=== PATIENT | female | born 1990 | race Two or more races ===

== ENCOUNTER 2016-03-13 12:19 | Inpatient (IN) | payer MEDICARE, MEDICAID ==
[~2016-03-13] VITALS: Ht 139.7 cm; Wt 30.0 kg
[2016-03-13] VITALS (15 sets, daily range): BP systolic 123–140; BP diastolic 81–106; PULSE 70–72; RESP 21–29; TEMP 99
[~2016-03-13 12:19] MED LIST: CARSR60 PO; FOLI-49 PO; NEPH PO; PANT40TA3 PO
[2016-03-13] MEDS ORDERED: ALBUTEROL 0.5% (NEB) 2.5 MG/0.5 ML AMP INH STA (12:31)
[2016-03-13] MEDS ORDERED: IPRATROPIUM (NEB) 0.5 MG/2.5 ML AMP INH STA (12:31)
--- NOTE | 2016-03-13 12:55 | RADRPT ---
PROCEDURE: XR Chest. CLINICAL INDICATION: shortness of breath TECHNIQUE: Single portable view of the chest was obtained COMPARISON: 02/27/14 FINDINGS: There is moderate cardiomegaly. There is pulmonary vascular congestion. There are bilateral perihilar and lower lobe infiltrates. There is a right upper lobe infiltrate. There is no pleural effusion. There is a left-sided pacemaker in place. The right-sided Perma-Cath has been removed.. There is no pneumothorax. The bones and soft tissues are unremarkable. RPTAT: AA IMPRESSION: Moderate cardiomegaly with pulmonary vascular congestion. Bilateral perihilar and lower lobe infiltrates. Right upper lobe infiltrate. .To Ward MD, Date Time Electronically viewed and signed by .To Ward MD, on 03/13/2016 12:55 .S/
[2016-03-13 13:46] LABS: HEMATOCRIT 30.9 % (37.0-47.0); HEMOGLOBIN 10.2 g/dl (12.0-16.0); MEAN CORPUSCULAR HEMOGLOBIN 34.3 pg (29.0-33.0); MEAN CORPUSCULAR HGB CONC 33.2 g/dl (32.0-37.0); MEAN CORPUSCULAR VOLUME 103.3 fl (82.0-101.0); MEAN PLATELET VOLUME 8.3 fl (7.4-10.4); RED BLOOD COUNT 2.99 10^6/ul (4.20-5.40); RED CELL DISTRIBUTION WIDTH 18.7 % (11.5-14.5); UNCORRECTED WBC 8.6 10^3/ul (4.8-10.8)
[2016-03-13 13:54] LABS: ALBUMIN 4.5 g/dl (3.3-4.9); CONDITION 1
[2016-03-13 13:55] LABS: INR 1.3; PARTIAL THROMBOPLASTIN TIME 36.2 Sec (25.0-35.0); POTASSIUM 4.4 mmol/L (3.5-5.1); PROTIME 16.3 Sec (12.2-14.2); PT RATIO 1.3
[2016-03-13 13:57] LABS: ALBUMIN/GLOBULIN RATIO 1.32; BILIRUBIN,INDIRECT 0.9 mg/dl (0-1.1); BILIRUBIN,TOTAL 0.9 mg/dl (0.2-1.3); CREATININE 2.73 mg/dl (0.44-1.00); TOTAL PROTEIN 7.9 g/dl (6.1-8.1)
[2016-03-13 13:58] LABS: CALCIUM 8.3 mg/dl (8.4-10.2)
--- NOTE | 2016-03-13 14:18 | ERA ---
ER Documentation Chief Complaint Date/Time DATE: 03/13/16 TIME: 14:13 Chief Complaint sob after hd today HPI 25-year-old female presents to the emergency department with her family for evaluation of shortness of breath. Patient was in her usual state of health until the last few days which time she began developing a low-grade fever. She was evaluated at her dialysis center today where fever was noted. She was treated with IV antibiotics including cephalosporins and vancomycin through dialysis today. Patient had approximately 1 L of fluid removed during dialysis, which is less than she normally has. Upon returning home after dialysis today she became increasingly short of breath and came to the emergency department for evaluation. Patient provides very limited further history. According to the family, She was otherwise in her normal state of health and doing well up until the last few days but then became acutely short of breath. She has had this previously with fluid overload. ROS All systems reviewed and are negative except as per history of present illness. Medications Home Meds Reported Medications Multivit/Ca Carb/B Cmplx/Fa* (Lalita-Abigail*) 1 Tab Tab, 1 TAB PO DAILY, TAB 02/27/14 Diltiazem Hcl* (Cardizem SR*) 60 Mg Capsr, 60 MG PO Q12 for HOLD DAYS OF DIALYSIS, CAP 02/27/14 Folic Acid* (Folic Acid*) 1 Mg Tablet, 1 MG PO DAILY, TAB 09/17/13 Pantoprazole* (Protonix*) 40 Mg Tablet.dr, 40 MG PO DAILY for STOMACH PAIN, TAB 09/17/13 Allergies Allergies: Coded Allergies: ciprofloxacin (Verified Allergy, Severe, 03/13/16) heparin (Verified Allergy, Severe, 03/13/16) levofloxacin (Verified Allergy, Severe, 03/13/16) acetaminophen (Verified Allergy, Mild, 03/13/16) potassium (Verified Allergy, Unknown, 03/13/16) PMhx/Soc History of Surgery: Yes (PACEMAKER 3YRS,CHANGED BATTERY LAST YRS) Anesthesia Reaction: No Hx Neurological Disorder: No Hx Respiratory Disorders: No Hx Cardiac Disorders: No ("FAINT",PACEMAKER 3YRS) Hx Psychiatric Problems: No Hx Miscellaneous Medical Probl: Yes (hd tths, ckd) Hx Alcohol Use: No Hx Substance Use: No Hx Tobacco Use: No Smoking Status: Never smoker FmHx Noncontributory for chief complaint with supportive family at the bedside. Physical Exam Vitals Vital Signs Date Time Temp Pulse Resp B/P Pulse Ox O2 Delivery O2 Flow Rate FiO2 03/13/16 12:32 99.7 70 32 144/94 78 03/13/16 12:31 97.6 69 26 168/87 94 Physical Exam GENERAL: Patient is a frail cachectic chronically and acutely ill female who appears in significant respiratory compromise HEENT: Pupils equal, round, and reactive to light. EOMI. There is no scleral icterus. No JVD is noted NECK: C-spine is soft and supple, there is no meningismus. There is no cervical lymphadenopathy. No stridor is noted LUNGS: Crackles at bilateral bases. She is tachypneic and using accessory muscles. I appreciate no wheezing HEART: Regular rate and rhythm, no murmurs, clicks, rubs or gallops. Pacemaker is appreciated ABDOMEN: Soft, non-tender, non-distended. There are bowel sounds in all four quadrants. No rebound or guarding. EXTREMITIES: There is no peripheral cyanosis or edema. No focal swelling or erythema. There is a dialysis graft noted. NEURO: The patient moves all four extremities with 5/5 strength. Cranial nerves II - XII are intact. Normal gait. Alert and oriented SKIN: There is no apparent rash or petechiae. HEME/LYMPHATIC: There is no evidence of excessive bruising or lymphedema. PSYCHIATRIC: The patient does not appear anxious or depressed. Result Diagram: 03/13/16 1320 Results 24 hrs Laboratory Tests Test 03/13/16 13:20 Activated Partial Thromboplast Time 36.2Sec Basophils # 0.010^3/ul Basophils % 0.1% Blood Morphology Comment Eosinophils # 0.010^3/ul Eosinophils % 0.5% Hematocrit 30.9% Hemoglobin 10.2g/dl INR International Normalized Ratio 1.30 Lymphocytes # 0.310^3/ul Lymphocytes % 3.9% Mean Corpuscular Hemoglobin 34.3pg Mean Corpuscular Hemoglobin Concent 33.2g/dl Mean Corpuscular Volume 103.3fl Mean Platelet Volume 8.3fl Monocytes # 0.710^3/ul Monocytes % 8.4% Neutrophils # 7.510^3/ul Neutrophils % 87.1% Nucleated Red Blood Cells # 0.010^3/ul Nucleated Red Blood Cells % 0.0/100WBC Platelet Count Pending Prothrombin Time 16.3Sec Prothrombin Time Ratio 1.3 Red Blood Count 2.9910^6/ul Red Cell Distribution Width 18.7% White Blood Count 8.610^3/ul Current Medications Medications (Trade) Dose Ordered Sig/Eleonora Route PRN Reason Start Time Stop Time Status Last Admin Dose Admin Albuterol (Proventil 0.5% (Neb)) 5 mg ONCE STAT INH 03/13/16 12:31 03/13/16 12:32 DC Ipratropium [place] (Atrovent 0.02% (Neb)) 0.5 mg ONCE STAT INH 03/13/16 12:31 03/13/16 12:32 DC Procedures/MDM Patient was taken to a room, seen and evaluated. Comfort measures were initiated. Patient was immediately initiated on nasal cannula and then facemask for her hypoxemia. This was then escalated to BiPAP as her respiratory status became clear that she needed more support. The BiPAP helped significantly Diagnostic tests were ordered and reviewed. 3 LEAD RHYTHM STRIP: Ventricular pacemaker EK lead EKG reviewed by myself: Ventricular pacemaker Pacemaker morphology without obvious ST elevation Impression: Pacemaker RADIOLOGY: reviewed with the radiologist CONSULTATION: Dr. Lake was notified for admission and came to the bedside and evaluated the patient. He requested that Dr. Goldman admit the patient. He was notified and admitted the patient. REEVALUATION: Patient improved significantly with the BiPAP. I considered intubation, but this not was not needed. Patient's vital signs otherwise remained improved MEDICAL DECISION MAKING: This is a 25-year-old female who presents acutely ill with pulmonary edema in the setting of a fever. At this point, patient seems to have mostly a congestive heart failure type presentation. She has significant fluid overload requiring BiPAP for hypoxemic respiratory distress. She is also likely septic given her fever at dialysis. She already received antibiotics earlier today at dialysis and therefore I have not reinitiated the antibiotics while in the emergency department. Clearly the fluids are not appropriate for sepsis and she presents critically ill with fluid overload in her lungs. Patient has required aggressive respiratory support and will require further admission to the hospital for dialysis which will be arranged with Dr. Lake as soon as possible. Patient also require further IV antibiotics and monitoring. CRITICAL CARE: Time:>35 minutes Patient has a significant chance of clinical deterioration Treatments/Evaluations: Close monitoring and treatment of unstable vital signs, cardiorespiratory, and neurologic status, while maintaining tight balance of fluid, respiratory, and cardiac interventions. Departure Diagnosis: Primary Impression: Respiratory failure Additional Impressions: Pulmonary edema Pneumonia Condition: Serious KODI BHANDARI Mar 13, 2016 14:18
[2016-03-13 14:29] LABS: PLATELETS CLUMPS RARE
[2016-03-13 14:30] LABS: TROPONIN-I 0.223 ng/ml (0.00-0.12)
[2016-03-13 14:39] LABS: LYMPHOCYTES # 0.5 10^3/ul (0.8-2.9); MONOCYTE # 0.3 10^3/ul (0.3-0.9); NEUTROPHIL # 7.4 10^3/ul (1.6-7.5); PLATELET COUNT 79 10^3/UL (140-440)
[2016-03-13 14:57] LABS: AADO2 Arterial 218.2 mmHg (7.0-24.0); Allen Test ACCEPTAB; Arterial Base Excess -13.6 mmol/L (-3.0-3); Arterial COHb 0.3 % (0.0-3.0); Arterial HCO3 10.6 mmol/L (22.0-26.0); Arterial MetHb 0.3 % (0.0-1.5); Arterial Total Hemglobin 11.5 g/dl (12.0-18.0); Blood Gas IEPAP 20/8; MODE MASK - BIPAP
--- NOTE | 2016-03-13 16:28 | CONS ---
Date/Time of Note Date/Time of Note DATE: 03/13/16 TIME: 16:26 Assessment/Plan Assessment/Plan Chief Complaint/Hosp Course pul edema esrd pneumonia anemia plan hd Problems: Consultation Date/Type/Reason Admit Date/Time Type of Consultation: [id number] Social History Smoking Status: Never smoker Exam/Review of Systems Vital Signs Vitals Vital Signs Date Time Temp Pulse Resp B/P Pulse Ox O2 Delivery O2 Flow Rate FiO2 03/13/16 15:37 99.6 70 31 143/90 100 BIPAP 03/13/16 15:16 50 Results Result Diagram: 03/13/16 1320 03/13/16 1320 Results 24 hrs Laboratory Tests Test 03/13/16 12:31 03/13/16 13:20 Arterial Blood HCO3 10.6 L Arterial Blood Base Excess -13.6 L Arterial Blood Oxygen Saturation 99.6 H Newton Test ACCEPTAB Arterial Blood Gas Puncture Site Left Radial Arterial Blood Carboxyhemoglobin 0.3 Arterial Blood Date Drawn 03/13/2016 2:40:52 PM Arterial Blood Methemoglobin 0.3 Arterial Blood pCO2 (Temp correct) 21.0 L Arterial Blood pH (Temp corrected) 7.320 L Arterial Blood pO2 (Temp corrected) 473.8 H Blood Gas A-a O2 Differential 218.2 H Blood Gas Actual Respiration Rate 30 Blood Gas IPAP/EPAP Ratio 20/8 Blood Gas Modality MASK - BIPAP Blood Gas Notified Time 03/13/2016 2:57:37 PM Blood Gas Notified Whom JLD Blood Gas Respiration Rate 20.0 Blood Gas Specimen Source Blood arterial Blood Gas Temperature 37.0 FiO2 100.0 Oxyhemoglobin Percent 99.0 Total Hemoglobin 11.5 L Activated Partial Thromboplast Time 36.2 H Alanine Aminotransferase (ALT/SGPT) 63 Albumin 4.5 Albumin/Globulin Ratio 1.32 Alkaline Phosphatase 199 H Anion Gap 36 H Aspartate Amino Transf (AST/SGOT) 107 H Band Neutrophils % 4.0 Basophils # Basophils % Blood Morphology Comment Blood Urea Nitrogen 15 Calcium Level 8.3 L Carbon Dioxide Level 15 L Chloride Level 94 L Clumped Platelets RARE Creatinine 2.73 H Differential Comment MANUAL DIFF Direct Bilirubin 0.00 Eosinophils # Eosinophils % Globulin 3.40 H Glucose Level 78 Hematocrit 30.9 L Hemoglobin 10.2 L INR International Normalized Ratio 1.30 Indirect Bilirubin 0.9 Lactic Acid Level 16.2 *H Large Platelets OCCASIONAL Lymphocytes # 0.5 L Lymphocytes % 6.0 L Mean Corpuscular Hemoglobin 34.3 H Mean Corpuscular Hemoglobin Concent 33.2 Mean Corpuscular Volume 103.3 H Mean Platelet Volume 8.3 Monocytes # 0.3 Monocytes % 4.0 Neutrophils # 7.4 Neutrophils % 86.0 H Nucleated Red Blood Cells # Nucleated Red Blood Cells % Platelet Count 79 #L Potassium Level 4.4 Prothrombin Time 16.3 H Prothrombin Time Ratio 1.3 Red Blood Count 2.99 #L Red Cell Distribution Width 18.7 #H Sodium Level 141 Total Bilirubin 0.9 Total Protein 7.9 Troponin I 0.223 *H White Blood Count 8.6 DALLAS CABRAL MD Mar 13, 2016 16:27
--- NOTE | 2016-03-13 17:51 | CONS ---
DATE OF ADMISSION: 03/13/2016 DATE OF CONSULTATION: 03/13/2016 TYPE OF CONSULTATION: Nephrology consultation. HISTORY OF PRESENT ILLNESS: The patient is a 25-year-old female with history of retinitis pigmentos a, ESRD, history of pacemaker placement. AV fistula in the right upper extremity. She went to the dialysis center. Had a fever of 101. The patient was okay when dialysis was completed but before t hat, the patient had 2 blood cultures done and received vancomycin, Ancef and gentamicin. After the dialysis, the patient's family took her home and then came back with shortness of breath. The kaushal ent is currently on oxygen and is short of breath. She is being admitted for further management. T he patient's temperature of 99.7 in the ER. Blood pressure 143/90, potassium 4.4. Lactic acid 3.92 . Hematocrit 30.9. The patient is being admitted for further management of pO2 of 473, pH 7.32. C hest x-ray with pulmonary edema and lung infiltrate. PAST MEDICAL HISTORY: Positive for ESRD, hypertension, retinitis pigmentosa, legal blindness. The patient has hypertension, history of pacemaker placement and hypophosphatemia and anemia. ALLERGIES: 1. TYLENOL. 2. CIPROFLOXACIN. 3. HEPARIN. 4. LEVOFLOXACIN. 5. POTASSIUM. SOCIAL HISTORY: Negative. FAMILY HISTORY: Negative. MEDICATION HISTORY: Patient at home is on: 1. Cardizem. 2. Folic acid. 3. Multivitamins. 4. Protonix. 5. Tums. REVIEW OF SYSTEM: HEENT: Unremarkable. RESPIRATORY: Short of breath. CARDIOVASCULAR: No chest pain, palpitation. ABDOMEN: Dyspepsia. EXTREMITIES: Unremarkable. CENTRAL NERVOUS SYSTEM: Unremarkable. PHYSICAL EXAMINATION: GENERAL: The patient is awake, alert, short of breath. VITAL SIGNS: Pulse 77, blood pressure 139/90. HEAD: Atraumatic, normocephalic. Pupils pale conjunctivae. No icterus. NECK: Supple. LUNGS: Rhonchi and crepitation bilaterally. CARDIOVASCULAR: S1, S2 normal. ABDOMEN: Soft, nontender. Bowel sounds present. No palpable mass. EXTREMITIES: No cyanosis, clubbing, or edema. CENTRAL NERVOUS SYSTEM: The patient is awake, alert, moving both upper and lower extremities. LABORATORY DATA: As mentioned above. IMPRESSION: 1. Patient has acute hypoxic respiratory failure, lung infiltrate. 2. Pulmonary edema, rule out ischemic heart disease. 3. End-stage renal disease. 4. Hypertension. 5. Anemia. 6. Retinitis pigmentosa. 7. Lactic acidosis. 8. Positive troponin. PLAN: To continue oxygen. Patient will have ultrafiltration. The case was discussed with Dr. Shawanda Goldman. Antibiotic per Dr. Goldman at this point. Dictated By: DALLAS CABRAL MD BS/NTS Conf#: [id number] DID#: [id number]
[2016-03-13] MEDS ORDERED: OSELTAMIVIR 30 MG CAP PO ONE (19:00)
[2016-03-13] MEDS ORDERED: LEVALBUTEROL (NEB) 0.63 MG/3 ML AMP HHN PRN (19:00)
[2016-03-13] MEDS ORDERED: GENTAMICIN IV PER PHARMACY XX SCH (19:00)
[2016-03-13] MEDS ORDERED: VANCOMYCIN IV PER PHARMACY XX SCH (19:00)
--- NOTE | 2016-03-13 19:26 | HP ---
DATE OF ADMISSION: 03/13/2016 CHIEF COMPLAINT: Shortness of breath the patient developed after dialysis. HISTORY OF PRESENT ILLNESS: The patient is an unfortunate 25-year-old female with past medical hist ory positive for end-stage renal disease, hemodialysis dependent. The patient is legally blind. Th e patient developed cough and fever. The patient was evaluated in the dialysis center for fever. T he patient was given vancomycin with hemodialysis. The patient underwent hemodialysis with removal of 1 liter of fluids. Upon returning home after hemodialysis, the patient had increase in shortness of breath and presented to the emergency room for further evaluation. In the emergency room, manuelito jacobs underwent a chest x-ray, which revealed ____ cardiomegaly with pulmonary vascular congestion, terrence ateral perihilar and lower lobe infiltrates and right upper lobe infiltrate. The patient was noted to have low-grade fever of 99.7. The patient's lactic acid was elevated to 16.2. The patient was p laced on BiPAP with some improvement. The patient will be admitted for further evaluation and manag ement to intensive care unit. The patient also had blood cultures drawn in the dialysis center and was given vancomycin, Ancef, and gentamicin. 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 PAST SURGICAL HISTORY: Status post AV fistula recreation the right upper extremity, status post per manent pacemaker insertion 3 years ago and is status post battery change and pacemaker 1 year ago. SOCIAL HISTORY: The patient lives at home with her family. Denies any history of alcohol use, toba gl accountant use, illicit drug use. ALLERGIES: 1. ACETAMINOPHEN. 2. CIPROFLOXACIN. 3. HEPARIN. 4. LEVAQUIN. 5. POTASSIUM. MEDICATIONS ON ADMISSION: 1. Lalita-Abigail. 2. Cardizem. 3. Folic acid. 4. Protonix. REVIEW OF SYSTEMS: The patient complains of developed generalized weakness. A 12-point review of s ystems is negative unless what mentioned in the HPI. PHYSICAL EXAMINATION: GENERAL: This is a well-developed, cachectic female currently on the BiPAP, awake, alert. HEENT: The patient is legally blind. Oral mucosa is pink and moist. NECK: Supple. No cervical lymphadenopathy. JVD is present. LUNGS: With scattered rhonchi, diminished at the bases. CARDIOVASCULAR: Normal S1, S2. No murmurs, gallops, clicks, rubs noted. ABDOMEN: Flat, soft, nondistended, nontender. Bowel sounds present. No guarding, no tenderness. EXTREMITIES: With prominent muscle wasting. Right upper extremity with AV fistula. No cyanosis no lucinda. Pulses equal bilaterally 2+. SKIN: There is no rash noted. NEUROLOGIC: The patient is awake, alert, and oriented to name and situation. No focal deficits not ed. LABORATORY DATA: On admission, CBC: White blood cells 8.6, hemoglobin 10.2, hematocrit 30.9, plate lets 79. Chemistry: Sodium is 141, potassium is 4.4, chloride 94, carbon dioxide 15, anion gap 36, BUN 15, creatinine 2.73, glucose 78. Lactic acid is 16.2. AST is 107, ALT 63, alkaline phosphatas e 199. Troponin 0.2. ASSESSMENT AND PLAN: 1. Pneumonia. I will ask Dr. Reed to see patient in pulmonology consultation. I will continue the patient on vancomycin and gentamicin. Continue BiPAP and respiratory treatments. 2. End-stage renal disease, hemodialysis dependent. Dr. Lake will be following patient in nephrol ogy consultation. Will continue remove fluids with hemodialysis. 3. Rule out acute coronary syndrome. Will ask Dr. Woodard to see patient in cardiology consultation . Obtain cardiac enzymes q.8h. x3. 4. Pulmonary edema. 5. Hypertension. 6. Anemia of chronic disease. 7. Legally blind. 8. I will start heparin for deep venous thrombosis prophylaxis and Protonix for peptic ulcer diseas e prophylaxis. Further recommendations based on clinical course. Plan of care discussed with Dr. Tamayo. Dictated By: BRENNA JENSEN TRANSITION RN for GAGE TAMAYO MD SR/NTS Conf#: [id number] DID#: [id number]
[2016-03-13] MEDS ORDERED: DEXTROSE 50% 50 ML SYRINGE ONE (19:59)
[2016-03-13] MEDS: LEVALBUTEROL (NEB) 0.63 MG/3 ML AMP HHN SCH (20:00)
[2016-03-13] MEDS ORDERED: DEXTROSE 50% 50 ML SYRINGE IV STA (20:07)
[2016-03-13] MEDS ORDERED: GENTAMICIN IVPB SCH (21:00)
[2016-03-13] MEDS ORDERED: VANCOMYCIN 500MG/NS (PMX) 100 ML IVPB SCH (21:00)
[2016-03-13] MEDS ORDERED: SOD CHLORIDE 0.9% IVPB SCH (21:00)
[2016-03-13] MEDS ORDERED: HEPARIN 5,000 UNIT/0.5 ML SYG SC SCH (21:00)
[2016-03-14] VITALS (43 sets, daily range): BP systolic 90–154; BP diastolic 50–102; PULSE 70–76; RESP 18–33; Ht 139.7 cm; Wt 30.0 kg
[2016-03-14 01:32] LABS: CK-MB 16.6 ng/ml (0.0-2.4)
[2016-03-14 01:36] LABS: TROPONIN-I 0.697 ng/ml (0.00-0.12)
[2016-03-14] MEDS: LEVALBUTEROL (NEB) 0.63 MG/3 ML AMP HHN SCH ×4 (01:59→20:00)
[2016-03-14] MEDS: PANTOPRAZOLE 40 MG INJ IV SCH (05:25)
[2016-03-14 05:35] LABS: HEMATOCRIT 27.4 % (37.0-47.0); HEMOGLOBIN 9.4 g/dl (12.0-16.0); LYMPHOCYTES # 0.5 10^3/ul (0.8-2.9); LYMPHOCYTES % 5.1 % (15.0-51.0); MEAN CORPUSCULAR HEMOGLOBIN 34.8 pg (29.0-33.0); MEAN CORPUSCULAR HGB CONC 34.1 g/dl (32.0-37.0); MEAN CORPUSCULAR VOLUME 102.3 fl (82.0-101.0); MEAN PLATELET VOLUME 8.6 fl (7.4-10.4); MONOCYTE # 0.5 10^3/ul (0.3-0.9); MONOCYTES % 4.9 % (0.0-11.0); NEUTROPHIL # 8.6 10^3/ul (1.6-7.5); PLATELET COUNT 57 10^3/UL (140-440); RED BLOOD COUNT 2.68 10^6/ul (4.20-5.40); UNCORRECTED WBC 9.5 10^3/ul (4.8-10.8); WHITE BLOOD COUNT 9.5 10^3/ul (4.8-10.8)
[2016-03-14 05:47] LABS: CONDITION 1; LH ANALYZER COMMENTS 1
[2016-03-14 05:52] LABS: ALBUMIN 3.8 g/dl (3.3-4.9)
[2016-03-14 05:53] LABS: POTASSIUM 3.9 mmol/L (3.5-5.1)
[2016-03-14 05:55] LABS: ALBUMIN/GLOBULIN RATIO 1.52; BILIRUBIN,INDIRECT 1.1 mg/dl (0-1.1); BILIRUBIN,TOTAL 1.1 mg/dl (0.2-1.3); CREATININE 1.6 mg/dl (0.44-1.00); TOTAL PROTEIN 6.3 g/dl (6.1-8.1)
[2016-03-14 05:56] LABS: CALCIUM 8.1 mg/dl (8.4-10.2)
[2016-03-14 06:28] LABS: CK-MB 20.3 ng/ml (0.0-2.4)
[2016-03-14 06:34] LABS: TROPONIN-I 0.922 ng/ml (0.00-0.12)
[2016-03-14 08:36] LABS: LH ANALYZER COMMENTS 1
[2016-03-14] MEDS ORDERED: SOD CHLORIDE 0.9% IVPB SCH (09:00)
[2016-03-14] MEDS ORDERED: GENTAMICIN IVPB SCH (09:00)
[2016-03-14] MEDS: ASPIRIN 81 MG TAB PO SCH (09:11)
--- NOTE | 2016-03-14 09:53 | CONS ---
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 - positive troponin on admission, CAD, +pacemaker recommendations - pending results: blood and sputum cultures - ordered: procalcitonin, hepatitis and HIV screen, HCG, abdominal KRISTI to eval source of transaminitis, MRSA screen - check serial lactic acid, LFTs - I recommend: IV vancomycin, pip/tazo and oseltamivir, all renally dosed - management d/w Pt, her parents, [employer] the total time I took to care for this Pt today was from 0940 to 1020 Problems: Consultation Date/Type/Reason Admit Date/Time Date of Consultation: Mar 14, 2016 Type of Consultation: ID Reason for Consultation PNA Referring Provider: BRENNA VALENTIN Hx of Present Illness This is a 25 yo female with 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 Pt started having non-productive cough 2 days prior to admission. Yesterday Pt had fever at HD center. Blood cultures were collected, and Pt was given ABX (vancomycin, ?cefazolin and gentamicin). Pt remained febrile and developed dyspnea adter HD, and so was brought to ER. CXR showed multi-lobar PNA. Pt tested positive for influenza A. This morning, Pt c/o intermittent dry cough and chills. No chest pain, myalgia or GI Sx. Pt reports exposure to coughing Pts at the same HD center. No other sick contact [facility] members. At present, Pt's on vancomycin and gentamicin. Pt was given one dose of oseltamivir yesterday. SHAWN Valentin requested ID consultation on this Pt. Constitutional: febrile Eyes: other (blind (legally)) Respiratory: cough, shortness of breath, No pain, No pleuritic pain, No sputum, No wheezing Cardiovascular: no complaints Gastrointestinal: no complaints Genitourinary: other (HD dependent) Skin: no complaints Neurologic: no complaints Endocrine: no complaints Lymphatic: no complaints Immunologic: no complaints Past Medical History Medical History: coronary artery disease (+pacemaker), renal disease, other ( ESRD on HD via AVG on RUE, blind) Social History Alcohol Use: none Smoking Status: Never smoker Drug Use: none Exam/Review of Systems Vital Signs Vitals Vital Signs Date Time Temp Pulse Resp B/P Pulse Ox O2 Delivery O2 Flow Rate FiO2 03/14/16 09:30 70 21 118/72 98 Nasal Cannula 1.0 03/14/16 08:00 99.4 03/13/16 23:09 40 Intake and Output 03/13/16 03/13/16 03/14/16 15:00 23:00 07:00 Intake Total 550 ml Output Total 5320 ml Balance -4770 ml Exam Constitutional: frail Psych: nl mood/affect, no complaints Head: atraumatic, normocephalic Eyes: nl conjunctiva, nl lids ENMT: nl external ears & nose, nl lips & teeth, nl nasal mucosa & septum, other (b/ blindness) Neck: supple Respiratory: crackles/rales Cardiovascular: nl pulses, regular rate and rhythm Gastrointestinal: non-tender, soft Musculoskeletal: No swelling Extremities: other (AVG on RUE) Neurological: nl mental status Skin: nl turgor Results Result Diagram: 03/14/16 0500 03/14/16 0500 Results 24 hrs Laboratory Tests Test 03/13/16 12:31 03/13/16 13:20 03/13/16 15:42 03/13/16 19:57 Arterial Blood HCO3 10.6 L Arterial Blood Base Excess -13.6 L Arterial Blood Oxygen Saturation 99.6 H Newton Test ACCEPTAB Arterial Blood Gas Puncture Site Left Radial Arterial Blood Carboxyhemoglobin 0.3 Arterial Blood Date Drawn 03/13/2016 2:40:52 PM Arterial Blood Methemoglobin 0.3 Arterial Blood pCO2 (Temp correct) 21.0 L Arterial Blood pH (Temp corrected) 7.320 L Arterial Blood pO2 (Temp corrected) 473.8 H Blood Gas A-a O2 Differential 218.2 H Blood Gas Actual Respiration Rate 30 Blood Gas IPAP/EPAP Ratio 20/8 Blood Gas Modality MASK - BIPAP Blood Gas Notified Time 03/13/2016 2:57:37 PM Blood Gas Notified Whom JLD Blood Gas Respiration Rate 20.0 Blood Gas Specimen Source Blood arterial Blood Gas Temperature 37.0 FiO2 100.0 Oxyhemoglobin Percent 99.0 Total Hemoglobin 11.5 L Activated Partial Thromboplast Time 36.2 H Alanine Aminotransferase (ALT/SGPT) 63 Albumin 4.5 Albumin/Globulin Ratio 1.32 Alkaline Phosphatase 199 H Anion Gap 36 H Aspartate Amino Transf (AST/SGOT) 107 H Band Neutrophils % 4.0 Basophils # Basophils % Blood Morphology Comment Blood Urea Nitrogen 15 Calcium Level 8.3 L Carbon Dioxide Level 15 L Chloride Level 94 L Clumped Platelets RARE Creatinine 2.73 H Differential Comment MANUAL DIFF Direct Bilirubin 0.00 Eosinophils # Eosinophils % Globulin 3.40 H Glucose Level 78 Hematocrit 30.9 L Hemoglobin 10.2 L INR International Normalized Ratio 1.30 Indirect Bilirubin 0.9 Lactic Acid Level 16.2 *H 17.8 *H Large Platelets OCCASIONAL Lymphocytes # 0.5 L Lymphocytes % 6.0 L Mean Corpuscular Hemoglobin 34.3 H Mean Corpuscular Hemoglobin Concent 33.2 Mean Corpuscular Volume 103.3 H Mean Platelet Volume 8.3 Monocytes # 0.3 Monocytes % 4.0 Neutrophils # 7.4 Neutrophils % 86.0 H Nucleated Red Blood Cells # Nucleated Red Blood Cells % Platelet Count 79 #L Potassium Level 4.4 Prothrombin Time 16.3 H Prothrombin Time Ratio 1.3 Red Blood Count 2.99 #L Red Cell Distribution Width 18.7 #H Sodium Level 141 Total Bilirubin 0.9 Total Protein 7.9 Troponin I 0.223 *H White Blood Count 8.6 Bedside Glucose 31 *L Test 03/13/16 20:32 03/13/16 21:22 03/14/16 01:02 03/14/16 05:00 Bedside Glucose 310 H 231 H Creatine Kinase 485 H 787 #H Creatine Kinase Index 3.4 2.6 Creatinine Kinase MB (Mass) 16.60 H 20.30 H Troponin I 0.697 *H 0.922 *H Alanine Aminotransferase (ALT/SGPT) 638 H Albumin 3.8 Albumin/Globulin Ratio 1.52 Alkaline Phosphatase 174 H Anion Gap 34 H Aspartate Amino Transf (AST/SGOT) 1041 H Basophils # 0.0 Basophils % 0.0 Blood Morphology Comment Blood Urea Nitrogen 13 Calcium Level 8.1 L Carbon Dioxide Level 19 L Chloride Level 89 L Creatinine 1.60 #H Direct Bilirubin 0.00 Eosinophils # 0.0 Eosinophils % 0.0 Globulin 2.50 Glucose Level 65 #L Hematocrit 27.4 L Hemoglobin 9.4 L Hemoglobin A1c 4.7 Indirect Bilirubin 1.1 Lactic Acid Level 16.8 *H Lymphocytes # 0.5 L Lymphocytes % 5.1 L Mean Corpuscular Hemoglobin 34.8 H Mean Corpuscular Hemoglobin Concent 34.1 Mean Corpuscular Volume 102.3 H Mean Platelet Volume 8.6 Monocytes # 0.5 Monocytes % 4.9 Neutrophils # 8.6 H Neutrophils % 90.0 H Nucleated Red Blood Cells # 0.0 Nucleated Red Blood Cells % 0.0 Platelet Count 57 #L Potassium Level 3.9 Red Blood Count 2.68 L Red Cell Distribution Width 18.0 H Sodium Level 138 Total Bilirubin 1.1 Total Protein 6.3 # White Blood Count 9.5 Test 03/14/16 06:22 Bedside Glucose 72 Medications Medications Current Medications Gentamicin Sulfate (Gentamicin Iv Per Pharmacy) GENTAMICIN PER PHARMACY NOTE XX ; Start 03/13/16 at 19:00 Pantoprazole (Protonix Iv) 40 mg DAILY@06 IV Last administered on 03/14/16 05: 25; Admin Dose 40 MG; Start 03/14/16 at 06:00 Miscellaneous Information (*Rx Drug Level Order Reminder*) VANCO RANDOM LEVEL... ONCE ONCE XX ; Start 03/15/16 at 05:00; Stop 03/15/16 at 05:01 Aspirin (Aspirin) 81 mg DAILY PO Last administered on 03/14/16 09:11; Admin Dose 81 MG; Start 03/14/16 at 09:00 HUGO RODRIGUEZ M.D. Mar 14, 2016 09:52
--- NOTE | 2016-03-14 10:10 | RADRPT ---
PROCEDURE: XR Chest. CLINICAL INDICATION: Shortness of breath. TECHNIQUE: Single frontal view. COMPARISON: 03/13/2016. FINDINGS: Bilateral air space disease consistent with pulmonary edema or multifocal pneumonia slightly improve d. There is a left-sided dual lead permanent pacemaker. The heart is enlarged. There is no pleural effusion. There is no pneumothorax. IMPRESSION: 1. Slightly improved appearance of the lungs. 2. No other change from 03/13/2016. RPTAT: QQ .Peewee Morgan MD, Date Time Electronically viewed and signed by .Peewee Morgan MD, MD on 03/14/2016 10:09 .R/
[2016-03-14 12:17] LABS: TROPONIN-I 2.17 ng/ml (0.00-0.12)
[2016-03-14 12:18] LABS: CK-MB 33.9 ng/ml (0.0-2.4)
--- NOTE | 2016-03-14 12:35 | RADRPT ---
PROCEDURE: US Abdomen. CLINICAL INDICATION: Transaminitis. Hepatitis. Evaluate for liver abscess. TECHNIQUE: Multiple sonographic images of the abdomen were obtained. COMPARISON: CT abdomen/pelvis 09/24/2013. Abdominal ultrasound 09/17/2013. FINDINGS: The visualized pancreas, aorta and IVC are unremarkable. The liver is homogeneous in echogenicity and measures approximately 13.0 cm in a craniocaudal dimens ion. There is no evidence of focal hepatic lesion or intrahepatic biliary duct dilatation. There is no evidence of liver mass or fluid collection. There is mild increased periportal echogenicity whi ch may be related to periportal edema. The main portal vein is patent with normal antegrade flow. T he gallbladder is not distended. There are no internal echoes to suggest the presence of cholelithi asis. Mild gallbladder wall thickening is present measuring approximately 3.7 mm. There is no talia cholecystic fluid. The common bile duct measures 2.5 mm. Bilateral symmetric renal atrophy with increased renal parenchymal echogenicity is present. The righ t kidney measures 4.8 cm in length. The left kidney measures 4.9 cm in length. There is no hydroneph rosis or abnormal perinephric fluid collection. The spleen measures 7.2 cm in a sagittal dimension. There is no ascites. IMPRESSION: Bilateral atrophic echogenic kidneys compatible with sequelae of renal parenchymal disease. Mild increased periportal echogenicity which may be related to periportal edema given the history of hepatitis. There is no evidence of hepatic mass or fluid collection. RPTAT: HLST .Yesica Payne MD, Date Time Electronically viewed and signed by .Yesica Payne MD, on 03/14/2016 12:35 .T/
--- NOTE | 2016-03-14 13:36 | CONS ---
DATE OF ADMISSION: 03/13/2016 DATE OF CONSULTATION: 03/14/2016 REASON FOR CONSULTATION: Positive troponin. REQUESTING PHYSICIAN: Gage Goldman MD HISTORY OF PRESENT ILLNESS: Ms. Willis is a 25-year-old female with history of end-stage renal disea se on hemodialysis, complete heart block status post permanent pacemaker, AV fistula placement, lega lly blind secondary to retinitis pigmentosa, anemia of chronic disease, who presented from dialysis with shortness of breath and fevers. Initially upon arrival, temperature of 99.7, blood pressure 16 8/87, pulse 69, respiratory rate 26, saturating 94%. The patient's labs revealed a white count of 8 .6, hemoglobin 10.2, platelet count of 79. Sodium of 138, potassium 3.9, creatinine 1.6, BUN 13. L actic acid of 16.8. AST of 1041, ALT of 638, alkaline phosphatase of 174. CK total 787, CK-MB of 2 0.3, CK index 2.6. Troponin 0.922, positive. INR of 1.3. ABG revealing a pH of 7.32, PaO2 of 473, pCO2 of 21. The patient underwent a chest x-ray revealing moderate cardiomegaly, pulmonary vascula r congestion, bilateral perihilar and lower lobe infiltrates, right upper lobe infiltrate. The kaushal ent's electrocardiogram was ventricular paced at a rate of 70. The patient required BiPAP and has b een admitted to the ICU where she remains at this time. The patient denies chest pain, has mild arabella rtness of breath. PAST MEDICAL HISTORY: As above in HPI. MEDICATIONS CURRENTLY IN HOSPITAL: 1. Gentamicin. 2. Aspirin 81 mg daily. 3. Protonix 40 mg IV daily. 4. Xopenex. 5 Vancomycin. ALLERGIES: TYLENOL, CIPROFLOXACIN, HEPARIN, LEVOFLOXACIN, POTASSIUM. SOCIAL HISTORY: No tobacco, ETOH or illicit drug use. FAMILY HISTORY: No history of sudden cardiac or early CAD. REVIEW OF SYSTEMS: As above in HPI. CONSTITUTIONAL: No fevers, chills. PULMONARY: Respiratory distress. CARDIOVASCULAR: Positive troponin. GASTROINTESTINAL: No vomiting. GENITOURINARY: No hematuria. Positive end-stage renal disease. PSYCHIATRIC: No documented psychiatric history. NEUROLOGIC: No documented history of CVA. ENDOCRINE: No documented history of diabetes mellitus. PHYSICAL EXAMINATION: VITAL SIGNS: Temperature of 99.5, blood pressure most recently 118/72, pulse 70, respiratory rate 2 1, saturating 98% on 2 liters. GENERAL: The patient is alert, awake, in no acute distress. NECK: JVP approximately 9 to 10 cm water. CHEST: Upper airway sounds are rhonchorous sounds and bibasilar crackles. Left upper chest pacer p ocket clean, dry and intact. ABDOMEN: Positive bowel sounds, soft. EXTREMITIES: Trace edema, 1+ pulses bilaterally posterior tibial. LABORATORIES: As above in HPI, with most recently from today, sodium 138, potassium 3.9, creatinine of 1.6, BUN 13, lactic acid 16.8, AST 1041, ALT 68. Troponin mild trend up from 0.697 to 0.922. W abelino blood cell count 9.5, hemoglobin of 9.4, platelet count of 57. IMAGING STUDIES: As above in HPI. No further imaging studies for my review at this time. ECG: As above in HPI. No further electrocardiograms for my review at this time. IMPRESSION: 1. Positive troponin, assess significance in the setting of renal failure, respiratory distress. 2. Permanent pacemaker, assess function. 3. Hypertension, borderline. 4. Respiratory distress. 5. End-stage renal disease on hemodialysis. 6. Anemia. 7. Thrombocytopenia. 8. Increased liver function tests. 9. Anemia. RECOMMENDATIONS: 1. At this time, would maintain patient on telemetry monitoring to follow rhythm and rate control c losely. 2. Continue the patient's aspirin as tolerated only following platelet count closely and if continu es to fall, would likely hold aspirin so as to decrease bleeding complications. 3. Continue to trend the patient's cardiac enzymes to assess for any significant ongoing cardiac da mage. 4. Check a 2D echocardiogram to further assess the patient's ejection fraction, wall motion and any major valve abnormalities. 5. We will consider low-dose beta alisha in the setting of positive troponins. We will watch at t his time as patient is continuously pacing. 6. We will additionally check a fasting lipid panel for general risk stratification and initiate li pid-lowering medication as necessary once the patient's LFTs have improved. 7. Further workup and treatment of patient's ongoing clinical issues including increased LFTs, feve rs per PMD and alternative consultations. 8. Hemodialysis for volume removal. Thank you for allowing me to take part in the care of this patient. I will continue to follow along very closely with you. Further recommendations will be made as the patient progresses through her inpatient hospital clinical course. Dictated By: HOOD DIAMOND/HEIDE Conf#: [id number] DID#: [id number] CC: GAGE GOLDMAN MD;*EndCC*
--- NOTE | 2016-03-14 15:25 | PN ---
Date/Time of Note Date/Time of Note DATE: 03/14/16 TIME: 15:12 Assessment/Plan VTE Prophylaxis VTE Prophylaxis Intervention: contraindicated VTE Contraindication Reason: thrombocytopenia Lines/Catheters [facility] Central Line Central line still needed: Yes Urinary Cath still in place: No Assessment/Plan Chief Complaint/Hosp Course ASSESSMENT AND PLAN: 1. Multilobar pneumonia. Continue vancomycin and Zosyn. Dr. Glover is following an infection disease consultation. 2. Influenza A, continue Tamiflu. 3. Acute respiratory distress, resolving. Continue oxygen supplementation and bronchodilators. Dr. Reed to see patient in pulmonology consultation. 2. End-stage renal disease, hemodialysis dependent. Dr. Lake is following patient in nephrology consultation. 3. Positive troponin. Dr Red is following in cardiology consultation. Continue aspirin. 4. Permanent pacemaker. 5. Hypertension, currently patient is normotensive. 6. Anemia of chronic disease. 7. Legally blind. 8. Thrombocytopenia. 9. Pulmonary edema. Continue remove fluids with hemodialysis. Continue Protonix for peptic ulcer disease prophylaxis. Further recommendations based on clinical course. Plan of care discussed with Dr. Goldman. Problems: Subjective 24 Hr Interval Summary Free Text/Dictation Patient with adequate oxygen saturation on oxygen via nasal cannula, awake alert , still some sounds congested, denies any chest pain. Paced rhythm on telemetry. Exam/Review of Systems Vital Signs Vitals Vital Signs Date Time Temp Pulse Resp B/P Pulse Ox O2 Delivery O2 Flow Rate FiO2 03/14/16 12:11 70 03/14/16 11:36 97.8 20 124/76 98 03/14/16 09:30 Nasal Cannula 1.0 03/13/16 23:09 40 Intake and Output 03/13/16 03/13/16 03/14/16 15:00 23:00 07:00 Intake Total 550 ml Output Total 5320 ml Balance -4770 ml Exam GENERAL: This is a well-developed, cachectic female, awake, alert. HEENT: The patient is legally blind. Oral mucosa is pink and moist. NECK: Supple. No cervical lymphadenopathy. LUNGS: With scattered rhonchi, diminished at the bases. CARDIOVASCULAR: Normal S1, S2. No murmurs, gallops, clicks, rubs noted. ABDOMEN: Flat, soft, nondistended, nontender. Bowel sounds present. No guarding, no tenderness. EXTREMITIES: With prominent muscle wasting. Right upper extremity with AV fistula. No cyanosis noted. Pulses equal bilaterally 2+. SKIN: There is no rash noted. NEUROLOGIC: The patient is awake, alert, and oriented to name and situation. No focal deficits noted. Results Result Diagram: 03/14/16 0500 03/14/16 0500 Results 24 hrs Laboratory Tests Test 03/13/16 15:42 03/13/16 19:57 03/13/16 20:32 03/13/16 21:22 Lactic Acid Level 17.8 *H Bedside Glucose 31 *L 310 H 231 H Test 03/14/16 01:02 03/14/16 05:00 03/14/16 06:22 03/14/16 11:15 Creatine Kinase 485 H 787 #H 1904 #H Creatine Kinase Index 3.4 2.6 1.8 Creatinine Kinase MB (Mass) 16.60 H 20.30 H 33.90 H Troponin I 0.697 *H 0.922 *H 2.170 *H Alanine Aminotransferase (ALT/SGPT) 638 H Albumin 3.8 Albumin/Globulin Ratio 1.52 Alkaline Phosphatase 174 H Anion Gap 34 H Aspartate Amino Transf (AST/SGOT) 1041 H Basophils # 0.0 Basophils % 0.0 Blood Morphology Comment Blood Urea Nitrogen 13 Calcium Level 8.1 L Carbon Dioxide Level 19 L Chloride Level 89 L Creatinine 1.60 #H Direct Bilirubin 0.00 Eosinophils # 0.0 Eosinophils % 0.0 Globulin 2.50 Glucose Level 65 #L Hematocrit 27.4 L Hemoglobin 9.4 L Hemoglobin A1c 4.7 Indirect Bilirubin 1.1 Lactic Acid Level 16.8 *H Lymphocytes # 0.5 L Lymphocytes % 5.1 L Mean Corpuscular Hemoglobin 34.8 H Mean Corpuscular Hemoglobin Concent 34.1 Mean Corpuscular Volume 102.3 H Mean Platelet Volume 8.6 Monocytes # 0.5 Monocytes % 4.9 Neutrophils # 8.6 H Neutrophils % 90.0 H Nucleated Red Blood Cells # 0.0 Nucleated Red Blood Cells % 0.0 Platelet Count 57 #L Potassium Level 3.9 Red Blood Count 2.68 L Red Cell Distribution Width 18.0 H Sodium Level 138 Total Bilirubin 1.1 Total Protein 6.3 # White Blood Count 9.5 Bedside Glucose 72 Medications Medications Current Medications Pantoprazole (Protonix Iv) 40 mg DAILY@06 IV Last administered on 03/14/16 05: 25; Admin Dose 40 MG; Start 03/14/16 at 06:00 Miscellaneous Information (*Rx Drug Level Order Reminder*) VANCO RANDOM LEVEL... ONCE ONCE XX ; Start 03/15/16 at 05:00; Stop 03/15/16 at 05:01 Aspirin 81 mg 81 mg DAILY PO Last administered on 03/14/16 09:11; Admin Dose 81 MG; Start 03/14/16 at 09:00 Piperacillin Sod/ Tazobactam Sod (Zosyn 2.25gm/ 50ml (Pmx)) 50 ml @ 100 mls/hr Q12 IVPB ; Start 03/14/16 at 21:00 BRENNA JENSEN Mar 14, 2016 15:23
[2016-03-14] MEDS ORDERED: VANCOMYCIN IV PER PHARMACY XX SCH (19:00)
--- NOTE | 2016-03-14 21:18 | CONS ---
Date/Time of Note Date/Time of Note DATE: 03/14/16 TIME: 21:17 Assessment/Plan Assessment/Plan Chief Complaint/Hosp Course pul edema esrd pneumonia anemia plan hd Problems: Consultation Date/Type/Reason Admit Date/Time Mar 13, 2016 at 13:38 Initial Consult Date 03/14/16 Type of Consultation: renal Referring Provider: BRENNA JENSEN 24 HR Interval Summary Subjective hx not possible: other (sob better) Exam/Review of Systems Vital Signs Vitals Vital Signs Date Time Temp Pulse Resp B/P Pulse Ox O2 Delivery O2 Flow Rate FiO2 03/14/16 21:00 70 03/14/16 20:33 101.0 18 127/77 98 03/14/16 20:26 4.0 03/14/16 18:12 36 03/14/16 09:30 Nasal Cannula Intake and Output 03/13/16 03/13/16 03/14/16 14:59 22:59 06:59 Intake Total 550 ml Output Total 5320 ml Balance -4770 ml Exam Neck: supple Respiratory: diminished breath sounds Cardiovascular: regular rate and rhythm Gastrointestinal: soft Musculoskeletal: nl extremities to inspection Results Result Diagram: 03/14/16 0500 03/14/16 0500 Results 24 hrs Laboratory Tests Test 03/13/16 21:22 03/14/16 01:02 03/14/16 05:00 03/14/16 06:22 Bedside Glucose 231 H 72 Creatine Kinase 485 H 787 #H Creatine Kinase Index 3.4 2.6 Creatinine Kinase MB (Mass) 16.60 H 20.30 H Troponin I 0.697 *H 0.922 *H Alanine Aminotransferase (ALT/SGPT) 638 H Albumin 3.8 Albumin/Globulin Ratio 1.52 Alkaline Phosphatase 174 H Anion Gap 34 H Aspartate Amino Transf (AST/SGOT) 1041 H Basophils # 0.0 Basophils % 0.0 Blood Morphology Comment Blood Urea Nitrogen 13 Calcium Level 8.1 L Carbon Dioxide Level 19 L Chloride Level 89 L Creatinine 1.60 #H Direct Bilirubin 0.00 Eosinophils # 0.0 Eosinophils % 0.0 Globulin 2.50 Glucose Level 65 #L Hematocrit 27.4 L Hemoglobin 9.4 L Hemoglobin A1c 4.7 Indirect Bilirubin 1.1 Lactic Acid Level 16.8 *H Lymphocytes # 0.5 L Lymphocytes % 5.1 L Mean Corpuscular Hemoglobin 34.8 H Mean Corpuscular Hemoglobin Concent 34.1 Mean Corpuscular Volume 102.3 H Mean Platelet Volume 8.6 Monocytes # 0.5 Monocytes % 4.9 Neutrophils # 8.6 H Neutrophils % 90.0 H Nucleated Red Blood Cells # 0.0 Nucleated Red Blood Cells % 0.0 Platelet Count 57 #L Potassium Level 3.9 Red Blood Count 2.68 L Red Cell Distribution Width 18.0 H Sodium Level 138 Total Bilirubin 1.1 Total Protein 6.3 # White Blood Count 9.5 Test 03/14/16 11:15 Creatine Kinase 1904 #H Creatine Kinase Index 1.8 Creatinine Kinase MB (Mass) 33.90 H Troponin I 2.170 *H Medications Medications Current Medications Pantoprazole (Protonix Iv) 40 mg DAILY@06 IV Last administered on 03/14/16 05: 25; Admin Dose 40 MG; Start 03/14/16 at 06:00 Miscellaneous Information (*Rx Drug Level Order Reminder*) VANCO RANDOM LEVEL... ONCE ONCE XX ; Start 03/15/16 at 05:00; Stop 03/15/16 at 05:01 Aspirin 81 mg 81 mg DAILY PO Last administered on 03/14/16 09:11; Admin Dose 81 MG; Start 03/14/16 at 09:00 Piperacillin Sod/ Tazobactam Sod (Zosyn 2.25gm/ 50ml (Pmx)) 50 ml @ 100 mls/hr Q12 IVPB ; Start 03/14/16 at 21:00 DALLAS CABRAL MD Mar 14, 2016 21:18
[2016-03-14] MEDS: PIPER-TAZO 2.25 GM (PMX) 50 ML IVPB SCH (22:25)
[2016-03-15] VITALS (20 sets, daily range): BP systolic 91–135; BP diastolic 52–68; PULSE 68–80; RESP 16–20
[2016-03-15] MEDS: LEVALBUTEROL (NEB) 0.63 MG/3 ML AMP HHN SCH ×4 (02:49→20:00)
[2016-03-15] MEDS: PANTOPRAZOLE 40 MG INJ IV SCH (05:47)
[2016-03-15] MEDS: OSELTAMIVIR 30 MG CAP PO SCH ×2 (06:21→21:43)
[2016-03-15 06:34] LABS: HAAIG REFLEX REFLEX FILED
[2016-03-15 07:02] LABS: CHOL/HDL RATIO 1.7 RATIO
[2016-03-15 07:25] LABS: ALBUMIN 3.3 g/dl (3.3-4.9); POTASSIUM 3.6 mmol/L (3.5-5.1)
[2016-03-15 07:27] LABS: CREATININE 2.06 mg/dl (0.44-1.00)
[2016-03-15 07:28] LABS: ALBUMIN/GLOBULIN RATIO 1.1; BILIRUBIN,INDIRECT 1.2 mg/dl (0-1.1); BILIRUBIN,TOTAL 1.2 mg/dl (0.2-1.3); TOTAL PROTEIN 6.3 g/dl (6.1-8.1)
[2016-03-15 07:29] LABS: CALCIUM 7.8 mg/dl (8.4-10.2)
[2016-03-15 07:44] LABS: HEPATITIS B CORE ANTIBODY NEGATIVE (NEGATIVE)
[2016-03-15] MEDS: ASPIRIN 81 MG TAB PO SCH (09:18)
[2016-03-15] MEDS: PIPER-TAZO 2.25 GM (PMX) 50 ML IVPB SCH ×2 (09:18→21:42)
--- NOTE | 2016-03-15 11:03 | RADRPT ---
Vent Rate: 70 bpm RR Interval: 0 msec HI Interval: 0 msec QRS Duration: 158 msec QT Interval: 574 msec QTC Interval: 619 msec P-R-T [place]: 0 - -79 - 94 degrees Electronic ventricular pacemaker Electronically Signed By: Torres Augustine [id number]
--- NOTE | 2016-03-15 12:55 | CONS ---
Date/Time of Note Date/Time of Note DATE: 03/15/16 TIME: 12:50 Assessment/Plan Assessment/Plan Chief Complaint/Hosp Course IMPRESSION: 1. Positive troponin, assess significance in the setting of renal failure, respiratory distress.-has uptrended. POssibly demand in the setting 2. Permanent pacemaker, assess function. 3. Hypertension, borderline. 4. Respiratory distress. 5. End-stage renal disease on hemodialysis. 6. Anemia. 7. Thrombocytopenia. 8. Increased liver function tests. 9. Anemia. Recc: -Terle -serial ecg's -Continue asa -Consider low dose heparin -Will add low dose BB as tolerated to reduce demand -Lexiscan stress test when stable off of precautions -HD for volume removal -Continue tamiflu/bronchodilators Problems: Consultation Date/Type/Reason Admit Date/Time Mar 13, 2016 at 13:38 Initial Consult Date 03/14/16 Type of Consultation: Cardiology Reason for Consultation positive troponin/nstemi Referring Provider: BRENNA JENSEN Exam/Review of Systems Vital Signs Vitals Vital Signs Date Time Temp Pulse Resp B/P Pulse Ox O2 Delivery O2 Flow Rate FiO2 03/15/16 12:47 70 03/15/16 11:41 97.6 20 135/59 100 03/15/16 08:10 Nasal Cannula 2.0 03/14/16 18:12 36 Intake and Output 03/14/16 03/14/16 03/15/16 14:59 22:59 06:59 Intake Total 860 ml 290 ml Output Total 2485 ml 1105 ml Balance -1625 ml -815 ml Exam Review of Systems: CONSTITUTIONAL: No fevers, chills. PULMONARY: mild sob CARDIOVASCULAR: No chest pain/palpitations GASTROINTESTINAL: No nausea/vomiting. GENITOURINARY: No hematuria/dysuria. MUSCULOSKELETAL: No myagias/arthalgias. PSYCHIATRIC: The patient denies depression. NEUROLOGIC: No weakness Constitutional: alert Psych: no complaints Head: normocephalic ENMT: mucosa pink and moist Neck: jvd (8 cm water), supple Respiratory: diminished breath sounds (at bases/B) Cardiovascular: regular rate and rhythm Gastrointestinal: non-tender, soft Musculoskeletal: muscle tone (normal) Extremities: edema (none) Neurological: other (No focal deficits) Results Result Diagram: 03/14/16 0500 03/15/16 0605 Results 24 hrs Laboratory Tests Test 03/15/16 06:05 Alanine Aminotransferase (ALT/SGPT) 1178 H Albumin 3.3 Albumin/Globulin Ratio 1.10 Alkaline Phosphatase 160 H Anion Gap 22 #H Aspartate Amino Transf (AST/SGOT) Blood Urea Nitrogen 25 #H Calcium Level 7.8 L Carbon Dioxide Level 27 Chloride Level 94 L Cholesterol Level 68 L Cholesterol/HDL Ratio 1.7 Creatinine 2.06 H Direct Bilirubin 0.00 Globulin 3.00 Glucose Level 71 HDL Cholesterol 38 HIV (1&2) Antibody NEGATIVE Hepatitis B Core Total Antibody NEGATIVE Hepatitis B Surface Antigen NEGATIVE Hepatitis C Antibody NEGATIVE Indirect Bilirubin 1.2 H LDL Cholesterol, Calculated 4 Lactic Acid Level 4.9 *H Lipase 868 H Potassium Level 3.6 Random Vancomycin Level < 5.0 Serum HCG, Qualitative NEGATIVE Sodium Level 139 Total Bilirubin 1.2 Total Protein 6.3 Triglycerides Level 129 Medications Medications Current Medications Pantoprazole (Protonix Iv) 40 mg DAILY@06 IV Last administered on 03/15/16 05: 47; Admin Dose 40 MG; Start 03/14/16 at 06:00 Aspirin 81 mg 81 mg DAILY PO Last administered on 03/15/16 09:18; Admin Dose 81 MG; Start 03/14/16 at 09:00 Piperacillin Sod/ Tazobactam Sod 50 ml @ 100 mls/hr Q12 IVPB Last administered on 03/15/16 09:18; Admin Dose 100 MLS/HR; Start 03/14/16 at 21:00 Vancomycin HCl/ Sodium Chloride (Vancocin/NS) 150 ml @ 75 mls/hr ONCE IVPB ; Start 03/15/16 at 13:00; Stop 03/15/16 at 14:00 HOOD CANALES Mar 15, 2016 12:55
[2016-03-15] MEDS ORDERED: VANCOMYCIN 750 MG in SOD CHLORIDE 0.9% 150 ML IVPB SCH (13:00)
[2016-03-15 13:14] LABS: ALBUMIN 3.2 g/dl (3.3-4.9)
[2016-03-15 13:17] LABS: TOTAL PROTEIN 5.9 g/dl (6.1-8.1)
--- NOTE | 2016-03-15 13:42 | RADRPT ---
Echocardiogram Report Patient Name: JOSEPH LIZAMA Gender: Female Date: 1990 Study Date: 14-Mar-2016 Classroom Instructor: Mateo [facility] Location: [id number] Ref. Physician: GAGE TAMAYO Quality: Technically Difficult Study Procedures: Transthoracic echocardiogram with complete 2D, M-Mode, and doppler examination. Indications: Elevated Troponin. 2D/M Mode Doppler Measurement Value Normal Ranges Measurement Value Normal Ranges LVIDd 2D 5.6 3.5 - 5.6 cm JANIE Vmax 1.0 cm2 LVIDs 2D 3.7 2.1 - 4.1 cm JANIE VTI 1.2 cm2 FS 2D 34.3 % AV Mean Wesly 1.6 m/sec LVPWd 2D 1.1 0.6 - 1.1 cm AV Mean PG 13.0 mmHg IVSd 2D 0.8 0.6 - 1.1 cm AV Peak Wesly 2.8 m/sec IVS/LVPW 2D 0.8 AV Peak PG 32.0 mmHg AoR Diam 2D 1.4 2.0 - 3.7 cm AV VTI 33.3 cm LA/Ao 2D 3 0 - 1 LVOT Mean Wesly 0.7 m/sec EDV 2D 178.0 cm3 LVOT Mean PG 3.0 mmHg ESV 2D 50.2 cm3 LVOT Peak Wesly 1.1 m/sec LA Dimen 2D 3.6 2.3 - 4.0 cm LVOT Peak PG 5.0 mmHg LVOT Diam 1.8 cm LVOT VTI 15.4 cm LVOT Area 2.5 cm2 MV E Peak Wesly 1.2 m/sec MV A Peak Wesly 0.4 m/sec MV E/A 3.4 MV Decel Time 190 msec MV E/A 3.4 TR Peak Wesly 4.0 m/sec TR Peak PG 63.0 mmHg PV Accel Time 85 msec RVSP 71.0 mmHg Findings Left Ventricle: Normal left ventricular cavity size. Left ventricular wall thickness upper limits of normal. Mild global left ventricular systolic dysfunction. Ejection fraction is visually estimated at 45 %. Tissue Doppler/Mitral Doppler indices are consistent with restrictive physiology with markedly elevated left atrial pressure (Stage IIIIV diastolic dysfunction). These segments of the LV are hypokinetic inferior mid segment and mid anterior segment. Right Ventricle: Mild right ventricular systolic dysfunction. Mild enlargement of right ventricle. Mild right ventricular hypokinesis. Pacemaker right heart. Left Atrium: The left atrium is normal in size. Right Atrium: There is mild enlargement of right atrium. Mitral Valve: Mild mitral leaflet calcification. Mild mitral annular calcification. Trace mitral regurgitation. Aortic Valve: Aortic cusps appear mildly calcified. Trace aortic valve regurgitation. Tricuspid Valve: Estimated peak PA systolic pressure 71 mmHg. There is moderate to severe tricuspid regurgitation. Pulmonic Valve: There is mild pulmonic regurgitation. Pericardium: Normal pericardium with no significant pericardial effusion. Aorta: Normal aortic root. IVC: Normal size and no respiratory collapse consistent with elevated right atrial pressure. Conclusions 1.Normal left ventricular cavity size. Left ventricular wall thickness upper limits of normal. Mild global left ventricular systolic dysfunction. Ejection fraction is visually estimated at 45 %. Tissue Doppler/Mitral Doppler indices are consistent with restrictive physiology with markedly elevated left atrial pressure (Stage III-IV diastolic dysfunction). These segments of the LV are hypokinetic inferior mid segment and mid anterior segment. 2.Mild right ventricular systolic dysfunction. Mild enlargement of right ventricle. Mild right ventricular hypokinesis. Pacemaker right heart. 3.There is mild enlargement of right atrium. 4.Trace mitral regurgitation. 5.Trace aortic valve regurgitation. 6.Estimated peak PA systolic pressure 71 mmHg. There is moderate to severe tricuspid regurgitation. 7.There is mild pulmonic regurgitation. Electronically Signed By: Joshua Red 15-Mar-2016 13:42:10 -0800 Patient Name: JOSEPH LIZAMA Study Date: 14-Mar-[id number]
[2016-03-15] MEDS: METOPROLOL 25 MG TAB PO SCH ×2 (14:27→21:43)
--- NOTE | 2016-03-15 15:09 | PN ---
Date/Time of Note Date/Time of Note DATE: 03/15/16 TIME: 14:56 Assessment/Plan VTE Prophylaxis VTE Prophylaxis Intervention: heparin, other Lines/Catheters IV C[facility] Type ([facility] Central Line Urinary Cath still in place: No Assessment/Plan Assessment/Plan 1. Multilobar pneumonia. - pet Dr. Glover- infection disease consultation. - Continue vancomycin and Zosyn. 2. Influenza A, continue Tamiflu. - droplet precautions 3. Acute respiratory distress, resolving. Continue oxygen supplementation and bronchodilators. - per Dr. Reed in pulmonology consultation. 2. End-stage renal disease, hemodialysis dependent. - per Dr. Lake in nephrology consultation. - HD today 3. Positive troponin. - per Dr Red in cardiology consultation. - Continue aspirin. 4. Permanent pacemaker. 5. Hypertension, currently patient is normotensive. 6. Anemia of chronic disease. 7. Legally blind. 8. Thrombocytopenia. - Hematology consult appreciated- notified 9. Pulmonary edema. Continue remove fluids with hemodialysis. 10. Elevated Liver Functions - GI consult appreciated- Dr Herrera notified Continue Protonix for peptic ulcer disease prophylaxis. Further recommendations based on clinical course. Plan of care discussed with Dr. Goldman. Subjective 24 Hr Interval Summary Free Text/Dictation NAD. resting. seems comfortable. Family at bed side. all qs answered. dw staff. Eyes: no complaints ENT: no complaints Respiratory: no complaints Cardiovascular: no complaints Gastrointestinal: no complaints Genitourinary: no complaints Musculoskeletal: no complaints Skin: no complaints Neurologic: no complaints Exam/Review of Systems Vital Signs Vitals Vital Signs Date Time Temp Pulse Resp B/P Pulse Ox O2 Delivery O2 Flow Rate FiO2 03/15/16 14:29 4.0 03/15/16 14:29 72 20 95 Nasal Cannula 03/15/16 11:41 97.6 135/59 03/14/16 18:12 36 Intake and Output 03/14/16 03/14/16 03/15/16 15:00 23:00 07:00 Intake Total 860 ml 290 ml Output Total 2485 ml 1105 ml Balance -1625 ml -815 ml Exam Constitutional: alert Psych: nl mood/affect Head: atraumatic Eyes: EOMI, PERRL, nl sclera ENMT: nl external ears & nose Neck: non-tender Respiratory: clear to auscultation Cardiovascular: nl pulses Gastrointestinal: soft, tender (slight diffuse ) Musculoskeletal: nl extremities to inspection Extremities: normal pulses Neurological: nl speech, other Lymph: nontender Results Result Diagram: 03/14/16 0500 03/15/16 0605 Results 24 hrs Laboratory Tests Test 03/15/16 06:05 Alanine Aminotransferase (ALT/SGPT) 1284 H Albumin 3.2 L Albumin/Globulin Ratio 1.10 Alkaline Phosphatase 150 H Anion Gap 22 #H Aspartate Amino Transf (AST/SGOT) 1789 H Blood Urea Nitrogen 25 #H Calcium Level 7.8 L Carbon Dioxide Level 27 Chloride Level 94 L Cholesterol Level 68 L Cholesterol/HDL Ratio 1.7 Creatinine 2.06 H Direct Bilirubin 0.00 Globulin 3.00 Glucose Level 71 HDL Cholesterol 38 HIV (1&2) Antibody NEGATIVE Hepatitis B Core Total Antibody NEGATIVE Hepatitis B Surface Antigen NEGATIVE Hepatitis C Antibody NEGATIVE Indirect Bilirubin 1.0 LDL Cholesterol, Calculated 4 Lactic Acid Level 4.9 *H Lipase 868 H Potassium Level 3.6 Random Vancomycin Level < 5.0 Serum HCG, Qualitative NEGATIVE Sodium Level 139 Total Bilirubin 1.0 Total Protein 5.9 L Triglycerides Level 129 Medications Medications Current Medications Pantoprazole (Protonix Iv) 40 mg DAILY@06 IV Last administered on 03/15/16 05: 47; Admin Dose 40 MG; Start 03/14/16 at 06:00 Aspirin 81 mg 81 mg DAILY PO Last administered on 03/15/16 09:18; Admin Dose 81 MG; Start 03/14/16 at 09:00 Piperacillin Sod/ Tazobactam Sod (Zosyn 2.25gm/ 50ml (Pmx)) 50 ml @ 100 mls/hr Q12 IVPB Last administered on 03/15/16 09:18; Admin Dose 100 MLS/HR; Start 01/18 at 21:00 Metoprolol Tartrate (Lopressor) 25 mg BID PO Last administered on 03/15/16 14: 27; Admin Dose 25 MG; Start 03/15/16 at 14:00 MADY CAMP Mar 15, 2016 15:06
--- NOTE | 2016-03-15 16:11 | CONS ---
Date/Time of Note Date/Time of Note DATE: 03/15/16 TIME: 16:10 Assessment/Plan Assessment/Plan Chief Complaint/Hosp Course IMPRESSION: 1. Patient has acute hypoxic respiratory failure, lung infiltrate. 2. Pulmonary edema, rule out ischemic heart disease. 3. End-stage renal disease. 4. Hypertension. 5. Anemia. 6. Retinitis pigmentosa. 7. Lactic acidosis. 8. Positive troponin. plan hd Problems: Consultation Date/Type/Reason Admit Date/Time Mar 13, 2016 at 13:38 Initial Consult Date 03/14/16 Type of Consultation: renal Referring Provider: BRENNA JENSEN 24 HR Interval Summary Constitutional: no complaints Exam/Review of Systems Vital Signs Vitals Vital Signs Date Time Temp Pulse Resp B/P Pulse Ox O2 Delivery O2 Flow Rate FiO2 03/15/16 14:29 4.0 03/15/16 14:29 72 20 95 Nasal Cannula 03/15/16 11:41 97.6 135/59 03/14/16 18:12 36 Intake and Output 03/14/16 03/14/16 03/15/16 15:00 23:00 07:00 Intake Total 860 ml 290 ml Output Total 2485 ml 1105 ml Balance -1625 ml -815 ml Exam Neck: supple Respiratory: clear to auscultation Cardiovascular: regular rate and rhythm Gastrointestinal: bowel sounds (+), soft Extremities: No edema Results Result Diagram: 03/14/16 0500 03/15/16 0605 Results 24 hrs Laboratory Tests Test 03/15/16 06:05 Alanine Aminotransferase (ALT/SGPT) 1284 H Albumin 3.2 L Albumin/Globulin Ratio 1.10 Alkaline Phosphatase 150 H Anion Gap 22 #H Aspartate Amino Transf (AST/SGOT) 1789 H Blood Urea Nitrogen 25 #H Calcium Level 7.8 L Carbon Dioxide Level 27 Chloride Level 94 L Cholesterol Level 68 L Cholesterol/HDL Ratio 1.7 Creatinine 2.06 H Direct Bilirubin 0.00 Globulin 3.00 Glucose Level 71 HDL Cholesterol 38 HIV (1&2) Antibody NEGATIVE Hepatitis B Core Total Antibody NEGATIVE Hepatitis B Surface Antigen NEGATIVE Hepatitis C Antibody NEGATIVE Indirect Bilirubin 1.0 LDL Cholesterol, Calculated 4 Lactic Acid Level 4.9 *H Lipase 868 H Potassium Level 3.6 Random Vancomycin Level < 5.0 Serum HCG, Qualitative NEGATIVE Sodium Level 139 Total Bilirubin 1.0 Total Protein 5.9 L Triglycerides Level 129 Medications Medications Current Medications Pantoprazole (Protonix Iv) 40 mg DAILY@06 IV Last administered on 03/15/16 05: 47; Admin Dose 40 MG; Start 03/14/16 at 06:00 Aspirin 81 mg 81 mg DAILY PO Last administered on 03/15/16 09:18; Admin Dose 81 MG; Start 03/14/16 at 09:00 Piperacillin Sod/ Tazobactam Sod (Zosyn 2.25gm/ 50ml (Pmx)) 50 ml @ 100 mls/hr Q12 IVPB Last administered on 03/15/16 09:18; Admin Dose 100 MLS/HR; Start 01/18 at 21:00 Metoprolol Tartrate (Lopressor) 25 mg BID PO Last administered on 03/15/16 14: 27; Admin Dose 25 MG; Start 03/15/16 at 14:00 Influenza Virus Vaccine (Fluzone) 0.5 ml ONCE ONCE IM* ; Start 03/16/16 at 09:00 ; Stop 03/16/16 at 09:01 DALLAS CABRAL MD Mar 15, 2016 16:10
--- NOTE | 2016-03-15 16:26 | CONS ---
Date/Time of Note Date/Time of Note DATE: 03/15/16 TIME: 16:23 Assessment/Plan Assessment/Plan Additional Assessment/Plan assessment/impression - influenza A bronchitis - possibly concurrent HCAP, multi-lobar - pulmonary edema - lactic acidosis - transaminitis, possibly shock liver - ESRD on HD via AVG on RUE, being worked up for renal transplant at [facility] - anemia - b/l blindness from retinitis pigmentosa. - positive troponin on admission, CAD, +pacemaker recommendations - pip/tazo and oseltamivir - probiotics - consider gi eval for transaminitis Consultation Date/Type/Reason Admit Date/Time Mar 13, 2016 at 13:38 Initial Consult Date 03/14/16 Type of Consultation: id Referring Provider: BRENNA JENSEN 24 HR Interval Summary Free Text/Dictation improving. transferred to floor Exam/Review of Systems Vital Signs Vitals Vital Signs Date Time Temp Pulse Resp B/P Pulse Ox O2 Delivery O2 Flow Rate FiO2 03/15/16 15:30 97.5 70 20 91/55 100 03/15/16 14:29 4.0 03/15/16 14:29 Nasal Cannula 03/14/16 18:12 36 Intake and Output 03/14/16 03/14/16 03/15/16 15:00 23:00 07:00 Intake Total 860 ml 290 ml Output Total 2485 ml 1105 ml Balance -1625 ml -815 ml Exam Constitutional: alert, oriented, well developed Psych: nl mood/affect, no complaints Head: atraumatic, normocephalic Eyes: EOMI, PERRL, nl conjunctiva, nl lids, nl sclera Neck: non-tender, supple Respiratory: clear to auscultation, normal air movement Cardiovascular: nl pulses, regular rate and rhythm Gastrointestinal: nl liver, spleen, non-tender, soft Results Result Diagram: 03/14/16 0500 03/15/16 0605 Results 24 hrs Laboratory Tests Test 03/15/16 06:05 Alanine Aminotransferase (ALT/SGPT) 1284 H Albumin 3.2 L Albumin/Globulin Ratio 1.10 Alkaline Phosphatase 150 H Anion Gap 22 #H Aspartate Amino Transf (AST/SGOT) 1789 H Blood Urea Nitrogen 25 #H Calcium Level 7.8 L Carbon Dioxide Level 27 Chloride Level 94 L Cholesterol Level 68 L Cholesterol/HDL Ratio 1.7 Creatinine 2.06 H Direct Bilirubin 0.00 Globulin 3.00 Glucose Level 71 HDL Cholesterol 38 HIV (1&2) Antibody NEGATIVE Hepatitis B Core Total Antibody NEGATIVE Hepatitis B Surface Antigen NEGATIVE Hepatitis C Antibody NEGATIVE Indirect Bilirubin 1.0 LDL Cholesterol, Calculated 4 Lactic Acid Level 4.9 *H Lipase 868 H Potassium Level 3.6 Random Vancomycin Level < 5.0 Serum HCG, Qualitative NEGATIVE Sodium Level 139 Total Bilirubin 1.0 Total Protein 5.9 L Triglycerides Level 129 Medications Medications Current Medications Pantoprazole (Protonix Iv) 40 mg DAILY@06 IV Last administered on 03/15/16 05: 47; Admin Dose 40 MG; Start 03/14/16 at 06:00 Aspirin 81 mg 81 mg DAILY PO Last administered on 03/15/16 09:18; Admin Dose 81 MG; Start 03/14/16 at 09:00 Piperacillin Sod/ Tazobactam Sod (Zosyn 2.25gm/ 50ml (Pmx)) 50 ml @ 100 mls/hr Q12 IVPB Last administered on 03/15/16 09:18; Admin Dose 100 MLS/HR; Start 01/18 at 21:00 Metoprolol Tartrate (Lopressor) 25 mg BID PO Last administered on 03/15/16 14: 27; Admin Dose 25 MG; Start 03/15/16 at 14:00 Influenza Virus Vaccine (Fluzone) 0.5 ml ONCE ONCE IM* ; Start 03/16/16 at 09:00 ; Stop 03/16/16 at 09:01 NAVEEN XIE MD Mar 15, 2016 16:26
--- NOTE | 2016-03-15 16:42 | CONS ---
Date/Time of Note Date/Time of Note DATE: 03/15/16 TIME: 16:37 Assessment/Plan Assessment/Plan Chief Complaint/Hosp Course The patient is a 25 year old female with past medical history of end-stage renal disease, hemodialysis-dependent, legal blindness, with multilobar pneumonia with lactic acid 16.2, on vancomycin and zosyn, as well as influenza A , with thrombocytopenia. Thrombocytopenia likely related to sepsis and/or DIC, as well as possible contribution from both vancomycin and zosyn. - DIC panel ordered. HIV, Hep B/C neg. - Peripheral smear with path review ordered - Will continue to follow counts. Consider switching antibiotics if platelets continue to decline. Will continue to follow. Problems: Consultation Date/Type/Reason Admit Date/Time Mar 13, 2016 at 13:38 Date of Consultation: Mar 15, 2016 Type of Consultation: Hematology/Oncology Hx of Present Illness The patient is a 25 year old female with past medical history of end-stage renal disease, hemodialysis-dependent, legal blindness, who developed a cough and fever and was evaluated in the dialysis center for fever. Patient was given vancomycin with hemodialysis and upon returning home, had increased shortness of breath and presented to the ER. She was found to have multilobar pneumonia with lactic acid 16.2, on vancomycin and zosyn, as well as influenza A. She feels better than on admission she states, though still has a cough. She has no prior history of thrombocytopenia per family. 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 Medical History: coronary artery disease (+pacemaker), renal disease, other ( ESRD on HD via AVG on RUE, blind) Past Surgical History Status post AV fistula recreation the right upper extremity, status post permanent pacemaker insertion 3 years ago and is status post battery change and pacemaker 1 year ago. Family History Significant Family History: no pertinent family hx Social History The patient lives at home with her family. Denies any history of alcohol use, tobacco use, illicit drug use. Alcohol Use: none Smoking Status: Never smoker Drug Use: none Exam/Review of Systems Vital Signs Vitals Vital Signs Date Time Temp Pulse Resp B/P Pulse Ox O2 Delivery O2 Flow Rate FiO2 03/15/16 15:30 97.5 70 20 91/55 100 03/15/16 14:29 4.0 03/15/16 14:29 Nasal Cannula 03/14/16 18:12 36 Intake and Output 03/14/16 03/14/16 03/15/16 15:00 23:00 07:00 Intake Total 860 ml 290 ml Output Total 2485 ml 1105 ml Balance -1625 ml -815 ml Results Result Diagram: 03/14/16 0500 03/15/16 0605 Results 24 hrs Laboratory Tests Test 03/15/16 06:05 Alanine Aminotransferase (ALT/SGPT) 1284 H Albumin 3.2 L Albumin/Globulin Ratio 1.10 Alkaline Phosphatase 150 H Anion Gap 22 #H Aspartate Amino Transf (AST/SGOT) 1789 H Blood Urea Nitrogen 25 #H Calcium Level 7.8 L Carbon Dioxide Level 27 Chloride Level 94 L Cholesterol Level 68 L Cholesterol/HDL Ratio 1.7 Creatinine 2.06 H Direct Bilirubin 0.00 Globulin 3.00 Glucose Level 71 HDL Cholesterol 38 HIV (1&2) Antibody NEGATIVE Hepatitis B Core Total Antibody NEGATIVE Hepatitis B Surface Antigen NEGATIVE Hepatitis C Antibody NEGATIVE Indirect Bilirubin 1.0 LDL Cholesterol, Calculated 4 Lactic Acid Level 4.9 *H Lipase 868 H Potassium Level 3.6 Random Vancomycin Level < 5.0 Serum HCG, Qualitative NEGATIVE Sodium Level 139 Total Bilirubin 1.0 Total Protein 5.9 L Triglycerides Level 129 Medications Medications Current Medications Pantoprazole (Protonix Iv) 40 mg DAILY@06 IV Last administered on 03/15/16 05: 47; Admin Dose 40 MG; Start 03/14/16 at 06:00 Aspirin 81 mg 81 mg DAILY PO Last administered on 03/15/16 09:18; Admin Dose 81 MG; Start 03/14/16 at 09:00 Piperacillin Sod/ Tazobactam Sod (Zosyn 2.25gm/ 50ml (Pmx)) 50 ml @ 100 mls/hr Q12 IVPB Last administered on 03/15/16 09:18; Admin Dose 100 MLS/HR; Start 01/18 at 21:00 Metoprolol Tartrate (Lopressor) 25 mg BID PO Last administered on 03/15/16t 14: 27; Admin Dose 25 MG; Start 03/15/16 at 14:00 Influenza Virus Vaccine (Fluzone) 0.5 ml ONCE ONCE IM* ; Start 03/16/16 at 09:00 ; Stop 03/16/16 at 09:01 Lactobacillus Acidophilus/ Rhamnosus (Culturelle) 1 cap BID PO ; Start 03/15/16 at 21:00; Status UNV TO,JODY Bourgeois MD Mar 15, 2016 16:42
[2016-03-15 20:45] LABS: CK-MB 28.9 ng/ml (0.0-2.4)
[2016-03-15 21:14] LABS: TROPONIN-I 2.58 ng/ml (0.00-0.12)
[2016-03-15] MEDS: LACTOBACILLUS RHAMNOSUS CAP PO SCH (21:42)
[2016-03-16] VITALS (11 sets, daily range): BP systolic 109–143; BP diastolic 56–73; PULSE 70; RESP 18–20
[2016-03-16] MEDS: LEVALBUTEROL (NEB) 0.63 MG/3 ML AMP HHN SCH ×4 (01:26→19:51)
[2016-03-16 02:03] LABS: CK-MB 30.4 ng/ml (0.0-2.4)
[2016-03-16 02:14] LABS: TROPONIN-I 1.88 ng/ml (0.00-0.12)
[2016-03-16] MEDS: PANTOPRAZOLE 40 MG INJ IV SCH (05:56)
[2016-03-16 07:36] LABS: BASOPHILS % 0.6 % (0.0-2.0); EOSINOPHILS # 0.3 10^3/ul (0.0-0.5); EOSINOPHILS % 4.6 % (0.0-7.0); HEMATOCRIT 25.9 % (37.0-47.0); HEMOGLOBIN 8.7 g/dl (12.0-16.0); LYMPHOCYTES # 1.1 10^3/ul (0.8-2.9); LYMPHOCYTES % 16.6 % (15.0-51.0); MEAN CORPUSCULAR HEMOGLOBIN 34.8 pg (29.0-33.0); MEAN CORPUSCULAR HGB CONC 33.7 g/dl (32.0-37.0); MEAN CORPUSCULAR VOLUME 103.2 fl (82.0-101.0); MEAN PLATELET VOLUME 9.2 fl (7.4-10.4); MONOCYTE # 0.2 10^3/ul (0.3-0.9); MONOCYTES % 3.8 % (0.0-11.0); NEUTROPHIL # 4.9 10^3/ul (1.6-7.5); NEUTROPHILS % 74.4 % (39.0-77.0); RED BLOOD COUNT 2.51 10^6/ul (4.20-5.40); RED CELL DISTRIBUTION WIDTH 17.9 % (11.5-14.5); UNCORRECTED WBC 6.5 10^3/ul (4.8-10.8); WHITE BLOOD COUNT 6.5 10^3/ul (4.8-10.8)
[2016-03-16 07:40] LABS: INR 1.37; PROTIME 16.9 Sec (12.2-14.2); PT RATIO 1.3
[2016-03-16 07:41] LABS: PARTIAL THROMBOPLASTIN TIME 41.4 Sec (25.0-35.0)
[2016-03-16 07:42] LABS: THROMBIN TIME 17.2 SEC (13.8-19.1)
[2016-03-16 07:43] LABS: POTASSIUM 3.2 mmol/L (3.5-5.1)
[2016-03-16 07:45] LABS: CREATININE 2.75 mg/dl (0.44-1.00)
[2016-03-16 07:46] LABS: CALCIUM 7.4 mg/dl (8.4-10.2)
[2016-03-16 07:47] LABS: D-DIMER 3039.95 ng/ml (<460)
[2016-03-16 08:01] LABS: CONDITION 1; LH ANALYZER COMMENTS 1
[2016-03-16 08:02] LABS: PLATELET COUNT 56 10^3/UL (140-440)
[2016-03-16 08:04] LABS: PLATELET COUNT 54 10^3/UL (140-440)
--- NOTE | 2016-03-16 08:15 | CONS ---
DATE OF ADMISSION: 03/13/2016 DATE OF CONSULTATION: TYPE OF CONSULTATION: Gastroenterology. REFERRING PHYSICIAN: Gage Tamayo MD Dear Gage: Thank you for asking me to evaluate your patient. HISTORY OF PRESENT ILLNESS: The patient is a 25-year-old female with a past medical history of end- stage renal disease on hemodialysis, legally blind, was admitted to the hospital for cough and fever . In the dialysis unit the patient received vancomycin. However, upon returning home, patient cont inued to have a cough and shortness of breath, so she was brought to the emergency room. In the ER, she was evaluated. The patient had a multilobular pneumonia and lactic acid level was 16.2. She w as started on vancomycin and Zosyn and admitted for further management. The patient feels better no w. Shortness of breath has reduced. Cough is reduced. GI consult was called in for abnormal LFT w hich were in the range of 1000. The patient denies having any abdominal pain, no nausea, no vomitin g, no GI bleeding. No history of hepatitis in the past or consuming any hepatotoxic medication. 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 PAST SURGICAL HISTORY: AV fistula. FAMILY HISTORY: Nothing significant. SOCIAL HISTORY: She lives at home with her family. No alcohol or tobacco. PHYSICAL EXAMINATION VITAL SIGNS: Stable. Her blood pressure in the ER at one point was 91/55. GENERAL: She is blind but alert, awake, not in distress. ABDOMEN: Benign. CARDIOVASCULAR: No murmur, gallop. LUNGS: Rhonchi heard at the base. EXTREMITIES: No edema. CENTRAL NERVOUS SYSTEM: Grossly within normal limit. LABORATORY DATA: On March 15 SGOT was 1789, SGPT 1284, alkaline phosphatase was 150, lactic acid has come down to 4.9. WBC is 9.5, hematocrit was 27, MCV was elevated to 102. INR was within onelia l limit. Serologies for hepatitis A, B and C. All were negative. HIV study also was negative. Ultrasound of the abdomen was negative. IMPRESSION: 1. End-stage renal disease. 2. Pneumonia with sepsis. 3. Abnormal LFT, rule out ischemic hepatitis. 4. Anemia. 5. Macrocytosis. 6. End-stage renal disease on dialysis. 7. Status post pacemaker insertion. 8. Legally blind. PLAN: At this point, continue antibiotic as per ID. We will monitor LFT. No hepatotoxic drugs. On ce again, thank you for the referral. Dictated By: BREA MOSQUERA/NTS Conf#: [id number] DID#: [id number] CC: GAGE TAMAYO MD;*EndCC*
[2016-03-16] MEDS ORDERED: INFLUENZA VIRUS VACCINE 0.5 ML (DISPENSING) IM* ONE (09:00)
[2016-03-16] MEDS: PIPER-TAZO 2.25 GM (PMX) 50 ML IVPB SCH (09:23)
[2016-03-16 09:24] LABS: FIBRIN SPLIT PRODUCT <10 ug/ml (<10)
[2016-03-16] MEDS: METOPROLOL 25 MG TAB PO SCH ×2 (09:24→20:49)
[2016-03-16] MEDS: ASPIRIN 81 MG TAB PO SCH (09:24)
[2016-03-16] MEDS: LACTOBACILLUS RHAMNOSUS CAP PO SCH ×2 (09:24→20:43)
[2016-03-16 11:16] LABS: ALBUMIN 3.2 g/dl (3.3-4.9)
[2016-03-16 11:17] LABS: POTASSIUM 3.2 mmol/L (3.5-5.1)
[2016-03-16 11:19] LABS: ALBUMIN/GLOBULIN RATIO 1.06; BILIRUBIN,INDIRECT 0.6 mg/dl (0-1.1); BILIRUBIN,TOTAL 0.6 mg/dl (0.2-1.3); CREATININE 2.72 mg/dl (0.44-1.00); TOTAL PROTEIN 6.2 g/dl (6.1-8.1)
[2016-03-16 11:20] LABS: CALCIUM 7.4 mg/dl (8.4-10.2)
--- NOTE | 2016-03-16 12:04 | CONS ---
Date/Time of Note Date/Time of Note DATE: 03/16/16 TIME: 12:02 Assessment/Plan Assessment/Plan Additional Assessment/Plan IMPRESSION: 1. End-stage renal disease. 2. Pneumonia with sepsis. 3. Abnormal LFT, rule out ischemic hepatitis.hepatitis panel negative 4. Anemia. 5. Macrocytosis. 6. End-stage renal disease on dialysis. 7. Status post pacemaker insertion. 8. Legally blind. Plan monitor liver function continue present care Consultation Date/Type/Reason Admit Date/Time Mar 13, 2016 at 13:38 Initial Consult Date 03/15/16 Type of Consultation: Hematology/Oncology Referring Provider: BRENNA JENSEN 24 HR Interval Summary Constitutional: no complaints Exam/Review of Systems Vital Signs Vitals Vital Signs Date Time Temp Pulse Resp B/P Pulse Ox O2 Delivery O2 Flow Rate FiO2 03/16/16 11:43 98.5 78 18 118/59 97 03/16/16 08:17 Nasal Cannula 1.0 03/14/16 18:12 36 Intake and Output 03/15/16 03/15/16 03/16/16 15:00 23:00 07:00 Intake Total 550 ml 300 ml Output Total 1500 ml 1000 ml Balance -950 ml -700 ml Exam Constitutional: alert, oriented, well developed Psych: nl mood/affect, no complaints Head: atraumatic, normocephalic Eyes: EOMI, PERRL, nl conjunctiva, nl lids, nl sclera ENMT: nl external ears & nose, nl lips & teeth, nl nasal mucosa & septum Neck: non-tender, supple Respiratory: clear to auscultation, normal air movement Cardiovascular: nl pulses, regular rate and rhythm Gastrointestinal: nl liver, spleen, non-tender, soft Musculoskeletal: nl extremities to inspection, nl gait and stance Extremities: normal pulses Neurological: [employer] ARMAMENT II-XII intact, nl mental status, nl speech, nl strength Skin: nl turgor, No rash or lesions Lymph: nl lymph nodes Results Result Diagram: 03/16/16 0555 03/16/16 0555 Results 24 hrs Laboratory Tests Test 03/15/16 18:50 03/16/16 01:20 03/16/16 05:55 Creatine Kinase 2518 H 2597 H Creatine Kinase Index 1.1 1.2 Creatinine Kinase MB (Mass) 28.90 H 30.40 H Troponin I 2.580 *H 1.880 *H Activated Partial Thromboplast Time 41.4 H Alanine Aminotransferase (ALT/SGPT) 1467 H Albumin 3.2 L Albumin/Globulin Ratio 1.06 Alkaline Phosphatase 169 H Anion Gap 21 H Aspartate Amino Transf (AST/SGOT) Basophils # 0.0 Basophils % 0.6 Blood Morphology Comment Blood Urea Nitrogen 27 H Calcium Level 7.4 L Carbon Dioxide Level 26 Chloride Level 98 Creatinine 2.72 H D-Dimer 3039.95 H D-Dimer Comment Direct Bilirubin 0.00 Eosinophils # 0.3 Eosinophils % 4.6 Fibrinogen 338.0 Globulin 3.00 Glucose Level 69 L Hematocrit 25.9 L Hemoglobin 8.7 L INR International Normalized Ratio 1.37 Indirect Bilirubin 0.6 Lymphocytes # 1.1 Lymphocytes % 16.6 Mean Corpuscular Hemoglobin 34.8 H Mean Corpuscular Hemoglobin Concent 33.7 Mean Corpuscular Volume 103.2 H Mean Platelet Volume 9.2 Monocytes # 0.2 L Monocytes % 3.8 Neutrophils # 4.9 Neutrophils % 74.4 Nucleated Red Blood Cells # 0.0 Nucleated Red Blood Cells % 0.0 Plasma Fibrin Degradation Products <10 Platelet Count 54 L Potassium Level 3.2 L Prothrombin Time 16.9 H Prothrombin Time Ratio 1.3 Red Blood Count 2.51 L Red Cell Distribution Width 17.9 H Sodium Level 142 Thrombin Time 17.2 Total Bilirubin 0.6 Total Protein 6.2 White Blood Count 6.5 # Medications Medications Current Medications Pantoprazole (Protonix Iv) 40 mg DAILY@06 IV Last administered on 03/16/16 05: 56; Admin Dose 40 MG; Start 03/14/16 at 06:00 Aspirin 81 mg 81 mg DAILY PO Last administered on 03/16/16 09:24; Admin Dose 81 MG; Start 03/14/16 at 09:00 Piperacillin Sod/ Tazobactam Sod (Zosyn 2.25gm/ 50ml (Pmx)) 50 ml @ 100 mls/hr Q12 IVPB Last administered on 03/16/16 09:23; Admin Dose 100 MLS/HR; Start 01/18 at 21:00 Metoprolol Tartrate (Lopressor) 25 mg BID PO Last administered on 03/16/16 09: 24; Admin Dose 25 MG; Start 03/15/16 at 14:00 Lactobacillus Acidophilus/ Rhamnosus (Culturelle) 1 cap BID PO Last administered on 03/16/16t 09:24; Admin Dose 1 CAP; Start 03/15/16 at 21:00 BREA KEN MD Mar 16, 2016 12:04
--- NOTE | 2016-03-16 13:15 | CONS ---
Date/Time of Note Date/Time of Note DATE: 03/16/16 TIME: 13:07 Assessment/Plan Assessment/Plan Chief Complaint/Hosp Course Chief Complaint/Hosp Course The patient is a 25 year old female with past medical history of end-stage renal disease, hemodialysis-dependent, legal blindness, with multilobar pneumonia with lactic acid 16.2, on vancomycin and zosyn, as well as influenza A , with thrombocytopenia. Thrombocytopenia likely related to sepsis as well as possible contribution from both vancomycin and zosyn. DIC panel not convincing for DIC. - HIV, Hep B/C neg. - Peripheral smear with path review ordered, which showed decreased platelets, no clumping, no schistocytes. - Will continue to follow counts. Consider switching antibiotics if platelets continue to decline. Will continue to follow. Problems: Consultation Date/Type/Reason Admit Date/Time Mar 13, 2016 at 13:38 Initial Consult Date 03/15/16 Type of Consultation: Hematology/Oncology Referring Provider: BRENNA JENSEN 24 HR Interval Summary Free Text/Dictation Patient doing well, no complaints. States that she feels better. Exam/Review of Systems Vital Signs Vitals Vital Signs Date Time Temp Pulse Resp B/P Pulse Ox O2 Delivery O2 Flow Rate FiO2 03/16/16 12:26 70 03/16/16 11:43 98.5 18 118/59 97 03/16/16 08:17 Nasal Cannula 1.0 03/14/16 18:12 36 Intake and Output 03/15/16 03/15/16 03/16/16 15:00 23:00 07:00 Intake Total 550 ml 300 ml Output Total 1500 ml 1000 ml Balance -950 ml -700 ml Exam Constitutional: alert, oriented, well developed Psych: nl mood/affect, no complaints Head: atraumatic, normocephalic Eyes: EOMI, PERRL, nl conjunctiva, nl lids, nl sclera Neck: non-tender, supple Respiratory: clear to auscultation, normal air movement Cardiovascular: nl pulses, regular rate and rhythm Gastrointestinal: nl liver, spleen, non-tender, soft Results Result Diagram: 03/16/16 0555 03/16/16 0555 Results 24 hrs Laboratory Tests Test 03/15/16 18:50 03/16/16 01:20 03/16/16 05:55 Creatine Kinase 2518 H 2597 H Creatine Kinase Index 1.1 1.2 Creatinine Kinase MB (Mass) 28.90 H 30.40 H Troponin I 2.580 *H 1.880 *H Activated Partial Thromboplast Time 41.4 H Alanine Aminotransferase (ALT/SGPT) 1467 H Albumin 3.2 L Albumin/Globulin Ratio 1.06 Alkaline Phosphatase 169 H Anion Gap 21 H Aspartate Amino Transf (AST/SGOT) Basophils # 0.0 Basophils % 0.6 Blood Morphology Comment Blood Urea Nitrogen 27 H Calcium Level 7.4 L Carbon Dioxide Level 26 Chloride Level 98 Creatinine 2.72 H D-Dimer 3039.95 H D-Dimer Comment Direct Bilirubin 0.00 Eosinophils # 0.3 Eosinophils % 4.6 Fibrinogen 338.0 Globulin 3.00 Glucose Level 69 L Hematocrit 25.9 L Hemoglobin 8.7 L INR International Normalized Ratio 1.37 Indirect Bilirubin 0.6 Lymphocytes # 1.1 Lymphocytes % 16.6 Mean Corpuscular Hemoglobin 34.8 H Mean Corpuscular Hemoglobin Concent 33.7 Mean Corpuscular Volume 103.2 H Mean Platelet Volume 9.2 Monocytes # 0.2 L Monocytes % 3.8 Neutrophils # 4.9 Neutrophils % 74.4 Nucleated Red Blood Cells # 0.0 Nucleated Red Blood Cells % 0.0 Plasma Fibrin Degradation Products <10 Platelet Count 54 L Potassium Level 3.2 L Prothrombin Time 16.9 H Prothrombin Time Ratio 1.3 Red Blood Count 2.51 L Red Cell Distribution Width 17.9 H Sodium Level 142 Thrombin Time 17.2 Total Bilirubin 0.6 Total Protein 6.2 White Blood Count 6.5 # Medications Medications Current Medications Pantoprazole (Protonix Iv) 40 mg DAILY@06 IV Last administered on 03/16/16 05: 56; Admin Dose 40 MG; Start 03/14/16 at 06:00 Aspirin 81 mg 81 mg DAILY PO Last administered on 03/16/16 09:24; Admin Dose 81 MG; Start 03/14/16 at 09:00 Piperacillin Sod/ Tazobactam Sod (Zosyn 2.25gm/ 50ml (Pmx)) 50 ml @ 100 mls/hr Q12 IVPB Last administered on 03/16/16 09:23; Admin Dose 100 MLS/HR; Start 01/18 at 21:00 Metoprolol Tartrate (Lopressor) 25 mg BID PO Last administered on 03/16/16 09: 24; Admin Dose 25 MG; Start 03/15/16 at 14:00 Lactobacillus Acidophilus/ Rhamnosus (Culturelle) 1 cap BID PO Last administered on 03/16/16 09:24; Admin Dose 1 CAP; Start 03/15/16 at 21:00 JODY QUARLES MD Mar 16, 2016 13:15
--- NOTE | 2016-03-16 13:19 | CONS ---
Date/Time of Note Date/Time of Note DATE: 03/16/16 TIME: :17 Assessment/Plan Assessment/Plan Chief Complaint/Hosp Course IMPRESSION: 1. Patient has acute hypoxic respiratory failure, lung infiltrate.better 2. Pulmonary edema, rule out ischemic heart disease.better 3. End-stage renal disease. 4. Hypertension. 5. Anemia. 6. Retinitis pigmentosa. 7. Lactic acidosis. 8. Positive troponin. 9 sirs 10 nstemi 11 hypokalemia plan hd kcl Problems: Consultation Date/Type/Reason Admit Date/Time Mar 13, 2016 at 13:38 Initial Consult Date 03/14/16 Type of Consultation: renal Referring Provider: BRENNA JENSEN 24 HR Interval Summary Constitutional: no complaints Exam/Review of Systems Vital Signs Vitals Vital Signs Date Time Temp Pulse Resp B/P Pulse Ox O2 Delivery O2 Flow Rate FiO2 03/16/16 12:26 70 03/16/16 11:43 98.5 18 118/59 97 03/16/16 08:17 Nasal Cannula 1.0 03/14/16 18:12 36 Intake and Output 03/15/16 03/15/16 03/16/16 15:00 23:00 07:00 Intake Total 550 ml 300 ml Output Total 1500 ml 1000 ml Balance -950 ml -700 ml Exam Neck: supple Respiratory: clear to auscultation Cardiovascular: regular rate and rhythm Gastrointestinal: soft Extremities: No edema Results Result Diagram: 03/16/16 0555 03/16/16 0555 Results 24 hrs Laboratory Tests Test 03/15/16 18:50 03/16/16 01:20 03/16/16 05:55 Creatine Kinase 2518 H 2597 H Creatine Kinase Index 1.1 1.2 Creatinine Kinase MB (Mass) 28.90 H 30.40 H Troponin I 2.580 *H 1.880 *H Activated Partial Thromboplast Time 41.4 H Alanine Aminotransferase (ALT/SGPT) 1467 H Albumin 3.2 L Albumin/Globulin Ratio 1.06 Alkaline Phosphatase 169 H Anion Gap 21 H Aspartate Amino Transf (AST/SGOT) Basophils # 0.0 Basophils % 0.6 Blood Morphology Comment Blood Urea Nitrogen 27 H Calcium Level 7.4 L Carbon Dioxide Level 26 Chloride Level 98 Creatinine 2.72 H D-Dimer 3039.95 H D-Dimer Comment Direct Bilirubin 0.00 Eosinophils # 0.3 Eosinophils % 4.6 Fibrinogen 338.0 Globulin 3.00 Glucose Level 69 L Hematocrit 25.9 L Hemoglobin 8.7 L INR International Normalized Ratio 1.37 Indirect Bilirubin 0.6 Lymphocytes # 1.1 Lymphocytes % 16.6 Mean Corpuscular Hemoglobin 34.8 H Mean Corpuscular Hemoglobin Concent 33.7 Mean Corpuscular Volume 103.2 H Mean Platelet Volume 9.2 Monocytes # 0.2 L Monocytes % 3.8 Neutrophils # 4.9 Neutrophils % 74.4 Nucleated Red Blood Cells # 0.0 Nucleated Red Blood Cells % 0.0 Plasma Fibrin Degradation Products <10 Platelet Count 54 L Potassium Level 3.2 L Prothrombin Time 16.9 H Prothrombin Time Ratio 1.3 Red Blood Count 2.51 L Red Cell Distribution Width 17.9 H Sodium Level 142 Thrombin Time 17.2 Total Bilirubin 0.6 Total Protein 6.2 White Blood Count 6.5 # Medications Medications Current Medications Pantoprazole (Protonix Iv) 40 mg DAILY@06 IV Last administered on 03/16/16 05: 56; Admin Dose 40 MG; Start 03/14/16 at 06:00 Aspirin 81 mg 81 mg DAILY PO Last administered on 03/16/16 09:24; Admin Dose 81 MG; Start 03/14/16 at 09:00 Piperacillin Sod/ Tazobactam Sod (Zosyn 2.25gm/ 50ml (Pmx)) 50 ml @ 100 mls/hr Q12 IVPB Last administered on 03/16/16 09:23; Admin Dose 100 MLS/HR; Start 01/18 at 21:00 Metoprolol Tartrate (Lopressor) 25 mg BID PO Last administered on 03/16/16 09: 24; Admin Dose 25 MG; Start 03/15/16 at 14:00 Lactobacillus Acidophilus/ Rhamnosus (Culturelle) 1 cap BID PO Last administered on 03/16/16 09:24; Admin Dose 1 CAP; Start 03/15/16 at 21:00 DALLAS CABRAL MD Mar 16, 2016 13:18
[2016-03-16] MEDS ORDERED: POTASSIUM CHLORIDE (SR) 8 MEQ CAP PO ONE (13:30)
--- NOTE | 2016-03-16 16:45 | CONS ---
Date/Time of Note Date/Time of Note DATE: 03/16/16 TIME: 16:44 Assessment/Plan Assessment/Plan Chief Complaint/Hosp Course assessment/impression: - influenza A bronchitis - possibly concurrent HCAP, multi-lobar - pulmonary edema - lactic acidosis - transaminitis, possibly shock liver - ESRD on HD via AVG on RUE, being worked up for renal transplant at [facility] - anemia - thrombocytopenia, possibly induced by pip/tazo - b/l blindness from retinitis pigmentosa. - positive troponin on admission, CAD, +pacemaker recommendations: - discontinue pip/tazo - start meropenem and zithromax - continue oseltamivir (03/13/16-) - probiotics - appreciate GI eval for transaminitis - Above d/w Dr. Lenz Problems: Consultation Date/Type/Reason Admit Date/Time Mar 13, 2016 at 13:38 Initial Consult Date 03/14/16 Type of Consultation: Infectious Disease Reason for Consultation Antibiotic management Referring Provider: BRENNA JENSEN 24 HR Interval Summary Free Text/Dictation Pt overall is improving since admission per pt's father and now just fell asleep. No complaints of pain, SOB, n/v/d. Pt with persistent cough per RN Adeola. Exam/Review of Systems Vital Signs Vitals Vital Signs Date Time Temp Pulse Resp B/P Pulse Ox O2 Delivery O2 Flow Rate FiO2 03/16/16 15:45 98.2 69 18 124/62 97 03/16/16 13:54 Nasal Cannula 1.0 03/14/16 18:12 36 Intake and Output 03/15/16 03/15/16 03/16/16 15:00 23:00 07:00 Intake Total 550 ml 300 ml Output Total 1500 ml 1000 ml Balance -950 ml -700 ml Exam Constitutional: other (sleeping quietly with 3 family members at bedside) Head: atraumatic, normocephalic Respiratory: clear to auscultation (anteriorly), diminished breath sounds Cardiovascular: nl pulses, regular rate and rhythm Gastrointestinal: soft Extremities: other (RUE AVF with good bruit and thrill), No edema Skin: nl turgor Results Result Diagram: 03/16/16 0555 03/16/16 0555 Results 24 hrs Laboratory Tests Test 03/15/16 18:50 03/16/16 01:20 03/16/16 05:55 Creatine Kinase 2518 H 2597 H Creatine Kinase Index 1.1 1.2 Creatinine Kinase MB (Mass) 28.90 H 30.40 H Troponin I 2.580 *H 1.880 *H Activated Partial Thromboplast Time 41.4 H Alanine Aminotransferase (ALT/SGPT) 1467 H Albumin 3.2 L Albumin/Globulin Ratio 1.06 Alkaline Phosphatase 169 H Anion Gap 21 H Aspartate Amino Transf (AST/SGOT) Basophils # 0.0 Basophils % 0.6 Blood Morphology Comment Blood Urea Nitrogen 27 H Calcium Level 7.4 L Carbon Dioxide Level 26 Chloride Level 98 Creatinine 2.72 H D-Dimer 3039.95 H D-Dimer Comment Direct Bilirubin 0.00 Eosinophils # 0.3 Eosinophils % 4.6 Fibrinogen 338.0 Globulin 3.00 Glucose Level 69 L Hematocrit 25.9 L Hemoglobin 8.7 L INR International Normalized Ratio 1.37 Indirect Bilirubin 0.6 Lymphocytes # 1.1 Lymphocytes % 16.6 Mean Corpuscular Hemoglobin 34.8 H Mean Corpuscular Hemoglobin Concent 33.7 Mean Corpuscular Volume 103.2 H Mean Platelet Volume 9.2 Monocytes # 0.2 L Monocytes % 3.8 Neutrophils # 4.9 Neutrophils % 74.4 Nucleated Red Blood Cells # 0.0 Nucleated Red Blood Cells % 0.0 Plasma Fibrin Degradation Products <10 Platelet Count 54 L Potassium Level 3.2 L Prothrombin Time 16.9 H Prothrombin Time Ratio 1.3 Red Blood Count 2.51 L Red Cell Distribution Width 17.9 H Sodium Level 142 Thrombin Time 17.2 Total Bilirubin 0.6 Total Protein 6.2 White Blood Count 6.5 # Medications Medications Current Medications Pantoprazole (Protonix Iv) 40 mg DAILY@06 IV Last administered on 03/16/16 05: 56; Admin Dose 40 MG; Start 03/14/16 at 06:00 Aspirin 81 mg 81 mg DAILY PO Last administered on 03/16/16 09:24; Admin Dose 81 MG; Start 03/14/16 at 09:00 Piperacillin Sod/ Tazobactam Sod (Zosyn 2.25gm/ 50ml (Pmx)) 50 ml @ 100 mls/hr Q12 IVPB Last administered on 03/16/16 09:23; Admin Dose 100 MLS/HR; Start 01/18 at 21:00 Metoprolol Tartrate (Lopressor) 25 mg BID PO Last administered on 03/16/16 09: 24; Admin Dose 25 MG; Start 03/15/16 at 14:00 Lactobacillus Acidophilus/ Rhamnosus (Culturelle) 1 cap BID PO Last administered on 03/16/16 09:24; Admin Dose 1 CAP; Start 03/15/16 at 21:00 DION TORRES NP Mar 16, 2016 16:45
--- NOTE | 2016-03-16 16:50 | CONS ---
Date/Time of Note Date/Time of Note DATE: 03/16/16 TIME: 16:47 Assessment/Plan Assessment/Plan Chief Complaint/Hosp Course IMPRESSION: 1. Positive troponin, assess significance in the setting of renal failure, respiratory distress.-Now downtrending 2. Permanent pacemaker, assess function. 3. Hypertension, borderline. 4. Respiratory distress. 5. End-stage renal disease on hemodialysis. 6. Anemia. 7. Thrombocytopenia. 8. Increased liver function tests. 9. Anemia. Recc: -Terle -serial ecg's -Continue asa/low dose BB -Consider low dose SQ heparin -Lexiscan stress test when stable off of precautions -HD for volume removal -Continue tamiflu/bronchodilators Problems: Consultation Date/Type/Reason Admit Date/Time Mar 13, 2016 at 13:38 Initial Consult Date 03/14/16 Type of Consultation: Cardiology Reason for Consultation positive troponin Referring Provider: BRENNA JENSEN Exam/Review of Systems Vital Signs Vitals Vital Signs Date Time Temp Pulse Resp B/P Pulse Ox O2 Delivery O2 Flow Rate FiO2 03/16/16 15:45 98.2 69 18 124/62 97 03/16/16 13:54 Nasal Cannula 1.0 03/14/16 18:12 36 Intake and Output 03/15/16 03/15/16 03/16/16 15:00 23:00 07:00 Intake Total 550 ml 300 ml Output Total 1500 ml 1000 ml Balance -950 ml -700 ml Exam Review of Systems: CONSTITUTIONAL: No fevers, chills. PULMONARY: mild sob CARDIOVASCULAR: No chest pain/palpitations GASTROINTESTINAL: No nausea/vomiting. GENITOURINARY: No hematuria/dysuria. MUSCULOSKELETAL: No myagias/arthalgias. PSYCHIATRIC: The patient denies depression. NEUROLOGIC: No weakness Constitutional: alert Psych: no complaints Head: normocephalic ENMT: mucosa pink and moist Neck: jvd (9 cm water), supple Respiratory: diminished breath sounds (at bases/B) Cardiovascular: regular rate and rhythm Gastrointestinal: non-tender, soft Musculoskeletal: muscle tone (normal) Extremities: edema (none) Neurological: other (No focal deficits) Results Result Diagram: 03/16/16 0555 03/16/16 0555 Results 24 hrs Laboratory Tests Test 03/15/16 18:50 03/16/16 01:20 03/16/16 05:55 Creatine Kinase 2518 H 2597 H Creatine Kinase Index 1.1 1.2 Creatinine Kinase MB (Mass) 28.90 H 30.40 H Troponin I 2.580 *H 1.880 *H Activated Partial Thromboplast Time 41.4 H Alanine Aminotransferase (ALT/SGPT) 1467 H Albumin 3.2 L Albumin/Globulin Ratio 1.06 Alkaline Phosphatase 169 H Anion Gap 21 H Aspartate Amino Transf (AST/SGOT) Basophils # 0.0 Basophils % 0.6 Blood Morphology Comment Blood Urea Nitrogen 27 H Calcium Level 7.4 L Carbon Dioxide Level 26 Chloride Level 98 Creatinine 2.72 H D-Dimer 3039.95 H D-Dimer Comment Direct Bilirubin 0.00 Eosinophils # 0.3 Eosinophils % 4.6 Fibrinogen 338.0 Globulin 3.00 Glucose Level 69 L Hematocrit 25.9 L Hemoglobin 8.7 L INR International Normalized Ratio 1.37 Indirect Bilirubin 0.6 Lymphocytes # 1.1 Lymphocytes % 16.6 Mean Corpuscular Hemoglobin 34.8 H Mean Corpuscular Hemoglobin Concent 33.7 Mean Corpuscular Volume 103.2 H Mean Platelet Volume 9.2 Monocytes # 0.2 L Monocytes % 3.8 Neutrophils # 4.9 Neutrophils % 74.4 Nucleated Red Blood Cells # 0.0 Nucleated Red Blood Cells % 0.0 Plasma Fibrin Degradation Products <10 Platelet Count 54 L Potassium Level 3.2 L Prothrombin Time 16.9 H Prothrombin Time Ratio 1.3 Red Blood Count 2.51 L Red Cell Distribution Width 17.9 H Sodium Level 142 Thrombin Time 17.2 Total Bilirubin 0.6 Total Protein 6.2 White Blood Count 6.5 # Medications Medications Current Medications Pantoprazole (Protonix Iv) 40 mg DAILY@06 IV Last administered on 03/16/16 05: 56; Admin Dose 40 MG; Start 03/14/16 at 06:00 Aspirin 81 mg 81 mg DAILY PO Last administered on 03/16/16 09:24; Admin Dose 81 MG; Start 03/14/16 at 09:00 Piperacillin Sod/ Tazobactam Sod (Zosyn 2.25gm/ 50ml (Pmx)) 50 ml @ 100 mls/hr Q12 IVPB Last administered on 03/16/16 09:23; Admin Dose 100 MLS/HR; Start 01/18 at 21:00 Metoprolol Tartrate (Lopressor) 25 mg BID PO Last administered on 03/16/16 09: 24; Admin Dose 25 MG; Start 03/15/16 at 14:00 Lactobacillus Acidophilus/ Rhamnosus (Culturelle) 1 cap BID PO Last administered on 03/16/16 09:24; Admin Dose 1 CAP; Start 03/15/16 at 21:00 HOOD CANALES Mar 16, 2016 16:50
--- NOTE | 2016-03-16 18:44 | PN ---
Date/Time of Note Date/Time of Note DATE: 03/16/16 TIME: 18:41 Assessment/Plan VTE Prophylaxis VTE Prophylaxis Intervention: SCD's Lines/Catheters IV [facility]from [facility] Central Line Central line still needed: Yes Urinary Cath still in place: No Assessment/Plan Chief Complaint/Hosp Course ASSESSMENT AND PLAN: 1. Multilobar pneumonia. Continue meropenem and Zithromax. Dr. Glover is following an infection disease consultation. 2. Influenza A, continue Tamiflu. 3. Acute respiratory distress, resolving. Continue oxygen supplementation and bronchodilators. Dr. Reed to see patient in pulmonology consultation. 2. End-stage renal disease, hemodialysis dependent. Dr. Lake is following patient in nephrology consultation. 3. Positive troponin. Dr Red is following in cardiology consultation. Continue aspirin. 4. Permanent pacemaker. 5. Hypertension, currently patient is normotensive. 6. Anemia of chronic disease. 7. Legally blind. 8. Thrombocytopenia. 9. Pulmonary edema. Continue remove fluids with hemodialysis. 10. Transaminitis. Dr. Herrera is following in gastroenterology consultation. Continue Protonix for peptic ulcer disease prophylaxis. Further recommendations based on clinical course. Plan of care discussed with Dr. Goldman. Problems: Subjective 24 Hr Interval Summary Free Text/Dictation Patient is comfortable on low-flow oxygen via nasal cannula only couple of liters, no fever. Exam/Review of Systems Vital Signs Vitals Vital Signs Date Time Temp Pulse Resp B/P Pulse Ox O2 Delivery O2 Flow Rate FiO2 03/16/16 16:12 70 03/16/16 15:45 98.2 18 124/62 97 03/16/16 13:54 Nasal Cannula 1.0 03/14/16 18:12 36 Intake and Output 03/15/16 03/15/16 03/16/16 15:00 23:00 07:00 Intake Total 550 ml 300 ml Output Total 1500 ml 1000 ml Balance -950 ml -700 ml Exam GENERAL: This is a well-developed, cachectic female, awake, alert. HEENT: The patient is legally blind. Oral mucosa is pink and moist. NECK: Supple. No cervical lymphadenopathy. LUNGS: With scattered rhonchi, diminished at the bases. CARDIOVASCULAR: Normal S1, S2. No murmurs, gallops, clicks, rubs noted. ABDOMEN: Flat, soft, nondistended, nontender. Bowel sounds present. No guarding, no tenderness. EXTREMITIES: With prominent muscle wasting. Right upper extremity with AV fistula. No cyanosis noted. Pulses equal bilaterally 2+. SKIN: There is no rash noted. NEUROLOGIC: The patient is awake, alert, and oriented to name and situation. No focal deficits noted. Results Result Diagram: 03/16/16 0555 03/16/16 0555 Results 24 hrs Laboratory Tests Test 03/15/16 18:50 03/16/16 01:20 03/16/16 05:55 Creatine Kinase 2518 H 2597 H Creatine Kinase Index 1.1 1.2 Creatinine Kinase MB (Mass) 28.90 H 30.40 H Troponin I 2.580 *H 1.880 *H Activated Partial Thromboplast Time 41.4 H Alanine Aminotransferase (ALT/SGPT) 1467 H Albumin 3.2 L Albumin/Globulin Ratio 1.06 Alkaline Phosphatase 169 H Anion Gap 21 H Aspartate Amino Transf (AST/SGOT) Basophils # 0.0 Basophils % 0.6 Blood Morphology Comment Blood Urea Nitrogen 27 H Calcium Level 7.4 L Carbon Dioxide Level 26 Chloride Level 98 Creatinine 2.72 H D-Dimer 3039.95 H D-Dimer Comment Direct Bilirubin 0.00 Eosinophils # 0.3 Eosinophils % 4.6 Fibrinogen 338.0 Globulin 3.00 Glucose Level 69 L Hematocrit 25.9 L Hemoglobin 8.7 L INR International Normalized Ratio 1.37 Indirect Bilirubin 0.6 Lymphocytes # 1.1 Lymphocytes % 16.6 Mean Corpuscular Hemoglobin 34.8 H Mean Corpuscular Hemoglobin Concent 33.7 Mean Corpuscular Volume 103.2 H Mean Platelet Volume 9.2 Monocytes # 0.2 L Monocytes % 3.8 Neutrophils # 4.9 Neutrophils % 74.4 Nucleated Red Blood Cells # 0.0 Nucleated Red Blood Cells % 0.0 Plasma Fibrin Degradation Products <10 Platelet Count 54 L Potassium Level 3.2 L Prothrombin Time 16.9 H Prothrombin Time Ratio 1.3 Red Blood Count 2.51 L Red Cell Distribution Width 17.9 H Sodium Level 142 Thrombin Time 17.2 Total Bilirubin 0.6 Total Protein 6.2 White Blood Count 6.5 # Medications Medications Current Medications Pantoprazole (Protonix Iv) 40 mg DAILY@06 IV Last administered on 03/16/16t 05: 56; Admin Dose 40 MG; Start 03/14/16 at 06:00 Aspirin (Aspirin) 81 mg DAILY PO Last administered on 03/16/16 09:24; Admin Dose 81 MG; Start 03/14/16 at 09:00 Metoprolol Tartrate (Lopressor) 25 mg BID PO Last administered on 03/16/16 09: 24; Admin Dose 25 MG; Start 03/15/16 at 14:00 Lactobacillus Acidophilus/ Rhamnosus 1 cap 1 cap BID PO Last administered on 09:24; Admin Dose 1 CAP; Start 03/15/16 at 21:00 Meropenem 500 mg/ Sodium Chloride 100 ml @ 200 mls/hr Q12 IVPB ; Start at 21:00; Status UNV Azithromycin (Zithromax 500mg/ NS (Pmx)) 250 ml @ 250 mls/hr Q24H IVPB ; Start 03/16/16 at 20:00 BRENNA JENSEN Mar 16, 2016 18:44
[2016-03-16] MEDS ORDERED: AZITHROMYCIN 500MG/NS (PMX) 250 ML IVPB SCH (20:00)
[2016-03-16] MEDS: MEROPENEM 500 MG in SOD CHLORIDE 0.9% 100 ML IVPB SCH (20:56)
[2016-03-16] MEDS ORDERED: morphine 2 MG INJ IV PRN (22:04)
[2016-03-17] VITALS (18 sets, daily range): BP systolic 94–129; BP diastolic 62–78; PULSE 61–70; RESP 15–20
[2016-03-17] MEDS: LEVALBUTEROL (NEB) 0.63 MG/3 ML AMP HHN SCH ×4 (02:18→20:53)
[2016-03-17] MEDS: PANTOPRAZOLE 40 MG INJ IV SCH (06:19)
[2016-03-17 06:56] LABS: POTASSIUM 4.4 mmol/L (3.5-5.1)
[2016-03-17 06:59] LABS: CREATININE 4.93 mg/dl (0.44-1.00)
[2016-03-17 07:50] LABS: HEMATOCRIT 25.6 % (37.0-47.0); HEMOGLOBIN 8.5 g/dl (12.0-16.0); MEAN CORPUSCULAR HEMOGLOBIN 34.3 pg (29.0-33.0); MEAN CORPUSCULAR HGB CONC 33.3 g/dl (32.0-37.0); MEAN PLATELET VOLUME 9.6 fl (7.4-10.4); RED BLOOD COUNT 2.48 10^6/ul (4.20-5.40); UNCORRECTED WBC 7.4 10^3/ul (4.8-10.8); WHITE BLOOD COUNT 7.4 10^3/ul (4.8-10.8)
[2016-03-17 07:55] LABS: CONDITION 1; LH ANALYZER COMMENTS 1
[2016-03-17 07:57] LABS: PLATELET COUNT 29 10^3/UL (140-440)
--- NOTE | 2016-03-17 08:50 | CONS ---
Date/Time of Note Date/Time of Note DATE: 03/17/16 TIME: 08:49 Assessment/Plan Assessment/Plan Chief Complaint/Hosp Course assessment/impression: - influenza A bronchitis - on tamiflu - possibly concurrent HCAP, multi-lobar - sputum cx grew normal respiratory alexandra; on meropenem - pulmonary edema - lactic acidosis - thrombocytopenia, possibly induced by pip/tazo (pip/tazo dc'd 03/16) - transaminitis, possibly shock liver - ESRD on HD via AVG on RUE, being worked up for renal transplant at 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 - positive troponin on admission in setting of resp distress and chronic renal failure - NSVT - Hx CHB s/p PPM - S/p Vanco (03/13-03/15) and pip/tazo (03/14-03/16) Recommendations: - continue oseltamivir (03/13/16-) - continue meropenem (03/16/16-) and discontinue zithromax (03/16/16-) - probiotics - trend platelet count; appreciate Hematology input - appreciate GI eval for transaminitis - management d/w pt - Above d/w Dr. Lenz Problems: Consultation Date/Type/Reason Admit Date/Time Mar 13, 2016 at 13:38 Initial Consult Date 03/14/16 Type of Consultation: Infectious Disease Reason for Consultation Antibiotic management Referring Provider: BRENNA JENSEN 24 HR Interval Summary Free Text/Dictation Had abd pain and diarrhea after initiation of IV Zithromax last night which was held. Currently denies pain. SOB and cough is improving. Denies CP, palpitations, abd pain, n/v. Brother asking about discharge planning. Had a run of NSVT this AM per JUNI [place]ne and pt was asymptomatic. Exam/Review of Systems Vital Signs Vitals Vital Signs Date Time Temp Pulse Resp B/P Pulse Ox O2 Delivery O2 Flow Rate FiO2 03/17/16 08:39 70 03/17/16 07:05 97.9 20 121/70 100 03/17/16 02:20 1.0 03/17/16 02:20 Nasal Cannula 03/14/16 18:12 36 Intake and Output 03/16/16 03/16/16 03/17/16 15:00 23:00 07:00 Intake Total 605 ml 500 ml Output Total 0 ml 0 ml Balance 605 ml 500 ml Exam Constitutional: alert, frail (somewhat frail), oriented, other (small in stature) Head: atraumatic, normocephalic Neck: supple Respiratory: crackles/rales (L>R), diminished breath sounds Cardiovascular: other (left chest wall PM noted intact), regular rate and rhythm Gastrointestinal: bowel sounds, non-tender, soft Musculoskeletal: nl extremities to inspection Extremities: normal pulses, other (RUE AVF with good bruit and thrill), No clubbing, No edema Neurological: nl mental status, nl speech Skin: nl turgor Results Result Diagram: 03/17/1661803/17/16 06 Results 24 hrs Laboratory Tests Test 03/17/16 06:19 Anion Gap 29 #H Blood Morphology Comment Blood Urea Nitrogen 44 #H Calcium Level 7.0 L Carbon Dioxide Level 20 L Chloride Level 101 Creatinine 4.93 #H Glucose Level 62 L Hematocrit 25.6 L Hemoglobin 8.5 L Mean Corpuscular Hemoglobin 34.3 H Mean Corpuscular Hemoglobin Concent 33.3 Mean Corpuscular Volume 103.0 H Mean Platelet Volume 9.6 Nucleated Red Blood Cells # Nucleated Red Blood Cells % Platelet Count 29 #*L Potassium Level 4.4 Red Blood Count 2.48 L Red Cell Distribution Width 18.0 H Sodium Level 146 H White Blood Count 7.4 Medications Medications Current Medications Pantoprazole (Protonix Iv) 40 mg DAILY@06 IV Last administered on 03/17/16 06: 19; Admin Dose 40 MG; Start 03/14/16 at 06:00 Aspirin (Aspirin) 81 mg DAILY PO Last administered on 03/16/16 09:24; Admin Dose 81 MG; Start 03/14/16 at 09:00 Metoprolol Tartrate (Lopressor) 25 mg BID PO Last administered on 03/16/16 09: 24; Admin Dose 25 MG; Start 03/15/16 at 14:00 Lactobacillus Acidophilus/ Rhamnosus 1 cap 1 cap BID PO Last administered on 20:43; Admin Dose 1 CAP; Start 03/15/16 at 21:00 Meropenem 500 mg/ Sodium Chloride 100 ml @ 200 mls/hr Q12 IVPB Last administered on 1/13/17at 20:56; Admin Dose 200 MLS/HR; Start 03/16/16 at 21:00 Azithromycin (Zithromax 500mg/ NS (Pmx)) 250 ml @ 250 mls/hr Q24H IVPB Last administered on 03/16/16t 20:43; Admin Dose 250 MLS/HR; Start 03/16/16 at 20:00 ; Status Future Hold Morphine Sulfate (morphine) 2 mg Q6 PRN IV pain; Start 03/16/16 at 22:04 Procedures Procedures ABD US 03/14/16: Bilateral atrophic echogenic kidneys compatible with sequelae of renal parenchymal disease. Mild increased periportal echogenicity which may be related to periportal edema given the history of hepatitis. There is no evidence of hepatic mass or fluid collection. CXR 03/14/16: FINDINGS: Bilateral air space disease consistent with pulmonary edema or multifocal pneumonia slightly improved. There is a left-sided dual lead permanent pacemaker. The heart is enlarged. There is no pleural effusion. There is no pneumothorax. IMPRESSION: 1. Slightly improved appearance of the lungs. 2. No other change from 03/13/2016. CXR 03/13/16: Moderate cardiomegaly with pulmonary vascular congestion. Bilateral perihilar and lower lobe infiltrates. Right upper lobe infiltrate. DION TORRES NP Mar 17, 2016 08:49
[2016-03-17] MEDS: ASPIRIN 81 MG TAB PO SCH (09:00)
[2016-03-17] MEDS: MEROPENEM 500 MG in SOD CHLORIDE 0.9% 100 ML IVPB SCH (09:00)
[2016-03-17 09:19] LABS: WHITE BLOOD COUNT 8.6 10^3/ul (4.8-10.8)
[2016-03-17] MEDS: LACTOBACILLUS RHAMNOSUS CAP PO SCH ×2 (10:10→10:18)
[2016-03-17] MEDS: METOPROLOL 25 MG TAB PO SCH ×3 (10:12→21:00)
[2016-03-17 11:01] LABS: ANISOCYTOSIS 1+; EOSINOPHILS # 0.1 10^3/ul (0.0-0.5); LYMPHOCYTES # 1.8 10^3/ul (0.8-2.9); MONOCYTE # 0.6 10^3/ul (0.3-0.9); MYELOCYTES # 0.1; NEUTROPHIL # 3.3 10^3/ul (1.6-7.5); POIKILOCYTOSIS 1+
[2016-03-17 11:02] LABS: OVALOCYTES OCCASIONAL; PLATELET ESTIMATE PLT APPEAR DECREASED; POLYCHROMASIA 1+
--- NOTE | 2016-03-17 12:00 | CONS ---
Date/Time of Note Date/Time of Note DATE: 03/17/16 TIME: 11:58 Assessment/Plan Assessment/Plan Additional Assessment/Plan Additional Assessment/Plan IMPRESSION: 1. End-stage renal disease. 2. Pneumonia with sepsis. 3. Abnormal LFT, rule out ischemic hepatitis.hepatitis panel negative,drug induce? 4. Anemia. 5. Macrocytosis. 6. End-stage renal disease on dialysis. 7. Status post pacemaker insertion. 8. 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 9.thrombocytopenia,Zosyn discontinued Plan monitor liver function continue present care Consultation Date/Type/Reason Admit Date/Time Mar 13, 2016 at 13:38 Initial Consult Date 03/15/16 Type of Consultation: Infectious Disease Referring Provider: BRENNA JENSEN 24 HR Interval Summary Constitutional: no complaints Exam/Review of Systems Vital Signs Vitals Vital Signs Date Time Temp Pulse Resp B/P Pulse Ox O2 Delivery O2 Flow Rate FiO2 03/17/16 09:50 70 18 98 Nasal Cannula 1.0 03/17/16 07:05 97.9 121/70 03/14/16 18:12 36 Intake and Output 03/16/16 03/16/16 03/17/16 14:59 22:59 06:59 Intake Total 605 ml 500 ml Output Total 0 ml 0 ml Balance 605 ml 500 ml Exam Constitutional: alert, oriented, well developed Psych: nl mood/affect, no complaints Head: atraumatic, normocephalic Eyes: EOMI, PERRL, nl conjunctiva, nl lids, nl sclera ENMT: nl external ears & nose, nl lips & teeth, nl nasal mucosa & septum Neck: non-tender, supple Respiratory: clear to auscultation, normal air movement Cardiovascular: nl pulses, regular rate and rhythm Gastrointestinal: nl liver, spleen, non-tender, soft Musculoskeletal: nl extremities to inspection, nl gait and stance Extremities: normal pulses Neurological: [employer] II-XII intact, nl mental status, nl speech, nl strength Skin: nl turgor, No rash or lesions Lymph: nl lymph nodes Results Result Diagram: 03/17/1619 03/17/1619 Results 24 hrs Laboratory Tests Test 03/17/16 06:19 Anion Gap 29 #H Anisocytosis 1+ Band Neutrophils % 17.0 H Blood Morphology Comment Blood Urea Nitrogen 44 #H Calcium Level 7.0 L Carbon Dioxide Level 20 L Chloride Level 101 Creatinine 4.93 #H Eosinophils # 0.1 Eosinophils % 1.0 Glucose Level 62 L Hematocrit 25.6 L Hemoglobin 8.5 L Lymphocytes # 1.8 Lymphocytes % 24.0 Macrocytosis 1+ Mean Corpuscular Hemoglobin 34.3 H Mean Corpuscular Hemoglobin Concent 33.3 Mean Corpuscular Volume 103.0 H Mean Platelet Volume 9.6 Monocytes # 0.6 Monocytes % 8.0 Myelocytes # 0.1 Myelocytes % 2.0 H Neutrophils # 3.3 Neutrophils % 44.0 Nucleated Red Blood Cells # Nucleated Red Blood Cells % 4.0 H Ovalocytes OCCASIONAL Platelet Count 29 #*L Platelet Estimate PLT APPEAR DECREASED Polychromasia 1+ Potassium Level 4.4 Reactive Lymphocytes % 4.0 Red Blood Count 2.48 L Red Cell Distribution Width 18.0 H Sodium Level 146 H White Blood Count 7.4 Medications Medications Current Medications Pantoprazole (Protonix Iv) 40 mg DAILY@06 IV Last administered on 03/17/16 06: 19; Admin Dose 40 MG; Start 03/14/16 at 06:00 Aspirin (Aspirin) 81 mg DAILY PO Last administered on 03/17/16 09:00; Admin Dose 81 MG; Start 03/14/16 at 09:00 Metoprolol Tartrate (Lopressor) 25 mg BID PO Last administered on 03/17/16 10: 19; Admin Dose 25 MG; Start 03/15/16 at 14:00 Lactobacillus Acidophilus/ Rhamnosus 1 cap 1 cap BID PO Last administered on 10:18; Admin Dose 1 CAP; Start 03/15/16 at 21:00 Meropenem 500 mg/ Sodium Chloride 100 ml @ 200 mls/hr Q12 IVPB Last administered on 03/17/16 09:00; Admin Dose 200 MLS/HR; Start 03/16/16 at 21:00 Azithromycin (Zithromax 500mg/ NS (Pmx)) 250 ml @ 250 mls/hr Q24H IVPB Last administered on 03/16/16 20:43; Admin Dose 250 MLS/HR; Start 03/16/16 at 20:00 ; Status Future Hold Morphine Sulfate (morphine) 2 mg Q6 PRN IV pain; Start 03/16/16 at 22:04 BREA KEN MD Mar 17, 2016 12:00
--- NOTE | 2016-03-17 12:37 | CONS ---
DATE OF ADMISSION: 03/13/2016 DATE OF CONSULTATION: TYPE OF CONSULTATION: Pulmonary. REASON FOR CONSULTATION: Shortness of breath. Thank you, Dr. Goldman, for this consultation. HISTORY OF PRESENT ILLNESS: This is an unfortunate 25-year-old lady seen by myself in the past with a history of end-stage renal failure on hemodialysis, followed by Dr. Ovidio Lake. She came in on 03/13/2016 with increasing shortness of breath, orthopnea, PND. Symptoms developed after dialysis. She had no fever, no chills, no chest pain or palpitations. On admission found to have bilateral patchy infiltrates with low grade fever requiring initiation of noninvasive positive pressure ventil ation. PAST MEDICAL HISTORY: Includes end-stage renal failure on hemodialysis, blindness secondary to reti nitis pigmentosa, history of chronic anemia, complete heart block with pacemaker in place. She has a right upper extremity AV fistula. ALLERGIES: 1. TYLENOL 2. CIPRO 3. HEPARIN. 4. LEVAQUIN. 5. POTASSIUM. SOCIAL HISTORY: Nonsmoker, no alcohol, no history of drug use. FAMILY HISTORY: Noncontributory. SYSTEMS REVIEW: A 12-point review of systems currently unable to perform. PHYSICAL EXAMINATION: GENERAL: Chronically ill appearing lady, comfortable at rest, no acute distress. VITAL SIGNS: Currently afebrile, pulse is 70, blood pressure 121/70, O2 saturation 96% on FIO2 of 1 liter. NECK: Supple. No JVD or lymphadenopathy. CARDIAC: S1, S2, no added sounds or murmurs. CHEST: Diminished air entry bilaterally. ABDOMEN: Soft, nontender. No guarding or rebound. EXTREMITIES: No cyanosis, clubbing, or edema. NEUROLOGIC: Grossly intact. No focal deficits. LABORATORY DATA: White count 7.4, hemoglobin 8.5, platelets of 29, BUN 44, creatinine 4.93. ABG: PaO2 was 473 with a bicarbonate of 10 on admission. Serum bicarbonate is now improved and is at 20. Chest x-ray was reviewed, showed improved pulmonary edema. IMPRESSION AND PLAN: 1. End-stage renal failure on hemodialysis. 2. Possible pulmonary edema with aspiration with a component of community-acquired pneumonia with s ubsequent hypoxemic respiratory failure. 3. Severe metabolic acidosis secondary to renal insufficiency. 4. Anemia of chronic disease. 5. Thrombocytopenia, possibly secondary to medications. PATIENT WILL NEED: 1. Continued hemodialysis with volume removal. 2. Aspiration precautions. 3. Continue broad-spectrum antibiotic coverage. 4. Consider hematology/oncology evaluation for thrombocytopenia. Dictated By: CAREN ALANIS/HEIDE Conf#: [id number] DID#: [id number]
--- NOTE | 2016-03-17 12:55 | CONS ---
Date/Time of Note Date/Time of Note DATE: 03/17/16 TIME: 12:52 Assessment/Plan Assessment/Plan Chief Complaint/Hosp Course IMPRESSION: 1. Positive troponin, assess significance in the setting of renal failure, respiratory distress.-Now downtrending 2. Permanent pacemaker, assess function. 3. Hypertension, borderline. 4. Respiratory distress. 5. End-stage renal disease on hemodialysis. 6. Anemia. 7. Thrombocytopenia-worsening 8. Increased liver function tests. 9. Anemia. 10. Wide comoplex tachycardia-?NSVT vs SVT with abberancy Recc: -Terle -serial ecg's -Hold asa given low platelet count -Incrase BB as tolerated to suppress further bouts of wide complex tachy -Consider low dose SQ heparin -Lexiscan stress test when stable off of precautions -HD for volume removal -Continue tamiflu/bronchodilators Problems: Consultation Date/Type/Reason Admit Date/Time Mar 13, 2016 at 13:38 Initial Consult Date 03/14/16 Type of Consultation: Cardiology Reason for Consultation positive troponin/WCT Referring Provider: BRENNA JENSEN Exam/Review of Systems Vital Signs Vitals Vital Signs Date Time Temp Pulse Resp B/P Pulse Ox O2 Delivery O2 Flow Rate FiO2 03/17/16 12:20 70 03/17/16 09:50 18 98 Nasal Cannula 1.0 03/17/16 07:05 97.9 121/70 03/14/16 18:12 36 Intake and Output 03/16/16 03/16/16 03/17/16 15:00 23:00 07:00 Intake Total 605 ml 500 ml Output Total 0 ml 0 ml Balance 605 ml 500 ml Exam Review of Systems: CONSTITUTIONAL: No fevers, chills. PULMONARY: mild sob CARDIOVASCULAR: No chest pain/palpitations GASTROINTESTINAL: No nausea/vomiting. GENITOURINARY: No hematuria/dysuria. MUSCULOSKELETAL: No myagias/arthalgias. PSYCHIATRIC: The patient denies depression. NEUROLOGIC: No weakness Constitutional: alert Psych: no complaints Head: normocephalic ENMT: mucosa pink and moist Neck: jvd (9 cm water), supple Respiratory: diminished breath sounds (at bases/B) Cardiovascular: regular rate and rhythm Gastrointestinal: non-tender, soft Musculoskeletal: muscle tone (normal) Extremities: edema (none) Results Result Diagram: 03/17/1661803/17/16 0619 Results 24 hrs Laboratory Tests Test 03/17/16 06:19 Anion Gap 29 #H Anisocytosis 1+ Band Neutrophils % 17.0 H Blood Morphology Comment Blood Urea Nitrogen 44 #H Calcium Level 7.0 L Carbon Dioxide Level 20 L Chloride Level 101 Creatinine 4.93 #H Eosinophils # 0.1 Eosinophils % 1.0 Glucose Level 62 L Hematocrit 25.6 L Hemoglobin 8.5 L Lymphocytes # 1.8 Lymphocytes % 24.0 Macrocytosis 1+ Mean Corpuscular Hemoglobin 34.3 H Mean Corpuscular Hemoglobin Concent 33.3 Mean Corpuscular Volume 103.0 H Mean Platelet Volume 9.6 Monocytes # 0.6 Monocytes % 8.0 Myelocytes # 0.1 Myelocytes % 2.0 H Neutrophils # 3.3 Neutrophils % 44.0 Nucleated Red Blood Cells # Nucleated Red Blood Cells % 4.0 H Ovalocytes OCCASIONAL Platelet Count 29 #*L Platelet Estimate PLT APPEAR DECREASED Polychromasia 1+ Potassium Level 4.4 Reactive Lymphocytes % 4.0 Red Blood Count 2.48 L Red Cell Distribution Width 18.0 H Sodium Level 146 H White Blood Count 7.4 Medications Medications Current Medications Pantoprazole (Protonix Iv) 40 mg DAILY@06 IV Last administered on 03/17/16 06: 19; Admin Dose 40 MG; Start 03/14/16 at 06:00 Aspirin (Aspirin) 81 mg DAILY PO Last administered on 03/17/16 09:00; Admin Dose 81 MG; Start 03/14/16 at 09:00 Metoprolol Tartrate (Lopressor) 25 mg BID PO Last administered on 03/17/16 10: 19; Admin Dose 25 MG; Start 03/15/16 at 14:00 Lactobacillus Acidophilus/ Rhamnosus 1 cap 1 cap BID PO Last administered on 10:18; Admin Dose 1 CAP; Start 03/15/16 at 21:00 Meropenem/Sodium Chloride (Merrem/NS) 100 ml @ 200 mls/hr Q12 IVPB Last administered on 03/17/16 09:00; Admin Dose 200 MLS/HR; Start 03/16/16 at 21:00 Morphine Sulfate (morphine) 2 mg Q6 PRN IV pain; Start 03/16/16 at 22:04 HOOD CANALES Mar 17, 2016 12:55
[2016-03-17 13:31] LABS: ALBUMIN 3.3 g/dl (3.3-4.9)
[2016-03-17 13:33] LABS: BILIRUBIN,INDIRECT 0.5 mg/dl (0-1.1); BILIRUBIN,TOTAL 0.5 mg/dl (0.2-1.3); CREATININE 2.43 mg/dl (0.44-1.00)
[2016-03-17 13:34] LABS: ALBUMIN/GLOBULIN RATIO 1.06; CALCIUM 7.4 mg/dl (8.4-10.2); TOTAL PROTEIN 6.4 g/dl (6.1-8.1)
[2016-03-17 14:39] LABS: INR 1.08; PT RATIO 1.1
[2016-03-17] MEDS ORDERED: [UNRECOGNIZED DRUG - OTHER] XX SCH (15:00)
--- NOTE | 2016-03-17 16:01 | PN ---
Date/Time of Note Date/Time of Note DATE: 03/17/16 TIME: 15:58 Assessment/Plan VTE Prophylaxis VTE Prophylaxis Intervention: other Lines/Catheters [facility] Sal[facility] Lock Urinary Cath still in place: No Assessment/Plan Assessment/Plan 1. Multilobar pneumonia. - pet Dr. Glvoer- infection disease consultation. - Continue vancomycin and Zosyn. 2. Influenza A, continue Tamiflu. - droplet precautions 3. Acute respiratory distress, resolving. Continue oxygen supplementation and bronchodilators. - per Dr. Reed in pulmonology consultation. 2. End-stage renal disease, hemodialysis dependent. - per Dr. Lake in nephrology consultation. - HD today 3. Positive troponin. - per Dr Red in cardiology consultation. - Continue aspirin. 4. Permanent pacemaker. 5. Hypertension, currently patient is normotensive. 6. Anemia of chronic disease. 7. Legally blind. 8. Thrombocytopenia. - Hematology consult appreciated- notified 9. Pulmonary edema. Continue remove fluids with hemodialysis. 10. Elevated Liver Functions - GI consult appreciated- Dr Herrera notified Continue Protonix for peptic ulcer disease prophylaxis. Further recommendations based on clinical course. Plan of care discussed with Dr. Goldman. Subjective 24 Hr Interval Summary Free Text/Dictation NAD, Had HD today.dw staff. Constitutional: requiring O2 Eyes: no complaints ENT: no complaints Respiratory: shortness of breath (on exertion) Cardiovascular: no complaints Gastrointestinal: no complaints Skin: bruising Exam/Review of Systems Vital Signs Vitals Vital Signs Date Time Temp Pulse Resp B/P Pulse Ox O2 Delivery O2 Flow Rate FiO2 03/17/16 15:47 97.5 70 20 116/72 99 03/17/16 13:29 1.0 03/17/16 09:50 Nasal Cannula 03/14/16 18:12 36 Intake and Output 03/16/16 03/16/16 03/17/16 15:00 23:00 07:00 Intake Total 605 ml 500 ml Output Total 0 ml 0 ml Balance 605 ml 500 ml Exam Constitutional: alert, oriented Psych: nl mood/affect Eyes: nl sclera ENMT: nl external ears & nose Neck: non-tender Respiratory: diminished breath sounds Cardiovascular: regular rate and rhythm Gastrointestinal: non-tender, soft Musculoskeletal: nl extremities to inspection Extremities: normal pulses Neurological: nl speech Skin: other Lymph: nontender Results Result Diagram: 1/14/17 0619 03/17/16 1300 Results 24 hrs Laboratory Tests Test 03/17/16 06:19 03/17/16 13:00 Anion Gap 29 #H 20 #H Anisocytosis 1+ Band Neutrophils % 17.0 H Blood Morphology Comment Blood Urea Nitrogen 44 #H 24 #H Calcium Level 7.0 L 7.4 L Carbon Dioxide Level 20 L 27 Chloride Level 101 96 L Creatinine 4.93 #H 2.43 #H Eosinophils # 0.1 Eosinophils % 1.0 Glucose Level 62 L 130 # Hematocrit 25.6 L Hemoglobin 8.5 L Lymphocytes # 1.8 Lymphocytes % 24.0 Macrocytosis 1+ Mean Corpuscular Hemoglobin 34.3 H Mean Corpuscular Hemoglobin Concent 33.3 Mean Corpuscular Volume 103.0 H Mean Platelet Volume 9.6 Monocytes # 0.6 Monocytes % 8.0 Myelocytes # 0.1 Myelocytes % 2.0 H Neutrophils # 3.3 Neutrophils % 44.0 Nucleated Red Blood Cells # Nucleated Red Blood Cells % 4.0 H Ovalocytes OCCASIONAL Platelet Count 29 #*L Platelet Estimate PLT APPEAR DECREASED Polychromasia 1+ Potassium Level 4.4 4.0 Reactive Lymphocytes % 4.0 Red Blood Count 2.48 L Red Cell Distribution Width 18.0 H Sodium Level 146 H 139 White Blood Count 7.4 Alanine Aminotransferase (ALT/SGPT) 1356 H Albumin 3.3 Albumin/Globulin Ratio 1.06 Alkaline Phosphatase 203 H Aspartate Amino Transf (AST/SGOT) 1298 H Direct Bilirubin 0.00 Globulin 3.10 INR International Normalized Ratio 1.08 Indirect Bilirubin 0.5 Magnesium Level 2.1 Prothrombin Time 14.0 Prothrombin Time Ratio 1.1 Total Bilirubin 0.5 Total Protein 6.4 Medications Medications Current Medications Pantoprazole (Protonix Iv) 40 mg DAILY@06 IV Last administered on 03/17/16 06: 19; Admin Dose 40 MG; Start 03/14/16 at 06:00 Aspirin (Aspirin) 81 mg DAILY PO Last administered on 03/17/16 09:00; Admin Dose 81 MG; Start 03/14/16 at 09:00 Lactobacillus Acidophilus/ Rhamnosus (Culturelle) 1 cap BID PO Last administered on 03/17/16 10:18; Admin Dose 1 CAP; Start 03/15/16 at 21:00 Morphine Sulfate (morphine) 2 mg Q6 PRN IV pain; Start 03/16/16 at 22:04 Metoprolol Tartrate 50 mg 50 mg BID PO ; Start 03/17/16 at 21:00 Meropenem/Sodium Chloride (Merrem/NS) 100 ml @ 200 mls/hr DAILY IVPB ; Start at 09:00 Miscellaneous Information (*Order Clarification Bulletin) GIVE TAMIFLU 30 MG AF... Q8H XX ; Start 03/17/16 at 15:00; Stop 03/17/16 at 23:59 MADY CAMP Mar 17, 2016 16:01
[2016-03-17] MEDS: OSELTAMIVIR 30 MG CAP PO SCH (16:25)
--- NOTE | 2016-03-17 18:58 | CONS ---
Date/Time of Note Date/Time of Note DATE: 03/17/16 TIME: 18:56 Assessment/Plan Assessment/Plan Chief Complaint/Hosp Course IMPRESSION: 1. Patient has acute hypoxic respiratory failure, lung infiltrate.better 2. Pulmonary edema, rule out ischemic heart disease.better 3. End-stage renal disease. 4. Hypertension. 5. Anemia. 6. Retinitis pigmentosa. 7. Lactic acidosis.better 8. Positive troponin. 9 sirs 10 nstemi plan hd per id Problems: Consultation Date/Type/Reason Admit Date/Time Mar 13, 2016 at 13:38 Initial Consult Date 03/14/16 Type of Consultation: renal Referring Provider: BRENNA JENSEN 24 HR Interval Summary Constitutional: no complaints Exam/Review of Systems Vital Signs Vitals Vital Signs Date Time Temp Pulse Resp B/P Pulse Ox O2 Delivery O2 Flow Rate FiO2 03/17/16 17:11 70 03/17/16 15:47 97.5 20 116/72 99 03/17/16 13:29 1.0 03/17/16 09:50 Nasal Cannula 03/14/16 18:12 36 Intake and Output 03/16/16 03/16/16 03/17/16 15:00 23:00 07:00 Intake Total 605 ml 500 ml Output Total 0 ml 0 ml Balance 605 ml 500 ml Exam Neck: supple Respiratory: clear to auscultation Cardiovascular: regular rate and rhythm Gastrointestinal: soft Musculoskeletal: nl extremities to inspection Extremities: normal pulses Results Result Diagram: 03/17/16 0619 03/17/16 1300 Results 24 hrs Laboratory Tests Test 03/17/16 06:19 03/17/16 13:00 Anion Gap 29 #H 20 #H Anisocytosis 1+ Band Neutrophils % 17.0 H Blood Morphology Comment Blood Urea Nitrogen 44 #H 24 #H Calcium Level 7.0 L 7.4 L Carbon Dioxide Level 20 L 27 Chloride Level 101 96 L Creatinine 4.93 #H 2.43 #H Eosinophils # 0.1 Eosinophils % 1.0 Glucose Level 62 L 130 # Hematocrit 25.6 L Hemoglobin 8.5 L Lymphocytes # 1.8 Lymphocytes % 24.0 Macrocytosis 1+ Mean Corpuscular Hemoglobin 34.3 H Mean Corpuscular Hemoglobin Concent 33.3 Mean Corpuscular Volume 103.0 H Mean Platelet Volume 9.6 Monocytes # 0.6 Monocytes % 8.0 Myelocytes # 0.1 Myelocytes % 2.0 H Neutrophils # 3.3 Neutrophils % 44.0 Nucleated Red Blood Cells # Nucleated Red Blood Cells % 4.0 H Ovalocytes OCCASIONAL Platelet Count 29 #*L Platelet Estimate PLT APPEAR DECREASED Polychromasia 1+ Potassium Level 4.4 4.0 Reactive Lymphocytes % 4.0 Red Blood Count 2.48 L Red Cell Distribution Width 18.0 H Sodium Level 146 H 139 White Blood Count 7.4 Alanine Aminotransferase (ALT/SGPT) 1356 H Albumin 3.3 Albumin/Globulin Ratio 1.06 Alkaline Phosphatase 203 H Aspartate Amino Transf (AST/SGOT) 1298 H Direct Bilirubin 0.00 Globulin 3.10 INR International Normalized Ratio 1.08 Indirect Bilirubin 0.5 Magnesium Level 2.1 Prothrombin Time 14.0 Prothrombin Time Ratio 1.1 Total Bilirubin 0.5 Total Protein 6.4 Medications Medications Current Medications Pantoprazole (Protonix Iv) 40 mg DAILY@06 IV Last administered on 03/17/16 06: 19; Admin Dose 40 MG; Start 03/14/16 at 06:00 Aspirin (Aspirin) 81 mg DAILY PO Last administered on 03/17/16 09:00; Admin Dose 81 MG; Start 03/14/16 at 09:00 Lactobacillus Acidophilus/ Rhamnosus (Culturelle) 1 cap BID PO Last administered on 03/17/16 10:18; Admin Dose 1 CAP; Start 03/15/16 at 21:00 Morphine Sulfate (morphine) 2 mg Q6 PRN IV pain; Start 03/16/16 at 22:04 Metoprolol Tartrate 50 mg 50 mg BID PO ; Start 03/17/16 at 21:00 Meropenem/Sodium Chloride (Merrem/NS) 100 ml @ 200 mls/hr DAILY IVPB ; Start at 09:00 Miscellaneous Information (*Order Clarification Bulletin) GIVE TAMIFLU 30 MG AF... Q8H XX ; Start 03/17/16 at 15:00; Stop 03/17/16 at 23:59 DALLAS CABRAL MD Mar 17, 2016 18:58
[2016-03-17] MEDS ORDERED: OSELTAMIVIR 30 MG CAP PO ONE (21:30)
[2016-03-18] VITALS (12 sets, daily range): BP systolic 96–128; BP diastolic 55–70; PULSE 70; RESP 18–20
[2016-03-18] MEDS: LEVALBUTEROL (NEB) 0.63 MG/3 ML AMP HHN SCH ×4 (01:51→19:12)
[2016-03-18] MEDS: PANTOPRAZOLE 40 MG INJ IV SCH (06:14)
[2016-03-18 07:16] LABS: BASOPHIL # 0.1 10^3/ul (0.0-0.1); BASOPHILS % 0.7 % (0.0-2.0); EOSINOPHILS # 0.9 10^3/ul (0.0-0.5); EOSINOPHILS % 11.5 % (0.0-7.0); HEMATOCRIT 25.9 % (37.0-47.0); HEMOGLOBIN 8.7 g/dl (12.0-16.0); LYMPHOCYTES # 2.3 10^3/ul (0.8-2.9); LYMPHOCYTES % 28.1 % (15.0-51.0); MEAN CORPUSCULAR HEMOGLOBIN 34.8 pg (29.0-33.0); MEAN CORPUSCULAR HGB CONC 33.8 g/dl (32.0-37.0); MEAN PLATELET VOLUME 10.2 fl (7.4-10.4); MONOCYTE # 0.7 10^3/ul (0.3-0.9); NEUTROPHIL # 4.1 10^3/ul (1.6-7.5); NEUTROPHILS % 50.7 % (39.0-77.0); PLATELET COUNT 38 10^3/UL (140-440); RED BLOOD COUNT 2.51 10^6/ul (4.20-5.40); RED CELL DISTRIBUTION WIDTH 17.8 % (11.5-14.5); UNCORRECTED WBC 8.1 10^3/ul (4.8-10.8); WHITE BLOOD COUNT 8.1 10^3/ul (4.8-10.8)
[2016-03-18 07:34] LABS: CONDITION 1; LH ANALYZER COMMENTS 1
[2016-03-18 07:42] LABS: POTASSIUM 3.5 mmol/L (3.5-5.1)
[2016-03-18 07:45] LABS: CALCIUM 6.9 mg/dl (8.4-10.2); CREATININE 2.91 mg/dl (0.44-1.00)
[2016-03-18 08:21] LABS: CK-MB 20.7 ng/ml (0.0-2.4)
--- NOTE | 2016-03-18 08:21 | CONS ---
Date/Time of Note Date/Time of Note DATE: 03/18/16 TIME: 08:20 Assessment/Plan Assessment/Plan Additional Assessment/Plan Additional Assessment/Plan IMPRESSION: 1. End-stage renal disease. 2. Pneumonia with sepsis. 3. Abnormal LFT, rule out ischemic hepatitis.hepatitis panel negative,drug induce?slowly coming down 4. Anemia. 5. Macrocytosis. 6. End-stage renal disease on dialysis. 7. Status post pacemaker insertion. 8. 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 9.thrombocytopenia,Zosyn discontinued Plan monitor liver function continue present care DELANEY, anti smooth muscle antibody Consultation Date/Type/Reason Admit Date/Time Mar 13, 2016 at 13:38 Initial Consult Date 03/15/16 Type of Consultation: renal Referring Provider: BRENAN JENSEN 24 HR Interval Summary Constitutional: no complaints Exam/Review of Systems Vital Signs Vitals Vital Signs Date Time Temp Pulse Resp B/P Pulse Ox O2 Delivery O2 Flow Rate FiO2 03/18/16 04:21 70 03/18/16 04:00 98.6 18 96/59 100 03/18/16 01:53 1.0 03/18/16 01:53 Nasal Cannula 03/14/16 18:12 36 Intake and Output 03/17/16 03/17/16 03/18/16 15:00 23:00 07:00 Intake Total 1220 ml 300 ml Output Total 1500 ml 0 ml Balance -280 ml 300 ml Exam Constitutional: alert, oriented, well developed Psych: nl mood/affect, no complaints Head: atraumatic, normocephalic Eyes: EOMI, PERRL, nl conjunctiva, nl lids, nl sclera ENMT: nl external ears & nose, nl lips & teeth, nl nasal mucosa & septum Neck: non-tender, supple Respiratory: clear to auscultation, normal air movement Cardiovascular: nl pulses, regular rate and rhythm Gastrointestinal: nl liver, spleen, non-tender, soft Musculoskeletal: nl extremities to inspection, nl gait and stance Extremities: normal pulses 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, nl mental status, nl speech, nl strength Skin: nl turgor, No rash or lesions Lymph: nl lymph nodes Results Result Diagram: 03/18/16 0640 03/18/16 0640 Results 24 hrs Laboratory Tests Test 03/17/16 13:00 03/18/16 06:40 Alanine Aminotransferase (ALT/SGPT) 1356 H Albumin 3.3 Albumin/Globulin Ratio 1.06 Alkaline Phosphatase 203 H Anion Gap 20 #H 22 H Aspartate Amino Transf (AST/SGOT) 1298 H Blood Urea Nitrogen 24 #H 25 H Calcium Level 7.4 L 6.9 L Carbon Dioxide Level 27 26 Chloride Level 96 L 93 L Creatinine 2.43 #H 2.91 H Direct Bilirubin 0.00 Globulin 3.10 Glucose Level 130 # 76 # INR International Normalized Ratio 1.08 Indirect Bilirubin 0.5 Magnesium Level 2.1 Potassium Level 4.0 3.5 Prothrombin Time 14.0 Prothrombin Time Ratio 1.1 Sodium Level 139 137 Total Bilirubin 0.5 Total Protein 6.4 Basophils # 0.1 Basophils % 0.7 Blood Morphology Comment Creatine Kinase 590 H Creatine Kinase Index Pending Creatinine Kinase MB (Mass) Pending Eosinophils # 0.9 H Eosinophils % 11.5 H Hematocrit 25.9 L Hemoglobin 8.7 L Lymphocytes # 2.3 Lymphocytes % 28.1 Mean Corpuscular Hemoglobin 34.8 H Mean Corpuscular Hemoglobin Concent 33.8 Mean Corpuscular Volume 103.0 H Mean Platelet Volume 10.2 Monocytes # 0.7 Monocytes % 9.0 Neutrophils # 4.1 Neutrophils % 50.7 Nucleated Red Blood Cells # 0.0 Nucleated Red Blood Cells % 0.0 Platelet Count 38 #L Red Blood Count 2.51 L Red Cell Distribution Width 17.8 H Troponin I Pending White Blood Count 8.1 Medications Medications Current Medications Pantoprazole (Protonix Iv) 40 mg DAILY@06 IV Last administered on 03/18/16 06: 14; Admin Dose 40 MG; Start 03/14/16 at 06:00 Aspirin (Aspirin) 81 mg DAILY PO Last administered on 03/17/16 09:00; Admin Dose 81 MG; Start 03/14/16 at 09:00 Lactobacillus Acidophilus/ Rhamnosus (Culturelle) 1 cap BID PO Last administered on 03/17/16 10:18; Admin Dose 1 CAP; Start 03/15/16 at 21:00 Morphine Sulfate (morphine) 2 mg Q6 PRN IV pain; Start 03/16/16 at 22:04 Metoprolol Tartrate 50 mg 50 mg BID PO ; Start 03/17/16 at 21:00 Meropenem/Sodium Chloride (Merrem/NS) 100 ml @ 200 mls/hr DAILY IVPB ; Start at 09:00 BREA KEN MD Mar 18, 2016 08:21
[2016-03-18 08:26] LABS: TROPONIN-I 0.448 ng/ml (0.00-0.12)
[2016-03-18] MEDS: MEROPENEM 500 MG in SOD CHLORIDE 0.9% 100 ML IVPB SCH (09:00)
[2016-03-18] MEDS: METOPROLOL 25 MG TAB PO SCH ×2 (09:00→20:27)
[2016-03-18] MEDS: ASPIRIN 81 MG TAB PO SCH (10:15)
[2016-03-18] MEDS: LACTOBACILLUS RHAMNOSUS CAP PO SCH ×2 (10:15→20:24)
--- NOTE | 2016-03-18 12:08 | CONS ---
Date/Time of Note Date/Time of Note DATE: 03/18/16 TIME: 12:06 Assessment/Plan Assessment/Plan Chief Complaint/Hosp Course assessment/impression: - influenza A bronchitis - on tamiflu - possibly concurrent HCAP, multi-lobar - sputum cx grew normal respiratory alexandra; on meropenem - pulmonary edema - lactic acidosis - thrombocytopenia, possibly induced by pip/tazo (pip/tazo dc'd 03/16) - transaminitis, possibly shock liver - ESRD on HD via AVG on RUE, being worked up for renal transplant at [facility] - anemia of ESRD - b/l blindness from retinitis pigmentosa. - positive troponin on admission in setting of resp distress and chronic renal failure - NSVT - Hx CHB s/p PPM - S/p Vanco (03/13-03/15) and pip/tazo (03/14-03/16) Recommendations: - continue oseltamivir (03/13/16-) to finish 03.23.16 - continue meropenem (03/16/16-) through 03.21.16 - probiotics - trend platelet count; appreciate Hematology input - appreciate GI eval for transaminitis Problems: Consultation Date/Type/Reason Admit Date/Time Mar 13, 2016 at 13:38 Initial Consult Date 03/14/16 Type of Consultation: id Referring Provider: BRENNA JENSEN Exam/Review of Systems Vital Signs Vitals Vital Signs Date Time Temp Pulse Resp B/P Pulse Ox O2 Delivery O2 Flow Rate FiO2 03/18/16 11:30 97.9 70 20 105/55 90 03/18/16 08:23 Nasal Cannula 1.0 03/14/16 18:12 36 Intake and Output 03/17/16 03/17/16 03/18/16 15:00 23:00 07:00 Intake Total 1220 ml 300 ml Output Total 1500 ml 0 ml Balance -280 ml 300 ml Exam Constitutional: alert, oriented, well developed Psych: nl mood/affect, no complaints Head: atraumatic, normocephalic ENMT: nl external ears & nose, nl lips & teeth, nl nasal mucosa & septum Respiratory: clear to auscultation Cardiovascular: regular rate and rhythm Gastrointestinal: non-tender, soft Results Result Diagram: 03/18/16 0640 03/18/16 0640 Results 24 hrs Laboratory Tests Test 03/17/16 13:00 03/18/16 06:40 Alanine Aminotransferase (ALT/SGPT) 1356 H Albumin 3.3 Albumin/Globulin Ratio 1.06 Alkaline Phosphatase 203 H Anion Gap 20 #H 22 H Aspartate Amino Transf (AST/SGOT) 1298 H Blood Urea Nitrogen 24 #H 25 H Calcium Level 7.4 L 6.9 L Carbon Dioxide Level 27 26 Chloride Level 96 L 93 L Creatinine 2.43 #H 2.91 H Direct Bilirubin 0.00 Globulin 3.10 Glucose Level 130 # 76 # INR International Normalized Ratio 1.08 Indirect Bilirubin 0.5 Magnesium Level 2.1 Potassium Level 4.0 3.5 Prothrombin Time 14.0 Prothrombin Time Ratio 1.1 Sodium Level 139 137 Total Bilirubin 0.5 Total Protein 6.4 Basophils # 0.1 Basophils % 0.7 Blood Morphology Comment Creatine Kinase 590 H Creatine Kinase Index 3.5 Creatinine Kinase MB (Mass) 20.70 H Eosinophils # 0.9 H Eosinophils % 11.5 H Hematocrit 25.9 L Hemoglobin 8.7 L Lymphocytes # 2.3 Lymphocytes % 28.1 Mean Corpuscular Hemoglobin 34.8 H Mean Corpuscular Hemoglobin Concent 33.8 Mean Corpuscular Volume 103.0 H Mean Platelet Volume 10.2 Monocytes # 0.7 Monocytes % 9.0 Neutrophils # 4.1 Neutrophils % 50.7 Nucleated Red Blood Cells # 0.0 Nucleated Red Blood Cells % 0.0 Platelet Count 38 #L Red Blood Count 2.51 L Red Cell Distribution Width 17.8 H Troponin I 0.448 *H White Blood Count 8.1 Medications Medications Current Medications Pantoprazole (Protonix Iv) 40 mg DAILY@06 IV Last administered on 03/18/16 06: 14; Admin Dose 40 MG; Start 03/14/16 at 06:00 Aspirin (Aspirin) 81 mg DAILY PO Last administered on 03/18/16 10:15; Admin Dose 81 MG; Start 03/14/16 at 09:00 Lactobacillus Acidophilus/ Rhamnosus (Culturelle) 1 cap BID PO Last administered on 03/18/16 10:15; Admin Dose 1 CAP; Start 03/15/16 at 21:00 Morphine Sulfate (morphine) 2 mg Q6 PRN IV pain; Start 03/16/16 at 22:04 Metoprolol Tartrate 50 mg 50 mg BID PO ; Start 03/17/16 at 21:00 Meropenem/Sodium Chloride (Merrem/NS) 100 ml @ 200 mls/hr DAILY IVPB Last administered on 03/18/16t 09:00; Admin Dose 200 MLS/HR; Start 03/18/16 at 09:00 NAVEEN XIE MD Mar 18, 2016 12:08
--- NOTE | 2016-03-18 14:29 | CONS ---
Date/Time of Note Date/Time of Note DATE: 03/18/16 TIME: 14:26 Assessment/Plan Assessment/Plan Chief Complaint/Hosp Course IMPRESSION: 1. Positive troponin, assess significance in the setting of renal failure, respiratory distress.-Now downtrending 2. Permanent pacemaker, assess function. 3. Hypertension, borderline. 4. Respiratory distress. 5. End-stage renal disease on hemodialysis. 6. Anemia. 7. Thrombocytopenia-worsening 8. Increased liver function tests. 9. Anemia. 10. Wide comoplex tachycardia-?NSVT vs SVT with abberancy Recc: -Terle -serial ecg's -Hold asa given low platelet count -decrease BB to allow patient to better tolerate -Consider low dose SQ heparin -Lexiscan stress test when stable off of precautions -HD for volume removal -Continue tamiflu/bronchodilators Problems: Consultation Date/Type/Reason Admit Date/Time Mar 13, 2016 at 13:38 Initial Consult Date 03/14/16 Type of Consultation: Cardiology Reason for Consultation positive troponin Referring Provider: BRENNA JENSEN Exam/Review of Systems Vital Signs Vitals Vital Signs Date Time Temp Pulse Resp B/P Pulse Ox O2 Delivery O2 Flow Rate FiO2 03/18/16 12:13 70 03/18/16 11:30 97.9 20 105/55 90 03/18/16 08:23 Nasal Cannula 1.0 03/14/16 18:12 36 Intake and Output 03/17/16 03/17/16 03/18/16 15:00 23:00 07:00 Intake Total 1220 ml 300 ml Output Total 1500 ml 0 ml Balance -280 ml 300 ml Exam Review of Systems: CONSTITUTIONAL: No fevers, chills. PULMONARY: No sob CARDIOVASCULAR: No chest pain/palpitations GASTROINTESTINAL: No nausea/vomiting. GENITOURINARY: No hematuria/dysuria. MUSCULOSKELETAL: No myagias/arthalgias. PSYCHIATRIC: The patient denies depression. NEUROLOGIC: No weakness Constitutional: alert, oriented Psych: no complaints ENMT: mucosa pink and moist Neck: supple Respiratory: diminished breath sounds (at bases/B) Cardiovascular: regular rate and rhythm Gastrointestinal: non-tender, soft Musculoskeletal: muscle tone (normal) Extremities: edema (trace) Neurological: other (No focal deficits) Results Result Diagram: 03/18/16 0640 03/18/16 0640 Results 24 hrs Laboratory Tests Test 03/18/16 06:40 Anion Gap 22 H Basophils # 0.1 Basophils % 0.7 Blood Morphology Comment Blood Urea Nitrogen 25 H Calcium Level 6.9 L Carbon Dioxide Level 26 Chloride Level 93 L Creatine Kinase 590 H Creatine Kinase Index 3.5 Creatinine 2.91 H Creatinine Kinase MB (Mass) 20.70 H Eosinophils # 0.9 H Eosinophils % 11.5 H Glucose Level 76 # Hematocrit 25.9 L Hemoglobin 8.7 L Lymphocytes # 2.3 Lymphocytes % 28.1 Mean Corpuscular Hemoglobin 34.8 H Mean Corpuscular Hemoglobin Concent 33.8 Mean Corpuscular Volume 103.0 H Mean Platelet Volume 10.2 Monocytes # 0.7 Monocytes % 9.0 Neutrophils # 4.1 Neutrophils % 50.7 Nucleated Red Blood Cells # 0.0 Nucleated Red Blood Cells % 0.0 Platelet Count 38 #L Potassium Level 3.5 Red Blood Count 2.51 L Red Cell Distribution Width 17.8 H Sodium Level 137 Troponin I 0.448 *H White Blood Count 8.1 Medications Medications Current Medications Pantoprazole (Protonix Iv) 40 mg DAILY@06 IV Last administered on 03/18/16 06: 14; Admin Dose 40 MG; Start 03/14/16 at 06:00 Aspirin (Aspirin) 81 mg DAILY PO Last administered on 03/18/16 10:15; Admin Dose 81 MG; Start 03/14/16 at 09:00 Lactobacillus Acidophilus/ Rhamnosus (Culturelle) 1 cap BID PO Last administered on 03/18/16 10:15; Admin Dose 1 CAP; Start 03/15/16 at 21:00 Morphine Sulfate (morphine) 2 mg Q6 PRN IV pain; Start 03/16/16 at 22:04 Metoprolol Tartrate 50 mg 50 mg BID PO ; Start 03/17/16 at 21:00 Meropenem/Sodium Chloride (Merrem/NS) 100 ml @ 200 mls/hr DAILY IVPB Last administered on 03/18/16 09:00; Admin Dose 200 MLS/HR; Start 03/18/16 at 09:00 HOOD CANALES Mar 18, 2016 14:29
--- NOTE | 2016-03-18 14:41 | PN ---
Date/Time of Note Date/Time of Note DATE: 03/18/16 TIME: 14:37 Assessment/Plan VTE Prophylaxis VTE Prophylaxis Intervention: SCD's Lines/Catheters IV [facility]ter Type (from [facility] Central Line Urinary Cath still in place: No Assessment/Plan Assessment/Plan 1. Positive troponin, assess significance in the setting of renal failure, respiratory distress.-Now downtrending - per cardiolgy - Continue aspirin. 2. Multilobar pneumonia. - pet Dr. Menonasaki- infection disease consultation. - Continue vancomycin and Zosyn. 3 Influenza A, continue Tamiflu. - droplet precautions 4. Acute respiratory distress, resolving. Continue oxygen supplementation and bronchodilators. - per Dr. Reed in pulmonology consultation. 5. End-stage renal disease, hemodialysis dependent. - per Dr. Lake in nephrology consultation. - HD today 6. Permanent pacemaker. 7. Hypertension, currently patient is normotensive. 8. Anemia of chronic disease. 9. Legally blind. 10. Thrombocytopenia. - Hematology consult appreciated- notified 11. Pulmonary edema. Continue remove fluids with hemodialysis. 12. Elevated Liver Functions - GI consult appreciated- Dr Herrera notified Continue Protonix for peptic ulcer disease prophylaxis. Further recommendations based on clinical course. Plan of care discussed with Dr. Goldman. Subjective 24 Hr Interval Summary Constitutional: requiring IVF, requiring O2 ENT: no complaints Respiratory: cough, shortness of breath Cardiovascular: no complaints Gastrointestinal: no complaints Genitourinary: no complaints Musculoskeletal: no complaints Skin: no complaints Neurologic: no complaints Endocrine: no complaints Lymphatic: no complaints Psychological: no complaints Immunologic: no complaints Exam/Review of Systems Vital Signs Vitals Vital Signs Date Time Temp Pulse Resp B/P Pulse Ox O2 Delivery O2 Flow Rate FiO2 03/18/16 12:13 70 03/18/16 11:30 97.9 20 105/55 90 03/18/16 08:23 Nasal Cannula 1.0 03/14/16 18:12 36 Intake and Output 03/17/16 03/17/16 03/18/16 15:00 23:00 07:00 Intake Total 1220 ml 300 ml Output Total 1500 ml 0 ml Balance -280 ml 300 ml Exam Constitutional: alert, frail Psych: nl mood/affect Head: atraumatic Eyes: EOMI, PERRL, nl sclera ENMT: nl external ears & nose Neck: non-tender Respiratory: diminished breath sounds Cardiovascular: nl pulses Gastrointestinal: non-tender, soft Musculoskeletal: nl extremities to inspection Neurological: nl mental status, nl speech Skin: nl turgor Lymph: nontender Results Result Diagram: 03/18/16 0640 03/18/16 0640 Results 24 hrs Laboratory Tests Test 03/18/16 06:40 Anion Gap 22 H Basophils # 0.1 Basophils % 0.7 Blood Morphology Comment Blood Urea Nitrogen 25 H Calcium Level 6.9 L Carbon Dioxide Level 26 Chloride Level 93 L Creatine Kinase 590 H Creatine Kinase Index 3.5 Creatinine 2.91 H Creatinine Kinase MB (Mass) 20.70 H Eosinophils # 0.9 H Eosinophils % 11.5 H Glucose Level 76 # Hematocrit 25.9 L Hemoglobin 8.7 L Lymphocytes # 2.3 Lymphocytes % 28.1 Mean Corpuscular Hemoglobin 34.8 H Mean Corpuscular Hemoglobin Concent 33.8 Mean Corpuscular Volume 103.0 H Mean Platelet Volume 10.2 Monocytes # 0.7 Monocytes % 9.0 Neutrophils # 4.1 Neutrophils % 50.7 Nucleated Red Blood Cells # 0.0 Nucleated Red Blood Cells % 0.0 Platelet Count 38 #L Potassium Level 3.5 Red Blood Count 2.51 L Red Cell Distribution Width 17.8 H Sodium Level 137 Troponin I 0.448 *H White Blood Count 8.1 Medications Medications Current Medications Pantoprazole (Protonix Iv) 40 mg DAILY@06 IV Last administered on 03/18/16 06: 14; Admin Dose 40 MG; Start 03/14/16 at 06:00 Aspirin (Aspirin) 81 mg DAILY PO Last administered on 03/18/16 10:15; Admin Dose 81 MG; Start 03/14/16 at 09:00 Lactobacillus Acidophilus/ Rhamnosus (Culturelle) 1 cap BID PO Last administered on 03/18/16 10:15; Admin Dose 1 CAP; Start 03/15/16 at 21:00 Morphine Sulfate 2 mg 2 mg Q6 PRN IV pain; Start 03/16/16 at 22:04 Meropenem/Sodium Chloride (Merrem/NS) 100 ml @ 200 mls/hr DAILY IVPB Last administered on 03/18/16 09:00; Admin Dose 200 MLS/HR; Start 03/18/16 at 09:00 Metoprolol Tartrate (Lopressor) 25 mg BID PO ; Start 03/18/16 at 21:00 MADY CAMP Mar 18, 2016 14:40
--- NOTE | 2016-03-18 16:17 | CONS ---
Date/Time of Note Date/Time of Note DATE: 03/18/16 TIME: 16:15 Assessment/Plan Assessment/Plan Chief Complaint/Hosp Course IMPRESSION: 1. Patient has acute hypoxic respiratory failure, lung infiltrate.better AND INFLUENZA+ 2. Pulmonary edema, rule out ischemic heart disease.better 3. End-stage renal disease. 4. Hypertension. 5. Anemia. 6. Retinitis pigmentosa. 7. Lactic acidosis.better 8. Positive troponin. 9 sirs 10 nstemi plan hd per id AND CARDIO Problems: Consultation Date/Type/Reason Admit Date/Time Mar 13, 2016 at 13:38 Initial Consult Date 03/14/16 Type of Consultation: RENAL Referring Provider: BRENNA JENSEN 24 HR Interval Summary Constitutional: other (SOB BETTER) Exam/Review of Systems Vital Signs Vitals Vital Signs Date Time Temp Pulse Resp B/P Pulse Ox O2 Delivery O2 Flow Rate FiO2 03/18/16 16:00 70 18 92 21 03/18/16 15:36 97.6 128/69 03/18/16 08:23 Nasal Cannula 1.0 Intake and Output 03/17/16 03/17/16 03/18/16 15:00 23:00 07:00 Intake Total 1220 ml 300 ml Output Total 1500 ml 0 ml Balance -280 ml 300 ml Exam Neck: supple Respiratory: clear to auscultation Cardiovascular: regular rate and rhythm Gastrointestinal: soft Musculoskeletal: nl extremities to inspection Extremities: normal pulses Results Result Diagram: 03/18/16 0640 03/18/16 0640 Results 24 hrs Laboratory Tests Test 03/18/16 06:40 Anion Gap 22 H Basophils # 0.1 Basophils % 0.7 Blood Morphology Comment Blood Urea Nitrogen 25 H Calcium Level 6.9 L Carbon Dioxide Level 26 Chloride Level 93 L Creatine Kinase 590 H Creatine Kinase Index 3.5 Creatinine 2.91 H Creatinine Kinase MB (Mass) 20.70 H Eosinophils # 0.9 H Eosinophils % 11.5 H Glucose Level 76 # Hematocrit 25.9 L Hemoglobin 8.7 L Lymphocytes # 2.3 Lymphocytes % 28.1 Mean Corpuscular Hemoglobin 34.8 H Mean Corpuscular Hemoglobin Concent 33.8 Mean Corpuscular Volume 103.0 H Mean Platelet Volume 10.2 Monocytes # 0.7 Monocytes % 9.0 Neutrophils # 4.1 Neutrophils % 50.7 Nucleated Red Blood Cells # 0.0 Nucleated Red Blood Cells % 0.0 Platelet Count 38 #L Potassium Level 3.5 Red Blood Count 2.51 L Red Cell Distribution Width 17.8 H Sodium Level 137 Troponin I 0.448 *H White Blood Count 8.1 Medications Medications Current Medications Pantoprazole (Protonix Iv) 40 mg DAILY@06 IV Last administered on 03/18/16 06: 14; Admin Dose 40 MG; Start 03/14/16 at 06:00 Aspirin (Aspirin) 81 mg DAILY PO Last administered on 03/18/16 10:15; Admin Dose 81 MG; Start 03/14/16 at 09:00 Lactobacillus Acidophilus/ Rhamnosus (Culturelle) 1 cap BID PO Last administered on 03/18/16 10:15; Admin Dose 1 CAP; Start 03/15/16 at 21:00 Morphine Sulfate 2 mg 2 mg Q6 PRN IV pain; Start 03/16/16 at 22:04 Meropenem/Sodium Chloride (Merrem/NS) 100 ml @ 200 mls/hr DAILY IVPB Last administered on 03/18/16 09:00; Admin Dose 200 MLS/HR; Start 03/18/16 at 09:00 Metoprolol Tartrate (Lopressor) 25 mg BID PO ; Start 03/18/16 at 21:00 DALLAS CABRAL MD Mar 18, 2016 16:17
--- NOTE | 2016-03-18 17:28 | PN ---
DATE: 03/18/2016 SUBJECTIVE: The patient is stable, no new events. PHYSICAL EXAMINATION: VITAL SIGNS: Stable. Temperature 98, pulse is 70, blood pressure 105/55, O2 saturation 90% on [address] nasal cannula. NECK: Supple. No JVD or lymphadenopathy. CARDIAC: S1, S2. No added sounds or murmurs. CHEST: Diminished air entry bilaterally. No rales or wheezes. ABDOMEN: Soft, nontender. No guarding or rebound. EXTREMITIES: No cyanosis, clubbing, edema. NEUROLOGIC: Grossly intact. No focal deficits. LABORATORY DATA: White count 8.1, hemoglobin 8.7, platelets of 38. Chemistry: BUN 25, creatinine 2.9. IMPRESSION AND PLAN: 1. Hypoxemia, likely secondary to pulmonary edema. 2. End-stage renal failure on hemodialysis. 3. Retinitis pigmentosa with bilateral blindness. 4. Resolving encephalopathy. From pulmonary standpoint, the patient can be discharged home. Should continue with hemodialysis. Follow up with primary care physician. Continue aspiration precautions. Dictated By: CAREN WASSERMAN MD SV/HEIDE Conf#: [id number] DID#: [id number] CC: GAGE TAMAYO MD;*EndCC*
[2016-03-19] VITALS (17 sets, daily range): BP systolic 93–127; BP diastolic 56–74; PULSE 69–71; RESP 16–20
[2016-03-19] MEDS: LEVALBUTEROL (NEB) 0.63 MG/3 ML AMP HHN SCH ×4 (01:33→20:00)
[2016-03-19] MEDS: PANTOPRAZOLE 40 MG INJ IV SCH (05:21)
[2016-03-19 06:12] LABS: BASOPHIL # 0.1 10^3/ul (0.0-0.1); BASOPHILS % 1.2 % (0.0-2.0); EOSINOPHILS # 0.8 10^3/ul (0.0-0.5); EOSINOPHILS % 9.8 % (0.0-7.0); HEMATOCRIT 25.5 % (37.0-47.0); HEMOGLOBIN 8.8 g/dl (12.0-16.0); LYMPHOCYTES % 25.3 % (15.0-51.0); MEAN CORPUSCULAR HEMOGLOBIN 35.5 pg (29.0-33.0); MEAN CORPUSCULAR HGB CONC 34.4 g/dl (32.0-37.0); MEAN CORPUSCULAR VOLUME 103.2 fl (82.0-101.0); MEAN PLATELET VOLUME 10.2 fl (7.4-10.4); MONOCYTE # 0.7 10^3/ul (0.3-0.9); MONOCYTES % 8.8 % (0.0-11.0); NEUTROPHIL # 4.4 10^3/ul (1.6-7.5); NEUTROPHILS % 54.9 % (39.0-77.0); PLATELET COUNT 49 10^3/UL (140-440); RED BLOOD COUNT 2.47 10^6/ul (4.20-5.40); RED CELL DISTRIBUTION WIDTH 17.5 % (11.5-14.5); UNCORRECTED WBC 7.9 10^3/ul (4.8-10.8); WHITE BLOOD COUNT 7.9 10^3/ul (4.8-10.8)
[2016-03-19 06:20] LABS: CONDITION 1; LH ANALYZER COMMENTS 1
[2016-03-19 06:27] LABS: ALBUMIN 3.1 g/dl (3.3-4.9); POTASSIUM 3.5 mmol/L (3.5-5.1)
[2016-03-19 06:29] LABS: BILIRUBIN,INDIRECT 0.3 mg/dl (0-1.1); BILIRUBIN,TOTAL 0.3 mg/dl (0.2-1.3); CREATININE 4.64 mg/dl (0.44-1.00)
[2016-03-19 06:30] LABS: CALCIUM 6.4 mg/dl (8.4-10.2); TOTAL PROTEIN 6.2 g/dl (6.1-8.1)
[2016-03-19] MEDS: ASPIRIN 81 MG TAB PO SCH (08:19)
[2016-03-19] MEDS: LACTOBACILLUS RHAMNOSUS CAP PO SCH ×2 (08:19→22:38)
[2016-03-19] MEDS: MEROPENEM 500 MG in SOD CHLORIDE 0.9% 100 ML IVPB SCH (08:20)
[2016-03-19] MEDS: METOPROLOL 25 MG TAB PO SCH ×2 (08:20→22:38)
--- NOTE | 2016-03-19 11:39 | CONS ---
Date/Time of Note Date/Time of Note DATE: 03/19/16 TIME: 11:35 Assessment/Plan Assessment/Plan Chief Complaint/Hosp Course Assessment/Impression: - influenza A bronchitis - on tamiflu - possibly concurrent HCAP, multi-lobar - sputum cx grew normal respiratory alexandra; on meropenem - s/p sepsis d/t above. Fever and tachypnea resolved. - pulmonary edema - lactic acidosis - resolving - thrombocytopenia, possibly induced by pip/tazo (pip/tazo dc'd 03/16) - transaminitis, possibly shock liver - ESRD on HD via AVG on RUE, being worked up for renal transplant at [facility] - anemia of ESRD - b/l blindness from retinitis pigmentosa. - positive troponin on admission in setting of resp distress and chronic renal failure - NSVT - Hx CHB s/p PPM - S/p Vanco (03/13-03/15), pip/tazo (03/14-03/16), and zithromax (03/16/16) Recommendations: - continue oseltamivir (03/13/16-) to finish 03/23/16 - continue meropenem (03/16/16-) through 03/21/16 - probiotics - trend platelet count (upward trending); appreciate Hematology input - appreciate GI eval for transaminitis - okay to DC home from ID standpoint with home health for IV meropenem through ; outpatient f/u with ID. - management and dc plans d/w pt and family - Above d/w Dr. Lenz Problems: Consultation Date/Type/Reason Admit Date/Time Mar 13, 2016 at 13:38 Initial Consult Date 03/14/16 Type of Consultation: Infectious Disease Referring Provider: BRENNA JENSEN 24 HR Interval Summary Free Text/Dictation Remains afebrile and family asking about DC plans per JUNI Davis. Pt and family reports pt has lost some weight since being hospitalized and anxious to be discharged when deemed medically stable. Still has cough but SOB has significantly improved. No fever, chills, CP, SOB, abd pain, n/v/d. Exam/Review of Systems Vital Signs Vitals Vital Signs Date Time Temp Pulse Resp B/P Pulse Ox O2 Delivery O2 Flow Rate FiO2 03/19/16 11:17 98.3 71 16 93/59 95 03/19/16 08:57 Nasal Cannula 1.0 24 Exam Constitutional: alert, frail (somewhat frail), oriented, other (small in stature) Head: atraumatic, normocephalic Neck: supple Respiratory: diminished breath sounds. No wheezing Cardiovascular: other (left chest wall PM noted intact), regular rate and rhythm Gastrointestinal: bowel sounds, non-tender, soft Musculoskeletal: nl extremities to inspection Extremities: normal pulses, other (RUE AVF with good bruit and thrill), No clubbing, No edema Neurological: nl mental status, nl speech Skin: nl turgor Results Result Diagram: 03/19/1652103/19/16521 Results 24 hrs Laboratory Tests Test 03/19/16 05:22 Alanine Aminotransferase (ALT/SGPT) 743 H Albumin 3.1 L Albumin/Globulin Ratio 1.00 Alkaline Phosphatase 164 H Anion Gap 21 H Aspartate Amino Transf (AST/SGOT) 465 H Basophils # 0.1 Basophils % 1.2 Blood Morphology Comment Blood Urea Nitrogen 41 #H Calcium Level 6.4 L Carbon Dioxide Level 26 Chloride Level 96 L Creatinine 4.64 #H Direct Bilirubin 0.00 Eosinophils # 0.8 H Eosinophils % 9.8 H Globulin 3.10 Glucose Level 79 Hematocrit 25.5 L Hemoglobin 8.8 L Indirect Bilirubin 0.3 Lymphocytes # 2.0 Lymphocytes % 25.3 Mean Corpuscular Hemoglobin 35.5 H Mean Corpuscular Hemoglobin Concent 34.4 Mean Corpuscular Volume 103.2 H Mean Platelet Volume 10.2 Monocytes # 0.7 Monocytes % 8.8 Neutrophils # 4.4 Neutrophils % 54.9 Nucleated Red Blood Cells # 0.0 Nucleated Red Blood Cells % 0.0 Platelet Count 49 #L Potassium Level 3.5 Red Blood Count 2.47 L Red Cell Distribution Width 17.5 H Sodium Level 139 Total Bilirubin 0.3 Total Protein 6.2 White Blood Count 7.9 Medications Medications Current Medications Pantoprazole (Protonix Iv) 40 mg DAILY@06 IV Last administered on 03/19/16 05: 21; Admin Dose 40 MG; Start 03/14/16 at 06:00 Aspirin (Aspirin) 81 mg DAILY PO Last administered on 03/19/16 08:19; Admin Dose 81 MG; Start 03/14/16 at 09:00 Lactobacillus Acidophilus/ Rhamnosus (Culturelle) 1 cap BID PO Last administered on 03/19/16 08:19; Admin Dose 1 CAP; Start 03/15/16 at 21:00 Morphine Sulfate 2 mg 2 mg Q6 PRN IV pain; Start 03/16/16 at 22:04 Meropenem/Sodium Chloride (Merrem/NS) 100 ml @ 200 mls/hr DAILY IVPB Last administered on 03/19/16 08:20; Admin Dose 200 MLS/HR; Start 03/18/16 at 09:00 Metoprolol Tartrate (Lopressor) 25 mg BID PO Last administered on 03/19/16 08: 20; Admin Dose 25 MG; Start 03/18/16 at 21:00 DION TORRES NP Mar 19, 2016 11:39
--- NOTE | 2016-03-19 11:44 | CONS ---
Date/Time of Note Date/Time of Note DATE: 03/19/16 TIME: 11:34 Assessment/Plan Assessment/Plan Additional Assessment/Plan Severe sepsis Elevated troponin, likely multifactorial Cardiomyopathy End-stage renal disease on hemodialysis Pacemaker dependent -I was contacted by patient's in-house supervisor tan room that patient follows with our group colleagues from cardiology. On review of medical chart and discussion with patient, patient presented with severe sepsis and respiratory failure with elevated troponin. Patient influenza positive. Patient treated aggressively with significant improvement in shortness of breath. Troponins have since trended down and patient has remained chest pain-free. Patient with thrombocytopenia, would continue aspirin if no bleeding issues and if platelet count continues to improve. Continue beta alisha if blood pressure tolerates. Holding off on statin therapy secondary to abnormal LFTs. Patient is pacemaker dependent and planned for RV lead revision in the near future once infection issues cleared up. DC planning Consultation Date/Type/Reason Admit Date/Time Mar 13, 2016 at 13:38 Initial Consult Date 03/15/16 Type of Consultation: cv Referring Provider: RBENNA JENSEN 24 HR Interval Summary Free Text/Dictation Patient denies shortness of breath, chest pain or palpitations. Complains of mild cough Exam/Review of Systems Vital Signs Vitals Vital Signs Date Time Temp Pulse Resp B/P Pulse Ox O2 Delivery O2 Flow Rate FiO2 03/19/16 11:17 98.3 71 16 93/59 95 03/19/16 08:57 Nasal Cannula 1.0 24 Exam No apparent distress, no dyspnea with speaking Constitutional: alert, oriented Head: normocephalic Neck: supple Respiratory: other (course breath sounds bilaterally, mild crackles left base) Cardiovascular: other (S1-S2 heard), regular rate and rhythm Gastrointestinal: bowel sounds, non-tender, soft Extremities: edema (trace) Results Result Diagram: 03/19/16 0522 03/19/16 0522 Results 24 hrs Laboratory Tests Test 03/19/16 05:22 Alanine Aminotransferase (ALT/SGPT) 743 H Albumin 3.1 L Albumin/Globulin Ratio 1.00 Alkaline Phosphatase 164 H Anion Gap 21 H Aspartate Amino Transf (AST/SGOT) 465 H Basophils # 0.1 Basophils % 1.2 Blood Morphology Comment Blood Urea Nitrogen 41 #H Calcium Level 6.4 L Carbon Dioxide Level 26 Chloride Level 96 L Creatinine 4.64 #H Direct Bilirubin 0.00 Eosinophils # 0.8 H Eosinophils % 9.8 H Globulin 3.10 Glucose Level 79 Hematocrit 25.5 L Hemoglobin 8.8 L Indirect Bilirubin 0.3 Lymphocytes # 2.0 Lymphocytes % 25.3 Mean Corpuscular Hemoglobin 35.5 H Mean Corpuscular Hemoglobin Concent 34.4 Mean Corpuscular Volume 103.2 H Mean Platelet Volume 10.2 Monocytes # 0.7 Monocytes % 8.8 Neutrophils # 4.4 Neutrophils % 54.9 Nucleated Red Blood Cells # 0.0 Nucleated Red Blood Cells % 0.0 Platelet Count 49 #L Potassium Level 3.5 Red Blood Count 2.47 L Red Cell Distribution Width 17.5 H Sodium Level 139 Total Bilirubin 0.3 Total Protein 6.2 White Blood Count 7.9 Medications Medications Current Medications Pantoprazole (Protonix Iv) 40 mg DAILY@06 IV Last administered on 03/19/16 05: 21; Admin Dose 40 MG; Start 03/14/16 at 06:00 Aspirin (Aspirin) 81 mg DAILY PO Last administered on 03/19/16 08:19; Admin Dose 81 MG; Start 03/14/16 at 09:00 Lactobacillus Acidophilus/ Rhamnosus (Culturelle) 1 cap BID PO Last administered on 03/19/16 08:19; Admin Dose 1 CAP; Start 03/15/16 at 21:00 Morphine Sulfate 2 mg 2 mg Q6 PRN IV pain; Start 03/16/16 at 22:04 Meropenem/Sodium Chloride (Merrem/NS) 100 ml @ 200 mls/hr DAILY IVPB Last administered on 03/19/16 08:20; Admin Dose 200 MLS/HR; Start 03/18/16 at 09:00 Metoprolol Tartrate (Lopressor) 25 mg BID PO Last administered on 03/19/16 08: 20; Admin Dose 25 MG; Start 03/18/16 at 21:00 Jonathan Woodard DO Mar 19, 2016 11:44
--- NOTE | 2016-03-19 12:37 | CONS ---
Date/Time of Note Date/Time of Note DATE: 03/19/16 TIME: 12:37 Assessment/Plan Assessment/Plan Additional Assessment/Plan Additional Assessment/Plan IMPRESSION: 1. End-stage renal disease. 2. Pneumonia with sepsis. 3. Abnormal LFT, rule out ischemic hepatitis.hepatitis panel negative,drug induce?slowly coming down 4. Anemia. 5. Macrocytosis. 6. End-stage renal disease on dialysis. 7. Status post pacemaker insertion. 8. 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 9.thrombocytopenia,Zosyn discontinued Plan monitor liver function continue present care DELANEY, anti smooth muscle antibody Consultation Date/Type/Reason Admit Date/Time Mar 13, 2016 at 13:38 Initial Consult Date 03/15/16 Type of Consultation: cv Referring Provider: BRENNA JENSEN 24 HR Interval Summary Constitutional: improved, no complaints Exam/Review of Systems Vital Signs Vitals Vital Signs Date Time Temp Pulse Resp B/P Pulse Ox O2 Delivery O2 Flow Rate FiO2 03/19/16 12:08 70 03/19/16 11:17 98.3 16 93/59 95 03/19/16 08:57 Nasal Cannula 1.0 24 Exam Constitutional: alert, oriented, well developed Psych: nl mood/affect, no complaints Head: atraumatic, normocephalic Eyes: EOMI, PERRL, nl conjunctiva, nl lids, nl sclera ENMT: nl external ears & nose, nl lips & teeth, nl nasal mucosa & septum Neck: non-tender, supple Respiratory: clear to auscultation, normal air movement Cardiovascular: nl pulses, regular rate and rhythm Gastrointestinal: nl liver, spleen, non-tender, soft Musculoskeletal: nl extremities to inspection, nl gait and stance Extremities: normal pulses Neurological: REED [employer] REPA[employer]ER II-XII intact, nl mental status, nl speech, nl strength Skin: nl turgor, No rash or lesions Lymph: nl lymph nodes Results Result Diagram: 03/19/1652103/19/16521 Results 24 hrs Laboratory Tests Test 03/19/16 05:22 Alanine Aminotransferase (ALT/SGPT) 743 H Albumin 3.1 L Albumin/Globulin Ratio 1.00 Alkaline Phosphatase 164 H Anion Gap 21 H Aspartate Amino Transf (AST/SGOT) 465 H Basophils # 0.1 Basophils % 1.2 Blood Morphology Comment Blood Urea Nitrogen 41 #H Calcium Level 6.4 L Carbon Dioxide Level 26 Chloride Level 96 L Creatinine 4.64 #H Direct Bilirubin 0.00 Eosinophils # 0.8 H Eosinophils % 9.8 H Globulin 3.10 Glucose Level 79 Hematocrit 25.5 L Hemoglobin 8.8 L Indirect Bilirubin 0.3 Lymphocytes # 2.0 Lymphocytes % 25.3 Mean Corpuscular Hemoglobin 35.5 H Mean Corpuscular Hemoglobin Concent 34.4 Mean Corpuscular Volume 103.2 H Mean Platelet Volume 10.2 Monocytes # 0.7 Monocytes % 8.8 Neutrophils # 4.4 Neutrophils % 54.9 Nucleated Red Blood Cells # 0.0 Nucleated Red Blood Cells % 0.0 Platelet Count 49 #L Potassium Level 3.5 Red Blood Count 2.47 L Red Cell Distribution Width 17.5 H Sodium Level 139 Total Bilirubin 0.3 Total Protein 6.2 White Blood Count 7.9 Medications Medications Current Medications Pantoprazole (Protonix Iv) 40 mg DAILY@06 IV Last administered on 03/19/16 05: 21; Admin Dose 40 MG; Start 03/14/16 at 06:00 Aspirin (Aspirin) 81 mg DAILY PO Last administered on 03/19/16 08:19; Admin Dose 81 MG; Start 03/14/16 at 09:00 Lactobacillus Acidophilus/ Rhamnosus (Culturelle) 1 cap BID PO Last administered on 03/19/16 08:19; Admin Dose 1 CAP; Start 03/15/16 at 21:00 Morphine Sulfate 2 mg 2 mg Q6 PRN IV pain; Start 03/16/16 at 22:04 Meropenem/Sodium Chloride (Merrem/NS) 100 ml @ 200 mls/hr DAILY IVPB Last administered on 03/19/16 08:20; Admin Dose 200 MLS/HR; Start 03/18/16 at 09:00 Metoprolol Tartrate (Lopressor) 25 mg BID PO Last administered on 03/19/16 08: 20; Admin Dose 25 MG; Start 03/18/16 at 21:00 BREA KEN MD Mar 19, 2016 12:37
--- NOTE | 2016-03-19 14:57 | CONS ---
Date/Time of Note Date/Time of Note DATE: 03/19/16 TIME: 14:52 Assessment/Plan Assessment/Plan Chief Complaint/Hosp Course The patient is a 25 year old female with past medical history of end-stage renal disease, hemodialysis-dependent, legal blindness, with multilobar pneumonia with lactic acid 16.2, on vancomycin and zosyn, as well as influenza A , with thrombocytopenia. Thrombocytopenia likely related to sepsis as well as possible contribution from both vancomycin and zosyn. Platelets are improving - HIV, Hep B/C neg. - Peripheral smear with path review ordered, which showed decreased platelets, no clumping, no schistocytes. - Will continue to follow counts. Consider switching antibiotics if platelets continue to decline but for now can continue current antibiotic regimen Will continue to follow. Problems: Consultation Date/Type/Reason Admit Date/Time Mar 13, 2016 at 13:38 Initial Consult Date 03/15/16 Type of Consultation: Hematology Reason for Consultation no acute overnight events Referring Provider: BRENNA JENSEN 24 HR Interval Summary Free Text/Dictation continues with IV antibiotics Exam/Review of Systems Vital Signs Vitals Vital Signs Date Time Temp Pulse Resp B/P Pulse Ox O2 Delivery O2 Flow Rate FiO2 03/19/16 14:02 75 20 99 Nasal Cannula 1.0 24 03/19/16 11:17 98.3 93/59 Exam Constitutional: alert, oriented Psych: no complaints Head: atraumatic, normocephalic Eyes: nl conjunctiva ENMT: nl external ears & nose Neck: non-tender, supple Respiratory: crackles/rales Cardiovascular: nl pulses, regular rate and rhythm Gastrointestinal: soft Musculoskeletal: nl extremities to inspection, nl gait and stance Extremities: normal pulses Results Result Diagram: 03/19/1652103/19/16 05 Results 24 hrs Laboratory Tests Test 03/19/16 05:22 Alanine Aminotransferase (ALT/SGPT) 743 H Albumin 3.1 L Albumin/Globulin Ratio 1.00 Alkaline Phosphatase 164 H Anion Gap 21 H Aspartate Amino Transf (AST/SGOT) 465 H Basophils # 0.1 Basophils % 1.2 Blood Morphology Comment Blood Urea Nitrogen 41 #H Calcium Level 6.4 L Carbon Dioxide Level 26 Chloride Level 96 L Creatinine 4.64 #H Direct Bilirubin 0.00 Eosinophils # 0.8 H Eosinophils % 9.8 H Globulin 3.10 Glucose Level 79 Hematocrit 25.5 L Hemoglobin 8.8 L Indirect Bilirubin 0.3 Lymphocytes # 2.0 Lymphocytes % 25.3 Mean Corpuscular Hemoglobin 35.5 H Mean Corpuscular Hemoglobin Concent 34.4 Mean Corpuscular Volume 103.2 H Mean Platelet Volume 10.2 Monocytes # 0.7 Monocytes % 8.8 Neutrophils # 4.4 Neutrophils % 54.9 Nucleated Red Blood Cells # 0.0 Nucleated Red Blood Cells % 0.0 Platelet Count 49 #L Potassium Level 3.5 Red Blood Count 2.47 L Red Cell Distribution Width 17.5 H Sodium Level 139 Total Bilirubin 0.3 Total Protein 6.2 White Blood Count 7.9 Medications Medications Current Medications Pantoprazole (Protonix Iv) 40 mg DAILY@06 IV Last administered on 03/19/16 05: 21; Admin Dose 40 MG; Start 03/14/16 at 06:00 Aspirin (Aspirin) 81 mg DAILY PO Last administered on 03/19/16 08:19; Admin Dose 81 MG; Start 03/14/16 at 09:00 Lactobacillus Acidophilus/ Rhamnosus (Culturelle) 1 cap BID PO Last administered on 03/19/16 08:19; Admin Dose 1 CAP; Start 03/15/16 at 21:00 Morphine Sulfate 2 mg 2 mg Q6 PRN IV pain; Start 03/16/16 at 22:04 Meropenem/Sodium Chloride (Merrem/NS) 100 ml @ 200 mls/hr DAILY IVPB Last administered on 03/19/16 08:20; Admin Dose 200 MLS/HR; Start 03/18/16 at 09:00 Metoprolol Tartrate (Lopressor) 25 mg BID PO Last administered on 03/19/16 08: 20; Admin Dose 25 MG; Start 03/18/16 at 21:00 DANA CHEUNG M.D. Mar 19, 2016 14:57
--- NOTE | 2016-03-19 18:46 | PN ---
DATE: 03/19/2016 SUBJECTIVE: Patient currently remains stable overnight, no new events. PHYSICAL EXAMINATION: VITAL SIGNS: Stable. Temperature 98, pulse 70, blood pressure 100/60, O2 saturation 96% on 1 liter nasal cannula. NECK: Supple, no JVD or lymphadenopathy. CARDIAC: S1, S2, no added sounds or murmurs. CHEST: Diminished air entry bilaterally. ABDOMEN: Soft, nontender. No guarding or rebound. EXTREMITIES: No cyanosis, clubbing, edema. NEUROLOGIC: Generalized weakness, but no focal deficits. LABORATORY DATA: White count 9.7, hemoglobin 8.8, platelets 49. Chemistry: BUN 41, creatinine 4.6 7. IMPRESSION AND PLAN: 1. End-stage renal failure on hemodialysis, stable from pulmonary standpoint. 2. Recent pneumonia, clinically improved. 3. Legally blind secondary to retinitis pigmentosa, stable. 3. History of macrocytosis. PLAN: 1. Discontinue femoral line. 2. Pulmonary toilet. 3. Antibiotics per ID. 4. Hemodialysis per primary team. 5. Discharge planning okay from pulmonary standpoint. Dictated By: CAREN ALANIS/HEIDE Conf#: [id number] DID#: [id number]
--- NOTE | 2016-03-19 19:38 | PN ---
Date/Time of Note Date/Time of Note DATE: 03/19/16 TIME: 19:37 Assessment/Plan VTE Prophylaxis VTE Prophylaxis Intervention: SCD's Lines/Catheters [facility] Type [facility]from [facility] Saline Lock Urinary Cath still in place: No Assessment/Plan Chief Complaint/Hosp Course ASSESSMENT AND PLAN: 1. Multilobar pneumonia. Continue meropenem. Dr. Glover is following an infection disease consultation. 2. Influenza A, continue Tamiflu. 3. Acute respiratory distress, resolving. Continue oxygen supplementation and bronchodilators. Dr. Reed to see patient in pulmonology consultation. 2. End-stage renal disease, hemodialysis dependent. Dr. Lake is following patient in nephrology consultation. 3. Positive troponin. Dr Red is following in cardiology consultation. Continue aspirin. 4. Permanent pacemaker. 5. Hypertension, currently patient is normotensive. 6. Anemia of chronic disease. 7. Legally blind. 8. Thrombocytopenia. 9. Pulmonary edema. Continue remove fluids with hemodialysis. 10. Transaminitis. Dr. Herrera is following in gastroenterology consultation. Plan of care d/w pt's brother over the phone, complete abx on Saturday, anticipate d/c home on 03/21. Start PT. Continue Protonix for peptic ulcer disease prophylaxis. Further recommendations based on clinical course. Plan of care discussed with Dr. Goldman. Problems: Subjective 24 Hr Interval Summary Free Text/Dictation Patient is comfortable on room air, complains of cough, no fever. Exam/Review of Systems Vital Signs Vitals Vital Signs Date Time Temp Pulse Resp B/P Pulse Ox O2 Delivery O2 Flow Rate FiO2 03/19/16 16:37 70 03/19/16 16:32 97.7 18 124/72 96 03/19/16 15:30 1.0 03/19/16 14:02 Nasal Cannula 24 Exam GENERAL: This is a well-developed, cachectic female, awake, alert. HEENT: The patient is legally blind. Oral mucosa is pink and moist. NECK: Supple. No cervical lymphadenopathy. LUNGS: With scattered rhonchi, diminished at the bases. CARDIOVASCULAR: Normal S1, S2. No murmurs, gallops, clicks, rubs noted. ABDOMEN: Flat, soft, nondistended, nontender. Bowel sounds present. No guarding, no tenderness. EXTREMITIES: With prominent muscle wasting. Right upper extremity with AV fistula. No cyanosis noted. Pulses equal bilaterally 2+. SKIN: There is no rash noted. NEUROLOGIC: The patient is awake, alert, and oriented to name and situation. No focal deficits noted. Results Result Diagram: 03/19/1652103/19/1622 Results 24 hrs Laboratory Tests Test 03/19/16 05:22 Alanine Aminotransferase (ALT/SGPT) 743 H Albumin 3.1 L Albumin/Globulin Ratio 1.00 Alkaline Phosphatase 164 H Anion Gap 21 H Aspartate Amino Transf (AST/SGOT) 465 H Basophils # 0.1 Basophils % 1.2 Blood Morphology Comment Blood Urea Nitrogen 41 #H Calcium Level 6.4 L Carbon Dioxide Level 26 Chloride Level 96 L Creatinine 4.64 #H Direct Bilirubin 0.00 Eosinophils # 0.8 H Eosinophils % 9.8 H Globulin 3.10 Glucose Level 79 Hematocrit 25.5 L Hemoglobin 8.8 L Indirect Bilirubin 0.3 Lymphocytes # 2.0 Lymphocytes % 25.3 Mean Corpuscular Hemoglobin 35.5 H Mean Corpuscular Hemoglobin Concent 34.4 Mean Corpuscular Volume 103.2 H Mean Platelet Volume 10.2 Monocytes # 0.7 Monocytes % 8.8 Neutrophils # 4.4 Neutrophils % 54.9 Nucleated Red Blood Cells # 0.0 Nucleated Red Blood Cells % 0.0 Platelet Count 49 #L Potassium Level 3.5 Red Blood Count 2.47 L Red Cell Distribution Width 17.5 H Sodium Level 139 Total Bilirubin 0.3 Total Protein 6.2 White Blood Count 7.9 Medications Medications Current Medications Pantoprazole (Protonix Iv) 40 mg DAILY@06 IV Last administered on 03/19/16 05: 21; Admin Dose 40 MG; Start 03/14/16 at 06:00 Aspirin (Aspirin) 81 mg DAILY PO Last administered on 03/19/16 08:19; Admin Dose 81 MG; Start 03/14/16 at 09:00 Lactobacillus Acidophilus/ Rhamnosus (Culturelle) 1 cap BID PO Last administered on 03/19/16 08:19; Admin Dose 1 CAP; Start 03/15/16 at 21:00 Morphine Sulfate 2 mg 2 mg Q6 PRN IV pain; Start 03/16/16 at 22:04 Meropenem/Sodium Chloride (Merrem/NS) 100 ml @ 200 mls/hr DAILY IVPB Last administered on 03/19/16 08:20; Admin Dose 200 MLS/HR; Start 03/18/16 at 09:00 Metoprolol Tartrate (Lopressor) 25 mg BID PO Last administered on 03/19/16 08: 20; Admin Dose 25 MG; Start 03/18/16 at 21:00 BRENNA JENSEN Mar 19, 2016 19:37
--- NOTE | 2016-03-19 19:39 | CONS ---
Date/Time of Note Date/Time of Note DATE: 03/19/16 TIME: 19:38 Assessment/Plan Assessment/Plan Chief Complaint/Hosp Course IMPRESSION: 1. Patient has acute hypoxic respiratory failure, lung infiltrate.better AND INFLUENZA+better 2. Pulmonary edema, rule out ischemic heart disease.better 3. End-stage renal disease. 4. Hypertension. 5. Anemia. 6. Retinitis pigmentosa. 7. Lactic acidosis.better 8. Positive troponin. 9 sirs 10 nstemi 11 elevated lft sepsis plan hd per id AND CARDIO Problems: Consultation Date/Type/Reason Admit Date/Time Mar 13, 2016 at 13:38 Initial Consult Date 03/14/16 Type of Consultation: renal Referring Provider: BRENNA JENSEN 24 HR Interval Summary Constitutional: no complaints Exam/Review of Systems Vital Signs Vitals Vital Signs Date Time Temp Pulse Resp B/P Pulse Ox O2 Delivery O2 Flow Rate FiO2 03/19/16 16:37 70 03/19/16 16:32 97.7 18 124/72 96 03/19/16 15:30 1.0 03/19/16 14:02 Nasal Cannula 24 Exam Neck: supple Respiratory: clear to auscultation Cardiovascular: regular rate and rhythm Gastrointestinal: bowel sounds (+), soft Extremities: No edema Results Result Diagram: 03/19/1622 03/19/16 0522 Results 24 hrs Laboratory Tests Test 03/19/16 05:22 Alanine Aminotransferase (ALT/SGPT) 743 H Albumin 3.1 L Albumin/Globulin Ratio 1.00 Alkaline Phosphatase 164 H Anion Gap 21 H Aspartate Amino Transf (AST/SGOT) 465 H Basophils # 0.1 Basophils % 1.2 Blood Morphology Comment Blood Urea Nitrogen 41 #H Calcium Level 6.4 L Carbon Dioxide Level 26 Chloride Level 96 L Creatinine 4.64 #H Direct Bilirubin 0.00 Eosinophils # 0.8 H Eosinophils % 9.8 H Globulin 3.10 Glucose Level 79 Hematocrit 25.5 L Hemoglobin 8.8 L Indirect Bilirubin 0.3 Lymphocytes # 2.0 Lymphocytes % 25.3 Mean Corpuscular Hemoglobin 35.5 H Mean Corpuscular Hemoglobin Concent 34.4 Mean Corpuscular Volume 103.2 H Mean Platelet Volume 10.2 Monocytes # 0.7 Monocytes % 8.8 Neutrophils # 4.4 Neutrophils % 54.9 Nucleated Red Blood Cells # 0.0 Nucleated Red Blood Cells % 0.0 Platelet Count 49 #L Potassium Level 3.5 Red Blood Count 2.47 L Red Cell Distribution Width 17.5 H Sodium Level 139 Total Bilirubin 0.3 Total Protein 6.2 White Blood Count 7.9 Medications Medications Current Medications Pantoprazole (Protonix Iv) 40 mg DAILY@06 IV Last administered on 03/19/16 05: 21; Admin Dose 40 MG; Start 03/14/16 at 06:00 Aspirin (Aspirin) 81 mg DAILY PO Last administered on 03/19/16 08:19; Admin Dose 81 MG; Start 03/14/16 at 09:00 Lactobacillus Acidophilus/ Rhamnosus (Culturelle) 1 cap BID PO Last administered on 03/19/16 08:19; Admin Dose 1 CAP; Start 03/15/16 at 21:00 Morphine Sulfate 2 mg 2 mg Q6 PRN IV pain; Start 03/16/16 at 22:04 Meropenem/Sodium Chloride (Merrem/NS) 100 ml @ 200 mls/hr DAILY IVPB Last administered on 03/19/16 08:20; Admin Dose 200 MLS/HR; Start 03/18/16 at 09:00 Metoprolol Tartrate (Lopressor) 25 mg BID PO Last administered on 03/19/16 08: 20; Admin Dose 25 MG; Start 03/18/16 at 21:00 DALLAS CABRAL MD Mar 19, 2016 19:39
[2016-03-19] MEDS: OSELTAMIVIR 30 MG CAP PO SCH (22:38)
[2016-03-20] VITALS (17 sets, daily range): BP systolic 94–127; BP diastolic 45–67; PULSE 68–70; RESP 18–19
[2016-03-20] MEDS: LEVALBUTEROL (NEB) 0.63 MG/3 ML AMP HHN SCH ×4 (01:05→20:17)
[2016-03-20] MEDS: PANTOPRAZOLE 40 MG INJ IV SCH (05:46)
[2016-03-20 07:11] LABS: POTASSIUM 4.2 mmol/L (3.5-5.1)
[2016-03-20 07:14] LABS: CREATININE 3.25 mg/dl (0.44-1.00)
[2016-03-20 07:15] LABS: CALCIUM 7.7 mg/dl (8.4-10.2)
[2016-03-20 07:32] LABS: BASOPHILS % 0.7 % (0.0-2.0); EOSINOPHILS # 0.7 10^3/ul (0.0-0.5); EOSINOPHILS % 9.5 % (0.0-7.0); HEMATOCRIT 27.6 % (37.0-47.0); HEMOGLOBIN 9.4 g/dl (12.0-16.0); LYMPHOCYTES # 2.4 10^3/ul (0.8-2.9); LYMPHOCYTES % 32.8 % (15.0-51.0); MEAN CORPUSCULAR HEMOGLOBIN 34.9 pg (29.0-33.0); MEAN CORPUSCULAR HGB CONC 34.1 g/dl (32.0-37.0); MEAN CORPUSCULAR VOLUME 102.3 fl (82.0-101.0); MEAN PLATELET VOLUME 9.9 fl (7.4-10.4); MONOCYTE # 0.6 10^3/ul (0.3-0.9); MONOCYTES % 8.9 % (0.0-11.0); NEUTROPHIL # 3.5 10^3/ul (1.6-7.5); NEUTROPHILS % 48.1 % (39.0-77.0); PLATELET COUNT 75 10^3/UL (140-440); RED BLOOD COUNT 2.69 10^6/ul (4.20-5.40); RED CELL DISTRIBUTION WIDTH 17.4 % (11.5-14.5); UNCORRECTED WBC 7.2 10^3/ul (4.8-10.8); WHITE BLOOD COUNT 7.2 10^3/ul (4.8-10.8)
[2016-03-20 07:48] LABS: CONDITION 1; LH ANALYZER COMMENTS 1
[2016-03-20] MEDS: LACTOBACILLUS RHAMNOSUS CAP PO SCH ×2 (08:35→22:04)
[2016-03-20] MEDS: ASPIRIN 81 MG TAB PO SCH (08:35)
[2016-03-20] MEDS: MEROPENEM 500 MG in SOD CHLORIDE 0.9% 100 ML IVPB SCH (08:35)
[2016-03-20] MEDS: METOPROLOL 25 MG TAB PO SCH ×2 (08:36→21:00)
--- NOTE | 2016-03-20 10:53 | RADRPT ---
Vent Rate: 70 bpm RR Interval: 0 msec MN Interval: 0 msec QRS Duration: 170 msec QT Interval: 552 msec QTC Interval: 596 msec P-R-T [place]: 0 - -59 - 97 degrees Electronic ventricular pacemaker Electronically Signed By: Torres Augustine [id number]
--- NOTE | 2016-03-20 12:32 | CONS ---
Date/Time of Note Date/Time of Note DATE: 03/20/16 TIME: 12:32 Assessment/Plan Assessment/Plan Additional Assessment/Plan Assessment/Plan Assessment/Plan Additional Assessment/Plan Additional Assessment/Plan IMPRESSION: 1. End-stage renal disease. 2. Pneumonia with sepsis. 3. Abnormal LFT, rule out ischemic hepatitis.hepatitis panel negative,drug induce?slowly coming down 4. Anemia. 5. Macrocytosis. 6. End-stage renal disease on dialysis. 7. Status post pacemaker insertion. 8. 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 9.thrombocytopenia,Zosyn discontinued Plan monitor liver function continue present care DELANEY, anti smooth muscle antibody,pending Consultation Date/Type/Reason Admit Date/Time Mar 13, 2016 at 13:38 Initial Consult Date 03/15/16 Type of Consultation: renal Referring Provider: BRENNA JENSEN 24 HR Interval Summary Constitutional: no complaints Exam/Review of Systems Vital Signs Vitals Vital Signs Date Time Temp Pulse Resp B/P Pulse Ox O2 Delivery O2 Flow Rate FiO2 03/20/16 12:12 70 03/20/16 11:00 98.0 19 120/57 96 03/20/16 08:31 21 03/20/16 08:00 Nasal Cannula 1.0 Intake and Output 03/19/16 03/19/16 03/20/16 15:00 23:00 07:00 Intake Total 1080 ml 350 ml Output Total 1500 ml 0 ml Balance -420 ml 350 ml Exam Constitutional: alert, oriented, well developed Psych: nl mood/affect, no complaints Head: atraumatic, normocephalic Eyes: EOMI, PERRL, nl conjunctiva, nl lids, nl sclera ENMT: nl external ears & nose, nl lips & teeth, nl nasal mucosa & septum Neck: non-tender, supple Respiratory: clear to auscultation, normal air movement Cardiovascular: nl pulses, regular rate and rhythm Gastrointestinal: nl liver, spleen, non-tender, soft Musculoskeletal: nl extremities to inspection, nl gait and stance Extremities: normal pulses Neurological: BAND SPLITTER II-XII intact, nl mental status, nl speech, nl strength Skin: nl turgor, No rash or lesions Lymph: nl lymph nodes Results Result Diagram: 03/20/16 0625 03/20/16 0625 Results 24 hrs Laboratory Tests Test 03/20/16 06:25 Anion Gap 21 H Basophils # 0.0 Basophils % 0.7 Blood Morphology Comment Blood Urea Nitrogen 24 #H Calcium Level 7.7 L Carbon Dioxide Level 25 Chloride Level 96 L Creatinine 3.25 #H Eosinophils # 0.7 H Eosinophils % 9.5 H Glucose Level 82 Hematocrit 27.6 L Hemoglobin 9.4 L Lymphocytes # 2.4 Lymphocytes % 32.8 Mean Corpuscular Hemoglobin 34.9 H Mean Corpuscular Hemoglobin Concent 34.1 Mean Corpuscular Volume 102.3 H Mean Platelet Volume 9.9 Monocytes # 0.6 Monocytes % 8.9 Neutrophils # 3.5 Neutrophils % 48.1 Nucleated Red Blood Cells # 0.0 Nucleated Red Blood Cells % 0.0 Platelet Count 75 #L Potassium Level 4.2 Red Blood Count 2.69 L Red Cell Distribution Width 17.4 H Sodium Level 138 White Blood Count 7.2 Medications Medications Current Medications Pantoprazole (Protonix Iv) 40 mg DAILY@06 IV Last administered on 03/20/16 05: 46; Admin Dose 40 MG; Start 03/14/16 at 06:00 Aspirin (Aspirin) 81 mg DAILY PO Last administered on 03/20/16 08:35; Admin Dose 81 MG; Start 03/14/16 at 09:00 Lactobacillus Acidophilus/ Rhamnosus (Culturelle) 1 cap BID PO Last administered on 03/20/16 08:35; Admin Dose 1 CAP; Start 03/15/16 at 21:00 Morphine Sulfate 2 mg 2 mg Q6 PRN IV pain; Start 03/16/16 at 22:04 Meropenem/Sodium Chloride (Merrem/NS) 100 ml @ 200 mls/hr DAILY IVPB Last administered on 03/20/16 08:35; Admin Dose 200 MLS/HR; Start 03/18/16 at 09:00 Metoprolol Tartrate (Lopressor) 25 mg BID PO Last administered on 03/20/16 08: 36; Admin Dose 25 MG; Start 03/18/16 at 21:00 BREA KEN MD Mar 20, 2016 12:32
--- NOTE | 2016-03-20 13:01 | CONS ---
Date/Time of Note Date/Time of Note DATE: 03/20/16 TIME: 12:59 Assessment/Plan Assessment/Plan Additional Assessment/Plan Severe sepsis Elevated troponin, likely multifactorial Cardiomyopathy End-stage renal disease on hemodialysis Pacemaker dependent Thrombocytopenia -Patient continues to improve and feeling better. Fluid management via hemodialysis as per our nephrology colleagues. Platelet count is improving. Continue aspirin and beta alisha if no contraindication. No statin at the current time given abnormal LFTs. DC planning. Consultation Date/Type/Reason Admit Date/Time Mar 13, 2016 at 13:38 Initial Consult Date 03/15/16 Type of Consultation: cv Referring Provider: BRENNA JENSEN 24 HR Interval Summary Free Text/Dictation Patient slowly improving, less shortness of breath but still with cough. Denies chest pain Exam/Review of Systems Vital Signs Vitals Vital Signs Date Time Temp Pulse Resp B/P Pulse Ox O2 Delivery O2 Flow Rate FiO2 03/20/16 12:12 70 03/20/16 11:00 98.0 19 120/57 96 03/20/16 08:31 21 03/20/16 08:00 Nasal Cannula 1.0 Intake and Output 03/19/16 03/19/16 03/20/16 15:00 23:00 07:00 Intake Total 1080 ml 350 ml Output Total 1500 ml 0 ml Balance -420 ml 350 ml Exam No apparent distress Constitutional: alert, frail, oriented Neck: supple Respiratory: other (course breath sounds bilaterally, crackles at the left base ) Cardiovascular: other (S1-S2 heard), regular rate and rhythm Gastrointestinal: bowel sounds, non-tender, soft Extremities: other (no edema) Results Result Diagram: 03/20/16 0625 03/20/16 0625 Results 24 hrs Laboratory Tests Test 03/20/16 06:25 Anion Gap 21 H Basophils # 0.0 Basophils % 0.7 Blood Morphology Comment Blood Urea Nitrogen 24 #H Calcium Level 7.7 L Carbon Dioxide Level 25 Chloride Level 96 L Creatinine 3.25 #H Eosinophils # 0.7 H Eosinophils % 9.5 H Glucose Level 82 Hematocrit 27.6 L Hemoglobin 9.4 L Lymphocytes # 2.4 Lymphocytes % 32.8 Mean Corpuscular Hemoglobin 34.9 H Mean Corpuscular Hemoglobin Concent 34.1 Mean Corpuscular Volume 102.3 H Mean Platelet Volume 9.9 Monocytes # 0.6 Monocytes % 8.9 Neutrophils # 3.5 Neutrophils % 48.1 Nucleated Red Blood Cells # 0.0 Nucleated Red Blood Cells % 0.0 Platelet Count 75 #L Potassium Level 4.2 Red Blood Count 2.69 L Red Cell Distribution Width 17.4 H Sodium Level 138 White Blood Count 7.2 Medications Medications Current Medications Pantoprazole (Protonix Iv) 40 mg DAILY@06 IV Last administered on 03/20/16 05: 46; Admin Dose 40 MG; Start 03/14/16 at 06:00 Aspirin (Aspirin) 81 mg DAILY PO Last administered on 03/20/16 08:35; Admin Dose 81 MG; Start 03/14/16 at 09:00 Lactobacillus Acidophilus/ Rhamnosus (Culturelle) 1 cap BID PO Last administered on 03/20/16 08:35; Admin Dose 1 CAP; Start 03/15/16 at 21:00 Morphine Sulfate 2 mg 2 mg Q6 PRN IV pain; Start 03/16/16 at 22:04 Meropenem/Sodium Chloride (Merrem/NS) 100 ml @ 200 mls/hr DAILY IVPB Last administered on 03/20/16 08:35; Admin Dose 200 MLS/HR; Start 03/18/16 at 09:00 Metoprolol Tartrate (Lopressor) 25 mg BID PO Last administered on 03/20/16 08: 36; Admin Dose 25 MG; Start 03/18/16 at 21:00 Jonathan Woodard DO Mar 20, 2016 13:01
--- NOTE | 2016-03-20 13:48 | PN ---
Date/Time of Note Date/Time of Note DATE: 03/20/16 TIME: 13:45 Assessment/Plan VTE Prophylaxis VTE Prophylaxis Intervention: SCD's Lines/Catheters IV Catheter Type (from [facility] [place]): Saline Lock Urinary Cath still in place: No Assessment/Plan Chief Complaint/Hosp Course ASSESSMENT AND PLAN: 1. Multilobar pneumonia. Continue meropenem. Dr. Glover is following an infection disease consultation. 2. Influenza A, continue Tamiflu. 3. Acute respiratory distress, resolving. Continue oxygen supplementation and bronchodilators. Dr. Reed to see patient in pulmonology consultation. 2. End-stage renal disease, hemodialysis dependent. Dr. Lake is following patient in nephrology consultation. 3. Positive troponin. Dr Red is following in cardiology consultation. Continue aspirin. 4. Permanent pacemaker. 5. Hypertension, currently patient is normotensive. 6. Anemia of chronic disease. 7. Legally blind. 8. Thrombocytopenia. 9. Pulmonary edema. Continue remove fluids with hemodialysis. 10. Transam[address]. Dr. Herrera is following in gastroenterology consultation. Anticipate d/c home tomorrow after completion of the last dose of antibiotics. Patient await PT evaluation. Continue Protonix for peptic ulcer disease prophylaxis. Further recommendations based on clinical course. Plan of care discussed with Dr. Goldman. Problems: Subjective 24 Hr Interval Summary Free Text/Dictation Patient is comfortable on room air, denies shortness of breath, complains of cough. Exam/Review of Systems Vital Signs Vitals Vital Signs Date Time Temp Pulse Resp B/P Pulse Ox O2 Delivery O2 Flow Rate FiO2 03/20/16 12:12 70 03/20/16 11:00 98.0 19 120/57 96 03/20/16 08:31 21 03/20/16 08:00 Nasal Cannula 1.0 Intake and Output 03/19/16 03/19/16 03/20/16 15:00 23:00 07:00 Intake Total 1080 ml 350 ml Output Total 1500 ml 0 ml Balance -420 ml 350 ml Exam GENERAL: This is a well-developed, cachectic female, awake, alert. HEENT: The patient is legally blind. Oral mucosa is pink and moist. NECK: Supple. No cervical lymphadenopathy. LUNGS: With scattered rhonchi, diminished at the bases. CARDIOVASCULAR: Normal S1, S2. No murmurs, gallops, clicks, rubs noted. ABDOMEN: Flat, soft, nondistended, nontender. Bowel sounds present. No guarding, no tenderness. EXTREMITIES: With prominent muscle wasting. Right upper extremity with AV fistula. No cyanosis noted. Pulses equal bilaterally 2+. SKIN: There is no rash noted. NEUROLOGIC: The patient is awake, alert, and oriented to name and situation. No focal deficits noted. Results Result Diagram: 03/20/16 0625 03/20/16 0625 Results 24 hrs Laboratory Tests Test 03/20/16 06:25 Anion Gap 21 H Basophils # 0.0 Basophils % 0.7 Blood Morphology Comment Blood Urea Nitrogen 24 #H Calcium Level 7.7 L Carbon Dioxide Level 25 Chloride Level 96 L Creatinine 3.25 #H Eosinophils # 0.7 H Eosinophils % 9.5 H Glucose Level 82 Hematocrit 27.6 L Hemoglobin 9.4 L Lymphocytes # 2.4 Lymphocytes % 32.8 Mean Corpuscular Hemoglobin 34.9 H Mean Corpuscular Hemoglobin Concent 34.1 Mean Corpuscular Volume 102.3 H Mean Platelet Volume 9.9 Monocytes # 0.6 Monocytes % 8.9 Neutrophils # 3.5 Neutrophils % 48.1 Nucleated Red Blood Cells # 0.0 Nucleated Red Blood Cells % 0.0 Platelet Count 75 #L Potassium Level 4.2 Red Blood Count 2.69 L Red Cell Distribution Width 17.4 H Sodium Level 138 White Blood Count 7.2 Medications Medications Current Medications Pantoprazole (Protonix Iv) 40 mg DAILY@06 IV Last administered on 03/20/16 05: 46; Admin Dose 40 MG; Start 03/14/16 at 06:00 Aspirin (Aspirin) 81 mg DAILY PO Last administered on 03/20/16 08:35; Admin Dose 81 MG; Start 03/14/16 at 09:00 Lactobacillus Acidophilus/ Rhamnosus (Culturelle) 1 cap BID PO Last administered on 03/20/16 08:35; Admin Dose 1 CAP; Start 03/15/16 at 21:00 Morphine Sulfate 2 mg 2 mg Q6 PRN IV pain; Start 03/16/16 at 22:04 Meropenem/Sodium Chloride (Merrem/NS) 100 ml @ 200 mls/hr DAILY IVPB Last administered on 03/20/16 08:35; Admin Dose 200 MLS/HR; Start 03/18/16 at 09:00 Metoprolol Tartrate (Lopressor) 25 mg BID PO Last administered on 03/20/16t 08: 36; Admin Dose 25 MG; Start 03/18/16 at 21:00 BRENNA JENSEN Mar 20, 2016 13:48
[2016-03-20 13:50] LABS: MITOCHONDRIAL TB NEGATIVE (NEGATIVE)
--- NOTE | 2016-03-20 14:55 | PN ---
DATE: 03/20/2016 REASON FOR FOLLOWUP: Respiratory distress. Patient clinically remains stable, no respiratory distr ess. PHYSICAL EXAMINATION: VITAL SIGNS: Temperature 98, pulse is 70, blood pressure 120/75, O2 saturation 96% on 1 liter nasal cannula. NECK: Supple. No JVD or lymphadenopathy. CARDIAC: S1, S2, no added sounds or murmurs. CHEST: Diminished air entry bilaterally but no rales or wheezes. ABDOMEN: Soft, nontender. No guarding or rebound. EXTREMITIES: No cyanosis, clubbing, edema. NEUROLOGIC: Grossly intact. No focal deficits. IMPRESSION AND PLAN: 1. Resolving pneumonia. 2. End-stage renal failure on hemodialysis. 3. Legally blind secondary to retinitis pigmentosa. PLAN: 1. Continue ID recommendations. 2. However, from pulmonary standpoint, the patient is stable to be discharged home and I will discu ss this with primary care physician. Dictated By: CAREN ALANIS/HEIDE Conf#: [id number] DID#: [id number]
--- NOTE | 2016-03-20 15:11 | CONS ---
Date/Time of Note Date/Time of Note DATE: 03/20/16 TIME: 15:10 Assessment/Plan Assessment/Plan Chief Complaint/Hosp Course The patient is a 25 year old female with past medical history of end-stage renal disease, hemodialysis-dependent, legal blindness, with multilobar pneumonia with lactic acid 16.2, on vancomycin and zosyn, as well as influenza A , with thrombocytopenia. Thrombocytopenia likely related to sepsis as well as possible contribution from both vancomycin and zosyn. Platelets continue to improve - HIV, Hep B/C neg. - Peripheral smear with path review ordered, which showed decreased platelets, no clumping, no schistocytes. - Will continue to follow counts. Consider switching antibiotics if platelets continue to decline but for now can continue current antibiotic regimen Problems: Consultation Date/Type/Reason Admit Date/Time Mar 13, 2016 at 13:38 Initial Consult Date 03/15/16 Type of Consultation: Hematology Reason for Consultation pneumonia Referring Provider: BRENNA JENSEN 24 HR Interval Summary Free Text/Dictation no acute overnight events. breathing better. platelets are improving Exam/Review of Systems Vital Signs Vitals Vital Signs Date Time Temp Pulse Resp B/P Pulse Ox O2 Delivery O2 Flow Rate FiO2 03/20/16 14:36 70 18 96 21 03/20/16 11:00 98.0 120/57 03/20/16 08:00 Nasal Cannula 1.0 Intake and Output 03/19/16 03/19/16 03/20/16 15:00 23:00 07:00 Intake Total 1080 ml 350 ml Output Total 1500 ml 0 ml Balance -420 ml 350 ml Exam Constitutional: alert, oriented Head: atraumatic, normocephalic Eyes: nl conjunctiva ENMT: nl external ears & nose Neck: supple Respiratory: clear to auscultation, diminished breath sounds, labored breathing Cardiovascular: regular rate and rhythm Gastrointestinal: soft Musculoskeletal: nl extremities to inspection, nl gait and stance Extremities: normal pulses Results Result Diagram: 03/20/16 0625 03/20/16 0625 Results 24 hrs Laboratory Tests Test 03/20/16 06:25 Anion Gap 21 H Basophils # 0.0 Basophils % 0.7 Blood Morphology Comment Blood Urea Nitrogen 24 #H Calcium Level 7.7 L Carbon Dioxide Level 25 Chloride Level 96 L Creatinine 3.25 #H Eosinophils # 0.7 H Eosinophils % 9.5 H Glucose Level 82 Hematocrit 27.6 L Hemoglobin 9.4 L Lymphocytes # 2.4 Lymphocytes % 32.8 Mean Corpuscular Hemoglobin 34.9 H Mean Corpuscular Hemoglobin Concent 34.1 Mean Corpuscular Volume 102.3 H Mean Platelet Volume 9.9 Monocytes # 0.6 Monocytes % 8.9 Neutrophils # 3.5 Neutrophils % 48.1 Nucleated Red Blood Cells # 0.0 Nucleated Red Blood Cells % 0.0 Platelet Count 75 #L Potassium Level 4.2 Red Blood Count 2.69 L Red Cell Distribution Width 17.4 H Sodium Level 138 White Blood Count 7.2 Medications Medications Current Medications Pantoprazole (Protonix Iv) 40 mg DAILY@06 IV Last administered on 03/20/16 05: 46; Admin Dose 40 MG; Start 03/14/16 at 06:00 Aspirin (Aspirin) 81 mg DAILY PO Last administered on 03/20/16 08:35; Admin Dose 81 MG; Start 03/14/16 at 09:00 Lactobacillus Acidophilus/ Rhamnosus (Culturelle) 1 cap BID PO Last administered on 03/20/16 08:35; Admin Dose 1 CAP; Start 03/15/16 at 21:00 Morphine Sulfate 2 mg 2 mg Q6 PRN IV pain; Start 03/16/16 at 22:04 Meropenem/Sodium Chloride (Merrem/NS) 100 ml @ 200 mls/hr DAILY IVPB Last administered on 03/20/16 08:35; Admin Dose 200 MLS/HR; Start 03/18/16 at 09:00 Metoprolol Tartrate (Lopressor) 25 mg BID PO Last administered on 03/20/16 08: 36; Admin Dose 25 MG; Start 03/18/16 at 21:00 DANA CHEUNG M.D. Mar 20, 2016 15:11
[2016-03-20 17:03] LABS: ANA SCREEN POSITIVE (NEGATIVE); ANA TITER 1:40 titer
--- NOTE | 2016-03-20 18:05 | CONS ---
Date/Time of Note Date/Time of Note DATE: 03/20/16 TIME: 18:03 Assessment/Plan Assessment/Plan Chief Complaint/Hosp Course Assessment/Impression: - influenza A bronchitis - on tamiflu - possibly concurrent HCAP, multi-lobar - sputum cx grew normal respiratory alexandra; on meropenem - s/p sepsis d/t above. Fever and tachypnea resolved. 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 - positive troponin on admission in setting of resp distress and chronic renal failure - NSVT - Hx CHB s/p PPM - S/p Vanco (03/13-03/15), pip/tazo (03/14-03/16), and zithromax (03/16/16) Recommendations: - continue oseltamivir (03/13/16-) to finish 03/23/16 - continue meropenem (03/16/16-) through 03/21/16 - probiotics - trend platelet count (upward trending); appreciate Hematology input - appreciate GI eval for transaminitis - outpatient f/u with ID after discharge - management and dc plans d/w pt and family - Above d/w Dr. Lenz Problems: Consultation Date/Type/Reason Admit Date/Time Mar 13, 2016 at 13:38 Initial Consult Date 03/14/16 Type of Consultation: Infectious Disease Referring Provider: BRENNA JENSEN 24 HR Interval Summary Free Text/Dictation Had extra HD done yesterday which pt was unable to complete as she did not feel well because she had not eaten and planning to have HD done today per pt's brother. Still with persistent cough. Denies fever, chills, CP, SOB, abd pain, n/v/d. Planing to DC home tomorrow after last dose of Meropenem per JUNI Davis. Exam/Review of Systems Vital Signs Vitals Vital Signs Date Time Temp Pulse Resp B/P Pulse Ox O2 Delivery O2 Flow Rate FiO2 03/20/16 16:44 70 03/20/16 15:15 98.1 19 125/61 98 1/17/17 14:36 21 03/20/16 08:00 Nasal Cannula 1.0 Intake and Output 03/19/16 03/19/16 03/20/16 15:00 23:00 07:00 Intake Total 1080 ml 350 ml Output Total 1500 ml 0 ml Balance -420 ml 350 ml Exam Constitutional: alert, frail, oriented, other (small in stature) Head: atraumatic, normocephalic Neck: supple Respiratory: diminished breath sounds. No wheezing Cardiovascular: other (left chest wall PM noted intact), regular rate and rhythm Gastrointestinal: bowel sounds, non-tender, soft Musculoskeletal: nl extremities to inspection Extremities: normal pulses, other (RUE AVF with good bruit and thrill), No clubbing, No edema Neurological: nl mental status, nl speech Skin: nl turgor Results Result Diagram: 03/20/16 0625 03/20/16 0625 Results 24 hrs Laboratory Tests Test 03/20/16 06:25 Anion Gap 21 H Basophils # 0.0 Basophils % 0.7 Blood Morphology Comment Blood Urea Nitrogen 24 #H Calcium Level 7.7 L Carbon Dioxide Level 25 Chloride Level 96 L Creatinine 3.25 #H Eosinophils # 0.7 H Eosinophils % 9.5 H Glucose Level 82 Hematocrit 27.6 L Hemoglobin 9.4 L Lymphocytes # 2.4 Lymphocytes % 32.8 Mean Corpuscular Hemoglobin 34.9 H Mean Corpuscular Hemoglobin Concent 34.1 Mean Corpuscular Volume 102.3 H Mean Platelet Volume 9.9 Monocytes # 0.6 Monocytes % 8.9 Neutrophils # 3.5 Neutrophils % 48.1 Nucleated Red Blood Cells # 0.0 Nucleated Red Blood Cells % 0.0 Platelet Count 75 #L Potassium Level 4.2 Red Blood Count 2.69 L Red Cell Distribution Width 17.4 H Sodium Level 138 White Blood Count 7.2 Medications Medications Current Medications Aspirin (Aspirin) 81 mg DAILY PO Last administered on 03/20/16 08:35; Admin Dose 81 MG; Start 03/14/16 at 09:00 Lactobacillus Acidophilus/ Rhamnosus (Culturelle) 1 cap BID PO Last administered on 03/20/16 08:35; Admin Dose 1 CAP; Start 03/15/16 at 21:00 Morphine Sulfate 2 mg 2 mg Q6 PRN IV pain; Start 03/16/16 at 22:04 Meropenem/Sodium Chloride (Merrem/NS) 100 ml @ 200 mls/hr DAILY IVPB Last administered on 03/20/16 08:35; Admin Dose 200 MLS/HR; Start 03/18/16 at 09:00 Metoprolol Tartrate (Lopressor) 25 mg BID PO Last administered on 03/20/16 08: 36; Admin Dose 25 MG; Start 03/18/16 at 21:00 Pantoprazole (Protonix Tab) 40 mg DAILY@06 PO ; Start 03/21/16 at 06:00 Procedures Procedures ABD US 03/14/16: Bilateral atrophic echogenic kidneys compatible with sequelae of renal parenchymal disease. Mild increased periportal echogenicity which may be related to periportal edema given the history of hepatitis. There is no evidence of hepatic mass or fluid collection. CXR 03/14/16: FINDINGS: Bilateral air space disease consistent with pulmonary edema or multifocal pneumonia slightly improved. There is a left-sided dual lead permanent pacemaker. The heart is enlarged. There is no pleural effusion. There is no pneumothorax. IMPRESSION: 1. Slightly improved appearance of the lungs. 2. No other change from 03/13/2016. CXR 03/13/16: Moderate cardiomegaly with pulmonary vascular congestion. Bilateral perihilar and lower lobe infiltrates. Right upper lobe infiltrate. DION TORRES NP Mar 20, 2016 18:04
[2016-03-20] MEDS: OSELTAMIVIR 30 MG CAP PO SCH (22:04)
[2016-03-21] VITALS (9 sets, daily range): BP systolic 97–118; BP diastolic 53–67; PULSE 70; RESP 18
[2016-03-21] MEDS: LEVALBUTEROL (NEB) 0.63 MG/3 ML AMP HHN SCH ×3 (02:00→14:28)
[2016-03-21] MEDS ORDERED: PANTOPRAZOLE (EC) 40 MG TAB PO SCH (06:00)
[2016-03-21 07:12] LABS: BASOPHILS % 0.6 % (0.0-2.0); EOSINOPHILS # 0.7 10^3/ul (0.0-0.5); EOSINOPHILS % 10.5 % (0.0-7.0); HEMATOCRIT 31.2 % (37.0-47.0); HEMOGLOBIN 10.5 g/dl (12.0-16.0); LYMPHOCYTES # 2.1 10^3/ul (0.8-2.9); LYMPHOCYTES % 32.1 % (15.0-51.0); MEAN CORPUSCULAR HEMOGLOBIN 34.3 pg (29.0-33.0); MEAN CORPUSCULAR HGB CONC 33.6 g/dl (32.0-37.0); MEAN CORPUSCULAR VOLUME 101.9 fl (82.0-101.0); MEAN PLATELET VOLUME 9.6 fl (7.4-10.4); MONOCYTE # 0.7 10^3/ul (0.3-0.9); MONOCYTES % 10.9 % (0.0-11.0); NEUTROPHILS % 45.9 % (39.0-77.0); PLATELET COUNT 96 10^3/UL (140-440); RED BLOOD COUNT 3.06 10^6/ul (4.20-5.40); RED CELL DISTRIBUTION WIDTH 17.9 % (11.5-14.5); UNCORRECTED WBC 6.5 10^3/ul (4.8-10.8); WHITE BLOOD COUNT 6.5 10^3/ul (4.8-10.8)
[2016-03-21 07:16] LABS: CONDITION 1; LH ANALYZER COMMENTS 1; SUSPECT 1
[2016-03-21 07:31] LABS: ALBUMIN 3.7 g/dl (3.3-4.9)
[2016-03-21 07:32] LABS: POTASSIUM 3.6 mmol/L (3.5-5.1)
[2016-03-21 07:34] LABS: CREATININE 3.32 mg/dl (0.44-1.00)
[2016-03-21 07:35] LABS: BILIRUBIN,INDIRECT 0.5 mg/dl (0-1.1); BILIRUBIN,TOTAL 0.5 mg/dl (0.2-1.3); CALCIUM 7.4 mg/dl (8.4-10.2); TOTAL PROTEIN 7.4 g/dl (6.1-8.1)
--- NOTE | 2016-03-21 09:12 | CONS ---
Date/Time of Note Date/Time of Note DATE: 03/21/16 TIME: 09:11 Assessment/Plan Assessment/Plan Chief Complaint/Hosp Course The patient is a 25 year old female with past medical history of end-stage renal disease, hemodialysis-dependent, legal blindness, with multilobar pneumonia with lactic acid 16.2, on vancomycin and zosyn, as well as influenza A , with thrombocytopenia. Thrombocytopenia likely related to sepsis as well as possible contribution from both vancomycin and zosyn. Platelets continue to improve, now 96,000. - HIV, Hep B/C neg. - Peripheral smear with path review ordered, which showed decreased platelets, no clumping, no schistocytes. - Will continue to follow counts. Now s/p pip/tazo (d/c'd 03/16/16) and vancomycin (d/c'd 03/15/16), now on meropenem. Can continue current antibiotic regimen. Problems: Consultation Date/Type/Reason Admit Date/Time Mar 13, 2016 at 13:38 Initial Consult Date 03/15/16 Type of Consultation: Hematology/Oncology Referring Provider: BRENNA JENSEN 24 HR Interval Summary Free Text/Dictation Patient doing well, cough improved, denies SOB. No bleeding. May be going home soon per family. Exam/Review of Systems Vital Signs Vitals Vital Signs Date Time Temp Pulse Resp B/P Pulse Ox O2 Delivery O2 Flow Rate FiO2 03/21/16 08:33 70 03/21/16 08:03 98.5 18 115/65 98 03/20/16 20:17 21 03/20/16 19:48 Nasal Cannula 1.0 Intake and Output 03/20/16 03/20/16 03/21/16 14:59 22:59 06:59 Intake Total 1080 ml 350 ml Output Total 1500 ml 1000 ml Balance -420 ml -650 ml Exam Constitutional: alert, oriented Head: atraumatic, normocephalic Eyes: nl conjunctiva ENMT: nl external ears & nose Neck: supple Respiratory: clear to auscultation, diminished breath sounds, labored breathing Cardiovascular: regular rate and rhythm Gastrointestinal: soft Musculoskeletal: nl extremities to inspection, nl gait and stance Extremities: normal pulses Results Result Diagram: 03/21/16 0608 03/21/16 0608 Results 24 hrs Laboratory Tests Test 03/21/16 06:08 Alanine Aminotransferase (ALT/SGPT) 474 H Albumin 3.7 Albumin/Globulin Ratio 1.00 Alkaline Phosphatase 204 H Anion Gap 21 H Aspartate Amino Transf (AST/SGOT) 188 H Basophils # 0.0 Basophils % 0.6 Blood Morphology Comment Blood Urea Nitrogen 21 H Calcium Level 7.4 L Carbon Dioxide Level 28 Chloride Level 96 L Creatinine 3.32 H Direct Bilirubin 0.00 Eosinophils # 0.7 H Eosinophils % 10.5 H Globulin 3.70 H Glucose Level 79 Hematocrit 31.2 L Hemoglobin 10.5 L Indirect Bilirubin 0.5 Lymphocytes # 2.1 Lymphocytes % 32.1 Mean Corpuscular Hemoglobin 34.3 H Mean Corpuscular Hemoglobin Concent 33.6 Mean Corpuscular Volume 101.9 H Mean Platelet Volume 9.6 Monocytes # 0.7 Monocytes % 10.9 Neutrophils # 3.0 Neutrophils % 45.9 Nucleated Red Blood Cells # 0.0 Nucleated Red Blood Cells % 0.0 Platelet Count 96 #L Potassium Level 3.6 Red Blood Count 3.06 L Red Cell Distribution Width 17.9 H Sodium Level 141 Total Bilirubin 0.5 Total Protein 7.4 White Blood Count 6.5 Medications Medications Current Medications Aspirin (Aspirin) 81 mg DAILY PO Last administered on 03/20/16 08:35; Admin Dose 81 MG; Start 03/14/16 at 09:00 Lactobacillus Acidophilus/ Rhamnosus (Culturelle) 1 cap BID PO Last administered on 03/20/16 22:04; Admin Dose 1 CAP; Start 03/15/16 at 21:00 Morphine Sulfate 2 mg 2 mg Q6 PRN IV pain; Start 03/16/16 at 22:04 Meropenem/Sodium Chloride (Merrem/NS) 100 ml @ 200 mls/hr DAILY IVPB Last administered on 03/20/16 08:35; Admin Dose 200 MLS/HR; Start 03/18/16 at 09:00 Metoprolol Tartrate (Lopressor) 25 mg BID PO Last administered on 03/20/16 08: 36; Admin Dose 25 MG; Start 03/18/16 at 21:00 Pantoprazole (Protonix Tab) 40 mg DAILY@06 PO Last administered on 03/21/16 06 :27; Admin Dose 40 MG; Start 03/21/16 at 06:00 JODY QUARLES MD Mar 21, 2016 09:12
[2016-03-21] MEDS: MEROPENEM 500 MG in SOD CHLORIDE 0.9% 100 ML IVPB SCH (09:26)
[2016-03-21] MEDS: ASPIRIN 81 MG TAB PO SCH (09:26)
[2016-03-21] MEDS: LACTOBACILLUS RHAMNOSUS CAP PO SCH (09:26)
[2016-03-21] MEDS: METOPROLOL 25 MG TAB PO SCH (09:27)
--- NOTE | 2016-03-21 09:46 | CONS ---
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 - positive troponin on admission in setting of resp distress and chronic renal failure - NSVT - Hx CHB s/p PPM - S/p Vanco (03/13-03/15) and pip/tazo (03/14-03/16) Recommendations: - continue oseltamivir (03/13/16-) to finish 03.23.16 - continue meropenem (03/16/16-) through 03.21.16 - probiotics - trend platelet count; appreciate Hematology input - appreciate GI eval for transaminitis Problems: Additional Assessment/Plan Assessment/Impression: - influenza A bronchitis - on tamiflu - possibly concurrent HCAP, multi-lobar - sputum cx grew normal respiratory alexandra; on meropenem - s/p sepsis d/t above. Fever and tachypnea resolved. 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 - positive troponin on admission in setting of resp distress and chronic renal failure - NSVT - Hx CHB s/p PPM - S/p Vanco (03/13-03/15), pip/tazo (03/14-03/16), and zithromax (03/16/16) Recommendations: - continue oseltamivir (03/13/16-) to finish 03/23/16 - continue meropenem (03/16/16-) through 03/21/16 - probiotics - trend platelet count (upward trending); appreciate Hematology input - appreciate GI eval for transaminitis - outpatient f/u with ID after discharge - management and dc plans d/w pt and family Consultation Date/Type/Reason Admit Date/Time Mar 13, 2016 at 13:38 Initial Consult Date 03/14/16 Type of Consultation: id Referring Provider: BRENNA JENSEN 24 HR Interval Summary Free Text/Dictation family anxious to return home Exam/Review of Systems Vital Signs Vitals Vital Signs Date Time Temp Pulse Resp B/P Pulse Ox O2 Delivery O2 Flow Rate FiO2 03/21/16 09:42 97 21 03/21/16 09:42 71 20 03/21/16 08:03 98.5 115/65 03/20/16 19:48 Nasal Cannula 1.0 Intake and Output 03/20/16 03/20/16 03/21/16 15:00 23:00 07:00 Intake Total 1080 ml 350 ml Output Total 1500 ml 1000 ml Balance -420 ml -650 ml Results Result Diagram: 03/21/16 0608 03/21/16 0608 Results 24 hrs Laboratory Tests Test 03/21/16 06:08 Alanine Aminotransferase (ALT/SGPT) 474 H Albumin 3.7 Albumin/Globulin Ratio 1.00 Alkaline Phosphatase 204 H Anion Gap 21 H Aspartate Amino Transf (AST/SGOT) 188 H Basophils # 0.0 Basophils % 0.6 Blood Morphology Comment Blood Urea Nitrogen 21 H Calcium Level 7.4 L Carbon Dioxide Level 28 Chloride Level 96 L Creatinine 3.32 H Direct Bilirubin 0.00 Eosinophils # 0.7 H Eosinophils % 10.5 H Globulin 3.70 H Glucose Level 79 Hematocrit 31.2 L Hemoglobin 10.5 L Indirect Bilirubin 0.5 Lymphocytes # 2.1 Lymphocytes % 32.1 Mean Corpuscular Hemoglobin 34.3 H Mean Corpuscular Hemoglobin Concent 33.6 Mean Corpuscular Volume 101.9 H Mean Platelet Volume 9.6 Monocytes # 0.7 Monocytes % 10.9 Neutrophils # 3.0 Neutrophils % 45.9 Nucleated Red Blood Cells # 0.0 Nucleated Red Blood Cells % 0.0 Platelet Count 96 #L Potassium Level 3.6 Red Blood Count 3.06 L Red Cell Distribution Width 17.9 H Sodium Level 141 Total Bilirubin 0.5 Total Protein 7.4 White Blood Count 6.5 Medications Medications Current Medications Aspirin (Aspirin) 81 mg DAILY PO Last administered on 03/21/16t 09:26; Admin Dose 81 MG; Start 03/14/16 at 09:00 Lactobacillus Acidophilus/ Rhamnosus (Culturelle) 1 cap BID PO Last administered on 03/21/16 09:26; Admin Dose 1 CAP; Start 03/15/16 at 21:00 Morphine Sulfate 2 mg 2 mg Q6 PRN IV pain; Start 03/16/16 at 22:04 Meropenem/Sodium Chloride (Merrem/NS) 100 ml @ 200 mls/hr DAILY IVPB Last administered on 03/21/16 09:26; Admin Dose 200 MLS/HR; Start 03/18/16 at 09:00 Metoprolol Tartrate (Lopressor) 25 mg BID PO Last administered on 03/21/16 09: 27; Admin Dose 25 MG; Start 03/18/16 at 21:00 Pantoprazole (Protonix Tab) 40 mg DAILY@06 PO Last administered on 03/21/16 06 :27; Admin Dose 40 MG; Start 03/21/16 at 06:00 NAVEEN XIE MD Mar 21, 2016 09:46
--- NOTE | 2016-03-21 14:16 | CONS ---
Date/Time of Note Date/Time of Note DATE: 03/21/16 TIME: 14:15 Consult Date/Type/Reason Admit Date/Time Mar 13, 2016 at 13:38 Initial Consult Date 03/15/16 Type of Consultation: pulmonary Ordering Provider: BRENNA JENSEN Subjective Patient stable this morning no new events Objective Vital Signs Date Time Temp Pulse Resp B/P Pulse Ox O2 Delivery O2 Flow Rate FiO2 03/21/16 12:31 70 03/21/16 09:42 97 21 03/21/16 09:42 20 03/21/16 08:15 Nasal Cannula 1.0 03/21/16 08:03 98.5 115/65 Intake and Output 03/20/16 03/20/16 03/21/16 14:59 22:59 06:59 Intake Total 1080 ml 350 ml Output Total 1500 ml 1000 ml Balance -420 ml -650 ml PHYSICAL EXAMINATION: VITAL SIGNS: As above NECK: Supple. No JVD or lymphadenopathy. CARDIAC: S1, S2, no added sounds or murmurs. CHEST: Diminished air entry bilaterally but no rales or wheezes. ABDOMEN: Soft, nontender. No guarding or rebound. EXTREMITIES: No cyanosis, clubbing, edema. NEUROLOGIC: Grossly intact. No focal deficits. Results/Medications Result Diagram: 03/21/16 0608 03/21/16 0608 Results 24 hrs Laboratory Tests Test 03/21/16 06:08 Alanine Aminotransferase (ALT/SGPT) 474 H Albumin 3.7 Albumin/Globulin Ratio 1.00 Alkaline Phosphatase 204 H Anion Gap 21 H Aspartate Amino Transf (AST/SGOT) 188 H Basophils # 0.0 Basophils % 0.6 Blood Morphology Comment Blood Urea Nitrogen 21 H Calcium Level 7.4 L Carbon Dioxide Level 28 Chloride Level 96 L Creatinine 3.32 H Direct Bilirubin 0.00 Eosinophils # 0.7 H Eosinophils % 10.5 H Globulin 3.70 H Glucose Level 79 Hematocrit 31.2 L Hemoglobin 10.5 L Indirect Bilirubin 0.5 Lymphocytes # 2.1 Lymphocytes % 32.1 Mean Corpuscular Hemoglobin 34.3 H Mean Corpuscular Hemoglobin Concent 33.6 Mean Corpuscular Volume 101.9 H Mean Platelet Volume 9.6 Monocytes # 0.7 Monocytes % 10.9 Neutrophils # 3.0 Neutrophils % 45.9 Nucleated Red Blood Cells # 0.0 Nucleated Red Blood Cells % 0.0 Platelet Count 96 #L Potassium Level 3.6 Red Blood Count 3.06 L Red Cell Distribution Width 17.9 H Sodium Level 141 Total Bilirubin 0.5 Total Protein 7.4 White Blood Count 6.5 Medications Current Medications Aspirin (Aspirin) 81 mg DAILY PO Last administered on 03/21/16 09:26; Admin Dose 81 MG; Start 03/14/16 at 09:00 Lactobacillus Acidophilus/ Rhamnosus (Culturelle) 1 cap BID PO Last administered on 03/21/16 09:26; Admin Dose 1 CAP; Start 03/15/16 at 21:00 Morphine Sulfate 2 mg 2 mg Q6 PRN IV pain; Start 03/16/16 at 22:04 Meropenem/Sodium Chloride (Merrem/NS) 100 ml @ 200 mls/hr DAILY IVPB Last administered on 03/21/16 09:26; Admin Dose 200 MLS/HR; Start 03/18/16 at 09:00 Metoprolol Tartrate (Lopressor) 25 mg BID PO Last administered on 03/21/16 09: 27; Admin Dose 25 MG; Start 03/18/16 at 21:00 Pantoprazole (Protonix Tab) 40 mg DAILY@06 PO Last administered on 03/21/16 06 :27; Admin Dose 40 MG; Start 03/21/16 at 06:00 Assessment/Plan Chief Complaint/Hosp Course IMPRESSION AND PLAN: 1. Resolving pneumonia. Influenza A positive 2. End-stage renal failure on hemodialysis. 3. Legally blind secondary to retinitis pigmentosa. PLAN: 1. Continue ID recommendations. Currently on meropenem consider DC this patient has normal WBC 2. Discharge planning Problems: CAREN WASSERMAN MD, [facility] Mar 21, 2016 14:16
[2016-03-21] MEDS ORDERED: LACT1CAP57 PO (14:40)
[2016-03-21] MEDS ORDERED: OSEL30CA PO (14:40)
[2016-03-21] MEDS ORDERED: METO-448 PO (14:40)
[2016-03-21] MEDS ORDERED: ASP81 PO (14:40)
--- NOTE | 2016-03-21 20:46 | PN ---
DATE: 03/21/2016 SUBJECTIVE: The patient was seen today. Shortness of breath is better. OBJECTIVE: VITAL SIGNS: Stable. NECK: Supple. LUNGS: Clear. CARDIOVASCULAR: S1, S2 normal. ABDOMEN: Soft, nontender. EXTREMITIES: No cyanosis, clubbing, edema. LABORATORY DATA: Hematocrit 31.2. Sodium 141, potassium 3.6. IMPRESSION: The patient has: 1. Influenza. 2. Pneumonia. 3. End-stage renal disease. 4. History of positive troponin. 5. Abnormal LFT. PLAN: Continue hemodialysis. Dictated By: DALLAS CABRAL MD BS/NTS Conf#: [id number] DID#: [id number]
--- NOTE | 2016-03-25 11:32 | DS ---
DATE OF ADMISSION: 03/13/2016 DATE OF DISCHARGE: 03/21/2016 FINAL DIAGNOSES: 1. Multilobar pneumonia, status post treatment. 2. Influenza A 3. Bronchitis. 4. Acute respiratory distress, resolved. 5. End-stage renal disease. 6. Acute respiratory distress, resolved. 7. End-stage renal disease, hemodialysis dependent. 8. Positive troponin. 9. Permanent pacemaker. 10. Hypertension. 11. Anemia of chronic disease. 12. Legally blind. 12. Thrombocytopenia. 13. Pulmonary edema. 14. Transaminitis secondary to shock liver. 15. Sepsis on admission secondary to multilobar pneumonia and influenza A, with lactic acidosis. BRIEF HISTORY: The patient is an unfortunate 25-year-old female with end-stage renal disease, hemod ialysis dependent. Patient is legally blind. The patient developed cough and fever and respiratory distress, and patient presented to the emergency room. In the emergency room patient was placed on BiPAP with some improvement in shortness of breath. Patient was also noted to have fever and eleva lucinda lactate. The patient was admitted for further evaluation and management. HOSPITAL COURSE: The patient was evaluated by Dr. Lenz in infectious disease consultation. [facility]'s influenza swab was positive for influenza A. Patient was started on Tamiflu and broad spectrum antibiotics. The patient was also evaluated by Dr. Reed in pulmonology consultation, was starte d on breathing treatments, steroids, and oxygen supplementation. The patient was also followed by Naty [place] in nephrology consultation, was continued on hemodialysis. The patient had elevated tropon in on admission of 2.17, was evaluated initially by Dr. Red and followed by Dr. Woodard in cardio logy consultation. The patient was also noted to have elevated liver enzymes and was evaluated by Naty Herrera in gastroenterology consultation, most likely the liver enzyme was trending down. Most li ten transaminitis will be related to severe sepsis. The patient also noted to have thrombocytopeni a and was evaluated by Dr. Guevara in hematology consultation. Patient HIV and hep C negative. The p aaliyah's condition has gradually improved. The patient was able to breathe comfortably on supplemen puma oxygen via nasal cannula. The patient has completed antibiotics for healthcare-acquired pneumon ia. The patient is discharged home. CONDITION ON DISCHARGE: Hemodynamically stable. ACTIVITY: As patient tolerates. DIET: Renal diet. DISCHARGE MEDICATIONS: The patient was given prescriptions for: 1. Aspirin. 2. Culturelle. 3. Metoprolol. 4. Tamiflu. 5. Patient is to continue on folic acid And Lalita-Abigail. DISCHARGE INSTRUCTIONS: The patient is instructed to follow up with her primary care physician in 1 -2 weeks and to follow up at hemodialysis center for the next hemodialysis. Interdisciplinary care was established for this patient. Plan of care was discussed with Dr. Ronnell sethi. Dictated By: BRENNA JENSEN MINI SHIFTER for GAGE TAMAYO MD SR/NTS Conf#: [id number] DID#: [id number]
== END 2016-03-21 16:05 | disposition home or self-care (01) | DRG 871 ==
LOC: E/R 12:19 → ICU 13:38 → TEL 03-14 11:00
PROVIDERS: ADMIT Internal Medicine; ATTEND Internal Medicine
PROC: 5A1D60Z (ICD-10-PCS; principal; 2016-03-16)
DX: A41.9 Sepsis, unspecified organism (principal); J18.0 Bronchopneumonia, unspecified organism; J96.01 Acute respiratory failure with hypoxia; K72.00 Acute and subacute hepatic failure without coma; G93.40 Encephalopathy, unspecified; J81.1 Chronic pulmonary edema; E87.2 Acidosis; J80 Acute respiratory distress syndrome; N18.6 End stage renal disease; I12.0 Hypertensive chronic kidney disease with stage 5 chronic kidney disease or end stage renal disease; I42.9 Cardiomyopathy, unspecified; J11.1 Influenza due to unidentified influenza virus with other respiratory manifestations; D63.8 Anemia in other chronic diseases classified elsewhere; Z99.2 Dependence on renal dialysis; R65.20 Severe sepsis without septic shock; Z95.0 Presence of cardiac pacemaker; H54.8 Legal blindness, as defined in USA; D69.59 Other secondary thrombocytopenia
CPT/HCPCS: 36600; 71010; 76700; 80048; 80053; 80061; 80076; 80202; 82550; 82553; 82803; 82962; 83036; 83605; 83690; 83735; 84145; 84484; 84703; 85025; 85049; 85362; 85378; 85384; 85610; 85670; 85730; 86038; 86255; 86703; 86704; 86709; 86803; 87040; 87070; 87081; 87340; 87400; 90686; 90935; 93005; 93306; 94640; 94660; 94664; 97116; 97162; C1751; C9113; J0456; J1580; J2185; J2543; J3370

== ENCOUNTER 2016-05-09 08:56 | Emergency (ER) | payer MEDICARE, MEDICAID ==
[~2016-05-09] VITALS: Ht 152.4 cm; Wt 70.0 kg
[~2016-05-09 08:56] MED LIST changes: +ASPI81TA3 PO; -CARSR60 PO; +LACT1CAP57 PO; +METO-448 PO; +OSEL30CA PO; -PANT40TA3 PO
[2016-05-09 09:01] VITALS: Ht 152.4 cm; Wt 70.0 kg
--- NOTE | 2016-05-09 11:38 | RADRPT ---
PROCEDURE: Chest x-ray CLINICAL INDICATION: Chest pain TECHNIQUE: Chest single view COMPARISON: 03/14/2016 FINDINGS: As before there is left chest multi lead pacemaker. Stable moderate cardiomegaly is identified. Th ere is ongoing moderate degree vascular congestion. Moderate size left pleural effusion is seen and small right pleural effusion. Bones are osteopenic. IMPRESSION: 1. Cardiomegaly with ongoing CHF and bilateral pleural effusions left greater than right. 2. Pacemaker RPTAT: HH .Monster Sweet MD, Date Time Electronically viewed and signed by .Monster Sweet MD, MD on 05/09/2016 11:38 .W/
--- NOTE | 2016-05-09 11:43 | RADRPT ---
PROCEDURE: XR left Shoulder. CLINICAL INDICATION: Left shoulder pain, trauma TECHNIQUE: 2 views of the left shoulder are available for review. COMPARISON: None available FINDINGS: There is no evidence of acute fracture or dislocation. There is a left-sided cardiac pacing device . Joint spaces are preserved. Visualized lung is clear. IMPRESSION: No radiographic evidence of acute osseous abnormality of the left shoulder. RPTAT: UU .Kj Hernandez MD, MD Date Time Electronically viewed and signed by .Kj Hernandez MD, on 05/09/2016 11:43 .K/
--- NOTE | 2016-05-09 11:48 | RADRPT ---
PROCEDURE: XR Cervical Spine. CLINICAL INDICATION: Neck pain, trauma TECHNIQUE: 2 views of the cervical spine were performed. Frontal, lateral, and AP open-mouth odont oid. The images were reviewed on a PACS workstation. COMPARISON: None. FINDINGS: There is borderline prevertebral soft tissue prominence, measuring 6 mm at C3.. No radiographic ev idence of acute fracture is seen. There is straightening of the usual cervical lordosis. Vertebral body heights are preserved. Alignment is otherwise normal. Lung apices are clear. IMPRESSION: 1. Borderline prevertebral soft tissue prominence, not definitive. However, in the setting of trau ma a CT scan is recommended for further evaluation. 2. No definite radiographic evidence of acute osseous abnormality though CT would be significantly more sensitive and is recommended in the setting of trauma. RPTAT: UU .Kj Hernandez MD, MD Date Time Electronically viewed and signed by .Kj Hernandez MD, on 05/09/2016 11:48 .K/
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
[2016-05-09 12:49] VITALS: BP 120/81; PULSE 67; RESP 18
== END 2016-05-09 12:54 | disposition home or self-care (01) ==
LOC: FTE 08:56
DX: S49.92XA Unspecified injury of left shoulder and upper arm, initial encounter (principal); R07.9 Chest pain, unspecified; S19.9XXA Unspecified injury of neck, initial encounter; I12.0 Hypertensive chronic kidney disease with stage 5 chronic kidney disease or end stage renal disease; N18.6 End stage renal disease; V49.50XA Passenger injured in collision with unspecified motor vehicles in traffic accident, initial encounter; Z95.0 Presence of cardiac pacemaker; Z79.82 Long term (current) use of aspirin
CPT/HCPCS: 71010; 72040; 73020

== ENCOUNTER 2016-11-05 21:19 | Observation (INO) | payer MEDICARE, MEDICAID ==
[~2016-11-05] VITALS: Ht 139.7 cm; Wt 31.3 kg
[2016-11-05 22:17] LABS: BASOPHIL # 0.1 10^3/ul (0.0-0.1); BASOPHILS % 0.5 % (0.0-2.0); EOSINOPHILS # 0.7 10^3/ul (0.0-0.5); EOSINOPHILS % 6.5 % (0.0-7.0); HEMATOCRIT 34.1 % (37.0-47.0); HEMOGLOBIN 11.3 g/dl (12.0-16.0); LYMPHOCYTES # 1.6 10^3/ul (0.8-2.9); LYMPHOCYTES % 14.5 % (15.0-51.0); MEAN CORPUSCULAR HEMOGLOBIN 34.2 pg (29.0-33.0); MEAN CORPUSCULAR HGB CONC 33.1 g/dl (32.0-37.0); MEAN CORPUSCULAR VOLUME 103.3 fl (82.0-101.0); MEAN PLATELET VOLUME 9.8 fl (7.4-10.4); MONOCYTE # 0.5 10^3/ul (0.3-0.9); MONOCYTES % 4.9 % (0.0-11.0); NEUTROPHILS % 73.2 % (39.0-77.0); PLATELET COUNT 144 10^3/UL (140-415); RED CELL DISTRIBUTION WIDTH 12.7 % (11.5-14.5); WHITE BLOOD COUNT 10.8 10^3/ul (4.8-10.8)
[2016-11-05 22:22] LABS: URINE BLOOD (Dip) POC 2+ (NEGATIVE)
[2016-11-05 22:33] LABS: ALBUMIN 4.7 g/dl (3.3-4.9); ALBUMIN/GLOBULIN RATIO 1.11; BILIRUBIN,INDIRECT 0.1 mg/dl (0-1.1); BILIRUBIN,TOTAL 0.1 mg/dl (0.2-1.3); CALCIUM 7.5 mg/dl (8.4-10.2); CREATININE 9.11 mg/dl (0.44-1.00); TOTAL PROTEIN 8.9 g/dl (6.1-8.1)
--- NOTE | 2016-11-05 23:15 | RADRPT ---
PROCEDURE: CT ABDOMEN AND PELVIS WITHOUT CONTRAST: CLINICAL INDICATION: 26 years of age, female , abdominal pain. History of end-stage renal diseas e on dialysis with pacemaker.. COMPARISON: None available. TECHNIQUE: CT of the abdomen and pelvis was performed without intravenous contrast. Oral contrast wa s not administered prior to the examination. Coronal and sagittal reformatted images were obtained from the axial source images. Images were revi ewed on a high-resolution PACS workstation. Dose information: Based on a 32 cm phantom, the estimated radiation dose (CTDI vol mGy) for each ser ies in this exam is 7.5. The estimated cumulative dose (DLP mGy-cm) is 343. One or more of the following dose reduction techniques were used: - Automated exposure control. - Adjustment of the mA and/or kV according to patient size. - Use of iterative reconstruction technique. FINDINGS: In the absence of intravenous contrast, the study constitutes a limited assessment of the solid orga ns, bowel and vessels. LUNG BASES: There is a pacemaker with an electrode in the right atrium and 2 electrodes in the right ventricle. There is cardiomegaly. Mild ground-glass opacity of bilateral lung bases may represent atelectasis. ABDOMEN/PELVIS: Liver: Normal noncontrast appearance. Gallbladder: Gallbladder is contracted with moderate edema in the surrounding fat. There may be a g allbladder wall thickening. Bile ducts: No intrahepatic or extrahepatic biliary duct dilatation. Spleen: Normal noncontrast appearance. Pancreas: Mild atrophy with fatty replacement. Adrenal glands: Normal noncontrast appearance. Kidneys and ureters: Small bilateral kidneys in keeping with known end-stage renal disease. Aorta and IVC: Normal noncontrast appearance. Negative for significant atherosclerosis. Lymph nodes: Normal noncontrast appearance. Gastrointestinal tract: Normal noncontrast appearance. Appendix: Normal Bladder: Bladder is contracted. Pelvic Organs: The uterus and adnexa are unremarkable. Peritoneal cavity: No free fluid or free intraperitoneal air. Abdominal wall: Normal noncontrast appearance. BONES: Musculoskeletal: In the lateral right pars interarticularis defect at L5 within nonfusion of the pos terior ring of L5 that is developmental. Bones are osteopenic. No suspicious bone lesions. IMPRESSION: Partially contracted gallbladder with edema in the surrounding fat. Evaluation is limited with nonc ontrast CT. Recommend further evaluation with right upper quadrant ultrasound to better evaluate fo r calculi and acute cholecystitis. Bilateral small kidneys in keeping with known end-stage renal disease. RPTAT: HCTS Rodney Gaming, Physician Date Time Electronically viewed and signed by Rodney Gaming, Physician on 11/05/2016 23:14 CS/
[2016-11-06] VITALS (10 sets, daily range): BP systolic 111–146; BP diastolic 65–97; PULSE 60–89; RESP 16–20; Ht 139.7 cm; Wt 31.3 kg
--- NOTE | 2016-11-06 00:23 | RADRPT ---
PROCEDURE: Ultrasound of the abdomen. CLINICAL INDICATION: Right upper quadrant pain. TECHNIQUE: Sonographic images of the abdomen were performed. COMPARISON: No pertinent prior examinations were submitted for comparison. FINDINGS: Liver: The liver is normal in echogencity and size measuring approximately 13.3 cm. The hepatic vei ns and portal veins are patent with appropriate directional flow. No intrahepatic ductal dilatation is seen. Gallbladder: The gallbladder is contracted, accentuating the wall thickness. No pericholecystic f luid or gallstones are visualized. The common duct measures 3.1 mm. Pancreas: There is limited evaluation of the pancreatic body and tail. The visualized portions of the pancreas are unremarkable. Kidneys: The right kidney measures 5.6 cm. There is normal corticomedullary differentiation. There is no evidence of renal calculus or hydronephrosis. IVC: The visualized portion of the inferior vena cava is unremarkable. Aorta: Normal in size. Free fluid: None. IMPRESSION: Small and atrophic kidneys. Otherwise unremarkable right upper quadrant ultrasound. RPTAT: HIKT .Mathew Perez MD, Date Time Electronically viewed and signed by .Mathew Perez MD, on 11/06/2016 00:22 .T/
[2016-11-06] MEDS ORDERED: CARB15DR BOTH EYES ×2 (00:31→03:08)
[2016-11-06] MEDS ORDERED: SEVE800T10 PO (00:31)
[2016-11-06] MEDS ORDERED: CARSR60 PO (00:31)
[2016-11-06] MEDS ORDERED: APIX5TAB PO (00:32)
[2016-11-06] MEDS ORDERED: FOLI1CAP PO (00:35)
--- NOTE | 2016-11-06 04:24 | HP ---
Date/Time of Note Date/Time of Note DATE: 11/06/16 TIME: 04:17 Assessment/Plan Assessment/Plan Chief Complaint/Hosp Course This is a 26 year old female who will be admitted to the med surg floor for: #1 abdominal pain: gastroenteritis vs. other GI etiology. Remains afebrile. Normal WBC count. No diarrhea. Abdominal pain has since resolved. She is feeling hungry. Will start clear liquid diet and advance as tolerated. If N/V develop again will keep patient npo and proceed for further work up. CAT scan was unequivocal for acute cholecystitis however gallbladder ultrasound was unremarkable. At the current time is likely appears to be a possible viral gastroenteritis. Will continue to monitor the patient. #2 ESRD: Patient is due for HD today. Will consult nephro. Potassium normal. Cr. 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 Patient states she had abdominal pain last night followed by 2 episodes of vomitting. The vomitting consisted of food, non-bloody. She denies any fevers. Denies any flank pain. At the current time patient states that she is doing well and does not feel the pain and she is hungry. Allergies: Tape, acetaminophen, ciprofloxacin, heparin, Levaquin, potassium Medications: See MARISELA HOYT Const: Negative for fever, chills, weight gain or weight loss, fatigue, or diaphoresis Eyes : History of blindness ENT: No pain, sore throat, congestion, congestion, dysphagia or discharge Respiratory: No shortness of breath, cough, sputum, wheezing, or pleuritic pain Cardiovascular: No chest pain, palpitation, PND, or edema GI : As per HPI Genitourinary: No dysuria, hematuria, flank pain , discharge or CVA tenderness Musculoskeletal: No joint pain, back pain, neck pain, restricted range of motion in neck or joints Skin: No rash, bruising or hives Neuro: No headache, dizziness, syncope, seizure, focal weakness Endocrine: No polyuria, polydipsia, temperature intolerance Psych: No hallucination, depression, anxiety or suicidal ideation PMH/Family/Social Past Medical History End-stage renal disease, hemodialysis dependent; 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 Past Surgical History Status post AV fistula recreation the right upper extremity, status post permanent pacemaker insertion 3 years ago and is status post battery change and pacemaker 1 year ago. Family History Significant Family History: heart disease, cancer (pancreatic [place]: dad) Social History Alcohol Use: none Smoking Status: Never smoker Drug Use: none Exam/Review of Systems Vital Signs Vitals Vital Signs Date Time Temp Pulse Resp B/P Pulse Ox O2 Delivery O2 Flow Rate FiO2 11/06/16 04:06 97.9 60 20 129/76 100 11/06/16 02:27 Room Air Exam Exam General: Patient is well-developed well-nourished The patient is alert oriented -3 lying comfortably in bed. HEENT: Patient unable to focus on objects including myself secondary to patient' s history of blindness Neck: Supple with full range of motion. No rigidity or meningismus Chest: Nontender Lungs: Clear to auscultation bilaterally no crackles rales or wheezing Heart: Normal S1-S2, Regular rhythm and rate. No murmur, S3, or S4 Abdomen: Soft, nontender nondistended, normal bowel sounds, no costovertebral angle tenderness. Extremities: Normal to inspection, no edema no cyanosis Neurologic: Normal mental status, speech normal, cranial nerves II through XII are intact, motor and sensory are intact, no focal weakness Additional Comments PROCEDURE: CT ABDOMEN AND PELVIS WITHOUT CONTRAST: CLINICAL INDICATION: 26 years of age, female , abdominal pain. History of end-stage renal disease on dialysis with pacemaker.. COMPARISON: None available. TECHNIQUE: CT of the abdomen and pelvis was performed without intravenous contrast. Oral contrast was not administered prior to the examination. Coronal and sagittal reformatted images were obtained from the axial source images. Images were reviewed on a high-resolution PACS workstation. Dose information: Based on a 32 cm phantom, the estimated radiation dose (CTDI vol mGy) for each series in this exam is 7.5. The estimated cumulative dose ( DLP mGy-cm) is 343. One or more of the following dose reduction techniques were used: - Automated exposure control. - Adjustment of the mA and/or kV according to patient size. - Use of iterative reconstruction technique. FINDINGS: In the absence of intravenous contrast, the study constitutes a limited assessment of the solid organs, bowel and vessels. LUNG BASES: There is a pacemaker with an electrode in the right atrium and 2 electrodes in the right ventricle. There is cardiomegaly. Mild ground-glass opacity of bilateral lung bases may represent atelectasis. ABDOMEN/PELVIS: Liver: Normal noncontrast appearance. Gallbladder: Gallbladder is contracted with moderate edema in the surrounding fat. There may be a gallbladder wall thickening. Bile ducts: No intrahepatic or extrahepatic biliary duct dilatation. Spleen: Normal noncontrast appearance. Pancreas: Mild atrophy with fatty replacement. Adrenal glands: Normal noncontrast appearance. Kidneys and ureters: Small bilateral kidneys in keeping with known end-stage renal disease. Aorta and IVC: Normal noncontrast appearance. Negative for significant atherosclerosis. Lymph nodes: Normal noncontrast appearance. Gastrointestinal tract: Normal noncontrast appearance. Appendix: Normal Bladder: Bladder is contracted. Pelvic Organs: The uterus and adnexa are unremarkable. Peritoneal cavity: No free fluid or free intraperitoneal air. Abdominal wall: Normal noncontrast appearance. BONES: Musculoskeletal: In the lateral right pars interarticularis defect at L5 within nonfusion of the posterior ring of L5 that is developmental. Bones are osteopenic. No suspicious bone lesions. IMPRESSION: Partially contracted gallbladder with edema in the surrounding fat. Evaluation is limited with noncontrast CT. Recommend further evaluation with right upper quadrant ultrasound to better evaluate for calculi and acute cholecystitis. Bilateral small kidneys in keeping with known end-stage renal disease. RPTAT: HCTS Physician Elaina Date Time Electronically viewed and signed by Physician Elaina on 11/05/2016 23: 14 CS/ CC: KENROY JACKSON PROCEDURE: Ultrasound of the abdomen. CLINICAL INDICATION: Right upper quadrant pain. TECHNIQUE: Sonographic images of the abdomen were performed. COMPARISON: No pertinent prior examinations were submitted for comparison. FINDINGS: Liver: The liver is normal in echogencity and size measuring approximately 13.3 cm. The hepatic veins and portal veins are patent with appropriate directional flow. No intrahepatic ductal dilatation is seen. Gallbladder: The gallbladder is contracted, accentuating the wall thickness. No pericholecystic fluid or gallstones are visualized. The common duct measures 3.1 mm. Pancreas: There is limited evaluation of the pancreatic body and tail. The visualized portions of the pancreas are unremarkable. Kidneys: The right kidney measures 5.6 cm. There is normal corticomedullary differentiation. There is no evidence of renal calculus or hydronephrosis. IVC: The visualized portion of the inferior vena cava is unremarkable. Aorta: Normal in size. Free fluid: None. IMPRESSION: Small and atrophic kidneys. Otherwise unremarkable right upper quadrant ultrasound. RPTAT: HIKT .Mathew Perez MD, Date Time Electronically viewed and signed by .Mathew Perez MD, on 11/06/2016 00:22 .T/ CC: KENROY JACKSON Labs Result Diagram: 11/05/[id number]/[id number] BRITT RICHARDSON Nov 06, 2016 04:24
[2016-11-06] MEDS ORDERED: ONDANSETRON 4 MG INJ IV PRN (04:30)
[2016-11-06] MEDS ORDERED: SEVELAMER 800 MG TAB PO PRN (04:30)
[2016-11-06] MEDS ORDERED: ACETAMINOPHEN 325 MG TAB PO PRN (04:30)
[2016-11-06] MEDS ORDERED: NACL 0.9% 3 ML SYG IV SCH (04:30)
[2016-11-06] MEDS ORDERED: morphine 2 MG INJ IV PRN (04:30)
[2016-11-06] MEDS: CARBOXYMETHYLCELLULOSE 0.5% 0.1 ML OPH BOTH EYES SCH ×2 (08:46→15:30)
[2016-11-06] MEDS ORDERED: FAMOTIDINE 20 MG INJ IV SCH (09:00)
[2016-11-06] MEDS ORDERED: APIXABAN 5 MG TABLET PO SCH (09:00)
[2016-11-06] MEDS ORDERED: VITAMIN B COMPLEX/VIT C CAP PO SCH (09:00)
[2016-11-06] MEDS ORDERED: DILTIAZEM (SR) 60 MG CAP PO SCH (09:00)
[2016-11-06] MEDS ORDERED: FOLIC ACID 1 MG TAB PO SCH (09:00)
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
[2016-11-06] MEDS ORDERED: FAMO-96 PO (10:37)
[2016-11-06] MEDS ORDERED: ONDA4TAB8 PO (10:37)
--- NOTE | 2016-11-06 15:48 | DS ---
Date/Time of Note Date/Time of Note DATE: 11/06/16 TIME: 15:41 Discharge Summary Admission/Discharge Info Admit Date/Time Nov 06, 2016 at 05:00 Discharge Date/Time Discharge Diagnosis Abdominal pain/N/vomiting likley 2/2 to Viral gastroenteritis. Resolved ESRD. 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 Patient's mom also having same issue at home. She did not have any fever or chills. Imaging studies were unremarkable for any acute abdominal inflammatory conditions. Upon arrival , her labs was consistent with ESRD. Patient was due for dialysis today. She was admitted. A nephrology consultation was called. Patient was initially kept n.p.o. Patient was given GI cocktail with improvement in symptoms. She did not have any fever or leukocytosis. Patient symptoms completely resolved. She was then started on a diet and was able to tolerate it. Patient was evaluated by nephrology and dialysis was also scheduled today. At this time, patient feels back to baseline and wanted to be discharged. Her vital signs, labs remained stable. There is no further inpatient workup indicated. Patient is medically stable for discharge. Disposition: Patient will be discharged home today. She was instructed to follow-up with her primary care physician in 1 week. Patient was given prescription for Pepcid and Zofran upon discharge. Patient verbalized discharge instructions. Approximately 60 minutes was spent on coordinating the discharge on this patient. Case discussed with . Home Meds Active Scripts Ondansetron Hcl* (Zofran*) 4 Mg Tablet, 4 MG PO Q6H Y for NAUSEA AND OR VOMITING , #30 TAB Prov:HARDIN,COTY V. LONG WALL MINING MACHINE HELPER 11/06/16 Famotidine* (Pepcid*) 20 Mg Tablet, 20 MG PO BID, #15 TAB Prov:HARDIN,COTY V. LONG WALL MINING MACHINE HELPER 11/06/16 Reported Medications Folic Acid/Vitamin B Comp W-C (Nephrocaps Capsule) 1 Mg Capsule, 1 TAB PO DAILY , CAP 11/06/16 Apixaban* (Eliquis*) 5 Mg Tablet, 2.5 MG PO BID, TAB 11/06/16 Carboxymethylcellulose Sodium* (Refresh Tears*) 15 Ml Drops, 1 DROP BOTH EYES TID, #1 EA 11/06/16 Sevelamer Hcl* (Renagel*) 800 Mg Tablet, 800 MG PO WITH MEALS Y for PRN, TAB 11/06/16 Diltiazem Hcl* (Cardizem SR*) 60 Mg Capsr, 60 MG PO Q12, #60 CAP 11/06/16 Folic Acid* (Folic Acid*) 1 Mg Tablet, 1 MG PO DAILY, TAB 09/17/13 Discontinued Reported Medications Multivit/Ca Carb/B Cmplx/Fa* (Lalita-Abigail*) 1 Tab Tab, 1 TAB PO DAILY, TAB 02/27/14 Discontinued Scripts Oseltamivir Phosphate* (Tamiflu*) 30 Mg Capsule, 30 MG PO AFTER DIALYSIS for 2 Days, CAP Prov:BRENNA JENSEN 03/21/16 Metoprolol Tartrate* (Lopressor*) 25 Mg Tab, 25 MG PO BID for 30 Days, TAB Prov:BRENNA JENSEN 03/21/16 Lactobacillus Rhamnosus* (Culturelle*) 1 Each Cap.sprink, 1 CAP PO BID for 30 Days, CAP Prov:BRENNA JENSEN 03/21/16 Aspirin (Aspirin) 81 Mg Chew, 81 MG PO DAILY for 30 Days, TAB Prov:BRENNA JENSEN 03/21/16 Follow-up Plan HOME CARE INSTRUCTIONS: Your diet recommendation is: Renal diet FOLLOW UP/APPOINTMENTS Follow-up Plan 1.Follow up with outpatient green building materials designer/ primary care physician in 1 week If you don't have one please let someone know, we can give you resources that may help you pick one. You may also call your insurance company to assign one to you. Review your medication list with your nurse before leaving and if you need new prescriptions please let your nurse know. I may have made changes to your home medications or given you new prescriptions, please let your primary doctor know as well. Stay compliant with your medications and report any side effects to your PCP or pharmacist. Return to the ER if you have any concerns and cannot reach your doctors or call your insurance company, they usually have a nurse that can help you. 2. Call 911 or go to the nearest emergency room if experiencing loss of consciousness, dizziness, chest pain, shortness of breath, vomiting/abdominal pain, speech difficulties, motor weakness or any unusual symptoms. OTHER ORDERS: Other Orders: Follow-up with outpatient dialysis clinic for next dialysis session. Primary Care Provider Bassam Noland Pending Labs Laboratory Tests Test 11/05/16 22:00 11/05/16 22:29 White Blood Count 10.810^3/ul (4.8-10.8) Red Blood Count 3.3010^6/ul (4.20-5.40) Hemoglobin 11.3g/dl (12.0-16.0) Hematocrit 34.1% (37.0-47.0) Mean Corpuscular Volume 103.3fl (82.0-101.0) Mean Corpuscular Hemoglobin 34.2pg (29.0-33.0) Mean Corpuscular Hemoglobin Concent 33.1g/dl (32.0-37.0) Red Cell Distribution Width 12.7% (11.5-14.5) Platelet Count 75215^3/UL (140-415) Mean Platelet Volume 9.8fl (7.4-10.4) Neutrophils % 73.2% (39.0-77.0) Lymphocytes % 14.5% (15.0-51.0) Monocytes % 4.9% (0.0-11.0) Eosinophils % 6.5% (0.0-7.0) Basophils % 0.5% (0.0-2.0) Nucleated Red Blood Cells % 0.0/100WBC (0.0-0.0) Neutrophils # (Manual) 7.910^3/ul (1.7-7.5) Lymphocytes # 1.610^3/ul (0.8-2.9) Monocytes # 0.510^3/ul (0.3-0.9) Eosinophils # 0.710^3/ul (0.0-0.5) Basophils # 0.110^3/ul (0.0-0.1) Nucleated Red Blood Cells # 0.010^3/ul (0.0-0.0) Sodium Level 142mmol/L (135-144) Potassium Level 4.0mmol/L (3.5-5.1) Chloride Level 95mmol/L (97-110) Carbon Dioxide Level 24mmol/L (21-31) Anion Gap 27 (8-16) Blood Urea Nitrogen 82mg/dl (7-20) Creatinine 9.11mg/dl (0.44-1.00) Glucose Level 88mg/dl (70-220) Calcium Level 7.5mg/dl (8.4-10.2) Total Bilirubin 0.1mg/dl (0.2-1.3) Direct Bilirubin 0.00mg/dl (0.00-0.20) Indirect Bilirubin 0.1mg/dl (0-1.1) Aspartate Amino Transf (AST/SGOT) 43IU/L (15-46) Alanine Aminotransferase (ALT/SGPT) 40IU/L (13-69) Alkaline Phosphatase 247IU/L (42-121) Total Protein 8.9g/dl (6.1-8.1) Albumin 4.7g/dl (3.3-4.9) Globulin 4.20g/dl (1.3-3.2) Albumin/Globulin Ratio 1.11 Lipase 245U/L (23-300) Bedside Urine pH (LAB) 7.0 (5.0-8.5) Bedside Urine Protein (LAB) 2+ (NEGATIVE) Bedside Urine Glucose (UA) Negative (NEGATIVE) Bedside Urine Ketones (LAB) Negative (NEGATIVE) Bedside Urine Blood 2+ (NEGATIVE) Bedside Urine Nitrite (LAB) Negative (NEGATIVE) Bedside Urine Leukocyte Esterase (L 1+ (NEGATIVE) COTY HARDIN V. LONG WALL MINING MACHINE HELPER Nov 06, 2016 15:48
--- NOTE | 2016-11-06 17:41 | QN ---
Documentation Comment [id number] Ballesteros MD Nov 06, 2016 17:41
--- NOTE | 2016-11-08 06:08 | CONS ---
DATE OF ADMISSION: 11/06/2016 DATE OF CONSULTATION: 11/06/2016 REASON FOR CONSULTATION: Maria Antonia Willis is a 26-year-old female with a history of end stage renal disease, history of hypertension, history of pacemaker placement. The patient has a history of pneumonia, history of lymphangitic, history of hypertension, history of anemia, history of legal blindness, history of glioblastoma, thrombocytopenia, history of pulmonary edema, history of transaminitis, history of sepsis, presented with abdominal pain and diarrhea, which is resolving. ALLERGIES: CIPRO, HEPARIN, LEVOFLOXACIN, POTASSIUM. SOCIAL HISTORY: Negative. FAMILY HISTORY: Noncontributory. PAST MEDICAL HISTORY: ESRD, hypertension, history of _blindness history of retinitis pigmentosa, anemia, history of AV fistula placement, thrombocytopenia. REVIEW OF SYSTEMS: HEENT: Unremarkable. RESPIRATORY: Unremarkable. CARDIOVASCULAR: Unremarkable. GASTROINTESTINAL: Abdomen as mentioned. NEUROLOGIC: RUBY ENGINEER unremarkable. PHYSICAL EXAMINATION: GENERAL: The patient is awake and alert with pulse 90 and blood pressure 130/85. HEENT: Head is atraumatic and normocephalic. Pupils equal and reactive. NECK: Supple. No JVD. LUNGS: Clear. HEART: S1 and S2 are normal. Systolic murmur noted. ABDOMEN: Soft, nontender. Bowel sounds present + EXTREMITIES: No clubbing, cyanosis or edema. NEUROLOGIC: The patient is awake, alert, with no focal deficits. LABORATORY DATA: Hematocrit 34.1. Sodium 140, potassium 4. BUN Alkaline phos 247, total protein 8.9, albumin 4.7. Gallbladder ultrasound, small and atrophic kidney. The patient has partially constricted gallbladder with edema and the surrounding fat. IMPRESSION: 1. The patient has abdominal pain. 2. Possible viral syndrome. 3. End stage renal disease. 4. Hypertension. 5. Anemia. 6. pacemaker placement PLAN: To continue renal diet and hemodialysis. Other recommendations per primary team Thank you, Dr. Hong, for asking me to see this patient in nephrology consultation. Dictated By: Ovidio Lake MD /flex/wesley /Document#: [id number] MTDD
== END 2016-11-06 16:00 | disposition home or self-care (01) ==
LOC: E/R 21:19 → MS2 11-06 01:53 → INTOOBSV 11-06 01:53 → OBSVTOIN 11-06 05:00 → INTOOBSV 11-06 05:00 → UNDODISIN 11-06 16:00
PROVIDERS: ADMIT Family Medicine; ATTEND Family Medicine
DX: R10.9 Unspecified abdominal pain (principal); R11.2 Nausea with vomiting, unspecified; I12.0 Hypertensive chronic kidney disease with stage 5 chronic kidney disease or end stage renal disease; N18.6 End stage renal disease; Z99.2 Dependence on renal dialysis; D63.8 Anemia in other chronic diseases classified elsewhere; H54.8 Legal blindness, as defined in USA; Z95.0 Presence of cardiac pacemaker; Z88.1 Allergy status to other antibiotic agents; Z88.8 Allergy status to other drugs, medicaments and biological substances; Z87.01 Personal history of pneumonia (recurrent)
CPT/HCPCS: 74176; 76705; 80053; 81003; 83690; 85025; 90935; G0378; 99217

== ENCOUNTER 2018-05-22 03:29 | Emergency (ER) | payer MEDICARE, MEDICAID ==
[~2018-05-22] VITALS: Ht 139.7 cm; Wt 30.5 kg
[~2018-05-22 03:29] MED LIST changes: +APIX5TAB PO; -ASPI81TA3 PO; +CARB15DR3 BOTH EYES; +CARSR60 PO; +FAMO-96 PO; +FOLI1CAP PO; -LACT1CAP57 PO; -METO-448 PO; -NEPH PO; +ONDA4TAB8 PO; -OSEL30CA PO; +SVL800C PO
[2018-05-22 03:37] VITALS: Ht 139.7 cm; Wt 30.5 kg
--- NOTE | 2018-05-22 05:22 | ERD ---
ER Documentation Chief Complaint Chief Complaint NOSEBLEED SINCE 1AM S/P SCRATCHING INSIDE RT NOSTRIL, NO ACTIVE BLEEDING HPI This is a 27-year-old female who presents to emerge department with complaints of right nasal bleeding. Stated this started around 1 AM. LMP: Denies headache, head injury, loss of consciousness, dizziness, neck pain, neck stiffness, throat pain, difficulty swallowing, difficulty breathing lying flat, shoulder pain, chest pain, back pain, abdominal pain, nausea, vomiting, constipation, diarrhea, urinary symptoms, or possibility being , loss of bowel and bladder control, trauma, injury, falls, difficulty walking due to pain, numbness or tingling sensation, calf pain, recent travel, recent major surgery in the last 3 weeks, calf pain, recent long travel, recent exposure to any illness, recent antibiotic use in the last 3 months, fever, chills, seizures. Past medical history: Dialysis patient. Surgical history: Social: Denies smoking, use of alcoholic beverages, use of illegal drugs. ROS All systems reviewed and are negative except as per history of present illness. Medications Home Meds Active Scripts Ondansetron Hcl* (Zofran*) 4 Mg Tablet, 4 MG PO Q6H PRN for NAUSEA AND OR VOMITING, #30 TAB Prov:COTY HARDIN V. ACUTE SPECIALIST 11/06/16 Famotidine* (Pepcid*) 20 Mg Tablet, 20 MG PO BID, #15 TAB Prov:COTY HARDIN V. ACUTE SPECIALIST 11/06/16 Reported Medications Folic Acid/Vitamin B Comp W-C (Nephrocaps Capsule) 1 Mg Capsule, 1 TAB PO DAILY, CAP 11/06/16 Apixaban* (Eliquis*) 5 Mg Tablet, 2.5 MG PO BID, TAB 11/06/16 Carboxymethylcellulose Sodium* (Refresh Tears*) 15 Ml Drops, 1 DROP BOTH EYES TID, #1 EA 11/06/16 Sevelamer Hcl* (Renagel*) 800 Mg Tablet, 800 MG PO WITH MEALS PRN for PRN, TAB 11/06/16 Diltiazem Hcl* (Cardizem SR*) 60 Mg Capsr, 60 MG PO Q12, #60 CAP 11/06/16 Folic Acid* (Folic Acid*) 1 Mg Tablet, 1 MG PO DAILY, TAB 09/17/13 Allergies Allergies: Coded Allergies: ciprofloxacin (Unverified Allergy, Severe, 11/06/16) heparin (Unverified Allergy, Severe, 11/06/16) levofloxacin (Unverified Allergy, Severe, 11/06/16) acetaminophen (Unverified Allergy, Mild, 11/06/16) potassium (Unverified Allergy, Unknown, 11/06/16) Uncoded Allergies: TAPE (Allergy, Mild, 11/06/16) PMhx/Soc History of Surgery: Yes (AVF PLACEMENT 2014, GRAFT 2014, PACEMAKER 2006 ) Anesthesia Reaction: No Hx Neurological Disorder: Yes (BALANCE ISSUES, USES WALKER) Hx Respiratory Disorders: Yes (H/O PNA AND FLU) Hx Cardiac Disorders: Yes (PACEMAKER 2007, HTN) Hx Psychiatric Problems: No Hx Miscellaneous Medical Probl: No Hx Alcohol Use: No Hx Substance Use: No Hx Tobacco Use: No Physical Exam Vitals Physical Exam Const: No acute distress Head: Atraumatic Eyes: Normal Conjunctiva ENT: Normal External Ears, Nose and Mouth. Nose: Midline without deformity. No septal hematoma. Minimal bleeding. Throat: Uvula is in midline and nondisplaced. Tonsils are +1 without redness and without exudates. Tolerating secretions. Patent airway. No bleeding. Speaks full and clear sentences. No signs of posterior bleeding. Neck: Full range of motion. No meningismus. Resp: Clear to auscultation bilaterally Cardio: Regular rate and rhythm, no murmurs Abd: Soft, non tender, non distended. Normal bowel sounds Skin: No petechiae or rashes Back: No midline or flank tenderness Ext: No cyanosis, or edema Neur: Awake and alert Psych: Normal Mood and Affect Procedures/MDM Diagnostic tests: Clinical exam. Treatment: Silver nitrate applied to bilateral nasal area. Re-evaluation: No active bleeding. No septal hematoma. No signs of posterior nosebleed/epistaxis. No signs of hemorrhage. Differential diagnosis I have low suspicion for hemorrhage, septal hematoma. Final diagnosis: Epistaxis that has resolved. Prescription: Not applicable. Follow-up with PCP in the next 24-48 hours. Follow-up with ENT in the next 24- 48 hours. Come back here in the emergency department for any new symptoms or any worsening symptoms. All questions and concerns were answered. Patient and family members verbalized understanding and agreed with plan of care. Hemodynamically stable on discharge. Departure Diagnosis: Primary Impression: Epistaxis Condition: Stable Additional Instructions: Follow-up with PCP in the next 24-48 hours. Follow-up with ENT in the next 24- 48 hours. Come back here in the emergency department for any new symptoms or any worsening symptoms. KERVIN SUMMERS May 22, 2018 05:22
[2018-05-22 05:53] VITALS: BP 115/66; PULSE 60; RESP 16
== END 2018-05-22 05:53 | disposition home or self-care (01) ==
LOC: FTE 03:29
DX: R04.0 Epistaxis (principal); I10 Essential (primary) hypertension; Z95.0 Presence of cardiac pacemaker
CPT/HCPCS: 99282

== ENCOUNTER 2018-07-22 08:00 | Inpatient (IN) | payer MEDICARE, MEDICAID ==
[~2018-07-22] VITALS: Ht 149.9 cm; Wt 39.3 kg
[2018-07-22] VITALS (42 sets, daily range): BP systolic 79–147; BP diastolic 62–96; PULSE 58–94; RESP 14–22
[2018-07-22] MEDS ORDERED: GLUCOSE GEL 15 GRAM TUBE ONE (08:02)
[2018-07-22] MEDS ORDERED: SOD CHLORIDE 0.9% 250 ML IV STA (08:03)
[2018-07-22] MEDS ORDERED: DEXTROSE 50% 50 ML SYRINGE IV STA (08:03)
--- NOTE | 2018-07-22 08:08 | ERD ---
ER Documentation Chief Complaint Chief Complaint HPI 27-year-old woman with history of end-stage kidney disease hemodialysis giacomo barrientos was brought in by EMS from home for confusion and altered mental status. She was due for hemodialysis today although her coroner transport technician refused to take her because of the change in her condition. She has had no vomiting or diarrhea, no complaints of chest pain or shortness of breath. Family members stated she was recently diagnosed with bacteremia and admitted at [facility], and discharged about 3 days ago. HPI was limited although supplemented by reviewing past medical history and speaking to EMS and family members who were later at the bedside. ROS All systems reviewed and are negative except as per history of present illness. Medications Home Meds Reported Medications Sevelamer Hcl* (Renagel*) 800 Mg Tablet, 800 MG PO WITH MEALS, TAB 07/22/18 Folic Acid/Vitamin B Comp W-C (Nephrocaps Capsule) 1 Mg Capsule, 1 MG PO DAILY, CAP 07/22/18 Folic Acid* (Folic Acid*) 1 Mg Tablet, 1 MG PO DAILY, TAB 07/22/18 Diltiazem Hcl* (Cardizem SR*) 60 Mg Capsr, 60 MG PO Q12, #60 CAP 07/22/18 Apixaban* (Eliquis*) 5 Mg Tablet, 5 MG PO BID, TAB 07/22/18 Discontinued Reported Medications Folic Acid/Vitamin B Comp W-C (Nephrocaps Capsule) 1 Mg Capsule, 1 TAB PO DAILY, CAP 11/06/16 Apixaban* (Eliquis*) 5 Mg Tablet, 2.5 MG PO BID, TAB 11/06/16 Carboxymethylcellulose Sodium* (Refresh Tears*) 15 Ml Drops, 1 DROP BOTH EYES TID, #1 EA 11/06/16 Sevelamer Hcl* (Renagel*) 800 Mg Tablet, 800 MG PO WITH MEALS PRN for PRN, TAB 11/06/16 Diltiazem Hcl* (Cardizem SR*) 60 Mg Capsr, 60 MG PO Q12, #60 CAP 11/06/16 Folic Acid* (Folic Acid*) 1 Mg Tablet, 1 MG PO DAILY, TAB 09/17/13 Discontinued Scripts Ondansetron Hcl* (Zofran*) 4 Mg Tablet, 4 MG PO Q6H PRN for NAUSEA AND OR VOMITING, #30 TAB Prov:HARDIN,COTY V. LOGISTICS COORDINATOR 11/06/16 Famotidine* (Pepcid*) 20 Mg Tablet, 20 MG PO BID, #15 TAB Prov:HARDIN,COTY V. LOGISTICS COORDINATOR 11/06/16 Allergies Allergies: Coded Allergies: ciprofloxacin (Unverified Allergy, Severe, 07/22/18) heparin (Unverified Allergy, Severe, 07/22/18) levofloxacin (Unverified Allergy, Severe, 07/22/18) acetaminophen (Unverified Allergy, Mild, 07/22/18) potassium (Unverified Allergy, Unknown, 07/22/18) Uncoded Allergies: TAPE (Allergy, Mild, 11/06/16) PMhx/Soc History of pulmonary edema and heart failure with EF of 45%, end-stage kidney disease hemodialysis dependent, history of heart block with pacemaker, hypertension, anemia of chronic disease, blind, thrombocytopenia History of Surgery: Yes (AVF PLACEMENT 2014, GRAFT 2014, PACEMAKER 2006 ) Anesthesia Reaction: No Hx Neurological Disorder: Yes (BALANCE ISSUES, USES WALKER) Hx Respiratory Disorders: Yes (H/O PNA AND FLU) Hx Cardiac Disorders: Yes (PACEMAKER 2007, HTN) Hx Psychiatric Problems: No Hx Miscellaneous Medical Probl: No Hx Alcohol Use: No Hx Substance Use: No Hx Tobacco Use: No FmHx Family History: No diabetes Physical Exam Vitals Vital Signs Date Temp Pulse Resp B/P (MAP) Pulse Ox O2 O2 Flow FiO2 Time Delivery Rate 07/22/18 96.7 74 20 101/74 100 08:21 (83) 07/22/18 96.7 74 12 110/84 97 Nasal 2.0 08:01 (93) Cannula Per nurse's records Physical Exam Const: Young woman, poorly developed, emaciated with bryson facies, afebrile HEENT: Uremic sims, pink conjunctive a, dry mucous membranes Resp: Clear to auscultation bilaterally Cardio: Regular rate and rhythm, no murmurs Abd: Soft, non tender, non distended. Skin: No petechiae or rashes, chronic skin changes of xeroderma, no ulcers or hematomas noted Ext: No cyanosis, or edema Neur: Pupils equal round reactive to light, no focal deficits or facial asymmetry, moving her extremities, appears confused, able to answer simple questions and follow simple commands Psych: Not performed Result Diagram: 07/22/18 0819 07/22/18 0819 Results 24 hrs Laboratory Tests Test 07/22/18 08:19 07/22/18 08:24 07/22/18 09:21 07/22/18 10:09 White Blood Count 12.5 10^3/ul Red Blood Count 2.50 10^6/ul Hemoglobin 9.3 g/dl Hematocrit 30.0 % Mean Corpuscular 120.0 fl Volume Mean Corpuscular 37.2 pg Hemoglobin Mean Corpuscular 31.0 g/dl Hemoglobin Concent Red Cell 26.1 % Distribution Width Platelet Count 72 10^3/UL Mean Platelet 12.7 fl Volume Immature 0.700 % Granulocytes % Neutrophils % % Segmented 72 % Neutrophils % (Manual) Band Neutrophils % 5 % (Manual) Lymphocytes % % Lymphocytes % 16 % (Manual) Reactive 2 % Lymphocytes % (Manual) Monocytes % % Monocytes % 5 % (Manual) Eosinophils % % Basophils % % Nucleated Red Blood 1 % Cells % Immature 0.090 10^3/ul Granulocytes # Neutrophils # 10^3/ul Neutrophils # 9.1 10^3/ul (Manual) Band Neutrophils # 0.6 10^3/ul Lymphocytes 2.0 10^3/ul (Manual) Lymphocytes # 10^3/ul Reactive 0.2 10^3/ul Lymphocytes # Monocytes # 10^3/ul Monocytes # 0.6 10^3/ul (Manual) Eosinophils # 10^3/ul Basophils # 10^3/ul Nucleated Red Blood 10^3/ul Cells # Platelet Estimate DECREASED Giant Platelets 1 % Dimorphic Red Blood 1+ Cells Polychromasia 1+ Poikilocytosis 1+ Anisocytosis 1+ Macrocytosis 2+ Tear Drop Cells 1+ Ovalocytes 1+ Elliptocytes 1+ Sodium Level 146 mmol/L Potassium Level 3.1 mmol/L Chloride Level 96 mmol/L Carbon Dioxide 18 mmol/L Level Anion Gap 32 Blood Urea Nitrogen 69 mg/dl Creatinine 7.90 mg/dl Est Glomerular 6 mL/min Filtrat Rate mL/min Glucose Level 25 mg/dl Calcium Level 7.0 mg/dl Total Bilirubin 8.0 mg/dl Direct Bilirubin 5.70 mg/dl Indirect Bilirubin 2.3 mg/dl Aspartate Amino 68 IU/L Transf (AST/SGOT) Alanine 37 IU/L Aminotransferase (A LT/SGPT) Alkaline 174 IU/L Phosphatase Troponin I 0.140 ng/ml 0.128 ng/ml Total Protein 8.7 g/dl Albumin 4.4 g/dl Globulin 4.30 g/dl Albumin/Globulin 1.02 Ratio Lipase 734 U/L Bedside Glucose 196 mg/dL POC Venous Lactate 9.1 mmol/L Lactic Acid Level 12.1 mmol/L Creatine Kinase 309 IU/L Creatine Kinase 3.2 Index Creatinine Kinase 10.00 ng/ml MB (Mass) Test 07/22/18 11:05 Bedside Glucose 235 mg/dL Current Medications Medications Dose Sig/Eleonora Start Time Status Last (Trade) Ordered Route PRN Stop Time Admin Dose Reason Admin Dextrose 50 ml ONCE STAT 07/22/18 DC 07/22/18 (D50w IV 08:03 08:25 Syringe) 07/22/18 08:05 Sodium 250 ml @ Q1H STAT 07/22/18 DC 07/22/18 Chloride 250 mls/hr IV 08:03 08:25 07/22/18 09:02 Magnesium 50 ml @ 25 ONCE ONCE 07/22/18 DC 07/22/18 Sulfate mls/hr IVPB 08:30 08:32 07/22/18 10:29 Ondansetron 4 mg ONCE STAT 07/22/18 DC 07/22/18 HCl (Zofran IV 08:22 08:31 Inj) 07/22/18 08:23 Ceftriaxone 50 ml @ ONCE ONCE 07/22/18 DC 07/22/18 Sodium 100 mls/hr IVPB 09:30 10:33 07/22/18 09:59 Azithromycin 250 ml @ ONCE ONCE 07/22/18 DC 07/22/18 250 mls/hr IVPB 09:30 09:36 07/22/18 10:29 Calcium 110 ml @ ONCE ONCE 07/22/18 DC Gluconate 1 110 mls/hr IVPB 10:30 gm/Dextrose 07/22/18 11:29 1,000 ml @ Q20H IV 07/22/18 Dextrose/Sodi 50 mls/hr 10:01 um Chloride Lorazepam 0.5 mg Q6H PRN 07/22/18 (Ativan) IV .ANXIETY 10:30 Ondansetron 4 mg Q6H PRN 07/22/18 HCl (Zofran IV 10:30 Inj) NAUSEA/VOMITI NG Aspirin 81 mg DAILY PO 07/23/18 (Aspirin) 09:00 Docusate 100 mg Q12H PO 07/22/18 Sodium 10:30 (Colace) Famotidine 20 mg Q12 IV 07/22/18 (Pepcid Iv) 10:30 07/22/18 21:01 40 mg DAILY@06 07/23/18 Pantoprazole PO 06:00 (Protonix Tab) Cefepime HCl 50 ml @ Q24H IVPB 07/22/18 100 mls/hr 11:00 Vancomycin VANCOMYCIN PER 07/22/18 HCl (Vanco PER PHARMACY PROTOCOL XX 10:30 Iv Per Pharmacy) Diltiazem 60 mg Q12 PO 07/22/18 HCl 21:00 (Cardizem Sr) Sevelamer 800 mg WITH MEALS 07/22/18 HCl PO 12:00 (Renagel) Multivit/Ca 1 tab DAILY PO 07/23/18 Carb/ B 09:00 Cmplx/FA/Pren at (Lalita-Abigail) 250 ml @ ud STK-MED 07/22/18 DC Norepinephrin ONCE .ROUTE 10:48 e 07/22/18 10:49 Vancomycin 100 ml @ ONCE ONCE 07/22/18 DC HCl 100 mls/hr IVPB 11:00 07/22/18 11:59 Dopamine 250 ml @ TITRATE IV 07/22/18 07/22/18 HCl/ 2.205 mls/ 11:30 11:31 Dextrose hr 250 ml @ TITRATE IV 07/22/18 Phenylephrine 75 mls/hr 12:00 HCl Procedures/MDM IV line established patient placed on potline monitor rhythm strip revealed a paced rhythm at about 70 bpm. Patient was hypothermic. Blood sugar was low and she was given both oral and intravenous dextrose with improvement in mental status. EKG performed, read by me revealed a paced ventricular rhythm at 74 bpm, left axis deviation, wide complex, no concerning ST elevations or depressions noted, prolonged QT at 610 ms Patient had a similar presentation with altered mental status last week and a CT scan of the head was negative, family did not want a second CT scan. 1 view chest x-ray performed, read by me revealed congestion bilaterally pacemaker in the left chest, and a left lower infiltrate I administered Zofran 4 mg IV for nausea and magnesium 2 g IV I administered ceftriaxone 1 g IV and azithromycin 500 mg IV. CBC reveals mild anemia, electrolytes revealed end-stage kidney disease with creatinine at 7.9, potassium low at 3.1, calcium low at 7, liver function tests abnormal, troponin elevated at 0.14, lipase elevated 734 I ordered calcium gluconate 1 g IV Patient's mental status was normal normal and at baseline per nurse noted sudden collapse, unresponsiveness, apnea, and loss of pulses. CODE EDNA was called in the ER. Immediate high-quality chest compressions were started and patient was given 2 doses of intravenous epinephrine, (the calcium I ordered was given during the resuscitation). Endotracheal Intubation by me: Pre assessment performed. See preceding note for details. Pre-oxygenation performed with 100% oxygen RSI: Performed w/o complication or hypoxic events. Medications as ordered. Blade: 4.0 ET Tube: 7.5 cm Depth: 20 cm at the lip Intubation confirmed by colorimetric CO2, equal breath sounds, quiet over the stomach. After a short round of cardiopulmonary resuscitation, intubation, and 2 doses of intravenous epinephrine patient regained strong pulses and some purposeful movement Central Line Placement by me: After the patient was consented and a time out was performed, appropriate hand hygiene was performed, the skin site was fully prepped and maximal sterile barrier technique was employed where the patient was sterilely draped, and the provider wore a mask and sterile gown and gloves. Anesthesia: 1% lidocaine locally Location: Right subclavian vein Device: Multiple lumen Technique: Seldinger technique. Secured with suture. Results: Venous return from all ports with easy saline flush. No complications. The entire guide wire retrieved and disposed of. Chest X-ray 1V Interpreted by me: Central line in SVC, Normal soft tissue, No evidence of pneumothorax. ET tube about 3 cm above gabriel, bilateral pulmonary vascular congestion and pacemaker in the left chest Patient's infectious symptoms have not stabilized and the patient is at risk of rapid decompensation. The patient will be admitted for careful hydration, antibiotic therapy, and infectious source control. SEVERE SEPSIS CRITERIA: Infectious source: Blood borne End organ damage indicated by: Lactate > 2.0 mmol/L Quiller Machine Fixer > 2.0 SEPSIS MANAGEMENT Time of recognition of sepsis: Upon arrival. Time of recognition of severe sepsis: No severe sepsis at this time. Time of recognition of septic shock: No septic shock at this time. 3 HOUR BUNDLE Blood cultures x 2 before broad-spectrum antibiotics: Yes 30 ml/kg NS bolus no Initial lactate 9.1 Repeat lactate 12 SEPTIC SHOCK ASSESSMENT: Yes lactic acid > 4.0 No persistent hypotension (SBP < 90 or 40 mmHg drop, MAP < 65) despite 30 mL/kg IV fluid bolus VOLUME REASSESSMENT FOR SEPTIC SHOCK: Reevaluation Time: 9:30 AM Temp 97 F, BP 120/80, pulse 70 bpm, respiratory rate 18 breaths/min, oxygen saturation 100% Heart regular rate & rhythm Lungs no crackles Skin: Warm and dry to touch, skin over the sacral back buttocks defer to nursing Cap Refill less than 2 seconds Peripheral pulses radially present PERSISTENT HYPOTENSION TREATMENT: Comfort care no Central line placed (see above note) Vasopressor started including intravenous epinephrine and dopamine I considered further perfusion assessment with CVP measurement, SCVO2, bedside ultrasound volume assessment, passive leg raise, trial of further fluid bolus. And proceeded with 30 ml/kg fluid bolus of NSS, broad spectrum antibiotics, and admission. CRITICAL CARE: Critical care time 55 minutes, this was time separate from other billable procedures. Emergent fluid management while maintaining close respiratory support. Provision of immediate and broad-spectrum antibiotic therapy. Simultaneous assessment for possible sources in order to direct targeted therapy. Consideration for invasive and chemical support to prevent cardiopulmonary collapse. Critical care time is independent of procedures performed. Accepting Care Team: Current data and ongoing care discussed. Time: Time of admission Primary Provider: Hospitalist Consulting: Infectious disease Outstanding Data: none Departure Diagnosis: Primary Impression: Acute metabolic encephalopathy due to hypoglycemia Additional Impressions: End stage kidney disease Pneumonia Pneumonia type: due to unspecified organism Laterality: left Lung location: unspecified part of lung Qualified Codes: J18.9 - Pneumonia, unspecified organism Elevated troponin Hypocalcemia Septic shock Cardiac arrest [place] disease Signs of return of spontaneous circulation Condition: Critical SIMONE PEREA MD July 22, 2018 08:08
[2018-07-22] MEDS ORDERED: ONDANSETRON 4 MG INJ IV STA (08:22)
[2018-07-22] MEDS ORDERED: MAGNESIUM SULFATE 2 GM/50 ML 50 ML IVPB ONE (08:30)
[2018-07-22] MEDS ORDERED: CARSR60 PO (09:22)
[2018-07-22] MEDS ORDERED: APIX5TAB PO (09:22)
[2018-07-22] MEDS ORDERED: FOLI-49 PO (09:23)
[2018-07-22] MEDS ORDERED: FOLI1CAP PO (09:23)
[2018-07-22] MEDS ORDERED: SVL800C PO (09:23)
[2018-07-22] MEDS ORDERED: CEFTRIAXONE 1 GM/50 ML (PMX) 50 ML IVPB ONE (09:30)
[2018-07-22] MEDS ORDERED: AZITHROMYCIN 500MG/NS (PMX) 250 ML IVPB ONE (09:30)
[2018-07-22] MEDS ORDERED: DEXTROSE 5%-0.45% NACL 1,000 ML IV SCH (10:01)
--- NOTE | 2018-07-22 10:22 | HP ---
Date/Time of Note Date/Time of Note DATE: 07/22/18 TIME: 09:55 Assessment/Plan VTE Prophylaxis Pharmacological prophylaxis: NA/contraindicated Pharm contraindication: thrombocytopenia Lines/Catheters IV C[facility]ter Type [facility] Saline Lock Assessment/Plan Hospital Course 27-year-old woman with history of end-stage kidney disease hemodialysis dependent was brought in by EMS from home for confusion and altered mental status. Sepsis -multifactorial, possible PNA / pancreatitis Acute metabolic encephalopathy due to hypoglycemia likely from #1 Fluid overload vs CHF Acute Pancreatitis Elevated trop vs Nstemi Possible LLL pneumonia -recent hospitalization with reports of bacteremia ? ESRD on HD -2/2 lupus nephritis? -failed prior transplant? 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 Debility / Malnuitrition Eliquis therapy Legally blind, retinitis pigmentosa PLan: -admit tele -Nephro consult for HD and fluid removal., replace lytes -empiric abx post cultures -Liver USS to eval pancreatitis and hyperbilirubinemia -obtain d/c summary from recent hospitalization -Trend trops, cardio consult, echo -dietary and PT consult -supportive care Addendum: -Subsequent to my initial evaluation, patient suffered cardiac arrest and had to be resuscitated with return of spontaneous circulation. Patient was intubated and initially did not have any neurologic activity, so we consider the hypothermia protocol, however the patient started following commands and so this was discontinued. She however developed septic shock and at one point required 3 pressors but was eventually weaned down to 1 pressor. The patient is being admitted to the intensive care unit. Unfortunately due to sepsis with shock, patient is unable to get hemodialysis today. ABG is pending, prognosis is extremely guarded. Family has been updated. Of note is also that the manager project management was able to get copies of prior culture results, and it looks like cultures were positive for MSSA. We will get infectious disease consultation. Also will discuss with cardiology, patient has had pacemaker since before 2012. States any indication to remove this. Care time: Greater than 2 hours Result Diagram: 07/22/18 0819 07/22/18 0819 Results 24hrs Laboratory Tests Test 07/22/18 08:19 07/22/18 08:24 07/22/18 09:21 White Blood Count 12.5 H Red Blood Count 2.50 #L Hemoglobin 9.3 L Hematocrit 30.0 L Mean Corpuscular Volume 120.0 H Mean Corpuscular Hemoglobin 37.2 H Mean Corpuscular Hemoglobin Concent 31.0 L Red Cell Distribution Width 26.1 #H Platelet Count 72 #L Mean Platelet Volume 12.7 #H Immature Granulocytes % 0.700 H Neutrophils % Segmented Neutrophils % (Manual) 72 Band Neutrophils % (Manual) 5 H Lymphocytes % Lymphocytes % (Manual) 16 Reactive Lymphocytes % (Manual) 2 H Monocytes % Monocytes % (Manual) 5 Eosinophils % Basophils % Nucleated Red Blood Cells % 1 H Immature Granulocytes # 0.090 H Neutrophils # Neutrophils # (Manual) 9.1 H Band Neutrophils # 0.6 Lymphocytes (Manual) 2.0 Lymphocytes # Reactive Lymphocytes # 0.2 H Monocytes # Monocytes # (Manual) 0.6 Eosinophils # Basophils # Nucleated Red Blood Cells # Platelet Estimate DECREASED Giant Platelets 1 H Dimorphic Red Blood Cells 1+ Polychromasia 1+ Poikilocytosis 1+ Anisocytosis 1+ Macrocytosis 2+ Tear Drop Cells 1+ Ovalocytes 1+ Elliptocytes 1+ Sodium Level 146 H Potassium Level 3.1 L Chloride Level 96 L Carbon Dioxide Level 18 L Anion Gap 32 H Blood Urea Nitrogen 69 H Creatinine 7.90 H Est Glomerular Filtrat Rate mL/min 6 L Glucose Level 25 *L Calcium Level 7.0 L Total Bilirubin 8.0 H Direct Bilirubin 5.70 H Indirect Bilirubin 2.3 H Aspartate Amino Transf (AST/SGOT) 68 H Alanine Aminotransferase (ALT/SGPT) 37 Alkaline Phosphatase 174 H Troponin I 0.140 *H Total Protein 8.7 H Albumin 4.4 Globulin 4.30 H Albumin/Globulin Ratio 1.02 Lipase 734 H Bedside Glucose 196 POC Venous Lactate 9.1 *H HPI/ROS Admit Date/Time Admit Date/Time Hx of Present Illness 27 yo chronically ill female with a PMH of ESRD, ?cause who was BIBA from home via ambulance because of severe lethargy. Apparently she was found by ems to be hypoglycemic and even upon arriving in ER was still hypoglycemic. She was recently discharged from [facility] 3 days ago after a 12 day hospitalization when she was treated for bacteremia vs endocarditis. She was sent on home on abx i ncluding rifampin. Patient improved with glucose administration. Last HD was on saturday as per her Sat schedule. She had only been very lethargic since discharge. She was referred to the emergency room by the dialysis unit and did not receive hemodialysis today.Chest x-ray is showing pulmonary congestion and increased densities in the lung bases for which infiltrates cannot be ruled out. Her CBC is also consistent with leukocytosis and bandemia the patient also has elevated lactic acid levels on chemistry. She is being admitted for possible sepsis with possible pneumonia. There has been no fever, no chest pain, patient also did not report abdominal pain. Family has not noted any bleeding. ROS 12 point review if systems was done and pertinent findings are as noted. PMH/Family/Social Past Medical History 1. End-stage renal disease on hemodialysis Saturday, and Saturday. 2. Hypertension. 3. Retinitis pigmentosa. 4. History of recent bacteremia with endocarditis ? 5. Cardiomyopathy. 6. Pacemaker dependent. Medications Current Medications Magnesium Sulfate 50 ml @ 25 mls/hr ONCE ONCE IVPB Last administered on 07/22/18at 08:32; Admin Dose 25 MLS/HR; Start 07/22/18 at 08:30; Stop 07/22/18 at 10:29 Ceftriaxone Sodium 50 ml @ 100 mls/hr ONCE ONCE IVPB ; Start 07/22/18 at 09:30; Stop 07/22/18 at 09:59 Azithromycin 250 ml @ 250 mls/hr ONCE ONCE IVPB Last administered on 07/22/18at 09:36; Admin Dose 250 MLS/HR; Start 07/22/18 at 09:30; Stop 07/22/18 at 10:29 Calcium Gluconate 1 gm/Dextrose 110 ml @ 110 mls/hr ONCE ONCE IVPB ; Start 07/22/18 at 10:30; Stop 07/22/18 at 11:29 Coded Allergies: ciprofloxacin (Unverified Allergy, Severe, 07/22/18) heparin (Unverified Allergy, Severe, 07/22/18) levofloxacin (Unverified Allergy, Severe, 07/22/18) potassium (Unverified Allergy, Unknown, 07/22/18) Uncoded Allergies: TAPE (Allergy, Mild, 11/06/16) Past Surgical History dialysis graft placement pacemaker Family History Significant Family History: heart disease, cancer Social History allergies : Tape, ciprofloxacin, heparin, Levaquin, Smoking Status: Never smoker Exam/Review of Systems Vital Signs Vitals Vital Signs Date Temp Pulse Resp B/P (MAP) Pulse Ox O2 O2 Flow FiO2 Time Delivery Rate 07/22/18 96.7 74 20 101/74 100 08:21 (83) 07/22/18 Nasal 2.0 08:01 Cannula Exam Constitutional: alert, oriented (?), distress, frail Head: atraumatic ENMT: No mucosa pink and moist Respiratory: diminished breath sounds; No congested cough, No labored breathing Cardiovascular: murmurs/extra sounds; No regular rate and rhythm (tachycardia) Gastrointestinal: soft, bowel sounds, distended; No non-tender Extremities: edema, other (msc wasting ) Neurological: No focal weakness Additional Comments EKG: paced ventricular rhythm at 74 bpm, left axis deviation, wide complex, no concerning ST elevations or depressions noted, PROCEDURE: XR Chest. CLINICAL INDICATION: Pain TECHNIQUE: AP view of the chest was obtained COMPARISON: Chest 05/09/2016 FINDINGS: Left infraclavicular AICD device with 3 electrodes extending the right heart that appear unremarkable. Heart is moderately enlarged. Hypoventilatory chest. Mild pulmonary vascular congestion. Increased density at the bases more prominent the left base may all be due to atelectasis though infiltrates cannot be excluded. Remainder lungs are clear. No definite pleural effusions and pneumothorax. IMPRESSION: 1. Moderate cardiomegaly and mild pulmonary vascular congestion. 2. Mild increased density at the bases more prominent left base may all be due to atelectasis however infiltrates cannot be excluded. RPTAT:AAJJ B Valle, Physician Date Time Electronically viewed and signed by Josefina Valle, Physician on 07/22/2018 08:46 BM/ CC: SIMONE PEREA MD [id number] TRINITY ELENA July 22, 2018 10:06
[2018-07-22] MEDS ORDERED: CALCIUM GLUCONATE 10% 1 GM in DEXTROSE 5% 100 ML IVPB ONE (10:30)
[2018-07-22] MEDS ORDERED: ONDANSETRON 4 MG INJ IV PRN (10:30)
[2018-07-22] MEDS ORDERED: VANCOMYCIN IV PER PHARMACY XX SCH ×2 (10:30→18:00)
[2018-07-22] MEDS ORDERED: FAMOTIDINE 20 MG INJ IV SCH (10:30)
[2018-07-22] MEDS ORDERED: DOCUSATE SODIUM 100 MG CAP PO SCH (10:30)
[2018-07-22] MEDS ORDERED: LORAZEPAM 2 MG INJ IV PRN (10:30)
[2018-07-22] MEDS ORDERED: NORepinephrine 8MG/250 ML (PMX 250 ML ONE (10:48)
[2018-07-22] MEDS: NORepinephrine 8MG/250 ML (PMX 250 ML IV SCH ×2 (10:50→19:09)
[2018-07-22] MEDS ORDERED: VANCOMYCIN 500 MG (PMX) 100 ML IVPB ONE (11:00)
[2018-07-22] MEDS: CEFEPIME 1GM/50 ML (PMX) 50 ML IVPB SCH (11:00)
[2018-07-22] MEDS ORDERED: DOPamine-D5W 1.6 MG/ML 250 ML IV SCH (11:30)
[2018-07-22] MEDS ORDERED: PHENYLephrine 20MG IN 250 ML 250 ML IV SCH (12:00)
[2018-07-22] MEDS: SEVELAMER 800 MG TAB PO SCH ×2 (12:00→17:24)
[2018-07-22] MEDS ORDERED: MIDAZOLAM (DRIP) 50 mg/50 mL 50 ML IV STA (12:29)
[2018-07-22] MEDS ORDERED: MIDAZOLAM (DRIP) 50 mg/50 mL 50 ML IV SCH (12:30)
[2018-07-22] MEDS ORDERED: ACCU-CHEK XX SCH (12:30)
[2018-07-22] MEDS ORDERED: FENTAnyl (DRIP) 1000 mcg/100mL 100 ML IV ONE (12:30)
[2018-07-22] MEDS ORDERED: ACETAMINOPHEN 650MG/20.3ML CUP PO PRN (12:30)
[2018-07-22] MEDS ORDERED: SOD CHLORIDE 0.9% 1,000 ML IV ONE (12:30)
[2018-07-22] MEDS ORDERED: MEPERIDINE 25 MG INJ IV PRN ×2 (12:30)
[2018-07-22] MEDS ORDERED: ACETAMINOPHEN 650 MG SUPP PR PRN (12:30)
[2018-07-22] MEDS ORDERED: DEXTROSE 50% 50 ML SYRINGE IV PRN ×4 (12:30→18:00)
[2018-07-22] MEDS ORDERED: HYDROCORTISONE 100 MG INJ IV ONE (13:00)
[2018-07-22] MEDS: ALBUMIN HUMAN 25% 100 ML IV SCH ×2 (13:15→21:22)
[2018-07-22] MEDS ORDERED: INSULIN HUMAN REGULAR 100 UNIT in SOD CHLORIDE 0.9% 99 ML IV SCH ×2 (14:00→20:00)
--- NOTE | 2018-07-22 14:03 | CONS ---
DATE OF ADMISSION: 07/22/2018 DATE OF CONSULTATION: TYPE OF CONSULTATION: Renal. REASON FOR CONSULTATION: Hemodialysis. HISTORY OF PRESENTING ILLNESS: This is a 27-year-old woman with a history of retinoblastoma with a history of blindness who has been on hemodialysis Saturday, , Saturday for 4 years, likely secondary to tubulointerstitial nephritis, atrophy of the right kidney followed by Dr. Lake as an outpatient, history of pacemaker, who was just recently discharged from [facility] secondary to endocarditis. She was brought in by paramedics due to altered mental status. The patient is currently intubated. History is obtained from the brother by the bedside. According to the brother, the patient was recently at [facility] for a few days. She was diagnosed with endocarditis. She was given IV antibiotics and was discharged last week. She was continued on her antibiotics in hemodialysis center and also p.o. Rifampin. The patient after that received 2 sessions of dialysis in the hemodialysis center this morning. Paramedics drove to come and see the patient to take the dialysis center. The patient was altered and did not seem to be herself and was brought in by paramedics to the hospital instead. On arrival to the hospital, initial blood pressure of 110/84, temperature 96.7, pulse 74, respirations 12, saturating 97%. White count 12.5, hemoglobin 9.3, platelet count 72, potassium was 3.1, bicarbonate was 18, BUN of 69, creatinine of 7.90. Initial glucose was 25. Lactic acid was 12.1. Total bilirubin was 8, direct bilirubin was 5.7, indirect 2.3. The patient also had troponin of 0.140. Lipase was 734. She had liver ultrasound that showed decompressed gallbladder with nonspecific gallbladder wall thickening, trace nonspecific perihepatic fluid, atrophic right kidney. Chest x-ray initially showed moderate cardiomegaly, mild pulmonary vascular congestion. However, the patient all of a sudden became altered and lost her pulses. A code blue was called. pt was in PEA arrest . plz see code sheet . The patient got intubated. Currently, the patient is hypotensive on 2 pressors. PAST MEDICAL HISTORY: 1. End-stage renal disease on hemodialysis Saturday, and Saturday. 2. Hypertension. 3. Retinitis pigmentosa. 4. History of recent endocarditis. 5. Cardiomyopathy. 6. Pacemaker dependent. ALLERGIES: 1. ACETAMINOPHEN. 2. CIPROFLOXACIN. 3. HEPARIN. 4. LEVOFLOXACIN. PAST SURGICAL HISTORY: AV graft placement on the right and the pacemaker on the left 4-1/2 years ago. SOCIAL HISTORY: Lives with mother. Currently, history is obtained from the brother. FAMILY HISTORY: No history of kidney problems in the family. REVIEW OF SYSTEMS: Unobtainable as the patient is currently intubated. PHYSICAL EXAMINATION: VITAL SIGNS: Currently temperature 96.7, blood pressure was 60s over 40s, heart rate of 90s. GENERAL: The patient is intubated, some agonal breathing. HEENT: Pupils are sluggish to respond bilaterally. HEART: Feeble heart sounds. LUNGS: Coarse breath sounds bilaterally. ABDOMEN: Soft, nontender, nondistended. EXTREMITIES: Thin extremities. The patient has a right AV graft present with feeble bruit and thrill. The patient also has a left pacemaker. LABORATORY DATA: White count of 12.5, hemoglobin 9.3, platelet count 72. Sodium of 146, potassium of 3.1, bicarbonate of 18, BUN of 69, creatinine of 7.90. Lactate was 12. Troponin 0.140. Lipase was 734. Diagnostic data: Chest x-ray showed pulmonary congestion. EKG initially had showed ventricular rhythm, paced at 74, left axis deviation, no concerning ST elevations or depression. MEDICATIONS: The patient received: 1. Zofran. 2. Magnesium. 3. Rocephin. 4. Azithromycin. ASSESSMENT AND PLAN: This is a 27-year-old female who presented with: 1. Status post code blue with PEA arrest , unresponsive, could be secondary to cardiac in origin/rule out embolic infarct to the brain/hypoglycemia/septic shock. 2. Septic shock with history of endocarditis, source questionable. This patient had a pacemaker in the chest and also has AV graft. 3. Severe anion gap acidosis secondary to septic shock with elevated lactate 4. End-stage renal disease on hemodialysis secondary to right kidney atrophy, chronic tubulointerstitial nephritis. 5. Elevated troponin, likely secondary to acute coronary syndrome. 6. Chronic atrial fibrillation.on Eliquis 7. Cardiomyopathy, status post pacemaker. 8. Chronic thrombocytopenia. 9. Chronic megaloblastic anemia. 10. Abnormal LFTs with elevated bilirubin level. 11. Leukocytosis. 12. Anemia, megaloblastic. 13 Resp failure 14 hx retinitis pigementosa PLAN: 1. At this period of time, the patient's condition is very critical. 2. The patient has received IV saline boluses and the patient is on D5 NS. We will continue to give aggressive fluid challanges 3. The patient will also be started on broad spectrum antibiotics, vancomycin and meropenem. Blood cultures will be sent. 4. The patient will be also started on IV steroids. 5. Serial troponins, EKG stat, echo should be obtained. ABG is ordered 6. The patient's condition is very critical. Currently, the patient is unstable being on 3 pressors to be initiated on hemodialysis. Especially, we do not have the capability of CRRT in this hospital. If the patient is started on hemodialysis, the patient might get coded again. I spoke to the family at bedside. Recommend stabilising pt fir 7. I recommend cardiac and ID consultation. 8. We will obtain the records from the dialysis center from previous discharge summary regarding admission to [facility]. 9. Rest of the treatment will depend on the patient's hospitalization course. 10. I spoke to the brother at bedside. The patient's condition is very critical. Dictated By: GIOVANNA HILL/HEIDE Conf#: [id number] DID#: [id number] CC: SIMONE PEREA MD;*EndCC* MTDD
--- NOTE | 2018-07-22 14:24 | RADRPT ---
Echocardiogram Report Patient Name: SHASTA LIZAMAatient ID: [id number] : 1990 (27y 11m)Study Date: 07/22/2018 12:10:04 PM Gender: FAccession #: [id number] Tech: Mateo [facility] Location: [facility] Ref.Physician: TRINITY ELENA Height(Cm): BSA: Weight(Kg): Quality: AdequateOrder Physician: TRINITY ELENA Account #: Procedures: Echocardiographic Report: Transthoracic echocardiogram with complete 2D, M-Mode, and doppler examination. Indications: Elevated troponins. Measurements: 2D/M Mode Doppler Measurement Value Normal Range Measurement Value Normal Range LVIDd 2D 4.9 [ 3.8 - 5.2 ] cm AV Peak Wesly 1.6 [ 100.0 - 170.0 ] cm/sec LVIDs 2D 3.8 [ 2.2 - 3.5 ] cm AV Peak PG 10.0 [ 2.0 - 9.0 ] mmHg LVPWd 2D 0.9 [ 0.6 - 0.9 ] cm LVOT Peak Wesly 1.0 [ 70.0 - 110.0 ] cm/sec IVSd 2D 1.0 [ 0.6 - 0.9 ] cm LVOT Peak PG 4.0 [ 2.0 - 6.0 ] mmHg AoR Diam 2D 1.8 [ 2.3 - 3.1 ] cm MV E Peak Wesly 1.2 [ 60.0 - 130.0 ] cm/sec EDV 2D 115.0 [ 46.0 - 106.0 ] ml MV A Peak Wesly 0.3 [ 100.0 - 120.0 ] cm/sec ESV 2D 63.1 [ 14.0 - 42.0 ] ml MV E/A 3.9 [ 0.8 - 1.5 ] ratio EF 2D 45.1 [ 54.0 - 74.0 ] percent MV Decel Time 130 [ 104 - 258 ] msec LA Dimen 2D 3.7 [ 2.7 - 3.8 ] cm Lat E` Wesly 0.0 [ 10.0 - 15.0 ] cm/sec Lateral E/E` 30.1 [ 1.0 - 2.0 ] ratio MV E/A 3.9 [ 0.8 - 1.5 ] ratio TR Peak Wesly 3.0 [ 100.0 - 280.0 ] cm/sec TR Peak PG 36.0 mmHg RVSP 39.0 [ 10.0 - 36.0 ] mmHg Findings: Left Ventricle: Normal left ventricular wall thickness. Mild enlargement of left ventricle cavity. Mild left ventricular systolic dysfunction. Ejection fraction is visually estimated at 45 %. Abnormal Diastolic Function. Right Ventricle: Normal right ventricular size. Mild right ventricular systolic dysfunction. Linear artifact in right ventricle suggestive of catheter, pacer lead, or ICD lead. Left Atrium: The left atrium is normal in size. Right Atrium: There is mild enlargement of right atrium. Mitral Valve: Mild mitral leaflet calcification. Mild mitral annular calcification. Moderate mitral valve regurgitation. Aortic Valve: No hemodynamically significant aortic stenosis by doppler. Aortic cusps appear mildly calcified. Trace aortic valve regurgitation. Tricuspid Valve: Normal appearance of the tricuspid valve. Estimated peak PA systolic pressure 39 mmHg. There is moderate tricuspid regurgitation. Pulmonic Valve: Normal pulmonic valve appearance. There is mild pulmonic regurgitation. Pericardium: Normal pericardium with no significant pericardial effusion. Aorta: Normal aortic root. IVC: Normal IVC with respiratory collapse, however patient on ventilator. Conclusions: Normal left ventricular wall thickness. Mild enlargement of left ventricle cavity. Mild left ventricular systolic dysfunction. Ejection fraction is visually estimated at 45 %. Abnormal Diastolic Function. Normal right ventricular size. Mild right ventricular systolic dysfunction. Linear artifact in right ventricle suggestive of catheter, pacer lead, or ICD lead. The left atrium is normal in size. There is mild enlargement of right atrium. Moderate mitral valve regurgitation. No hemodynamically significant aortic stenosis by doppler. Trace aortic valve regurgitation. Estimated peak PA systolic pressure 39 mmHg. There is moderate tricuspid regurgitation. Normal pericardium with no significant pericardial effusion. Electronically Signed By: Jonathan Woodard 2018-07-22 14:24:07 PDT
--- NOTE | 2018-07-22 18:04 | CONS ---
Assessment/Plan Assessment/Plan Hospital Course (Demo Recall) Severe shock Likely sepsis Cardiomyopathy End-stage renal disease on hemodialysis PEA cardiac arrest Respiratory failure status post intubation Mildly elevated troponin -Patient presented with altered mental status and then became unresponsive with PEA cardiac arrest -ACLS protocol was performed, patient intubated -Patient currently on 1 IV pressor, titrate to maintain SBP greater than 90 a nd/or map above 60 -DC all antihypertensives -Antibiotics as per infectious disease -Fluid management and electrolytes as per nephrology -Would recommend pulmonary evaluation for vent management -Greater than 60 minutes of critical care time taken in the care of this patient Consultation Date/Type/Reason Admit Date/Time Type of Consult Cardiology Reason for Consultation Shock Date/Time of Note DATE: 07/22/18 TIME: 17:53 Hx of Present Illness This is a 27-year-old female with past medical history of cardia myopathy, pacemaker she is dependent, end-stage renal disease on hemodialysis was brought to the emergency room secondary to worsening mental status and fatigue. As per family, patient was recently in outside facility for presumed sepsis. Patient with bacteremia and had extensive work-up and etiology was unclear. Patient was discharged home at home for the past approximately 10 to 12 days. This morning, patient with altered mental status and fatigue. Patient brought to emergency room. Patient was worsening mental status and PEA cardiac arrest and intubat ion. Patient start on IV pressors and currently in the ICU. She is not responsive to verbal stimuli or to pain but she is currently being sedated 12 point review of systems was performed with all pertinent positives and negatives mentioned above and all else is negative Past Medical History End-stage renal disease on hemodialysis Recent bacteremia Medical History: congestive heart failure Home Meds Reported Medications Sevelamer Hcl* (Renagel*) 800 Mg Tablet, 800 MG PO WITH MEALS, TAB 07/22/18 Folic Acid/Vitamin B Comp W-C (Nephrocaps Capsule) 1 Mg Capsule, 1 MG PO DAILY, CAP 07/22/18 Folic Acid* (Folic Acid*) 1 Mg Tablet, 1 MG PO DAILY, TAB 07/22/18 Diltiazem Hcl* (Cardizem SR*) 60 Mg Capsr, 60 MG PO Q12, #60 CAP 07/22/18 Apixaban* (Eliquis*) 5 Mg Tablet, 5 MG PO BID, TAB 07/22/18 Discontinued Reported Medications Folic Acid/Vitamin B Comp W-C (Nephrocaps Capsule) 1 Mg Capsule, 1 TAB PO DAILY, CAP 11/06/16 Apixaban* (Eliquis*) 5 Mg Tablet, 2.5 MG PO BID, TAB 11/06/16 Carboxymethylcellulose Sodium* (Refresh Tears*) 15 Ml Drops, 1 DROP BOTH EYES TID, #1 EA 11/06/16 Sevelamer Hcl* (Renagel*) 800 Mg Tablet, 800 MG PO WITH MEALS PRN for PRN, TAB 11/06/16 Diltiazem Hcl* (Cardizem SR*) 60 Mg Capsr, 60 MG PO Q12, #60 CAP 11/06/16 Folic Acid* (Folic Acid*) 1 Mg Tablet, 1 MG PO DAILY, TAB 09/17/13 Discontinued Scripts Ondansetron Hcl* (Zofran*) 4 Mg Tablet, 4 MG PO Q6H PRN for NAUSEA AND OR VO MITING, #30 TAB Prov:COTY HARDIN V[employer] 11/06/16 Famotidine* (Pepcid*) 20 Mg Tablet, 20 MG PO BID, #15 TAB Prov:COTY HARDIN V[employer] 11/06/16 Medications Current Medications Dextrose/Sodium Chloride 1,000 ml @ 50 mls/hr Q20H IV Last administered on 07/22/18at 10:01; Admin Dose 50 MLS/HR; Start 07/22/18 at 10:01 Lorazepam (Ativan) 0.5 mg Q6H PRN IV .ANXIETY; Start 07/22/18 at 10:30 Ondansetron HCl (Zofran Inj) 4 mg Q6H PRN IV NAUSEA/VOMITING; Start 07/22/18 at 10:30 Aspirin (Aspirin) 81 mg DAILY PO ; Start 07/23/18 at 09:00 Docusate Sodium (Colace) 100 mg Q12H PO ; Start 07/22/18 at 10:30 Famotidine (Pepcid Iv) 20 mg Q12 IV ; Start 07/22/18 at 10:30; Stop 07/22/18 at 21:01 Pantoprazole (Protonix Tab) 40 mg DAILY@06 PO ; Start 07/23/18 at 06:00 Cefepime HCl 50 ml @ 100 mls/hr Q24H IVPB ; Start 07/22/18 at 11:00 Vancomycin HCl (Vanco Iv Per Pharmacy) VANCOMYCIN PER PHARMACY PER PROTOCOL XX ; Start 07/22/18 at 10:30 Sevelamer HCl (Renagel) 800 mg WITH MEALS PO ; Start 07/22/18 at 12:00 Multivit/Ca Carb/ B Cmplx/FA/Prenat (Lalita-Abigail) 1 tab DAILY PO ; Start 07/23/18 at 09:00 Dopamine HCl/ Dextrose 250 ml @ 2.205 mls/ hr TITRATE IV Last administered on 07/22/18at 11:31; Admin Dose 15.435 MLS/HR; Start 07/22/18 at 11:30 Phenylephrine HCl 250 ml @ 75 mls/hr TITRATE IV ; Start 07/22/18 at 12:00 Hydrocortisone (Solu-Cortef) 200 mg Q8 IV ; Start 07/22/18 at 14:00 Albumin Human 100 ml @ 100 mls/hr Q8H IV Last administered on 07/22/18at 13:15; Admin Dose 100 MLS/HR; Start 07/22/18 at 13:00; Stop 07/23/18 at 05:59 Midazolam HCl 50 ml @ 3 mls/hr ONCE STAT IV Last administered on 07/22/18at 13:35; Admin Dose 3 MLS/HR; Start 07/22/18 at 12:29; Stop 07/23/18 at 05:08 Fentanyl 100 ml @ 5 mls/hr CONTINUOUS DRIP ONCE IV ; Start 07/22/18 at 12:30; Stop 07/23/18 at 08:29 Acetaminophen (Tylenol Supp) 650 mg Q4H PRN OR TEMP > 37C; Start 07/22/18 at 12:30 Acetaminophen (Tylenol Liquid) 650 mg Q4H PRN PO TEMP > 37C; Start 07/22/18 at 12:30 Acetaminophen (Tylenol Supp) 500 mg Q6 OR ; Start 07/23/18 at 13:30 Acetaminophen (Tylenol Liquid) 500 mg Q6 PO ; Start 07/23/18 at 13:30 Meperidine HCl (Demerol) 12.5 mg Q4H PRN IV POST OPERATIVE SHIVERING; Start 07/22/18 at 12:30 Meperidine HCl (Demerol) 25 mg Q4H PRN IV POST OPERATIVE SHIVERING; Start 07/22/18 at 12:30 Eye Lubricant (Akwa Oint) 1 applic Q6 BOTH EYES ; Start 07/22/18 at 18:00 Eye Lubricant (Artificial Tears Oph) 2 drop Q6 BOTH EYES ; Start 07/22/18 at 18:00 Norepinephrine 250 ml @ 1.875 mls/ hr TITRATE IV Last administered on 07/22/18at 10:50; Admin Dose 56.25 MLS/HR; Start 07/22/18 at 13:00 Allergies: Coded Allergies: ciprofloxacin (Unverified Allergy, Severe, 07/22/18) heparin (Unverified Allergy, Severe, 07/22/18) levofloxacin (Unverified Allergy, Severe, 07/22/18) acetaminophen (Unverified Allergy, Mild, 07/22/18) potassium (Unverified Allergy, Unknown, 07/22/18) Uncoded Allergies: TAPE (Allergy, Mild, 11/06/16) Past Surgical History Past Surgical Hx: other (Including but not limited to pacemaker, dialysis graft) Social History Alcohol Use: none Smoking Status: Never smoker Exam/Review of Systems Vital Signs Vitals Vital Signs Date Temp Pulse Resp B/P (MAP) Pulse Ox O2 O2 Flow FiO2 Time Delivery Rate 07/22/18 81 16:00 07/22/18 18 97/83 (88) 100 Mechanical 15:00 Ventilator 07/22/18 50 15:00 07/22/18 96.4 14:31 07/22/18 2.0 10:00 Exam Exam Intubated, sedated, no apparent distress Head: normocephalic ENMT: intubated Respiratory: other (Coarse breath sounds bilaterally, scattered mild crackles, no wheezing) Cardiovascular: regular rate and rhythm (Intermittent irregularities), systolic murmur Gastrointestinal: soft, bowel sounds, other (No grimacing with palpation) Extremities: edema (Trace) Labs Result Diagram: 07/22/18 0819 07/22/18 1522 Results 24hrs Laboratory Tests Test 07/22/18 08:00 07/22/18 08:19 07/22/18 08:24 07/22/18 09:21 Bedside Glucose 28 *L 196 White Blood Count 12.5 H Red Blood Count 2.50 #L Hemoglobin 9.3 L Hematocrit 30.0 L Mean Corpuscular 120.0 H Volume Mean Corpuscular 37.2 H Hemoglobin Mean Corpuscular 31.0 L Hemoglobin Concent Red Cell 26.1 #H Distribution Width Platelet Count 72 #L Mean Platelet Volume 12.7 #H Immature 0.700 H Granulocytes % Neutrophils % Segmented 72 Neutrophils % (Manual) Band Neutrophils % 5 H (Manual) Lymphocytes % Lymphocytes % 16 (Manual) Reactive Lymphocytes 2 H % (Manual) Monocytes % Monocytes % (Manual) 5 Eosinophils % Basophils % Nucleated Red Blood 1 H Cells % Immature 0.090 H Granulocytes # Neutrophils # Neutrophils # 9.1 H (Manual) Band Neutrophils # 0.6 Lymphocytes (Manual) 2.0 Lymphocytes # Reactive Lymphocytes 0.2 H # Monocytes # Monocytes # (Manual) 0.6 Eosinophils # Basophils # Nucleated Red Blood Cells # Platelet Estimate DECREASED Giant Platelets 1 H Dimorphic Red Blood 1+ Cells Polychromasia 1+ Poikilocytosis 1+ Anisocytosis 1+ Macrocytosis 2+ Tear Drop Cells 1+ Ovalocytes 1+ Elliptocytes 1+ Sodium Level 146 H Potassium Level 3.1 L Chloride Level 96 L Carbon Dioxide Level 18 L Anion Gap 32 H Blood Urea Nitrogen 69 H Creatinine 7.90 H Est Glomerular 6 L Filtrat Rate mL/min Glucose Level 25 *L Calcium Level 7.0 L Total Bilirubin 8.0 H Direct Bilirubin 5.70 H Indirect Bilirubin 2.3 H Aspartate Amino 68 H Transf (AST/SGOT) Alanine 37 Aminotransferase (AL T/SGPT) Alkaline Phosphatase 174 H Troponin I 0.140 *H Total Protein 8.7 H Albumin 4.4 Globulin 4.30 H Albumin/Globulin 1.02 Ratio Lipase 734 H POC Venous Lactate 9.1 *H Test 07/22/18 10:09 07/22/18 11:05 07/22/18 15:22 07/22/18 15:33 Lactic Acid Level 12.1 *H Creatine Kinase 309 H 286 H Creatine Kinase 3.2 4.6 Index Creatinine Kinase MB 10.00 H 13.20 H (Mass) Troponin I 0.128 *H 0.190 *H Bedside Glucose 235 H 490 *H Sodium Level 139 Potassium Level 3.7 Chloride Level 100 Carbon Dioxide Level 7 #*L Anion Gap 32 H Blood Urea Nitrogen 56 H Creatinine 6.09 H Est Glomerular 8 L Filtrat Rate mL/min Glucose Level 494 #*H Calcium Level 8.1 L Phosphorus Level 6.9 H Magnesium Level 2.8 H Imaging Imaging V paced at 74 bpm Medications Medications Current Medications Dextrose/Sodium Chloride 1,000 ml @ 50 mls/hr Q20H IV Last administered on 07/22/18at 10:01; Admin Dose 50 MLS/HR; Start 07/22/18 at 10:01 Lorazepam (Ativan) 0.5 mg Q6H PRN IV .ANXIETY; Start 07/22/18 at 10:30 Ondansetron HCl (Zofran Inj) 4 mg Q6H PRN IV NAUSEA/VOMITING; Start 07/22/18 at 10:30 Aspirin (Aspirin) 81 mg DAILY PO ; Start 07/23/18 at 09:00 Docusate Sodium (Colace) 100 mg Q12H PO ; Start 07/22/18 at 10:30 Famotidine (Pepcid Iv) 20 mg Q12 IV ; Start 07/22/18 at 10:30; Stop 07/22/18 at 21:01 Pantoprazole (Protonix Tab) 40 mg DAILY@06 PO ; Start 07/23/18 at 06:00 Cefepime HCl 50 ml @ 100 mls/hr Q24H IVPB ; Start 07/22/18 at 11:00 Vancomycin HCl (Vanco Iv Per Pharmacy) VANCOMYCIN PER PHARMACY PER PROTOCOL XX ; Start 07/22/18 at 10:30 Sevelamer HCl (Renagel) 800 mg WITH MEALS PO ; Start 07/22/18 at 12:00 Multivit/Ca Carb/ B Cmplx/FA/Prenat (Lalita-Abigail) 1 tab DAILY PO ; Start 07/23/18 at 09:00 Dopamine HCl/ Dextrose 250 ml @ 2.205 mls/ hr TITRATE IV Last administered on 07/22/18at 11:31; Admin Dose 15.435 MLS/HR; Start 07/22/18 at 11:30 Phenylephrine HCl 250 ml @ 75 mls/hr TITRATE IV ; Start 07/22/18 at 12:00 Hydrocortisone (Solu-Cortef) 200 mg Q8 IV ; Start 07/22/18 at 14:00 Albumin Human 100 ml @ 100 mls/hr Q8H IV Last administered on 07/22/18at 13:15; Admin Dose 100 MLS/HR; Start 07/22/18 at 13:00; Stop 07/23/18 at 05:59 Midazolam HCl 50 ml @ 3 mls/hr ONCE STAT IV Last administered on 07/22/18at 13:35; Admin Dose 3 MLS/HR; Start 07/22/18 at 12:29; Stop 07/23/18 at 05:08 Fentanyl 100 ml @ 5 mls/hr CONTINUOUS DRIP ONCE IV ; Start 07/22/18 at 12:30; Stop 07/23/18 at 08:29 Acetaminophen (Tylenol Supp) 650 mg Q4H PRN OR TEMP > 37C; Start 07/22/18 at 12:30 Acetaminophen (Tylenol Liquid) 650 mg Q4H PRN PO TEMP > 37C; Start 07/22/18 at 12:30 Acetaminophen (Tylenol Supp) 500 mg Q6 OR ; Start 07/23/18 at 13:30 Acetaminophen (Tylenol Liquid) 500 mg Q6 PO ; Start 07/23/18 at 13:30 Meperidine HCl (Demerol) 12.5 mg Q4H PRN IV POST OPERATIVE SHIVERING; Start 07/22/18 at 12:30 Meperidine HCl (Demerol) 25 mg Q4H PRN IV POST OPERATIVE SHIVERING; Start 07/22/18 at 12:30 Eye Lubricant (Akwa Oint) 1 applic Q6 BOTH EYES ; Start 07/22/18 at 18:00 Eye Lubricant (Artificial Tears Oph) 2 drop Q6 BOTH EYES ; Start 07/22/18 at 18:00 Norepinephrine 250 ml @ 1.875 mls/ hr TITRATE IV Last administered on 07/22/18at 10:50; Admin Dose 56.25 MLS/HR; Start 07/22/18 at 13:00 Jonathan Woodard DO July 22, 2018 18:04
--- NOTE | 2018-07-22 18:06 | EN ---
Date/Time of Note Date/Time of Note DATE: 07/22/18 TIME: 18:04 Event Note Cardiology Cardiology Event Note Left radial artery arterial access Date of procedure 07/22/2018 Patient with shock and inconsistent blood pressures with noninvasive measuring. Given patient IV pressor, arterial access was needed for hemodynamic monitoring. Left arm was prepped. Using ultrasound guidance, left radial artery was cannulated on first attempt, catheter placed. There was an arterial waveform. This was secured with Steri-Strips and Tegaderms as well as the assistance of nursing staff. There is no immediate complications Blood loss was minimal Jonathan Woodard DO July 22, 2018 18:06
[2018-07-22] MEDS ORDERED: NA BICARBONATE 8.4% 50 ML SYG IV ONE (19:00)
[2018-07-22] MEDS ORDERED: SOD CHLORIDE 0.9% 500 ML IV ONE ×2 (19:30→20:00)
[2018-07-22] MEDS: SODIUM BICARBONATE (IV ADD) 125 MEQ in DEXTROSE 5% 1,000 ML IV SCH (20:46)
[2018-07-22] MEDS ORDERED: EPINEPHrine 0.1 MG/ML SYG ONE (21:00)
[2018-07-22] MEDS ORDERED: DOPamine-D5W 1.6 MG/ML 250 ML ONE (21:00)
[2018-07-22] MEDS ORDERED: DEXTROSE 50% 50 ML SYRINGE ONE (21:00)
[2018-07-22] MEDS ORDERED: CA CHLORIDE 10% 10 ML SYRINGE ONE (21:00)
[2018-07-22] MEDS ORDERED: LIDOCAINE 100 MG SYRINGE ONE (21:00)
[2018-07-22] MEDS ORDERED: SUCCINYLCHOLINE CHLORIDE 100 MG/5 ML SYG IV ONE (21:00)
[2018-07-22] MEDS ORDERED: DILTIAZEM (SR) 60 MG CAP PO SCH (21:00)
[2018-07-22] MEDS: ACCU-CHEK XX SCH ×3 (21:00→23:00)
[2018-07-22] MEDS ORDERED: SOD CHLORIDE 0.9% 1,000 ML IV SCH (21:30)
[2018-07-22] MEDS: HYDROCORTISONE 250 MG INJ IV SCH (21:35)
[2018-07-22] MEDS: DOCUSATE SODIUM 10 MG/ML (10ML CUP) NGT SCH (22:00)
[2018-07-22] MEDS: MIDAZOLAM (DRIP) 50 mg/50 mL 50 ML IV SCH (23:45)
[2018-07-23] VITALS (98 sets, daily range): BP systolic 74–142; BP diastolic 56–117; PULSE 60–114; RESP 13–21; Ht 149.9 cm; Wt 39.3 kg
[2018-07-23] MEDS: ACCU-CHEK XX SCH ×17 (01:00→21:00)
[2018-07-23] MEDS: NORepinephrine 8MG/250 ML (PMX 250 ML IV SCH (01:01)
[2018-07-23] MEDS ORDERED: DEXTROSE 5%-0.45% NACL 1,000 ML IV SCH (03:00)
[2018-07-23] MEDS: OCULAR LUBRICANT 3.5 GM OPH OINT BOTH EYES SCH ×5 (06:00→23:45)
[2018-07-23] MEDS: ARTIFICIAL TEARS 15 ML OPH BOTH EYES SCH ×5 (06:00→23:45)
[2018-07-23] MEDS ORDERED: PANTOPRAZOLE (EC) 40 MG TAB PO SCH (06:00)
[2018-07-23] MEDS: ALBUMIN HUMAN 25% 100 ML IV SCH (06:00)
[2018-07-23] MEDS: HYDROCORTISONE 250 MG INJ IV SCH ×3 (06:03→22:05)
[2018-07-23] MEDS: SEVELAMER CARBONATE 800 MG TABLET PO SCH ×3 (07:35→16:26)
[2018-07-23] MEDS: POTASSIUM CHLORIDE 100 ML IVPB SCH ×2 (07:55→09:01)
--- NOTE | 2018-07-23 08:28 | CONS ---
Assessment/Plan Assessment/Plan Assessment/Plan (Daily) Chest x-ray showing very minimal pulmonary vascular congestion. Ventilator setting; AC of 16, tidal volume 400, PEEP of 5, 30% FiO2. Assessment and recommendations; 1. Patient admitted with hypoglycemia causing cardiac arrest status post CPR with revival of vital signs. 2. End-stage renal disease, on hemodialysis. 3. History of blindness. 4. History of recent respiratory failure 2 weeks ago requiring intubation at another facility. 5. Essentially dependent state. 6. History of cardiac arrhythmia, status post pacemaker placement 7. Underlying cardia myopathy. 8. Mild pancreatitis. 9. Severe metabolic acidosis on admission with interval improvement. 10. History of DVTs. 11. Recent history of febrile seizure. 12. Diabetes. 13. Anemia and severe thrombocytopenia. Continue current supportive care. Patient to be transfused blood. Hemodialysis per box spring upholsterer. Patient to be given sedation vacation in 24 hours to assess mental status. I did have a very detailed discussion with the patient's sister at bedside and answered all her questions. 40 minutes of critical care time was spent evaluating the patient. Consultation Date/Type/Reason Admit Date/Time Date of Consultation: July 23, 2018 Type of Consult Pulmonary/critical care Pulmonary consult requested for evaluation of respiratory failure. Patient is a 27-year-old female who was brought into the hospital with confusion. Patient was found to be severely hypoglycemic but because of hemodynamic instability and poor mental status she was intubated by the ER physician. Patient also was in PEA and required CPR lasting 10 minutes. There was spontaneous recovery of mental status not requiring hypothermia protocol. Patient however has remained mildly hypotensive requiring low-dose Levophed. By the time I saw her, patient is orally intubated and sedated. History was obtained from medical records as well as from patient's sister who was present in the room. According to the patient's sister patient also had similar episode about 2 weeks ago requiring intubation at another facility. Past medical history; 1. History of end-stage renal disease for the last 5 years. 2. History of retinal pigmentosa. 3. Patient had an episode of febrile seizure 2 weeks ago. Without any prior history of seizure activity. 4. Patient is heavily dependent on ADLs. 5. History of diabetes. 6. History of DVT. Patient however has been off anticoagulation per her roll edge machine operator recommendations. Medications; reviewed. Patient is currently on Levophed 2 mics per minute, Versed 4 mg/h, insulin drip 1 2units/h. Other medications were reviewed as well. Allergies; as outlined above. Family history; she is single. She lives with her family at home. Occupational history; patient is on disability. Review of system; unable to be obtained. General exam; young female, appears quite emaciated. Orally intubated. Sedated. Currently in no distress. Date/Time of Note DATE: 07/23/18 TIME: 08:21 Past Medical History Home Meds Reported Medications Sevelamer Hcl* (Renagel*) 800 Mg Tablet, 800 MG PO WITH MEALS, TAB 07/22/18 Folic Acid/Vitamin B Comp W-C (Nephrocaps Capsule) 1 Mg Capsule, 1 MG PO DAILY, CAP 07/22/18 Folic Acid* (Folic Acid*) 1 Mg Tablet, 1 MG PO DAILY, TAB 07/22/18 Diltiazem Hcl* (Cardizem SR*) 60 Mg Capsr, 60 MG PO Q12, #60 CAP 07/22/18 Apixaban* (Eliquis*) 5 Mg Tablet, 5 MG PO BID, TAB 07/22/18 Discontinued Reported Medications Folic Acid/Vitamin B Comp W-C (Nephrocaps Capsule) 1 Mg Capsule, 1 TAB PO DAILY, CAP 11/06/16 Apixaban* (Eliquis*) 5 Mg Tablet, 2.5 MG PO BID, TAB 11/06/16 Carboxymethylcellulose Sodium* (Refresh Tears*) 15 Ml Drops, 1 DROP BOTH EYES TID, #1 EA 11/06/16 Sevelamer Hcl* (Renagel*) 800 Mg Tablet, 800 MG PO WITH MEALS PRN for PRN, TAB 11/06/16 Diltiazem Hcl* (Cardizem SR*) 60 Mg Capsr, 60 MG PO Q12, #60 CAP 11/06/16 Folic Acid* (Folic Acid*) 1 Mg Tablet, 1 MG PO DAILY, TAB 09/17/13 Discontinued Scripts Ondansetron Hcl* (Zofran*) 4 Mg Tablet, 4 MG PO Q6H PRN for NAUSEA AND OR VOMITING, #30 TAB Prov:HARDIN,COTY V. GEM SETTER 11/06/16 Famotidine* (Pepcid*) 20 Mg Tablet, 20 MG PO BID, #15 TAB Prov:HARDIN,COTY V. GEM SETTER 11/06/16 Medications Current Medications Lorazepam (Ativan) 0.5 mg Q6H PRN IV .ANXIETY; Start 07/22/18 at 10:30 Ondansetron HCl (Zofran Inj) 4 mg Q6H PRN IV NAUSEA/VOMITING; Start 07/22/18 at 10:30 Aspirin (Aspirin) 81 mg DAILY PO ; Start 07/23/18 at 09:00 Pantoprazole (Protonix Tab) 40 mg DAILY@06 PO ; Start 07/23/18 at 06:00 Cefepime HCl 50 ml @ 100 mls/hr Q24H IVPB ; Start 07/22/18 at 11:00 Vancomycin HCl (Vanco Iv Per Pharmacy) VANCOMYCIN PER PHARMACY PER PROTOCOL XX ; Start 07/22/18 at 10:30 Multivit/Ca Carb/ B Cmplx/FA/Prenat (Lalita-Abigail) 1 tab DAILY PO ; Start 07/23/18 at 09:00 Dopamine HCl/ Dextrose 250 ml @ 2.205 mls/ hr TITRATE IV Last administered on 07/22/18at 11:31; Admin Dose 15.435 MLS/HR; Start 07/22/18 at 11:30 Phenylephrine HCl 250 ml @ 75 mls/hr TITRATE IV ; Start 07/22/18 at 12:00 Hydrocortisone (Solu-Cortef) 200 mg Q8 IV Last administered on 07/23/18at 06:03; Admin Dose 200 MG; Start 07/22/18 at 14:00 Fentanyl 100 ml @ 5 mls/hr CONTINUOUS DRIP ONCE IV ; Start 07/22/18 at 12:30; Stop 07/23/18 at 08:29 Acetaminophen (Tylenol Supp) 650 mg Q4H PRN DC TEMP > 37C; Start 07/22/18 at 12:30 Acetaminophen (Tylenol Liquid) 650 mg Q4H PRN PO TEMP > 37C; Start 07/22/18 at 12:30 Acetaminophen (Tylenol Supp) 500 mg Q6 DC ; Start 07/23/18 at 13:30 Acetaminophen (Tylenol Liquid) 500 mg Q6 PO ; Start 07/23/18 at 13:30 Meperidine HCl (Demerol) 12.5 mg Q4H PRN IV POST OPERATIVE SHIVERING; Start 07/22/18 at 12:30 Meperidine HCl (Demerol) 25 mg Q4H PRN IV POST OPERATIVE SHIVERING; Start 07/22/18 at 12:30 Eye Lubricant (Akwa Oint) 1 applic Q6 BOTH EYES ; Start 07/22/18 at 18:00 Eye Lubricant (Artificial Tears Oph) 2 drop Q6 BOTH EYES ; Start 07/22/18 at 18:00 Norepinephrine 250 ml @ 1.875 mls/ hr TITRATE IV Last administered on 07/23/18at 01:01; Admin Dose 22.5 MLS/HR; Start 07/22/18 at 13:00 Diagnostic Test (Pha) (Accu-Chek) 1 ea Q1H XX Last administered on 07/23/18 06:06; Admin Dose 1 EA; Start 07/22/18 at 18:00 Insulin Human Regular 100 unit/ Sodium Chloride 100 ml @ 0 mls/hr PER PROTOCOL IV Last administered on 07/22/18at 20:56; Admin Dose 3 MLS/HR; Start 07/22/18 at 20:00 Miscellaneous Information (* Miscellaneous Pharmacy Order) Treatment of Hypoglycemia: 1.BG 51... Per protocol XX ; Start 07/22/18 at 18:00 Dextrose (D50w Syringe) 25 ml Q15M PRN IV .DECREASED GLUCOSE Last administered on 07/23/18at 03:06; Admin Dose 25 ML; Start 07/22/18 at 18:00 Dextrose (D50w Syringe) 50 ml Q15M PRN IV .DECREASED GLUCOSE; Start 07/22/18 at 18:00 Sodium Bicarbonate 125 meq/Dextrose 1,125 ml @ 50 mls/hr [id number] IV Last administered on 07/22/18at 20:46; Admin Dose 50 MLS/HR; Start 07/22/18 at 20:00 Docusate Sodium (Colace Liquid Cup) 100 mg BID NGT ; Start 07/22/18 at 22:00 Sodium Chloride 1,000 ml @ 50 mls/hr Q20H IV Last administered on 07/22/18at 22:30; Admin Dose 50 MLS/HR; Start 07/22/18 at 21:30; Status Hold Midazolam HCl 50 ml @ 1 mls/hr TITRATE IV Last administered on 07/22/18at 23:45; Admin Dose 4 MLS/HR; Start 07/23/18 at 02:00 Dextrose/Sodium Chloride 1,000 ml @ 70 mls/hr [id number] IV Last administered on 07/23/18at 03:02; Admin Dose 70 MLS/HR; Start 07/23/18 at 03:00 Sevelamer Carbonate (Renvela) 800 mg WITH MEALS PO ; Start 07/23/18 at 07:35 Potassium Chloride 100 ml @ 50 mls/hr Q2H IVPB Last administered on 07/23/18at 07:55; Admin Dose 50 MLS/HR; Start 07/23/18 at 07:30; Stop 07/23/18 at 11:29 Allergies: Coded Allergies: ciprofloxacin (Unverified Allergy, Severe, 07/22/18) heparin (Unverified Allergy, Severe, 07/22/18) levofloxacin (Unverified Allergy, Severe, 07/22/18) acetaminophen (Unverified Allergy, Mild, 07/22/18) potassium (Unverified Allergy, Unknown, 07/22/18) Uncoded Allergies: TAPE (Allergy, Mild, 11/06/16) Past Surgical History Past Surgical Hx: other (Including but not limited to pacemaker, dialysis graft) Social History Alcohol Use: none Smoking Status: Never smoker Exam/Review of Systems Exam Vitals Vital Signs Date Temp Pulse Resp B/P (MAP) Pulse Ox O2 O2 Flow FiO2 Time Delivery Rate 07/23/18 60 16 90/72 (78) 100 06:30 07/23/18 Mechanical 06:00 Ventilator 07/23/18 30 05:15 07/23/18 97.9 04:00 07/22/18 2.0 10:00 Intake and Output 07/22/18 07/22/18 07/23/18 1515:00 23:00 07:00 IntakeIntake Total 597.25 ml 475.75 ml OutputOutput Total 200 ml 400 ml BalanceBalance 397.25 ml 75.75 ml Exam HEENT exam; supple neck, positive JVD. No lymphadenopathy. Midline trachea. No thyromegaly. Orally intubated. Patient has fair dentition. No neck masses. Chest exam; diminished but clear breath sounds. S1-S2 audible, no murmurs. Regular rhythm. There is a pacemaker in left chest wall. Abdomen exam; scaphoid. No organomegaly. Nondistended. Bowel sounds are sluggish. Extremity exam; trace peripheral edema. RFID STRATEGIST exam; patient is sedated. Results Result Diagram: 07/23/18 0500 07/23/18 0500 Results 24hrs Laboratory Tests Test 07/22/18 08:24 07/22/18 09:21 07/22/18 10:09 07/22/18 11:05 Bedside Glucose 196 235 H POC Venous 9.1 *H Lactate Lactic Acid 12.1 *H Level Creatine Kinase 309 H Creatine Kinase 3.2 Index Creatinine 10.00 H Kinase MB (Mass) Troponin I 0.128 *H Test 07/22/18 15:22 07/22/18 15:33 07/22/18 18:26 07/22/18 18:49 Sodium Level 139 Potassium Level 3.7 Chloride Level 100 Carbon Dioxide 7 #*L Level Anion Gap 32 H Blood Urea 56 H Nitrogen Creatinine 6.09 H Est Glomerular 8 L Filtrat Rate mL/min Glucose Level 494 #*H Calcium Level 8.1 L Phosphorus Level 6.9 H Magnesium Level 2.8 H Creatine Kinase 286 H Creatine Kinase 4.6 Index Creatinine 13.20 H Kinase MB (Mass) Troponin I 0.190 *H Bedside Glucose 490 *H Blood Gas Blood arterial Specimen Source Arterial Blood 07/22/2018 5:48: Date Drawn 06 PM Arterial Blood 6.838 *L pH (Temp corrected) Arterial Blood 29.8 L pCO2 (Temp correct) Arterial Blood 216.0 H pO2 (Temp corrected) Arterial Blood 4.9 *L HCO3 Arterial Blood -27.7 L Base Excess Arterial Blood 98.6 H Oxygen Saturatio n Newton Test N/A Arterial Blood A-Line Gas Puncture Site Arterial 0.3 Blood Carboxyhem oglobin Arterial Blood 0.7 Methemoglobin Blood Gas A-a O2 107.0 H Differential Oxyhemoglobin 97.6 Percent Blood Gas 37.0 Temperature Blood Gas 16.0 Respiration Rate Blood Gas Actual 18 Respiration Rate Blood Gas VENT - AC Modality FiO2 50.0 Blood Gas Tidal 400.0 Volume Blood Gas Low 5.0 PEEP Setting Blood Gas JUNI MONREAL Critical Value Read Back Blood Gas AT Notified Whom Blood Gas 07/22/2018 6:01: Notified Time 32 PM White Blood 18.4 #H Count Red Blood Count 2.30 L Hemoglobin 8.5 L Hematocrit 28.7 L Mean Corpuscular 124.8 H Volume Mean Corpuscular 37.0 H Hemoglobin Mean Corpuscular 29.6 L Hemoglobin Isadora nt Red Cell 24.2 H Distribution Width Platelet Count 59 L Mean Platelet 12.8 H Volume Immature 1.500 H Granulocytes % Neutrophils % Segmented 81 H Neutrophils % (Manual) Band Neutrophils 7 H % (Manual) Lymphocytes % Lymphocytes % 10 L (Manual) Monocytes % Monocytes % 2 (Manual) Eosinophils % Basophils % Nucleated Red 1 H Blood Cells % Immature 0.270 H Granulocytes # Neutrophils # Neutrophils # 15.1 H (Manual) Band Neutrophils 1.2 H # Lymphocytes 1.8 (Manual) Lymphocytes # Monocytes # Monocytes # 0.3 (Manual) Eosinophils # Basophils # Nucleated Red Blood Cells # Platelet DECREASED Estimate Poikilocytosis 2+ Anisocytosis 2+ Macrocytosis 2+ Test 07/22/18 18:50 07/22/18 20:53 07/22/18 22:01 07/22/18 23:06 Sodium Level 142 Potassium Level 3.7 Chloride Level 103 Carbon Dioxide 7 *L Level Anion Gap 32 H Blood Urea 54 H Nitrogen Creatinine 6.26 H Est Glomerular 8 L Filtrat Rate mL/min Glucose Level 314 #H Lactic Acid 15.6 *H Level Calcium Level 7.7 L Phosphorus Level 7.3 H Magnesium Level 2.9 H Bedside Glucose 256 H 196 146 Test 07/23/18 00:09 07/23/18 01:25 07/23/18 02:05 07/23/18 03:04 Bedside Glucose 104 87 71 63 L Test 07/23/18 03:21 07/23/18 03:36 07/23/18 04:08 07/23/18 04:59 Bedside Glucose 194 143 146 185 Test 07/23/18 05:00 07/23/18 05:53 07/23/18 07:28 White Blood 13.6 #H Count Red Blood Count 1.81 #L Hemoglobin 6.9 *L Hematocrit 20.9 #L Mean Corpuscular 115.5 H Volume Mean Corpuscular 38.1 H Hemoglobin Mean Corpuscular 33.0 Hemoglobin Isadora nt Red Cell 23.6 H Distribution Width Platelet Count 26 #*L Mean Platelet 13.2 H Volume Immature 0.600 H Granulocytes % Neutrophils % Lymphocytes % Monocytes % Eosinophils % Basophils % Nucleated Red 1.0 H Blood Cells % Immature 0.080 H Granulocytes # Neutrophils # Lymphocytes # Monocytes # Eosinophils # Basophils # Nucleated Red Blood Cells # Blood Gas Blood arterial Specimen Source Arterial Blood 07/23/2018 4:50: Date Drawn 38 AM Arterial Blood 7.365 pH (Temp corrected) Arterial Blood 28.0 L pCO2 (Temp correct) Arterial Blood 189.1 H pO2 (Temp corrected) Arterial Blood 15.6 L HCO3 Arterial Blood -8.7 L Base Excess Arterial Blood 99.3 H Oxygen Saturatio n Newton Test N/A Arterial Blood A-Line Gas Puncture Site Arterial 0.4 Blood Carboxyhem oglobin Arterial Blood 0.4 Methemoglobin Blood Gas A-a O2 63.9 H Differential Oxyhemoglobin 98.5 Percent Blood Gas 37.0 Temperature Blood Gas 16.0 Respiration Rate Blood Gas Actual 16 Respiration Rate Blood Gas VENT - AC Modality FiO2 40.0 Blood Gas Tidal 400.0 Volume Blood Gas Low 5.0 PEEP Setting Blood Gas 39.0 Inspiratory Pressure Blood Gas MR Notified Whom Blood Gas 07/23/2018 4:59: Notified Time 41 AM Sodium Level 144 Potassium Level 2.9 *L Chloride Level 101 Carbon Dioxide 16 L Level Anion Gap 27 H Blood Urea 22 #H Nitrogen Creatinine 2.53 #H Est Glomerular 23 L Filtrat Rate mL/min Glucose Level 129 # Lactic Acid 15.5 *H Level Calcium Level 8.1 L Magnesium Level 2.0 Iron Level 154 H Total Iron 169 L Binding Capacity Percent Iron 91 H Saturation Total Bilirubin 8.4 H Direct Bilirubin 6.10 H Indirect 2.3 H Bilirubin Aspartate Amino 1196 H Transf (AST/SGOT ) Alanine 354 H Aminotransferase (ALT/SGPT) Alkaline 102 Phosphatase Total Protein 6.7 # Albumin 3.8 Globulin 2.90 Albumin/Globulin 1.31 Ratio Triglycerides 87 Level Cholesterol 54 L Level LDL Cholesterol, 20 Calculated HDL Cholesterol 17 L Cholesterol/HDL 3.1 Ratio Vitamin B12 > 1000 H Level Folate > 20.0 H Bedside Glucose 108 94 Medications Medication Current Medications Lorazepam (Ativan) 0.5 mg Q6H PRN IV .ANXIETY; Start 07/22/18 at 10:30 Ondansetron HCl (Zofran Inj) 4 mg Q6H PRN IV NAUSEA/VOMITING; Start 07/22/18 at 10:30 Aspirin (Aspirin) 81 mg DAILY PO ; Start 07/23/18 at 09:00 Pantoprazole (Protonix Tab) 40 mg DAILY@06 PO ; Start 07/23/18 at 06:00 Cefepime HCl 50 ml @ 100 mls/hr Q24H IVPB ; Start 07/22/18 at 11:00 Vancomycin HCl (Vanco Iv Per Pharmacy) VANCOMYCIN PER PHARMACY PER PROTOCOL XX ; Start 07/22/18 at 10:30 Multivit/Ca Carb/ B Cmplx/FA/Prenat (Lalita-Abigail) 1 tab DAILY PO ; Start 07/23/18 at 09:00 Dopamine HCl/ Dextrose 250 ml @ 2.205 mls/ hr TITRATE IV Last administered on 07/22/18at 11:31; Admin Dose 15.435 MLS/HR; Start 07/22/18 at 11:30 Phenylephrine HCl 250 ml @ 75 mls/hr TITRATE IV ; Start 07/22/18 at 12:00 Hydrocortisone (Solu-Cortef) 200 mg Q8 IV Last administered on 07/23/18at 06:03; Admin Dose 200 MG; Start 07/22/18 at 14:00 Fentanyl 100 ml @ 5 mls/hr CONTINUOUS DRIP ONCE IV ; Start 07/22/18 at 12:30; Stop 07/23/18 at 08:29 Acetaminophen (Tylenol Supp) 650 mg Q4H PRN DC TEMP > 37C; Start 07/22/18 at 12:30 Acetaminophen (Tylenol Liquid) 650 mg Q4H PRN PO TEMP > 37C; Start 07/22/18 at 12:30 Acetaminophen (Tylenol Supp) 500 mg Q6 DC ; Start 07/23/18 at 13:30 Acetaminophen (Tylenol Liquid) 500 mg Q6 PO ; Start 07/23/18 at 13:30 Meperidine HCl (Demerol) 12.5 mg Q4H PRN IV POST OPERATIVE SHIVERING; Start 07/22/18 at 12:30 Meperidine HCl (Demerol) 25 mg Q4H PRN IV POST OPERATIVE SHIVERING; Start 07/22/18 at 12:30 Eye Lubricant (Akwa Oint) 1 applic Q6 BOTH EYES ; Start 07/22/18 at 18:00 Eye Lubricant (Artificial Tears Oph) 2 drop Q6 BOTH EYES ; Start 07/22/18 at 18:00 Norepinephrine 250 ml @ 1.875 mls/ hr TITRATE IV Last administered on 07/23/18at 01:01; Admin Dose 22.5 MLS/HR; Start 07/22/18 at 13:00 Diagnostic Test (Pha) (Accu-Chek) 1 ea Q1H XX Last administered on 07/23/18 06:06; Admin Dose 1 EA; Start 07/22/18 at 18:00 Insulin Human Regular 100 unit/ Sodium Chloride 100 ml @ 0 mls/hr PER PROTOCOL IV Last administered on 07/22/18at 20:56; Admin Dose 3 MLS/HR; Start 07/22/18 at 20:00 Miscellaneous Information (* Miscellaneous Pharmacy Order) Treatment of Hypoglycemia: 1.BG 51... Per protocol XX ; Start 07/22/18 at 18:00 Dextrose (D50w Syringe) 25 ml Q15M PRN IV .DECREASED GLUCOSE Last administered on 07/23/18 03:06; Admin Dose 25 ML; Start 07/22/18 at 18:00 Dextrose (D50w Syringe) 50 ml Q15M PRN IV .DECREASED GLUCOSE; Start 07/22/18 at 18:00 Sodium Bicarbonate 125 meq/Dextrose 1,125 ml @ 50 mls/hr [id number] IV Last administered on 07/22/18at 20:46; Admin Dose 50 MLS/HR; Start 07/22/18 at 20:00 Docusate Sodium (Colace Liquid Cup) 100 mg BID NGT ; Start 07/22/18 at 22:00 Sodium Chloride 1,000 ml @ 50 mls/hr Q20H IV Last administered on 07/22/18at 22:30; Admin Dose 50 MLS/HR; Start 07/22/18 at 21:30; Status Hold Midazolam HCl 50 ml @ 1 mls/hr TITRATE IV Last administered on 07/22/18at 23:45; Admin Dose 4 MLS/HR; Start 07/23/18 at 02:00 Dextrose/Sodium Chloride 1,000 ml @ 70 mls/hr [id number] IV Last administered on 07/23/18 03:02; Admin Dose 70 MLS/HR; Start 07/23/18 at 03:00 Sevelamer Carbonate (Renvela) 800 mg WITH MEALS PO ; Start 07/23/18 at 07:35 Potassium Chloride 100 ml @ 50 mls/hr Q2H IVPB Last administered on 07/23/18at 07:55; Admin Dose 50 MLS/HR; Start 07/23/18 at 07:30; Stop 07/23/18 at 11:29 AYSE CAMARGO July 23, 2018 08:28
--- NOTE | 2018-07-23 08:47 | CONS ---
Assessment/Plan Assessment/Plan Assessment/Plan (Daily) 27-year-old female who presented with: 1. Status post code blue, unresponsive, could be secondary to cardiac in origin/rule out embolic infarct to the brain/hypoglycemia/septic shock. 2. Septic shock with history of endocarditis, source questionable. This patient had a pacemaker in the chest and also has AV graft. bld cx pending so far[facility]. Severe anion gap acidosis secondary to hypovolemia/ septic shock with lactic acidosis, now ABG improved 4 Respiratory failure s/p intubation 4. End-stage renal disease on hemodialysis secondary to right kidney atrophy, chronic tubulointerstitial nephritis. spoke to Dr Lake 5. Elevated troponin, likely secondary to acute coronary syndrome./ demand 6. Chronic atrial fibrillation. 7. Cardiomyopathy, status post pacemaker. 8. Chronic thrombocytopenia. with acute plt drop 9. Chronic megaloblastic anemia. 10. Abnormal LFTs with elevated bilirubin level.? hemolysis 11. Leukocytosis. 12. Anemia, megaloblastic with acute drop r/o hemolysis 13 Hypokalemia likely due to bicarb gtt/insulin gtt 14 hx retinitis pigmentosa with blindness Plan - overall pt condition improved > only on 1 pressor> titrating off - Assess neuro status off sedation - s/p stat HD yesterday due to acidosis> bicarb improved and abg with compensated PH, will hold off HD today especially due to hypokalemia - ? nutrition per primary/ pul - replete K , recheck - 1 unit PRBC - Recommend heme consult, hold off ASA - Recheck labs and ABG - chest xray - r/o hemolysis/DIC panel - fu cx from [facility] - d5 1/2 NS at 70 - cw vanco/cefepime - renally dose all meds - avoid bp/blood draws in RUE - gi/dvt prophylaxsis Consultation Date/Type/Reason Admit Date/Time July 22, 2018 at 09:09 Initial Consult Date Date/Time of Note DATE: 07/23/18 TIME: 08:27 24 HR Interval Summary Free Text/Dictation Patient had an uneventful course last night. Patient had a line placed was on 3 pressors initially then was titrated to 1 pressor Patient had metabolic acidosis on ABG received rwith marked lactic acidosis and had emergent hemodialysis last night due to acidosis, now bicarb 16 Patient was started on bicarb drip before and also on insulin drip which are off Currently patient is off sedation , is moving all extremities Only on 2 mics of Levophed, OFF insulin gtt FiO2 30% Hemoglobin dropped to 6.9 and platelet count also dropped to 26 Exam/Review of Systems Exam Vitals Vital Signs Date Temp Pulse Resp B/P (MAP) Pulse Ox O2 O2 Flow FiO2 Time Delivery Rate 07/23/18 60 16 90/72 (78) 100 06:30 07/23/18 Mechanical 06:00 Ventilator 07/23/18 30 05:15 07/23/18 97.9 04:00 07/22/18 2.0 10:00 Intake and Output 07/22/18 07/22/18 07/23/18 1515:00 23:00 07:00 IntakeIntake Total 597.25 ml 475.75 ml OutputOutput Total 200 ml 400 ml BalanceBalance 397.25 ml 75.75 ml Exam GENERAL: The patient is intubated, moving all extremities off sedation HEENT: Pupils are sluggish to respond bilaterally. HEART: Regular rate rhythm LUNGS: dec breath sounds b/l ABDOMEN: Soft, nontender, distended EXTREMITIES: Thin extremities. The patient has a right AV graft present with bruit and thrill. The patient also has a left pacemaker. Results Result Diagram: 07/23/18 0500 07/23/18 0500 Results 24hrs Laboratory Tests Test 07/22/18 09:21 07/22/18 10:09 07/22/18 11:05 07/22/18 15:22 POC Venous 9.1 *H Lactate Lactic Acid 12.1 *H Level Creatine Kinase 309 H 286 H Creatine Kinase 3.2 4.6 Index Creatinine 10.00 H 13.20 H Kinase MB (Mass) Troponin I 0.128 *H 0.190 *H Bedside Glucose 235 H Sodium Level 139 Potassium Level 3.7 Chloride Level 100 Carbon Dioxide 7 #*L Level Anion Gap 32 H Blood Urea 56 H Nitrogen Creatinine 6.09 H Est Glomerular 8 L Filtrat Rate mL/min Glucose Level 494 #*H Calcium Level 8.1 L Phosphorus Level 6.9 H Magnesium Level 2.8 H Test 07/22/18 15:33 07/22/18 18:26 07/22/18 18:49 07/22/18 18:50 Bedside Glucose 490 *H Blood Gas Blood arterial Specimen Source Arterial Blood 07/22/2018 5:48: Date Drawn 06 PM Arterial Blood 6.838 *L pH (Temp corrected) Arterial Blood 29.8 L pCO2 (Temp correct) Arterial Blood 216.0 H pO2 (Temp corrected) Arterial Blood 4.9 *L HCO3 Arterial Blood -27.7 L Base Excess Arterial Blood 98.6 H Oxygen Saturatio n [place] Test N/A Arterial Blood A-Line Gas Puncture Site Arterial 0.3 Blood Carboxyhem oglobin Arterial Blood 0.7 Methemoglobin Blood Gas A-a O2 107.0 H Differential Oxyhemoglobin 97.6 Percent Blood Gas 37.0 Temperature Blood Gas 16.0 Respiration Rate Blood Gas Actual 18 Respiration Rate Blood Gas VENT - AC Modality FiO2 50.0 Blood Gas Tidal 400.0 Volume Blood Gas Low 5.0 PEEP Setting Blood Gas JUNI MONREAL Critical Value Read Back Blood Gas AT Notified Whom Blood Gas 07/22/2018 6:01: Notified Time 32 PM White Blood 18.4 #H Count Red Blood Count 2.30 L Hemoglobin 8.5 L Hematocrit 28.7 L Mean Corpuscular 124.8 H Volume Mean Corpuscular 37.0 H Hemoglobin Mean Corpuscular 29.6 L Hemoglobin Isadora nt Red Cell 24.2 H Distribution Width Platelet Count 59 L Mean Platelet 12.8 H Volume Immature 1.500 H Granulocytes % Neutrophils % Segmented 81 H Neutrophils % (Manual) Band Neutrophils 7 H % (Manual) Lymphocytes % Lymphocytes % 10 L (Manual) Monocytes % Monocytes % 2 (Manual) Eosinophils % Basophils % Nucleated Red 1 H Blood Cells % Immature 0.270 H Granulocytes # Neutrophils # Neutrophils # 15.1 H (Manual) Band Neutrophils 1.2 H # Lymphocytes 1.8 (Manual) Lymphocytes # Monocytes # Monocytes # 0.3 (Manual) Eosinophils # Basophils # Nucleated Red Blood Cells # Platelet DECREASED Estimate Poikilocytosis 2+ Anisocytosis 2+ Macrocytosis 2+ Sodium Level 142 Potassium Level 3.7 Chloride Level 103 Carbon Dioxide 7 *L Level Anion Gap 32 H Blood Urea 54 H Nitrogen Creatinine 6.26 H Est Glomerular 8 L Filtrat Rate mL/min Glucose Level 314 #H Lactic Acid 15.6 *H Level Calcium Level 7.7 L Phosphorus Level 7.3 H Magnesium Level 2.9 H Test 07/22/18 20:53 07/22/18 22:01 07/22/18 23:06 07/23/18 00:09 Bedside Glucose 256 H 196 146 104 Test 07/23/18 01:25 07/23/18 02:05 07/23/18 03:04 07/23/18 03:21 Bedside Glucose 87 71 63 L 194 Test 07/23/18 03:36 07/23/18 04:08 07/23/18 04:59 07/23/18 05:00 Bedside Glucose 143 146 185 White Blood 13.6 #H Count Red Blood Count 1.81 #L Hemoglobin 6.9 *L Hematocrit 20.9 #L Mean Corpuscular 115.5 H Volume Mean Corpuscular 38.1 H Hemoglobin Mean Corpuscular 33.0 Hemoglobin Isadora nt Red Cell 23.6 H Distribution Width Platelet Count 26 #*L Mean Platelet 13.2 H Volume Immature 0.600 H Granulocytes % Neutrophils % Lymphocytes % Monocytes % Eosinophils % Basophils % Nucleated Red 1.0 H Blood Cells % Immature 0.080 H Granulocytes # Neutrophils # Lymphocytes # Monocytes # Eosinophils # Basophils # Nucleated Red Blood Cells # Blood Gas Blood arterial Specimen Source Arterial Blood 07/23/2018 4:50: Date Drawn 38 AM Arterial Blood 7.365 pH (Temp corrected) Arterial Blood 28.0 L pCO2 (Temp correct) Arterial Blood 189.1 H pO2 (Temp corrected) Arterial Blood 15.6 L HCO3 Arterial Blood -8.7 L Base Excess Arterial Blood 99.3 H Oxygen Saturatio n [place] Test N/A Arterial Blood A-Line Gas Puncture Site Arterial 0.4 Blood Carboxyhem oglobin Arterial Blood 0.4 Methemoglobin Blood Gas A-a O2 63.9 H Differential Oxyhemoglobin 98.5 Percent Blood Gas 37.0 Temperature Blood Gas 16.0 Respiration Rate Blood Gas Actual 16 Respiration Rate Blood Gas VENT - AC Modality FiO2 40.0 Blood Gas Tidal 400.0 Volume Blood Gas Low 5.0 PEEP Setting Blood Gas 39.0 Inspiratory Pressure Blood Gas MR Notified Whom Blood Gas 07/23/2018 4:59: Notified Time 41 AM Sodium Level 144 Potassium Level 2.9 *L Chloride Level 101 Carbon Dioxide 16 L Level Anion Gap 27 H Blood Urea 22 #H Nitrogen Creatinine 2.53 #H Est Glomerular 23 L Filtrat Rate mL/min Glucose Level 129 # Lactic Acid 15.5 *H Level Calcium Level 8.1 L Magnesium Level 2.0 Iron Level 154 H Total Iron 169 L Binding Capacity Percent Iron 91 H Saturation Total Bilirubin 8.4 H Direct Bilirubin 6.10 H Indirect 2.3 H Bilirubin Aspartate Amino 1196 H Transf (AST/SGOT ) Alanine 354 H Aminotransferase (ALT/SGPT) Alkaline 102 Phosphatase Total Protein 6.7 # Albumin 3.8 Globulin 2.90 Albumin/Globulin 1.31 Ratio Triglycerides 87 Level Cholesterol 54 L Level LDL Cholesterol, 20 Calculated HDL Cholesterol 17 L Cholesterol/HDL 3.1 Ratio Vitamin B12 > 1000 H Level Folate > 20.0 H Test 07/23/18 05:53 07/23/18 07:28 07/23/18 08:23 Bedside Glucose 108 94 77 Medications Medication Current Medications Lorazepam (Ativan) 0.5 mg Q6H PRN IV .ANXIETY; Start 07/22/18 at 10:30 Ondansetron HCl (Zofran Inj) 4 mg Q6H PRN IV NAUSEA/VOMITING; Start 07/22/18 at 10:30 Aspirin (Aspirin) 81 mg DAILY PO ; Start 07/23/18 at 09:00 Pantoprazole (Protonix Tab) 40 mg DAILY@06 PO ; Start 07/23/18 at 06:00 Cefepime HCl 50 ml @ 100 mls/hr Q24H IVPB ; Start 07/22/18 at 11:00 Vancomycin HCl (Vanco Iv Per Pharmacy) VANCOMYCIN PER PHARMACY PER PROTOCOL XX ; Start 07/22/18 at 10:30 Multivit/Ca Carb/ B Cmplx/FA/Prenat (Lalita-Abigail) 1 tab DAILY PO ; Start 07/23/18 at 09:00 Dopamine HCl/ Dextrose 250 ml @ 2.205 mls/ hr TITRATE IV Last administered on 07/22/18at 11:31; Admin Dose 15.435 MLS/HR; Start 07/22/18 at 11:30 Phenylephrine HCl 250 ml @ 75 mls/hr TITRATE IV ; Start 07/22/18 at 12:00 Hydrocortisone (Solu-Cortef) 200 mg Q8 IV Last administered on 07/23/18at 06:03; Admin Dose 200 MG; Start 07/22/18 at 14:00 Fentanyl 100 ml @ 5 mls/hr CONTINUOUS DRIP ONCE IV ; Start 07/22/18 at 12:30; Stop 07/23/18 at 08:29 Acetaminophen (Tylenol Supp) 650 mg Q4H PRN DC TEMP > 37C; Start 07/22/18 at 12:30 Acetaminophen (Tylenol Liquid) 650 mg Q4H PRN PO TEMP > 37C; Start 07/22/18 at 12:30 Acetaminophen (Tylenol Supp) 500 mg Q6 DC ; Start 07/23/18 at 13:30 Acetaminophen (Tylenol Liquid) 500 mg Q6 PO ; Start 07/23/18 at 13:30 Meperidine HCl (Demerol) 12.5 mg Q4H PRN IV POST OPERATIVE SHIVERING; Start 07/22/18 at 12:30 Meperidine HCl (Demerol) 25 mg Q4H PRN IV POST OPERATIVE SHIVERING; Start 07/22/18 at 12:30 Eye Lubricant (Akwa Oint) 1 applic Q6 BOTH EYES ; Start 07/22/18 at 18:00 Eye Lubricant (Artificial Tears Oph) 2 drop Q6 BOTH EYES ; Start 07/22/18 at 18:00 Norepinephrine 250 ml @ 1.875 mls/ hr TITRATE IV Last administered on 07/23/18at 01:01; Admin Dose 22.5 MLS/HR; Start 07/22/18 at 13:00 Diagnostic Test (Pha) (Accu-Chek) 1 ea Q1H XX Last administered on 07/23/18at 06:06; Admin Dose 1 EA; Start 07/22/18 at 18:00 Insulin Human Regular 100 unit/ Sodium Chloride 100 ml @ 0 mls/hr PER PROTOCOL IV Last administered on 07/22/18at 20:56; Admin Dose 3 MLS/HR; Start 07/22/18 at 20:00 Miscellaneous Information (* Miscellaneous Pharmacy Order) Treatment of Hypoglycemia: 1.BG 51... Per protocol XX ; Start 07/22/18 at 18:00 Dextrose (D50w Syringe) 25 ml Q15M PRN IV .DECREASED GLUCOSE Last administered on 07/23/18at 03:06; Admin Dose 25 ML; Start 07/22/18 at 18:00 Dextrose (D50w Syringe) 50 ml Q15M PRN IV .DECREASED GLUCOSE; Start 07/22/18 at 18:00 Sodium Bicarbonate 125 meq/Dextrose 1,125 ml @ 50 mls/hr [id number] IV Last administered on 07/22/18at 20:46; Admin Dose 50 MLS/HR; Start 07/22/18 at 20:00 Docusate Sodium (Colace Liquid Cup) 100 mg BID NGT ; Start 07/22/18 at 22:00 Sodium Chloride 1,000 ml @ 50 mls/hr Q20H IV Last administered on 07/22/18at 22:30; Admin Dose 50 MLS/HR; Start 07/22/18 at 21:30; Status Hold Midazolam HCl 50 ml @ 1 mls/hr TITRATE IV Last administered on 07/22/18at 23:45; Admin Dose 4 MLS/HR; Start 07/23/18 at 02:00 Dextrose/Sodium Chloride 1,000 ml @ 70 mls/hr [id number] IV Last administered on 07/23/18at 03:02; Admin Dose 70 MLS/HR; Start 07/23/18 at 03:00 Sevelamer Carbonate (Renvela) 800 mg WITH MEALS PO ; Start 07/23/18 at 07:35 Potassium Chloride 100 ml @ 50 mls/hr Q2H IVPB Last administered on 07/23/18at 07:55; Admin Dose 50 MLS/HR; Start 07/23/18 at 07:30; Stop 07/23/18 at 11:29 GIOVANNA TSANG MD July 23, 2018 08:37
[2018-07-23] MEDS ORDERED: ASPIRIN 81 MG TAB PO SCH (09:00)
[2018-07-23] MEDS ORDERED: PANTOPRAZOLE 40 MG INJ IV ONE (09:00)
[2018-07-23] MEDS ORDERED: LANSOPRAZOLE 30 MG CAP NGT SCH (09:00)
[2018-07-23] MEDS: DOCUSATE SODIUM 10 MG/ML (10ML CUP) NGT SCH ×2 (10:31→22:05)
[2018-07-23] MEDS: MULTIVIT/CA CARB/B CMPLX/FA TAB PO SCH (10:31)
[2018-07-23] MEDS: CEFEPIME 1GM/50 ML (PMX) 50 ML IVPB SCH (10:50)
[2018-07-23] MEDS: FAMOTIDINE 20 MG TAB NGT SCH (11:42)
--- NOTE | 2018-07-23 11:57 | CONS ---
Assessment/Plan Assessment/Plan Hospital Course (Demo Recall) Severe shock-improving Likely sepsis Cardiomyopathy End-stage renal disease on hemodialysis PEA cardiac arrest Respiratory failure status post intubation Mildly elevated troponin Acidosis, improving Acute blood loss anemia Thrombocytopenia -Patient has been weaned off IV pressors this morning. Close monitoring of blood pressure and maintain a line at the current time -We will continue to hold all antihypertensives -Antibiotics as per infectious disease, ID work-up. As per family, patient with recent bacteremia at outside facility and etiology was unclear. -Aspirin stopped secondary to worsening anemia and thrombocytopenia -Fluid management and electrolytes as per nephrology -Pulmonary for vent management -Greater than 33 minutes of critical care time taken in the care of this patient Consultation Date/Type/Reason Admit Date/Time July 22, 2018 at 09:09 Initial Consult Date 07/23/18 Type of Consult Cardiology Date/Time of Note DATE: 07/23/18 TIME: 11:51 24 HR Interval Summary Free Text/Dictation Patient has been weaned off IV pressor this morning. With holding sedation, patient opening her eyes and following commands as per family and nurse at bedside. Exam/Review of Systems Vital Signs Vitals Vital Signs Date Temp Pulse Resp B/P (MAP) Pulse Ox O2 O2 Flow FiO2 Time Delivery Rate 07/23/18 60 15 91/57 (68) 100 Mechanical 11:00 Ventilator 07/23/18 98.4 08:00 07/23/18 40 08:00 07/22/18 2.0 10:00 Intake and Output 07/22/18 07/22/18 07/23/18 1515:00 23:00 07:00 IntakeIntake Total 597.25 ml 545.75 ml OutputOutput Total 200 ml 400 ml BalanceBalance 397.25 ml 145.75 ml Exam Exam Intubated and sedated, no apparent distress, family and nurse at bedside Head: normocephalic ENMT: intubated Respiratory: other (Coarse breath sounds bilaterally, no wheezing, decreased breath sounds at the bases) Cardiovascular: regular rate and rhythm (Intermittent irregularities, S1-S2 heard), systolic murmur Gastrointestinal: soft, bowel sounds, other (No grimacing with palpation, sligh tly distended) Extremities: other (No significant edema, radial arterial line left wrist with no erythema) Neurological: other (Currently sedated) Labs Result Diagram: 07/23/18 0500 07/23/18 0500 Results 24hrs Laboratory Tests Test 07/22/18 15:22 07/22/18 15:33 07/22/18 18:26 07/22/18 18:49 Sodium Level 139 Potassium Level 3.7 Chloride Level 100 Carbon Dioxide 7 #*L Level Anion Gap 32 H Blood Urea 56 H Nitrogen Creatinine 6.09 H Est Glomerular 8 L Filtrat Rate mL/min Glucose Level 494 #*H Calcium Level 8.1 L Phosphorus Level 6.9 H Magnesium Level 2.8 H Creatine Kinase 286 H Creatine Kinase 4.6 Index Creatinine 13.20 H Kinase MB (Mass) Troponin I 0.190 *H Bedside Glucose 490 *H Blood Gas Blood arterial Specimen Source Arterial Blood 07/22/2018 5:48: Date Drawn 06 PM Arterial Blood 6.838 *L pH (Temp corrected) Arterial Blood 29.8 L pCO2 (Temp correct) Arterial Blood 216.0 H pO2 (Temp corrected) Arterial Blood 4.9 *L HCO3 Arterial Blood -27.7 L Base Excess Arterial Blood 98.6 H Oxygen Saturatio n [place] Test N/A Arterial Blood A-Line Gas Puncture Site Arterial 0.3 Blood Carboxyhem oglobin Arterial Blood 0.7 Methemoglobin Blood Gas A-a O2 107.0 H Differential Oxyhemoglobin 97.6 Percent Blood Gas 37.0 Temperature Blood Gas 16.0 Respiration Rate Blood Gas Actual 18 Respiration Rate Blood Gas VENT - AC Modality FiO2 50.0 Blood Gas Tidal 400.0 Volume Blood Gas Low 5.0 PEEP Setting Blood Gas JUNI MONREAL Critical Value Read Back Blood Gas AT Notified Whom Blood Gas 07/22/2018 6:01: Notified Time 32 PM White Blood 18.4 #H Count Red Blood Count 2.30 L Hemoglobin 8.5 L Hematocrit 28.7 L Mean Corpuscular 124.8 H Volume Mean Corpuscular 37.0 H Hemoglobin Mean Corpuscular 29.6 L Hemoglobin Isadora nt Red Cell 24.2 H Distribution Width Platelet Count 59 L Mean Platelet 12.8 H Volume Immature 1.500 H Granulocytes % Neutrophils % Segmented 81 H Neutrophils % (Manual) Band Neutrophils 7 H % (Manual) Lymphocytes % Lymphocytes % 10 L (Manual) Monocytes % Monocytes % 2 (Manual) Eosinophils % Basophils % Nucleated Red 1 H Blood Cells % Immature 0.270 H Granulocytes # Neutrophils # Neutrophils # 15.1 H (Manual) Band Neutrophils 1.2 H # Lymphocytes 1.8 (Manual) Lymphocytes # Monocytes # Monocytes # 0.3 (Manual) Eosinophils # Basophils # Nucleated Red Blood Cells # Platelet DECREASED Estimate Poikilocytosis 2+ Anisocytosis 2+ Macrocytosis 2+ Test 07/22/18 18:50 07/22/18 20:53 07/22/18 22:01 07/22/18 23:06 Sodium Level 142 Potassium Level 3.7 Chloride Level 103 Carbon Dioxide 7 *L Level Anion Gap 32 H Blood Urea 54 H Nitrogen Creatinine 6.26 H Est Glomerular 8 L Filtrat Rate mL/min Glucose Level 314 #H Lactic Acid 15.6 *H Level Calcium Level 7.7 L Phosphorus Level 7.3 H Magnesium Level 2.9 H Bedside Glucose 256 H 196 146 Test 07/23/18 00:09 07/23/18 01:25 07/23/18 02:05 07/23/18 03:04 Bedside Glucose 104 87 71 63 L Test 07/23/18 03:21 07/23/18 03:36 07/23/18 04:08 07/23/18 04:59 Bedside Glucose 194 143 146 185 Test 07/23/18 05:00 07/23/18 05:53 07/23/18 07:28 07/23/18 08:23 White Blood 13.6 #H Count Red Blood Count 1.81 #L Hemoglobin 6.9 *L Hematocrit 20.9 #L Mean Corpuscular 115.5 H Volume Mean Corpuscular 38.1 H Hemoglobin Mean Corpuscular 33.0 Hemoglobin Isadora nt Red Cell 23.6 H Distribution Width Platelet Count 26 #*L Mean Platelet 13.2 H Volume Immature 0.600 H Granulocytes % Neutrophils % Segmented 65 Neutrophils % (Manual) Band Neutrophils 19 H % (Manual) Lymphocytes % Lymphocytes % 10 L (Manual) Monocytes % Monocytes % 6 (Manual) Eosinophils % Basophils % Nucleated Red 2 H Blood Cells % Immature 0.080 H Granulocytes # Neutrophils # Neutrophils # 9.2 H (Manual) Band Neutrophils 2.5 H # Lymphocytes 1.3 (Manual) Lymphocytes # Monocytes # Monocytes # 0.8 (Manual) Eosinophils # Basophils # Nucleated Red Blood Cells # Platelet NORMAL Estimate Polychromasia 1+ Anisocytosis 3+ Macrocytosis 3+ Spherocytes 1+ Target Cells 1+ Blood Gas Blood arterial Specimen Source Arterial Blood 07/23/2018 4:50: Date Drawn 38 AM Arterial Blood 7.365 pH (Temp corrected) Arterial Blood 28.0 L pCO2 (Temp correct) Arterial Blood 189.1 H pO2 (Temp corrected) Arterial Blood 15.6 L HCO3 Arterial Blood -8.7 L Base Excess Arterial Blood 99.3 H Oxygen Saturatio n Newton Test N/A Arterial Blood A-Line Gas Puncture Site Arterial 0.4 Blood Carboxyhem oglobin Arterial Blood 0.4 Methemoglobin Blood Gas A-a O2 63.9 H Differential Oxyhemoglobin 98.5 Percent Blood Gas 37.0 Temperature Blood Gas 16.0 Respiration Rate Blood Gas Actual 16 Respiration Rate Blood Gas VENT - AC Modality FiO2 40.0 Blood Gas Tidal 400.0 Volume Blood Gas Low 5.0 PEEP Setting Blood Gas 39.0 Inspiratory Pressure Blood Gas MR Notified Whom Blood Gas 07/23/2018 4:59: Notified Time 41 AM Sodium Level 144 Potassium Level 2.9 *L Chloride Level 101 Carbon Dioxide 16 L Level Anion Gap 27 H Blood Urea 22 #H Nitrogen Creatinine 2.53 #H Est Glomerular 23 L Filtrat Rate mL/min Glucose Level 129 # Lactic Acid 15.5 *H Level Calcium Level 8.1 L Magnesium Level 2.0 Iron Level 154 H Total Iron 169 L Binding Capacity Percent Iron 91 H Saturation Total Bilirubin 8.4 H Direct Bilirubin 6.10 H Indirect 2.3 H Bilirubin Aspartate Amino 1196 H Transf (AST/SGOT ) Alanine 354 H Aminotransferase (ALT/SGPT) Alkaline 102 Phosphatase Total Protein 6.7 # Albumin 3.8 Globulin 2.90 Albumin/Globulin 1.31 Ratio Triglycerides 87 Level Cholesterol 54 L Level LDL Cholesterol, 20 Calculated HDL Cholesterol 17 L Cholesterol/HDL 3.1 Ratio Vitamin B12 > 1000 H Level Folate > 20.0 H Bedside Glucose 108 94 77 Test 07/23/18 08:25 07/23/18 09:06 07/23/18 10:03 Bedside Glucose 73 80 85 Medications Medications Current Medications Lorazepam (Ativan) 0.5 mg Q6H PRN IV .ANXIETY; Start 07/22/18 at 10:30 Ondansetron HCl (Zofran Inj) 4 mg Q6H PRN IV NAUSEA/VOMITING; Start 07/22/18 at 10:30 Aspirin (Aspirin) 81 mg DAILY PO ; Start 07/23/18 at 09:00; Status Hold Cefepime HCl 50 ml @ 100 mls/hr Q24H IVPB Last administered on 07/23/18 10:50; Admin Dose 100 MLS/HR; Start 07/22/18 at 11:00 Vancomycin HCl (Vanco Iv Per Pharmacy) VANCOMYCIN PER PHARMACY PER PROTOCOL XX ; Start 07/22/18 at 10:30 Multivit/Ca Carb/ B Cmplx/FA/Prenat (Lalita-Abigail) 1 tab DAILY PO Last administered on 07/23/18 10:31; Admin Dose 1 TAB; Start 07/23/18 at 09:00 Dopamine HCl/ Dextrose 250 ml @ 2.205 mls/ hr TITRATE IV Last administered on 07/22/18 11:31; Admin Dose 15.435 MLS/HR; Start 07/22/18 at 11:30 Phenylephrine HCl 250 ml @ 75 mls/hr TITRATE IV ; Start 07/22/18 at 12:00 Hydrocortisone (Solu-Cortef) 200 mg Q8 IV Last administered on 07/23/18 06:03; Admin Dose 200 MG; Start 07/22/18 at 14:00 Acetaminophen (Tylenol Supp) 650 mg Q4H PRN IN TEMP > 37C; Start 07/22/18 at 12:30 Acetaminophen (Tylenol Liquid) 650 mg Q4H PRN PO TEMP > 37C; Start 07/22/18 at 12:30 Acetaminophen (Tylenol Supp) 500 mg Q6 IN ; Start 07/23/18 at 13:30 Acetaminophen (Tylenol Liquid) 500 mg Q6 PO ; Start 07/23/18 at 13:30 Meperidine HCl (Demerol) 12.5 mg Q4H PRN IV POST OPERATIVE SHIVERING; Start 07/22/18 at 12:30 Meperidine HCl (Demerol) 25 mg Q4H PRN IV POST OPERATIVE SHIVERING; Start 07/22/18 at 12:30 Eye Lubricant (Akwa Oint) 1 applic Q6 BOTH EYES Last administered on 07/23/18 11:39; Admin Dose 1 APPLIC; Start 07/22/18 at 18:00 Eye Lubricant (Artificial Tears Oph) 2 drop Q6 BOTH EYES Last administered on 07/23/18 11:39; Admin Dose 2 DROP; Start 07/22/18 at 18:00 Norepinephrine 250 ml @ 1.875 mls/ hr TITRATE IV Last administered on 07/23/18 01:01; Admin Dose 22.5 MLS/HR; Start 07/22/18 at 13:00 Diagnostic Test (Pha) (Accu-Chek) 1 ea Q1H XX Last administered on 07/23/18 11:39; Admin Dose 1 EA; Start 07/22/18 at 18:00 Insulin Human Regular 100 unit/ Sodium Chloride 100 ml @ 0 mls/hr PER PROTOCOL IV Last administered on 07/22/18 20:56; Admin Dose 3 MLS/HR; Start 07/22/18 at 20:00 Miscellaneous Information (* Miscellaneous Pharmacy Order) Treatment of Hypoglycemia: 1.BG 51... Per protocol XX ; Start 07/22/18 at 18:00 Dextrose (D50w Syringe) 25 ml Q15M PRN IV .DECREASED GLUCOSE Last administered on 07/23/18 03:06; Admin Dose 25 ML; Start 07/22/18 at 18:00 Dextrose (D50w Syringe) 50 ml Q15M PRN IV .DECREASED GLUCOSE; Start 07/22/18 at 18:00 Sodium Bicarbonate 125 meq/Dextrose 1,125 ml @ 50 mls/hr [id number] IV Last administered on 07/22/18 20:46; Admin Dose 50 MLS/HR; Start 07/22/18 at 20:00 Docusate Sodium (Colace Liquid Cup) 100 mg BID NGT Last administered on 07/23/18 10:31; Admin Dose 100 MG; Start 07/22/18 at 22:00 Sodium Chloride 1,000 ml @ 50 mls/hr Q20H IV Last administered on 07/22/18 22:30; Admin Dose 50 MLS/HR; Start 07/22/18 at 21:30; Status Hold Midazolam HCl 50 ml @ 1 mls/hr TITRATE IV Last administered on 07/22/18 23:45; Admin Dose 4 MLS/HR; Start 07/23/18 at 02:00 Dextrose/Sodium Chloride 1,000 ml @ 70 mls/hr [id number] IV Last administered on 07/23/18 03:02; Admin Dose 70 MLS/HR; Start 07/23/18 at 03:00 Sevelamer Carbonate (Renvela) 800 mg WITH MEALS PO ; Start 07/23/18 at 07:35 Famotidine (Pepcid) 20 mg DAILY NGT ; Start 07/23/18 at 12:00 Diagnostic Test (Pha) (Accu-Chek) 1 ea Q6 XX ; Start 07/23/18 at 12:00 Jonathan Woodard DO July 23, 2018 11:57
[2018-07-23] MEDS ORDERED: ACCU-CHEK XX SCH (12:00)
--- NOTE | 2018-07-23 12:31 | CONS ---
Assessment/Plan Assessment/Plan Hospital Course (Demo Recall) Shock ?septic ?cardiogenic S/p PEA arrest Acute resp failure==>intubated S/p MSSA bacteremia per report from [facility], unclear if ROSANNE was done==> pt was dc on Rifampin and ? IV Vanco , last dose 08/23 ESRD SZ do CAD/Hx PPM Anemia Thrombocytopenia DM Blindness R fem TLC L fem Lalo Abx: Vanco, Cefepime Plan: Continue abx, send sputum cx, consider ROSANNE or obtain report of ROSANNE from another facility if it was done, cardiology/pulmonary/renal rec-s Consultation Date/Type/Reason Admit Date/Time July 22, 2018 at 09:09 Type of Consult id Requesting Provider: TRINITY ELENA Date/Time of Note DATE: 07/23/18 TIME: 12:24 Past Medical History Home Meds Reported Medications Sevelamer Hcl* (Renagel*) 800 Mg Tablet, 800 MG PO WITH MEALS, TAB 07/22/18 Folic Acid/Vitamin B Comp W-C (Nephrocaps Capsule) 1 Mg Capsule, 1 MG PO DAILY, CAP 07/22/18 Folic Acid* (Folic Acid*) 1 Mg Tablet, 1 MG PO DAILY, TAB 07/22/18 Diltiazem Hcl* (Cardizem SR*) 60 Mg Capsr, 60 MG PO Q12, #60 CAP 07/22/18 Apixaban* (Eliquis*) 5 Mg Tablet, 5 MG PO BID, TAB 07/22/18 Discontinued Reported Medications Folic Acid/Vitamin B Comp W-C (Nephrocaps Capsule) 1 Mg Capsule, 1 TAB PO DAILY, CAP 11/06/16 Apixaban* (Eliquis*) 5 Mg Tablet, 2.5 MG PO BID, TAB 11/06/16 Carboxymethylcellulose Sodium* (Refresh Tears*) 15 Ml Drops, 1 DROP BOTH EYES TID, #1 EA 11/06/16 Sevelamer Hcl* (Renagel*) 800 Mg Tablet, 800 MG PO WITH MEALS PRN for PRN, TAB 11/06/16 Diltiazem Hcl* (Cardizem SR*) 60 Mg Capsr, 60 MG PO Q12, #60 CAP 11/06/16 Folic Acid* (Folic Acid*) 1 Mg Tablet, 1 MG PO DAILY, TAB 09/17/13 Discontinued Scripts Ondansetron Hcl* (Zofran*) 4 Mg Tablet, 4 MG PO Q6H PRN for NAUSEA AND OR VOMITING, #30 TAB Prov:HARDINSUBHAA V. [employer] 11/06/16 Famotidine* (Pepcid*) 20 Mg Tablet, 20 MG PO BID, #15 TAB Prov:HARDIN,COTY V. [employer] 11/06/16 Medications Current Medications Lorazepam (Ativan) 0.5 mg Q6H PRN IV .ANXIETY; Start 07/22/18 at 10:30 Ondansetron HCl (Zofran Inj) 4 mg Q6H PRN IV NAUSEA/VOMITING; Start 07/22/18 at 10:30 Aspirin (Aspirin) 81 mg DAILY PO ; Start 07/23/18 at 09:00; Status Hold Cefepime HCl 50 ml @ 100 mls/hr Q24H IVPB Last administered on 07/23/18at 10:50 ; Admin Dose 100 MLS/HR; Start 07/22/18 at 11:00 Vancomycin HCl (Vanco Iv Per Pharmacy) VANCOMYCIN PER PHARMACY PER PROTOCOL XX ; Start 07/22/18 at 10:30 Multivit/Ca Carb/ B Cmplx/FA/Prenat (Lalita-Abigail) 1 tab DAILY PO Last administered on 07/23/18at 10:31; Admin Dose 1 TAB; Start 07/23/18 at 09:00 Dopamine HCl/ Dextrose 250 ml @ 2.205 mls/ hr TITRATE IV Last administered on 07/22/18at 11:31; Admin Dose 15.435 MLS/HR; Start 07/22/18 at 11:30 Phenylephrine HCl 250 ml @ 75 mls/hr TITRATE IV ; Start 07/22/18 at 12:00 Hydrocortisone (Solu-Cortef) 200 mg Q8 IV Last administered on 07/23/18at 06:03; Admin Dose 200 MG; Start 07/22/18 at 14:00 Acetaminophen (Tylenol Supp) 650 mg Q4H PRN [place] TEMP > 37C; Start 07/22/18 at 12:30 Acetaminophen (Tylenol Liquid) 650 mg Q4H PRN PO TEMP > 37C; Start 07/22/18 at 12:30 Acetaminophen (Tylenol Supp) 500 mg Q6 [place] ; Start 07/23/18 at 13:30 Acetaminophen (Tylenol Liquid) 500 mg Q6 PO ; Start 07/23/18 at 13:30 Meperidine HCl (Demerol) 12.5 mg Q4H PRN IV POST OPERATIVE SHIVERING; Start 07/22/18 at 12:30 Meperidine HCl (Demerol) 25 mg Q4H PRN IV POST OPERATIVE SHIVERING; Start 07/22/18 at 12:30 Eye Lubricant (Akwa Oint) 1 applic Q6 BOTH EYES Last administered on 07/23/18 11:39; Admin Dose 1 APPLIC; Start 07/22/18 at 18:00 Eye Lubricant (Artificial Tears Oph) 2 drop Q6 BOTH EYES Last administered on 07/23/18 11:39; Admin Dose 2 DROP; Start 07/22/18 at 18:00 Norepinephrine 250 ml @ 1.875 mls/ hr TITRATE IV Last administered on 07/23/18 01:01; Admin Dose 22.5 MLS/HR; Start 07/22/18 at 13:00 Diagnostic Test (Pha) (Accu-Chek) 1 ea Q1H XX Last administered on 07/23/18 11:39; Admin Dose 1 EA; Start 07/22/18 at 18:00 Insulin Human Regular 100 unit/ Sodium Chloride 100 ml @ 0 mls/hr PER PROTOCOL IV Last administered on 07/22/18 20:56; Admin Dose 3 MLS/HR; Start 07/22/18 at 20:00 Miscellaneous Information (* Miscellaneous Pharmacy Order) Treatment of Hypoglycemia: 1.BG 51... Per protocol XX ; Start 07/22/18 at 18:00 Dextrose (D50w Syringe) 25 ml Q15M PRN IV .DECREASED GLUCOSE Last administered on 07/23/18 03:06; Admin Dose 25 ML; Start 07/22/18 at 18:00 Dextrose (D50w Syringe) 50 ml Q15M PRN IV .DECREASED GLUCOSE; Start 07/22/18 at 18:00 Sodium Bicarbonate 125 meq/Dextrose 1,125 ml @ 50 mls/hr [id number] IV Last administered on 07/22/18at 20:46; Admin Dose 50 MLS/HR; Start 07/22/18 at 20:00 Docusate Sodium (Colace Liquid Cup) 100 mg BID NGT Last administered on 07/23/18at 10:31; Admin Dose 100 MG; Start 07/22/18 at 22:00 Sodium Chloride 1,000 ml @ 50 mls/hr Q20H IV Last administered on 07/22/18at 22:30; Admin Dose 50 MLS/HR; Start 07/22/18 at 21:30; Status Hold Midazolam HCl 50 ml @ 1 mls/hr TITRATE IV Last administered on 07/22/18at 23:45; Admin Dose 4 MLS/HR; Start 07/23/18 at 02:00 Dextrose/Sodium Chloride 1,000 ml @ 70 mls/hr [id number] IV Last administered on 07/23/18at 03:02; Admin Dose 70 MLS/HR; Start 07/23/18 at 03:00 Sevelamer Carbonate (Renvela) 800 mg WITH MEALS PO ; Start 07/23/18 at 07:35 Famotidine (Pepcid) 20 mg DAILY NGT ; Start 07/23/18 at 12:00 Diagnostic Test (Pha) (Accu-Chek) 1 ea Q4 XX ; Start 07/23/18 at 13:00 Allergies: Coded Allergies: ciprofloxacin (Unverified Allergy, Severe, 07/22/18) heparin (Unverified Allergy, Severe, 07/22/18) levofloxacin (Unverified Allergy, Severe, 07/22/18) acetaminophen (Unverified Allergy, Mild, 07/22/18) potassium (Unverified Allergy, Unknown, 07/22/18) Uncoded Allergies: TAPE (Allergy, Mild, 11/06/16) Past Surgical History Past Surgical Hx: other (Including but not limited to pacemaker, dialysis graft) Social History Alcohol Use: none Smoking Status: Never smoker Exam/Review of Systems Exam Vitals Vital Signs Date Temp Pulse Resp B/P (MAP) Pulse Ox O2 O2 Flow FiO2 Time Delivery Rate 07/23/18 60 15 91/57 (68) 100 Mechanical 11:00 Ventilator 07/23/18 98.4 08:00 07/23/18 40 08:00 07/22/18 2.0 10:00 Intake and Output 07/22/18 07/22/18 07/23/18 1515:00 23:00 07:00 IntakeIntake Total 597.25 ml 545.75 ml OutputOutput Total 200 ml 400 ml BalanceBalance 397.25 ml 145.75 ml Results Result Diagram: 07/23/18 1152 07/23/18 0500 Results 24hrs Laboratory Tests Test 07/22/18 15:22 07/22/18 15:33 07/22/18 18:26 07/22/18 18:49 Sodium Level 139 Potassium Level 3.7 Chloride Level 100 Carbon Dioxide 7 #*L Level Anion Gap 32 H Blood Urea 56 H Nitrogen Creatinine 6.09 H Est Glomerular 8 L Filtrat Rate mL/min Glucose Level 494 #*H Calcium Level 8.1 L Phosphorus Level 6.9 H Magnesium Level 2.8 H Creatine Kinase 286 H Creatine Kinase 4.6 Index Creatinine 13.20 H Kinase MB (Mass) Troponin I 0.190 *H Bedside Glucose 490 *H Blood Gas Blood arterial Specimen Source Arterial Blood 07/22/2018 5:48: Date Drawn 06 PM Arterial Blood 6.838 *L pH (Temp corrected) Arterial Blood 29.8 L pCO2 (Temp correct) Arterial Blood 216.0 H pO2 (Temp corrected) Arterial Blood 4.9 *L HCO3 Arterial Blood -27.7 L Base Excess Arterial Blood 98.6 H Oxygen Saturatio n [place] Test N/A Arterial Blood A-Line Gas Puncture Site Arterial 0.3 Blood Carboxyhem oglobin Arterial Blood 0.7 Methemoglobin Blood Gas A-a O2 107.0 H Differential Oxyhemoglobin 97.6 Percent Blood Gas 37.0 Temperature Blood Gas 16.0 Respiration Rate Blood Gas Actual 18 Respiration Rate Blood Gas VENT - AC Modality FiO2 50.0 Blood Gas Tidal 400.0 Volume Blood Gas Low 5.0 PEEP Setting Blood Gas JUNI MONREAL Critical Value Read Back Blood Gas AT Notified Whom Blood Gas 07/22/2018 6:01: Notified Time 32 PM White Blood 18.4 #H Count Red Blood Count 2.30 L Hemoglobin 8.5 L Hematocrit 28.7 L Mean Corpuscular 124.8 H Volume Mean Corpuscular 37.0 H Hemoglobin Mean Corpuscular 29.6 L Hemoglobin Isadora nt Red Cell 24.2 H Distribution Width Platelet Count 59 L Mean Platelet 12.8 H Volume Immature 1.500 H Granulocytes % Neutrophils % Segmented 81 H Neutrophils % (Manual) Band Neutrophils 7 H % (Manual) Lymphocytes % Lymphocytes % 10 L (Manual) Monocytes % Monocytes % 2 (Manual) Eosinophils % Basophils % Nucleated Red 1 H Blood Cells % Immature 0.270 H Granulocytes # Neutrophils # Neutrophils # 15.1 H (Manual) Band Neutrophils 1.2 H # Lymphocytes 1.8 (Manual) Lymphocytes # Monocytes # Monocytes # 0.3 (Manual) Eosinophils # Basophils # Nucleated Red Blood Cells # Platelet DECREASED Estimate Poikilocytosis 2+ Anisocytosis 2+ Macrocytosis 2+ Test 07/22/18 18:50 07/22/18 20:53 07/22/18 22:01 07/22/18 23:06 Sodium Level 142 Potassium Level 3.7 Chloride Level 103 Carbon Dioxide 7 *L Level Anion Gap 32 H Blood Urea 54 H Nitrogen Creatinine 6.26 H Est Glomerular 8 L Filtrat Rate mL/min Glucose Level 314 #H Lactic Acid 15.6 *H Level Calcium Level 7.7 L Phosphorus Level 7.3 H Magnesium Level 2.9 H Bedside Glucose 256 H 196 146 Test 07/23/18 00:09 07/23/18 01:25 07/23/18 02:05 07/23/18 03:04 Bedside Glucose 104 87 71 63 L Test 07/23/18 03:21 07/23/18 03:36 07/23/18 04:08 07/23/18 04:59 Bedside Glucose 194 143 146 185 Test 07/23/18 05:00 07/23/18 05:53 07/23/18 07:28 07/23/18 08:23 White Blood 13.6 #H Count Red Blood Count 1.81 #L Hemoglobin 6.9 *L Hematocrit 20.9 #L Mean Corpuscular 115.5 H Volume Mean Corpuscular 38.1 H Hemoglobin Mean Corpuscular 33.0 Hemoglobin Isadora nt Red Cell 23.6 H Distribution Width Platelet Count 26 #*L Mean Platelet 13.2 H Volume Immature 0.600 H Granulocytes % Neutrophils % Segmented 65 Neutrophils % (Manual) Band Neutrophils 19 H % (Manual) Lymphocytes % Lymphocytes % 10 L (Manual) Monocytes % Monocytes % 6 (Manual) Eosinophils % Basophils % Nucleated Red 2 H Blood Cells % Immature 0.080 H Granulocytes # Neutrophils # Neutrophils # 9.2 H (Manual) Band Neutrophils 2.5 H # Lymphocytes 1.3 (Manual) Lymphocytes # Monocytes # Monocytes # 0.8 (Manual) Eosinophils # Basophils # Nucleated Red Blood Cells # Platelet NORMAL Estimate Polychromasia 1+ Anisocytosis 3+ Macrocytosis 3+ Spherocytes 1+ Target Cells 1+ Blood Gas Blood arterial Specimen Source Arterial Blood 07/23/2018 4:50: Date Drawn 38 AM Arterial Blood 7.365 pH (Temp corrected) Arterial Blood 28.0 L pCO2 (Temp correct) Arterial Blood 189.1 H pO2 (Temp corrected) Arterial Blood 15.6 L HCO3 Arterial Blood -8.7 L Base Excess Arterial Blood 99.3 H Oxygen Saturatio n [place] Test N/A Arterial Blood A-Line Gas Puncture Site Arterial 0.4 Blood Carboxyhem oglobin Arterial Blood 0.4 Methemoglobin Blood Gas A-a O2 63.9 H Differential Oxyhemoglobin 98.5 Percent Blood Gas 37.0 Temperature Blood Gas 16.0 Respiration Rate Blood Gas Actual 16 Respiration Rate Blood Gas VENT - AC Modality FiO2 40.0 Blood Gas Tidal 400.0 Volume Blood Gas Low 5.0 PEEP Setting Blood Gas 39.0 Inspiratory Pressure Blood Gas MR Notified Whom Blood Gas 07/23/2018 4:59: Notified Time 41 AM Sodium Level 144 Potassium Level 2.9 *L Chloride Level 101 Carbon Dioxide 16 L Level Anion Gap 27 H Blood Urea 22 #H Nitrogen Creatinine 2.53 #H Est Glomerular 23 L Filtrat Rate mL/min Glucose Level 129 # Lactic Acid 15.5 *H Level Calcium Level 8.1 L Magnesium Level 2.0 Iron Level 154 H Total Iron 169 L Binding Capacity Percent Iron 91 H Saturation Total Bilirubin 8.4 H Direct Bilirubin 6.10 H Indirect 2.3 H Bilirubin Aspartate Amino 1196 H Transf (AST/SGOT ) Alanine 354 H Aminotransferase (ALT/SGPT) Alkaline 102 Phosphatase Total Protein 6.7 # Albumin 3.8 Globulin 2.90 Albumin/Globulin 1.31 Ratio Triglycerides 87 Level Cholesterol 54 L Level LDL Cholesterol, 20 Calculated HDL Cholesterol 17 L Cholesterol/HDL 3.1 Ratio Vitamin B12 > 1000 H Level Folate > 20.0 H Bedside Glucose 108 94 77 Test 07/23/18 08:25 07/23/18 09:06 07/23/18 10:03 07/23/18 11:52 Bedside Glucose 73 80 85 Platelet Count 21 *L Prothrombin Time Pending Prothrombin Time Pending Ratio INR Pending International Normalized Ratio Activated Pending Partial Thrombop last Time Thrombin Time Pending Fibrinogen Pending D-Dimer Pending Medications Medication Current Medications Lorazepam (Ativan) 0.5 mg Q6H PRN IV .ANXIETY; Start 07/22/18 at 10:30 Ondansetron HCl (Zofran Inj) 4 mg Q6H PRN IV NAUSEA/VOMITING; Start 07/22/18 at 10:30 Aspirin (Aspirin) 81 mg DAILY PO ; Start 07/23/18 at 09:00; Status Hold Cefepime HCl 50 ml @ 100 mls/hr Q24H IVPB Last administered on 07/23/18at 10:50; Admin Dose 100 MLS/HR; Start 07/22/18 at 11:00 Vancomycin HCl (Vanco Iv Per Pharmacy) VANCOMYCIN PER PHARMACY PER PROTOCOL XX ; Start 07/22/18 at 10:30 Multivit/Ca Carb/ B Cmplx/FA/Prenat (Lalita-Abigail) 1 tab DAILY PO Last administered on 07/23/18at 10:31; Admin Dose 1 TAB; Start 07/23/18 at 09:00 Dopamine HCl/ Dextrose 250 ml @ 2.205 mls/ hr TITRATE IV Last administered on 07/22/18at 11:31; Admin Dose 15.435 MLS/HR; Start 07/22/18 at 11:30 Phenylephrine HCl 250 ml @ 75 mls/hr TITRATE IV ; Start 07/22/18 at 12:00 Hydrocortisone (Solu-Cortef) 200 mg Q8 IV Last administered on 07/23/18at 06:03; Admin Dose 200 MG; Start 07/22/18 at 14:00 Acetaminophen (Tylenol Supp) 650 mg Q4H PRN [place] TEMP > 37C; Start 07/22/18 at 12:30 Acetaminophen (Tylenol Liquid) 650 mg Q4H PRN PO TEMP > 37C; Start 07/22/18 at 12:30 Acetaminophen (Tylenol Supp) 500 mg Q6 [place] ; Start 07/23/18 at 13:30 Acetaminophen (Tylenol Liquid) 500 mg Q6 PO ; Start 07/23/18 at 13:30 Meperidine HCl (Demerol) 12.5 mg Q4H PRN IV POST OPERATIVE SHIVERING; Start 07/22/18 at 12:30 Meperidine HCl (Demerol) 25 mg Q4H PRN IV POST OPERATIVE SHIVERING; Start 07/22/18 at 12:30 Eye Lubricant (Akwa Oint) 1 applic Q6 BOTH EYES Last administered on 07/23/18 11:39; Admin Dose 1 APPLIC; Start 07/22/18 at 18:00 Eye Lubricant (Artificial Tears Oph) 2 drop Q6 BOTH EYES Last administered on 07/23/18 11:39; Admin Dose 2 DROP; Start 07/22/18 at 18:00 Norepinephrine 250 ml @ 1.875 mls/ hr TITRATE IV Last administered on 07/23/18 01:01; Admin Dose 22.5 MLS/HR; Start 07/22/18 at 13:00 Diagnostic Test (Pha) (Accu-Chek) 1 ea Q1H XX Last administered on 07/23/18 11:39; Admin Dose 1 EA; Start 07/22/18 at 18:00 Insulin Human Regular 100 unit/ Sodium Chloride 100 ml @ 0 mls/hr PER PROTOCOL IV Last administered on 07/22/18 20:56; Admin Dose 3 MLS/HR; Start 07/22/18 at 20:00 Miscellaneous Information (* Miscellaneous Pharmacy Order) Treatment of Hypoglycemia: 1.BG 51... Per protocol XX ; Start 07/22/18 at 18:00 Dextrose (D50w Syringe) 25 ml Q15M PRN IV .DECREASED GLUCOSE Last administered on 07/23/18 03:06; Admin Dose 25 ML; Start 07/22/18 at 18:00 Dextrose (D50w Syringe) 50 ml Q15M PRN IV .DECREASED GLUCOSE; Start 07/22/18 at 18:00 Sodium Bicarbonate 125 meq/Dextrose 1,125 ml @ 50 mls/hr [id number] IV Last administered on 07/22/18 20:46; Admin Dose 50 MLS/HR; Start 07/22/18 at 20:00 Docusate Sodium (Colace Liquid Cup) 100 mg BID NGT Last administered on 07/23/18 10:31; Admin Dose 100 MG; Start 07/22/18 at 22:00 Sodium Chloride 1,000 ml @ 50 mls/hr Q20H IV Last administered on 07/22/18 22:30; Admin Dose 50 MLS/HR; Start 07/22/18 at 21:30; Status Hold Midazolam HCl 50 ml @ 1 mls/hr TITRATE IV Last administered on 5/21/19at 23:45; Admin Dose 4 MLS/HR; Start 07/23/18 at 02:00 Dextrose/Sodium Chloride 1,000 ml @ 70 mls/hr [id number] IV Last administered on 07/23/18at 03:02; Admin Dose 70 MLS/HR; Start 07/23/18 at 03:00 Sevelamer Carbonate (Renvela) 800 mg WITH MEALS PO ; Start 07/23/18 at 07:35 Famotidine (Pepcid) 20 mg DAILY NGT ; Start 07/23/18 at 12:00 Diagnostic Test (Pha) (Accu-Chek) 1 ea Q4 XX ; Start 07/23/18 at 13:00 OSIRIS COX NP July 23, 2018 12:31
--- NOTE | 2018-07-23 12:36 | PN ---
Date/Time of Note Date/Time of Note DATE: 07/23/18 TIME: 12:18 Assessment/Plan VTE Prophylaxis Risk score (from Ns)>0 risk: 10 SCD applied (from Ns): Yes Pharmacological prophylaxis: NA/contraindicated Pharm contraindication: thrombocytopenia Lines/Catheters IV C[facility]ter Type (from [facility] A Line Urinary Cath still in place: No Assessment/Plan Hospital Course subjective: remains intubated and sedated, on minimal pressor support Objective : GENERAL: Intubated and comfortably sedated, was following commands off sedation per nurse HEENT: Intubated, Vent settings noted LUNGS: diffusely diminished HEART: S1, S2. No murmur, gallops or rubs. ABDOMEN: Soft, non distended, Normoactive bowel sounds. GENITOURINARY: Normal female external genitalia, Cordon to bedside drainage EXTREMITIES: RUE dialysis graft NEUROLOGIC: The patient is currently sedated. SKIN: diffuse ecchymosis with skin tears on buttocks assessment and plan: 27-year-old woman with history of end-stage kidney disease hemodialysis dependent was brought in by EMS from home for confusion and altered mental status and hypoglycemia . She had been recently discharged from outside hospital after being managed for MSSA bacteremia, no clear source has been found. She was home for 3 days before she was brought here. She suffered cardiac arrest in the emergency room after she was treated for hypoglycemia , she is currently managed as follows: Status post cardiac arrest with return of spontaneous circulation Likely secondary to metabolic causes from missed hemodialysis Acute respiratory failure: Remains ventilator dependent Severe Sepsis with septic shock and severe lactic acidosis -multifactorial, possible PNA / pancreatitis -remains on minimal pressor support Acute metabolic encephalopathy due to hypoglycemia likely from #1 Fluid overload vs CHF Acute Pancreatitis Elevated trop vs Nstemi Possible LLL pneumonia -recent hospitalization with reports of MSSA bacteremia ESRD on HD with severe metabolic acidosis -2/2 lupus nephritis? 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 -transfusion today -iron , folate and B12 levels wnl -hematology consult ? Debility / Malnuitrition Eliquis therapy: on hold Hx of Mssa bacteremia -ROSANNE was done without evidence of endocarditis -subsequent blood cultures have been negative -no concern for vegetations on TTE here Mild CM on echo with EF45% and Moderate mitral and tricuspid regurgitation Plan: Continue Ventilator weaning and support Continue steroids for now? Continue current abx till ID review Blood transfusion today Continue routine HD per renal Wound care consult for buttock skin tears Continue close ICU monitoring Prognosis remains guarded Care time >40mins , spoke with family extensively Result Diagram: 07/23/18 1152 07/23/18 0500 Results 24hrs Laboratory Tests Test 07/22/18 15:22 07/22/18 15:33 07/22/18 18:26 07/22/18 18:49 Sodium Level 139 Potassium Level 3.7 Chloride Level 100 Carbon Dioxide 7 #*L Level Anion Gap 32 H Blood Urea 56 H Nitrogen Creatinine 6.09 H Est Glomerular 8 L Filtrat Rate mL/min Glucose Level 494 #*H Calcium Level 8.1 L Phosphorus Level 6.9 H Magnesium Level 2.8 H Creatine Kinase 286 H Creatine Kinase 4.6 Index Creatinine 13.20 H Kinase MB (Mass) Troponin I 0.190 *H Bedside Glucose 490 *H Blood Gas Blood arterial Specimen Source Arterial Blood 07/22/2018 5:48: Date Drawn 06 PM Arterial Blood 6.838 *L pH (Temp corrected) Arterial Blood 29.8 L pCO2 (Temp correct) Arterial Blood 216.0 H pO2 (Temp corrected) Arterial Blood 4.9 *L HCO3 Arterial Blood -27.7 L Base Excess Arterial Blood 98.6 H Oxygen Saturatio n [place] Test N/A Arterial Blood A-Line Gas Puncture Site Arterial 0.3 Blood Carboxyhem oglobin Arterial Blood 0.7 Methemoglobin Blood Gas A-a O2 107.0 H Differential Oxyhemoglobin 97.6 Percent Blood Gas 37.0 Temperature Blood Gas 16.0 Respiration Rate Blood Gas Actual 18 Respiration Rate Blood Gas VENT - AC Modality FiO2 50.0 Blood Gas Tidal 400.0 Volume Blood Gas Low 5.0 PEEP Setting Blood Gas JUNI MONREAL Critical Value Read Back Blood Gas AT Notified Whom Blood Gas 07/22/2018 6:01: Notified Time 32 PM White Blood 18.4 #H Count Red Blood Count 2.30 L Hemoglobin 8.5 L Hematocrit 28.7 L Mean Corpuscular 124.8 H Volume Mean Corpuscular 37.0 H Hemoglobin Mean Corpuscular 29.6 L Hemoglobin Isadora nt Red Cell 24.2 H Distribution Width Platelet Count 59 L Mean Platelet 12.8 H Volume Immature 1.500 H Granulocytes % Neutrophils % Segmented 81 H Neutrophils % (Manual) Band Neutrophils 7 H % (Manual) Lymphocytes % Lymphocytes % 10 L (Manual) Monocytes % Monocytes % 2 (Manual) Eosinophils % Basophils % Nucleated Red 1 H Blood Cells % Immature 0.270 H Granulocytes # Neutrophils # Neutrophils # 15.1 H (Manual) Band Neutrophils 1.2 H # Lymphocytes 1.8 (Manual) Lymphocytes # Monocytes # Monocytes # 0.3 (Manual) Eosinophils # Basophils # Nucleated Red Blood Cells # Platelet DECREASED Estimate Poikilocytosis 2+ Anisocytosis 2+ Macrocytosis 2+ Test 07/22/18 18:50 07/22/18 20:53 07/22/18 22:01 07/22/18 23:06 Sodium Level 142 Potassium Level 3.7 Chloride Level 103 Carbon Dioxide 7 *L Level Anion Gap 32 H Blood Urea 54 H Nitrogen Creatinine 6.26 H Est Glomerular 8 L Filtrat Rate mL/min Glucose Level 314 #H Lactic Acid 15.6 *H Level Calcium Level 7.7 L Phosphorus Level 7.3 H Magnesium Level 2.9 H Bedside Glucose 256 H 196 146 Test 07/23/18 00:09 07/23/18 01:25 07/23/18 02:05 07/23/18 03:04 Bedside Glucose 104 87 71 63 L Test 07/23/18 03:21 07/23/18 03:36 07/23/18 04:08 07/23/18 04:59 Bedside Glucose 194 143 146 185 Test 07/23/18 05:00 07/23/18 05:53 07/23/18 07:28 07/23/18 08:23 White Blood 13.6 #H Count Red Blood Count 1.81 #L Hemoglobin 6.9 *L Hematocrit 20.9 #L Mean Corpuscular 115.5 H Volume Mean Corpuscular 38.1 H Hemoglobin Mean Corpuscular 33.0 Hemoglobin Isadora nt Red Cell 23.6 H Distribution Width Platelet Count 26 #*L Mean Platelet 13.2 H Volume Immature 0.600 H Granulocytes % Neutrophils % Segmented 65 Neutrophils % (Manual) Band Neutrophils 19 H % (Manual) Lymphocytes % Lymphocytes % 10 L (Manual) Monocytes % Monocytes % 6 (Manual) Eosinophils % Basophils % Nucleated Red 2 H Blood Cells % Immature 0.080 H Granulocytes # Neutrophils # Neutrophils # 9.2 H (Manual) Band Neutrophils 2.5 H # Lymphocytes 1.3 (Manual) Lymphocytes # Monocytes # Monocytes # 0.8 (Manual) Eosinophils # Basophils # Nucleated Red Blood Cells # Platelet NORMAL Estimate Polychromasia 1+ Anisocytosis 3+ Macrocytosis 3+ Spherocytes 1+ Target Cells 1+ Blood Gas Blood arterial Specimen Source Arterial Blood 07/23/2018 4:50: Date Drawn 38 AM Arterial Blood 7.365 pH (Temp corrected) Arterial Blood 28.0 L pCO2 (Temp correct) Arterial Blood 189.1 H pO2 (Temp corrected) Arterial Blood 15.6 L HCO3 Arterial Blood -8.7 L Base Excess Arterial Blood 99.3 H Oxygen Saturatio n Newton Test N/A Arterial Blood A-Line Gas Puncture Site Arterial 0.4 Blood Carboxyhem oglobin Arterial Blood 0.4 Methemoglobin Blood Gas A-a O2 63.9 H Differential Oxyhemoglobin 98.5 Percent Blood Gas 37.0 Temperature Blood Gas 16.0 Respiration Rate Blood Gas Actual 16 Respiration Rate Blood Gas VENT - AC Modality FiO2 40.0 Blood Gas Tidal 400.0 Volume Blood Gas Low 5.0 PEEP Setting Blood Gas 39.0 Inspiratory Pressure Blood Gas MR Notified Whom Blood Gas 07/23/2018 4:59: Notified Time 41 AM Sodium Level 144 Potassium Level 2.9 *L Chloride Level 101 Carbon Dioxide 16 L Level Anion Gap 27 H Blood Urea 22 #H Nitrogen Creatinine 2.53 #H Est Glomerular 23 L Filtrat Rate mL/min Glucose Level 129 # Lactic Acid 15.5 *H Level Calcium Level 8.1 L Magnesium Level 2.0 Iron Level 154 H Total Iron 169 L Binding Capacity Percent Iron 91 H Saturation Total Bilirubin 8.4 H Direct Bilirubin 6.10 H Indirect 2.3 H Bilirubin Aspartate Amino 1196 H Transf (AST/SGOT ) Alanine 354 H Aminotransferase (ALT/SGPT) Alkaline 102 Phosphatase Total Protein 6.7 # Albumin 3.8 Globulin 2.90 Albumin/Globulin 1.31 Ratio Triglycerides 87 Level Cholesterol 54 L Level LDL Cholesterol, 20 Calculated HDL Cholesterol 17 L Cholesterol/HDL 3.1 Ratio Vitamin B12 > 1000 H Level Folate > 20.0 H Bedside Glucose 108 94 77 Test 07/23/18 08:25 07/23/18 09:06 07/23/18 10:03 07/23/18 11:52 Bedside Glucose 73 80 85 Platelet Count 21 *L Prothrombin Time Pending Prothrombin Time Pending Ratio INR Pending International Normalized Ratio Activated Pending Partial Thrombop last Time Thrombin Time Pending Fibrinogen Pending D-Dimer Pending Exam/Review of Systems Exam Vitals Vital Signs Date Temp Pulse Resp B/P (MAP) Pulse Ox O2 O2 Flow FiO2 Time Delivery Rate 07/23/18 60 15 91/57 (68) 100 Mechanical 11:00 Ventilator 07/23/18 98.4 08:00 07/23/18 40 08:00 07/22/18 2.0 10:00 Intake and Output 07/22/18 07/22/18 07/23/18 1515:00 23:00 07:00 IntakeIntake Total 597.25 ml 545.75 ml OutputOutput Total 200 ml 400 ml BalanceBalance 397.25 ml 145.75 ml Results Results 24hrs Laboratory Tests Test 07/22/18 15:22 07/22/18 15:33 07/22/18 18:26 07/22/18 18:49 Sodium Level 139 Potassium Level 3.7 Chloride Level 100 Carbon Dioxide 7 #*L Level Anion Gap 32 H Blood Urea 56 H Nitrogen Creatinine 6.09 H Est Glomerular 8 L Filtrat Rate mL/min Glucose Level 494 #*H Calcium Level 8.1 L Phosphorus Level 6.9 H Magnesium Level 2.8 H Creatine Kinase 286 H Creatine Kinase 4.6 Index Creatinine 13.20 H Kinase MB (Mass) Troponin I 0.190 *H Bedside Glucose 490 *H Blood Gas Blood arterial Specimen Source Arterial Blood 07/22/2018 5:48: Date Drawn 06 PM Arterial Blood 6.838 *L pH (Temp corrected) Arterial Blood 29.8 L pCO2 (Temp correct) Arterial Blood 216.0 H pO2 (Temp corrected) Arterial Blood 4.9 *L HCO3 Arterial Blood -27.7 L Base Excess Arterial Blood 98.6 H Oxygen Saturatio n [place] Test N/A Arterial Blood A-Line Gas Puncture Site Arterial 0.3 Blood Carboxyhem oglobin Arterial Blood 0.7 Methemoglobin Blood Gas A-a O2 107.0 H Differential Oxyhemoglobin 97.6 Percent Blood Gas 37.0 Temperature Blood Gas 16.0 Respiration Rate Blood Gas Actual 18 Respiration Rate Blood Gas VENT - AC Modality FiO2 50.0 Blood Gas Tidal 400.0 Volume Blood Gas Low 5.0 PEEP Setting Blood Gas JUNI MONREAL Critical Value Read Back Blood Gas AT Notified Whom Blood Gas 07/22/2018 6:01: Notified Time 32 PM White Blood 18.4 #H Count Red Blood Count 2.30 L Hemoglobin 8.5 L Hematocrit 28.7 L Mean Corpuscular 124.8 H Volume Mean Corpuscular 37.0 H Hemoglobin Mean Corpuscular 29.6 L Hemoglobin Isadora nt Red Cell 24.2 H Distribution Width Platelet Count 59 L Mean Platelet 12.8 H Volume Immature 1.500 H Granulocytes % Neutrophils % Segmented 81 H Neutrophils % (Manual) Band Neutrophils 7 H % (Manual) Lymphocytes % Lymphocytes % 10 L (Manual) Monocytes % Monocytes % 2 (Manual) Eosinophils % Basophils % Nucleated Red 1 H Blood Cells % Immature 0.270 H Granulocytes # Neutrophils # Neutrophils # 15.1 H (Manual) Band Neutrophils 1.2 H # Lymphocytes 1.8 (Manual) Lymphocytes # Monocytes # Monocytes # 0.3 (Manual) Eosinophils # Basophils # Nucleated Red Blood Cells # Platelet DECREASED Estimate Poikilocytosis 2+ Anisocytosis 2+ Macrocytosis 2+ Test 07/22/18 18:50 07/22/18 20:53 07/22/18 22:01 07/22/18 23:06 Sodium Level 142 Potassium Level 3.7 Chloride Level 103 Carbon Dioxide 7 *L Level Anion Gap 32 H Blood Urea 54 H Nitrogen Creatinine 6.26 H Est Glomerular 8 L Filtrat Rate mL/min Glucose Level 314 #H Lactic Acid 15.6 *H Level Calcium Level 7.7 L Phosphorus Level 7.3 H Magnesium Level 2.9 H Bedside Glucose 256 H 196 146 Test 07/23/18 00:09 07/23/18 01:25 07/23/18 02:05 07/23/18 03:04 Bedside Glucose 104 87 71 63 L Test 07/23/18 03:21 07/23/18 03:36 07/23/18 04:08 07/23/18 04:59 Bedside Glucose 194 143 146 185 Test 07/23/18 05:00 07/23/18 05:53 07/23/18 07:28 07/23/18 08:23 White Blood 13.6 #H Count Red Blood Count 1.81 #L Hemoglobin 6.9 *L Hematocrit 20.9 #L Mean Corpuscular 115.5 H Volume Mean Corpuscular 38.1 H Hemoglobin Mean Corpuscular 33.0 Hemoglobin Isadora nt Red Cell 23.6 H Distribution Width Platelet Count 26 #*L Mean Platelet 13.2 H Volume Immature 0.600 H Granulocytes % Neutrophils % Segmented 65 Neutrophils % (Manual) Band Neutrophils 19 H % (Manual) Lymphocytes % Lymphocytes % 10 L (Manual) Monocytes % Monocytes % 6 (Manual) Eosinophils % Basophils % Nucleated Red 2 H Blood Cells % Immature 0.080 H Granulocytes # Neutrophils # Neutrophils # 9.2 H (Manual) Band Neutrophils 2.5 H # Lymphocytes 1.3 (Manual) Lymphocytes # Monocytes # Monocytes # 0.8 (Manual) Eosinophils # Basophils # Nucleated Red Blood Cells # Platelet NORMAL Estimate Polychromasia 1+ Anisocytosis 3+ Macrocytosis 3+ Spherocytes 1+ Target Cells 1+ Blood Gas Blood arterial Specimen Source Arterial Blood 07/23/2018 4:50: Date Drawn 38 AM Arterial Blood 7.365 pH (Temp corrected) Arterial Blood 28.0 L pCO2 (Temp correct) Arterial Blood 189.1 H pO2 (Temp corrected) Arterial Blood 15.6 L HCO3 Arterial Blood -8.7 L Base Excess Arterial Blood 99.3 H Oxygen Saturatio n [place] Test N/A Arterial Blood A-Line Gas Puncture Site Arterial 0.4 Blood Carboxyhem oglobin Arterial Blood 0.4 Methemoglobin Blood Gas A-a O2 63.9 H Differential Oxyhemoglobin 98.5 Percent Blood Gas 37.0 Temperature Blood Gas 16.0 Respiration Rate Blood Gas Actual 16 Respiration Rate Blood Gas VENT - AC Modality FiO2 40.0 Blood Gas Tidal 400.0 Volume Blood Gas Low 5.0 PEEP Setting Blood Gas 39.0 Inspiratory Pressure Blood Gas MR Notified Whom Blood Gas 07/23/2018 4:59: Notified Time 41 AM Sodium Level 144 Potassium Level 2.9 *L Chloride Level 101 Carbon Dioxide 16 L Level Anion Gap 27 H Blood Urea 22 #H Nitrogen Creatinine 2.53 #H Est Glomerular 23 L Filtrat Rate mL/min Glucose Level 129 # Lactic Acid 15.5 *H Level Calcium Level 8.1 L Magnesium Level 2.0 Iron Level 154 H Total Iron 169 L Binding Capacity Percent Iron 91 H Saturation Total Bilirubin 8.4 H Direct Bilirubin 6.10 H Indirect 2.3 H Bilirubin Aspartate Amino 1196 H Transf (AST/SGOT ) Alanine 354 H Aminotransferase (ALT/SGPT) Alkaline 102 Phosphatase Total Protein 6.7 # Albumin 3.8 Globulin 2.90 Albumin/Globulin 1.31 Ratio Triglycerides 87 Level Cholesterol 54 L Level LDL Cholesterol, 20 Calculated HDL Cholesterol 17 L Cholesterol/HDL 3.1 Ratio Vitamin B12 > 1000 H Level Folate > 20.0 H Bedside Glucose 108 94 77 Test 07/23/18 08:25 07/23/18 09:06 07/23/18 10:03 07/23/18 11:52 Bedside Glucose 73 80 85 Platelet Count 21 *L Prothrombin Time Pending Prothrombin Time Pending Ratio INR Pending International Normalized Ratio Activated Pending Partial Thrombop last Time Thrombin Time Pending Fibrinogen Pending D-Dimer Pending Medications Medication Current Medications Lorazepam (Ativan) 0.5 mg Q6H PRN IV .ANXIETY; Start 07/22/18 at 10:30 Ondansetron HCl (Zofran Inj) 4 mg Q6H PRN IV NAUSEA/VOMITING; Start 07/22/18 at 10:30 Aspirin (Aspirin) 81 mg DAILY PO ; Start 07/23/18 at 09:00; Status Hold Cefepime HCl 50 ml @ 100 mls/hr Q24H IVPB Last administered on 07/23/18at 10:50; Admin Dose 100 MLS/HR; Start 07/22/18 at 11:00 Vancomycin HCl (Vanco Iv Per Pharmacy) VANCOMYCIN PER PHARMACY PER PROTOCOL XX ; Start 07/22/18 at 10:30 Multivit/Ca Carb/ B Cmplx/FA/Prenat (Lalita-Abigail) 1 tab DAILY PO Last administered on 07/23/18at 10:31; Admin Dose 1 TAB; Start 07/23/18 at 09:00 Dopamine HCl/ Dextrose 250 ml @ 2.205 mls/ hr TITRATE IV Last administered on 07/22/18at 11:31; Admin Dose 15.435 MLS/HR; Start 07/22/18 at 11:30 Phenylephrine HCl 250 ml @ 75 mls/hr TITRATE IV ; Start 07/22/18 at 12:00 Hydrocortisone (Solu-Cortef) 200 mg Q8 IV Last administered on 07/23/18at 06:03; Admin Dose 200 MG; Start 07/22/18 at 14:00 Acetaminophen (Tylenol Supp) 650 mg Q4H PRN MA TEMP > 37C; Start 07/22/18 at 12:30 Acetaminophen (Tylenol Liquid) 650 mg Q4H PRN PO TEMP > 37C; Start 07/22/18 at 12:30 Acetaminophen (Tylenol Supp) 500 mg Q6 MA ; Start 07/23/18 at 13:30 Acetaminophen (Tylenol Liquid) 500 mg Q6 PO ; Start 07/23/18 at 13:30 Meperidine HCl (Demerol) 12.5 mg Q4H PRN IV POST OPERATIVE SHIVERING; Start 07/22/18 at 12:30 Meperidine HCl (Demerol) 25 mg Q4H PRN IV POST OPERATIVE SHIVERING; Start 07/22/18 at 12:30 Eye Lubricant (Akwa Oint) 1 applic Q6 BOTH EYES Last administered on 07/23/18 11:39; Admin Dose 1 APPLIC; Start 07/22/18 at 18:00 Eye Lubricant (Artificial Tears Oph) 2 drop Q6 BOTH EYES Last administered on 07/23/18 11:39; Admin Dose 2 DROP; Start 07/22/18 at 18:00 Norepinephrine 250 ml @ 1.875 mls/ hr TITRATE IV Last administered on 07/23/18 01:01; Admin Dose 22.5 MLS/HR; Start 07/22/18 at 13:00 Diagnostic Test (Pha) (Accu-Chek) 1 ea Q1H XX Last administered on 07/23/18 11:39; Admin Dose 1 EA; Start 07/22/18 at 18:00 Insulin Human Regular 100 unit/ Sodium Chloride 100 ml @ 0 mls/hr PER PROTOCOL IV Last administered on 07/22/18 20:56; Admin Dose 3 MLS/HR; Start 07/22/18 at 20:00 Miscellaneous Information (* Miscellaneous Pharmacy Order) Treatment of Hypoglycemia: 1.BG 51... Per protocol XX ; Start 07/22/18 at 18:00 Dextrose (D50w Syringe) 25 ml Q15M PRN IV .DECREASED GLUCOSE Last administered on 07/23/18 03:06; Admin Dose 25 ML; Start 07/22/18 at 18:00 Dextrose (D50w Syringe) 50 ml Q15M PRN IV .DECREASED GLUCOSE; Start 07/22/18 at 18:00 Sodium Bicarbonate 125 meq/Dextrose 1,125 ml @ 50 mls/hr [id number] IV Last administered on 5/21/19at 20:46; Admin Dose 50 MLS/HR; Start 07/22/18 at 20:00 Docusate Sodium (Colace Liquid Cup) 100 mg BID NGT Last administered on 07/23/18at 10:31; Admin Dose 100 MG; Start 07/22/18 at 22:00 Sodium Chloride 1,000 ml @ 50 mls/hr Q20H IV Last administered on 07/22/18at 22:30; Admin Dose 50 MLS/HR; Start 07/22/18 at 21:30; Status Hold Midazolam HCl 50 ml @ 1 mls/hr TITRATE IV Last administered on 07/22/18at 23:45; Admin Dose 4 MLS/HR; Start 07/23/18 at 02:00 Dextrose/Sodium Chloride 1,000 ml @ 70 mls/hr [id number] IV Last administered on 07/23/18 03:02; Admin Dose 70 MLS/HR; Start 07/23/18 at 03:00 Sevelamer Carbonate (Renvela) 800 mg WITH MEALS PO ; Start 07/23/18 at 07:35 Famotidine (Pepcid) 20 mg DAILY NGT ; Start 07/23/18 at 12:00 Diagnostic Test (Pha) (Accu-Chek) 1 ea Q4 XX ; Start 07/23/18 at 13:00 TRINITY ELENA July 23, 2018 12:28
[2018-07-23] MEDS ORDERED: ACETAMINOPHEN 650MG/20.3ML CUP PO SCH (13:30)
[2018-07-23] MEDS ORDERED: ACETAMINOPHEN 650 MG SUPP PR SCH (13:30)
[2018-07-23] MEDS: MIDAZOLAM (DRIP) 50 mg/50 mL 50 ML IV SCH (15:53)
[2018-07-23] MEDS ORDERED: NA BICARBONATE 8.4% 50 ML SYG IV STA (17:01)
[2018-07-23] MEDS ORDERED: NA BICARBONATE 8.4% 50 ML SYG ONE (17:08)
[2018-07-23] MEDS: SODIUM BICARBONATE (IV ADD) 125 MEQ in DEXTROSE 5% 1,000 ML IV SCH (17:15)
--- NOTE | 2018-07-23 17:38 | CONS ---
DATE OF ADMISSION: 07/22/2018 DATE OF CONSULTATION: 07/23/2018 REQUESTING PHYSICIAN: Trinity Elena MD REASON FOR CONSULTATION: Pancytopenia. Dear Dr. Elena: Thank you very much for asking me to see this very interesting and pleasant patient in hematologic co nsultation. HISTORY OF PRESENT ILLNESS: As you know, Ms. 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 The patient was admitted to [facility] on 07/22/2018 after being brought to the [facility] room because of confusion, altered mental status. Apparently, the patient was to go dialysis on that day, but it was not felt that her physical state with such that she could tolerate dialysis. She was brought to [facility]. On admission, the patient had a white count of 12,500 with an absolute neutrophil count of 9100, hemo globin was 9.3, hematocrit 30, MCV 120, MCH 37.2, MCHC 31, RDW 26.1, and platelet count 72,000. Sinc e that time, the patient's hemoglobin has dropped to 6.9, and platelet count of 26,000. Today, the M CV is 115.5. Also on admission, the patient had a sodium of 136, potassium 3.1, creatinine 7.9, BUN 69, glucose wa s 25, lactate 9.1, total bilirubin 8 with a direct bilirubin of 5.7 and AST 68, ALT 37, and alkaline phosphatase 174. Troponin on admission was 0.140. The repeat troponin is 0.128 and again 0.190. CK is 286, CK-MB is 13.2. Today, the patient's sodium is 139, potassium 3.7, carbon dioxide 7.4, BUN 56, creatinine 6.09. Bilirubin is 8.4 today. AST 1196, ALT 354, alkaline phosphatase 102. Serum iron is 154, iron bindin g capacity 169, saturation 91%. Vitamin B12 level is greater than 1000 and folic acid level is great er than 20. LDH is 4059. A chest x-ray done on admission does show moderate cardiomegaly and mild pulmonary vascular congestio n. An ultrasound of the liver shows trace nonspecific perihepatic fluid. No evidence of biliary manoj puma dilatation. There is a decompressed gallbladder with nonspecific wall thickening. The patient did have significant hypotension and has required pressors. She has also been intubated and on ventilator support. The patient presently is receiving norepinephrine. Previously was on dop amine. Blood cultures showed no growth. The patient is presently receiving vancomycin and cefepime. ALLERGIES APPARENTLY INCLUDE ACETAMINOPHEN, CIPROFLOXACIN AND LEVOFLOXACIN, HEPARIN. MEDICATIONS: At home at the time of admission included folic acid, Renagel, diltiazem, apixaban. 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 The patient als o has end-stage renal disease and is on dialysis. It is unclear the etiology of the renal disease. The patient did have a renal biopsy performed in December 2012. This showed chronic tubulointerstitia l nephritis. There apparently was another report of a send out consultation, but I am unable to view that at the present time. The patient has also had the placement of a pacemaker. This apparently was due to complete heart blo ck and syncopal episodes. During this hospitalization, the patient did become unresponsive. She did require intubation, etc. It is at this time, the patient was started on IV pressors. PHYSICAL EXAMINATION: GENERAL: At this time reveals a well-developed but chronically ill-appearing female who is unrespons kamila at this time. VITAL SIGNS: Temperature is 97.2 axillary, pulse 72 per minute and regular, respirations 16, blood p ressure 92/67, pulse oximetry is 100% on mechanical ventilator with FIO2 of 30. SKIN: No ecchymosis, no petechiae or rashes. HEENT: Normocephalic. There is marked facial edema with periorbital edema. There is an NG tube in place and endotracheal tube in place. NECK: No jugular venous distention or thyroid enlargement. CHEST: No rhonchi, wheezes, rales or rubs. HEART: Regular sinus rhythm, no S3, S4 or murmurs. NODES: No palpable lymphadenopathy in any lymph node bearing area. BREASTS: There is a pacemaker in place in the patient's left anterior chest wall. ABDOMEN: Soft, no masses, no ascites. EXTREMITIES: No clubbing. No edema or cyanosis. NEUROLOGIC: Patient is sedated and unresponsive. The peripheral smear has been reviewed. There is macrocytosis of the red blood cells. These are rou nd macrocytes. There is no polychromasia. There are no fragmented red blood cells or spherocytes. There are no teardrop-shaped red blood cells and no target cells. White blood cells are slightly inc reased but normal in distribution. There are no immature granulocytes, no hypersegmented polys, and no nucleated red blood cells. Lymphocytes are normal in number and morphology. There are no atypica l or "reactive" lymphocytes. Platelets are moderately to markedly decreased. There are large platel et forms seen and some spontaneous platelet aggregation, meaning that the patient's platelet count is likely higher than that determined by the automated equipment. DISCUSSION: This patient does have end-stage renal failure and has been on dialysis for approximatel y 4 or 5 years. It is unclear what the etiology of the renal failure actually is. The patient did h ave a renal biopsy in 2012 and the available pathology today does not demonstrate an obvious cause. The patient also has retinitis pigmentosa with resultant blindness. Previous studies done on previous admission did demonstrate a positive DELANEY at a titer of 1:80. At e same time, the patient did have positive smooth muscle antibodies also with a titer of 1:80. Antim itochondrial antibodies were negative. The patient's presently abnormal liver functions are likely related to these prolonged period of hypo tension and decreased perfusion of the liver. Patient in the past, however, has had some hepatic dys function and I feel there is a likelihood that this patient does have autoimmune hepatitis. This is likely related to underlying collagen vascular disorder. The patient does have significant thrombocytopenia at this time, but on admission the patient's plate let count was 72,000. This is typical for the patient's platelet count in the past. The increased M PV is consistent with a population of young platelets suggesting the patient does have some periphera l platelet destruction which may be on the basis of antibodies. The patient has not been demonstrate d to have splenomegaly on previous scans and the spleen is not palpable at this time. The patient does have significant prolongation of protime and PTT on admission. It is unclear if thi s is related to use of broad spectrum antibiotics or due to apixaban. The patient apparently, talat r, does not get heparin with dialysis. It is possible that the prolongation of protime and PTT may be on the basis of inhibitor such as lupu s anticoagulant. As noted, the patient is on apixaban and it is unclear why this was initiated. The patient on admission to the hospital had been on rifampin. Records in the chart states that the patient was hospitalized at [facility] in [place] for approximately 10 days. The kaushal ent was admitted there on 07/05/2018 when the patient had episode of possible seizure activity after hemodialysis. Patient was found to be febrile with a temperature 105 on admission to the hospital. At that time, she was not hypotensive, had a white count of 8300, hemoglobin 10.1. It is unclear wha t the platelet count was. Again, CT scan of the abdomen and pelvis revealed gallbladder wall thicken ing and trace ascites with some mild mesenteric edema. There are atrophic kidneys. There is no sple nomegaly. Blood cultures apparently were positive for methicillin-sensitive Staph aureus. The patient was hosp italized for approximately 10 days. It is unclear what antibiotics the patient did receive there but she was discharged on rifampin. This may result in some degree of vitamin K deficiency coupled with the patient having had a poor intake. At this time, the patient does not require platelet transfusions. Would hold platelet transfusions u nless the patient's platelet count drops below 10,000 or there is clinical bleeding. The patient's drop in hemoglobin is likely due to hydration. There is no evidence of hemolysis at th is time. The marked macrocytosis is likely related to the patient's underlying liver disease. As no lucinda, there is no evidence of megaloblastic process. There is no polychromasia to suggest the reticul ocytosis. As noted, I do feel this patient may have an underlying autoimmune disorder with autoimmune hepatitis . This may also be the cause of the patient's renal disease as well as underlying chronic thrombocyt openia. We will request a liver and kidney microsomal antibody level, as well as liver cytosol antigen to det ermine if this patient does in fact have an autoimmune hepatitis. I have requested a 50/50 PTT to rule out the possibility of underlying lupus anticoagulant. If there is correction of the protime and PTT when mixed with normal plasma that would suggest a factor defic iency likely on the basis of vitamin K deficiency. Other studies requested including lupus anticoagulant, anticardiolipin antibodies as well. We will also obtain quantitative immunoglobulins as well as immunofixation. Patients with autoimmune hepatitis often have an elevated IgG and a decreased IgA. There is some evidence of consumptive coagulopathy given the drop in platelets, as well as fibrinogen . We will request a repeat protime, PTT and fibrinogen in the a.m. As mentioned, I do feel there may be some degree of autoimmune etiologies of this patient's thrombocy topenia and therefore we will request platelet antibodies as well. Dictated By: JENIFER MARQUES MD SR/NTS Conf#: [id number] DID#: [id number] CC: GIOVANNA TSANG; TRINITY ELENA MD;*[facility]*
[2018-07-23] MEDS ORDERED: ALBUMIN HUMAN 25% 100 ML IV PRN (18:00)
--- NOTE | 2018-07-23 22:51 | CONS ---
DATE OF ADMISSION: 07/22/2018 DATE OF CONSULTATION: Infectious disease consultation for Dr. Kulwant Swenson. HISTORY OF PRESENT ILLNESS: The patient is a 27-year-old Indo- female, [place], who was ad mitted from home, brought in by rescue ambulance with elevated temperature of 105 degrees. White cou nt of 8300. Shortly after admission, the patient became hypotensive and had a pulseless electrical a ctivity induced cardiac arrest. The patient was successfully resuscitated, put on a respirator and t ransferred to the intensive care unit. 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 The patient was also on Zithromax. After admission to [facility], the patient was noted to have a urinalysis had +1 protein, negative nitrite 28 white cells, 6 red cells. Chest x-ray revealed enlarged heart with patchy ground glass opacities at the base. She had elevation of liver enzymes and developed thrombocytopenia originally coming in with 72,000 and curren tly dropping to 52,000, 26,000, 29,000 and most recently recording is 19. During this early time, oswaldo worthy had a lactic acidosis. She has been originally supported with at least 2 pressors and now has been weaned down to having norepinephrine 2 mcg per minute. The patient's bilirubin more recently is 8.4 and the gallbladder appears to be contracted, but not infected and maximally empty. PHYSICAL EXAMINATION: VITAL SIGNS: Presently, the patient's vital signs are stable. Her pulse is 79 and regular. She is being supported by a hypothermic blanket maintaining her body temperature at 70. She is at 97. GENERAL: She is currently undergoing hemodialysis at time of examination. The patient is not respon sive. Her eyes were taped down. The patient appears to be her stated age. NECK: There is no jugular venous distention. LUNGS: Clear to auscultation. She is intubated orally. There are no rales or rhonchi on either cristhian e. HEART: Rapid and regular. ABDOMEN: Firm. Occasional bowel sound. EXTREMITIES: Reveal trace pedal edema. She does not have any hand edema. There is an IV in the rig ht hand. There is a dialysis catheter in the right upper extremity. INITIAL IMPRESSION: 1. Pulseless electrical activity cardiac arrest. 2. Non-ST segment myocardial infarction. 3. Hypotension. 4. Pulmonary edema. 5. End-stage renal disease. 6. Septic shock. 7. Lactic acidosis. 8. Shock liver. 9. Thrombocytopenia. RECOMMENDATIONS: The patient has recently stabilized. I would continue vancomycin. Discontinue cef epime just for the sake of completeness of hepatitis C serology. Thank you for referring this interesting patient, Dr. Elena. I have seen this patient for Dr. Kulwant Swenson. Dictated By: Rolando CHAVES MD EC/NTS Conf#: [id number] DID#: [id number] CC: TRINITY ELENA MD;*End*
[2018-07-24] VITALS (97 sets, daily range): BP systolic 88–228; BP diastolic 53–104; PULSE 58–130; RESP 0–27
[2018-07-24] MEDS: ACCU-CHEK XX SCH ×6 (01:00→20:56)
[2018-07-24] MEDS ORDERED: ACCU-CHEK XX SCH (02:00)
[2018-07-24] MEDS ORDERED: GLUCOSE GEL 15 GRAM TUBE BUCCAL PRN (02:30)
[2018-07-24] MEDS ORDERED: GLUCOSE GEL 15 GRAM TUBE PO PRN ×2 (02:30)
[2018-07-24] MEDS ORDERED: GLUCAGON 1 MG INJ IM PRN (02:30)
[2018-07-24] MEDS ORDERED: DEXTROSE 50% 50 ML SYRINGE IV ONE ×2 (02:30)
[2018-07-24] MEDS ORDERED: DEXTROSE 50% 50 ML SYRINGE IV PRN (02:30)
[2018-07-24] MEDS: DEXTROSE 10% IV SCH ×3 (02:57→23:50)
[2018-07-24] MEDS: SODIUM BICARBONATE IV SCH ×3 (02:57→23:50)
[2018-07-24] MEDS: MIDAZOLAM (DRIP) 50 mg/50 mL 50 ML IV SCH (05:50)
[2018-07-24] MEDS: OCULAR LUBRICANT 3.5 GM OPH OINT BOTH EYES SCH ×4 (05:54→23:51)
[2018-07-24] MEDS: ARTIFICIAL TEARS 15 ML OPH BOTH EYES SCH ×4 (05:54→23:51)
[2018-07-24] MEDS ORDERED: PANTOPRAZOLE 40 MG INJ IV SCH (06:00)
[2018-07-24] MEDS: HYDROCORTISONE 250 MG INJ IV SCH ×3 (06:16→21:05)
[2018-07-24] MEDS: MULTIVIT/CA CARB/B CMPLX/FA TAB PO SCH (08:29)
[2018-07-24] MEDS: DOCUSATE SODIUM 10 MG/ML (10ML CUP) NGT SCH ×2 (08:29→20:55)
[2018-07-24] MEDS: SEVELAMER CARBONATE 800 MG TABLET PO SCH ×3 (08:29→19:03)
--- NOTE | 2018-07-24 08:30 | CONS ---
Assessment/Plan Assessment/Plan Assessment/Plan (Daily) Chest x-ray from today is pending. Ventilator setting; AC of 16, tidal volume 400, PEEP of 5, 30% FiO2. Patient is currently on Versed 3 mg/h, Levophed 1 zeyad per minute. Assessment and recommendations; 1. Patient admitted with severe hypoglycemia with brief episode of cardiac arrest requiring CPR with recovery of adequate mental status not meeting criteria for hypothermia protocol. 2. Interval correction of hypotension, currently on low-dose Levophed currently being weaned off. 3. History of diabetes. 4. Severe metabolic acidosis on admission with interval resolution. 5. Intravascular volume depletion. 6. Anemia and severe thrombocytopenia. 7. Sepsis. Currently on appropriate antimicrobial regimen. 8. History of cardiac arrhythmia in the past status post pacemaker placement. 9. History of cardiomyopathy. 10. Essentially dependent state. 11. History of retinitis pigmentosa. 12. Acute pancreatitis. Continue current supportive care. Discontinue further sedation to assess mental status. Hemodialysis per color finisher. Continue cefepime. Start TPN. Monitor serum lipase level. Patient may need CT abdomen once stable. I did have a detailed discussion with the patient's brother at bedside as well as patient's mother and answered all their questions. If the patient does not respond appropriately after discontinuation of sedation CT scan of head will be ordered to rule out intracranial bleed. 40 minutes of critical care time was spent evaluating patient. Consultation Date/Type/Reason Admit Date/Time July 22, 2018 at 09:09 Initial Consult Date 07/23/18 Type of Consult Pulmonary/critical care Pulmonary consult requested for evaluation of respiratory failure. Patient is a 27-year-old female who was brought into the hospital with confusion. Patient was found to be severely hypoglycemic but because of hemodynamic instability and poor mental status she was intubated by the ER physician. Patient also was in PEA and required CPR lasting 10 minutes. There was spontaneous recovery of mental status not requiring hypothermia protocol. Patient however has remained mildly hypotensive requiring low-dose Levophed. By the time I saw her, patient is orally intubated and sedated. History was obtained from medical records as well as from patient's sister who was present in the room. According to the patient's sister patient also had similar episode about 2 weeks ago requiring intubation at another facility. Past medical history; 1. History of end-stage renal disease for the last 5 years. 2. History of retinal pigmentosa. 3. Patient had an episode of febrile seizure 2 weeks ago. Without any prior history of seizure activity. 4. Patient is heavily dependent on ADLs. 5. History of diabetes. 6. History of DVT. Patient however has been off anticoagulation per her farmworker cranberry recommendations. Medications; reviewed. Patient is currently on Levophed 2 mics per minute, V ersed 4 mg/h, insulin drip 1 2units/h. Other medications were reviewed as well. Allergies; as outlined above. Family history; she is single. She lives with her family at home. Occupational history; patient is on disability. Review of system; unable to be obtained. General exam; young female, appears quite emaciated. Orally intubated. Sedated. Currently in no distress. Requesting Provider: TRINITY ELENA Date/Time of Note DATE: 07/24/18 TIME: 08:26 24 HR Interval Summary Free Text/Dictation Patient's condition is critical. Patient however has improved hemodynamically. General exam; young female, appears quite emaciated, orally intubated, sedated, currently in no distress. Exam/Review of Systems Exam Vitals Vital Signs Date Temp Pulse Resp B/P (MAP) Pulse Ox O2 O2 Flow FiO2 Time Delivery Rate 07/24/18 93 16 100 30 05:34 07/23/18 120/80 21:23 (93) 07/23/18 Mechanical 18:00 Ventilator 07/23/18 97.2 15:45 07/22/18 2.0 10:00 Intake and Output 07/23/18 07/23/18 07/24/18 1515:00 23:00 07:00 IntakeIntake Total 837.25 ml 452.00 ml 78.35 ml OutputOutput Total 500 ml BalanceBalance 837.25 ml -48.00 ml 78.35 ml Exam HEENT exam; supple neck, positive JVD. No lymphadenopathy. Midline trachea. No thyromegaly. Orally intubated. Patient has fair dentition. No neck masses. Pupils are small bilaterally. Chest exam; diminished but clear breath sounds. S1-S2 audible, no murmurs. Pacemaker in left chest wall. Rhythm is paced. Abdomen exam; soft, scaphoid. No organomegaly. Bowel sounds are audible. Extremity exam; no peripheral edema. Patient has a patchy ecchymosis. CLINICAL NUTRITIONIST exam; patient is sedated. Results Result Diagram: 07/24/18 0410 07/24/18 0410 Results 24hrs Laboratory Tests Test 07/23/18 09:06 07/23/18 10:03 07/23/18 11:49 07/23/18 11:52 Bedside Glucose 80 85 Creatine Kinase 238 H Creatine Kinase 8.6 Index Creatinine 20.40 H Kinase MB (Mass) Troponin I 0.234 *H Platelet Count 21 *L Prothrombin Time 36.8 H Prothrombin Time 2.9 Ratio INR 3.72 International Normalized Ratio Activated 44.7 H Partial Thrombop last Time Thrombin Time 15.8 Fibrinogen 202.0 #L D-Dimer > 92986.00 H Sodium Level 142 Potassium Level 4.6 Chloride Level 101 Carbon Dioxide 10 L Level Anion Gap 31 H Blood Urea 23 H Nitrogen Creatinine 2.92 H Est Glomerular 19 L Filtrat Rate mL/min Glucose Level 82 # Calcium Level 8.0 L Lactate 4059 H Dehydrogenase Test 07/23/18 11:54 07/23/18 16:07 07/23/18 16:37 07/23/18 18:20 Bedside Glucose 78 111 Blood Gas Blood arterial Specimen Source Arterial Blood 07/23/2018 4:30: Date Drawn 04 PM Arterial Blood 7.029 *L pH (Temp corrected) Arterial Blood 21.5 L pCO2 (Temp correct) Arterial Blood 146.0 H pO2 (Temp corrected) Arterial Blood 5.5 *L HCO3 Arterial Blood -23.6 L Base Excess Arterial Blood 98.0 Oxygen Saturatio n Newton Test ACCEPTAB Arterial Blood Right Radial Gas Puncture Site Arterial 0.3 Blood Carboxyhem oglobin Arterial Blood 0.3 Methemoglobin Blood Gas A-a O2 42.6 H Differential Oxyhemoglobin 97.4 Percent Blood Gas 37.0 Temperature Blood Gas 16.0 Respiration Rate Blood Gas Actual 21 Respiration Rate Blood Gas VENT - AC Modality FiO2 30.0 Blood Gas Tidal 400.0 Volume Blood Gas Low 5.0 PEEP Setting Blood Gas JUNI JACKSON Critical Value Read Back Blood Gas [employer] SUPERINTENDENT Notified Whom Blood Gas 07/23/2018 4:53: Notified Time 09 PM White Blood 12.4 H Count Red Blood Count 2.25 #L Hemoglobin 7.7 L Hematocrit 23.6 L Mean Corpuscular 104.9 H Volume Mean Corpuscular 34.2 H Hemoglobin Mean Corpuscular 32.6 Hemoglobin Isadora nt Red Cell 27.4 H Distribution Width Platelet Count 19 #*L Mean Platelet 14.8 H Volume Immature 0.900 H Granulocytes % Neutrophils % 85.8 H Lymphocytes % 6.1 L Monocytes % 7.1 Eosinophils % 0.0 Basophils % 0.1 Nucleated Red 1.1 H Blood Cells % Immature 0.110 H Granulocytes # Neutrophils # 10.6 H Lymphocytes # 0.8 Monocytes # 0.9 Eosinophils # 0.0 Basophils # 0.0 Nucleated Red 0.1 H Blood Cells # Activated 43.8 H Partial Thrombop last Time Mix PTT Normal 33.2 Plasma Immediate Mix PTT Normal 36.5 Plasma 1 Hour Immunoglobulin A 132 Immunoglobulin G 741 Immunoglobulin M 71 Test 07/23/18 21:07 07/24/18 01:48 07/24/18 02:49 07/24/18 04:10 Bedside Glucose 71 20 *L 181 White Blood 12.3 H Count Red Blood Count 2.32 L Hemoglobin 7.8 L Hematocrit 24.0 L Mean Corpuscular 103.4 H Volume Mean Corpuscular 33.6 H Hemoglobin Mean Corpuscular 32.5 Hemoglobin Isadora nt Red Cell 28.7 H Distribution Width Platelet Count 18 *L Mean Platelet Volume Immature 0.700 H Granulocytes % Neutrophils % 82.4 H Lymphocytes % 6.2 L Monocytes % 10.6 Eosinophils % 0.0 Basophils % 0.1 Nucleated Red 3.7 H Blood Cells % Immature 0.090 H Granulocytes # Neutrophils # 10.1 H Lymphocytes # 0.8 Monocytes # 1.3 H Eosinophils # 0.0 Basophils # 0.0 Nucleated Red 0.5 H Blood Cells # Prothrombin Time 42.3 H Prothrombin Time 3.3 Ratio INR 4.45 International Normalized Ratio Activated 45.1 H Partial Thrombop last Time Fibrinogen 185.0 L Sodium Level 143 Potassium Level 4.0 Chloride Level 94 L Carbon Dioxide 14 L Level Anion Gap 35 H Blood Urea 13 # Nitrogen Creatinine 1.81 #H Est Glomerular 33 L Filtrat Rate mL/min Glucose Level 128 # Lactic Acid > 24.0 *H Level Calcium Level 8.4 Total Bilirubin 10.8 H Direct Bilirubin 8.20 H Indirect 2.6 H Bilirubin Aspartate Amino 1378 H Transf (AST/SGOT ) Alanine 420 H Aminotransferase (ALT/SGPT) Alkaline 71 Phosphatase Total Protein 6.3 Albumin 4.4 Lipase 5953 H Random 5.2 Vancomycin Level Test 07/24/18 04:50 07/24/18 05:00 07/24/18 05:11 Lab Scanned BLOOD TRANSFUSI Report ON Blood Gas Blood arterial Specimen Source Arterial Blood 07/24/2018 5:54: Date Drawn 46 AM Arterial Blood 7.403 pH (Temp corrected) Arterial Blood 24.3 L pCO2 (Temp correct) Arterial Blood 133.5 H pO2 (Temp corrected) Arterial Blood 14.8 L HCO3 Arterial Blood -8.8 L Base Excess Arterial Blood 98.6 H Oxygen Saturatio n Newton Test ACCEPTAB Arterial Blood Left Radial Gas Puncture Site Arterial 0.7 Blood Carboxyhem oglobin Arterial Blood 0.3 Methemoglobin Blood Gas A-a O2 51.9 H Differential Oxyhemoglobin 97.6 Percent Blood Gas 37.0 Temperature Blood Gas 16.0 Respiration Rate Blood Gas Actual 18 Respiration Rate Blood Gas VENT - AC Modality FiO2 30.0 Blood Gas Tidal 400.0 Volume Blood Gas Mean 13 Airway Pressure Blood Gas Low 5.0 PEEP Setting Blood Gas 35.0 Inspiratory Pressure Blood Gas XAVI BARCLAY Notified Whom Blood Gas 07/24/2018 6:03: Notified Time 24 AM Bedside Glucose 137 Medications Medication Current Medications Lorazepam (Ativan) 0.5 mg Q6H PRN IV .ANXIETY; Start 07/22/18 at 10:30 Ondansetron HCl (Zofran Inj) 4 mg Q6H PRN IV NAUSEA/VOMITING; Start 07/22/18 at 10:30 Aspirin (Aspirin) 81 mg DAILY PO ; Start 07/23/18 at 09:00; Status Hold Vancomycin HCl (Vanco Iv Per Pharmacy) VANCOMYCIN PER PHARMACY PER PROTOCOL XX ; Start 07/22/18 at 10:30 Multivit/Ca Carb/ B Cmplx/FA/Prenat (Lalita-Abigail) 1 tab DAILY PO Last admin istered on 07/23/18at 10:31; Admin Dose 1 TAB; Start 07/23/18 at 09:00 Dopamine HCl/ Dextrose 250 ml @ 2.205 mls/ hr TITRATE IV Last administered on 07/22/18at 11:31; Admin Dose 15.435 MLS/HR; Start 07/22/18 at 11:30 Phenylephrine HCl 250 ml @ 75 mls/hr TITRATE IV ; Start 07/22/18 at 12:00 Hydrocortisone (Solu-Cortef) 200 mg Q8 IV Last administered on 07/24/18at 06:16; Admin Dose 200 MG; Start 07/22/18 at 14:00 Acetaminophen (Tylenol Supp) 650 mg Q4H PRN NE TEMP > 37C; Start 07/22/18 at 12:30 Acetaminophen (Tylenol Liquid) 650 mg Q4H PRN PO TEMP > 37C; Start 07/22/18 at 12:30 Meperidine HCl (Demerol) 12.5 mg Q4H PRN IV POST OPERATIVE SHIVERING; Start 07/22/18 at 12:30 Meperidine HCl (Demerol) 25 mg Q4H PRN IV POST OPERATIVE SHIVERING; Start 07/22/18 at 12:30 Eye Lubricant (Akwa Oint) 1 applic Q6 BOTH EYES Last administered on 07/24/18at 05:54; Admin Dose 1 APPLIC; Start 07/22/18 at 18:00 Eye Lubricant (Artificial Tears Oph) 2 drop Q6 BOTH EYES Last administered on 07/24/18at 05:54; Admin Dose 2 DROP; Start 07/22/18 at 18:00 Norepinephrine 250 ml @ 1.875 mls/ hr TITRATE IV Last administered on 07/23/18at 01:01; Admin Dose 22.5 MLS/HR; Start 07/22/18 at 13:00 Docusate Sodium (Colace Liquid Cup) 100 mg BID NGT Last administered on 07/23/18at 22:05; Admin Dose 100 MG; Start 07/22/18 at 22:00 Midazolam HCl 50 ml @ 1 mls/hr TITRATE IV Last administered on 07/24/18at 05:50; Admin Dose 3 MLS/HR; Start 07/23/18 at 02:00 Sevelamer Carbonate (Renvela) 800 mg WITH MEALS PO ; Start 07/23/18 at 07:35 Famotidine (Pepcid) 20 mg DAILY NGT ; Start 07/23/18 at 12:00 Diagnostic Test (Pha) (Accu-Chek) 1 ea Q4 XX Last administered on 07/23/18at 17:04; Admin Dose 1 EA; Start 07/23/18 at 13:00 Albumin Human 100 ml @ 100 mls/hr WITH DIALYSIS PRN IV SBP <90 DURING DIALYSIS Last administered on 07/23/18at 18:07; Admin Dose 100 MLS/HR; Start 07/23/18 at 18:00 Miscellaneous Information (* Miscellaneous Pharmacy Order) Treatment of Hypoglycemia: 1.BG 51... Per protocol XX ; Start 07/24/18 at 02:00 Sodium Bicarbonate 125 meq/Dextrose 1,000 ml @ 50 mls/hr Q20H IV Last administered on 07/24/18at 02:57; Admin Dose 50 MLS/HR; Start 07/24/18 at 03:00 Miscellaneous Information 1 ea NOTE XX ; Start 07/24/18 at 02:30 Glucose (Glutose) 15 gm Q15M PRN PO DECREASED GLUCOSE; Start 07/24/18 at 02:30 Glucose (Glutose) 22.5 gm Q15M PRN PO DECREASED GLUCOSE; Start 07/24/18 at 02:30 Dextrose (D50w Syringe) 25 ml Q15M PRN IV DECREASED GLUCOSE; Start 07/24/18 at 02:30 Dextrose (D50w Syringe) 50 ml Q15M PRN IV DECREASED GLUCOSE; Start 07/24/18 at 02:30 Glucagon (Glucagen) 1 mg Q15M PRN IM DECREASED GLUCOSE; Start 07/24/18 at 02:30 Glucose (Glutose) 15 gm Q15M PRN BUCCAL DECREASED GLUCOSE; Start 07/24/18 at 02:30 Vancomycin/Sodium Chloride 250 ml @ 125 mls/hr ONCE IVPB ; Start 07/24/18 at 09:00; Stop 07/24/18 at 10:59 AYSE CAMARGO July 24, 2018 08:30
[2018-07-24] MEDS: FAMOTIDINE 20 MG TAB NGT SCH (08:33)
[2018-07-24] MEDS ORDERED: VANCOMYCIN 750 MG (PMX) 250 ML IVPB SCH (09:00)
--- NOTE | 2018-07-24 09:02 | PN ---
Date/Time of Note Date/Time of Note DATE: 07/24/18 TIME: 08:54 Assessment/Plan VTE Prophylaxis Risk score [place]from [facility] [place] risk: 6 SCD applied (from [facility] [place] Yes SCD contraindicated: other Pharmacological prophylaxis: NA/contraindicated Pharm contraindication: thrombocytopenia Lines/Catheters IV Catheter Type (from [facility]): A Line Urinary Cath still in place: No Assessment/Plan Assessment/Plan Thrombocytopenia is stable at [address] Astorga has ordered a number of studies to look for autoimmune hepatitis and ITP but results are pending. Hgb is 7.8. Transfusion is not ordered now but she will need to be monitored. Note that PTT was mildly prolonged but there is a question as to whether heparin is present. Will repeat studies in the morning. Result Diagram: 07/24/1840907/24/180 Results 24hrs Laboratory Tests Test 07/23/18 09:06 07/23/18 10:03 07/23/18 11:49 07/23/18 11:52 Bedside Glucose 80 85 Creatine Kinase 238 H Creatine Kinase 8.6 Index Creatinine 20.40 H Kinase MB (Mass) Troponin I 0.234 *H Platelet Count 21 *L Prothrombin Time 36.8 H Prothrombin Time 2.9 Ratio INR 3.72 International Normalized Ratio Activated 44.7 H Partial Thrombop last Time Thrombin Time 15.8 Fibrinogen 202.0 #L D-Dimer > 95057.00 H Sodium Level 142 Potassium Level 4.6 Chloride Level 101 Carbon Dioxide 10 L Level Anion Gap 31 H Blood Urea 23 H Nitrogen Creatinine 2.92 H Est Glomerular 19 L Filtrat Rate mL/min Glucose Level 82 # Calcium Level 8.0 L Lactate 4059 H Dehydrogenase Test 07/23/18 11:54 07/23/18 16:07 07/23/18 16:37 07/23/18 18:20 Bedside Glucose 78 111 Blood Gas Blood arterial Specimen Source Arterial Blood 07/23/2018 4:30: Date Drawn 04 PM Arterial Blood 7.029 *L pH (Temp corrected) Arterial Blood 21.5 L pCO2 (Temp correct) Arterial Blood 146.0 H pO2 (Temp corrected) Arterial Blood 5.5 *L HCO3 Arterial Blood -23.6 L Base Excess Arterial Blood 98.0 Oxygen Saturatio n Newton Test ACCEPTAB Arterial Blood Right Radial Gas Puncture Site Arterial 0.3 Blood Carboxyhem oglobin Arterial Blood 0.3 Methemoglobin Blood Gas A-a O2 42.6 H Differential Oxyhemoglobin 97.4 Percent Blood Gas 37.0 Temperature Blood Gas 16.0 Respiration Rate Blood Gas Actual 21 Respiration Rate Blood Gas VENT - AC Modality FiO2 30.0 Blood Gas Tidal 400.0 Volume Blood Gas Low 5.0 PEEP Setting Blood Gas JUNI JACKSON Critical Value Read Back Blood Gas [employer] Notified Whom Blood Gas 07/23/2018 4:53: Notified Time 09 PM White Blood 12.4 H Count Red Blood Count 2.25 #L Hemoglobin 7.7 L Hematocrit 23.6 L Mean Corpuscular 104.9 H Volume Mean Corpuscular 34.2 H Hemoglobin Mean Corpuscular 32.6 Hemoglobin Isadora nt Red Cell 27.4 H Distribution Width Platelet Count 19 #*L Mean Platelet 14.8 H Volume Immature 0.900 H Granulocytes % Neutrophils % 85.8 H Lymphocytes % 6.1 L Monocytes % 7.1 Eosinophils % 0.0 Basophils % 0.1 Nucleated Red 1.1 H Blood Cells % Immature 0.110 H Granulocytes # Neutrophils # 10.6 H Lymphocytes # 0.8 Monocytes # 0.9 Eosinophils # 0.0 Basophils # 0.0 Nucleated Red 0.1 H Blood Cells # Activated 43.8 H Partial Thrombop last Time Mix PTT Normal 33.2 Plasma Immediate Mix PTT Normal 36.5 Plasma 1 Hour Immunoglobulin A 132 Immunoglobulin G 741 Immunoglobulin M 71 Test 07/23/18 21:07 07/24/18 01:48 07/24/18 02:49 07/24/18 04:10 Bedside Glucose 71 20 *L 181 White Blood 12.3 H Count Red Blood Count 2.32 L Hemoglobin 7.8 L Hematocrit 24.0 L Mean Corpuscular 103.4 H Volume Mean Corpuscular 33.6 H Hemoglobin Mean Corpuscular 32.5 Hemoglobin Isadora nt Red Cell 28.7 H Distribution Width Platelet Count 18 *L Mean Platelet Volume Immature 0.700 H Granulocytes % Neutrophils % 82.4 H Lymphocytes % 6.2 L Monocytes % 10.6 Eosinophils % 0.0 Basophils % 0.1 Nucleated Red 3.7 H Blood Cells % Immature 0.090 H Granulocytes # Neutrophils # 10.1 H Lymphocytes # 0.8 Monocytes # 1.3 H Eosinophils # 0.0 Basophils # 0.0 Nucleated Red 0.5 H Blood Cells # Prothrombin Time 42.3 H Prothrombin Time 3.3 Ratio INR 4.45 International Normalized Ratio Activated 45.1 H Partial Thrombop last Time Fibrinogen 185.0 L Sodium Level 143 Potassium Level 4.0 Chloride Level 94 L Carbon Dioxide 14 L Level Anion Gap 35 H Blood Urea 13 # Nitrogen Creatinine 1.81 #H Est Glomerular 33 L Filtrat Rate mL/min Glucose Level 128 # Lactic Acid > 24.0 *H Level Calcium Level 8.4 Total Bilirubin 10.8 H Direct Bilirubin 8.20 H Indirect 2.6 H Bilirubin Aspartate Amino 1378 H Transf (AST/SGOT ) Alanine 420 H Aminotransferase (ALT/SGPT) Alkaline 71 Phosphatase Total Protein 6.3 Albumin 4.4 Lipase 5953 H Random 5.2 Vancomycin Level Test 07/24/18 04:50 07/24/18 05:00 07/24/18 05:11 Lab Scanned BLOOD TRANSFUSI Report ON Blood Gas Blood arterial Specimen Source Arterial Blood 07/24/2018 5:54: Date Drawn 46 AM Arterial Blood 7.403 pH (Temp corrected) Arterial Blood 24.3 L pCO2 (Temp correct) Arterial Blood 133.5 H pO2 (Temp corrected) Arterial Blood 14.8 L HCO3 Arterial Blood -8.8 L Base Excess Arterial Blood 98.6 H Oxygen Saturatio n Newton Test ACCEPTAB Arterial Blood Left Radial Gas Puncture Site Arterial 0.7 Blood Carboxyhem oglobin Arterial Blood 0.3 Methemoglobin Blood Gas A-a O2 51.9 H Differential Oxyhemoglobin 97.6 Percent Blood Gas 37.0 Temperature Blood Gas 16.0 Respiration Rate Blood Gas Actual 18 Respiration Rate Blood Gas VENT - AC Modality FiO2 30.0 Blood Gas Tidal 400.0 Volume Blood Gas Mean 13 Airway Pressure Blood Gas Low 5.0 PEEP Setting Blood Gas 35.0 Inspiratory Pressure Blood Gas XAVI BARCLAY Notified Whom Blood Gas 07/24/2018 6:03: Notified Time 24 AM Bedside Glucose 137 Subjective 24 Hr Interval Summary Free Text/Dictation Pt is currently intubated. Chart reviewed. 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) Gastrointestinal: soft, non-tender Neurological: other (sedated) Results Results 24hrs Laboratory Tests Test 07/23/18 09:06 07/23/18 10:03 07/23/18 11:49 07/23/18 11:52 Bedside Glucose 80 85 Creatine Kinase 238 H Creatine Kinase 8.6 Index Creatinine 20.40 H Kinase MB (Mass) Troponin I 0.234 *H Platelet Count 21 *L Prothrombin Time 36.8 H Prothrombin Time 2.9 Ratio INR 3.72 International Normalized Ratio Activated 44.7 H Partial Thrombop last Time Thrombin Time 15.8 Fibrinogen 202.0 #L D-Dimer > 10712.00 H Sodium Level 142 Potassium Level 4.6 Chloride Level 101 Carbon Dioxide 10 L Level Anion Gap 31 H Blood Urea 23 H Nitrogen Creatinine 2.92 H Est Glomerular 19 L Filtrat Rate mL/min Glucose Level 82 # Calcium Level 8.0 L Lactate 4059 H Dehydrogenase Test 07/23/18 11:54 07/23/18 16:07 07/23/18 16:37 07/23/18 18:20 Bedside Glucose 78 111 Blood Gas Blood arterial Specimen Source Arterial Blood 07/23/2018 4:30: Date Drawn 04 PM Arterial Blood 7.029 *L pH (Temp corrected) Arterial Blood 21.5 L pCO2 (Temp correct) Arterial Blood 146.0 H pO2 (Temp corrected) Arterial Blood 5.5 *L HCO3 Arterial Blood -23.6 L Base Excess Arterial Blood 98.0 Oxygen Saturatio n Newton Test ACCEPTAB Arterial Blood Right Radial Gas Puncture Site Arterial 0.3 Blood Carboxyhem oglobin Arterial Blood 0.3 Methemoglobin Blood Gas A-a O2 42.6 H Differential Oxyhemoglobin 97.4 Percent Blood Gas 37.0 Temperature Blood Gas 16.0 Respiration Rate Blood Gas Actual 21 Respiration Rate Blood Gas VENT - AC Modality FiO2 30.0 Blood Gas Tidal 400.0 Volume Blood Gas Low 5.0 PEEP Setting Blood Gas JUNI JACKSON Critical Value Read Back Blood Gas [employer] Notified Whom Blood Gas 07/23/2018 4:53: Notified Time 09 PM White Blood 12.4 H Count Red Blood Count 2.25 #L Hemoglobin 7.7 L Hematocrit 23.6 L Mean Corpuscular 104.9 H Volume Mean Corpuscular 34.2 H Hemoglobin Mean Corpuscular 32.6 Hemoglobin Isadora nt Red Cell 27.4 H Distribution Width Platelet Count 19 #*L Mean Platelet 14.8 H Volume Immature 0.900 H Granulocytes % Neutrophils % 85.8 H Lymphocytes % 6.1 L Monocytes % 7.1 Eosinophils % 0.0 Basophils % 0.1 Nucleated Red 1.1 H Blood Cells % Immature 0.110 H Granulocytes # Neutrophils # 10.6 H Lymphocytes # 0.8 Monocytes # 0.9 Eosinophils # 0.0 Basophils # 0.0 Nucleated Red 0.1 H Blood Cells # Activated 43.8 H Partial Thrombop last Time Mix PTT Normal 33.2 Plasma Immediate Mix PTT Normal 36.5 Plasma 1 Hour Immunoglobulin A 132 Immunoglobulin G 741 Immunoglobulin M 71 Test 07/23/18 21:07 07/24/18 01:48 07/24/18 02:49 07/24/18 04:10 Bedside Glucose 71 20 *L 181 White Blood 12.3 H Count Red Blood Count 2.32 L Hemoglobin 7.8 L Hematocrit 24.0 L Mean Corpuscular 103.4 H Volume Mean Corpuscular 33.6 H Hemoglobin Mean Corpuscular 32.5 Hemoglobin Isadora nt Red Cell 28.7 H Distribution Width Platelet Count 18 *L Mean Platelet Volume Immature 0.700 H Granulocytes % Neutrophils % 82.4 H Lymphocytes % 6.2 L Monocytes % 10.6 Eosinophils % 0.0 Basophils % 0.1 Nucleated Red 3.7 H Blood Cells % Immature 0.090 H Granulocytes # Neutrophils # 10.1 H Lymphocytes # 0.8 Monocytes # 1.3 H Eosinophils # 0.0 Basophils # 0.0 Nucleated Red 0.5 H Blood Cells # Prothrombin Time 42.3 H Prothrombin Time 3.3 Ratio INR 4.45 International Normalized Ratio Activated 45.1 H Partial Thrombop last Time Fibrinogen 185.0 L Sodium Level 143 Potassium Level 4.0 Chloride Level 94 L Carbon Dioxide 14 L Level Anion Gap 35 H Blood Urea 13 # Nitrogen Creatinine 1.81 #H Est Glomerular 33 L Filtrat Rate mL/min Glucose Level 128 # Lactic Acid > 24.0 *H Level Calcium Level 8.4 Total Bilirubin 10.8 H Direct Bilirubin 8.20 H Indirect 2.6 H Bilirubin Aspartate Amino 1378 H Transf (AST/SGOT ) Alanine 420 H Aminotransferase (ALT/SGPT) Alkaline 71 Phosphatase Total Protein 6.3 Albumin 4.4 Lipase 5953 H Random 5.2 Vancomycin Level Test 07/24/18 04:50 07/24/18 05:00 07/24/18 05:11 Lab Scanned BLOOD TRANSFUSI Report ON Blood Gas Blood arterial Specimen Source Arterial Blood 07/24/2018 5:54: Date Drawn 46 AM Arterial Blood 7.403 pH (Temp corrected) Arterial Blood 24.3 L pCO2 (Temp correct) Arterial Blood 133.5 H pO2 (Temp corrected) Arterial Blood 14.8 L HCO3 Arterial Blood -8.8 L Base Excess Arterial Blood 98.6 H Oxygen Saturatio n Newton Test ACCEPTAB Arterial Blood Left Radial Gas Puncture Site Arterial 0.7 Blood Carboxyhem oglobin Arterial Blood 0.3 Methemoglobin Blood Gas A-a O2 51.9 H Differential Oxyhemoglobin 97.6 Percent Blood Gas 37.0 Temperature Blood Gas 16.0 Respiration Rate Blood Gas Actual 18 Respiration Rate Blood Gas VENT - AC Modality FiO2 30.0 Blood Gas Tidal 400.0 Volume Blood Gas Mean 13 Airway Pressure Blood Gas Low 5.0 PEEP Setting Blood Gas 35.0 Inspiratory Pressure Blood Gas XAVI BARCLAY Notified Whom Blood Gas 07/24/2018 6:03: Notified Time 24 AM Bedside Glucose 137 Medications Medication Current Medications Lorazepam (Ativan) 0.5 mg Q6H PRN IV .ANXIETY; Start 07/22/18 at 10:30 Ondansetron HCl (Zofran Inj) 4 mg Q6H PRN IV NAUSEA/VOMITING; Start 07/22/18 at 10:30 Aspirin (Aspirin) 81 mg DAILY PO ; Start 07/23/18 at 09:00; Status Hold Vancomycin HCl (Vanco Iv Per Pharmacy) VANCOMYCIN PER PHARMACY PER PROTOCOL XX ; Start 07/22/18 at 10:30 Multivit/Ca Carb/ B Cmplx/FA/Prenat (Lalita-Abigail) 1 tab DAILY PO Last administere d on 07/24/18 08:29; Admin Dose 1 TAB; Start 07/23/18 at 09:00 Dopamine HCl/ Dextrose 250 ml @ 2.205 mls/ hr TITRATE IV Last administered on 07/22/18 11:31; Admin Dose 15.435 MLS/HR; Start 07/22/18 at 11:30 Phenylephrine HCl 250 ml @ 75 mls/hr TITRATE IV ; Start 07/22/18 at 12:00 Hydrocortisone (Solu-Cortef) 200 mg Q8 IV Last administered on 07/24/18 06:16; Admin Dose 200 MG; Start 07/22/18 at 14:00 Acetaminophen (Tylenol Supp) 650 mg Q4H PRN IN TEMP > 37C; Start 07/22/18 at 12:30 Acetaminophen (Tylenol Liquid) 650 mg Q4H PRN PO TEMP > 37C; Start 07/22/18 at 12:30 Meperidine HCl (Demerol) 12.5 mg Q4H PRN IV POST OPERATIVE SHIVERING; Start 07/22/18 at 12:30 Meperidine HCl (Demerol) 25 mg Q4H PRN IV POST OPERATIVE SHIVERING; Start 07/22/18 at 12:30 Eye Lubricant (Akwa Oint) 1 applic Q6 BOTH EYES Last administered on 07/24/18 08:34; Admin Dose 1 APPLIC; Start 07/22/18 at 18:00 Eye Lubricant (Artificial Tears Oph) 2 drop Q6 BOTH EYES Last administered on 07/24/18 08:34; Admin Dose 2 DROP; Start 07/22/18 at 18:00 Norepinephrine 250 ml @ 1.875 mls/ hr TITRATE IV Last administered on 07/23/18 01:01; Admin Dose 22.5 MLS/HR; Start 07/22/18 at 13:00 Docusate Sodium (Colace Liquid Cup) 100 mg BID NGT Last administered on 07/24/18 08:29; Admin Dose 100 MG; Start 07/22/18 at 22:00 Midazolam HCl 50 ml @ 1 mls/hr TITRATE IV Last administered on 07/24/18 05:50; Admin Dose 3 MLS/HR; Start 07/23/18 at 02:00 Sevelamer Carbonate (Renvela) 800 mg WITH MEALS PO Last administered on 07/24/18at 08:29; Admin Dose 800 MG; Start 07/23/18 at 07:35 Famotidine (Pepcid) 20 mg DAILY NGT Last administered on 07/24/18at 08:33; Admin Dose 20 MG; Start 07/23/18 at 12:00 Diagnostic Test (Pha) (Accu-Chek) 1 ea Q4 XX Last administered on 07/24/18at 08:29; Admin Dose 1 EA; Start 07/23/18 at 13:00 Albumin Human 100 ml @ 100 mls/hr WITH DIALYSIS PRN IV SBP <90 DURING DIALYSIS Last administered on 07/23/18at 18:07; Admin Dose 100 MLS/HR; Start 07/23/18 at 18:00 Miscellaneous Information (* Miscellaneous Pharmacy Order) Treatment of Hypoglycemia: 1.BG 51... Per protocol XX ; Start 07/24/18 at 02:00 Sodium Bicarbonate 125 meq/Dextrose 1,000 ml @ 50 mls/hr Q20H IV Last administered on 07/24/18at 02:57; Admin Dose 50 MLS/HR; Start 07/24/18 at 03:00 Miscellaneous Information 1 ea NOTE XX ; Start 07/24/18 at 02:30 Glucose (Glutose) 15 gm Q15M PRN PO DECREASED GLUCOSE; Start 07/24/18 at 02:30 Glucose (Glutose) 22.5 gm Q15M PRN PO DECREASED GLUCOSE; Start 07/24/18 at 02:30 Dextrose (D50w Syringe) 25 ml Q15M PRN IV DECREASED GLUCOSE; Start 07/24/18 at 02:30 Dextrose (D50w Syringe) 50 ml Q15M PRN IV DECREASED GLUCOSE; Start 07/24/18 at 02:30 Glucagon (Glucagen) 1 mg Q15M PRN IM DECREASED GLUCOSE; Start 07/24/18 at 02:30 Glucose (Glutose) 15 gm Q15M PRN BUCCAL DECREASED GLUCOSE; Start 07/24/18 at 02:30 Vancomycin/Sodium Chloride 250 ml @ 125 mls/hr ONCE IVPB Last administered on 07/24/18at 08:34; Admin Dose 125 MLS/HR; Start 07/24/18 at 09:00; Stop 07/24/18 at 10:59 GERI MILTON MD July 24, 2018 09:02
[2018-07-24] MEDS ORDERED: PHYTONADIONE 10 MG in DEXTROSE 5% 50 ML IVPB STA (09:15)
--- NOTE | 2018-07-24 09:19 | PN ---
Date/Time of Note Date/Time of Note DATE: 07/24/18 TIME: 09:17 Assessment/Plan VTE Prophylaxis Risk score (from [facility] [place]0 risk: 6 SCD applied (from Ns): Yes Pharmacological prophylaxis: NA/contraindicated Pharm contraindication: blood coag disorder Lines/Catheters IV Catheter Type (from [facility]): A Line Urinary Cath still in place: No Assessment/Plan Hospital Course subjective: remains intubated and sedated, on minimal pressor support with large melanotic / bloody bm Objective : GENERAL: Intubated and comfortably sedated, was following commands off sedation per nurse HEENT: Intubated, Vent settings noted LUNGS: diffusely diminished HEART: S1, S2. No murmur, gallops or rubs. ABDOMEN: Soft, non distended, Normoactive bowel sounds. GENITOURINARY: Normal female external genitalia, Cordon to bedside drainage EXTREMITIES: RUE dialysis graft NEUROLOGIC: The patient is currently sedated. SKIN: diffuse ecchymosis with skin tears on buttocks assessment and plan: 27-year-old woman with history of end-stage kidney disease hemodialysis dependent was brought in by EMS from home for confusion and altered mental status and hypoglycemia . She had been recently discharged from outside hospital after being managed for MSSA bacteremia, no clear source has been found. She was home for 3 days before she was brought here. She suffered cardiac arrest in the emergency room after she was treated for hypoglycemia , she is currently managed as follows: Status post cardiac arrest with return of spontaneous circulation Likely secondary to metabolic causes from missed hemodialysis Acute respiratory failure: Remains ventilator dependent Severe Sepsis with septic shock and severe lactic acidosis and nnow multiorgan failure -multifactorial, possible PNA / pancreatitis -remains on minimal pressor support Acute metabolic encephalopathy due to hypoglycemia likely from #1 Fluid overload vs CHF Acute Pancreatitis: worsened , severe Elevated trop vs Nstemi Possible LLL pneumonia -recent hospitalization with reports of MSSA bacteremia ESRD on HD with severe metabolic acidosis -2/2 lupus nephritis? 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 -transfusion today -iron , folate and B12 levels wnl Debility / Malnuitrition Eliquis therapy: on hold Hx of Mssa bacteremia -ROSANNE was done without evidence of endocarditis -subsequent blood cultures have been negative -no concern for vegetations on TTE here Mild CM on echo with EF45% and Moderate mitral and tricuspid regurgitation severe jaundice with hemolysis severe coagulopathy, ?DIC GI bleeding : gopal / hematochezia legally blind : retinitis pigmentosa Plan: patient seems to be actively hemolyzing and bleeding VIT K / FFP / Platelets / PRBC GI consultation Continue routine HD per renal Wound care consult for buttock skin tears Continue close ICU monitoring Prognosis remains guarded Care time >40mins , spoke with family extensively Result Diagram: 07/24/1840907/24/18 0410 Results 24hrs Laboratory Tests Test 07/23/18 10:03 07/23/18 11:49 07/23/18 11:52 07/23/18 11:54 Bedside Glucose 85 78 Creatine Kinase 238 H Creatine Kinase 8.6 Index Creatinine 20.40 H Kinase MB (Mass) Troponin I 0.234 *H Platelet Count 21 *L Prothrombin Time 36.8 H Prothrombin Time 2.9 Ratio INR 3.72 International Normalized Ratio Activated 44.7 H Partial Thrombop last Time Thrombin Time 15.8 Fibrinogen 202.0 #L D-Dimer > 80219.00 H Sodium Level 142 Potassium Level 4.6 Chloride Level 101 Carbon Dioxide 10 L Level Anion Gap 31 H Blood Urea 23 H Nitrogen Creatinine 2.92 H Est Glomerular 19 L Filtrat Rate mL/min Glucose Level 82 # Calcium Level 8.0 L Lactate 4059 H Dehydrogenase Test 07/23/18 16:07 07/23/18 16:37 07/23/18 18:20 07/23/18 21:07 Blood Gas Blood arterial Specimen Source Arterial Blood 07/23/2018 4:30: Date Drawn 04 PM Arterial Blood 7.029 *L pH (Temp corrected) Arterial Blood 21.5 L pCO2 (Temp correct) Arterial Blood 146.0 H pO2 (Temp corrected) Arterial Blood 5.5 *L HCO3 Arterial Blood -23.6 L Base Excess Arterial Blood 98.0 Oxygen Saturatio n Newton Test ACCEPTAB Arterial Blood Right Radial Gas Puncture Site Arterial 0.3 Blood Carboxyhem oglobin Arterial Blood 0.3 Methemoglobin Blood Gas A-a O2 42.6 H Differential Oxyhemoglobin 97.4 Percent Blood Gas 37.0 Temperature Blood Gas 16.0 Respiration Rate Blood Gas Actual 21 Respiration Rate Blood Gas VENT - AC Modality FiO2 30.0 Blood Gas Tidal 400.0 Volume Blood Gas Low 5.0 PEEP Setting Blood Gas JUNI JACKSON Critical Value Read Back Blood Gas XAVI BARBOSA Notified Whom Blood Gas 07/23/2018 4:53: Notified Time 09 PM Bedside Glucose 111 71 White Blood 12.4 H Count Red Blood Count 2.25 #L Hemoglobin 7.7 L Hematocrit 23.6 L Mean Corpuscular 104.9 H Volume Mean Corpuscular 34.2 H Hemoglobin Mean Corpuscular 32.6 Hemoglobin Isadora nt Red Cell 27.4 H Distribution Width Platelet Count 19 #*L Mean Platelet 14.8 H Volume Immature 0.900 H Granulocytes % Neutrophils % 85.8 H Lymphocytes % 6.1 L Monocytes % 7.1 Eosinophils % 0.0 Basophils % 0.1 Nucleated Red 1.1 H Blood Cells % Immature 0.110 H Granulocytes # Neutrophils # 10.6 H Lymphocytes # 0.8 Monocytes # 0.9 Eosinophils # 0.0 Basophils # 0.0 Nucleated Red 0.1 H Blood Cells # Activated 43.8 H Partial Thrombop last Time Mix PTT Normal 33.2 Plasma Immediate Mix PTT Normal 36.5 Plasma 1 Hour Immunoglobulin A 132 Immunoglobulin G 741 Immunoglobulin M 71 Test 07/24/18 01:48 07/24/18 02:49 07/24/18 04:10 07/24/18 04:50 Bedside Glucose 20 *L 181 White Blood 12.3 H Count Red Blood Count 2.32 L Hemoglobin 7.8 L Hematocrit 24.0 L Mean Corpuscular 103.4 H Volume Mean Corpuscular 33.6 H Hemoglobin Mean Corpuscular 32.5 Hemoglobin Isadora nt Red Cell 28.7 H Distribution Width Platelet Count 18 *L Mean Platelet Volume Immature 0.700 H Granulocytes % Neutrophils % 82.4 H Lymphocytes % 6.2 L Monocytes % 10.6 Eosinophils % 0.0 Basophils % 0.1 Nucleated Red 3.7 H Blood Cells % Immature 0.090 H Granulocytes # Neutrophils # 10.1 H Lymphocytes # 0.8 Monocytes # 1.3 H Eosinophils # 0.0 Basophils # 0.0 Nucleated Red 0.5 H Blood Cells # Prothrombin Time 42.3 H Prothrombin Time 3.3 Ratio INR 4.45 International Normalized Ratio Activated 45.1 H Partial Thrombop last Time Fibrinogen 185.0 L Sodium Level 143 Potassium Level 4.0 Chloride Level 94 L Carbon Dioxide 14 L Level Anion Gap 35 H Blood Urea 13 # Nitrogen Creatinine 1.81 #H Est Glomerular 33 L Filtrat Rate mL/min Glucose Level 128 # Lactic Acid > 24.0 *H Level Calcium Level 8.4 Total Bilirubin 10.8 H Direct Bilirubin 8.20 H Indirect 2.6 H Bilirubin Aspartate Amino 1378 H Transf (AST/SGOT ) Alanine 420 H Aminotransferase (ALT/SGPT) Alkaline 71 Phosphatase Total Protein 6.3 Albumin 4.4 Lipase 5953 H Random 5.2 Vancomycin Level Lab Scanned BLOOD TRANSFUSI Report ON Test 07/24/18 05:00 07/24/18 05:11 07/24/18 08:39 Blood Gas Blood arterial Specimen Source Arterial Blood 07/24/2018 5:54: Date Drawn 46 AM Arterial Blood 7.403 pH (Temp corrected) Arterial Blood 24.3 L pCO2 (Temp correct) Arterial Blood 133.5 H pO2 (Temp corrected) Arterial Blood 14.8 L HCO3 Arterial Blood -8.8 L Base Excess Arterial Blood 98.6 H Oxygen Saturatio n Newton Test ACCEPTAB Arterial Blood Left Radial Gas Puncture Site Arterial 0.7 Blood Carboxyhem oglobin Arterial Blood 0.3 Methemoglobin Blood Gas A-a O2 51.9 H Differential Oxyhemoglobin 97.6 Percent Blood Gas 37.0 Temperature Blood Gas 16.0 Respiration Rate Blood Gas Actual 18 Respiration Rate Blood Gas VENT - AC Modality FiO2 30.0 Blood Gas Tidal 400.0 Volume Blood Gas Mean 13 Airway Pressure Blood Gas Low 5.0 PEEP Setting Blood Gas 35.0 Inspiratory Pressure Blood Gas XAVI BARCLAY Notified Whom Blood Gas 07/24/2018 6:03: Notified Time 24 AM Bedside Glucose 137 150 Exam/Review of Systems Exam Vitals Vital Signs Date Temp Pulse Resp B/P (MAP) Pulse Ox O2 O2 Flow FiO2 Time Delivery Rate 07/24/18 93 16 100 30 05:34 07/23/18 120/80 21:23 (93) 07/23/18 Mechanical 18:00 Ventilator 07/23/18 97.2 15:45 07/22/18 2.0 10:00 Intake and Output 07/23/18 07/23/18 07/24/18 1515:00 23:00 07:00 IntakeIntake Total 837.25 ml 452.00 ml 78.35 ml OutputOutput Total 500 ml BalanceBalance 837.25 ml -48.00 ml 78.35 ml Results Results 24hrs Laboratory Tests Test 07/23/18 10:03 07/23/18 11:49 07/23/18 11:52 07/23/18 11:54 Bedside Glucose 85 78 Creatine Kinase 238 H Creatine Kinase 8.6 Index Creatinine 20.40 H Kinase MB (Mass) Troponin I 0.234 *H Platelet Count 21 *L Prothrombin Time 36.8 H Prothrombin Time 2.9 Ratio INR 3.72 International Normalized Ratio Activated 44.7 H Partial Thrombop last Time Thrombin Time 15.8 Fibrinogen 202.0 #L D-Dimer > 27625.00 H Sodium Level 142 Potassium Level 4.6 Chloride Level 101 Carbon Dioxide 10 L Level Anion Gap 31 H Blood Urea 23 H Nitrogen Creatinine 2.92 H Est Glomerular 19 L Filtrat Rate mL/min Glucose Level 82 # Calcium Level 8.0 L Lactate 4059 H Dehydrogenase Test 07/23/18 16:07 07/23/18 16:37 07/23/18 18:20 07/23/18 21:07 Blood Gas Blood arterial Specimen Source Arterial Blood 07/23/2018 4:30: Date Drawn 04 PM Arterial Blood 7.029 *L pH (Temp corrected) Arterial Blood 21.5 L pCO2 (Temp correct) Arterial Blood 146.0 H pO2 (Temp corrected) Arterial Blood 5.5 *L HCO3 Arterial Blood -23.6 L Base Excess Arterial Blood 98.0 Oxygen Saturatio n Newton Test ACCEPTAB Arterial Blood Right Radial Gas Puncture Site Arterial 0.3 Blood Carboxyhem oglobin Arterial Blood 0.3 Methemoglobin Blood Gas A-a O2 42.6 H Differential Oxyhemoglobin 97.4 Percent Blood Gas 37.0 Temperature Blood Gas 16.0 Respiration Rate Blood Gas Actual 21 Respiration Rate Blood Gas VENT - AC Modality FiO2 30.0 Blood Gas Tidal 400.0 Volume Blood Gas Low 5.0 PEEP Setting Blood Gas JUNI JACKSON Critical Value Read Back Blood Gas XAVI BARBOSA Notified Whom Blood Gas 07/23/2018 4:53: Notified Time 09 PM Bedside Glucose 111 71 White Blood 12.4 H Count Red Blood Count 2.25 #L Hemoglobin 7.7 L Hematocrit 23.6 L Mean Corpuscular 104.9 H Volume Mean Corpuscular 34.2 H Hemoglobin Mean Corpuscular 32.6 Hemoglobin Isadora nt Red Cell 27.4 H Distribution Width Platelet Count 19 #*L Mean Platelet 14.8 H Volume Immature 0.900 H Granulocytes % Neutrophils % 85.8 H Lymphocytes % 6.1 L Monocytes % 7.1 Eosinophils % 0.0 Basophils % 0.1 Nucleated Red 1.1 H Blood Cells % Immature 0.110 H Granulocytes # Neutrophils # 10.6 H Lymphocytes # 0.8 Monocytes # 0.9 Eosinophils # 0.0 Basophils # 0.0 Nucleated Red 0.1 H Blood Cells # Activated 43.8 H Partial Thrombop last Time Mix PTT Normal 33.2 Plasma Immediate Mix PTT Normal 36.5 Plasma 1 Hour Immunoglobulin A 132 Immunoglobulin G 741 Immunoglobulin M 71 Test 07/24/18 01:48 07/24/18 02:49 07/24/18 04:10 07/24/18 04:50 Bedside Glucose 20 *L 181 White Blood 12.3 H Count Red Blood Count 2.32 L Hemoglobin 7.8 L Hematocrit 24.0 L Mean Corpuscular 103.4 H Volume Mean Corpuscular 33.6 H Hemoglobin Mean Corpuscular 32.5 Hemoglobin Isadora nt Red Cell 28.7 H Distribution Width Platelet Count 18 *L Mean Platelet Volume Immature 0.700 H Granulocytes % Neutrophils % 82.4 H Lymphocytes % 6.2 L Monocytes % 10.6 Eosinophils % 0.0 Basophils % 0.1 Nucleated Red 3.7 H Blood Cells % Immature 0.090 H Granulocytes # Neutrophils # 10.1 H Lymphocytes # 0.8 Monocytes # 1.3 H Eosinophils # 0.0 Basophils # 0.0 Nucleated Red 0.5 H Blood Cells # Prothrombin Time 42.3 H Prothrombin Time 3.3 Ratio INR 4.45 International Normalized Ratio Activated 45.1 H Partial Thrombop last Time Fibrinogen 185.0 L Sodium Level 143 Potassium Level 4.0 Chloride Level 94 L Carbon Dioxide 14 L Level Anion Gap 35 H Blood Urea 13 # Nitrogen Creatinine 1.81 #H Est Glomerular 33 L Filtrat Rate mL/min Glucose Level 128 # Lactic Acid > 24.0 *H Level Calcium Level 8.4 Total Bilirubin 10.8 H Direct Bilirubin 8.20 H Indirect 2.6 H Bilirubin Aspartate Amino 1378 H Transf (AST/SGOT ) Alanine 420 H Aminotransferase (ALT/SGPT) Alkaline 71 Phosphatase Total Protein 6.3 Albumin 4.4 Lipase 5953 H Random 5.2 Vancomycin Level Lab Scanned BLOOD TRANSFUSI Report ON Test 07/24/18 05:00 07/24/18 05:11 07/24/18 08:39 Blood Gas Blood arterial Specimen Source Arterial Blood 07/24/2018 5:54: Date Drawn 46 AM Arterial Blood 7.403 pH (Temp corrected) Arterial Blood 24.3 L pCO2 (Temp correct) Arterial Blood 133.5 H pO2 (Temp corrected) Arterial Blood 14.8 L HCO3 Arterial Blood -8.8 L Base Excess Arterial Blood 98.6 H Oxygen Saturatio n Newton Test ACCEPTAB Arterial Blood Left Radial Gas Puncture Site Arterial 0.7 Blood Carboxyhem oglobin Arterial Blood 0.3 Methemoglobin Blood Gas A-a O2 51.9 H Differential Oxyhemoglobin 97.6 Percent Blood Gas 37.0 Temperature Blood Gas 16.0 Respiration Rate Blood Gas Actual 18 Respiration Rate Blood Gas VENT - AC Modality FiO2 30.0 Blood Gas Tidal 400.0 Volume Blood Gas Mean 13 Airway Pressure Blood Gas Low 5.0 PEEP Setting Blood Gas 35.0 Inspiratory Pressure Blood Gas XAVI BARCLAY Notified Whom Blood Gas 07/24/2018 6:03: Notified Time 24 AM Bedside Glucose 137 150 Medications Medication Current Medications Lorazepam (Ativan) 0.5 mg Q6H PRN IV .ANXIETY; Start 07/22/18 at 10:30 Ondansetron HCl (Zofran Inj) 4 mg Q6H PRN IV NAUSEA/VOMITING; Start 07/22/18 at 10:30 Aspirin (Aspirin) 81 mg DAILY PO ; Start 07/23/18 at 09:00; Status Hold Vancomycin HCl (Vanco Iv Per Pharmacy) VANCOMYCIN PER PHARMACY PER PROTOCOL XX ; Start 07/22/18 at 10:30 Multivit/Ca Carb/ B Cmplx/FA/Prenat (Lalita-Abigail) 1 tab DAILY PO Last admi nistered on 07/24/18at 08:29; Admin Dose 1 TAB; Start 07/23/18 at 09:00 Dopamine HCl/ Dextrose 250 ml @ 2.205 mls/ hr TITRATE IV Last administered on 07/22/18at 11:31; Admin Dose 15.435 MLS/HR; Start 07/22/18 at 11:30 Phenylephrine HCl 250 ml @ 75 mls/hr TITRATE IV ; Start 07/22/18 at 12:00 Hydrocortisone (Solu-Cortef) 200 mg Q8 IV Last administered on 07/24/18 06:16; Admin Dose 200 MG; Start 07/22/18 at 14:00 Acetaminophen (Tylenol Supp) 650 mg Q4H PRN MS TEMP > 37C; Start 07/22/18 at 12:30 Acetaminophen (Tylenol Liquid) 650 mg Q4H PRN PO TEMP > 37C; Start 07/22/18 at 12:30 Meperidine HCl (Demerol) 12.5 mg Q4H PRN IV POST OPERATIVE SHIVERING; Start 07/22/18 at 12:30 Meperidine HCl (Demerol) 25 mg Q4H PRN IV POST OPERATIVE SHIVERING; Start 07/22/18 at 12:30 Eye Lubricant (Akwa Oint) 1 applic Q6 BOTH EYES Last administered on 07/24/18 08:34; Admin Dose 1 APPLIC; Start 07/22/18 at 18:00 Eye Lubricant (Artificial Tears Oph) 2 drop Q6 BOTH EYES Last administered on 07/24/18 08:34; Admin Dose 2 DROP; Start 07/22/18 at 18:00 Norepinephrine 250 ml @ 1.875 mls/ hr TITRATE IV Last administered on 07/23/18 01:01; Admin Dose 22.5 MLS/HR; Start 07/22/18 at 13:00 Docusate Sodium (Colace Liquid Cup) 100 mg BID NGT Last administered on 07/24/18 08:29; Admin Dose 100 MG; Start 07/22/18 at 22:00 Midazolam HCl 50 ml @ 1 mls/hr TITRATE IV Last administered on 07/24/18 05:50; Admin Dose 3 MLS/HR; Start 07/23/18 at 02:00 Sevelamer Carbonate (Renvela) 800 mg WITH MEALS PO Last administered on 07/24/18 08:29; Admin Dose 800 MG; Start 07/23/18 at 07:35 Famotidine (Pepcid) 20 mg DAILY NGT Last administered on 07/24/18 08:33; Admin Dose 20 MG; Start 07/23/18 at 12:00 Diagnostic Test (Pha) (Accu-Chek) 1 ea Q4 XX Last administered on 5/23/19at 08:29; Admin Dose 1 EA; Start 07/23/18 at 13:00 Albumin Human 100 ml @ 100 mls/hr WITH DIALYSIS PRN IV SBP <90 DURING DIALYSIS Last administered on 07/23/18at 18:07; Admin Dose 100 MLS/HR; Start 07/23/18 at 18:00 Miscellaneous Information (* Miscellaneous Pharmacy Order) Treatment of Hypoglycemia: 1.BG 51... Per protocol XX ; Start 07/24/18 at 02:00 Sodium Bicarbonate 125 meq/Dextrose 1,000 ml @ 50 mls/hr Q20H IV Last admin istered on 07/24/18at 02:57; Admin Dose 50 MLS/HR; Start 07/24/18 at 03:00 Miscellaneous Information 1 ea NOTE XX ; Start 07/24/18 at 02:30 Glucose (Glutose) 15 gm Q15M PRN PO DECREASED GLUCOSE; Start 07/24/18 at 02:30 Glucose (Glutose) 22.5 gm Q15M PRN PO DECREASED GLUCOSE; Start 07/24/18 at 02:30 Dextrose (D50w Syringe) 25 ml Q15M PRN IV DECREASED GLUCOSE; Start 07/24/18 at 02:30 Dextrose (D50w Syringe) 50 ml Q15M PRN IV DECREASED GLUCOSE; Start 07/24/18 at 02:30 Glucagon (Glucagen) 1 mg Q15M PRN IM DECREASED GLUCOSE; Start 07/24/18 at 02:30 Glucose (Glutose) 15 gm Q15M PRN BUCCAL DECREASED GLUCOSE; Start 07/24/18 at 02:30 Vancomycin/Sodium Chloride 250 ml @ 125 mls/hr ONCE IVPB Last administered on 07/24/18at 08:34; Admin Dose 125 MLS/HR; Start 07/24/18 at 09:00; Stop 07/24/18 at 10:59 TRINITY ELENA July 24, 2018 09:19
[2018-07-24] MEDS ORDERED: IOHEXOL 14.3 MG(I)/ML (ADULT) BTL PO ONE (10:30)
[2018-07-24] MEDS ORDERED: TPN 1,000 ML IV SCH (12:00)
--- NOTE | 2018-07-24 12:09 | CONS ---
Assessment/Plan Assessment/Plan Hospital Course (Demo Recall) No acute changes overnight. Patient is in hemodialysis, looks comfortable no fevers overnight WBC 12.3 H&H 7.8 and 24 platelets 18 neutrophils 82.4 Microbiology: All cultures negative Antimicrobials: Vancomycin, cefepime CT of the brain revealed acute left greater than right ischemic cerebellar infarcts with sulcal in effacement no acute hemorrhage herniation or hydrocephalus. Acute superimposed on chronic sinusitis. CT of the abdomen and pelvis revealed diffuse wall thickening of the colon consistent with colitis. Bibasilar groundglass infiltrates or edema of the lungs with small right pleural effusion. Scattered mild ascites and mesenteric edema. Please see full record in the chart Indwelling: Endotracheal tube, NG tube, right subclavian triple-lumen catheter, right upper extremity AV fistula Antimicrobials: Vancomycin Physical examination: This is a chronically ill-appearing young woman who is intubated sedated in no distress. Head atraumatic normocephalic. Neck is supple. Chest rise symmetrical, breath sounds diminished bases. Heart: S1-S2. Abdomen soft, bowel tones hypoactive. Extremities cyanotic Assessment: 1. Shock ?septic ?cardiogenic 2. S/p PEA arrest 3. Acute CVA 4. Acute on chronic sinusitis 5. Colitis ?C dif 6. S/p MSSA bacteremia per report from [facility], unclear if ROSANNE was done==> pt was dc on Rifampin and ? IV Vanco , last dose 08/23 7. ESRD 8. SZ do 9. CAD/Hx PPM 10. Anemia 11. Thrombocytopenia 12. DM 13. Blindness Plan: Remains unchanged, off pressors since this morning, continue abx, add Flagyl, obtain report of ROSANNE from another facility if it was done, hematology recommendations noted, consider neurology evaluation, cardiology/pulmonary/renal rec-s Consultation Date/Type/Reason Admit Date/Time July 22, 2018 at 09:09 Initial Consult Date 07/23/18 Type of Consult id Requesting Provider: TRINITY ELENA Date/Time of Note DATE: 07/24/18 TIME: 12:06 Exam/Review of Systems Exam Vitals Vital Signs Date Temp Pulse Resp B/P (MAP) Pulse Ox O2 O2 Flow FiO2 Time Delivery Rate 07/24/18 91 19 100 30 11:10 07/23/18 120/80 21:23 (93) 07/23/18 Mechanical 18:00 Ventilator 07/23/18 97.2 15:45 07/22/18 2.0 10:00 Intake and Output 07/23/18 07/23/18 07/24/18 1515:00 23:00 07:00 IntakeIntake Total 837.25 ml 452.00 ml 78.35 ml OutputOutput Total 500 ml BalanceBalance 837.25 ml -48.00 ml 78.35 ml Results Result Diagram: 07/24/18 0410 07/24/18 0410 Results 24hrs Laboratory Tests Test 07/23/18 16:07 07/23/18 16:37 07/23/18 18:20 07/23/18 21:07 Blood Gas Blood arterial Specimen Source Arterial Blood 07/23/2018 4:30: Date Drawn 04 PM Arterial Blood 7.029 *L pH (Temp corrected) Arterial Blood 21.5 L pCO2 (Temp correct) Arterial Blood 146.0 H pO2 (Temp corrected) Arterial Blood 5.5 *L HCO3 Arterial Blood -23.6 L Base Excess Arterial Blood 98.0 Oxygen Saturatio n Newton Test ACCEPTAB Arterial Blood Right Radial Gas Puncture Site Arterial 0.3 Blood Carboxyhem oglobin Arterial Blood 0.3 Methemoglobin Blood Gas A-a O2 42.6 H Differential Oxyhemoglobin 97.4 Percent Blood Gas 37.0 Temperature Blood Gas 16.0 Respiration Rate Blood Gas Actual 21 Respiration Rate Blood Gas VENT - AC Modality FiO2 30.0 Blood Gas Tidal 400.0 Volume Blood Gas Low 5.0 PEEP Setting Blood Gas JUNI JACKSON Critical Value Read Back Blood Gas XAVI BARBOSA Notified Whom Blood Gas 07/23/2018 4:53: Notified Time 09 PM Bedside Glucose 111 71 White Blood 12.4 H Count Red Blood Count 2.25 #L Hemoglobin 7.7 L Hematocrit 23.6 L Mean Corpuscular 104.9 H Volume Mean Corpuscular 34.2 H Hemoglobin Mean Corpuscular 32.6 Hemoglobin Isadora nt Red Cell 27.4 H Distribution Width Platelet Count 19 #*L Mean Platelet 14.8 H Volume Immature 0.900 H Granulocytes % Neutrophils % 85.8 H Lymphocytes % 6.1 L Monocytes % 7.1 Eosinophils % 0.0 Basophils % 0.1 Nucleated Red 1.1 H Blood Cells % Immature 0.110 H Granulocytes # Neutrophils # 10.6 H Lymphocytes # 0.8 Monocytes # 0.9 Eosinophils # 0.0 Basophils # 0.0 Nucleated Red 0.1 H Blood Cells # Activated 43.8 H Partial Thrombop last Time Mix PTT Normal 33.2 Plasma Immediate Mix PTT Normal 36.5 Plasma 1 Hour Immunoglobulin A 132 Immunoglobulin G 741 Immunoglobulin M 71 Test 07/24/18 01:48 07/24/18 02:49 07/24/18 04:10 07/24/18 04:50 Bedside Glucose 20 *L 181 White Blood 12.3 H Count Red Blood Count 2.32 L Hemoglobin 7.8 L Hematocrit 24.0 L Mean Corpuscular 103.4 H Volume Mean Corpuscular 33.6 H Hemoglobin Mean Corpuscular 32.5 Hemoglobin Isadora nt Red Cell 28.7 H Distribution Width Platelet Count 18 *L Mean Platelet Volume Immature 0.700 H Granulocytes % Neutrophils % 82.4 H Lymphocytes % 6.2 L Monocytes % 10.6 Eosinophils % 0.0 Basophils % 0.1 Nucleated Red 3.7 H Blood Cells % Immature 0.090 H Granulocytes # Neutrophils # 10.1 H Lymphocytes # 0.8 Monocytes # 1.3 H Eosinophils # 0.0 Basophils # 0.0 Nucleated Red 0.5 H Blood Cells # Prothrombin Time 42.3 H Prothrombin Time 3.3 Ratio INR 4.45 International Normalized Ratio Activated 45.1 H Partial Thrombop last Time Fibrinogen 185.0 L Sodium Level 143 Potassium Level 4.0 Chloride Level 94 L Carbon Dioxide 14 L Level Anion Gap 35 H Blood Urea 13 # Nitrogen Creatinine 1.81 #H Est Glomerular 33 L Filtrat Rate mL/min Glucose Level 128 # Lactic Acid > 24.0 *H Level Calcium Level 8.4 Total Bilirubin 10.8 H Direct Bilirubin 8.20 H Indirect 2.6 H Bilirubin Aspartate Amino 1378 H Transf (AST/SGOT ) Alanine 420 H Aminotransferase (ALT/SGPT) Alkaline 71 Phosphatase Total Protein 6.3 Albumin 4.4 Lipase 5953 H Random 5.2 Vancomycin Level Lab Scanned BLOOD TRANSFUSI Report ON Test 07/24/18 05:00 07/24/18 05:11 07/24/18 08:39 Blood Gas Blood arterial Specimen Source Arterial Blood 07/24/2018 5:54: Date Drawn 46 AM Arterial Blood 7.403 pH (Temp corrected) Arterial Blood 24.3 L pCO2 (Temp correct) Arterial Blood 133.5 H pO2 (Temp corrected) Arterial Blood 14.8 L HCO3 Arterial Blood -8.8 L Base Excess Arterial Blood 98.6 H Oxygen Saturatio n Newton Test ACCEPTAB Arterial Blood Left Radial Gas Puncture Site Arterial 0.7 Blood Carboxyhem oglobin Arterial Blood 0.3 Methemoglobin Blood Gas A-a O2 51.9 H Differential Oxyhemoglobin 97.6 Percent Blood Gas 37.0 Temperature Blood Gas 16.0 Respiration Rate Blood Gas Actual 18 Respiration Rate Blood Gas VENT - AC Modality FiO2 30.0 Blood Gas Tidal 400.0 Volume Blood Gas Mean 13 Airway Pressure Blood Gas Low 5.0 PEEP Setting Blood Gas 35.0 Inspiratory Pressure Blood Gas DENYMORTGAGE LOAN REVIEWER Notified Whom Blood Gas 07/24/2018 6:03: Notified Time 24 AM Bedside Glucose 137 150 Medications Medication Current Medications Lorazepam (Ativan) 0.5 mg Q6H PRN IV .ANXIETY; Start 07/22/18 at 10:30 Ondansetron HCl (Zofran Inj) 4 mg Q6H PRN IV NAUSEA/VOMITING; Start 07/22/18 at 10:30 Aspirin (Aspirin) 81 mg DAILY PO ; Start 07/23/18 at 09:00; Status Hold Vancomycin HCl (Vanco Iv Per Pharmacy) VANCOMYCIN PER PHARMACY PER PROTOCOL XX ; Start 07/22/18 at 10:30 Multivit/Ca Carb/ B Cmplx/FA/Prenat (Lalita-Abigail) 1 tab DAILY PO Last administered on 07/24/18at 08:29; Admin Dose 1 TAB; Start 07/23/18 at 09:00 Dopamine HCl/ Dextrose 250 ml @ 2.205 mls/ hr TITRATE IV Last administered on 07/22/18at 11:31; Admin Dose 15.435 MLS/HR; Start 07/22/18 at 11:30 Phenylephrine HCl 250 ml @ 75 mls/hr TITRATE IV ; Start 07/22/18 at 12:00 Hydrocortisone (Solu-Cortef) 200 mg Q8 IV Last administered on 07/24/18at 06:16; Admin Dose 200 MG; Start 07/22/18 at 14:00 Acetaminophen (Tylenol Supp) 650 mg Q4H PRN [place] TEMP > 37C; Start 07/22/18 at 12:30 Acetaminophen (Tylenol Liquid) 650 mg Q4H PRN PO TEMP > 37C; Start 07/22/18 at 12:30 Meperidine HCl (Demerol) 12.5 mg Q4H PRN IV POST OPERATIVE SHIVERING; Start 07/22/18 at 12:30 Meperidine HCl (Demerol) 25 mg Q4H PRN IV POST OPERATIVE SHIVERING; Start 07/22/18 at 12:30 Eye Lubricant (Akwa Oint) 1 applic Q6 BOTH EYES Last administered on 07/24/18 08:34; Admin Dose 1 APPLIC; Start 07/22/18 at 18:00 Eye Lubricant (Artificial Tears Oph) 2 drop Q6 BOTH EYES Last administered on 07/24/18 08:34; Admin Dose 2 DROP; Start 07/22/18 at 18:00 Norepinephrine 250 ml @ 1.875 mls/ hr TITRATE IV Last administered on 07/23/18 01:01; Admin Dose 22.5 MLS/HR; Start 07/22/18 at 13:00 Docusate Sodium (Colace Liquid Cup) 100 mg BID NGT Last administered on 07/24/18 08:29; Admin Dose 100 MG; Start 07/22/18 at 22:00 Midazolam HCl 50 ml @ 1 mls/hr TITRATE IV Last administered on 07/24/18 05:50; Admin Dose 3 MLS/HR; Start 07/23/18 at 02:00 Sevelamer Carbonate (Renvela) 800 mg WITH MEALS PO Last administered on 07/24/18 08:29; Admin Dose 800 MG; Start 07/23/18 at 07:35 Famotidine (Pepcid) 20 mg DAILY NGT Last administered on 07/24/18 08:33; Admin Dose 20 MG; Start 07/23/18 at 12:00 Diagnostic Test (Pha) (Accu-Chek) 1 ea Q4 XX Last administered on 07/24/18 08:29; Admin Dose 1 EA; Start 07/23/18 at 13:00 Albumin Human 100 ml @ 100 mls/hr WITH DIALYSIS PRN IV SBP <90 DURING DIALYSIS Last administered on 07/23/18 18:07; Admin Dose 100 MLS/HR; Start 07/23/18 at 18:00 Miscellaneous Information (* Miscellaneous Pharmacy Order) Treatment of Hypoglycemia: 1.BG 51... Per protocol XX ; Start 07/24/18 at 02:00 Sodium Bicarbonate 125 meq/Dextrose 1,000 ml @ 50 mls/hr Q20H IV Last administered on 07/24/18at 02:57; Admin Dose 50 MLS/HR; Start 07/24/18 at 03:00 Miscellaneous Information 1 ea NOTE XX ; Start 07/24/18 at 02:30 Glucose (Glutose) 15 gm Q15M PRN PO DECREASED GLUCOSE; Start 07/24/18 at 02:30 Glucose (Glutose) 22.5 gm Q15M PRN PO DECREASED GLUCOSE; Start 07/24/18 at 02:30 Dextrose (D50w Syringe) 25 ml Q15M PRN IV DECREASED GLUCOSE; Start 07/24/18 at 02:30 Dextrose (D50w Syringe) 50 ml Q15M PRN IV DECREASED GLUCOSE; Start 07/24/18 at 02:30 Glucagon (Glucagen) 1 mg Q15M PRN IM DECREASED GLUCOSE; Start 07/24/18 at 02:30 Glucose (Glutose) 15 gm Q15M PRN BUCCAL DECREASED GLUCOSE; Start 07/24/18 at 02:30 OSIRIS COX NP July 24, 2018 12:09
--- NOTE | 2018-07-24 13:20 | CONS ---
Assessment/Plan Assessment/Plan Hospital Course (Demo Recall) 1. Status post code blue, unresponsive, could be secondary to cardiac in origin/rule out embolic infarct to the brain/hypoglycemia/septic shock. 2. Septic shock with history of endocarditis, source questionable. This patient had a pacemaker in the chest and also has AV graft. bld cx pending so far, hx MSSA in [facility] was hospitalized 3. Severe anion gap acidosis secondary to hypovolemia/ septic shock with lactic acidosis, resolved 4 Respiratory failure s/p intubation 4. End-stage renal disease on hemodialysis secondary to right kidney atrophy, chronic tubulointerstitial nephritis. 5. Elevated troponin, likely secondary to acute coronary syndrome. non STEMI 6. Chronic atrial fibrillation. 7. Cardiomyopathy, status post pacemaker. 8. Chronic thrombocytopenia. with acute plt drop 9. Chronic megaloblastic anemia. 10. Abnormal LFTs with elevated bilirubin level.? hemolysis 11. Leukocytosis. 12. Anemia, megaloblastic with acute drop r/o hemolysis 13. Hypokalemia resolved 14. hx retinitis pigmentosa with blindness Assessment/Plan (Daily) - Assess neuro status -phos. level -HD today - replete K , recheck - 1 unit PRBC - Recommend heme consult, hold off ASA - Recheck labs and ABG - chest xray - r/o hemolysis/DIC panel - cw vanco/cefepime - renally dose all meds - avoid bp/blood draws in RUE - gi/dvt prophylaxis per primary Consultation Date/Type/Reason Admit Date/Time July 22, 2018 at 09:09 Initial Consult Date 07/23/18 Type of Consult nephrology Reason for Consultation ESRD Requesting Provider: TRINITY ELENA Date/Time of Note DATE: 07/24/18 TIME: 13:09 24 HR Interval Summary Subjective hx not possible: pt critical status Exam/Review of Systems Exam Vitals Vital Signs Date Temp Pulse Resp B/P (MAP) Pulse Ox O2 O2 Flow FiO2 Time Delivery Rate 07/24/18 91 19 100 30 11:10 07/23/18 120/80 21:23 (93) 07/23/18 Mechanical 18:00 Ventilator 07/23/18 97.2 15:45 07/22/18 2.0 10:00 Intake and Output 07/23/18 07/23/18 07/24/18 1515:00 23:00 07:00 IntakeIntake Total 837.25 ml 452.00 ml 78.35 ml OutputOutput Total 500 ml BalanceBalance 837.25 ml -48.00 ml 78.35 ml Exam r arm fistula, sedated Head: normocephalic Eyes: nl conjunctiva Neck: supple Respiratory: diminished breath sounds Cardiovascular: regular rate and rhythm Gastrointestinal: soft Musculoskeletal: swelling (right side of the body) Results Result Diagram: 07/24/18 0410 07/24/18 0410 Results 24hrs Laboratory Tests Test 07/23/18 16:07 07/23/18 16:37 07/23/18 18:20 07/23/18 21:07 Blood Gas Blood arterial Specimen Source Arterial Blood 07/23/2018 4:30: Date Drawn 04 PM Arterial Blood 7.029 *L pH (Temp corrected) Arterial Blood 21.5 L pCO2 (Temp correct) Arterial Blood 146.0 H pO2 (Temp corrected) Arterial Blood 5.5 *L HCO3 Arterial Blood -23.6 L Base Excess Arterial Blood 98.0 Oxygen Saturatio n [place] Test ACCEPTAB Arterial Blood Right Radial Gas Puncture Site Arterial 0.3 Blood Carboxyhem oglobin Arterial Blood 0.3 Methemoglobin Blood Gas A-a O2 42.6 H Differential Oxyhemoglobin 97.4 Percent Blood Gas 37.0 Temperature Blood Gas 16.0 Respiration Rate Blood Gas Actual 21 Respiration Rate Blood Gas VENT - AC Modality FiO2 30.0 Blood Gas Tidal 400.0 Volume Blood Gas Low 5.0 PEEP Setting Blood Gas JUNI JACKSON Critical Value Read Back Blood Gas XAVI BARBOSA Notified Whom Blood Gas 07/23/2018 4:53: Notified Time 09 PM Bedside Glucose 111 71 White Blood 12.4 H Count Red Blood Count 2.25 #L Hemoglobin 7.7 L Hematocrit 23.6 L Mean Corpuscular 104.9 H Volume Mean Corpuscular 34.2 H Hemoglobin Mean Corpuscular 32.6 Hemoglobin Isadora nt Red Cell 27.4 H Distribution Width Platelet Count 19 #*L Mean Platelet 14.8 H Volume Immature 0.900 H Granulocytes % Neutrophils % 85.8 H Lymphocytes % 6.1 L Monocytes % 7.1 Eosinophils % 0.0 Basophils % 0.1 Nucleated Red 1.1 H Blood Cells % Immature 0.110 H Granulocytes # Neutrophils # 10.6 H Lymphocytes # 0.8 Monocytes # 0.9 Eosinophils # 0.0 Basophils # 0.0 Nucleated Red 0.1 H Blood Cells # Activated 43.8 H Partial Thrombop last Time Mix PTT Normal 33.2 Plasma Immediate Mix PTT Normal 36.5 Plasma 1 Hour Immunoglobulin A 132 Immunoglobulin G 741 Immunoglobulin M 71 Test 07/24/18 01:48 07/24/18 02:49 07/24/18 04:10 07/24/18 04:50 Bedside Glucose 20 *L 181 White Blood 12.3 H Count Red Blood Count 2.32 L Hemoglobin 7.8 L Hematocrit 24.0 L Mean Corpuscular 103.4 H Volume Mean Corpuscular 33.6 H Hemoglobin Mean Corpuscular 32.5 Hemoglobin Isadora nt Red Cell 28.7 H Distribution Width Platelet Count 18 *L Mean Platelet Volume Immature 0.700 H Granulocytes % Neutrophils % 82.4 H Lymphocytes % 6.2 L Monocytes % 10.6 Eosinophils % 0.0 Basophils % 0.1 Nucleated Red 3.7 H Blood Cells % Immature 0.090 H Granulocytes # Neutrophils # 10.1 H Lymphocytes # 0.8 Monocytes # 1.3 H Eosinophils # 0.0 Basophils # 0.0 Nucleated Red 0.5 H Blood Cells # Prothrombin Time 42.3 H Prothrombin Time 3.3 Ratio INR 4.45 International Normalized Ratio Activated 45.1 H Partial Thrombop last Time Fibrinogen 185.0 L Sodium Level 143 Potassium Level 4.0 Chloride Level 94 L Carbon Dioxide 14 L Level Anion Gap 35 H Blood Urea 13 # Nitrogen Creatinine 1.81 #H Est Glomerular 33 L Filtrat Rate mL/min Glucose Level 128 # Lactic Acid > 24.0 *H Level Calcium Level 8.4 Total Bilirubin 10.8 H Direct Bilirubin 8.20 H Indirect 2.6 H Bilirubin Aspartate Amino 1378 H Transf (AST/SGOT ) Alanine 420 H Aminotransferase (ALT/SGPT) Alkaline 71 Phosphatase Total Protein 6.3 Albumin 4.4 Lipase 5953 H Random 5.2 Vancomycin Level Lab Scanned BLOOD TRANSFUSI Report ON Test 07/24/18 05:00 07/24/18 05:11 07/24/18 08:39 Blood Gas Blood arterial Specimen Source Arterial Blood 07/24/2018 5:54: Date Drawn 46 AM Arterial Blood 7.403 pH (Temp corrected) Arterial Blood 24.3 L pCO2 (Temp correct) Arterial Blood 133.5 H pO2 (Temp corrected) Arterial Blood 14.8 L HCO3 Arterial Blood -8.8 L Base Excess Arterial Blood 98.6 H Oxygen Saturatio n Newton Test ACCEPTAB Arterial Blood Left Radial Gas Puncture Site Arterial 0.7 Blood Carboxyhem oglobin Arterial Blood 0.3 Methemoglobin Blood Gas A-a O2 51.9 H Differential Oxyhemoglobin 97.6 Percent Blood Gas 37.0 Temperature Blood Gas 16.0 Respiration Rate Blood Gas Actual 18 Respiration Rate Blood Gas VENT - AC Modality FiO2 30.0 Blood Gas Tidal 400.0 Volume Blood Gas Mean 13 Airway Pressure Blood Gas Low 5.0 PEEP Setting Blood Gas 35.0 Inspiratory Pressure Blood Gas DENY[employer] DATABASE ANALYST Notified Whom Blood Gas 07/24/2018 6:03: Notified Time 24 AM Bedside Glucose 137 150 Medications Medication Current Medications Lorazepam (Ativan) 0.5 mg Q6H PRN IV .ANXIETY; Start 07/22/18 at 10:30 Ondansetron HCl (Zofran Inj) 4 mg Q6H PRN IV NAUSEA/VOMITING; Start 07/22/18 at 10:30 Aspirin (Aspirin) 81 mg DAILY PO ; Start 07/23/18 at 09:00; Status Hold Vancomycin HCl (Vanco Iv Per Pharmacy) VANCOMYCIN PER PHARMACY PER PROTOCOL XX ; Start 07/22/18 at 10:30 Multivit/Ca Carb/ B Cmplx/FA/Prenat (Lalita-Abigail) 1 tab DAILY PO Last administered on 07/24/18at 08:29; Admin Dose 1 TAB; Start 07/23/18 at 09:00 Dopamine HCl/ Dextrose 250 ml @ 2.205 mls/ hr TITRATE IV Last administered on 07/22/18at 11:31; Admin Dose 15.435 MLS/HR; Start 07/22/18 at 11:30 Phenylephrine HCl 250 ml @ 75 mls/hr TITRATE IV ; Start 07/22/18 at 12:00 Hydrocortisone (Solu-Cortef) 200 mg Q8 IV Last administered on 07/24/18at 06:16; Admin Dose 200 MG; Start 07/22/18 at 14:00 Acetaminophen (Tylenol Supp) 650 mg Q4H PRN [place] TEMP > 37C; Start 07/22/18 at 12:30 Acetaminophen (Tylenol Liquid) 650 mg Q4H PRN PO TEMP > 37C; Start 07/22/18 at 12:30 Meperidine HCl (Demerol) 12.5 mg Q4H PRN IV POST OPERATIVE SHIVERING; Start 07/22/18 at 12:30 Meperidine HCl (Demerol) 25 mg Q4H PRN IV POST OPERATIVE SHIVERING; Start 07/22/18 at 12:30 Eye Lubricant (Akwa Oint) 1 applic Q6 BOTH EYES Last administered on 07/24/18 08:34; Admin Dose 1 APPLIC; Start 07/22/18 at 18:00 Eye Lubricant (Artificial Tears Oph) 2 drop Q6 BOTH EYES Last administered on 07/24/18 08:34; Admin Dose 2 DROP; Start 07/22/18 at 18:00 Norepinephrine 250 ml @ 1.875 mls/ hr TITRATE IV Last administered on 07/23/18 01:01; Admin Dose 22.5 MLS/HR; Start 07/22/18 at 13:00 Docusate Sodium (Colace Liquid Cup) 100 mg BID NGT Last administered on 07/24/18 08:29; Admin Dose 100 MG; Start 07/22/18 at 22:00 Midazolam HCl 50 ml @ 1 mls/hr TITRATE IV Last administered on 07/24/18 05:50; Admin Dose 3 MLS/HR; Start 07/23/18 at 02:00 Sevelamer Carbonate (Renvela) 800 mg WITH MEALS PO Last administered on 07/24/18 08:29; Admin Dose 800 MG; Start 07/23/18 at 07:35 Famotidine (Pepcid) 20 mg DAILY NGT Last administered on 07/24/18 08:33; Admin Dose 20 MG; Start 07/23/18 at 12:00 Diagnostic Test (Pha) (Accu-Chek) 1 ea Q4 XX Last administered on 07/24/18 12:27; Admin Dose 1 EA; Start 07/23/18 at 13:00 Albumin Human 100 ml @ 100 mls/hr WITH DIALYSIS PRN IV SBP <90 DURING DIALYSIS Last administered on 07/23/18 18:07; Admin Dose 100 MLS/HR; Start 07/23/18 at 18:00 Miscellaneous Information (* Miscellaneous Pharmacy Order) Treatment of Hypoglycemia: 1.BG 51... Per protocol XX ; Start 07/24/18 at 02:00 Sodium Bicarbonate 125 meq/Dextrose 1,000 ml @ 50 mls/hr Q20H IV Last administered on 07/24/18at 02:57; Admin Dose 50 MLS/HR; Start 07/24/18 at 03:00 Miscellaneous Information 1 ea NOTE XX ; Start 07/24/18 at 02:30 Glucose (Glutose) 15 gm Q15M PRN PO DECREASED GLUCOSE; Start 07/24/18 at 02:30 Glucose (Glutose) 22.5 gm Q15M PRN PO DECREASED GLUCOSE; Start 07/24/18 at 02:30 Dextrose (D50w Syringe) 25 ml Q15M PRN IV DECREASED GLUCOSE; Start 07/24/18 at 02:30 Dextrose (D50w Syringe) 50 ml Q15M PRN IV DECREASED GLUCOSE; Start 07/24/18 at 02:30 Glucagon (Glucagen) 1 mg Q15M PRN IM DECREASED GLUCOSE; Start 07/24/18 at 02:30 Glucose (Glutose) 15 gm Q15M PRN BUCCAL DECREASED GLUCOSE; Start 07/24/18 at 02:30 Cefepime HCl 50 ml @ 100 mls/hr DAILY IVPB ; Start 07/24/18 at 12:30 Metronidazole (Flagyl) 500 mg Q8 PO ; Start 07/24/18 at 13:00 KIM INGRAM July 24, 2018 13:19
[2018-07-24] MEDS: metroNIDAZOLE 500 MG TAB PO SCH ×2 (14:28→21:05)
--- NOTE | 2018-07-24 14:40 | CONS ---
Assessment/Plan Assessment/Plan Hospital Course 27 yo F with multiple significant comorbidities who was admitted to ICU following a cardiac arrest. TTM was deferred d/t her improvement in neurologic status. CTH on 07/24 was notable for acute BL cerebellar infarcts... for which neurology is consulted. Her labs suggest DIC, which could certainly be the underlying precipitant. Dissection/vasculitis is not yet excluded.. MRI brain is presently contraindicated d/t pacemaker CTAs are presently contraindicated d/t renal impairment Echo is unrevealing. LDL 20; haptoglobin <8 P: Repeat CTH in am CTA H/N when medically able Start ASA for stroke prevention when medically able; LDL is at goal Consider complete hypercoagulability panel pending the above Other medical management per primary Limit sedating medications where possible PT/OT/ST when able Will follow clinically, to recommend neurologic studies, as necessary Consultation Date/Type/Reason Admit Date/Time July 22, 2018 at 09:09 Type of Consult Neurology Reason for Consultation acute CVA Requesting Provider: TRINITY ELENA Date/Time of Note DATE: 07/24/18 TIME: 14:40 Hx of Present Illness 27 yo F with hx of ESRD, pacemaker placement, BL eye blindness and other comorbidities who presented to the ED for History was obtained from family and chart review. The family states that she was recently hospitalized at [facility] in for septic shock. Following her discharge, she returned home where she developed ams and low blood sugars, prompting her arrival to the ED. While in the ED, she reportedly had a cardiac arrest in the context of PEA. She was intubated, coded, and subsequently achieved ROSC. Due to her improvement in neurologic status, TTM was deferred. It is additionally elsewhere noted: Hx of Present Illness 27 yo chronically ill female with a PMH of ESRD, ?cause who was BIBA from home via ambulance because of severe lethargy. Apparently she was found by ems to be hypoglycemic and even upon arriving in ER was still hypoglycemic. She was recently discharged from [facility] 3 days ago after a 12 day hospitalization when she was treated for bacteremia vs endocarditis. She was sent on home on abx including rifampin. Patient improved with glucose administration. Last HD was on saturday as per her Sat, , sat schedule. She has only been very lethargic since discharge. She was referred to the emergency room by the dialysis unit and did not receive hemodialysis today.Chest x-ray is showing pulmonary congestion and increased densities in the lung bases for which infiltrates cannot be ruled out. Her CBC is also consistent with leukocytosis and bandemia the patient also has elevated lactic acid levels on chemistry. She is being admitted for possible sepsis with possible pneumonia. Subjective hx not possible: pt non-verbal, pt critical Exam/Review of Systems Exam Vitals Vital Signs Date Temp Pulse Resp B/P (MAP) Pulse Ox O2 O2 Flow FiO2 Time Delivery Rate 07/24/18 91 19 100 30 11:10 07/23/18 120/80 21:23 (93) 07/23/18 Mechanical 18:00 Ventilator 07/23/18 97.2 15:45 07/22/18 2.0 10:00 Intake and Output 07/23/18 07/23/18 07/24/18 1515:00 23:00 07:00 IntakeIntake Total 837.25 ml 452.00 ml 78.35 ml OutputOutput Total 500 ml BalanceBalance 837.25 ml -48.00 ml 78.35 ml Exam PE: Gen Appearance: No Apparent Distress HEENT: Intubated Cardiovascular: Regular rate Abdomen: Soft Extremities: Dry NE: The patient was obtunded and nonverbal. Cranial nerve examination was limited by mental status. Pupils were equal and reactive to light. There was no afferent pupillary defect. Funduscopic examination was limited. Face was grossly symmetric, w/ present corneal and cough reflexes. Tone was normal. Muscle bulk was normal. I did not see fasciculations. The patient had spontaneous movement of all extremities. Coordination and gait testing was limited by mental status. Arm and leg reflexes were within normal limits and symmetric. Coe's sign was absent. Plantar responses were flexor. Results Result Diagram: 07/24/18 0410 07/24/18 0410 Results 24hrs Laboratory Tests Test 07/23/18 16:07 07/23/18 16:37 07/23/18 18:20 07/23/18 21:07 Blood Gas Blood arterial Specimen Source Arterial Blood 07/23/2018 4:30: Date Drawn 04 PM Arterial Blood 7.029 *L pH (Temp corrected) Arterial Blood 21.5 L pCO2 (Temp correct) Arterial Blood 146.0 H pO2 (Temp corrected) Arterial Blood 5.5 *L HCO3 Arterial Blood -23.6 L Base Excess Arterial Blood 98.0 Oxygen Saturatio n Newton Test ACCEPTAB Arterial Blood Right Radial Gas Puncture Site Arterial 0.3 Blood Carboxyhem oglobin Arterial Blood 0.3 Methemoglobin Blood Gas A-a O2 42.6 H Differential Oxyhemoglobin 97.4 Percent Blood Gas 37.0 Temperature Blood Gas 16.0 Respiration Rate Blood Gas Actual 21 Respiration Rate Blood Gas VENT - AC Modality FiO2 30.0 Blood Gas Tidal 400.0 Volume Blood Gas Low 5.0 PEEP Setting Blood Gas JUNI JACKSON Critical Value Read Back Blood Gas XAVI BARBOSA Notified Whom Blood Gas 07/23/2018 4:53: Notified Time 09 PM Bedside Glucose 111 71 White Blood 12.4 H Count Red Blood Count 2.25 #L Hemoglobin 7.7 L Hematocrit 23.6 L Mean Corpuscular 104.9 H Volume Mean Corpuscular 34.2 H Hemoglobin Mean Corpuscular 32.6 Hemoglobin Isadora nt Red Cell 27.4 H Distribution Width Platelet Count 19 #*L Mean Platelet 14.8 H Volume Immature 0.900 H Granulocytes % Neutrophils % 85.8 H Lymphocytes % 6.1 L Monocytes % 7.1 Eosinophils % 0.0 Basophils % 0.1 Nucleated Red 1.1 H Blood Cells % Immature 0.110 H Granulocytes # Neutrophils # 10.6 H Lymphocytes # 0.8 Monocytes # 0.9 Eosinophils # 0.0 Basophils # 0.0 Nucleated Red 0.1 H Blood Cells # Activated 43.8 H Partial Thrombop last Time Mix PTT Normal 33.2 Plasma Immediate Mix PTT Normal 36.5 Plasma 1 Hour Immunoglobulin A 132 Immunoglobulin G 741 Immunoglobulin M 71 Test 07/24/18 01:48 07/24/18 02:49 07/24/18 04:10 07/24/18 04:50 Bedside Glucose 20 *L 181 White Blood 12.3 H Count Red Blood Count 2.32 L Hemoglobin 7.8 L Hematocrit 24.0 L Mean Corpuscular 103.4 H Volume Mean Corpuscular 33.6 H Hemoglobin Mean Corpuscular 32.5 Hemoglobin Isadora nt Red Cell 28.7 H Distribution Width Platelet Count 18 *L Mean Platelet Volume Immature 0.700 H Granulocytes % Neutrophils % 82.4 H Lymphocytes % 6.2 L Monocytes % 10.6 Eosinophils % 0.0 Basophils % 0.1 Nucleated Red 3.7 H Blood Cells % Immature 0.090 H Granulocytes # Neutrophils # 10.1 H Lymphocytes # 0.8 Monocytes # 1.3 H Eosinophils # 0.0 Basophils # 0.0 Nucleated Red 0.5 H Blood Cells # Prothrombin Time 42.3 H Prothrombin Time 3.3 Ratio INR 4.45 International Normalized Ratio Activated 45.1 H Partial Thrombop last Time Fibrinogen 185.0 L Sodium Level 143 Potassium Level 4.0 Chloride Level 94 L Carbon Dioxide 14 L Level Anion Gap 35 H Blood Urea 13 # Nitrogen Creatinine 1.81 #H Est Glomerular 33 L Filtrat Rate mL/min Glucose Level 128 # Lactic Acid > 24.0 *H Level Calcium Level 8.4 Total Bilirubin 10.8 H Direct Bilirubin 8.20 H Indirect 2.6 H Bilirubin Aspartate Amino 1378 H Transf (AST/SGOT ) Alanine 420 H Aminotransferase (ALT/SGPT) Alkaline 71 Phosphatase Total Protein 6.3 Albumin 4.4 Lipase 5953 H Random 5.2 Vancomycin Level Lab Scanned BLOOD TRANSFUSI Report ON Test 07/24/18 05:00 07/24/18 05:11 07/24/18 08:39 07/24/18 14:01 Blood Gas Blood arterial Specimen Source Arterial Blood 07/24/2018 5:54: Date Drawn 46 AM Arterial Blood 7.403 pH (Temp corrected) Arterial Blood 24.3 L pCO2 (Temp correct) Arterial Blood 133.5 H pO2 (Temp corrected) Arterial Blood 14.8 L HCO3 Arterial Blood -8.8 L Base Excess Arterial Blood 98.6 H Oxygen Saturatio n Newton Test ACCEPTAB Arterial Blood Left Radial Gas Puncture Site Arterial 0.7 Blood Carboxyhem oglobin Arterial Blood 0.3 Methemoglobin Blood Gas A-a O2 51.9 H Differential Oxyhemoglobin 97.6 Percent Blood Gas 37.0 Temperature Blood Gas 16.0 Respiration Rate Blood Gas Actual 18 Respiration Rate Blood Gas VENT - AC Modality FiO2 30.0 Blood Gas Tidal 400.0 Volume Blood Gas Mean 13 Airway Pressure Blood Gas Low 5.0 PEEP Setting Blood Gas 35.0 Inspiratory Pressure Blood Gas XAVI BARCLAY Notified Whom Blood Gas 07/24/2018 6:03: Notified Time 24 AM Bedside Glucose 137 150 115 Medications Medication Current Medications Lorazepam (Ativan) 0.5 mg Q6H PRN IV .ANXIETY; Start 07/22/18 at 10:30 Ondansetron HCl (Zofran Inj) 4 mg Q6H PRN IV NAUSEA/VOMITING; Start 07/22/18 at 10:30 Aspirin (Aspirin) 81 mg DAILY PO ; Start 07/23/18 at 09:00; Status Hold Vancomycin HCl (Vanco Iv Per Pharmacy) VANCOMYCIN PER PHARMACY PER PROTOCOL XX ; Start 07/22/18 at 10:30 Multivit/Ca Carb/ B Cmplx/FA/Prenat (Lalita-Abigail) 1 tab DAILY PO Last administered on 07/24/18 08:29; Admin Dose 1 TAB; Start 07/23/18 at 09:00 Dopamine HCl/ Dextrose 250 ml @ 2.205 mls/ hr TITRATE IV Last administered on 07/22/18 11:31; Admin Dose 15.435 MLS/HR; Start 07/22/18 at 11:30 Phenylephrine HCl 250 ml @ 75 mls/hr TITRATE IV ; Start 07/22/18 at 12:00 Hydrocortisone (Solu-Cortef) 200 mg Q8 IV Last administered on 07/24/18at 14:02; Admin Dose 200 MG; Start 07/22/18 at 14:00 Acetaminophen (Tylenol Supp) 650 mg Q4H PRN [place] TEMP > 37C; Start 07/22/18 at 12:30 Acetaminophen (Tylenol Liquid) 650 mg Q4H PRN PO TEMP > 37C; Start 07/22/18 at 12:30 Meperidine HCl (Demerol) 12.5 mg Q4H PRN IV POST OPERATIVE SHIVERING; Start 07/22/18 at 12:30 Meperidine HCl (Demerol) 25 mg Q4H PRN IV POST OPERATIVE SHIVERING; Start 07/22/18 at 12:30 Eye Lubricant (Akwa Oint) 1 applic Q6 BOTH EYES Last administered on 07/24/18 08:34; Admin Dose 1 APPLIC; Start 07/22/18 at 18:00 Eye Lubricant (Artificial Tears Oph) 2 drop Q6 BOTH EYES Last administered on 07/24/18 08:34; Admin Dose 2 DROP; Start 07/22/18 at 18:00 Norepinephrine 250 ml @ 1.875 mls/ hr TITRATE IV Last administered on 07/23/18 01:01; Admin Dose 22.5 MLS/HR; Start 07/22/18 at 13:00 Docusate Sodium (Colace Liquid Cup) 100 mg BID NGT Last administered on 07/24/18at 08:29; Admin Dose 100 MG; Start 07/22/18 at 22:00 Midazolam HCl 50 ml @ 1 mls/hr TITRATE IV Last administered on 07/24/18at 05:50; Admin Dose 3 MLS/HR; Start 07/23/18 at 02:00 Sevelamer Carbonate (Renvela) 800 mg WITH MEALS PO Last administered on 07/24/18at 11:30; Admin Dose 800 MG; Start 07/23/18 at 07:35 Famotidine (Pepcid) 20 mg DAILY NGT Last administered on 07/24/18at 08:33; Admin Dose 20 MG; Start 07/23/18 at 12:00 Diagnostic Test (Pha) (Accu-Chek) 1 ea Q4 XX Last administered on 07/24/18at 12:27; Admin Dose 1 EA; Start 07/23/18 at 13:00 Albumin Human 100 ml @ 100 mls/hr WITH DIALYSIS PRN IV SBP <90 DURING DIALYSIS Last administered on 07/23/18at 18:07; Admin Dose 100 MLS/HR; Start 07/23/18 at 18:00 Miscellaneous Information (* Miscellaneous Pharmacy Order) Treatment of Hypoglycemia: 1.BG 51... Per protocol XX ; Start 07/24/18 at 02:00 Sodium Bicarbonate 125 meq/Dextrose 1,000 ml @ 50 mls/hr Q20H IV Last administered on 07/24/18at 02:57; Admin Dose 50 MLS/HR; Start 07/24/18 at 03:00 Miscellaneous Information 1 ea NOTE XX ; Start 07/24/18 at 02:30 Glucose (Glutose) 15 gm Q15M PRN PO DECREASED GLUCOSE; Start 07/24/18 at 02:30 Glucose (Glutose) 22.5 gm Q15M PRN PO DECREASED GLUCOSE; Start 07/24/18 at 02:30 Dextrose (D50w Syringe) 25 ml Q15M PRN IV DECREASED GLUCOSE; Start 07/24/18 at 02:30 Dextrose (D50w Syringe) 50 ml Q15M PRN IV DECREASED GLUCOSE; Start 07/24/18 at 02:30 Glucagon (Glucagen) 1 mg Q15M PRN IM DECREASED GLUCOSE; Start 07/24/18 at 02:30 Glucose (Glutose) 15 gm Q15M PRN BUCCAL DECREASED GLUCOSE; Start 07/24/18 at 02:30 Cefepime HCl 50 ml @ 100 mls/hr DAILY IVPB ; Start 07/24/18 at 12:30 Metronidazole (Flagyl) 500 mg Q8 PO Last administered on 07/24/18at 14:28; Admin Dose 500 MG; Start 07/24/18 at 13:00 Total Parenteral Nutrition 1,000 ml @ 40 mls/hr Q24H IV ; Start 07/24/18 at 12:00; Status UNV Past Medical History reviewed Home Meds Reported Medications Sevelamer Hcl* (Renagel*) 800 Mg Tablet, 800 MG PO WITH MEALS, TAB 07/22/18 Folic Acid/Vitamin B Comp W-C (Nephrocaps Capsule) 1 Mg Capsule, 1 MG PO DAILY, CAP 07/22/18 Folic Acid* (Folic Acid*) 1 Mg Tablet, 1 MG PO DAILY, TAB 07/22/18 Diltiazem Hcl* (Cardizem SR*) 60 Mg Capsr, 60 MG PO Q12, #60 CAP 07/22/18 Apixaban* (Eliquis*) 5 Mg Tablet, 5 MG PO BID, TAB 07/22/18 Discontinued Reported Medications Folic Acid/Vitamin B Comp W-C (Nephrocaps Capsule) 1 Mg Capsule, 1 TAB PO DAILY, CAP 11/06/16 Apixaban* (Eliquis*) 5 Mg Tablet, 2.5 MG PO BID, TAB 11/06/16 Carboxymethylcellulose Sodium* (Refresh Tears*) 15 Ml Drops, 1 DROP BOTH EYES TID, #1 EA 11/06/16 Sevelamer Hcl* (Renagel*) 800 Mg Tablet, 800 MG PO WITH MEALS PRN for PRN, TAB 11/06/16 Diltiazem Hcl* (Cardizem SR*) 60 Mg Capsr, 60 MG PO Q12, #60 CAP 11/06/16 Folic Acid* (Folic Acid*) 1 Mg Tablet, 1 MG PO DAILY, TAB 09/17/13 Discontinued Scripts Ondansetron Hcl* (Zofran*) 4 Mg Tablet, 4 MG PO Q6H PRN for NAUSEA AND OR VOMITING, #30 TAB Prov:[employer] 11/06/16 Famotidine* (Pepcid*) 20 Mg Tablet, 20 MG PO BID, #15 TAB Prov:[employer] 11/06/16 Medications Current Medications Lorazepam (Ativan) 0.5 mg Q6H PRN IV .ANXIETY; Start 07/22/18 at 10:30 Ondansetron HCl (Zofran Inj) 4 mg Q6H PRN IV NAUSEA/VOMITING; Start 07/22/18 at 10:30 Aspirin (Aspirin) 81 mg DAILY PO ; Start 07/23/18 at 09:00; Status Hold Vancomycin HCl (Vanco Iv Per Pharmacy) VANCOMYCIN PER PHARMACY PER PROTOCOL XX ; Start 07/22/18 at 10:30 Multivit/Ca Carb/ B Cmplx/FA/Prenat (Lalita-Abigail) 1 tab DAILY PO Last administered on 07/24/18at 08:29; Admin Dose 1 TAB; Start 07/23/18 at 09:00 Dopamine HCl/ Dextrose 250 ml @ 2.205 mls/ hr TITRATE IV Last administered on 07/22/18at 11:31; Admin Dose 15.435 MLS/HR; Start 07/22/18 at 11:30 Phenylephrine HCl 250 ml @ 75 mls/hr TITRATE IV ; Start 07/22/18 at 12:00 Hydrocortisone (Solu-Cortef) 200 mg Q8 IV Last administered on 07/24/18at 14:02; Admin Dose 200 MG; Start 07/22/18 at 14:00 Acetaminophen (Tylenol Supp) 650 mg Q4H PRN [place] TEMP > 37C; Start 07/22/18 at 12:30 Acetaminophen (Tylenol Liquid) 650 mg Q4H PRN PO TEMP > 37C; Start 07/22/18 at 12:30 Meperidine HCl (Demerol) 12.5 mg Q4H PRN IV POST OPERATIVE SHIVERING; Start 07/22/18 at 12:30 Meperidine HCl (Demerol) 25 mg Q4H PRN IV POST OPERATIVE SHIVERING; Start 07/22/18 at 12:30 Eye Lubricant (Akwa Oint) 1 applic Q6 BOTH EYES Last administered on 07/24/18at 08:34; Admin Dose 1 APPLIC; Start 07/22/18 at 18:00 Eye Lubricant (Artificial Tears Oph) 2 drop Q6 BOTH EYES Last administered on 07/24/18 08:34; Admin Dose 2 DROP; Start 07/22/18 at 18:00 Norepinephrine 250 ml @ 1.875 mls/ hr TITRATE IV Last administered on 07/23/18 01:01; Admin Dose 22.5 MLS/HR; Start 07/22/18 at 13:00 Docusate Sodium (Colace Liquid Cup) 100 mg BID NGT Last administered on 07/24/18 08:29; Admin Dose 100 MG; Start 07/22/18 at 22:00 Midazolam HCl 50 ml @ 1 mls/hr TITRATE IV Last administered on 07/24/18 05:50; Admin Dose 3 MLS/HR; Start 07/23/18 at 02:00 Sevelamer Carbonate (Renvela) 800 mg WITH MEALS PO Last administered on 07/24/18 11:30; Admin Dose 800 MG; Start 07/23/18 at 07:35 Famotidine (Pepcid) 20 mg DAILY NGT Last administered on 07/24/18 08:33; Admin Dose 20 MG; Start 07/23/18 at 12:00 Diagnostic Test (Pha) (Accu-Chek) 1 ea Q4 XX Last administered on 07/24/18 12 :27; Admin Dose 1 EA; Start 07/23/18 at 13:00 Albumin Human 100 ml @ 100 mls/hr WITH DIALYSIS PRN IV SBP <90 DURING DIALYSIS Last administered on 07/23/18 18:07; Admin Dose 100 MLS/HR; Start 07/23/18 at 18:00 Miscellaneous Information (* Miscellaneous Pharmacy Order) Treatment of Hypoglycemia: 1.BG 51... Per protocol XX ; Start 07/24/18 at 02:00 Sodium Bicarbonate 125 meq/Dextrose 1,000 ml @ 50 mls/hr Q20H IV Last administered on 07/24/18 02:57; Admin Dose 50 MLS/HR; Start 07/24/18 at 03:00 Miscellaneous Information 1 ea NOTE XX ; Start 07/24/18 at 02:30 Glucose (Glutose) 15 gm Q15M PRN PO DECREASED GLUCOSE; Start 07/24/18 at 02:30 Glucose (Glutose) 22.5 gm Q15M PRN PO DECREASED GLUCOSE; Start 07/24/18 at 02:30 Dextrose (D50w Syringe) 25 ml Q15M PRN IV DECREASED GLUCOSE; Start 07/24/18 at 02:30 Dextrose (D50w Syringe) 50 ml Q15M PRN IV DECREASED GLUCOSE; Start 07/24/18 at 02:30 Glucagon (Glucagen) 1 mg Q15M PRN IM DECREASED GLUCOSE; Start 07/24/18 at 02:30 Glucose (Glutose) 15 gm Q15M PRN BUCCAL DECREASED GLUCOSE; Start 07/24/18 at 02:30 Cefepime HCl 50 ml @ 100 mls/hr DAILY IVPB ; Start 07/24/18 at 12:30 Metronidazole (Flagyl) 500 mg Q8 PO Last administered on 07/24/18at 14:28; Admin Dose 500 MG; Start 07/24/18 at 13:00 Total Parenteral Nutrition 1,000 ml @ 40 mls/hr Q24H IV ; Start 07/24/18 at 12:00; Status UNV Allergies: Coded Allergies: ciprofloxacin (Unverified Allergy, Severe, 07/22/18) heparin (Unverified Allergy, Severe, 07/22/18) levofloxacin (Unverified Allergy, Severe, 07/22/18) potassium (Unverified Allergy, Unknown, 07/22/18) Uncoded Allergies: TAPE (Allergy, Mild, 11/06/16) Past Surgical History reviewed Past Surgical Hx: other (Including but not limited to pacemaker, dialysis graft) Social History reviewed Alcohol Use: none Smoking Status: Never smoker LUCIA CARRILLO NP July 24, 2018 14:40 SHELBY BLOCK July 25, 2018 06:30
--- NOTE | 2018-07-24 15:22 | CONS ---
Assessment/Plan Assessment/Plan Hospital Course (Demo Recall) Severe shock-improving Likely sepsis Cardiomyopathy End-stage renal disease on hemodialysis PEA cardiac arrest Respiratory failure status post intubation Mildly elevated troponin Acidosis, improving Acute blood loss anemia Thrombocytopenia Acute CVA -Patient has required IV pressor over the past 24 hours but currently is off with systolic blood pressure in the 120s. Blood pressure remained stable currently undergoing hemodialysis -We will continue to hold all antihypertensives -Antibiotics as per infectious disease, ID work-up. As per family, patient with recent bacteremia at outside facility and etiology was unclear. -Aspirin stopped secondary to worsening anemia and thrombocytopenia -Fluid management and electrolytes as per nephrology -Pulmonary for vent management -Given acute CVA, patient pending neurology evaluation -Discussed with patient's brother and mother at bedside -Greater than 33 minutes of critical care time taken in the care of this patient Consultation Date/Type/Reason Admit Date/Time July 22, 2018 at 09:09 Initial Consult Date 07/23/18 Type of Consult Cardiology Requesting Provider: TRINITY ELENA Date/Time of Note DATE: 07/24/18 TIME: 15:17 24 HR Interval Summary Free Text/Dictation Patient seen and examined. In discussion with nurse and family, with sedation vacation patient opens her eyes and moves her extremities Exam/Review of Systems Vital Signs Vitals Vital Signs Date Temp Pulse Resp B/P (MAP) Pulse Ox O2 O2 Flow FiO2 Time Delivery Rate 07/24/18 90 12:00 07/24/18 100 30 11:10 07/23/18 120/80 21:23 (93) 07/23/18 Mechanical 18:00 Ventilator 07/23/18 97.2 15:45 07/22/18 2.0 10:00 Intake and Output 07/23/18 07/23/18 07/24/18 1515:00 23:00 07:00 IntakeIntake Total 837.25 ml 452.00 ml 78.35 ml OutputOutput Total 500 ml BalanceBalance 837.25 ml -48.00 ml 78.35 ml Exam Exam Sedated and intubated, undergoing hemodialysis, nurse and family at bedside Head: normocephalic ENMT: intubated Respiratory: other (course bs, no wheeze) Cardiovascular: regular rate and rhythm (S1-S2 heard), systolic murmur Gastrointestinal: soft, bowel sounds, distended, other (No grimacing with palpation) Extremities: edema (Mild) Labs Result Diagram: 07/24/18 0410 07/24/18 0410 Results 24hrs Laboratory Tests Test 07/23/18 16:07 07/23/18 16:37 07/23/18 18:20 07/23/18 21:07 Blood Gas Blood arterial Specimen Source Arterial Blood 07/23/2018 4:30: Date Drawn 04 PM Arterial Blood 7.029 *L pH (Temp corrected) Arterial Blood 21.5 L pCO2 (Temp correct) Arterial Blood 146.0 H pO2 (Temp corrected) Arterial Blood 5.5 *L HCO3 Arterial Blood -23.6 L Base Excess Arterial Blood 98.0 Oxygen Saturatio n Newton Test ACCEPTAB Arterial Blood Right Radial Gas Puncture Site Arterial 0.3 Blood Carboxyhem oglobin Arterial Blood 0.3 Methemoglobin Blood Gas A-a O2 42.6 H Differential Oxyhemoglobin 97.4 Percent Blood Gas 37.0 Temperature Blood Gas 16.0 Respiration Rate Blood Gas Actual 21 Respiration Rate Blood Gas VENT - AC Modality FiO2 30.0 Blood Gas Tidal 400.0 Volume Blood Gas Low 5.0 PEEP Setting Blood Gas JUNI JACKSON Critical Value Read Back Blood Gas FAMILIASLIPPER MAKER Notified Whom Blood Gas 07/23/2018 4:53: Notified Time 09 PM Bedside Glucose 111 71 White Blood 12.4 H Count Red Blood Count 2.25 #L Hemoglobin 7.7 L Hematocrit 23.6 L Mean Corpuscular 104.9 H Volume Mean Corpuscular 34.2 H Hemoglobin Mean Corpuscular 32.6 Hemoglobin Isadora nt Red Cell 27.4 H Distribution Width Platelet Count 19 #*L Mean Platelet 14.8 H Volume Immature 0.900 H Granulocytes % Neutrophils % 85.8 H Lymphocytes % 6.1 L Monocytes % 7.1 Eosinophils % 0.0 Basophils % 0.1 Nucleated Red 1.1 H Blood Cells % Immature 0.110 H Granulocytes # Neutrophils # 10.6 H Lymphocytes # 0.8 Monocytes # 0.9 Eosinophils # 0.0 Basophils # 0.0 Nucleated Red 0.1 H Blood Cells # Activated 43.8 H Partial Thrombop last Time Mix PTT Normal 33.2 Plasma Immediate Mix PTT Normal 36.5 Plasma 1 Hour Immunoglobulin A 132 Immunoglobulin G 741 Immunoglobulin M 71 Test 07/24/18 01:48 07/24/18 02:49 07/24/18 04:10 07/24/18 04:50 Bedside Glucose 20 *L 181 White Blood 12.3 H Count Red Blood Count 2.32 L Hemoglobin 7.8 L Hematocrit 24.0 L Mean Corpuscular 103.4 H Volume Mean Corpuscular 33.6 H Hemoglobin Mean Corpuscular 32.5 Hemoglobin Isadora nt Red Cell 28.7 H Distribution Width Platelet Count 18 *L Mean Platelet Volume Immature 0.700 H Granulocytes % Neutrophils % 82.4 H Lymphocytes % 6.2 L Monocytes % 10.6 Eosinophils % 0.0 Basophils % 0.1 Nucleated Red 3.7 H Blood Cells % Immature 0.090 H Granulocytes # Neutrophils # 10.1 H Lymphocytes # 0.8 Monocytes # 1.3 H Eosinophils # 0.0 Basophils # 0.0 Nucleated Red 0.5 H Blood Cells # Prothrombin Time 42.3 H Prothrombin Time 3.3 Ratio INR 4.45 International Normalized Ratio Activated 45.1 H Partial Thrombop last Time Fibrinogen 185.0 L Sodium Level 143 Potassium Level 4.0 Chloride Level 94 L Carbon Dioxide 14 L Level Anion Gap 35 H Blood Urea 13 # Nitrogen Creatinine 1.81 #H Est Glomerular 33 L Filtrat Rate mL/min Glucose Level 128 # Lactic Acid > 24.0 *H Level Calcium Level 8.4 Total Bilirubin 10.8 H Direct Bilirubin 8.20 H Indirect 2.6 H Bilirubin Aspartate Amino 1378 H Transf (AST/SGOT ) Alanine 420 H Aminotransferase (ALT/SGPT) Alkaline 71 Phosphatase Total Protein 6.3 Albumin 4.4 Lipase 5953 H Random 5.2 Vancomycin Level Lab Scanned BLOOD TRANSFUSI Report ON Test 07/24/18 05:00 07/24/18 05:11 07/24/18 08:39 07/24/18 14:01 Blood Gas Blood arterial Specimen Source Arterial Blood 07/24/2018 5:54: Date Drawn 46 AM Arterial Blood 7.403 pH (Temp corrected) Arterial Blood 24.3 L pCO2 (Temp correct) Arterial Blood 133.5 H pO2 (Temp corrected) Arterial Blood 14.8 L HCO3 Arterial Blood -8.8 L Base Excess Arterial Blood 98.6 H Oxygen Saturatio n Newton Test ACCEPTAB Arterial Blood Left Radial Gas Puncture Site Arterial 0.7 Blood Carboxyhem oglobin Arterial Blood 0.3 Methemoglobin Blood Gas A-a O2 51.9 H Differential Oxyhemoglobin 97.6 Percent Blood Gas 37.0 Temperature Blood Gas 16.0 Respiration Rate Blood Gas Actual 18 Respiration Rate Blood Gas VENT - AC Modality FiO2 30.0 Blood Gas Tidal 400.0 Volume Blood Gas Mean 13 Airway Pressure Blood Gas Low 5.0 PEEP Setting Blood Gas 35.0 Inspiratory Pressure Blood Gas XAVI BARCLAY Notified Whom Blood Gas 07/24/2018 6:03: Notified Time 24 AM Bedside Glucose 137 150 115 Test 07/24/18 14:51 White Blood Pending Count Red Blood Count Pending Hemoglobin Pending Hematocrit Pending Mean Corpuscular Pending Volume Mean Corpuscular Pending Hemoglobin Mean Corpuscular Pending Hemoglobin Isadora nt Red Cell Pending Distribution Width Platelet Count Pending Mean Platelet Pending Volume Medications Medications Current Medications Lorazepam (Ativan) 0.5 mg Q6H PRN IV .ANXIETY; Start 07/22/18 at 10:30 Ondansetron HCl (Zofran Inj) 4 mg Q6H PRN IV NAUSEA/VOMITING; Start 07/22/18 at 10:30 Aspirin (Aspirin) 81 mg DAILY PO ; Start 07/23/18 at 09:00; Status Hold Vancomycin HCl (Vanco Iv Per Pharmacy) VANCOMYCIN PER PHARMACY PER PROTOCOL XX ; Start 07/22/18 at 10:30 Multivit/Ca Carb/ B Cmplx/FA/Prenat (Lalita-Abigail) 1 tab DAILY PO Last administered on 07/24/18at 08:29; Admin Dose 1 TAB; Start 07/23/18 at 09:00 Dopamine HCl/ Dextrose 250 ml @ 2.205 mls/ hr TITRATE IV Last administered on 07/22/18at 11:31; Admin Dose 15.435 MLS/HR; Start 07/22/18 at 11:30 Phenylephrine HCl 250 ml @ 75 mls/hr TITRATE IV ; Start 07/22/18 at 12:00 Hydrocortisone (Solu-Cortef) 200 mg Q8 IV Last administered on 07/24/18at 14:02; Admin Dose 200 MG; Start 07/22/18 at 14:00 Acetaminophen (Tylenol Supp) 650 mg Q4H PRN PA TEMP > 37C; Start 07/22/18 at 12:30 Acetaminophen (Tylenol Liquid) 650 mg Q4H PRN PO TEMP > 37C; Start 07/22/18 at 12:30 Meperidine HCl (Demerol) 12.5 mg Q4H PRN IV POST OPERATIVE SHIVERING; Start 07/22/18 at 12:30 Meperidine HCl (Demerol) 25 mg Q4H PRN IV POST OPERATIVE SHIVERING; Start 07/22/18 at 12:30 Eye Lubricant (Akwa Oint) 1 applic Q6 BOTH EYES Last administered on 07/24/18 08:34; Admin Dose 1 APPLIC; Start 07/22/18 at 18:00 Eye Lubricant (Artificial Tears Oph) 2 drop Q6 BOTH EYES Last administered on 07/24/18 08:34; Admin Dose 2 DROP; Start 07/22/18 at 18:00 Norepinephrine 250 ml @ 1.875 mls/ hr TITRATE IV Last administered on 07/23/18 01:01; Admin Dose 22.5 MLS/HR; Start 07/22/18 at 13:00 Docusate Sodium (Colace Liquid Cup) 100 mg BID NGT Last administered on 07/24/18 08:29; Admin Dose 100 MG; Start 07/22/18 at 22:00 Midazolam HCl 50 ml @ 1 mls/hr TITRATE IV Last administered on 07/24/18 05:50; Admin Dose 3 MLS/HR; Start 07/23/18 at 02:00 Sevelamer Carbonate (Renvela) 800 mg WITH MEALS PO Last administered on 07/24/18 11:30; Admin Dose 800 MG; Start 07/23/18 at 07:35 Famotidine (Pepcid) 20 mg DAILY NGT Last administered on 07/24/18 08:33; Admin Dose 20 MG; Start 07/23/18 at 12:00 Diagnostic Test (Pha) (Accu-Chek) 1 ea Q4 XX Last administered on 07/24/18 12:27; Admin Dose 1 EA; Start 07/23/18 at 13:00 Albumin Human 100 ml @ 100 mls/hr WITH DIALYSIS PRN IV SBP <90 DURING DIALYSIS Last administered on 07/23/18 18:07; Admin Dose 100 MLS/HR; Start 07/23/18 at 18:00 Miscellaneous Information (* Miscellaneous Pharmacy Order) Treatment of Hypoglycemia: 1.BG 51... Per protocol XX ; Start 07/24/18 at 02:00 Sodium Bicarbonate 125 meq/Dextrose 1,000 ml @ 50 mls/hr Q20H IV Last administered on 07/24/18at 02:57; Admin Dose 50 MLS/HR; Start 07/24/18 at 03:00 Miscellaneous Information 1 ea NOTE XX ; Start 07/24/18 at 02:30 Glucose (Glutose) 15 gm Q15M PRN PO DECREASED GLUCOSE; Start 07/24/18 at 02:30 Glucose (Glutose) 22.5 gm Q15M PRN PO DECREASED GLUCOSE; Start 07/24/18 at 02:30 Dextrose (D50w Syringe) 25 ml Q15M PRN IV DECREASED GLUCOSE; Start 07/24/18 at 02:30 Dextrose (D50w Syringe) 50 ml Q15M PRN IV DECREASED GLUCOSE; Start 07/24/18 at 02:30 Glucagon (Glucagen) 1 mg Q15M PRN IM DECREASED GLUCOSE; Start 07/24/18 at 02:30 Glucose (Glutose) 15 gm Q15M PRN BUCCAL DECREASED GLUCOSE; Start 07/24/18 at 02 :30 Cefepime HCl 50 ml @ 100 mls/hr DAILY IVPB ; Start 07/24/18 at 12:30 Metronidazole (Flagyl) 500 mg Q8 PO Last administered on 07/24/18at 14:28; Admin Dose 500 MG; Start 07/24/18 at 13:00 Total Parenteral Nutrition 1,000 ml @ 40 mls/hr Q24H IV ; Start 07/24/18 at 12:00; Status Jonathan Wei DO July 24, 2018 15:22
[2018-07-24] MEDS: CEFEPIME 1GM/50 ML (PMX) 50 ML IVPB SCH (15:30)
--- NOTE | 2018-07-24 20:15 | CONS ---
DATE OF ADMISSION: 07/22/2018 DATE OF CONSULTATION: TYPE OF CONSULTATION: Gastroenterology. REASON FOR CONSULTATION: Abnormal LFT, possible pancreatitis. HISTORY OF PRESENT ILLNESS: A 27-year-old female with history of rhinitis pigmentosa, legally blind, end-stage renal disease on dialysis, was brought to the emergency room because of confusional state. The patient was hospitalized on 07/22/2018. The diagnosis of sepsis was made and she was placed on appropriate antibiotics. She also had a history of MSSA bacteremia and was hospitalized at [facility]. The patient was on rifampin then and vancomycin and rifampin was stopped. I do n ot have the clearcut date on that. Other medical history includes she is status post pacemaker, card iomyopathy, chronic anemia, atrial fibrillation. The case was discussed with the staff. The patient occasionally responds to command. No gross GI bleeding was noted. ALLERGIES: 1. CIPRO 2. HEPARIN. 3. LEVOFLOXACIN. 4. ACETAMINOPHEN. 5. POTASSIUM. FAMILY HISTORY: Positive for heart disease and cancer. SOCIAL HISTORY: Does not smoke or drink. Lives at home. REVIEW OF SYSTEMS: Unable to do it. I am discussing with the brother and the mother. No history of liver disease in the past. No history of hepatitis. No history of alcohol consumption. PHYSICAL EXAMINATION NEUROLOGIC: The patient is intubated. The patient is mentally obtunded. HEENT: Face and the lower lids are all swollen. CARDIOVASCULAR: No murmur, gallop or click. LUNGS: Air entry diminished at both bases. ABDOMEN: Benign. EXTREMITIES: No edema. SKIN: She has got diffuse ecchymosis. LABORATORY DATA: I reviewed it. The patient's platelet count is 15. It was 72 on the first day and after that, it dropped down to 26 on the second day. BUN is 13, creatinine is 1.81. Lactic acid is very high at 24. Total bilirubin is 10.8. SGOT is 1378. SGPT is 420. Alkaline phosphatase is jus t 71. Her lipase was 5953. DIAGNOSTIC DATA: The patient had CAT scan of the abdomen and pelvis which failed to show any pancrea titis. No obstructing lesion of the liver. Had mild hepatomegaly. Biliary system was otherwise nor mal. IMPRESSION: 1. Sepsis, multifocal pneumonia. 2. Vent dependent respiratory failure. 3. End-stage renal disease on dialysis. 4. Severe thrombocytopenia. 5. Increased lipase, but there is no evidence of pancreatitis on the CAT scan. Symptom analysis can not be done regarding the abdominal pain. 6. Elevated troponin. 7. Paroxysmal atrial fibrillation. 8. Status post pacemaker AICD. 9. Anemia, megaloblastic. 10. Malnutrition. 11. History of methicillin-susceptible Staphylococcus aureus bacteremia. There was no evidence of a ny vegetation on ROSANNE and the patient's ejection fraction is 45%. 12. Coagulopathy. 13. Jaundice. PLAN: 1. Continue all the supportive care. 2. ID follow up with sepsis and antibiotic as per ID. 3. No hepatotoxic medication. 4. Monitor total bilirubin, hematocrit and platelet count and lactic acid closely. 5. If patient bleeds, then may need fresh frozen plasma to correct the coagulopathy. 6. We will also send for ammonia level to make sure the liver disease is not contributing for enceph alopathy. So far her jaundice is concerned, most probably related to septic hepatopathy. Again rifa mpin induced liver disease cannot be absolutely ruled out. I will send for other chronic liver disea se marker which I doubted. We will follow closely. Dictated By: BREA MOSQUERA/NTS Conf#: [id number] DID#: [id number] CC: TRINITY ELENA MD; GIOVANNA TSANG;*EndCC*
[2018-07-24] MEDS: PHYTONADIONE 5 MG in DEXTROSE 5% 50 ML IV SCH (21:05)
[2018-07-25] VITALS (33 sets, daily range): BP systolic 105–135; BP diastolic 70–107; PULSE 60–94; RESP 0–22
[2018-07-25] MEDS: ACCU-CHEK XX SCH ×6 (00:47→20:55)
[2018-07-25] MEDS: PHYTONADIONE 5 MG in DEXTROSE 5% 50 ML IV SCH ×2 (02:21→08:10)
[2018-07-25] MEDS: ARTIFICIAL TEARS 15 ML OPH BOTH EYES SCH ×4 (05:16→23:42)
[2018-07-25] MEDS: HYDROCORTISONE 250 MG INJ IV SCH ×3 (05:16→21:42)
[2018-07-25] MEDS: metroNIDAZOLE 500 MG TAB PO SCH ×3 (05:16→21:42)
[2018-07-25] MEDS: OCULAR LUBRICANT 3.5 GM OPH OINT BOTH EYES SCH ×4 (05:16→23:42)
[2018-07-25] MEDS: MIDAZOLAM (DRIP) 50 mg/50 mL 50 ML IV SCH (05:18)
[2018-07-25] MEDS: SEVELAMER CARBONATE 800 MG TABLET PO SCH ×2 (06:36→11:30)
[2018-07-25] MEDS: MULTIVIT/CA CARB/B CMPLX/FA TAB PO SCH (08:11)
[2018-07-25] MEDS: FAMOTIDINE 20 MG TAB NGT SCH (08:11)
[2018-07-25] MEDS: CEFEPIME 1GM/50 ML (PMX) 50 ML IVPB SCH (08:11)
[2018-07-25] MEDS: DOCUSATE SODIUM 10 MG/ML (10ML CUP) NGT SCH ×2 (08:11→20:56)
--- NOTE | 2018-07-25 08:53 | CONS ---
Consult Date/Type/Reason Admit Date/Time July 22, 2018 at 09:09 Initial Consult Date 07/23/18 Type of Consult Pulmonary Requesting Provider: TRINITY ELENA Date/Time of Note DATE: 07/25/18 TIME: 08:46 Subjective Remains orally intubated on mechanical ventilation. Continues Versed. Currently hemodynamically stable. Objective Vital Signs Date Temp Pulse Resp B/P (MAP) Pulse Ox O2 O2 Flow FiO2 Time Delivery Rate 07/25/18 86 12 130/93 100 06:00 (105) 07/25/18 30 04:59 07/25/18 97.9 04:00 07/24/18 Mechanical 18:00 Ventilator 07/22/18 2.0 10:00 Intake and Output 07/24/18 07/24/18 07/25/18 1515:00 23:00 07:00 IntakeIntake Total 1385 ml 1059.5 ml 421.5 ml OutputOutput Total 4600 ml BalanceBalance -3215 ml 1059.5 ml 421.5 ml Exam GENERAL: Young lady orally intubated on mechanical ventilation VITAL SIGNS: per chart NECK: Supple. No JVD or lymphadenopathy. CARDIAC EXAM: S1, S2. No added sounds or murmurs. CHEST: Diminished air entry bilaterally ABDOMEN: Soft, nontender. No guarding or rebound. EXTREMITIES: No cyanosis, clubbing edema +1 NEUROLOGIC: Unable to assess Vent Setting Ventilator Support Mode: AC Fraction of Inspired Oxygen pe: 30 Positive End Expiratory Pressu: 5.0 Results/Medications Result Diagram: 07/25/18 0400 07/25/18 0400 Results 24 hrs Laboratory Tests Test 07/24/18 12:00 07/24/18 14:01 07/24/18 14:51 07/24/18 19:01 Blood Gas Blood arterial Specimen Source Arterial Blood 07/24/2018 4:35: Date Drawn 40 PM Arterial Blood 7.617 *H pH (Temp corrected) Arterial Blood 24.4 L pCO2 (Temp correct) Arterial Blood 133.0 H pO2 (Temp corrected) Arterial Blood 24.4 HCO3 Arterial Blood 3.9 H Base Excess Arterial Blood 98.8 H Oxygen Saturatio n [place] Test N/A Arterial Blood A-Line Gas Puncture Site Arterial 0.5 Blood Carboxyhem oglobin Arterial Blood 0.2 Methemoglobin Blood Gas A-a O2 52.2 H Differential Oxyhemoglobin 98.1 Percent Blood Gas 37.0 Temperature Blood Gas 16.0 Respiration Rate Blood Gas Actual 16 Respiration Rate Blood Gas VENT - AC Modality FiO2 30.0 Blood Gas Tidal 400.0 Volume Blood Gas Low 5.0 PEEP Setting Blood Gas Y ABLE RN Critical Value Read Back Blood Gas DT Notified Whom Blood Gas 07/24/2018 4:49: Notified Time 36 PM Bedside Glucose 115 145 White Blood 11.4 H Count Red Blood Count 3.06 #L Hemoglobin 10.0 #L Hematocrit 28.6 L Mean Corpuscular 93.5 Volume Mean Corpuscular 32.7 Hemoglobin Mean Corpuscular 35.0 Hemoglobin Isadora nt Red Cell 23.9 H Distribution Width Platelet Count 15 *L Mean Platelet Volume Immature 1.000 H Granulocytes % Neutrophils % 84.6 H Lymphocytes % 7.7 L Monocytes % 6.6 Eosinophils % 0.0 Basophils % 0.1 Nucleated Red 2.8 H Blood Cells % Immature 0.110 H Granulocytes # Neutrophils # 9.6 H Lymphocytes # 0.9 Monocytes # 0.8 Eosinophils # 0.0 Basophils # 0.0 Nucleated Red 0.3 H Blood Cells # Test 07/24/18 19:10 07/24/18 20:51 07/25/18 00:52 07/25/18 04:00 Blood Gas Blood arterial Specimen Source Arterial Blood 07/24/2018 8:00: Date Drawn 00 PM Arterial Blood 7.535 H pH (Temp corrected) Arterial Blood 25.3 L pCO2 (Temp correct) Arterial Blood 137.2 H pO2 (Temp corrected) Arterial Blood 20.9 L HCO3 Arterial Blood -0.7 Base Excess Arterial Blood 98.7 H Oxygen Saturatio n [place] Test N/A Arterial Blood A-Line Gas Puncture Site Arterial 0.1 Blood Carboxyhem oglobin Arterial Blood 0.2 Methemoglobin Blood Gas A-a O2 47.0 H Differential Oxyhemoglobin 98.4 Percent Blood Gas 37.0 Temperature Blood Gas 12.0 Respiration Rate Blood Gas Actual 14 Respiration Rate Blood Gas VENT - AC Modality FiO2 30.0 Blood Gas Tidal 400.0 Volume Blood Gas Low 5.0 PEEP Setting Blood Gas MA Notified Whom Blood Gas 07/24/2018 8:07: Notified Time 00 PM Bedside Glucose 157 152 White Blood 12.6 H Count Red Blood Count 3.22 L Hemoglobin 10.5 L Hematocrit 30.9 L Mean Corpuscular 96.0 Volume Mean Corpuscular 32.6 Hemoglobin Mean Corpuscular 34.0 Hemoglobin Isadora nt Red Cell 25.5 H Distribution Width Platelet Count 76 #L Mean Platelet 13.1 H Volume Immature 1.300 H Granulocytes % Neutrophils % Lymphocytes % Monocytes % Eosinophils % Basophils % Nucleated Red 4.4 H Blood Cells % Immature 0.160 H Granulocytes # Neutrophils # Lymphocytes # Monocytes # Eosinophils # Basophils # Nucleated Red Blood Cells # Prothrombin Time 27.9 #H Prothrombin Time 2.2 Ratio INR 2.60 International Normalized Ratio Activated 36.5 H Partial Thrombop last Time Fibrinogen 308.0 # Sodium Level 139 Potassium Level 3.3 L Chloride Level 89 L Carbon Dioxide 23 Level Anion Gap 27 #H Blood Urea 13 Nitrogen Creatinine 1.29 H Est Glomerular 49 L Filtrat Rate mL/min Glucose Level 154 Calcium Level 7.9 L Phosphorus Level 2.0 L Magnesium Level 1.9 Total Bilirubin 10.7 H Direct Bilirubin 7.40 H Indirect 3.3 H Bilirubin Aspartate Amino 3543 H Transf (AST/SGOT ) Alanine 928 H Aminotransferase (ALT/SGPT) Alkaline 94 Phosphatase Ammonia 25 Total Protein 7.5 # Albumin 4.7 Globulin 2.80 Albumin/Globulin 1.67 Ratio Lipase 3022 H Test 07/25/18 04:57 07/25/18 05:00 07/25/18 05:36 Lab Scanned BLOOD TRANSFUSI Report ON Blood Gas Blood arterial Specimen Source Arterial Blood 07/25/2018 5:30: Date Drawn 00 AM Arterial Blood 7.456 H pH (Temp corrected) Arterial Blood 31.4 L pCO2 (Temp correct) Arterial Blood 135.9 H pO2 (Temp corrected) Arterial Blood 21.6 L HCO3 Arterial Blood -1.5 Base Excess Arterial Blood 98.7 H Oxygen Saturatio n [place] Test N/A Arterial Blood A-Line Gas Puncture Site Arterial 0.3 Blood Carboxyhem oglobin Arterial Blood 0.2 Methemoglobin Blood Gas A-a O2 113.2 H Differential Oxyhemoglobin 98.2 Percent Blood Gas 37.0 Temperature Blood Gas 12.0 Respiration Rate Blood Gas Actual 13 Respiration Rate Blood Gas VENT - AC Modality FiO2 40.0 Blood Gas Tidal 400.0 Volume Blood Gas Low 5.0 PEEP Setting Blood Gas CT Notified Whom Blood Gas 07/25/2018 5:47: Notified Time 47 AM Bedside Glucose 161 Medications Current Medications Lorazepam (Ativan) 0.5 mg Q6H PRN IV .ANXIETY; Start 07/22/18 at 10:30 Ondansetron HCl (Zofran Inj) 4 mg Q6H PRN IV NAUSEA/VOMITING; Start 07/22/18 at 10:30 Aspirin (Aspirin) 81 mg DAILY PO ; Start 07/23/18 at 09:00; Status Hold Vancomycin HCl (Vanco Iv Per Pharmacy) VANCOMYCIN PER PHARMACY PER PROTOCOL XX ; Start 07/22/18 at 10:30 Multivit/Ca Carb/ B Cmplx/FA/Prenat (Lalita-Abigail) 1 tab DAILY PO Last administered on 07/25/18at 08:11; Admin Dose 1 TAB; Start 07/23/18 at 09:00 Dopamine HCl/ Dextrose 250 ml @ 2.205 mls/ hr TITRATE IV Last administered on 07/22/18at 11:31; Admin Dose 15.435 MLS/HR; Start 07/22/18 at 11:30 Phenylephrine HCl 250 ml @ 75 mls/hr TITRATE IV ; Start 07/22/18 at 12:00 Hydrocortisone (Solu-Cortef) 200 mg Q8 IV Last administered on 07/25/18at 05:16; Admin Dose 200 MG; Start 07/22/18 at 14:00 Acetaminophen (Tylenol Supp) 650 mg Q4H PRN [place] TEMP > 37C; Start 07/22/18 at 12:30 Acetaminophen (Tylenol Liquid) 650 mg Q4H PRN PO TEMP > 37C; Start 07/22/18 at 12:30 Meperidine HCl (Demerol) 12.5 mg Q4H PRN IV POST OPERATIVE SHIVERING; Start 07/22/18 at 12:30 Meperidine HCl (Demerol) 25 mg Q4H PRN IV POST OPERATIVE SHIVERING; Start 07/22/18 at 12:30 Eye Lubricant (Akwa Oint) 1 applic Q6 BOTH EYES Last administered on 07/25/18at 05:16; Admin Dose 1 APPLIC; Start 07/22/18 at 18:00 Eye Lubricant (Artificial Tears Oph) 2 drop Q6 BOTH EYES Last administered on 07/25/18at 05:16; Admin Dose 2 DROP; Start 07/22/18 at 18:00 Norepinephrine 250 ml @ 1.875 mls/ hr TITRATE IV Last administered on at 01:01; Admin Dose 22.5 MLS/HR; Start 07/22/18 at 13:00 Docusate Sodium (Colace Liquid Cup) 100 mg BID NGT Last administered on 07/25/18 08:11; Admin Dose 100 MG; Start 07/22/18 at 22:00 Midazolam HCl 50 ml @ 1 mls/hr TITRATE IV Last administered on 07/25/18 05:18; Admin Dose 3 MLS/HR; Start 07/23/18 at 02:00 Sevelamer Carbonate (Renvela) 800 mg WITH MEALS PO Last administered on 07/03 06:36; Admin Dose 800 MG; Start 07/23/18 at 07:35 Famotidine (Pepcid) 20 mg DAILY NGT Last administered on 07/25/18 08:11; Admin Dose 20 MG; Start 07/23/18 at 12:00 Diagnostic Test (Pha) (Accu-Chek) 1 ea Q4 XX Last administered on 07/25/18 08:11; Admin Dose 1 EA; Start 07/23/18 at 13:00 Albumin Human 100 ml @ 100 mls/hr WITH DIALYSIS PRN IV SBP <90 DURING DIALYSIS Last administered on 07/23/18 18:07; Admin Dose 100 MLS/HR; Start 07/23/18 at 18:00 Miscellaneous Information (* Miscellaneous Pharmacy Order) Treatment of Hypoglycemia: 1.BG 51... Per protocol XX ; Start 07/24/18 at 02:00 Sodium Bicarbonate 125 meq/Dextrose 1,000 ml @ 50 mls/hr Q20H IV Last administered on 07/24/18at 23:50; Admin Dose 50 MLS/HR; Start 07/24/18 at 03:00 Miscellaneous Information 1 ea NOTE XX ; Start 07/24/18 at 02:30 Glucose (Glutose) 15 gm Q15M PRN PO DECREASED GLUCOSE; Start 07/24/18 at 02:30 Glucose (Glutose) 22.5 gm Q15M PRN PO DECREASED GLUCOSE; Start 07/24/18 at 02:30 Dextrose (D50w Syringe) 25 ml Q15M PRN IV DECREASED GLUCOSE; Start 07/24/18 at 02:30 Dextrose (D50w Syringe) 50 ml Q15M PRN IV DECREASED GLUCOSE; Start 07/24/18 at 02:30 Glucagon (Glucagen) 1 mg Q15M PRN IM DECREASED GLUCOSE; Start 07/24/18 at 02:30 Glucose (Glutose) 15 gm Q15M PRN BUCCAL DECREASED GLUCOSE; Start 07/24/18 at 02:30 Cefepime HCl 50 ml @ 100 mls/hr DAILY IVPB Last administered on 07/25/18at 08:11; Admin Dose 100 MLS/HR; Start 07/24/18 at 12:30 Metronidazole (Flagyl) 500 mg Q8 PO Last administered on 07/25/18at 05:16; Admin Dose 500 MG; Start 07/24/18 at 13:00 Total Parenteral Nutrition 1,000 ml @ 40 mls/hr Q24H IV ; Start 07/24/18 at 12:00; Status UNV Phytonadione 5 mg/ Dextrose 50.5 ml @ 101 mls/hr Q6H IV Last administered on 07/25/18at 08:10; Admin Dose 101 MLS/HR; Start 07/24/18 at 20:30; Stop 07/25/18 at 08:59 Assessment/Plan Hospital Course (Demo Recall) Assessment 1. Acute hypoxemic respiratory failure 2. Severe thrombocytopenia 3. Renal insufficiency 4. Status post septic shock 5. Encephalopathy 6. History of cardiomyopathy 7. History of retinitis pigmentosa 7. Acute pancreatitis Plan 1. Continue mechanical ventilation low tidal volume as tolerated 2. Continue sedation and pain control 3. Initiate low-dose tube feeding 4. DVT and GI prophylaxis 5. Hematology recommendations regarding thrombocytopenia 6. Gentle hydration 7. DVT and GI prophylaxis Overall prognosis remains guarded Critical care time 40 minutes CAREN WASSERMAN MD, [facility] July 25, 2018 08:53
[2018-07-25] MEDS ORDERED: POTASSIUM PHOSPHATE 15 MM in SOD CHLORIDE 0.9% 250 ML IVPB ONE ×2 (11:00→12:00)
--- NOTE | 2018-07-25 11:09 | PN ---
Date/Time of Note Date/Time of Note DATE: 07/25/18 TIME: 10:54 Assessment/Plan VTE Prophylaxis Risk score (from Nsg)>0 risk: 8 Pharmacological prophylaxis: NA/contraindicated Pharm contraindication: blood coag disorder Lines/Catheters IV Catheter Type (from Nrsg): A Line Urinary Cath still in place: No Assessment/Plan Hospital Course Subjective: remains intubated and sedated, Objective : GENERAL: Intubated and comfortably sedated, was following commands off sedation per nurse HEENT: Intubated, Vent settings noted LUNGS: diffusely diminished HEART: S1, S2. No murmur, gallops or rubs. ABDOMEN: Soft, non distended, Normoactive bowel sounds. GENITOURINARY: Normal female external genitalia, Cordon to bedside drainage EXTREMITIES: RUE dialysis graft NEUROLOGIC: The patient is currently sedated. SKIN: diffuse ecchymosis with skin tears on buttocks assessment and plan: 27-year-old woman with history of end-stage kidney disease hemodialysis dependent was brought in by EMS from home for confusion and altered mental status and hypoglycemia . She had been recently discharged from outside hospital after being managed for MSSA bacteremia, no clear source has been found. She was home for 3 days before she was brought here. She suffered cardiac arrest in the emergency room after she was treated for hypoglycemia , she is currently managed as follows: 1. Status post cardiac arrest with return of spontaneous circulation Likely secondary to metabolic causes from missed hemodialysis 2. Acute respiratory failure: Remains ventilator dependent 3. Severe Sepsis s/p septic shock and severe lactic acidosis and now multiorgan failure -multifactorial, possible PNA / pancreatitis -now off pressor support 4. Acute encephalopathy -Multiple CVA superimposed on metabolic causes 5. Fluid overload vs CHF -on going HD 6. Acute Pancreatitis: worsened , severe 7. Elevated trop vs Nstemi 8. LLL pneumonia -recent hospitalization with reports of MSSA bacteremia 9. ESRD on HD with severe metabolic acidosis -2/2 lupus nephritis? No hx of transplant -improved post HD 10. Paroxysmal Afib : rate controlled 11. S/p Pacemaker / AICD 12. Hypokalemia 13. Chronic thrombocytopenia 14. 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 s/p transfusion 15. Debility / Malnuitrition 16. Eliquis therapy: on hold 17. Hx of Mssa bacteremia -ROSANNE was done without evidence of endocarditis -subsequent blood cultures have been negative -no concern for vegetations on TTE here 18. Mild CM on echo with EF45% and Moderate mitral and tricuspid regurgitation 19. severe jaundice with hemolysis 20. severe hepatic failure with coagulopathy, ?DIC -worsening 21. GI bleeding : gopal / hematochezia 22. Acute Colitis 23. Multiple acute strokes on brain CT 14. Steroid induced hyperglycemia Plan: Patient currently developing fulminant hepatic failure, GI also following, autoimmune, versus med induced? Continue steroids for now Continue vent support, weaning and management Neurology continues workup for CVA Continue abx Continue routine HD per renal Continue serial labs and close monitoring and replenishment of blood products as indicated appreciate all consults Continue Wound care for buttock skin tears Continue close ICU monitoring Prognosis remains guarded Care time >40mins , spoke with family extensively Result Diagram: 07/25/18 0400 07/25/18 0400 Results 24hrs Laboratory Tests Test 07/24/18 12:00 07/24/18 14:01 07/24/18 14:51 07/24/18 19:01 Blood Gas Blood arterial Specimen Source Arterial Blood 07/24/2018 4:35: Date Drawn 40 PM Arterial Blood 7.617 *H pH (Temp corrected) Arterial Blood 24.4 L pCO2 (Temp correct) Arterial Blood 133.0 H pO2 (Temp corrected) Arterial Blood 24.4 HCO3 Arterial Blood 3.9 H Base Excess Arterial Blood 98.8 H Oxygen Saturatio n Newton Test N/A Arterial Blood A-Line Gas Puncture Site Arterial 0.5 Blood Carboxyhem oglobin Arterial Blood 0.2 Methemoglobin Blood Gas A-a O2 52.2 H Differential Oxyhemoglobin 98.1 Percent Blood Gas 37.0 Temperature Blood Gas 16.0 Respiration Rate Blood Gas Actual 16 Respiration Rate Blood Gas VENT - AC Modality FiO2 30.0 Blood Gas Tidal 400.0 Volume Blood Gas Low 5.0 PEEP Setting Blood Gas Y ABLE RN Critical Value Read Back Blood Gas DT Notified Whom Blood Gas 07/24/2018 4:49: Notified Time 36 PM Bedside Glucose 115 145 White Blood 11.4 H Count Red Blood Count 3.06 #L Hemoglobin 10.0 #L Hematocrit 28.6 L Mean Corpuscular 93.5 Volume Mean Corpuscular 32.7 Hemoglobin Mean Corpuscular 35.0 Hemoglobin Isadora nt Red Cell 23.9 H Distribution Width Platelet Count 15 *L Mean Platelet Volume Immature 1.000 H Granulocytes % Neutrophils % 84.6 H Lymphocytes % 7.7 L Monocytes % 6.6 Eosinophils % 0.0 Basophils % 0.1 Nucleated Red 2.8 H Blood Cells % Immature 0.110 H Granulocytes # Neutrophils # 9.6 H Lymphocytes # 0.9 Monocytes # 0.8 Eosinophils # 0.0 Basophils # 0.0 Nucleated Red 0.3 H Blood Cells # Test 07/24/18 19:10 07/24/18 20:51 07/25/18 00:52 07/25/18 04:00 Blood Gas Blood arterial Specimen Source Arterial Blood 07/24/2018 8:00: Date Drawn 00 PM Arterial Blood 7.535 H pH (Temp corrected) Arterial Blood 25.3 L pCO2 (Temp correct) Arterial Blood 137.2 H pO2 (Temp corrected) Arterial Blood 20.9 L HCO3 Arterial Blood -0.7 Base Excess Arterial Blood 98.7 H Oxygen Saturatio n Newton Test N/A Arterial Blood A-Line Gas Puncture Site Arterial 0.1 Blood Carboxyhem oglobin Arterial Blood 0.2 Methemoglobin Blood Gas A-a O2 47.0 H Differential Oxyhemoglobin 98.4 Percent Blood Gas 37.0 Temperature Blood Gas 12.0 Respiration Rate Blood Gas Actual 14 Respiration Rate Blood Gas VENT - AC Modality FiO2 30.0 Blood Gas Tidal 400.0 Volume Blood Gas Low 5.0 PEEP Setting Blood Gas MO Notified Whom Blood Gas 07/24/2018 8:07: Notified Time 00 PM Bedside Glucose 157 152 White Blood 12.6 H Count Red Blood Count 3.22 L Hemoglobin 10.5 L Hematocrit 30.9 L Mean Corpuscular 96.0 Volume Mean Corpuscular 32.6 Hemoglobin Mean Corpuscular 34.0 Hemoglobin Isadora nt Red Cell 25.5 H Distribution Width Platelet Count 76 #L Mean Platelet 13.1 H Volume Immature 1.300 H Granulocytes % Neutrophils % Segmented 59 Neutrophils % (Manual) Band Neutrophils 32 H % (Manual) Lymphocytes % Lymphocytes % 4 L (Manual) Monocytes % Monocytes % 5 (Manual) Eosinophils % Basophils % Nucleated Red 3 H Blood Cells % Immature 0.160 H Granulocytes # Neutrophils # Neutrophils # 7.9 H (Manual) Band Neutrophils 4.0 H # Lymphocytes 0.5 L (Manual) Lymphocytes # Monocytes # Monocytes # 0.6 (Manual) Eosinophils # Basophils # Nucleated Red Blood Cells # Platelet DECREASED Estimate Giant Platelets 8 H Polychromasia 1+ Anisocytosis 2+ Macrocytosis 2+ Spherocytes 1+ Prothrombin Time 27.9 #H Prothrombin Time 2.2 Ratio INR 2.60 International Normalized Ratio Activated 36.5 H Partial Thrombop last Time Fibrinogen 308.0 # Sodium Level 139 Potassium Level 3.3 L Chloride Level 89 L Carbon Dioxide 23 Level Anion Gap 27 #H Blood Urea 13 Nitrogen Creatinine 1.29 H Est Glomerular 49 L Filtrat Rate mL/min Glucose Level 154 Calcium Level 7.9 L Phosphorus Level 2.0 L Magnesium Level 1.9 Total Bilirubin 10.7 H Direct Bilirubin 7.40 H Indirect 3.3 H Bilirubin Aspartate Amino 3543 H Transf (AST/SGOT ) Alanine 928 H Aminotransferase (ALT/SGPT) Alkaline 94 Phosphatase Ammonia 25 Total Protein 7.5 # Albumin 4.7 Globulin 2.80 Albumin/Globulin 1.67 Ratio Lipase 3022 H Test 07/25/18 04:57 07/25/18 05:00 07/25/18 05:36 07/25/18 08:55 Lab Scanned BLOOD TRANSFUSI Report ON Blood Gas Blood arterial Specimen Source Arterial Blood 07/25/2018 5:30: Date Drawn 00 AM Arterial Blood 7.456 H pH (Temp corrected) Arterial Blood 31.4 L pCO2 (Temp correct) Arterial Blood 135.9 H pO2 (Temp corrected) Arterial Blood 21.6 L HCO3 Arterial Blood -1.5 Base Excess Arterial Blood 98.7 H Oxygen Saturatio n Newton Test N/A Arterial Blood A-Line Gas Puncture Site Arterial 0.3 Blood Carboxyhem oglobin Arterial Blood 0.2 Methemoglobin Blood Gas A-a O2 113.2 H Differential Oxyhemoglobin 98.2 Percent Blood Gas 37.0 Temperature Blood Gas 12.0 Respiration Rate Blood Gas Actual 13 Respiration Rate Blood Gas VENT - AC Modality FiO2 40.0 Blood Gas Tidal 400.0 Volume Blood Gas Low 5.0 PEEP Setting Blood Gas MO Notified Whom Blood Gas 07/25/2018 5:47: Notified Time 47 AM Bedside Glucose 161 192 Exam/Review of Systems Exam Vitals Vital Signs Date Temp Pulse Resp B/P (MAP) Pulse Ox O2 O2 Flow FiO2 Time Delivery Rate 07/25/18 30 08:00 07/25/18 81 08:00 07/25/18 12 130/93 100 06:00 (105) 07/25/18 97.9 04:00 07/24/18 Mechanical 18:00 Ventilator 07/22/18 2.0 10:00 Intake and Output 07/24/18 07/24/18 07/25/18 1515:00 23:00 07:00 IntakeIntake Total 1385 ml 1059.5 ml 421.5 ml OutputOutput Total 4600 ml BalanceBalance -3215 ml 1059.5 ml 421.5 ml Results Results 24hrs Laboratory Tests Test 07/24/18 12:00 07/24/18 14:01 07/24/18 14:51 07/24/18 19:01 Blood Gas Blood arterial Specimen Source Arterial Blood 07/24/2018 4:35: Date Drawn 40 PM Arterial Blood 7.617 *H pH (Temp corrected) Arterial Blood 24.4 L pCO2 (Temp correct) Arterial Blood 133.0 H pO2 (Temp corrected) Arterial Blood 24.4 HCO3 Arterial Blood 3.9 H Base Excess Arterial Blood 98.8 H Oxygen Saturatio n [place] Test N/A Arterial Blood A-Line Gas Puncture Site Arterial 0.5 Blood Carboxyhem oglobin Arterial Blood 0.2 Methemoglobin Blood Gas A-a O2 52.2 H Differential Oxyhemoglobin 98.1 Percent Blood Gas 37.0 Temperature Blood Gas 16.0 Respiration Rate Blood Gas Actual 16 Respiration Rate Blood Gas VENT - AC Modality FiO2 30.0 Blood Gas Tidal 400.0 Volume Blood Gas Low 5.0 PEEP Setting Blood Gas Y ABLE RN Critical Value Read Back Blood Gas DT Notified Whom Blood Gas 07/24/2018 4:49: Notified Time 36 PM Bedside Glucose 115 145 White Blood 11.4 H Count Red Blood Count 3.06 #L Hemoglobin 10.0 #L Hematocrit 28.6 L Mean Corpuscular 93.5 Volume Mean Corpuscular 32.7 Hemoglobin Mean Corpuscular 35.0 Hemoglobin Isadora nt Red Cell 23.9 H Distribution Width Platelet Count 15 *L Mean Platelet Volume Immature 1.000 H Granulocytes % Neutrophils % 84.6 H Lymphocytes % 7.7 L Monocytes % 6.6 Eosinophils % 0.0 Basophils % 0.1 Nucleated Red 2.8 H Blood Cells % Immature 0.110 H Granulocytes # Neutrophils # 9.6 H Lymphocytes # 0.9 Monocytes # 0.8 Eosinophils # 0.0 Basophils # 0.0 Nucleated Red 0.3 H Blood Cells # Test 07/24/18 19:10 07/24/18 20:51 07/25/18 00:52 07/25/18 04:00 Blood Gas Blood arterial Specimen Source Arterial Blood 07/24/2018 8:00: Date Drawn 00 PM Arterial Blood 7.535 H pH (Temp corrected) Arterial Blood 25.3 L pCO2 (Temp correct) Arterial Blood 137.2 H pO2 (Temp corrected) Arterial Blood 20.9 L HCO3 Arterial Blood -0.7 Base Excess Arterial Blood 98.7 H Oxygen Saturatio n [place] Test N/A Arterial Blood A-Line Gas Puncture Site Arterial 0.1 Blood Carboxyhem oglobin Arterial Blood 0.2 Methemoglobin Blood Gas A-a O2 47.0 H Differential Oxyhemoglobin 98.4 Percent Blood Gas 37.0 Temperature Blood Gas 12.0 Respiration Rate Blood Gas Actual 14 Respiration Rate Blood Gas VENT - AC Modality FiO2 30.0 Blood Gas Tidal 400.0 Volume Blood Gas Low 5.0 PEEP Setting Blood Gas MO Notified Whom Blood Gas 07/24/2018 8:07: Notified Time 00 PM Bedside Glucose 157 152 White Blood 12.6 H Count Red Blood Count 3.22 L Hemoglobin 10.5 L Hematocrit 30.9 L Mean Corpuscular 96.0 Volume Mean Corpuscular 32.6 Hemoglobin Mean Corpuscular 34.0 Hemoglobin Isadora nt Red Cell 25.5 H Distribution Width Platelet Count 76 #L Mean Platelet 13.1 H Volume Immature 1.300 H Granulocytes % Neutrophils % Segmented 59 Neutrophils % (Manual) Band Neutrophils 32 H % (Manual) Lymphocytes % Lymphocytes % 4 L (Manual) Monocytes % Monocytes % 5 (Manual) Eosinophils % Basophils % Nucleated Red 3 H Blood Cells % Immature 0.160 H Granulocytes # Neutrophils # Neutrophils # 7.9 H (Manual) Band Neutrophils 4.0 H # Lymphocytes 0.5 L (Manual) Lymphocytes # Monocytes # Monocytes # 0.6 (Manual) Eosinophils # Basophils # Nucleated Red Blood Cells # Platelet DECREASED Estimate Giant Platelets 8 H Polychromasia 1+ Anisocytosis 2+ Macrocytosis 2+ Spherocytes 1+ Prothrombin Time 27.9 #H Prothrombin Time 2.2 Ratio INR 2.60 International Normalized Ratio Activated 36.5 H Partial Thrombop last Time Fibrinogen 308.0 # Sodium Level 139 Potassium Level 3.3 L Chloride Level 89 L Carbon Dioxide 23 Level Anion Gap 27 #H Blood Urea 13 Nitrogen Creatinine 1.29 H Est Glomerular 49 L Filtrat Rate mL/min Glucose Level 154 Calcium Level 7.9 L Phosphorus Level 2.0 L Magnesium Level 1.9 Total Bilirubin 10.7 H Direct Bilirubin 7.40 H Indirect 3.3 H Bilirubin Aspartate Amino 3543 H Transf (AST/SGOT ) Alanine 928 H Aminotransferase (ALT/SGPT) Alkaline 94 Phosphatase Ammonia 25 Total Protein 7.5 # Albumin 4.7 Globulin 2.80 Albumin/Globulin 1.67 Ratio Lipase 3022 H Test 07/25/18 04:57 07/25/18 05:00 07/25/18 05:36 07/25/18 08:55 Lab Scanned BLOOD TRANSFUSI Report ON Blood Gas Blood arterial Specimen Source Arterial Blood 07/25/2018 5:30: Date Drawn 00 AM Arterial Blood 7.456 H pH (Temp corrected) Arterial Blood 31.4 L pCO2 (Temp correct) Arterial Blood 135.9 H pO2 (Temp corrected) Arterial Blood 21.6 L HCO3 Arterial Blood -1.5 Base Excess Arterial Blood 98.7 H Oxygen Saturatio n [place] Test N/A Arterial Blood A-Line Gas Puncture Site Arterial 0.3 Blood Carboxyhem oglobin Arterial Blood 0.2 Methemoglobin Blood Gas A-a O2 113.2 H Differential Oxyhemoglobin 98.2 Percent Blood Gas 37.0 Temperature Blood Gas 12.0 Respiration Rate Blood Gas Actual 13 Respiration Rate Blood Gas VENT - AC Modality FiO2 40.0 Blood Gas Tidal 400.0 Volume Blood Gas Low 5.0 PEEP Setting Blood Gas MO Notified Whom Blood Gas 07/25/2018 5:47: Notified Time 47 AM Bedside Glucose 161 192 Medications Medication Current Medications Lorazepam (Ativan) 0.5 mg Q6H PRN IV .ANXIETY; Start 07/22/18 at 10:30 Ondansetron HCl (Zofran Inj) 4 mg Q6H PRN IV NAUSEA/VOMITING; Start 07/22/18 at 10:30 Aspirin (Aspirin) 81 mg DAILY PO ; Start 07/23/18 at 09:00; Status Hold Vancomycin HCl (Vanco Iv Per Pharmacy) VANCOMYCIN PER PHARMACY PER PROTOCOL XX ; Start 07/22/18 at 10:30 Multivit/Ca Carb/ B Cmplx/FA/Prenat (Lalita-Abigail) 1 tab DAILY PO Last administered on 07/25/18 08:11; Admin Dose 1 TAB; Start 07/23/18 at 09:00 Dopamine HCl/ Dextrose 250 ml @ 2.205 mls/ hr TITRATE IV Last administered on 07/22/18 11:31; Admin Dose 15.435 MLS/HR; Start 07/22/18 at 11:30 Phenylephrine HCl 250 ml @ 75 mls/hr TITRATE IV ; Start 07/22/18 at 12:00 Hydrocortisone (Solu-Cortef) 200 mg Q8 IV Last administered on 07/25/18 05:16; Admin Dose 200 MG; Start 07/22/18 at 14:00 Acetaminophen (Tylenol Supp) 650 mg Q4H PRN VT TEMP > 37C; Start 07/22/18 at 12:30 Acetaminophen (Tylenol Liquid) 650 mg Q4H PRN PO TEMP > 37C; Start 07/22/18 at 12:30 Meperidine HCl (Demerol) 12.5 mg Q4H PRN IV POST OPERATIVE SHIVERING; Start 07/22/18 at 12:30 Meperidine HCl (Demerol) 25 mg Q4H PRN IV POST OPERATIVE SHIVERING; Start 07/22/18 at 12:30 Eye Lubricant (Akwa Oint) 1 applic Q6 BOTH EYES Last administered on 07/25/18 05:16; Admin Dose 1 APPLIC; Start 07/22/18 at 18:00 Eye Lubricant (Artificial Tears Oph) 2 drop Q6 BOTH EYES Last administered on 07/25/18 05:16; Admin Dose 2 DROP; Start 07/22/18 at 18:00 Norepinephrine 250 ml @ 1.875 mls/ hr TITRATE IV Last administered on 07/23/18 01:01; Admin Dose 22.5 MLS/HR; Start 07/22/18 at 13:00 Docusate Sodium (Colace Liquid Cup) 100 mg BID NGT Last administered on 07/25/18 08:11; Admin Dose 100 MG; Start 07/22/18 at 22:00 Midazolam HCl 50 ml @ 1 mls/hr TITRATE IV Last administered on 07/25/18 05:18; Admin Dose 3 MLS/HR; Start 07/23/18 at 02:00 Sevelamer Carbonate (Renvela) 800 mg WITH MEALS PO Last administered on 07/25/18at 06:36; Admin Dose 800 MG; Start 07/23/18 at 07:35 Famotidine (Pepcid) 20 mg DAILY NGT Last administered on 07/25/18at 08:11; Admin Dose 20 MG; Start 07/23/18 at 12:00 Diagnostic Test (Pha) (Accu-Chek) 1 ea Q4 XX Last administered on 07/25/18at 08:11; Admin Dose 1 EA; Start 07/23/18 at 13:00 Albumin Human 100 ml @ 100 mls/hr WITH DIALYSIS PRN IV SBP <90 DURING DIALYSIS Last administered on 07/23/18at 18:07; Admin Dose 100 MLS/HR; Start 07/23/18 at 18:00 Miscellaneous Information (* Miscellaneous Pharmacy Order) Treatment of Hypoglycemia: 1.BG 51... Per protocol XX ; Start 07/24/18 at 02:00 Miscellaneous Information 1 ea NOTE XX ; Start 07/24/18 at 02:30 Glucose (Glutose) 15 gm Q15M PRN PO DECREASED GLUCOSE; Start 07/24/18 at 02:30 Glucose (Glutose) 22.5 gm Q15M PRN PO DECREASED GLUCOSE; Start 07/24/18 at 02:30 Dextrose (D50w Syringe) 25 ml Q15M PRN IV DECREASED GLUCOSE; Start 07/24/18 at 02:30 Dextrose (D50w Syringe) 50 ml Q15M PRN IV DECREASED GLUCOSE; Start 07/24/18 at 02:30 Glucagon (Glucagen) 1 mg Q15M PRN IM DECREASED GLUCOSE; Start 07/24/18 at 02:30 Glucose (Glutose) 15 gm Q15M PRN BUCCAL DECREASED GLUCOSE; Start 07/24/18 at 02:30 Cefepime HCl 50 ml @ 100 mls/hr DAILY IVPB Last administered on 07/25/18at 08:11; Admin Dose 100 MLS/HR; Start 07/24/18 at 12:30 Metronidazole (Flagyl) 500 mg Q8 PO Last administered on 07/25/18at 05:16; Admin Dose 500 MG; Start 07/24/18 at 13:00 Total Parenteral Nutrition 1,000 ml @ 40 mls/hr Q24H IV ; Start 07/24/18 at 12:00; Status UNV Potassium Phosphate 15 mm/ Sodium Chloride 255 ml @ 63.75 mls/ hr ONCE ONCE IVPB ; Start 07/25/18 at 11:00; Stop 07/25/18 at 14:59; Status UNV TRINITY ELENA July 25, 2018 11:09
--- NOTE | 2018-07-25 11:48 | CONS ---
[facility] HCIS Consult Follow-up Patient Name: Maria Antonia Willis Unit Number: [id number] Date of : 1990 Patient Status: Admitted Inpatient Attending Doctor: Trinity Elnea Edit: GIOVANNA TSANG MD on 07/25/18 @ 15:51 seen and examined PEA arrest now with shock liver /colitis /stroke r/o antiphospholipid feeding gentle iv fluids HD tmw Assessment/Plan Assessment/Plan Hospital Course (Demo Recall) 1. Status post code blue, unresponsive, could be secondary to cardiac in origin/rule out embolic infarct to the brain/hypoglycemia/septic shock. 2. Septic shock with history of endocarditis, source questionable. This pa tient had a pacemaker in the chest and also has AV graft. bld cx pending so far, hx MSSA in OSH recent was hospitalized 3. Severe anion gap acidosis secondary to hypovolemia/ septic shock with la ctic acidosis, resolved 4 Respiratory failure s/p intubation 4. End-stage renal disease on hemodialysis secondary to right kidney atrophy, chronic tubulointerstitial nephritis. 5. Elevated troponin, likely secondary to acute coronary syndrome. non STEMI 6. Chronic atrial fibrillation. 7. Cardiomyopathy, status post pacemaker. 8. Chronic thrombocytopenia. with acute plt drop 9. Chronic megaloblastic anemia. 10. Abnormal LFTs with elevated bilirubin level.? hemolysis 11. Leukocytosis. 12. Anemia, megaloblastic with acute drop r/o hemolysis 13. Hypokalemia resolved 14. hx retinitis pigmentosa with blindness 15. Hypokalemia Assessment/Plan (Daily) -c.w HD as ordered -no bleeding Permacath -K is supplemented -change Renvella to phoslo via NG tube pt might need an Epogen when she is out acute sepsis Consultation Date/Type/Reason Admit Date/Time July 22, 2018 at 09:09 Initial Consult Date 07/23/18 Type of Consult nephrology Requesting Provider: TRINITY ELENA Date/Time of Note DATE: 07/25/18 TIME: 11:48 24 HR Interval Summary Free Text/Dictation sedated with propofol Subjective hx not possible: pt critical status Constitutional: other (orally intubated) Exam/Review of Systems Exam Vitals Vital Signs Date Temp Pulse Resp B/P (MAP) Pulse Ox O2 O2 Flow FiO2 Time Delivery Rate 07/25/18 63 14 109/87 99 Mechanical 11:00 (94) Ventilator 07/25/18 30 08:00 07/25/18 97.6 08:00 07/22/18 2.0 10:00 Intake and Output 07/24/18 07/24/18 07/25/18 1515:00 23:00 07:00 IntakeIntake Total 1385 ml 1059.5 ml 424.5 ml OutputOutput Total 4600 ml BalanceBalance -3215 ml 1059.5 ml 424.5 ml Exam right chest Permcath Head: normocephalic Neck: supple Respiratory: diminished breath sounds Cardiovascular: regular rate and rhythm Gastrointestinal: distended Extremities: edema (uniklateral right) Additional Comments sedated with versed Results Result Diagram: 07/25/18 0400 07/25/18 0400 Results 24hrs Laboratory Tests Test 07/24/18 12:00 07/24/18 14:01 07/24/18 14:51 07/24/18 19:01 Blood Gas Blood arterial Specimen Source Arterial Blood 07/24/2018 4:35: Date Drawn 40 PM Arterial Blood 7.617 *H pH (Temp corrected) Arterial Blood 24.4 L pCO2 (Temp correct) Arterial Blood 133.0 H pO2 (Temp corrected) Arterial Blood 24.4 HCO3 Arterial Blood 3.9 H Base Excess Arterial Blood 98.8 H Oxygen Saturatio n [place] Test N/A Arterial Blood A-Line Gas Puncture Site Arterial 0.5 Blood Carboxyhem oglobin Arterial Blood 0.2 Methemoglobin Blood Gas A-a O2 52.2 H Differential Oxyhemoglobin 98.1 Percent Blood Gas 37.0 Temperature Blood Gas 16.0 Respiration Rate Blood Gas Actual 16 Respiration Rate Blood Gas VENT - AC Modality FiO2 30.0 Blood Gas Tidal 400.0 Volume Blood Gas Low 5.0 PEEP Setting Blood Gas Y ABLE RN Critical Value Read Back Blood Gas DT Notified Whom Blood Gas 07/24/2018 4:49: Notified Time 36 PM Bedside Glucose 115 145 White Blood 11.4 H Count Red Blood Count 3.06 #L Hemoglobin 10.0 #L Hematocrit 28.6 L Mean Corpuscular 93.5 Volume Mean Corpuscular 32.7 Hemoglobin Mean Corpuscular 35.0 Hemoglobin Isadora nt Red Cell 23.9 H Distribution Width Platelet Count 15 *L Mean Platelet Volume Immature 1.000 H Granulocytes % Neutrophils % 84.6 H Lymphocytes % 7.7 L Monocytes % 6.6 Eosinophils % 0.0 Basophils % 0.1 Nucleated Red 2.8 H Blood Cells % Immature 0.110 H Granulocytes # Neutrophils # 9.6 H Lymphocytes # 0.9 Monocytes # 0.8 Eosinophils # 0.0 Basophils # 0.0 Nucleated Red 0.3 H Blood Cells # Test 07/24/18 19:10 07/24/18 20:51 07/25/18 00:52 07/25/18 04:00 Blood Gas Blood arterial Specimen Source Arterial Blood 07/24/2018 8:00: Date Drawn 00 PM Arterial Blood 7.535 H pH (Temp corrected) Arterial Blood 25.3 L pCO2 (Temp correct) Arterial Blood 137.2 H pO2 (Temp corrected) Arterial Blood 20.9 L HCO3 Arterial Blood -0.7 Base Excess Arterial Blood 98.7 H Oxygen Saturatio n [place] Test N/A Arterial Blood A-Line Gas Puncture Site Arterial 0.1 Blood Carboxyhem oglobin Arterial Blood 0.2 Methemoglobin Blood Gas A-a O2 47.0 H Differential Oxyhemoglobin 98.4 Percent Blood Gas 37.0 Temperature Blood Gas 12.0 Respiration Rate Blood Gas Actual 14 Respiration Rate Blood Gas VENT - AC Modality FiO2 30.0 Blood Gas Tidal 400.0 Volume Blood Gas Low 5.0 PEEP Setting Blood Gas MA Notified Whom Blood Gas 07/24/2018 8:07: Notified Time 00 PM Bedside Glucose 157 152 White Blood 12.6 H Count Red Blood Count 3.22 L Hemoglobin 10.5 L Hematocrit 30.9 L Mean Corpuscular 96.0 Volume Mean Corpuscular 32.6 Hemoglobin Mean Corpuscular 34.0 Hemoglobin Isadora nt Red Cell 25.5 H Distribution Width Platelet Count 76 #L Mean Platelet 13.1 H Volume Immature 1.300 H Granulocytes % Neutrophils % Segmented 59 Neutrophils % (Manual) Band Neutrophils 32 H % (Manual) Lymphocytes % Lymphocytes % 4 L (Manual) Monocytes % Monocytes % 5 (Manual) Eosinophils % Basophils % Nucleated Red 3 H Blood Cells % Immature 0.160 H Granulocytes # Neutrophils # Neutrophils # 7.9 H (Manual) Band Neutrophils 4.0 H # Lymphocytes 0.5 L (Manual) Lymphocytes # Monocytes # Monocytes # 0.6 (Manual) Eosinophils # Basophils # Nucleated Red Blood Cells # Platelet DECREASED Estimate Giant Platelets 8 H Polychromasia 1+ Anisocytosis 2+ Macrocytosis 2+ Spherocytes 1+ Prothrombin Time 27.9 #H Prothrombin Time 2.2 Ratio INR 2.60 International Normalized Ratio Activated 36.5 H Partial Thrombop last Time Fibrinogen 308.0 # Sodium Level 139 Potassium Level 3.3 L Chloride Level 89 L Carbon Dioxide 23 Level Anion Gap 27 #H Blood Urea 13 Nitrogen Creatinine 1.29 H Est Glomerular 49 L Filtrat Rate mL/min Glucose Level 154 Calcium Level 7.9 L Phosphorus Level 2.0 L Magnesium Level 1.9 Total Bilirubin 10.7 H Direct Bilirubin 7.40 H Indirect 3.3 H Bilirubin Aspartate Amino 3543 H Transf (AST/SGOT ) Alanine 928 H Aminotransferase (ALT/SGPT) Alkaline 94 Phosphatase Ammonia 25 Total Protein 7.5 # Albumin 4.7 Globulin 2.80 Albumin/Globulin 1.67 Ratio Lipase 3022 H Test 07/25/18 04:57 07/25/18 05:00 07/25/18 05:36 07/25/18 08:55 Lab Scanned BLOOD TRANSFUSI Report ON Blood Gas Blood arterial Specimen Source Arterial Blood 07/25/2018 5:30: Date Drawn 00 AM Arterial Blood 7.456 H pH (Temp corrected) Arterial Blood 31.4 L pCO2 (Temp correct) Arterial Blood 135.9 H pO2 (Temp corrected) Arterial Blood 21.6 L HCO3 Arterial Blood -1.5 Base Excess Arterial Blood 98.7 H Oxygen Saturatio n [place] Test N/A Arterial Blood A-Line Gas Puncture Site Arterial 0.3 Blood Carboxyhem oglobin Arterial Blood 0.2 Methemoglobin Blood Gas A-a O2 113.2 H Differential Oxyhemoglobin 98.2 Percent Blood Gas 37.0 Temperature Blood Gas 12.0 Respiration Rate Blood Gas Actual 13 Respiration Rate Blood Gas VENT - AC Modality FiO2 40.0 Blood Gas Tidal 400.0 Volume Blood Gas Low 5.0 PEEP Setting Blood Gas ND Notified Whom Blood Gas 07/25/2018 5:47: Notified Time 47 AM Bedside Glucose 161 192 Medications Medication Current Medications Lorazepam (Ativan) 0.5 mg Q6H PRN IV .ANXIETY; Start 07/22/18 at 10:30 Ondansetron HCl (Zofran Inj) 4 mg Q6H PRN IV NAUSEA/VOMITING; Start 07/22/18 at 10:30 Aspirin (Aspirin) 81 mg DAILY PO ; Start 07/23/18 at 09:00; Status Hold Vancomycin HCl (Vanco Iv Per Pharmacy) VANCOMYCIN PER PHARMACY PER PROTOCOL XX ; Start 07/22/18 at 10:30 Multivit/Ca Carb/ B Cmplx/FA/Prenat (Lalita-Abigail) 1 tab DAILY PO Last administered on 07/25/18at 08:11; Admin Dose 1 TAB; Start 07/23/18 at 09:00 Dopamine HCl/ Dextrose 250 ml @ 2.205 mls/ hr TITRATE IV Last administered on 07/22/18at 11:31; Admin Dose 15.435 MLS/HR; Start 07/22/18 at 11:30 Phenylephrine HCl 250 ml @ 75 mls/hr TITRATE IV ; Start 07/22/18 at 12:00 Hydrocortisone (Solu-Cortef) 200 mg Q8 IV Last administered on 07/25/18at 05:16; Admin Dose 200 MG; Start 07/22/18 at 14:00 Acetaminophen (Tylenol Supp) 650 mg Q4H PRN [place] TEMP > 37C; Start 07/22/18 at 12:30 Acetaminophen (Tylenol Liquid) 650 mg Q4H PRN PO TEMP > 37C; Start 07/22/18 at 12:30 Meperidine HCl (Demerol) 12.5 mg Q4H PRN IV POST OPERATIVE SHIVERING; Start 07/22/18 at 12:30 Meperidine HCl (Demerol) 25 mg Q4H PRN IV POST OPERATIVE SHIVERING; Start 07/22/18 at 12:30 Eye Lubricant (Akwa Oint) 1 applic Q6 BOTH EYES Last administered on 07/25/18at 05:16; Admin Dose 1 APPLIC; Start 07/22/18 at 18:00 Eye Lubricant (Artificial Tears Oph) 2 drop Q6 BOTH EYES Last administered on 07/25/18 05:16; Admin Dose 2 DROP; Start 07/22/18 at 18:00 Norepinephrine 250 ml @ 1.875 mls/ hr TITRATE IV Last administered on 07/23/18at 01:01; Admin Dose 22.5 MLS/HR; Start 07/22/18 at 13:00 Docusate Sodium (Colace Liquid Cup) 100 mg BID NGT Last administered on 07/25/18 08:11; Admin Dose 100 MG; Start 07/22/18 at 22:00 Midazolam HCl 50 ml @ 1 mls/hr TITRATE IV Last administered on 07/25/18 05:18; Admin Dose 3 MLS/HR; Start 07/23/18 at 02:00 Sevelamer Carbonate (Renvela) 800 mg WITH MEALS PO Last administered on 06:36; Admin Dose 800 MG; Start 07/23/18 at 07:35 Famotidine (Pepcid) 20 mg DAILY NGT Last administered on 07/25/18 08:11; Admin Dose 20 MG; Start 07/23/18 at 12:00 Diagnostic Test (Pha) (Accu-Chek) 1 ea Q4 XX Last administered on 07/25/18 08:11; Admin Dose 1 EA; Start 07/23/18 at 13:00 Albumin Human 100 ml @ 100 mls/hr WITH DIALYSIS PRN IV SBP <90 DURING DIALYSIS Last administered on 07/23/18 18:07; Admin Dose 100 MLS/HR; Start 07/23/18 at 18:00 Miscellaneous Information (* Miscellaneous Pharmacy Order) Treatment of Hypoglycemia: 1.BG 51... Per protocol XX ; Start 07/24/18 at 02:00 Miscellaneous Information 1 ea NOTE XX ; Start 07/24/18 at 02:30 Glucose (Glutose) 15 gm Q15M PRN PO DECREASED GLUCOSE; Start 07/24/18 at 02:30 Glucose (Glutose) 22.5 gm Q15M PRN PO DECREASED GLUCOSE; Start 07/24/18 at 02:30 Dextrose (D50w Syringe) 25 ml Q15M PRN IV DECREASED GLUCOSE; Start 07/24/18 at 02:30 Dextrose (D50w Syringe) 50 ml Q15M PRN IV DECREASED GLUCOSE; Start 07/24/18 at 02:30 Glucagon (Glucagen) 1 mg Q15M PRN IM DECREASED GLUCOSE; Start 07/24/18 at 02:30 Glucose (Glutose) 15 gm Q15M PRN BUCCAL DECREASED GLUCOSE; Start 07/24/18 at 02:30 Cefepime HCl 50 ml @ 100 mls/hr DAILY IVPB Last administered on 07/25/18at 08:11; Admin Dose 100 MLS/HR; Start 07/24/18 at 12:30 Metronidazole (Flagyl) 500 mg Q8 PO Last administered on 07/25/18at 05:16; Admin Dose 500 MG; Start 07/24/18 at 13:00 Total Parenteral Nutrition 1,000 ml @ 40 mls/hr Q24H IV ; Start 07/24/18 at 12:00; Status UNV Potassium Phosphate 15 mm/ Sodium Chloride 255 ml @ 63.75 mls/ hr ONCE ONCE IVPB ; Start 07/25/18 at 12:00; Stop 07/25/18 at 15:59 KIM INGRAM July 25, 2018 11:48
--- NOTE | 2018-07-25 12:36 | CONS ---
Assessment/Plan Assessment/Plan Hospital Course 27 yo F with multiple significant comorbidities who was admitted to ICU following a cardiac arrest. TTM was deferred d/t her improvement in neurologic status. CTH on 07/24 was notable for acute BL cerebellar infarcts... for which neurology is consulted. Her labs suggest DIC, which is certainly the underlying precipitant. Repeat CTH is stable. MRI brain is presently contraindicated d/t pacemaker Echo is unrevealing. LDL 20; haptoglobin <8 P: CTA H/N to evaluate posterior circulation when medically able ASA for stroke prevention when medically able; LDL is at goal Consider complete hypercoagulability panel Cont medical management per primary Limit sedating medications where possible PT/OT/ST when able Will follow clinically, to recommend neurologic studies, as necessary Consultation Date/Type/Reason Admit Date/Time July 22, 2018 at 09:09 Type of Consult Neurology Reason for Consultation acute CVA Requesting Provider: TRINITY ELENA Date/Time of Note DATE: 07/25/18 TIME: 12:36 24 HR Interval Summary Free Text/Dictation Continues critical care. S/p repeat HCT. S/p platelet, PRBC, and cryo transfusion. Subjective hx not possible: pt non-verbal, pt critical Exam Vital Signs Vitals Vital Signs Date Temp Pulse Resp B/P (MAP) Pulse Ox O2 O2 Flow FiO2 Time Delivery Rate 07/25/18 60 12:00 07/25/18 14 109/87 99 Mechanical 11:00 (94) Ventilator 07/25/18 30 08:00 07/25/18 97.6 08:00 07/22/18 2.0 10:00 Intake and Output 07/24/18 07/24/18 07/25/18 1515:00 23:00 07:00 IntakeIntake Total 1385 ml 1059.5 ml 424.5 ml OutputOutput Total 4600 ml BalanceBalance -3215 ml 1059.5 ml 424.5 ml Exam PE: Gen Appearance: No Apparent Distress HEENT: Intubated Cardiovascular: Regular rate Abdomen: Soft Extremities: Dry NE: The patient was obtunded and nonverbal. The pt did not follow commands. Cranial nerve examination was limited by mental status. Pupils were equal and reactive to light. There was no afferent pupillary defect. Funduscopic examination was limited. Face was grossly symmetric, w/ present corneal and cough reflexes. Tone was normal. Muscle bulk was normal. I did not see fasciculations. The patient had spontaneous movement of all extremities. Coordination and gait testing was limited by mental status. Arm and leg reflexes were within normal limits and symmetric. Coe's sign was absent. Plantar responses were flexor. LUCIA CARRILLO NP July 25, 2018 12:36
--- NOTE | 2018-07-25 12:42 | PN ---
DATE: 07/25/2018 SUBJECTIVE: Patient remains poorly responsive. The intubated on ventilator support. The patient continues requiring pressors. Did have a large melenotic stool last night. OBJECTIVE: GENERAL: The patient is a well-developed, but chronically appearing female who is presently unrespon sive. VITAL SIGNS: Temperature 97.6 axillary, pulse 63 per minute and regular, respirations 14, blood pres sure 109/87, pulse oximetry 99% on room air. SKIN: No ecchymosis, no petechiae or rashes. HEENT: Normocephalic. No evidence of trauma. Pupils equal, round, react to light and accommodation . Patient does have an endotracheal tube in place and nasogastric tube. NECK: Supple. No jugular venous distention or thyroid enlargement. HEART: Regular sinus rhythm, no S3, S4 or murmurs. CHEST: No rhonchi, wheezes, rales or rubs. There is a pacemaker in place in patient's left anterior chest wall. HEART: Regular sinus rhythm, no S3, S4 or murmurs. ABDOMEN: Soft, no masses, no ascites. EXTREMITIES: No clubbing, edema or cyanosis. NEUROLOGIC: The patient is sedated and poorly responsive. CT scan of abdomen and pelvis done on 07/24/2018 shows diffuse thickening of the colon consistent wit h colitis. There is mild hepatomegaly noted. CT scan of the brain does show acute left greater than right ischemic cerebellar infarcts. Protime is 27.9 seconds, PTT, INR 2.6 and PTT 36.5 seconds. Fibrinogen 308. ASSESSMENT: 1. Thrombocytopenia, likely related to DIC, rule out autoimmune thrombocytopenia. 2. Coagulopathy due to vitamin K deficiency, partially corrected. 3. Renal failure. 4. 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 DISCUSSION: The patient's coagulation abnormalities did correct with vitamin K. The improvement in fibrinogen is likely due to the administration of 10 bags of cryoprecipitate. The patient, as mentioned, does have thrombocytopenia with large platelets suggesting some peripheral destruction. This may be autoimmune in nature and also possibly associated with a consumptive coagu lopathy. The patient does have some evidence of DIC associated with the marked hypotension. Again, we will give more vitamin K today. I have also requested other studies to include platelet an tibodies as well as lupus anticoagulant and anticardiolipin studies. Dictated By: JENIFER MARQUES MD, SR/NTS Conf#: [id number] DID#: [id number]
[2018-07-25] MEDS ORDERED: PHYTONADIONE 5 MG in DEXTROSE 5% 50 ML IVPB ONE (13:00)
--- NOTE | 2018-07-25 13:03 | CONS ---
Assessment/Plan Assessment/Plan Hospital Course (Demo Recall) No acute events patient is noncommunicative intubated in no distress no fevers overnight WBC 12.6 H&H 10.5 and 30.9 platelets 76 lactic acid 18.[address] of the brain revealed bilateral inferior cerebellar infarcts left greater than right similar in extent compared to prior CT no other changes. Sinus disease with an air-fluid levels in the sphenoid sinuses and ethmoid air cells. Please see full report in the chart. Chest x-ray revealed cardiomegaly decreased hazy opacification of the pulmonary parenchyma CT of the abdomen and pelvis revealed diffuse wall thickening of the colon co nsistent with colitis. Bibasilar groundglass infiltrates or edema of the lungs with small right pleural effusion. Scattered mild ascites and mesenteric edema. Please see full record in the chart Antimicrobials: Flagyl, cefepime, vancomycin Indwelling: Endotracheal tube, NG tube, right subclavian triple-lumen catheter, right upper extremity AV fistula, PPM Physical examination: This is a chronically ill-appearing young woman who is intubated sedated in no distress. Head atraumatic normocephalic. Neck is supple. Chest rise symmetrical, breath sounds diminished bases. Heart: S1-S2. Abdomen distended, bowel tones hypoactive. Extremities cyanotic Assessment: 1. Severe sepsis, status post shock 2. S/p PEA arrest 3. Acute CVA 4. Acute on chronic sinusitis 5. Colitis ?C dif ? Ischemic 6. S/p MSSA bacteremia per report from [facility], unclear if ROSANNE w as done==> pt was dc on Rifampin and ? IV Vanco , last dose 08/23 7. ESRD 8. SZ do 9. CAD/Hx PPM 10. Anemia 11. Thrombocytopenia 12. DM 13. Increased lipase==> no evidence of pancreatitis on the CAT scan Plan: Remains unchanged, continue abx, follow neurology/G/cardiology/pulmonary /renal rec-s, prognosis guarded. KUB Consultation Date/Type/Reason Admit Date/Time July 22, 2018 at 09:09 Initial Consult Date 07/23/18 Type of Consult id Requesting Provider: TRINITY ELENA Date/Time of Note DATE: 07/25/18 TIME: 12:59 Exam/Review of Systems Exam Vitals Vital Signs Date Temp Pulse Resp B/P (MAP) Pulse Ox O2 O2 Flow FiO2 Time Delivery Rate 07/25/18 60 12:00 07/25/18 14 109/87 99 Mechanical 11:00 (94) Ventilator 07/25/18 30 08:00 07/25/18 97.6 08:00 07/22/18 2.0 10:00 Intake and Output 07/24/18 07/24/18 07/25/18 1515:00 23:00 07:00 IntakeIntake Total 1385 ml 1059.5 ml 424.5 ml OutputOutput Total 4600 ml BalanceBalance -3215 ml 1059.5 ml 424.5 ml Results Result Diagram: 07/25/18 0400 07/25/18 0400 Results 24hrs Laboratory Tests Test 07/24/18 14:01 07/24/18 14:51 07/24/18 19:01 07/24/18 19:10 Bedside Glucose 115 145 White Blood 11.4 H Count Red Blood Count 3.06 #L Hemoglobin 10.0 #L Hematocrit 28.6 L Mean Corpuscular 93.5 Volume Mean Corpuscular 32.7 Hemoglobin Mean Corpuscular 35.0 Hemoglobin Isadora nt Red Cell 23.9 H Distribution Width Platelet Count 15 *L Mean Platelet Volume Immature 1.000 H Granulocytes % Neutrophils % 84.6 H Lymphocytes % 7.7 L Monocytes % 6.6 Eosinophils % 0.0 Basophils % 0.1 Nucleated Red 2.8 H Blood Cells % Immature 0.110 H Granulocytes # Neutrophils # 9.6 H Lymphocytes # 0.9 Monocytes # 0.8 Eosinophils # 0.0 Basophils # 0.0 Nucleated Red 0.3 H Blood Cells # Blood Gas Blood arterial Specimen Source Arterial Blood 07/24/2018 8:00: Date Drawn 00 PM Arterial Blood 7.535 H pH (Temp corrected) Arterial Blood 25.3 L pCO2 (Temp correct) Arterial Blood 137.2 H pO2 (Temp corrected) Arterial Blood 20.9 L HCO3 Arterial Blood -0.7 Base Excess Arterial Blood 98.7 H Oxygen Saturatio n [place] Test N/A Arterial Blood A-Line Gas Puncture Site Arterial 0.1 Blood Carboxyhem oglobin Arterial Blood 0.2 Methemoglobin Blood Gas A-a O2 47.0 H Differential Oxyhemoglobin 98.4 Percent Blood Gas 37.0 Temperature Blood Gas 12.0 Respiration Rate Blood Gas Actual 14 Respiration Rate Blood Gas VENT - AC Modality FiO2 30.0 Blood Gas Tidal 400.0 Volume Blood Gas Low 5.0 PEEP Setting Blood Gas [place] Notified Whom Blood Gas 07/24/2018 8:07: Notified Time 00 PM Test 07/24/18 20:51 07/25/18 00:52 07/25/18 04:00 07/25/18 04:57 Bedside Glucose 157 152 White Blood 12.6 H Count Red Blood Count 3.22 L Hemoglobin 10.5 L Hematocrit 30.9 L Mean Corpuscular 96.0 Volume Mean Corpuscular 32.6 Hemoglobin Mean Corpuscular 34.0 Hemoglobin Isadora nt Red Cell 25.5 H Distribution Width Platelet Count 76 #L Mean Platelet 13.1 H Volume Immature 1.300 H Granulocytes % Neutrophils % Segmented 59 Neutrophils % (Manual) Band Neutrophils 32 H % (Manual) Lymphocytes % Lymphocytes % 4 L (Manual) Monocytes % Monocytes % 5 (Manual) Eosinophils % Basophils % Nucleated Red 3 H Blood Cells % Immature 0.160 H Granulocytes # Neutrophils # Neutrophils # 7.9 H (Manual) Band Neutrophils 4.0 H # Lymphocytes 0.5 L (Manual) Lymphocytes # Monocytes # Monocytes # 0.6 (Manual) Eosinophils # Basophils # Nucleated Red Blood Cells # Platelet DECREASED Estimate Giant Platelets 8 H Polychromasia 1+ Anisocytosis 2+ Macrocytosis 2+ Spherocytes 1+ Prothrombin Time 27.9 #H Prothrombin Time 2.2 Ratio INR 2.60 International Normalized Ratio Activated 36.5 H Partial Thrombop last Time Fibrinogen 308.0 # Sodium Level 139 Potassium Level 3.3 L Chloride Level 89 L Carbon Dioxide 23 Level Anion Gap 27 #H Blood Urea 13 Nitrogen Creatinine 1.29 H Est Glomerular 49 L Filtrat Rate mL/min Glucose Level 154 Calcium Level 7.9 L Phosphorus Level 2.0 L Magnesium Level 1.9 Total Bilirubin 10.7 H Direct Bilirubin 7.40 H Indirect 3.3 H Bilirubin Aspartate Amino 3543 H Transf (AST/SGOT ) Alanine 928 H Aminotransferase (ALT/SGPT) Alkaline 94 Phosphatase Ammonia 25 Total Protein 7.5 # Albumin 4.7 Globulin 2.80 Albumin/Globulin 1.67 Ratio Amylase Level 153 H Lipase 3022 H Lab Scanned BLOOD TRANSFUSI Report ON Test 07/25/18 05:00 07/25/18 05:36 07/25/18 08:55 07/25/18 11:17 Blood Gas Blood arterial Specimen Source Arterial Blood 07/25/2018 5:30: Date Drawn 00 AM Arterial Blood 7.456 H pH (Temp corrected) Arterial Blood 31.4 L pCO2 (Temp correct) Arterial Blood 135.9 H pO2 (Temp corrected) Arterial Blood 21.6 L HCO3 Arterial Blood -1.5 Base Excess Arterial Blood 98.7 H Oxygen Saturatio n [place] Test N/A Arterial Blood A-Line Gas Puncture Site Arterial 0.3 Blood Carboxyhem oglobin Arterial Blood 0.2 Methemoglobin Blood Gas A-a O2 113.2 H Differential Oxyhemoglobin 98.2 Percent Blood Gas 37.0 Temperature Blood Gas 12.0 Respiration Rate Blood Gas Actual 13 Respiration Rate Blood Gas VENT - AC Modality FiO2 40.0 Blood Gas Tidal 400.0 Volume Blood Gas Low 5.0 PEEP Setting Blood Gas [place] Notified Whom Blood Gas 07/25/2018 5:47: Notified Time 47 AM Bedside Glucose 161 192 Lactic Acid 18.4 *H Level Medications Medication Current Medications Lorazepam (Ativan) 0.5 mg Q6H PRN IV .ANXIETY; Start 07/22/18 at 10:30 Ondansetron HCl (Zofran Inj) 4 mg Q6H PRN IV NAUSEA/VOMITING; Start 07/22/18 at 10:30 Aspirin (Aspirin) 81 mg DAILY PO ; Start 07/23/18 at 09:00; Status Hold Vancomycin HCl (Vanco Iv Per Pharmacy) VANCOMYCIN PER PHARMACY PER PROTOCOL XX ; Start 07/22/18 at 10:30 Multivit/Ca Carb/ B Cmplx/FA/Prenat (Lalita-Abigail) 1 tab DAILY PO Last administered on 07/25/18at 08:11; Admin Dose 1 TAB; Start 07/23/18 at 09:00 Dopamine HCl/ Dextrose 250 ml @ 2.205 mls/ hr TITRATE IV Last administered on 07/22/18at 11:31; Admin Dose 15.435 MLS/HR; Start 07/22/18 at 11:30 Phenylephrine HCl 250 ml @ 75 mls/hr TITRATE IV ; Start 07/22/18 at 12:00 Hydrocortisone (Solu-Cortef) 200 mg Q8 IV Last administered on 07/25/18at 05:16; Admin Dose 200 MG; Start 07/22/18 at 14:00 Acetaminophen (Tylenol Supp) 650 mg Q4H PRN [place] TEMP > 37C; Start 07/22/18 at 12:30 Acetaminophen (Tylenol Liquid) 650 mg Q4H PRN PO TEMP > 37C; Start 07/22/18 at 12:30 Meperidine HCl (Demerol) 12.5 mg Q4H PRN IV POST OPERATIVE SHIVERING; Start 07/22/18 at 12:30 Meperidine HCl (Demerol) 25 mg Q4H PRN IV POST OPERATIVE SHIVERING; Start 07/22/18 at 12:30 Eye Lubricant (Akwa Oint) 1 applic Q6 BOTH EYES Last administered on 07/25/18 05:16; Admin Dose 1 APPLIC; Start 07/22/18 at 18:00 Eye Lubricant (Artificial Tears Oph) 2 drop Q6 BOTH EYES Last administered on 07/25/18 05:16; Admin Dose 2 DROP; Start 07/22/18 at 18:00 Norepinephrine 250 ml @ 1.875 mls/ hr TITRATE IV Last administered on 07/23/18 01:01; Admin Dose 22.5 MLS/HR; Start 07/22/18 at 13:00 Docusate Sodium (Colace Liquid Cup) 100 mg BID NGT Last administered on 07/25/18 08:11; Admin Dose 100 MG; Start 07/22/18 at 22:00 Midazolam HCl 50 ml @ 1 mls/hr TITRATE IV Last administered on 07/25/18 05:18; Admin Dose 3 MLS/HR; Start 07/23/18 at 02:00 Famotidine (Pepcid) 20 mg DAILY NGT Last administered on 07/25/18 08:11; Admin Dose 20 MG; Start 07/23/18 at 12:00 Diagnostic Test (Pha) (Accu-Chek) 1 ea Q4 XX Last administered on 07/25/18 08:11; Admin Dose 1 EA; Start 07/23/18 at 13:00 Albumin Human 100 ml @ 100 mls/hr WITH DIALYSIS PRN IV SBP <90 DURING DIALYSIS Last administered on 07/23/18 18:07; Admin Dose 100 MLS/HR; Start 07/23/18 at 18:00 Miscellaneous Information (* Miscellaneous Pharmacy Order) Treatment of Hypoglycemia: 1.BG 51... Per protocol XX ; Start 07/24/18 at 02:00 Miscellaneous Information 1 ea NOTE XX ; Start 07/24/18 at 02:30 Glucose (Glutose) 15 gm Q15M PRN PO DECREASED GLUCOSE; Start 07/24/18 at 02:30 Glucose (Glutose) 22.5 gm Q15M PRN PO DECREASED GLUCOSE; Start 07/24/18 at 02:30 Dextrose (D50w Syringe) 25 ml Q15M PRN IV DECREASED GLUCOSE; Start 07/24/18 at 02:30 Dextrose (D50w Syringe) 50 ml Q15M PRN IV DECREASED GLUCOSE; Start 07/24/18 at 02:30 Glucagon (Glucagen) 1 mg Q15M PRN IM DECREASED GLUCOSE; Start 07/24/18 at 02:30 Glucose (Glutose) 15 gm Q15M PRN BUCCAL DECREASED GLUCOSE; Start 07/24/18 at 02:30 Cefepime HCl 50 ml @ 100 mls/hr DAILY IVPB Last administered on 07/25/18at 08:11; Admin Dose 100 MLS/HR; Start 07/24/18 at 12:30 Metronidazole (Flagyl) 500 mg Q8 PO Last administered on 07/25/18at 05:16; Admin Dose 500 MG; Start 07/24/18 at 13:00 Total Parenteral Nutrition 1,000 ml @ 40 mls/hr Q24H IV ; Start 07/24/18 at 12:00; Status UNV Potassium Phosphate 15 mm/ Sodium Chloride 255 ml @ 63.75 mls/ hr ONCE ONCE IVPB ; Start 07/25/18 at 12:00; Stop 07/25/18 at 15:59 Phytonadione 5 mg/ Dextrose 50.5 ml @ 101 mls/hr ONCE ONCE IVPB ; Start 07/25/18 at 13:00; Stop 07/25/18 at 13:29 Calcium Acetate (Phoslo) 1,334 mg TID NGT ; Start 07/25/18 at 13:00 OSIRIS COX NP July 25, 2018 13:03
--- NOTE | 2018-07-25 13:13 | CONS ---
Assessment/Plan Assessment/Plan Hospital Course (Demo Recall) Severe shock-improving Likely sepsis Cardiomyopathy with left ventricular ejection fraction 45% Pacemaker dependent End-stage renal disease on hemodialysis PEA cardiac arrest Respiratory failure status post intubation Mildly elevated troponin Acute blood loss anemia DICthrombocytopenia Acute CVA -Patient has remained off IV pressors. Blood pressure remained stable. We will continue to hold all antihypertensives -Patient undergoing ID work-up, patient with history of recent MSSA bacteremia at outside facility -Aspirin stopped secondary to anemia and thrombocytopenia -Fluid management and electrolytes as per nephrology -Pulmonary for vent management -Discussed with patient's brother and mother at bedside Consultation Date/Type/Reason Admit Date/Time July 22, 2018 at 09:09 Initial Consult Date 07/23/18 Type of Consult Cardiology Requesting Provider: TRINITY ELENA Date/Time of Note DATE: 07/25/18 TIME: 13:09 24 HR Interval Summary Free Text/Dictation Patient remains intubated. Remains on sedation. Has remained off IV pressors. No new cardiac issues as per nursing staff Exam/Review of Systems Vital Signs Vitals Vital Signs Date Temp Pulse Resp B/P (MAP) Pulse Ox O2 O2 Flow FiO2 Time Delivery Rate 07/25/18 60 12:00 07/25/18 14 109/87 99 Mechanical 11:00 (94) Ventilator 07/25/18 30 08:00 07/25/18 97.6 08:00 07/22/18 2.0 10:00 Intake and Output 07/24/18 07/24/18 07/25/18 1515:00 23:00 07:00 IntakeIntake Total 1385 ml 1059.5 ml 424.5 ml OutputOutput Total 4600 ml BalanceBalance -3215 ml 1059.5 ml 424.5 ml Exam Exam Sedated and intubated, no apparent distress, family and nurse at bedside ENMT: intubated Respiratory: other (Coarse breath sounds bilaterally, no wheezing) Cardiovascular: regular rate and rhythm (S1-S2 heard) Gastrointestinal: soft, bowel sounds, distended Extremities: edema Labs Result Diagram: 07/25/18 0400 07/25/18 0400 Results 24hrs Laboratory Tests Test 07/24/18 14:01 07/24/18 14:51 07/24/18 19:01 07/24/18 19:10 Bedside Glucose 115 145 White Blood 11.4 H Count Red Blood Count 3.06 #L Hemoglobin 10.0 #L Hematocrit 28.6 L Mean Corpuscular 93.5 Volume Mean Corpuscular 32.7 Hemoglobin Mean Corpuscular 35.0 Hemoglobin Isadora nt Red Cell 23.9 H Distribution Width Platelet Count 15 *L Mean Platelet Volume Immature 1.000 H Granulocytes % Neutrophils % 84.6 H Lymphocytes % 7.7 L Monocytes % 6.6 Eosinophils % 0.0 Basophils % 0.1 Nucleated Red 2.8 H Blood Cells % Immature 0.110 H Granulocytes # Neutrophils # 9.6 H Lymphocytes # 0.9 Monocytes # 0.8 Eosinophils # 0.0 Basophils # 0.0 Nucleated Red 0.3 H Blood Cells # Blood Gas Blood arterial Specimen Source Arterial Blood 07/24/2018 8:00: Date Drawn 00 PM Arterial Blood 7.535 H pH (Temp corrected) Arterial Blood 25.3 L pCO2 (Temp correct) Arterial Blood 137.2 H pO2 (Temp corrected) Arterial Blood 20.9 L HCO3 Arterial Blood -0.7 Base Excess Arterial Blood 98.7 H Oxygen Saturatio n [place] Test N/A Arterial Blood A-Line Gas Puncture Site Arterial 0.1 Blood Carboxyhem oglobin Arterial Blood 0.2 Methemoglobin Blood Gas A-a O2 47.0 H Differential Oxyhemoglobin 98.4 Percent Blood Gas 37.0 Temperature Blood Gas 12.0 Respiration Rate Blood Gas Actual 14 Respiration Rate Blood Gas VENT - AC Modality FiO2 30.0 Blood Gas Tidal 400.0 Volume Blood Gas Low 5.0 PEEP Setting Blood Gas [place] Notified Whom Blood Gas 07/24/2018 8:07: Notified Time 00 PM Test 07/24/18 20:51 07/25/18 00:52 07/25/18 04:00 07/25/18 04:57 Bedside Glucose 157 152 White Blood 12.6 H Count Red Blood Count 3.22 L Hemoglobin 10.5 L Hematocrit 30.9 L Mean Corpuscular 96.0 Volume Mean Corpuscular 32.6 Hemoglobin Mean Corpuscular 34.0 Hemoglobin Isadora nt Red Cell 25.5 H Distribution Width Platelet Count 76 #L Mean Platelet 13.1 H Volume Immature 1.300 H Granulocytes % Neutrophils % Segmented 59 Neutrophils % (Manual) Band Neutrophils 32 H % (Manual) Lymphocytes % Lymphocytes % 4 L (Manual) Monocytes % Monocytes % 5 (Manual) Eosinophils % Basophils % Nucleated Red 3 H Blood Cells % Immature 0.160 H Granulocytes # Neutrophils # Neutrophils # 7.9 H (Manual) Band Neutrophils 4.0 H # Lymphocytes 0.5 L (Manual) Lymphocytes # Monocytes # Monocytes # 0.6 (Manual) Eosinophils # Basophils # Nucleated Red Blood Cells # Platelet DECREASED Estimate Giant Platelets 8 H Polychromasia 1+ Anisocytosis 2+ Macrocytosis 2+ Spherocytes 1+ Prothrombin Time 27.9 #H Prothrombin Time 2.2 Ratio INR 2.60 International Normalized Ratio Activated 36.5 H Partial Thrombop last Time Fibrinogen 308.0 # Sodium Level 139 Potassium Level 3.3 L Chloride Level 89 L Carbon Dioxide 23 Level Anion Gap 27 #H Blood Urea 13 Nitrogen Creatinine 1.29 H Est Glomerular 49 L Filtrat Rate mL/min Glucose Level 154 Calcium Level 7.9 L Phosphorus Level 2.0 L Magnesium Level 1.9 Total Bilirubin 10.7 H Direct Bilirubin 7.40 H Indirect 3.3 H Bilirubin Aspartate Amino 3543 H Transf (AST/SGOT ) Alanine 928 H Aminotransferase (ALT/SGPT) Alkaline 94 Phosphatase Ammonia 25 Total Protein 7.5 # Albumin 4.7 Globulin 2.80 Albumin/Globulin 1.67 Ratio Amylase Level 153 H Lipase 3022 H Lab Scanned BLOOD TRANSFUSI Report ON Test 07/25/18 05:00 07/25/18 05:36 07/25/18 08:55 07/25/18 11:17 Blood Gas Blood arterial Specimen Source Arterial Blood 07/25/2018 5:30: Date Drawn 00 AM Arterial Blood 7.456 H pH (Temp corrected) Arterial Blood 31.4 L pCO2 (Temp correct) Arterial Blood 135.9 H pO2 (Temp corrected) Arterial Blood 21.6 L HCO3 Arterial Blood -1.5 Base Excess Arterial Blood 98.7 H Oxygen Saturatio n [place] Test N/A Arterial Blood A-Line Gas Puncture Site Arterial 0.3 Blood Carboxyhem oglobin Arterial Blood 0.2 Methemoglobin Blood Gas A-a O2 113.2 H Differential Oxyhemoglobin 98.2 Percent Blood Gas 37.0 Temperature Blood Gas 12.0 Respiration Rate Blood Gas Actual 13 Respiration Rate Blood Gas VENT - AC Modality FiO2 40.0 Blood Gas Tidal 400.0 Volume Blood Gas Low 5.0 PEEP Setting Blood Gas [place] Notified Whom Blood Gas 07/25/2018 5:47: Notified Time 47 AM Bedside Glucose 161 192 Lactic Acid 18.4 *H Level Medications Medications Current Medications Lorazepam (Ativan) 0.5 mg Q6H PRN IV .ANXIETY; Start 07/22/18 at 10:30 Ondansetron HCl (Zofran Inj) 4 mg Q6H PRN IV NAUSEA/VOMITING; Start 07/22/18 at 10:30 Aspirin (Aspirin) 81 mg DAILY PO ; Start 07/23/18 at 09:00; Status Hold Vancomycin HCl (Vanco Iv Per Pharmacy) VANCOMYCIN PER PHARMACY PER PROTOCOL XX ; Start 07/22/18 at 10:30 Multivit/Ca Carb/ B Cmplx/FA/Prenat (Lalita-Abigail) 1 tab DAILY PO Last administered on 07/25/18at 08:11; Admin Dose 1 TAB; Start 07/23/18 at 09:00 Dopamine HCl/ Dextrose 250 ml @ 2.205 mls/ hr TITRATE IV Last administered on 07/22/18at 11:31; Admin Dose 15.435 MLS/HR; Start 07/22/18 at 11:30 Phenylephrine HCl 250 ml @ 75 mls/hr TITRATE IV ; Start 07/22/18 at 12:00 Hydrocortisone (Solu-Cortef) 200 mg Q8 IV Last administered on 07/25/18at 05:16; Admin Dose 200 MG; Start 07/22/18 at 14:00 Acetaminophen (Tylenol Supp) 650 mg Q4H PRN [place] TEMP > 37C; Start 07/22/18 at 12:30 Acetaminophen (Tylenol Liquid) 650 mg Q4H PRN PO TEMP > 37C; Start 07/22/18 at 12:30 Meperidine HCl (Demerol) 12.5 mg Q4H PRN IV POST OPERATIVE SHIVERING; Start 07/22/18 at 12:30 Meperidine HCl (Demerol) 25 mg Q4H PRN IV POST OPERATIVE SHIVERING; Start 07/22/18 at 12:30 Eye Lubricant (Akwa Oint) 1 applic Q6 BOTH EYES Last administered on 07/25/18at 05:16; Admin Dose 1 APPLIC; Start 07/22/18 at 18:00 Eye Lubricant (Artificial Tears Oph) 2 drop Q6 BOTH EYES Last administered on 07/25/18at 05:16; Admin Dose 2 DROP; Start 07/22/18 at 18:00 Norepinephrine 250 ml @ 1.875 mls/ hr TITRATE IV Last administered on 07/23/18at 01:01; Admin Dose 22.5 MLS/HR; Start 07/22/18 at 13:00 Docusate Sodium (Colace Liquid Cup) 100 mg BID NGT Last administered on 07/25/18at 08:11; Admin Dose 100 MG; Start 07/22/18 at 22:00 Midazolam HCl 50 ml @ 1 mls/hr TITRATE IV Last administered on 07/25/18at 05:18; Admin Dose 3 MLS/HR; Start 07/23/18 at 02:00 Famotidine (Pepcid) 20 mg DAILY NGT Last administered on 07/25/18at 08:11; Admin Dose 20 MG; Start 07/23/18 at 12:00 Diagnostic Test (Pha) (Accu-Chek) 1 ea Q4 XX Last administered on 07/25/18at 08:11; Admin Dose 1 EA; Start 07/23/18 at 13:00 Albumin Human 100 ml @ 100 mls/hr WITH DIALYSIS PRN IV SBP <90 DURING DIALYSIS Last administered on 07/23/18at 18:07; Admin Dose 100 MLS/HR; Start 07/23/18 at 18:00 Miscellaneous Information (* Miscellaneous Pharmacy Order) Treatment of Hypoglycemia: 1.BG 51... Per protocol XX ; Start 07/24/18 at 02:00 Miscellaneous Information 1 ea NOTE XX ; Start 07/24/18 at 02:30 Glucose (Glutose) 15 gm Q15M PRN PO DECREASED GLUCOSE; Start 07/24/18 at 02:30 Glucose (Glutose) 22.5 gm Q15M PRN PO DECREASED GLUCOSE; Start 07/24/18 at 0 2:30 Dextrose (D50w Syringe) 25 ml Q15M PRN IV DECREASED GLUCOSE; Start 07/24/18 at 02:30 Dextrose (D50w Syringe) 50 ml Q15M PRN IV DECREASED GLUCOSE; Start 07/24/18 at 02:30 Glucagon (Glucagen) 1 mg Q15M PRN IM DECREASED GLUCOSE; Start 07/24/18 at 02:30 Glucose (Glutose) 15 gm Q15M PRN BUCCAL DECREASED GLUCOSE; Start 07/24/18 at 02:30 Cefepime HCl 50 ml @ 100 mls/hr DAILY IVPB Last administered on 07/25/18at 08:11; Admin Dose 100 MLS/HR; Start 07/24/18 at 12:30 Metronidazole (Flagyl) 500 mg Q8 PO Last administered on 07/25/18at 05:16; Admin Dose 500 MG; Start 07/24/18 at 13:00 Total Parenteral Nutrition 1,000 ml @ 40 mls/hr Q24H IV ; Start 07/24/18 at 12:00; Status UNV Potassium Phosphate 15 mm/ Sodium Chloride 255 ml @ 63.75 mls/ hr ONCE ONCE IVPB ; Start 07/25/18 at 12:00; Stop 07/25/18 at 15:59 Phytonadione 5 mg/ Dextrose 50.5 ml @ 101 mls/hr ONCE ONCE IVPB ; Start 07/25/18 at 13:00; Stop 07/25/18 at 13:29 Calcium Acetate (Phoslo) 1,334 mg TID NGT ; Start 07/25/18 at 13:00 Jonathan Woodard DO July 25, 2018 13:13
[2018-07-25] MEDS: CALCIUM ACETATE 667 MG CAP NGT SCH ×2 (13:20→20:57)
[2018-07-25] MEDS: DEXTROSE 50% 50 ML SYRINGE IV PRN ×2 (13:39→23:07)
[2018-07-25] MEDS ORDERED: SOD CHLORIDE 0.45% 1,000 ML IV SCH (14:00)
--- NOTE | 2018-07-25 14:50 | CONS ---
Assessment/Plan Assessment/Plan Assessment/Plan (Daily) IMPRESSION: 1. Sepsis, multifocal pneumonia. 2. Vent dependent respiratory failure. 3. End-stage renal disease on dialysis. 4. Severe thrombocytopenia. 5. Increased lipase, but there is no evidence of pancreatitis on the CAT scan. Symptom analysis cannot be done regarding the abdominal pain. 6. Elevated troponin. 7. Paroxysmal atrial fibrillation. 8. Status post pacemaker AICD. 9. Anemia, megaloblastic. 10. Malnutrition. 11. History of methicillin-susceptible Staphylococcus aureus bacteremia. There was no evidence of any vegetation on [place] and the patient's ejection fraction is 45%. 12. Coagulopathy. 13. Jaundice. 14. Thrombocytopenia improved Plan Resume feeding through the NG tube until the goal is achieved. Continue all supportive care Continue antibiotics as per the ID Monitor LFT and PT PTT Consultation Date/Type/Reason Admit Date/Time July 22, 2018 at 09:09 Initial Consult Date 07/23/18 Requesting Provider: TRINITY ELENA Date/Time of Note DATE: 07/25/18 TIME: 14:47 24 HR Interval Summary Subjective hx not possible: pt non-verbal, pt critical Exam/Review of Systems Exam Vitals Vital Signs Date Temp Pulse Resp B/P (MAP) Pulse Ox O2 O2 Flow FiO2 Time Delivery Rate 07/25/18 60 12:00 07/25/18 14 109/87 99 Mechanical 11:00 (94) Ventilator 07/25/18 30 08:00 07/25/18 97.6 08:00 07/22/18 2.0 10:00 Intake and Output 07/24/18 07/24/18 07/25/18 1515:00 23:00 07:00 IntakeIntake Total 1385 ml 1059.5 ml 424.5 ml OutputOutput Total 4600 ml BalanceBalance -3215 ml 1059.5 ml 424.5 ml Constitutional: non-verbal ENMT: intubated Respiratory: diminished breath sounds Cardiovascular: regular rate and rhythm, nl pulses Gastrointestinal: soft, non-tender Neurological: lethargic Results Result Diagram: 07/25/18 0400 07/25/18 0400 Results 24hrs Laboratory Tests Test 07/24/18 14:51 07/24/18 19:01 07/24/18 19:10 07/24/18 20:51 White Blood 11.4 H Count Red Blood Count 3.06 #L Hemoglobin 10.0 #L Hematocrit 28.6 L Mean Corpuscular 93.5 Volume Mean Corpuscular 32.7 Hemoglobin Mean Corpuscular 35.0 Hemoglobin Isadora nt Red Cell 23.9 H Distribution Width Platelet Count 15 *L Mean Platelet Volume Immature 1.000 H Granulocytes % Neutrophils % 84.6 H Lymphocytes % 7.7 L Monocytes % 6.6 Eosinophils % 0.0 Basophils % 0.1 Nucleated Red 2.8 H Blood Cells % Immature 0.110 H Granulocytes # Neutrophils # 9.6 H Lymphocytes # 0.9 Monocytes # 0.8 Eosinophils # 0.0 Basophils # 0.0 Nucleated Red 0.3 H Blood Cells # Bedside Glucose 145 157 Blood Gas Blood arterial Specimen Source Arterial Blood 07/24/2018 8:00: Date Drawn 00 PM Arterial Blood 7.535 H pH (Temp corrected) Arterial Blood 25.3 L pCO2 (Temp correct) Arterial Blood 137.2 H pO2 (Temp corrected) Arterial Blood 20.9 L HCO3 Arterial Blood -0.7 Base Excess Arterial Blood 98.7 H Oxygen Saturatio n [place] Test N/A Arterial Blood A-Line Gas Puncture Site Arterial 0.1 Blood Carboxyhem oglobin Arterial Blood 0.2 Methemoglobin Blood Gas A-a O2 47.0 H Differential Oxyhemoglobin 98.4 Percent Blood Gas 37.0 Temperature Blood Gas 12.0 Respiration Rate Blood Gas Actual 14 Respiration Rate Blood Gas VENT - AC Modality FiO2 30.0 Blood Gas Tidal 400.0 Volume Blood Gas Low 5.0 PEEP Setting Blood Gas CA Notified Whom Blood Gas 07/24/2018 8:07: Notified Time 00 PM Test 07/25/18 00:52 07/25/18 04:00 07/25/18 04:57 07/25/18 05:00 Bedside Glucose 152 White Blood 12.6 H Count Red Blood Count 3.22 L Hemoglobin 10.5 L Hematocrit 30.9 L Mean Corpuscular 96.0 Volume Mean Corpuscular 32.6 Hemoglobin Mean Corpuscular 34.0 Hemoglobin Isadora nt Red Cell 25.5 H Distribution Width Platelet Count 76 #L Mean Platelet 13.1 H Volume Immature 1.300 H Granulocytes % Neutrophils % Segmented 59 Neutrophils % (Manual) Band Neutrophils 32 H % (Manual) Lymphocytes % Lymphocytes % 4 L (Manual) Monocytes % Monocytes % 5 (Manual) Eosinophils % Basophils % Nucleated Red 3 H Blood Cells % Immature 0.160 H Granulocytes # Neutrophils # Neutrophils # 7.9 H (Manual) Band Neutrophils 4.0 H # Lymphocytes 0.5 L (Manual) Lymphocytes # Monocytes # Monocytes # 0.6 (Manual) Eosinophils # Basophils # Nucleated Red Blood Cells # Platelet DECREASED Estimate Giant Platelets 8 H Polychromasia 1+ Anisocytosis 2+ Macrocytosis 2+ Spherocytes 1+ Prothrombin Time 27.9 #H Prothrombin Time 2.2 Ratio INR 2.60 International Normalized Ratio Activated 36.5 H Partial Thrombop last Time Fibrinogen 308.0 # Sodium Level 139 Potassium Level 3.3 L Chloride Level 89 L Carbon Dioxide 23 Level Anion Gap 27 #H Blood Urea 13 Nitrogen Creatinine 1.29 H Est Glomerular 49 L Filtrat Rate mL/min Glucose Level 154 Calcium Level 7.9 L Phosphorus Level 2.0 L Magnesium Level 1.9 Total Bilirubin 10.7 H Direct Bilirubin 7.40 H Indirect 3.3 H Bilirubin Aspartate Amino 3543 H Transf (AST/SGOT ) Alanine 928 H Aminotransferase (ALT/SGPT) Alkaline 94 Phosphatase Ammonia 25 Total Protein 7.5 # Albumin 4.7 Globulin 2.80 Albumin/Globulin 1.67 Ratio Amylase Level 153 H Lipase 3022 H Lab Scanned BLOOD TRANSFUSI Report ON Blood Gas Blood arterial Specimen Source Arterial Blood 07/25/2018 5:30: Date Drawn 00 AM Arterial Blood 7.456 H pH (Temp corrected) Arterial Blood 31.4 L pCO2 (Temp correct) Arterial Blood 135.9 H pO2 (Temp corrected) Arterial Blood 21.6 L HCO3 Arterial Blood -1.5 Base Excess Arterial Blood 98.7 H Oxygen Saturatio n [place] Test N/A Arterial Blood A-Line Gas Puncture Site Arterial 0.3 Blood Carboxyhem oglobin Arterial Blood 0.2 Methemoglobin Blood Gas A-a O2 113.2 H Differential Oxyhemoglobin 98.2 Percent Blood Gas 37.0 Temperature Blood Gas 12.0 Respiration Rate Blood Gas Actual 13 Respiration Rate Blood Gas VENT - AC Modality FiO2 40.0 Blood Gas Tidal 400.0 Volume Blood Gas Low 5.0 PEEP Setting Blood Gas [place] Notified Whom Blood Gas 07/25/2018 5:47: Notified Time 47 AM Test 07/25/18 05:36 07/25/18 08:55 07/25/18 11:17 07/25/18 13:37 Bedside Glucose 161 192 63 L Lactic Acid 18.4 *H Level Test 07/25/18 14:21 Bedside Glucose 184 Medications Medication Current Medications Lorazepam (Ativan) 0.5 mg Q6H PRN IV .ANXIETY; Start 07/22/18 at 10:30 Ondansetron HCl (Zofran Inj) 4 mg Q6H PRN IV NAUSEA/VOMITING; Start 07/22/18 at 10:30 Aspirin (Aspirin) 81 mg DAILY PO ; Start 07/23/18 at 09:00; Status Hold Vancomycin HCl (Vanco Iv Per Pharmacy) VANCOMYCIN PER PHARMACY PER PROTOCOL XX ; Start 07/22/18 at 10:30 Multivit/Ca Carb/ B Cmplx/FA/Prenat (Lalita-Abigail) 1 tab DAILY PO Last administ ered on 07/25/18at 08:11; Admin Dose 1 TAB; Start 07/23/18 at 09:00 Dopamine HCl/ Dextrose 250 ml @ 2.205 mls/ hr TITRATE IV Last administered on 07/22/18at 11:31; Admin Dose 15.435 MLS/HR; Start 07/22/18 at 11:30 Phenylephrine HCl 250 ml @ 75 mls/hr TITRATE IV ; Start 07/22/18 at 12:00 Hydrocortisone (Solu-Cortef) 200 mg Q8 IV Last administered on 07/25/18at 13:19; Admin Dose 200 MG; Start 07/22/18 at 14:00 Acetaminophen (Tylenol Supp) 650 mg Q4H PRN [place] TEMP > 37C; Start 07/22/18 at 12:30 Acetaminophen (Tylenol Liquid) 650 mg Q4H PRN PO TEMP > 37C; Start 07/22/18 at 12:30 Meperidine HCl (Demerol) 12.5 mg Q4H PRN IV POST OPERATIVE SHIVERING; Start 07/22/18 at 12:30 Meperidine HCl (Demerol) 25 mg Q4H PRN IV POST OPERATIVE SHIVERING; Start 07/22/18 at 12:30 Eye Lubricant (Akwa Oint) 1 applic Q6 BOTH EYES Last administered on 07/25/18at 13:20; Admin Dose 1 APPLIC; Start 07/22/18 at 18:00 Eye Lubricant (Artificial Tears Oph) 2 drop Q6 BOTH EYES Last administered on 07/25/18 13:20; Admin Dose 2 DROP; Start 07/22/18 at 18:00 Norepinephrine 250 ml @ 1.875 mls/ hr TITRATE IV Last administered on 07/23/18 01:01; Admin Dose 22.5 MLS/HR; Start 07/22/18 at 13:00 Docusate Sodium (Colace Liquid Cup) 100 mg BID NGT Last administered on 07/25/18 08:11; Admin Dose 100 MG; Start 07/22/18 at 22:00 Midazolam HCl 50 ml @ 1 mls/hr TITRATE IV Last administered on 07/25/18 05:18; Admin Dose 3 MLS/HR; Start 07/23/18 at 02:00 Famotidine (Pepcid) 20 mg DAILY NGT Last administered on 07/25/18 08:11; Admin Dose 20 MG; Start 07/23/18 at 12:00 Diagnostic Test (Pha) (Accu-Chek) 1 ea Q4 XX Last administered on 07/25/18 13:19; Admin Dose 1 EA; Start 07/23/18 at 13:00 Albumin Human 100 ml @ 100 mls/hr WITH DIALYSIS PRN IV SBP <90 DURING DIALYSIS Last administered on 07/23/18 18:07; Admin Dose 100 MLS/HR; Start 07/23/18 at 18:00 Miscellaneous Information (* Miscellaneous Pharmacy Order) Treatment of Hypoglycemia: 1.BG 51... Per protocol XX ; Start 07/24/18 at 02:00 Miscellaneous Information 1 ea NOTE XX ; Start 07/24/18 at 02:30 Glucose (Glutose) 15 gm Q15M PRN PO DECREASED GLUCOSE; Start 07/24/18 at 02:30 Glucose (Glutose) 22.5 gm Q15M PRN PO DECREASED GLUCOSE; Start 07/24/18 at 02:30 Dextrose (D50w Syringe) 25 ml Q15M PRN IV DECREASED GLUCOSE Last administered on 07/25/18 13:39; Admin Dose 25 ML; Start 07/24/18 at 02:30 Dextrose (D50w Syringe) 50 ml Q15M PRN IV DECREASED GLUCOSE; Start 07/24/18 at 02:30 Glucagon (Glucagen) 1 mg Q15M PRN IM DECREASED GLUCOSE; Start 07/24/18 at 02:30 Glucose (Glutose) 15 gm Q15M PRN BUCCAL DECREASED GLUCOSE; Start 07/24/18 at 02 :30 Cefepime HCl 50 ml @ 100 mls/hr DAILY IVPB Last administered on 07/25/18at 08:11; Admin Dose 100 MLS/HR; Start 07/24/18 at 12:30 Metronidazole (Flagyl) 500 mg Q8 PO Last administered on 07/25/18at 13:19; Admin Dose 500 MG; Start 07/24/18 at 13:00 Total Parenteral Nutrition 1,000 ml @ 40 mls/hr Q24H IV ; Start 07/24/18 at 12:00; Status UNV Potassium Phosphate 15 mm/ Sodium Chloride 255 ml @ 63.75 mls/ hr ONCE ONCE IVPB Last administered on 07/25/18at 13:21; Admin Dose 63.75 MLS/HR; Start 07/25/18 at 12:00; Stop 07/25/18 at 15:59 Calcium Acetate (Phoslo) 1,334 mg TID NGT Last administered on 07/25/18at 13:20; Admin Dose 1,334 MG; Start 07/25/18 at 13:00 Sodium Chloride 1,000 ml @ 40 mls/hr Q24H IV Last administered on 07/25/18at 13:47; Admin Dose 40 MLS/HR; Start 07/25/18 at 14:00 BREA KEN MD July 25, 2018 14:50
[2018-07-25] MEDS: DEXTROSE 5%-0.45% NACL 1,000 ML IV SCH (23:20)
[2018-07-26] VITALS (50 sets, daily range): BP systolic 93–149; BP diastolic 67–110; PULSE 60–95; RESP 12–26
[2018-07-26] MEDS: ACCU-CHEK XX SCH ×6 (01:21→21:18)
[2018-07-26] MEDS: ARTIFICIAL TEARS 15 ML OPH BOTH EYES SCH ×3 (05:47→18:41)
[2018-07-26] MEDS: metroNIDAZOLE 500 MG TAB PO SCH ×3 (05:47→21:19)
[2018-07-26] MEDS: OCULAR LUBRICANT 3.5 GM OPH OINT BOTH EYES SCH ×3 (05:47→18:41)
[2018-07-26] MEDS: HYDROCORTISONE 100 MG INJ IV SCH ×3 (06:03→21:18)
--- NOTE | 2018-07-26 07:54 | CONS ---
Assessment/Plan Assessment/Plan Assessment/Plan (Daily) Ventilator settings; assist control of 12, tidal volume 400, PEEP of 5, 30% FiO2. Assessment and recommendations; 1. Patient admitted with respiratory failure with cardiac arrest requiring brief CPR not meeting criteria for hypothermia protocol because of recovery of adequate mental status. 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 Patient exhibiting severe encephalopathy. 2. Chronic renal failure, on hemodialysis. 3. History of cardiac arrhythmia, status post pacemaker placement in the past as well. 4. Dependent state at home. 5. Severe thrombocytopenia 6. Anemia 7. Likely ongoing sepsis, patient currently on appropriate antimicrobial regimen. 8. Acute pancreatitis with interval improvement. 9. Diabetes, patient also presented with hypoglycemia on admission. 10. Severe metabolic acidosis on presentation with interval resolution. Possib ly related to intravascular volume depletion. Continue current supportive care. Hemodialysis per acid conditioner. Monitor platelet count. Per shingle cutter, patient to be transfused if the platelet co unt drops below 10,000. Prognosis is very guarded and will depend to a significant extent on adequate mental status recovery. I did have a detailed discussion with the patient's brother at bedside and answered all his questions. 35 minutes of critical care time was spent evaluating the patient. Consultation Date/Type/Reason Admit Date/Time July 22, 2018 at 09:09 Initial Consult Date 07/23/18 Type of Consult Pulmonary/critical care Pulmonary consult requested for evaluation of respiratory failure. Patient is a 27-year-old female who was brought into the hospital with confusion. Patient was found to be severely hypoglycemic but because of hemodynamic instability and poor mental status she was intubated by the ER ph ysician. Patient also was in PEA and required CPR lasting 10 minutes. There was spontaneous recovery of mental status not requiring hypothermia protocol. Patient however has remained mildly hypotensive requiring low-dose Levophed. By the time I saw her, patient is orally intubated and sedated. History was obtained from medical records as well as from patient's sister who was present in the room. According to the patient's sister patient also had similar episode about 2 weeks ago requiring intubation at another facility. Past medical history; 1. History of end-stage renal disease for the last 5 years. 2. History of retinal pigmentosa. 3. Patient had an episode of febrile seizure 2 weeks ago. Without any prior history of seizure activity. 4. Patient is heavily dependent on ADLs. 5. History of diabetes. 6. History of DVT. Patient however has been off anticoagulation per her floorworker distributor recommendations. Medications; reviewed. Patient is currently on Levophed 2 mics per minute, Versed 4 mg/h, insulin drip 1 2units/h. Other medications were reviewed as well. Allergies; as outlined above. Family history; she is single. She lives with her family at home. Occupational history; patient is on disability. Review of system; unable to be obtained. General exam; young female, appears quite emaciated. Orally intubated. Sedated. Currently in no distress. Requesting Provider: TRINITY ELENA Date/Time of Note DATE: 07/26/18 TIME: 07:51 24 HR Interval Summary Free Text/Dictation Patient's condition remains critical. Patient remains unresponsive. But has remained hemodynamically stable. General exam; young female, orally intubated, unresponsive, currently in no distress. Exam/Review of Systems Exam Vitals Vital Signs Date Temp Pulse Resp B/P (MAP) Pulse Ox O2 O2 Flow FiO2 Time Delivery Rate 07/26/18 61 14 130/75 100 Mechanical 07:00 (93) Ventilator 07/26/18 30 05:00 07/26/18 96.0 04:00 07/22/18 2.0 10:00 Intake and Output 07/25/18 07/25/18 07/26/18 1515:00 23:00 07:00 IntakeIntake Total 182 ml 806 ml 420 ml BalanceBalance 182 ml 806 ml 420 ml Exam H EENT exam; supple neck, no JVD. No lymphadenopathy. Midline trachea. No thyromegaly. Nasogastric tube in place. Patient has fair dentition. Ecchymosis around neck area. Chest exam; diminished but clear breath sounds. S1-S2 audible, no murmurs. Pacemaker in left chest wall. Abdomen exam; soft, no organomegaly. Bowel sounds are sluggish. Extremity exam; trace edema. BOILER SHOP MECHANIC exam; patient remains unresponsive. Results Result Diagram: 07/26/18 0514 07/26/18 0502 Results 24hrs Laboratory Tests Test 07/25/18 08:55 07/25/18 11:17 07/25/18 13:37 07/25/18 14:21 Bedside Glucose 192 63 L 184 Lactic Acid Level 18.4 *H Test 07/25/18 17:12 07/25/18 20:55 07/25/18 23:04 07/25/18 23:25 Bedside Glucose 86 70 60 L 197 Test 07/25/18 23:40 07/26/18 01:21 07/26/18 04:32 07/26/18 04:51 Bedside Glucose 142 135 154 Random Vancomycin 12.4 Level Test 07/26/18 05:02 07/26/18 05:14 07/26/18 05:28 Sodium Level 136 Potassium Level 3.0 L Chloride Level 87 L Carbon Dioxide 18 L Level Anion Gap 31 H Blood Urea 22 H Nitrogen Creatinine 2.07 H Est Glomerular 29 L Filtrat Rate mL/min Glucose Level 130 Calcium Level 7.6 L Total Bilirubin 11.8 H Direct Bilirubin 9.80 H Indirect Bilirubin 2.0 H Aspartate Amino Transf (AST/SGOT) Alanine 1271 H Aminotransferase ( ALT/SGPT) Alkaline 107 Phosphatase Total Protein 6.6 Albumin 3.9 Globulin 2.70 Albumin/Globulin 1.44 Ratio Lipase 1391 H White Blood Count 11.9 H Red Blood Count 3.24 L Hemoglobin 10.6 L Hematocrit 32.5 L Mean Corpuscular 100.3 Volume Mean Corpuscular 32.7 Hemoglobin Mean Corpuscular 32.6 Hemoglobin Concent Red Cell 26.5 H Distribution Width Platelet Count 12 #*L Mean Platelet Volume Immature 1.800 H Granulocytes % Neutrophils % Segmented 52 Neutrophils % (Manual) Band Neutrophils % 35 H (Manual) Lymphocytes % Lymphocytes % 6 L (Manual) Monocytes % Monocytes % 7 (Manual) Eosinophils % Basophils % Nucleated Red 11 H Blood Cells % Immature 0.210 H Granulocytes # Neutrophils # Neutrophils # 6.7 (Manual) Band Neutrophils # 4.1 H Lymphocytes 0.7 L (Manual) Lymphocytes # Monocytes # Monocytes # 0.8 (Manual) Eosinophils # Basophils # Nucleated Red Blood Cells # Platelet Estimate SIG DECREASED Giant Platelets 1 H Polychromasia 1+ Poikilocytosis 3+ Anisocytosis 2+ Microcytosis 1+ Macrocytosis 2+ Ovalocytes 1+ Prothrombin Time 36.6 #H Prothrombin Time 2.9 Ratio INR International 3.69 Normalized Ratio Activated 44.[address] Time Fibrinogen 214.0 # Medications Medication Current Medications Lorazepam (Ativan) 0.5 mg Q6H PRN IV .ANXIETY; Start 07/22/18 at 10:30 Ondansetron HCl (Zofran Inj) 4 mg Q6H PRN IV NAUSEA/VOMITING; Start 07/22/18 at 10:30 Aspirin (Aspirin) 81 mg DAILY PO ; Start 07/23/18 at 09:00; Status Hold Vancomycin HCl (Vanco Iv Per Pharmacy) VANCOMYCIN PER PHARMACY PER PROTOCOL XX ; Start 07/22/18 at 10:30 Multivit/Ca Carb/ B Cmplx/FA/Prenat (Lalita-Abigail) 1 tab DAILY PO Last administered on 07/25/18at 08:11; Admin Dose 1 TAB; Start 07/23/18 at 09:00 Phenylephrine HCl 250 ml @ 75 mls/hr TITRATE IV ; Start 07/22/18 at 12:00 Acetaminophen (Tylenol Supp) 650 mg Q4H PRN [place] TEMP > 37C; Start 07/22/18 at 12:30 Acetaminophen (Tylenol Liquid) 650 mg Q4H PRN PO TEMP > 37C; Start 07/22/18 at 12:30 Meperidine HCl (Demerol) 12.5 mg Q4H PRN IV POST OPERATIVE SHIVERING; Start 07/22/18 at 12:30 Meperidine HCl (Demerol) 25 mg Q4H PRN IV POST OPERATIVE SHIVERING; Start 07/22/18 at 12:30 Eye Lubricant (Akwa Oint) 1 applic Q6 BOTH EYES Last administered on 07/26/18 05:47; Admin Dose 1 APPLIC; Start 07/22/18 at 18:00 Eye Lubricant (Artificial Tears Oph) 2 drop Q6 BOTH EYES Last administered on 07/26/18 05:47; Admin Dose 2 DROP; Start 07/22/18 at 18:00 Norepinephrine 250 ml @ 1.875 mls/ hr TITRATE IV Last administered on 07/23/18 01:01; Admin Dose 22.5 MLS/HR; Start 07/22/18 at 13:00 Docusate Sodium (Colace Liquid Cup) 100 mg BID NGT Last administered on 07/25/18 20:56; Admin Dose 100 MG; Start 07/22/18 at 22:00 Midazolam HCl 50 ml @ 1 mls/hr TITRATE IV Last administered on 5/24/19at 05:18; Admin Dose 3 MLS/HR; Start 07/23/18 at 02:00 Famotidine (Pepcid) 20 mg DAILY NGT Last administered on 07/25/18at 08:11; Admin Dose 20 MG; Start 07/23/18 at 12:00 Diagnostic Test (Pha) (Accu-Chek) 1 ea Q4 XX Last administered on 07/26/18at 05:00; Admin Dose 1 EA; Start 07/23/18 at 13:00 Albumin Human 100 ml @ 100 mls/hr WITH DIALYSIS PRN IV SBP <90 DURING DIALYSIS Last administered on 07/23/18at 18:07; Admin Dose 100 MLS/HR; Start 07/23/18 at 18:00 Miscellaneous Information (* Miscellaneous Pharmacy Order) Treatment of Hypoglycemia: 1.BG 51... Per protocol XX ; Start 07/24/18 at 02:00 Miscellaneous Information 1 ea NOTE XX ; Start 07/24/18 at 02:30 Glucose (Glutose) 15 gm Q15M PRN PO DECREASED GLUCOSE; Start 07/24/18 at 02:30 Glucose (Glutose) 22.5 gm Q15M PRN PO DECREASED GLUCOSE; Start 07/24/18 at 02:30 Dextrose (D50w Syringe) 25 ml Q15M PRN IV DECREASED GLUCOSE Last administered on 07/25/18at 23:07; Admin Dose 25 ML; Start 07/24/18 at 02:30 Dextrose (D50w Syringe) 50 ml Q15M PRN IV DECREASED GLUCOSE; Start 07/24/18 at 02:30 Glucagon (Glucagen) 1 mg Q15M PRN IM DECREASED GLUCOSE; Start 07/24/18 at 02:30 Glucose (Glutose) 15 gm Q15M PRN BUCCAL DECREASED GLUCOSE; Start 07/24/18 at 02:30 Cefepime HCl 50 ml @ 100 mls/hr DAILY IVPB Last administered on 07/25/18at 08:11; Admin Dose 100 MLS/HR; Start 07/24/18 at 12:30 Metronidazole (Flagyl) 500 mg Q8 PO Last administered on 07/26/18at 05:47; Admin Dose 500 MG; Start 07/24/18 at 13:00 Total Parenteral Nutrition 1,000 ml @ 40 mls/hr Q24H IV ; Start 07/24/18 at 12:00; Status UNV Calcium Acetate (Phoslo) 1,334 mg TID NGT Last administered on 07/25/18at 20:57; Admin Dose 1,334 MG; Start 07/25/18 at 13:00 Dextrose/Sodium Chloride 1,000 ml @ 40 mls/hr Q24H IV Last administered on at 23:20; Admin Dose 40 MLS/HR; Start 07/25/18 at 23:30 Hydrocortisone (Solu-Cortef) 200 mg Q8 IV Last administered on 07/26/18at 06:03; Admin Dose 200 MG; Start 07/26/18 at 06:00 AYSE CAMARGO July 26, 2018 07:54
--- NOTE | 2018-07-26 08:59 | CONS ---
Assessment/Plan Assessment/Plan Hospital Course (Demo Recall) 1. Status post code blue, unresponsive, could be secondary to cardiac in origin/rule out embolic infarct to the brain/hypoglycemia/septic shock. 2. Septic shock with history of endocarditis, source questionable. This patient had a pacemaker in the chest and also has AV graft. bld cx pending so far, [facility]. Severe anion gap acidosis secondary to hypovolemia/ septic shock with lactic acidosis, resolved 4 Respiratory failure s/p intubation 4. End-stage renal disease on hemodialysis secondary to right kidney atrophy, chronic tubulointerstitial nephritis. 5. Elevated troponin, likely secondary to acute coronary syndrome. non STEMI 6. Chronic atrial fibrillation. 7. Cardiomyopathy, status post pacemaker. 8. Chronic thrombocytopenia. with acute plt drop 9. Chronic megaloblastic anemia. 10. Abnormal LFTs with elevated bilirubin level.? hemolysis 11. Leukocytosis. 12. Anemia, megaloblastic with acute drop r/o hemolysis 13. Hypokalemia 14. hx retinitis pigmentosa with blindness 15. Hypocalcemia Assessment/Plan (Daily) -c/w HD -check K after HD -monitor H and H Consultation Date/Type/Reason Admit Date/Time July 22, 2018 at 09:09 Initial Consult Date 07/23/18 Type of Consult nephrology Requesting Provider: TRINITY ELENA Date/Time of Note DATE: 07/26/18 TIME: 08:59 24 HR Interval Summary Free Text/Dictation orally intubated Subjective hx not possible: pt non-verbal, pt critical status Constitutional: requiring O2 Exam/Review of Systems Exam Vitals Vital Signs Date Temp Pulse Resp B/P (MAP) Pulse Ox O2 O2 Flow FiO2 Time Delivery Rate 07/26/18 30 08:00 07/26/18 61 14 130/75 100 Mechanical 07:00 (93) Ventilator 07/26/18 96.0 04:00 07/22/18 2.0 10:00 Intake and Output 07/25/18 07/25/18 07/26/18 1515:00 23:00 07:00 IntakeIntake Total 182 ml 806 ml 420 ml BalanceBalance 182 ml 806 ml 420 ml Exam orally intubated Constitutional: frail Head: normocephalic Neck: supple Respiratory: diminished breath sounds Cardiovascular: other (paced) Gastrointestinal: soft, other (NG tube) Musculoskeletal: swelling (right side edema) Results Result Diagram: 07/26/18 0514 07/26/18 0502 Results 24hrs Laboratory Tests Test 07/25/18 11:17 07/25/18 13:37 07/25/18 14:21 07/25/18 17:12 Lactic Acid Level 18.4 *H Bedside Glucose 63 L 184 86 Test 07/25/18 20:55 07/25/18 23:04 07/25/18 23:25 07/25/18 23:40 Bedside Glucose 70 60 L 197 142 Test 07/26/18 01:21 07/26/18 04:32 07/26/18 04:51 07/26/18 05:02 Bedside Glucose 135 154 Random Vancomycin 12.4 Level Sodium Level 136 Potassium Level 3.0 L Chloride Level 87 L Carbon Dioxide 18 L Level Anion Gap 31 H Blood Urea 22 H Nitrogen Creatinine 2.07 H Est Glomerular 29 L Filtrat Rate mL/min Glucose Level 130 Calcium Level 7.6 L Total Bilirubin 11.8 H Direct Bilirubin 9.80 H Indirect Bilirubin 2.0 H Aspartate Amino Transf (AST/SGOT) Alanine 1271 H Aminotransferase ( ALT/SGPT) Alkaline 107 Phosphatase Total Protein 6.6 Albumin 3.9 Globulin 2.70 Albumin/Globulin 1.44 Ratio Lipase 1391 H Test 07/26/18 05:14 07/26/18 05:28 07/26/18 08:30 White Blood Count 11.9 H Red Blood Count 3.24 L Hemoglobin 10.6 L Hematocrit 32.5 L Mean Corpuscular 100.3 Volume Mean Corpuscular 32.7 Hemoglobin Mean Corpuscular 32.6 Hemoglobin Concent Red Cell 26.5 H Distribution Width Platelet Count 12 #*L Mean Platelet Volume Immature 1.800 H Granulocytes % Neutrophils % Segmented 52 Neutrophils % (Manual) Band Neutrophils % 35 H (Manual) Lymphocytes % Lymphocytes % 6 L (Manual) Monocytes % Monocytes % 7 (Manual) Eosinophils % Basophils % Nucleated Red 11 H Blood Cells % Immature 0.210 H Granulocytes # Neutrophils # Neutrophils # 6.7 (Manual) Band Neutrophils # 4.1 H Lymphocytes 0.7 L (Manual) Lymphocytes # Monocytes # Monocytes # 0.8 (Manual) Eosinophils # Basophils # Nucleated Red Blood Cells # Platelet Estimate SIG DECREASED Giant Platelets 1 H Polychromasia 1+ Poikilocytosis 3+ Anisocytosis 2+ Microcytosis 1+ Macrocytosis 2+ Ovalocytes 1+ Prothrombin Time 36.6 #H Prothrombin Time 2.9 Ratio INR International 3.69 Normalized Ratio Activated 44.[address] Time Fibrinogen 214.0 # Bedside Glucose 128 Medications Medication Current Medications Lorazepam (Ativan) 0.5 mg Q6H PRN IV .ANXIETY; Start 07/22/18 at 10:30 Ondansetron HCl (Zofran Inj) 4 mg Q6H PRN IV NAUSEA/VOMITING; Start 07/22/18 at 10:30 Aspirin (Aspirin) 81 mg DAILY PO ; Start 07/23/18 at 09:00; Status Hold Vancomycin HCl (Vanco Iv Per Pharmacy) VANCOMYCIN PER PHARMACY PER PROTOCOL XX ; Start 07/22/18 at 10:30 Multivit/Ca Carb/ B Cmplx/FA/Prenat (Lalita-Abigail) 1 tab DAILY PO Last administered on 07/25/18at 08:11; Admin Dose 1 TAB; Start 07/23/18 at 09:00 Phenylephrine HCl 250 ml @ 75 mls/hr TITRATE IV ; Start 07/22/18 at 12:00 Acetaminophen (Tylenol Supp) 650 mg Q4H PRN [place] TEMP > 37C; Start 07/22/18 at 12:30 Acetaminophen (Tylenol Liquid) 650 mg Q4H PRN PO TEMP > 37C; Start 07/22/18 at 12:30 Meperidine HCl (Demerol) 12.5 mg Q4H PRN IV POST OPERATIVE SHIVERING; Start 07/22/18 at 12:30 Meperidine HCl (Demerol) 25 mg Q4H PRN IV POST OPERATIVE SHIVERING; Start 07/22/18 at 12:30 Eye Lubricant (Akwa Oint) 1 applic Q6 BOTH EYES Last administered on 07/26/18at 05:47; Admin Dose 1 APPLIC; Start 07/22/18 at 18:00 Eye Lubricant (Artificial Tears Oph) 2 drop Q6 BOTH EYES Last administered on 07/26/18at 05:47; Admin Dose 2 DROP; Start 07/22/18 at 18:00 Norepinephrine 250 ml @ 1.875 mls/ hr TITRATE IV Last administered on 07/23/18a t 01:01; Admin Dose 22.5 MLS/HR; Start 07/22/18 at 13:00 Docusate Sodium (Colace Liquid Cup) 100 mg BID NGT Last administered on 07/25/18at 20:56; Admin Dose 100 MG; Start 07/22/18 at 22:00 Midazolam HCl 50 ml @ 1 mls/hr TITRATE IV Last administered on 07/25/18 05:18; Admin Dose 3 MLS/HR; Start 07/23/18 at 02:00 Famotidine (Pepcid) 20 mg DAILY NGT Last administered on 07/25/18at 08:11; Admin Dose 20 MG; Start 07/23/18 at 12:00 Diagnostic Test (Pha) (Accu-Chek) 1 ea Q4 XX Last administered on 07/26/18at 05:00; Admin Dose 1 EA; Start 07/23/18 at 13:00 Albumin Human 100 ml @ 100 mls/hr WITH DIALYSIS PRN IV SBP <90 DURING DIALYSIS Last administered on 07/23/18at 18:07; Admin Dose 100 MLS/HR; Start 07/23/18 at 18:00 Miscellaneous Information (* Miscellaneous Pharmacy Order) Treatment of Hypo glycemia: 1.BG 51... Per protocol XX ; Start 07/24/18 at 02:00 Miscellaneous Information 1 ea NOTE XX ; Start 07/24/18 at 02:30 Glucose (Glutose) 15 gm Q15M PRN PO DECREASED GLUCOSE; Start 07/24/18 at 02:30 Glucose (Glutose) 22.5 gm Q15M PRN PO DECREASED GLUCOSE; Start 07/24/18 at 02:30 Dextrose (D50w Syringe) 25 ml Q15M PRN IV DECREASED GLUCOSE Last administered on 07/25/18at 23:07; Admin Dose 25 ML; Start 07/24/18 at 02:30 Dextrose (D50w Syringe) 50 ml Q15M PRN IV DECREASED GLUCOSE; Start 07/24/18 at 02:30 Glucagon (Glucagen) 1 mg Q15M PRN IM DECREASED GLUCOSE; Start 07/24/18 at 02:30 Glucose (Glutose) 15 gm Q15M PRN BUCCAL DECREASED GLUCOSE; Start 07/24/18 at 02:30 Cefepime HCl 50 ml @ 100 mls/hr DAILY IVPB Last administered on 07/25/18 08:11; Admin Dose 100 MLS/HR; Start 07/24/18 at 12:30 Metronidazole (Flagyl) 500 mg Q8 PO Last administered on 07/26/18at 05:47; Admin Dose 500 MG; Start 07/24/18 at 13:00 Total Parenteral Nutrition 1,000 ml @ 40 mls/hr Q24H IV ; Start 07/24/18 at 12:00; Status UNV Calcium Acetate (Phoslo) 1,334 mg TID NGT Last administered on 07/25/18at 20:57; Admin Dose 1,334 MG; Start 07/25/18 at 13:00 Dextrose/Sodium Chloride 1,000 ml @ 40 mls/hr Q24H IV Last administered on 07/25/18at 23:20; Admin Dose 40 MLS/HR; Start 07/25/18 at 23:30 Hydrocortisone (Solu-Cortef) 200 mg Q8 IV Last administered on 07/26/18 06:03; Admin Dose 200 MG; Start 07/26/18 at 06:00 Vancomycin/Sodium Chloride 250 ml @ 125 mls/hr ONCE IVPB ; Start 07/26/18 at 10:30; Stop 07/26/18 at 20:00 KIM INGRAM July 26, 2018 08:59
[2018-07-26] MEDS: DOCUSATE SODIUM 10 MG/ML (10ML CUP) NGT SCH ×2 (09:00→21:19)
[2018-07-26] MEDS: CALCIUM ACETATE 667 MG CAP NGT SCH ×3 (09:15→21:19)
[2018-07-26] MEDS: MULTIVIT/CA CARB/B CMPLX/FA TAB PO SCH (09:15)
[2018-07-26] MEDS: FAMOTIDINE 20 MG TAB NGT SCH (09:15)
--- NOTE | 2018-07-26 09:34 | CONS ---
Assessment/Plan Assessment/Plan Hospital Course 27 yo F with multiple significant comorbidities who was admitted to ICU following a cardiac arrest. TTM was deferred d/t her improvement in neurologic status. CTH on 07/24 was notable for acute BL cerebellar infarcts... for which neurology is consulted. Her labs suggest DIC, which is certainly the underlying precipitant. Repeat CTH is stable. MRI brain is presently contraindicated d/t pacemaker Echo is unrevealing. LDL 20; haptoglobin <8 On 07/26, the pt was noted to have a worsening mental status. A STAT HCT was notable for hemorrhagic transformation of the cerebellar infarcts P: Hold all anticoagulation/antiplatelet therapy Maintain SBP < 160 CTA H/N to evaluate posterior circulation when medically able Consider complete hypercoagulability panel Cont medical management per primary, DIC management per hematology Cont to hold sedating medications where possible PT/OT/ST when able Will follow clinically, to recommend neurologic studies, as necessary Consultation Date/Type/Reason Admit Date/Time July 22, 2018 at 09:09 Type of Consult Neurology Reason for Consultation acute CVA Requesting Provider: TRINITY ELENA Date/Time of Note DATE: 07/26/18 TIME: 09:34 24 HR Interval Summary Free Text/Dictation Continues critical care. Pt reportedly less responsive today per family and RN. Sedation off since yesterday. S/p STAT repeat HCT today. Subjective hx not possible: pt non-verbal, pt critical Exam Vital Signs Vitals Vital Signs Date Temp Pulse Resp B/P (MAP) Pulse Ox O2 O2 Flow FiO2 Time Delivery Rate 07/26/18 62 09:10 07/26/18 129/80 Mechanical 09:01 (96) Ventilator 07/26/18 30 08:00 07/26/18 14 100 07:00 07/26/18 96.0 04:00 07/22/18 2.0 10:00 Intake and Output 07/25/18 07/25/18 07/26/18 1515:00 23:00 07:00 IntakeIntake Total 182 ml 806 ml 420 ml BalanceBalance 182 ml 806 ml 420 ml Exam PE: Gen Appearance: No Apparent Distress HEENT: Intubated Cardiovascular: Regular rate Abdomen: Soft Extremities: Dry NE: The patient was comatose. Cranial nerve examination was limited by mental status. Pupils were equal and sluggishly reactive to light. There was no afferent pupillary defect. Fundus copic examination was limited. Face was grossly symmetric, w/ present corneal and cough reflexes. Tone was normal. Muscle bulk was normal. I did not see fasciculations. The patient did not withdraw her extremities to noxious stimuli. Coordination and gait testing was limited by mental status. Arm and leg reflexes were within normal limits and symmetric. Coe's sign was absent. Plantar responses were flexor. LUCIA CARRILLO NP July 26, 2018 09:34
--- NOTE | 2018-07-26 09:53 | CONS ---
Assessment/Plan Assessment/Plan Assessment/Plan (Daily) IMPRESSION: 1. Sepsis, multifocal pneumonia. 2. Vent dependent respiratory failure. 3. End-stage renal disease on dialysis. 4. Severe thrombocytopenia. 5. Increased lipase, but there is no evidence of pancreatitis on the CAT scan. Symptom analysis cannot be done regarding the abdominal pain. 6. Elevated troponin. 7. Paroxysmal atrial fibrillation. 8. Status post pacemaker AICD. 9. Anemia, megaloblastic. 10. Malnutrition. 11. History of methicillin-susceptible Staphylococcus aureus bacteremia. There was no evidence of any vegetation on ROSANNE and the patient's ejection fraction is 45%. 12. Coagulopathy. 13. Jaundice. 14. Thrombocytopenia improved Plan continue tube feed via NG tube Continue all supportive care Continue antibiotics as per the ID Monitor LFT and PT PTT Consultation Date/Type/Reason Admit Date/Time July 22, 2018 at 09:09 Initial Consult Date 07/23/18 Type of Consult GI Requesting Provider: TRINITY ELENA Date/Time of Note DATE: 07/26/18 TIME: 09:50 24 HR Interval Summary Free Text/Dictation discuss with family at bedside Subjective hx not possible: pt non-verbal Exam/Review of Systems Exam Vitals Vital Signs Date Temp Pulse Resp B/P (MAP) Pulse Ox O2 O2 Flow FiO2 Time Delivery Rate 07/26/18 62 09:10 07/26/18 129/80 Mechanical 09:01 (96) Ventilator 07/26/18 30 08:00 07/26/18 14 100 07:00 07/26/18 96.0 04:00 07/22/18 2.0 10:00 Intake and Output 07/25/18 07/25/18 07/26/18 1515:00 23:00 07:00 IntakeIntake Total 182 ml 806 ml 420 ml BalanceBalance 182 ml 806 ml 420 ml Constitutional: non-verbal Psych: confusion Head: normocephalic, atraumatic Eyes: nl conjunctiva, nl lids ENMT: nl external ears & nose, nl lips & teeth, nl nasal mucosa & septum Neck: supple, non-tender Respiratory: clear to auscultation, normal air movement Cardiovascular: regular rate and rhythm, nl pulses Gastrointestinal: soft, non-tender, bowel sounds Results Result Diagram: 07/26/18 0514 07/26/18 0502 Results 24hrs Laboratory Tests Test 07/25/18 11:17 07/25/18 13:37 07/25/18 14:21 07/25/18 17:12 Lactic Acid Level 18.4 *H Bedside Glucose 63 L 184 86 Test 07/25/18 20:55 07/25/18 23:04 07/25/18 23:25 07/25/18 23:40 Bedside Glucose 70 60 L 197 142 Test 07/26/18 01:21 07/26/18 04:32 07/26/18 04:51 07/26/18 05:02 Bedside Glucose 135 154 Random Vancomycin 12.4 Level Sodium Level 136 Potassium Level 3.0 L Chloride Level 87 L Carbon Dioxide 18 L Level Anion Gap 31 H Blood Urea 22 H Nitrogen Creatinine 2.07 H Est Glomerular 29 L Filtrat Rate mL/min Glucose Level 130 Calcium Level 7.6 L Total Bilirubin 11.8 H Direct Bilirubin 9.80 H Indirect Bilirubin 2.0 H Aspartate Amino Transf (AST/SGOT) Alanine 1271 H Aminotransferase ( ALT/SGPT) Alkaline 107 Phosphatase Total Protein 6.6 Albumin 3.9 Globulin 2.70 Albumin/Globulin 1.44 Ratio Lipase 1391 H Test 07/26/18 05:14 07/26/18 05:28 07/26/18 08:30 White Blood Count 11.9 H Red Blood Count 3.24 L Hemoglobin 10.6 L Hematocrit 32.5 L Mean Corpuscular 100.3 Volume Mean Corpuscular 32.7 Hemoglobin Mean Corpuscular 32.6 Hemoglobin Concent Red Cell 26.5 H Distribution Width Platelet Count 12 #*L Mean Platelet Volume Immature 1.800 H Granulocytes % Neutrophils % Segmented 52 Neutrophils % (Manual) Band Neutrophils % 35 H (Manual) Lymphocytes % Lymphocytes % 6 L (Manual) Monocytes % Monocytes % 7 (Manual) Eosinophils % Basophils % Nucleated Red 11 H Blood Cells % Immature 0.210 H Granulocytes # Neutrophils # Neutrophils # 6.7 (Manual) Band Neutrophils # 4.1 H Lymphocytes 0.7 L (Manual) Lymphocytes # Monocytes # Monocytes # 0.8 (Manual) Eosinophils # Basophils # Nucleated Red Blood Cells # Platelet Estimate SIG DECREASED Giant Platelets 1 H Polychromasia 1+ Poikilocytosis 3+ Anisocytosis 2+ Microcytosis 1+ Macrocytosis 2+ Ovalocytes 1+ Prothrombin Time 36.6 #H Prothrombin Time 2.9 Ratio INR International 3.69 Normalized Ratio Activated 44.[address] Time Fibrinogen 214.0 # Bedside Glucose 128 Medications Medication Current Medications Lorazepam (Ativan) 0.5 mg Q6H PRN IV .ANXIETY; Start 07/22/18 at 10:30 Ondansetron HCl (Zofran Inj) 4 mg Q6H PRN IV NAUSEA/VOMITING; Start 07/22/18 at 10:30 Aspirin (Aspirin) 81 mg DAILY PO ; Start 07/23/18 at 09:00; Status Hold Vancomycin HCl (Vanco Iv Per Pharmacy) VANCOMYCIN PER PHARMACY PER PROTOCOL XX ; Start 07/22/18 at 10:30 Multivit/Ca Carb/ B Cmplx/FA/Prenat (Lalita-Abigail) 1 tab DAILY PO Last administer ed on 07/26/18at 09:15; Admin Dose 1 TAB; Start 07/23/18 at 09:00 Phenylephrine HCl 250 ml @ 75 mls/hr TITRATE IV ; Start 07/22/18 at 12:00 Acetaminophen (Tylenol Supp) 650 mg Q4H PRN [place] TEMP > 37C; Start 07/22/18 at 12:30 Acetaminophen (Tylenol Liquid) 650 mg Q4H PRN PO TEMP > 37C; Start 07/22/18 at 12:30 Meperidine HCl (Demerol) 12.5 mg Q4H PRN IV POST OPERATIVE SHIVERING; Start 07/22/18 at 12:30 Meperidine HCl (Demerol) 25 mg Q4H PRN IV POST OPERATIVE SHIVERING; Start 07/22/18 at 12:30 Eye Lubricant (Akwa Oint) 1 applic Q6 BOTH EYES Last administered on 07/26/18at 05:47; Admin Dose 1 APPLIC; Start 07/22/18 at 18:00 Eye Lubricant (Artificial Tears Oph) 2 drop Q6 BOTH EYES Last administered on 07/26/18at 05:47; Admin Dose 2 DROP; Start 07/22/18 at 18:00 Norepinephrine 250 ml @ 1.875 mls/ hr TITRATE IV Last administered on 07/23/18at 01:01; Admin Dose 22.5 MLS/HR; Start 07/22/18 at 13:00 Docusate Sodium (Colace Liquid Cup) 100 mg BID NGT Last administered on 07/25/18at 20:56; Admin Dose 100 MG; Start 07/22/18 at 22:00 Midazolam HCl 50 ml @ 1 mls/hr TITRATE IV Last administered on 07/25/18 05:18; Admin Dose 3 MLS/HR; Start 07/23/18 at 02:00 Famotidine (Pepcid) 20 mg DAILY NGT Last administered on 07/26/18 09:15; Admin Dose 20 MG; Start 07/23/18 at 12:00 Diagnostic Test (Pha) (Accu-Chek) 1 ea Q4 XX Last administered on 07/26/18 09:15; Admin Dose 1 EA; Start 07/23/18 at 13:00 Albumin Human 100 ml @ 100 mls/hr WITH DIALYSIS PRN IV SBP <90 DURING DIALYSIS Last administered on 07/23/18 18:07; Admin Dose 100 MLS/HR; Start 07/23/18 at 18:00 Miscellaneous Information (* Miscellaneous Pharmacy Order) Treatment of Hypoglycemia: 1.BG 51... Per protocol XX ; Start 07/24/18 at 02:00 Miscellaneous Information 1 ea NOTE XX ; Start 07/24/18 at 02:30 Glucose (Glutose) 15 gm Q15M PRN PO DECREASED GLUCOSE; Start 07/24/18 at 02:30 Glucose (Glutose) 22.5 gm Q15M PRN PO DECREASED GLUCOSE; Start 07/24/18 at 02:30 Dextrose (D50w Syringe) 25 ml Q15M PRN IV DECREASED GLUCOSE Last administered on 07/25/18 23:07; Admin Dose 25 ML; Start 07/24/18 at 02:30 Dextrose (D50w Syringe) 50 ml Q15M PRN IV DECREASED GLUCOSE; Start 07/24/18 at 02:30 Glucagon (Glucagen) 1 mg Q15M PRN IM DECREASED GLUCOSE; Start 07/24/18 at 02:30 Glucose (Glutose) 15 gm Q15M PRN BUCCAL DECREASED GLUCOSE; Start 07/24/18 at 02:30 Cefepime HCl 50 ml @ 100 mls/hr DAILY IVPB Last administered on 07/25/18at 08:11; Admin Dose 100 MLS/HR; Start 07/24/18 at 12:30 Metronidazole (Flagyl) 500 mg Q8 PO Last administered on 5/25/19at 05:47; Admin Dose 500 MG; Start 07/24/18 at 13:00 Total Parenteral Nutrition 1,000 ml @ 40 mls/hr Q24H IV ; Start 07/24/18 at 12:00; Status UNV Calcium Acetate (Phoslo) 1,334 mg TID NGT Last administered on 07/26/18at 09:15; Admin Dose 1,334 MG; Start 07/25/18 at 13:00 Dextrose/Sodium Chloride 1,000 ml @ 40 mls/hr Q24H IV Last administered on 07/25/18at 23:20; Admin Dose 40 MLS/HR; Start 07/25/18 at 23:30 Hydrocortisone (Solu-Cortef) 200 mg Q8 IV Last administered on 07/26/18at 06:03; Admin Dose 200 MG; Start 07/26/18 at 06:00 Vancomycin/Sodium Chloride 250 ml @ 125 mls/hr ONCE IVPB ; Start 07/26/18 at 10:30; Stop 07/26/18 at 20:00 SIMONE RICHARDS MD July 26, 2018 09:53
[2018-07-26] MEDS ORDERED: VANCOMYCIN 750 MG (PMX) 250 ML IVPB SCH (10:30)
--- NOTE | 2018-07-26 11:22 | PN ---
Date/Time of Note Date/Time of Note DATE: 07/26/18 TIME: 11:08 Assessment/Plan VTE Prophylaxis Risk score (from Ns)>0 risk: 10 SCD applied (from [facility] [place]): Yes Pharmacological prophylaxis: NA/contraindicated Pharm contraindication: blood coag disorder Assessment/Plan Hospital Course 27-year-old woman with history of end-stage kidney disease hemodialysis dependent was brought in by EMS from home for confusion and altered mental status and hypoglycemia . She had been recently discharged from outside hospital after being managed for MSSA bacteremia, no clear source has been found. She was home for 3 days before she was brought here. She suffered cardiac arrest in the emergency room after she was treated for hypoglycemia , she is currently managed as follows: 1. Status post cardiac arrest with return of spontaneous circulation Likely secondary to metabolic causes from missed hemodialysis 2. Acute respiratory failure: Remains ventilator dependent 3. Severe Sepsis with septic shock and severe lactic acidosis and now multiorgan failure -multifactorial, possible PNA / pancreatitis -Patient sister was told that there is no infection of the pacemaker leads at outside hospital -remains on minimal pressor support -ID is following, patient on vancomycin Flagyl and cefepime 4. Acute encephalopathy -CT brain does show bilateral cerebral infarcts likely secondary to DIC -Sepsis also contributing 5. Fluid overload secondary to end-stage renal disease and CHF -Echo does show an EF of 45% with diastolic heart failure -Continue HD 6. Acute Pancreatitis -Lipase now trending down 7. NSTEMI type II secondary to demand -Cardiology following 8. LLL pneumonia -recent hospitalization with reports of MSSA bacteremia, continue antibiotics 9. ESRD on HD with severe metabolic acidosis -According to patient's sister patient was started on dialysis 4 years ago, etiology of renal failure is unclear -Follow-up on lupus work-up -HD per renal 10. Paroxysmal Afib : rate controlled 11. S/p Pacemaker / AICD -Family was told that pacer leads were not infected at outside hospital 12. DIC with CVA -Treat underlying cause, monitor -Hematology following 13. History of debility and congenital defect 14. 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 s/p transfusion 15. Hx of Mssa bacteremia -ROSANNE was done without evidence of endocarditis -subsequent blood cultures have been negative -no concern for vegetations on TTE here 16. Jaundice with transaminitis -Patient would likely shock liver -GI following, no clear biliary disease on CT abdomen and ultrasound abdomen 17.. GI bleeding : gopal / hematochezia -GI following, monitor 18. Acute colitis -Noted on CT, continue antibiotic 19. Decubitus ulcers -Wound care Prophylaxis: SCDs Result Diagram: 07/26/18 0514 07/26/18 0502 Results 24hrs Laboratory Tests Test 07/25/18 11:17 07/25/18 13:37 07/25/18 14:21 07/25/18 17:12 Lactic Acid Level 18.4 *H Bedside Glucose 63 L 184 86 Test 07/25/18 20:55 07/25/18 23:04 07/25/18 23:25 07/25/18 23:40 Bedside Glucose 70 60 L 197 142 Test 07/26/18 01:21 07/26/18 04:32 07/26/18 04:51 07/26/18 05:02 Bedside Glucose 135 154 Random Vancomycin 12.4 Level Sodium Level 136 Potassium Level 3.0 L Chloride Level 87 L Carbon Dioxide 18 L Level Anion Gap 31 H Blood Urea 22 H Nitrogen Creatinine 2.07 H Est Glomerular 29 L Filtrat Rate mL/min Glucose Level 130 Calcium Level 7.6 L Total Bilirubin 11.8 H Direct Bilirubin 9.80 H Indirect Bilirubin 2.0 H Aspartate Amino Transf (AST/SGOT) Alanine 1271 H Aminotransferase ( ALT/SGPT) Alkaline 107 Phosphatase Total Protein 6.6 Albumin 3.9 Globulin 2.70 Albumin/Globulin 1.44 Ratio Lipase 1391 H Test 07/26/18 05:14 07/26/18 05:28 07/26/18 08:30 White Blood Count 11.9 H Red Blood Count 3.24 L Hemoglobin 10.6 L Hematocrit 32.5 L Mean Corpuscular 100.3 Volume Mean Corpuscular 32.7 Hemoglobin Mean Corpuscular 32.6 Hemoglobin Concent Red Cell 26.5 H Distribution Width Platelet Count 12 #*L Mean Platelet Volume Immature 1.800 H Granulocytes % Neutrophils % Segmented 52 Neutrophils % (Manual) Band Neutrophils % 35 H (Manual) Lymphocytes % Lymphocytes % 6 L (Manual) Monocytes % Monocytes % 7 (Manual) Eosinophils % Basophils % Nucleated Red 11 H Blood Cells % Immature 0.210 H Granulocytes # Neutrophils # Neutrophils # 6.7 (Manual) Band Neutrophils # 4.1 H Lymphocytes 0.7 L (Manual) Lymphocytes # Monocytes # Monocytes # 0.8 (Manual) Eosinophils # Basophils # Nucleated Red Blood Cells # Platelet Estimate SIG DECREASED Giant Platelets 1 H Polychromasia 1+ Poikilocytosis 3+ Anisocytosis 2+ Microcytosis 1+ Macrocytosis 2+ Ovalocytes 1+ Prothrombin Time 36.6 #H Prothrombin Time 2.9 Ratio INR International 3.69 Normalized Ratio Activated 44.[address] Time Fibrinogen 214.0 # Bedside Glucose 128 Subjective 24 Hr Interval Summary Subjective hx not possible: pt non-verbal Exam/Review of Systems Exam Vitals Vital Signs Date Temp Pulse Resp B/P (MAP) Pulse Ox O2 O2 Flow FiO2 Time Delivery Rate 07/26/18 60 10:25 07/26/18 129/80 Mechanical 09:01 (96) Ventilator 07/26/18 30 08:00 07/26/18 14 100 07:00 07/26/18 96.0 04:00 07/22/18 2.0 10:00 Intake and Output 07/25/18 07/25/18 07/26/18 1515:00 23:00 07:00 IntakeIntake Total 182 ml 806 ml 420 ml BalanceBalance 182 ml 806 ml 420 ml Constitutional: non-verbal ENMT: intubated Respiratory: clear to auscultation Cardiovascular: regular rate and rhythm Gastrointestinal: soft; No distended Musculoskeletal: nl extremities to inspection Results Results 24hrs Laboratory Tests Test 07/25/18 11:17 07/25/18 13:37 07/25/18 14:21 07/25/18 17:12 Lactic Acid Level 18.4 *H Bedside Glucose 63 L 184 86 Test 07/25/18 20:55 07/25/18 23:04 07/25/18 23:25 07/25/18 23:40 Bedside Glucose 70 60 L 197 142 Test 07/26/18 01:21 07/26/18 04:32 07/26/18 04:51 07/26/18 05:02 Bedside Glucose 135 154 Random Vancomycin 12.4 Level Sodium Level 136 Potassium Level 3.0 L Chloride Level 87 L Carbon Dioxide 18 L Level Anion Gap 31 H Blood Urea 22 H Nitrogen Creatinine 2.07 H Est Glomerular 29 L Filtrat Rate mL/min Glucose Level 130 Calcium Level 7.6 L Total Bilirubin 11.8 H Direct Bilirubin 9.80 H Indirect Bilirubin 2.0 H Aspartate Amino Transf (AST/SGOT) Alanine 1271 H Aminotransferase ( ALT/SGPT) Alkaline 107 Phosphatase Total Protein 6.6 Albumin 3.9 Globulin 2.70 Albumin/Globulin 1.44 Ratio Lipase 1391 H Test 07/26/18 05:14 07/26/18 05:28 07/26/18 08:30 White Blood Count 11.9 H Red Blood Count 3.24 L Hemoglobin 10.6 L Hematocrit 32.5 L Mean Corpuscular 100.3 Volume Mean Corpuscular 32.7 Hemoglobin Mean Corpuscular 32.6 Hemoglobin Concent Red Cell 26.5 H Distribution Width Platelet Count 12 #*L Mean Platelet Volume Immature 1.800 H Granulocytes % Neutrophils % Segmented 52 Neutrophils % (Manual) Band Neutrophils % 35 H (Manual) Lymphocytes % Lymphocytes % 6 L (Manual) Monocytes % Monocytes % 7 (Manual) Eosinophils % Basophils % Nucleated Red 11 H Blood Cells % Immature 0.210 H Granulocytes # Neutrophils # Neutrophils # 6.7 (Manual) Band Neutrophils # 4.1 H Lymphocytes 0.7 L (Manual) Lymphocytes # Monocytes # Monocytes # 0.8 (Manual) Eosinophils # Basophils # Nucleated Red Blood Cells # Platelet Estimate SIG DECREASED Giant Platelets 1 H Polychromasia 1+ Poikilocytosis 3+ Anisocytosis 2+ Microcytosis 1+ Macrocytosis 2+ Ovalocytes 1+ Prothrombin Time 36.6 #H Prothrombin Time 2.9 Ratio INR International 3.69 Normalized Ratio Activated 44.[address] Time Fibrinogen 214.0 # Bedside Glucose 128 Medications Medication Current Medications Lorazepam (Ativan) 0.5 mg Q6H PRN IV .ANXIETY; Start 07/22/18 at 10:30 Ondansetron HCl (Zofran Inj) 4 mg Q6H PRN IV NAUSEA/VOMITING; Start 07/22/18 at 10:30 Aspirin (Aspirin) 81 mg DAILY PO ; Start 07/23/18 at 09:00; Status Hold Vancomycin HCl (Vanco Iv Per Pharmacy) VANCOMYCIN PER PHARMACY PER PROTOCOL XX ; Start 07/22/18 at 10:30 Multivit/Ca Carb/ B Cmplx/FA/Prenat ([facility]-Abigail) 1 tab DAILY PO Last administer ed on 07/26/18at 09:15; Admin Dose 1 TAB; Start 07/23/18 at 09:00 Phenylephrine HCl 250 ml @ 75 mls/hr TITRATE IV ; Start 07/22/18 at 12:00 Acetaminophen (Tylenol Supp) 650 mg Q4H PRN [place] TEMP > 37C; Start 07/22/18 at 12:30 Acetaminophen (Tylenol Liquid) 650 mg Q4H PRN PO TEMP > 37C; Start 07/22/18 at 12:30 Meperidine HCl (Demerol) 12.5 mg Q4H PRN IV POST OPERATIVE SHIVERING; Start 07/22/18 at 12:30 Meperidine HCl (Demerol) 25 mg Q4H PRN IV POST OPERATIVE SHIVERING; Start 07/22/18 at 12:30 Eye Lubricant (Akwa Oint) 1 applic Q6 BOTH EYES Last administered on 07/26/18 05:47; Admin Dose 1 APPLIC; Start 07/22/18 at 18:00 Eye Lubricant (Artificial Tears Oph) 2 drop Q6 BOTH EYES Last administered on 07/26/18 05:47; Admin Dose 2 DROP; Start 07/22/18 at 18:00 Norepinephrine 250 ml @ 1.875 mls/ hr TITRATE IV Last administered on 07/23/18 01:01; Admin Dose 22.5 MLS/HR; Start 07/22/18 at 13:00 Docusate Sodium (Colace Liquid Cup) 100 mg BID NGT Last administered on 07/25/18 20:56; Admin Dose 100 MG; Start 07/22/18 at 22:00 Midazolam HCl 50 ml @ 1 mls/hr TITRATE IV Last administered on 07/25/18 05:18; Admin Dose 3 MLS/HR; Start 07/23/18 at 02:00 Famotidine (Pepcid) 20 mg DAILY NGT Last administered on 07/26/18 09:15; Admin Dose 20 MG; Start 07/23/18 at 12:00 Diagnostic Test (Pha) (Accu-Chek) 1 ea Q4 XX Last administered on 07/26/18 09:15; Admin Dose 1 EA; Start 07/23/18 at 13:00 Albumin Human 100 ml @ 100 mls/hr WITH DIALYSIS PRN IV SBP <90 DURING DIALYSIS Last administered on 07/23/18 18:07; Admin Dose 100 MLS/HR; Start 07/23/18 at 18:00 Miscellaneous Information (* Miscellaneous Pharmacy Order) Treatment of Hypoglycemia: 1.BG 51... Per protocol XX ; Start 07/24/18 at 02:00 Miscellaneous Information 1 ea NOTE XX ; Start 07/24/18 at 02:30 Glucose (Glutose) 15 gm Q15M PRN PO DECREASED GLUCOSE; Start 07/24/18 at 02:30 Glucose (Glutose) 22.5 gm Q15M PRN PO DECREASED GLUCOSE; Start 07/24/18 at 02:30 Dextrose (D50w Syringe) 25 ml Q15M PRN IV DECREASED GLUCOSE Last administered on 07/25/18at 23:07; Admin Dose 25 ML; Start 07/24/18 at 02:30 Dextrose (D50w Syringe) 50 ml Q15M PRN IV DECREASED GLUCOSE; Start 07/24/18 at 02:30 Glucagon (Glucagen) 1 mg Q15M PRN IM DECREASED GLUCOSE; Start 07/24/18 at 02:30 Glucose (Glutose) 15 gm Q15M PRN BUCCAL DECREASED GLUCOSE; Start 07/24/18 at 02:30 Cefepime HCl 50 ml @ 100 mls/hr DAILY IVPB Last administered on 07/25/18at 08:11; Admin Dose 100 MLS/HR; Start 07/24/18 at 12:30 Metronidazole (Flagyl) 500 mg Q8 PO Last administered on 07/26/18at 05:47; Admin Dose 500 MG; Start 07/24/18 at 13:00 Total Parenteral Nutrition 1,000 ml @ 40 mls/hr Q24H IV ; Start 07/24/18 at 12:00; Status UNV Calcium Acetate (Phoslo) 1,334 mg TID NGT Last administered on 07/26/18at 09:15; Admin Dose 1,334 MG; Start 07/25/18 at 13:00 Dextrose/Sodium Chloride 1,000 ml @ 40 mls/hr Q24H IV Last administered on 07/25/18at 23:20; Admin Dose 40 MLS/HR; Start 07/25/18 at 23:30 Hydrocortisone (Solu-Cortef) 200 mg Q8 IV Last administered on 07/26/18at 06:03; Admin Dose 200 MG; Start 07/26/18 at 06:00 Vancomycin/Sodium Chloride 250 ml @ 125 mls/hr ONCE IVPB ; Start 07/26/18 at 10:30; Stop 07/26/18 at 20:00 EDY BASHIR July 26, 2018 11:19
[2018-07-26] MEDS: CEFEPIME 1GM/50 ML (PMX) 50 ML IVPB SCH (11:44)
--- NOTE | 2018-07-26 14:54 | PN ---
Date/Time of Note Date/Time of Note DATE: 07/26/18 TIME: 14:53 Assessment/Plan VTE Prophylaxis Risk score (from Ns)>0 risk: 10 SCD applied (from [facility] [place]): Yes Pharmacological prophylaxis: NA/contraindicated Pharm contraindication: hemorrhagic infarct Assessment/Plan Assessment/Plan 1. Thrombocytopenia, likely related to DIC, rule out autoimmune thrombocytopenia. 2. Coagulopathy due to vitamin K deficiency, partially corrected. 3. Renal failure. 4. 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 DISCUSSION: The patient's coagulation abnormalities has improved with vitamin K. The improvement in fibrinogen is likely due to the administration of 10 bags of cryoprecipitate. The patient, as mentioned, does have thrombocytopenia with large platelets suggesting some peripheral destruction. This may be autoimmune in nature and also possibly associated with a consumptive coagulopathy. The patient does have some evidence of DIC associated with the marked hypotension. Platelets and plasma will be administered for noted ICH on CT scan. Result Diagram: 07/26/18 0514 07/26/18 0502 Results 24hrs Laboratory Tests Test 07/25/18 17:12 07/25/18 20:55 07/25/18 23:04 07/25/18 23:25 Bedside Glucose 86 70 60 L 197 Test 07/25/18 23:40 07/26/18 01:21 07/26/18 04:32 07/26/18 04:51 Bedside Glucose 142 135 154 Random Vancomycin 12.4 Level Test 07/26/18 05:02 07/26/18 05:14 07/26/18 05:28 07/26/18 08:30 Sodium Level 136 Potassium Level 3.0 L Chloride Level 87 L Carbon Dioxide 18 L Level Anion Gap 31 H Blood Urea 22 H Nitrogen Creatinine 2.07 H Est Glomerular 29 L Filtrat Rate mL/min Glucose Level 130 Calcium Level 7.6 L Total Bilirubin 11.8 H Direct Bilirubin 9.80 H Indirect Bilirubin 2.0 H Aspartate Amino Transf (AST/SGOT) Alanine 1271 H Aminotransferase ( ALT/SGPT) Alkaline 107 Phosphatase Total Protein 6.6 Albumin 3.9 Globulin 2.70 Albumin/Globulin 1.44 Ratio Lipase 1391 H White Blood Count 11.9 H Red Blood Count 3.24 L Hemoglobin 10.6 L Hematocrit 32.5 L Mean Corpuscular 100.3 Volume Mean Corpuscular 32.7 Hemoglobin Mean Corpuscular 32.6 Hemoglobin Concent Red Cell 26.5 H Distribution Width Platelet Count 12 #*L Mean Platelet Volume Immature 1.800 H Granulocytes % Neutrophils % Segmented 52 Neutrophils % (Manual) Band Neutrophils % 35 H (Manual) Lymphocytes % Lymphocytes % 6 L (Manual) Monocytes % Monocytes % 7 (Manual) Eosinophils % Basophils % Nucleated Red 11 H Blood Cells % Immature 0.210 H Granulocytes # Neutrophils # Neutrophils # 6.7 (Manual) Band Neutrophils # 4.1 H Lymphocytes 0.7 L (Manual) Lymphocytes # Monocytes # Monocytes # 0.8 (Manual) Eosinophils # Basophils # Nucleated Red Blood Cells # Platelet Estimate SIG DECREASED Giant Platelets 1 H Polychromasia 1+ Poikilocytosis 3+ Anisocytosis 2+ Microcytosis 1+ Macrocytosis 2+ Ovalocytes 1+ Prothrombin Time 36.6 #H Prothrombin Time 2.9 Ratio INR International 3.69 Normalized Ratio Activated 44.[address] Time Fibrinogen 214.0 # Bedside Glucose 128 Test 07/26/18 13:02 Bedside Glucose 110 Subjective 24 Hr Interval Summary Free Text/Dictation Patient appears comfortable Is not moving Brother and mother at bedside Exam/Review of Systems Exam Vitals Vital Signs Date Temp Pulse Resp B/P (MAP) Pulse Ox O2 O2 Flow FiO2 Time Delivery Rate 07/26/18 95 11:25 07/26/18 12 127/81 100 Mechanical 11:00 (96) Ventilator 07/26/18 30 08:00 07/26/18 97.5 08:00 07/22/18 2.0 10:00 Intake and Output 07/25/18 07/25/18 07/26/18 1515:00 23:00 07:00 IntakeIntake Total 182 ml 806 ml 460 ml BalanceBalance 182 ml 806 ml 460 ml Constitutional: non-verbal Head: normocephalic, atraumatic Eyes: nl lids, nl sclera Neck: supple, non-tender Respiratory: clear to auscultation, normal air movement Cardiovascular: regular rate and rhythm Gastrointestinal: soft, non-tender Extremities: normal pulses Results Results 24hrs Laboratory Tests Test 07/25/18 17:12 07/25/18 20:55 07/25/18 23:04 07/25/18 23:25 Bedside Glucose 86 70 60 L 197 Test 07/25/18 23:40 07/26/18 01:21 07/26/18 04:32 07/26/18 04:51 Bedside Glucose 142 135 154 Random Vancomycin 12.4 Level Test 07/26/18 05:02 07/26/18 05:14 07/26/18 05:28 07/26/18 08:30 Sodium Level 136 Potassium Level 3.0 L Chloride Level 87 L Carbon Dioxide 18 L Level Anion Gap 31 H Blood Urea 22 H Nitrogen Creatinine 2.07 H Est Glomerular 29 L Filtrat Rate mL/min Glucose Level 130 Calcium Level 7.6 L Total Bilirubin 11.8 H Direct Bilirubin 9.80 H Indirect Bilirubin 2.0 H Aspartate Amino Transf (AST/SGOT) Alanine 1271 H Aminotransferase ( ALT/SGPT) Alkaline 107 Phosphatase Total Protein 6.6 Albumin 3.9 Globulin 2.70 Albumin/Globulin 1.44 Ratio Lipase 1391 H White Blood Count 11.9 H Red Blood Count 3.24 L Hemoglobin 10.6 L Hematocrit 32.5 L Mean Corpuscular 100.3 Volume Mean Corpuscular 32.7 Hemoglobin Mean Corpuscular 32.6 Hemoglobin Concent Red Cell 26.5 H Distribution Width Platelet Count 12 #*L Mean Platelet Volume Immature 1.800 H Granulocytes % Neutrophils % Segmented 52 Neutrophils % (Manual) Band Neutrophils % 35 H (Manual) Lymphocytes % Lymphocytes % 6 L (Manual) Monocytes % Monocytes % 7 (Manual) Eosinophils % Basophils % Nucleated Red 11 H Blood Cells % Immature 0.210 H Granulocytes # Neutrophils # Neutrophils # 6.7 (Manual) Band Neutrophils # 4.1 H Lymphocytes 0.7 L (Manual) Lymphocytes # Monocytes # Monocytes # 0.8 (Manual) Eosinophils # Basophils # Nucleated Red Blood Cells # Platelet Estimate SIG DECREASED Giant Platelets 1 H Polychromasia 1+ Poikilocytosis 3+ Anisocytosis 2+ Microcytosis 1+ Macrocytosis 2+ Ovalocytes 1+ Prothrombin Time 36.6 #H Prothrombin Time 2.9 Ratio INR International 3.69 Normalized Ratio Activated 44.[address] Time Fibrinogen 214.0 # Bedside Glucose 128 Test 07/26/18 13:02 Bedside Glucose 110 Medications Medication Current Medications Lorazepam (Ativan) 0.5 mg Q6H PRN IV .ANXIETY; Start 07/22/18 at 10:30 Ondansetron HCl (Zofran Inj) 4 mg Q6H PRN IV NAUSEA/VOMITING; Start 07/22/18 at 10:30 Aspirin (Aspirin) 81 mg DAILY PO ; Start 07/23/18 at 09:00; Status Hold Vancomycin HCl (Vanco Iv Per Pharmacy) VANCOMYCIN PER PHARMACY PER PROTOCOL XX ; Start 07/22/18 at 10:30 Multivit/Ca Carb/ B Cmplx/FA/Prenat ([facility]ita-Abigail) 1 tab DAILY PO Last administered on 07/26/18at 09:15; Admin Dose 1 TAB; Start 07/23/18 at 09:00 Phenylephrine HCl 250 ml @ 75 mls/hr TITRATE IV ; Start 07/22/18 at 12:00 Acetaminophen (Tylenol Supp) 650 mg Q4H PRN [place] TEMP > 37C; Start 07/22/18 at 12:30 Acetaminophen (Tylenol Liquid) 650 mg Q4H PRN PO TEMP > 37C; Start 07/22/18 at 12:30 Meperidine HCl (Demerol) 12.5 mg Q4H PRN IV POST OPERATIVE SHIVERING; Start 07/22/18 at 12:30 Meperidine HCl (Demerol) 25 mg Q4H PRN IV POST OPERATIVE SHIVERING; Start 07/22/18 at 12:30 Eye Lubricant (Akwa Oint) 1 applic Q6 BOTH EYES Last administered on 07/26/18 11:44; Admin Dose 1 APPLIC; Start 07/22/18 at 18:00 Eye Lubricant (Artificial Tears Oph) 2 drop Q6 BOTH EYES Last administered on 07/26/18 11:44; Admin Dose 2 DROP; Start 07/22/18 at 18:00 Norepinephrine 250 ml @ 1.875 mls/ hr TITRATE IV Last administered on 07/23/18 01:01; Admin Dose 22.5 MLS/HR; Start 07/22/18 at 13:00 Docusate Sodium (Colace Liquid Cup) 100 mg BID NGT Last administered on 07/25/18at 20:56; Admin Dose 100 MG; Start 07/22/18 at 22:00 Midazolam HCl 50 ml @ 1 mls/hr TITRATE IV Last administered on 07/25/18 05:18; Admin Dose 3 MLS/HR; Start 07/23/18 at 02:00 Famotidine (Pepcid) 20 mg DAILY NGT Last administered on 07/26/18 09:15; Admin Dose 20 MG; Start 07/23/18 at 12:00 Diagnostic Test (Pha) (Accu-Chek) 1 ea Q4 XX Last administered on 07/26/18 12:52; Admin Dose 1 EA; Start 07/23/18 at 13:00 Albumin Human 100 ml @ 100 mls/hr WITH DIALYSIS PRN IV SBP <90 DURING DIALYSIS Last administered on 07/23/18 18:07; Admin Dose 100 MLS/HR; Start 07/23/18 at 18:00 Miscellaneous Information (* Miscellaneous Pharmacy Order) Treatment of Hypoglycemia: 1.BG 51... Per protocol XX ; Start 07/24/18 at 02:00 Miscellaneous Information 1 ea NOTE XX ; Start 07/24/18 at 02:30 Glucose (Glutose) 15 gm Q15M PRN PO DECREASED GLUCOSE; Start 07/24/18 at 02:30 Glucose (Glutose) 22.5 gm Q15M PRN PO DECREASED GLUCOSE; Start 07/24/18 at 02:30 Dextrose (D50w Syringe) 25 ml Q15M PRN IV DECREASED GLUCOSE Last administered on 07/25/18 23:07; Admin Dose 25 ML; Start 07/24/18 at 02:30 Dextrose (D50w Syringe) 50 ml Q15M PRN IV DECREASED GLUCOSE; Start 07/24/18 at 02:30 Glucagon (Glucagen) 1 mg Q15M PRN IM DECREASED GLUCOSE; Start 07/24/18 at 02:30 Glucose (Glutose) 15 gm Q15M PRN BUCCAL DECREASED GLUCOSE; Start 07/24/18 at 02:30 Cefepime HCl 50 ml @ 100 mls/hr DAILY IVPB Last administered on 07/26/18at 11:44; Admin Dose 100 MLS/HR; Start 07/24/18 at 12:30 Metronidazole (Flagyl) 500 mg Q8 PO Last administered on 07/26/18at 14:17; Admin Dose 500 MG; Start 07/24/18 at 13:00 Total Parenteral Nutrition 1,000 ml @ 40 mls/hr Q24H IV ; Start 07/24/18 at 12:00; Status UNV Calcium Acetate (Phoslo) 1,334 mg TID NGT Last administered on 5/25/19at 09:15; Admin Dose 1,334 MG; Start 07/25/18 at 13:00 Dextrose/Sodium Chloride 1,000 ml @ 40 mls/hr Q24H IV Last administered on 07/25/18at 23:20; Admin Dose 40 MLS/HR; Start 07/25/18 at 23:30 Hydrocortisone (Solu-Cortef) 200 mg Q8 IV Last administered on 07/26/18at 14:17; Admin Dose 100 MG; Start 07/26/18 at 06:00 Vancomycin/Sodium Chloride 250 ml @ 125 mls/hr ONCE IVPB Last administered on 07/26/18at 10:30; Admin Dose 125 MLS/HR; Start 07/26/18 at 10:30; Stop 07/26/18 at 20:00 YOUNG GRAVES MD July 26, 2018 14:54
--- NOTE | 2018-07-26 16:38 | CONS ---
Assessment/Plan Assessment/Plan Hospital Course (Demo Recall) ID PROGRESS NOTE CURRENT ABX: DAY #=> Vanco IV + Cefepime + Flagyl Hx of Present Illness * 27-year-old woman with history of end-stage kidney disease hemodialysis dependent was brought in by EMS from home for confusion and altered mental status. Subsequently went into cardiac arrest with ROSC. History of pulmonary edema and heart failure with EF of 45%, end-stage kidney disease hemodialysis dependent, history of heart block with pacemaker, hypertension, anemia of chronic disease, blind, thrombocytopenia * History of Surgery: Yes (AVF PLACEMENT 2014, GRAFT 2014, PACEMAKER 2006 ) 24H INTERVAL SUMMARY * Encephalopathic on the Vent - parents are present * Indwelling: Endotracheal tube, NG tube, right subclavian triple-lumen catheter, right upper extremity AV fistula, PPM IMAGING * 07/26/18 CXR: IMPRESSION:1. Cardiomegaly.2. Haziness in the perihilar and lower lung regions may all be due to pulmonary edema however rule out inflammatory infiltrates.3. Probable mild pulmonary vascular congestion. 4. Tiny right pleural effusion. * Repeat CT of the brain revealed bilateral inferior cerebellar infarcts left greater than right similar in extent compared to prior CT no other changes. Sinus disease with an air-fluid levels in the sphenoid sinuses and ethmoid air cells. Please see full report in the chart. Chest x-ray revealed cardiomegaly decreased hazy opacification of the pulmonary parenchyma * CT of the abdomen and pelvis revealed diffuse wall thickening of the colon consistent with colitis. Bibasilar groundglass infiltrates or edema of the lungs with small right pleural effusion. Scattered mild ascites and mesenteric edema. Please see full record in the chart MICRO/OTHER * 07/22/18 BCX (-); (-)MRSA nares PHYSICAL EXAMINATION: GENERAL: VSS, Critically ill on the VEnt HEENT: AT, NC, puffy eyes NECK: WNL CHEST: Coarse BS ABD: Soft, ND EXTREMITIES: Puffy edema, dry,cyanotic SKIN: No rash, no diaphoresis ID ASSESSMENT 27 yo F admit with: 1. Severe sepsis, status post shock 2. S/p PEA arrest 3. Acute CVA 4. Acute on chronic sinusitis 5. Colitis -- ?Ischemic 6. S/p MSSA bacteremia per report from [facility], unclear if ROSANNE was done * ==> pt was dc on Rifampin and ? IV Vanco 7. ESRD 8. SZ do 9. CAD/Hx PPM 10. Anemia 11. Thrombocytopenia 12. DM 13. Increased lipase==> no evidence of pancreatitis on the CAT scan (-)MRSA Nares ABX ALLERGIES: QUINOLONES INVASIVES: PIV CURRENT ABX: DAY # => Vanco IV + Cefepime + Flagyl ID RECOMMENDATIONS/PLAN: 1. Continue current ABX and supportive care 2. I will be covering for "[employer]" with Dr. Garcia over the 3-day weekend. . Consultation Date/Type/Reason Admit Date/Time July 22, 2018 at 09:09 Initial Consult Date 07/23/18 Requesting Provider: TRINITY ELENA Date/Time of Note DATE: 07/26/18 TIME: 16:38 Exam/Review of Systems Exam Vitals Vital Signs Date Temp Pulse Resp B/P (MAP) Pulse Ox O2 O2 Flow FiO2 Time Delivery Rate 07/26/18 88 16:00 07/26/18 12 100 30 15:45 07/26/18 105/76 Mechanical 15:00 (86) Ventilator 07/26/18 97.7 12:00 07/22/18 2.0 10:00 Intake and Output 07/25/18 07/25/18 07/26/18 1515:00 23:00 07:00 IntakeIntake Total 182 ml 806 ml 460 ml BalanceBalance 182 ml 806 ml 460 ml Results Result Diagram: 07/26/18 0514 07/26/18 0502 Results 24hrs Laboratory Tests Test 07/25/18 17:12 07/25/18 20:55 07/25/18 23:04 07/25/18 23:25 Bedside Glucose 86 70 60 L 197 Test 07/25/18 23:40 07/26/18 01:21 07/26/18 04:32 07/26/18 04:51 Bedside Glucose 142 135 154 Random Vancomycin 12.4 Level Test 07/26/18 05:02 07/26/18 05:14 07/26/18 05:28 07/26/18 08:30 Sodium Level 136 Potassium Level 3.0 L Chloride Level 87 L Carbon Dioxide 18 L Level Anion Gap 31 H Blood Urea 22 H Nitrogen Creatinine 2.07 H Est Glomerular 29 L Filtrat Rate mL/min Glucose Level 130 Calcium Level 7.6 L Total Bilirubin 11.8 H Direct Bilirubin 9.80 H Indirect Bilirubin 2.0 H Aspartate Amino Transf (AST/SGOT) Alanine 1271 H Aminotransferase ( ALT/SGPT) Alkaline 107 Phosphatase Total Protein 6.6 Albumin 3.9 Globulin 2.70 Albumin/Globulin 1.44 Ratio Lipase 1391 H White Blood Count 11.9 H Red Blood Count 3.24 L Hemoglobin 10.6 L Hematocrit 32.5 L Mean Corpuscular 100.3 Volume Mean Corpuscular 32.7 Hemoglobin Mean Corpuscular 32.6 Hemoglobin Concent Red Cell 26.5 H Distribution Width Platelet Count 12 #*L Mean Platelet Volume Immature 1.800 H Granulocytes % Neutrophils % Segmented 52 Neutrophils % (Manual) Band Neutrophils % 35 H (Manual) Lymphocytes % Lymphocytes % 6 L (Manual) Monocytes % Monocytes % 7 (Manual) Eosinophils % Basophils % Nucleated Red 11 H Blood Cells % Immature 0.210 H Granulocytes # Neutrophils # Neutrophils # 6.7 (Manual) Band Neutrophils # 4.1 H Lymphocytes 0.7 L (Manual) Lymphocytes # Monocytes # Monocytes # 0.8 (Manual) Eosinophils # Basophils # Nucleated Red Blood Cells # Platelet Estimate SIG DECREASED Giant Platelets 1 H Polychromasia 1+ Poikilocytosis 3+ Anisocytosis 2+ Microcytosis 1+ Macrocytosis 2+ Ovalocytes 1+ Prothrombin Time 36.6 #H Prothrombin Time 2.9 Ratio INR International 3.69 Normalized Ratio Activated 44.[address] Time Fibrinogen 214.0 # Bedside Glucose 128 Test 07/26/18 13:02 Bedside Glucose 110 Medications Medication Current Medications Lorazepam (Ativan) 0.5 mg Q6H PRN IV .ANXIETY; Start 07/22/18 at 10:30 Ondansetron HCl (Zofran Inj) 4 mg Q6H PRN IV NAUSEA/VOMITING; Start 07/22/18 at 10:30 Aspirin (Aspirin) 81 mg DAILY PO ; Start 07/23/18 at 09:00; Status Hold Vancomycin HCl (Vanco Iv Per Pharmacy) VANCOMYCIN PER PHARMACY PER PROTOCOL XX ; Start 07/22/18 at 10:30 Multivit/Ca Carb/ B Cmplx/FA/Prenat (Lalita-Abigail) 1 tab DAILY PO Last administered on 07/26/18at 09:15; Admin Dose 1 TAB; Start 07/23/18 at 09:00 Phenylephrine HCl 250 ml @ 75 mls/hr TITRATE IV ; Start 07/22/18 at 12:00 Acetaminophen (Tylenol Supp) 650 mg Q4H PRN HI TEMP > 37C; Start 07/22/18 at 12:30 Acetaminophen (Tylenol Liquid) 650 mg Q4H PRN PO TEMP > 37C; Start 07/22/18 at 12:30 Meperidine HCl (Demerol) 12.5 mg Q4H PRN IV POST OPERATIVE SHIVERING; Start 07/22/18 at 12:30 Meperidine HCl (Demerol) 25 mg Q4H PRN IV POST OPERATIVE SHIVERING; Start 07/22/18 at 12:30 Eye Lubricant (Akwa Oint) 1 applic Q6 BOTH EYES Last administered on 07/26/18 11:44; Admin Dose 1 APPLIC; Start 07/22/18 at 18:00 Eye Lubricant (Artificial Tears Oph) 2 drop Q6 BOTH EYES Last administered on 07/26/18 11:44; Admin Dose 2 DROP; Start 07/22/18 at 18:00 Norepinephrine 250 ml @ 1.875 mls/ hr TITRATE IV Last administered on 07/23/18 01:01; Admin Dose 22.5 MLS/HR; Start 07/22/18 at 13:00 Docusate Sodium (Colace Liquid Cup) 100 mg BID NGT Last administered on 07/25/18 20:56; Admin Dose 100 MG; Start 07/22/18 at 22:00 Midazolam HCl 50 ml @ 1 mls/hr TITRATE IV Last administered on 07/25/18 05:18; Admin Dose 3 MLS/HR; Start 07/23/18 at 02:00 Famotidine (Pepcid) 20 mg DAILY NGT Last administered on 07/26/18 09:15; Admin Dose 20 MG; Start 07/23/18 at 12:00 Diagnostic Test (Pha) (Accu-Chek) 1 ea Q4 XX Last administered on 07/26/18 12:52; Admin Dose 1 EA; Start 07/23/18 at 13:00 Albumin Human 100 ml @ 100 mls/hr WITH DIALYSIS PRN IV SBP <90 DURING DIALYSIS Last administered on 07/23/18 18:07; Admin Dose 100 MLS/HR; Start 07/23/18 at 18:00 Miscellaneous Information (* Miscellaneous Pharmacy Order) Treatment of Hypogly cemia: 1.BG 51... Per protocol XX ; Start 07/24/18 at 02:00 Miscellaneous Information 1 ea NOTE XX ; Start 07/24/18 at 02:30 Glucose (Glutose) 15 gm Q15M PRN PO DECREASED GLUCOSE; Start 07/24/18 at 02:30 Glucose (Glutose) 22.5 gm Q15M PRN PO DECREASED GLUCOSE; Start 07/24/18 at 02:30 Dextrose (D50w Syringe) 25 ml Q15M PRN IV DECREASED GLUCOSE Last administered on 07/25/18at 23:07; Admin Dose 25 ML; Start 07/24/18 at 02:30 Dextrose (D50w Syringe) 50 ml Q15M PRN IV DECREASED GLUCOSE; Start 07/24/18 at 02:30 Glucagon (Glucagen) 1 mg Q15M PRN IM DECREASED GLUCOSE; Start 07/24/18 at 02:30 Glucose (Glutose) 15 gm Q15M PRN BUCCAL DECREASED GLUCOSE; Start 07/24/18 at 02:30 Cefepime HCl 50 ml @ 100 mls/hr DAILY IVPB Last administered on 07/26/18at 11:44; Admin Dose 100 MLS/HR; Start 07/24/18 at 12:30 Metronidazole (Flagyl) 500 mg Q8 PO Last administered on 07/26/18at 14:17; Admin Dose 500 MG; Start 07/24/18 at 13:00 Total Parenteral Nutrition 1,000 ml @ 40 mls/hr Q24H IV ; Start 07/24/18 at 12:00; Status UNV Calcium Acetate (Phoslo) 1,334 mg TID NGT Last administered on 07/26/18at 09:15; Admin Dose 1,334 MG; Start 07/25/18 at 13:00 Dextrose/Sodium Chloride 1,000 ml @ 40 mls/hr Q24H IV Last administered on 07/25/18at 23:20; Admin Dose 40 MLS/HR; Start 07/25/18 at 23:30 Hydrocortisone (Solu-Cortef) 200 mg Q8 IV Last administered on 07/26/18at 14:17; Admin Dose 100 MG; Start 07/26/18 at 06:00 Vancomycin/Sodium Chloride 250 ml @ 125 mls/hr ONCE IVPB Last administered on 07/26/18at 10:30; Admin Dose 125 MLS/HR; Start 07/26/18 at 10:30; Stop 07/26/18 at 20:00 GRICEL DAVE NP July 26, 2018 16:38
[2018-07-26] MEDS ORDERED: POTASSIUM CHLORIDE 50 ML IVPB ONE ×2 (21:00→22:00)
[2018-07-27] VITALS (33 sets, daily range): BP systolic 84–111; BP diastolic 69–91; PULSE 60–88; RESP 12–21
[2018-07-27] MEDS: OCULAR LUBRICANT 3.5 GM OPH OINT BOTH EYES SCH ×4 (00:10→17:53)
[2018-07-27] MEDS: ARTIFICIAL TEARS 15 ML OPH BOTH EYES SCH ×4 (00:10→17:53)
[2018-07-27] MEDS: ACCU-CHEK XX SCH ×6 (00:11→20:59)
[2018-07-27] MEDS: DEXTROSE 5%-0.45% NACL 1,000 ML IV SCH (04:05)
[2018-07-27] MEDS: HYDROCORTISONE 100 MG INJ IV SCH ×3 (05:44→21:00)
[2018-07-27] MEDS: metroNIDAZOLE 500 MG TAB PO SCH ×3 (05:44→21:00)
--- NOTE | 2018-07-27 08:06 | CONS ---
Consultation Date/Type/Reason Admit Date/Time July 22, 2018 at 09:09 Initial Consult Date 07/23/18 Requesting Provider: TRINITY ELENA Date/Time of Note DATE: 07/27/18 TIME: 08:04 24 HR Interval Summary Free Text/Dictation ADDENDUM: CT performed, appears unchanged. No significant increase in hematomas, no increased mass effect from strokes, no hydrocephalus or brain stem compression. Patient needs MRI for better prognostication as stroke may involve brain stem to account for neurological changes. Radiologist interpretation pending Exam/Review of Systems Exam Vitals Vital Signs Date Temp Pulse Resp B/P (MAP) Pulse Ox O2 O2 Flow FiO2 Time Delivery Rate 07/27/18 82 12 105/82 99 Mechanical 06:00 (90) Ventilator 07/27/18 30 05:00 07/27/18 97.6 04:00 Intake and Output 07/26/18 07/26/18 07/27/18 1515:00 23:00 07:00 IntakeIntake Total 880 ml 1239 ml 470 ml OutputOutput Total 1700 ml BalanceBalance -820 ml 1239 ml 470 ml Results Result Diagram: 07/27/18 0441 07/27/18 0441 Results 24hrs Laboratory Tests Test 07/26/18 08:30 07/26/18 13:02 07/26/18 17:13 07/26/18 19:54 Bedside Glucose 128 110 114 Potassium Level 3.3 L Test 07/26/18 21:16 07/27/18 00:09 07/27/18 04:02 07/27/18 04:41 Bedside Glucose 153 102 137 White Blood Count 4.3 #L Red Blood Count 3.12 L Hemoglobin 10.1 L Hematocrit 30.9 L Mean Corpuscular 99.0 Volume Mean Corpuscular 32.4 Hemoglobin Mean Corpuscular 32.7 Hemoglobin Concent Red Cell 26.6 H Distribution Width Platelet Count 29 #*L Mean Platelet Volume 12.5 H Immature 15.300 H Granulocytes % Neutrophils % 47.0 Lymphocytes % 18.5 Monocytes % 19.0 H Eosinophils % 0.0 Basophils % 0.2 Nucleated Red Blood 38.2 H Cells % Immature 0.660 H Granulocytes # Neutrophils # 2.0 Lymphocytes # 0.8 Monocytes # 0.8 Eosinophils # 0.0 Basophils # 0.0 Nucleated Red Blood 1.7 H Cells # Sodium Level 138 Potassium Level 4.2 Chloride Level 94 L Carbon Dioxide Level 18 L Anion Gap 26 H Blood Urea Nitrogen 22 H Creatinine 1.61 H Est Glomerular 38 L Filtrat Rate mL/min Glucose Level 125 Calcium Level 7.6 L Phosphorus Level 2.6 Magnesium Level 1.8 Ammonia 28 Lipase 433 H Complement C3 < 40 L Complement C4 < 8 L Medications Medication Current Medications Lorazepam (Ativan) 0.5 mg Q6H PRN IV .ANXIETY; Start 07/22/18 at 10:30 Ondansetron HCl (Zofran Inj) 4 mg Q6H PRN IV NAUSEA/VOMITING; Start 07/22/18 at 10:30 Aspirin (Aspirin) 81 mg DAILY PO ; Start 07/23/18 at 09:00; Status Hold Vancomycin HCl (Vanco Iv Per Pharmacy) VANCOMYCIN PER PHARMACY PER PROTOCOL XX ; Start 07/22/18 at 10:30 Multivit/Ca Carb/ B Cmplx/FA/Prenat (Lalita-Abigail) 1 tab DAILY PO Last administered on 07/26/18at 09:15; Admin Dose 1 TAB; Start 07/23/18 at 09:00 Phenylephrine HCl 250 ml @ 75 mls/hr TITRATE IV ; Start 07/22/18 at 12:00 Acetaminophen (Tylenol Supp) 650 mg Q4H PRN CA TEMP > 37C; Start 07/22/18 at 12:30 Acetaminophen (Tylenol Liquid) 650 mg Q4H PRN PO TEMP > 37C; Start 07/22/18 at 12:30 Meperidine HCl (Demerol) 12.5 mg Q4H PRN IV POST OPERATIVE SHIVERING; Start 07/22/18 at 12:30 Meperidine HCl (Demerol) 25 mg Q4H PRN IV POST OPERATIVE SHIVERING; Start 07/22/18 at 12:30 Eye Lubricant (Akwa Oint) 1 applic Q6 BOTH EYES Last administered on 07/27/18at 05:44; Admin Dose 1 APPLIC; Start 07/22/18 at 18:00 Eye Lubricant (Artificial Tears Oph) 2 drop Q6 BOTH EYES Last administered on 07/27/18at 05:44; Admin Dose 2 DROP; Start 07/22/18 at 18:00 Norepinephrine 250 ml @ 1.875 mls/ hr TITRATE IV Last administered on 07/23/18at 01:01; Admin Dose 22.5 MLS/HR; Start 07/22/18 at 13:00 Docusate Sodium (Colace Liquid Cup) 100 mg BID NGT Last administered on 07/26/18at 21:19; Admin Dose 100 MG; Start 07/22/18 at 22:00 Midazolam HCl 50 ml @ 1 mls/hr TITRATE IV Last administered on 07/25/18at 05:18; Admin Dose 3 MLS/HR; Start 07/23/18 at 02:00 Famotidine (Pepcid) 20 mg DAILY NGT Last administered on 07/26/18at 09:15; Admin Dose 20 MG; Start 07/23/18 at 12:00 Diagnostic Test (Pha) (Accu-Chek) 1 ea Q4 XX Last administered on 07/27/18at 04:04; Admin Dose 1 EA; Start 07/23/18 at 13:00 Albumin Human 100 ml @ 100 mls/hr WITH DIALYSIS PRN IV SBP <90 DURING DIALYSIS Last administered on 07/23/18at 18:07; Admin Dose 100 MLS/HR; Start 07/23/18 at 18:00 Miscellaneous Information (* Miscellaneous Pharmacy Order) Treatment of Hypoglycemia: 1.BG 51... Per protocol XX ; Start 07/24/18 at 02:00 Miscellaneous Information 1 ea NOTE XX ; Start 07/24/18 at 02:30 Glucose (Glutose) 15 gm Q15M PRN PO DECREASED GLUCOSE; Start 07/24/18 at 02:30 Glucose (Glutose) 22.5 gm Q15M PRN PO DECREASED GLUCOSE; Start 07/24/18 at 02:30 Dextrose (D50w Syringe) 25 ml Q15M PRN IV DECREASED GLUCOSE Last administered on 07/25/18at 23:07; Admin Dose 25 ML; Start 07/24/18 at 02:30 Dextrose (D50w Syringe) 50 ml Q15M PRN IV DECREASED GLUCOSE; Start 07/24/18 at 02:30 Glucagon (Glucagen) 1 mg Q15M PRN IM DECREASED GLUCOSE; Start 07/24/18 at 02:30 Glucose (Glutose) 15 gm Q15M PRN BUCCAL DECREASED GLUCOSE; Start 07/24/18 at 02:30 Cefepime HCl 50 ml @ 100 mls/hr DAILY IVPB Last administered on 07/26/18at 11:44; Admin Dose 100 MLS/HR; Start 07/24/18 at 12:30 Metronidazole (Flagyl) 500 mg Q8 PO Last administered on 07/27/18at 05:44; Admin Dose 500 MG; Start 07/24/18 at 13:00 Total Parenteral Nutrition 1,000 ml @ 40 mls/hr Q24H IV ; Start 07/24/18 at 12:00; Status UNV Calcium Acetate (Phoslo) 1,334 mg TID NGT Last administered on 07/26/18at 21:19; Admin Dose 1,334 MG; Start 07/25/18 at 13:00 Dextrose/Sodium Chloride 1,000 ml @ 40 mls/hr Q24H IV Last administered on 07/27/18at 04:05; Admin Dose 40 MLS/HR; Start 07/25/18 at 23:30 Hydrocortisone (Solu-Cortef) 200 mg Q8 IV Last administered on 07/27/18at 05:44; Admin Dose 200 MG; Start 07/26/18 at 06:00 ISAI WAYNE MD July 27, 2018 08:06
--- NOTE | 2018-07-27 09:01 | CONS ---
DATE OF ADMISSION: 07/22/2018 DATE OF CONSULTATION: 07/27/2018 REQUESTING PHYSICIAN: Dr. Steve Auguste INDICATION FOR CONSULTATION: Intracranial hemorrhage. HISTORY OF PRESENT ILLNESS: The patient is a 27-year-old female with a history of renal failure on dialysis and retinitis pigmentosa who was brought to the ER for confusion and altered mental status. The patient was noted to have previously been admitted for bladder infection and was noted to have sepsis as well as acute pancreatitis. A CT scan of the head was performed which showed evidence of bilateral cerebellar strokes, left greater than right; however, there is no evidence of acute hemorrhage, herniation or hydrocephalus. A repeat scan was performed on the , which is unchanged; however a scan performed on the showed some small punctate areas of hyperintensity consistent with hemorrhagic conversion. Still there was no evidence of significant swelling, shift or hydrocephalus. The patient does have underlying mild to moderate central greater than peripheral cerebral volume loss and mild to moderate chronic microvascular ischemic changes. The patient had been intubated and reported the initial scan was performed because the patient had lost her gag reflex. However, the patient's pupils are reactive. The patient's neurologic examination, however, waxes and wanes and as recent as 3 hours ago the nursing examination updated the patient's exam had improved and that she would minimally attempt to open her right eye to command and would follow simple commands such weakly wiggling her toes and moving her fingers. The patient unfortunately was also reportedly in DIC and thrombocytopenia with platelet count of 12,000. On admission, she was 18,000. The patient's PT yesterday had risen to 36.6 with an INR of 2.9 and an APTT of 44. History is obtained from the patient's brother and mother who were at the bedside. PAST MEDICAL HISTORY: Significant for retinitis pigmentosa, end-stage renal disease on dialysis Saturday, and Saturday, history of pacemaker placement. History of bladder infections. 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 She reported a chronic thrombocytopenia and had been on Eliquis. She also has a history of cardiomyopathy and hypertension. ALLERGIES: Include: 1. CIPROFLOXACIN. 2. HEPARIN. 3. LEVOFLOXACIN. 4. POTASSIUM. MEDICATIONS: On admission were azithromycin, calcium, ceftriaxone and magnesium sulfate. PAST SURGICAL HISTORY: Significant for dialysis and pacemaker. FAMILY HISTORY: Significant for heart disease and cancer. SOCIAL HISTORY: The patient is a nonsmoker. She reportedly was of grossly normal intelligence without significant developmental delay and a nonsmoker and no history of drug abuse. PHYSICAL EXAMINATION: VITAL SIGNS: The patient's temperature 37.6, pulse 82, respirations 16, blood pressure 105/82, saturating 99% on room air. GENERAL: The patient is a short statured, mildly obese female lying in the hospital bed, intubated, unresponsive. HEAD AND NECK: Normocephalic, atraumatic. The patient may have some mild anasarca. CARDIAC: Regular rate and rhythm. LUNGS: Clear to auscultation. ABDOMEN: Nontender, nondistended, soft. EXTREMITIES: No clubbing, cyanosis, but she does appear to have some mild edema. NEUROLOGIC: Patient's eyes are closed. She is unresponsive. Due to the patient's thrombocytopenia, it was difficult to elicit to provide significant noxious stimuli to elicit pain; however, the patient does not appear to have withdrawal to pain. She does not follow commands, will not open her eyes. Her right pupil appears to be minimally reactive to light in the left as well, though in a delayed fashion. The patient did seem to move her eyes slightly to the right. She seemed to have a slightly diminished corneal reflex bilaterally. The patient is breathing above the vent. Again, as even 4 hours ago, the nurse that the patient would minimally open her eyes and minimally move to command. The patient's family who was at bedside confirmed that she did show the slight movements. The patient's deep tendon reflexes appear absent with no clonus or Javi sign. Unable to assess other neurologic examination secondary to condition. REVIEW OF SYSTEMS: Unable to perform secondary to patient's neurologic condition. The patient is intubated. LABORATORY DATA: The patient's current PT is 36.6. INR 2.9. PTT of 44. Her white count was 4.3 this morning, the hemoglobin 10.1, platelets had been up to 29,000 possibly from transfusion. Her sodium is 138, BUN and creatinine 22 and 1.61 with a glucose of 125. The patient is hep B positive per labs on the . REVIEW OF RADIOGRAPHIC RESULTS: I reviewed the patient's multiple CTs including the last CT scan as discussed in the history of present illness. ASSESSMENT AND PLAN: A 27-year-old female with DIC, thrombocytopenia, multiple medical problems, status post cerebellar stroke with slight hemorrhagic conversion. I discussed patient's signs, symptoms, physical examination and radiographic findings in detail with the patient's family. The patient did have strokes 2 days yet there does not appear to have been any significant swelling to cause hydrocephalus or brainstem compression as of yet. There may have been some slight hemorrhagic conversion, though again, this did not appear to cause any significant additional mass effect. I explained the difficulty regarding the patient's situation. Unfortunately, the patient has a coagulopathy as well as thrombocytopenia. I discussed the potential neurosurgical intervention that could occur namely for either brainstem compression from the increase in the cerebellar mass or development of hydrocephalus. Unfortunately, given the patient's thrombocytopenia and coagulopathy, I do not believe any surgical procedure could safely be performed for the patient specifically a craniotomy of any type. A ventriculostomy also would have significant risk of causing bleeding unless coagulopathy could be corrected. Therefore, I do not believe that any type of surgical intervention would necessarily benefit the patient at this point, however, it does not appear to be currently necessary. It is unclear if the patient's exam has changed. As of 3 hours ago, the patient was reportedly following commands and would minimally open her eyes, but I was not able to get this examination from the patient. A repeat CT scan can be performed to assess for any interval changes. I have previously discussed with Dr. Steve Auguste yesterday recommendations for correction of the coagulopathy as best possible as well as thrombocytopenia as this would appear to be the only way to possibly prevent any further bleeding, though the extent to which this may actually help cannot be determined. The housekeeping/laundry is following the patient, and the patient has apparently received blood products. Currently, however, I do not see any indication or role for acute surgical intervention, nor is it clear that the patient would be able to have surgery though further evaluation with CT scan is pending for prognostication. Thank you for allowing me to participate in the care of this patient. Dictated By: ISAI WAYNE MD, LG/HEIDE Conf#: [id number] DID#: [id number] CC: GIOVANNA TSANG; TRINITY ELENA MD; STEVE AUGUSTE MD;*EndCC* MTDD
--- NOTE | 2018-07-27 09:02 | CONS ---
Assessment/Plan Assessment/Plan Assessment/Plan (Daily) Chest x-ray from today showing cardiomegaly without any acute infiltrates. There is possibly left lower lobe segmental atelectasis. Difficult to evaluate because of cardiomegaly. Ventilator setting; AC of 12, tidal volume 400, PEEP of 5, 30% FiO2. Assessment recommendations; 1. Patient admitted with cardiac arrest status post brief CPR, patient not meeting criteria for hypothermia protocol because of recovery of adequate mental status, however unfortunately patient has developed bilateral cerebellar infarcts now. 2. Profound encephalopathy. 3. Severe metabolic acidosis on admission with interval correction. 4. History of retinitis pigmentosa. 5. Renal failure, hemodialysis. 6. Anemia. 7. Severe thrombocytopenia with interval improvement. No active bleeding seen. 8. Possibly some element of pneumonia, patient currently on appropriate empiric antimicrobial regimen. 9. Prior history of cardiac arrhythmia, with history of pacemaker placement. 10. Diabetes, patient also had hypoglycemia on admission. Possibly causing cardiac arrest event at home. 11. History of recent intubation at another facility about 2 weeks prior to recent admission. Continue current supportive care. Prognosis appears poor. Patient possibly may need to have a tracheostomy performed. I did have a detailed discussion with the patient's family at bedside answered other questions. 35 minutes of critical care time was spent evaluating patient. Consultation Date/Type/Reason Admit Date/Time July 22, 2018 at 09:09 Initial Consult Date 07/23/18 Type of Consult Pulmonary/critical care Pulmonary consult requested for evaluation of respiratory failure. Patient is a 27-year-old female who was brought into the hospital with confusion. Patient was found to be severely hypoglycemic but because of hemodynamic instability and poor mental status she was intubated by the ER physician. Patient also was in PEA and required CPR lasting 10 minutes. There was spontaneous recovery of mental status not requiring hypothermia protocol. Patient however has remained mildly hypotensive requiring low-dose Levophed. By the time I saw her, patient is orally intubated and sedated. History was obtained from medical records as well as from patient's sister who was present in the room. According to the patient's sister patient also had similar episode about 2 weeks ago requiring intubation at another facility. Past medical history; 1. History of end-stage renal disease for the last 5 years. 2. History of retinal pigmentosa. 3. Patient had an episode of febrile seizure 2 weeks ago. Without any prior history of seizure activity. 4. Patient is heavily dependent on ADLs. 5. History of diabetes. 6. History of DVT. Patient however has been off anticoagulation per her senior market intelligence consultant recommendations. Medications; reviewed. Patient is currently on Levophed 2 mics per minute, Versed 4 mg/h, insulin drip 1 2units/h. Other medications were reviewed as well. Allergies; as outlined above. Family history; she is single. She lives with her family at home. Occupational history; patient is on disability. Review of system; unable to be obtained. General exam; young female, appears quite emaciated. Orally intubated. Sedated. Currently in no distress. Requesting Provider: TRINITY ELENA Date/Time of Note DATE: 07/27/18 TIME: 08:58 24 HR Interval Summary Free Text/Dictation Patient's condition remains critical. Remains profoundly unresponsive. Patient however has remained hemodynamically stable. General exam; young female, orally intubated, unresponsive, currently in no distress. Exam/Review of Systems Exam Vitals Vital Signs Date Temp Pulse Resp B/P (MAP) Pulse Ox O2 O2 Flow FiO2 Time Delivery Rate 07/27/18 82 12 105/82 99 Mechanical 06:00 (90) Ventilator 07/27/18 30 05:00 07/27/18 97.6 04:00 Intake and Output 07/26/18 07/26/18 07/27/18 1515:00 23:00 07:00 IntakeIntake Total 880 ml 1239 ml 470 ml OutputOutput Total 1700 ml BalanceBalance -820 ml 1239 ml 470 ml Exam H ENT exam; supple neck, no JVD. No lymphadenopathy. Midline trachea. No thyromegaly. Orally intubated. Dentition is fair. No neck masses. There is very minimal left periorbital edema. Chest exam; diminished but clear breath sounds. S1-S2 audible, no murmurs. Paced rhythm. Pacemaker in left chest wall. Abdomen exam; soft, no organomegaly. Bowel sounds audible. Nondistended. Extremity exam; trace edema with patchy ecchymosis. INSPECTOR FIBROUS WALLBOARD exam; patient remains unresponsive. Results Result Diagram: 07/27/18 0441 07/27/18 0441 Results 24hrs Laboratory Tests Test 07/26/18 13:02 07/26/18 17:13 07/26/18 19:54 07/26/18 21:16 Bedside Glucose 110 114 153 Potassium Level 3.3 L Test 07/27/18 00:09 07/27/18 04:02 07/27/18 04:41 Bedside Glucose 102 137 White Blood Count 4.3 #L Red Blood Count 3.12 L Hemoglobin 10.1 L Hematocrit 30.9 L Mean Corpuscular 99.0 Volume Mean Corpuscular 32.4 Hemoglobin Mean Corpuscular 32.7 Hemoglobin Concent Red Cell 26.6 H Distribution Width Platelet Count 29 #*L Mean Platelet 12.5 H Volume Immature 15.300 H Granulocytes % Neutrophils % 47.0 Segmented 27 L Neutrophils % (Manual) Band Neutrophils % 36 H (Manual) Lymphocytes % 18.5 Lymphocytes % 19 (Manual) Reactive 2 H Lymphocytes % (Manual) Monocytes % 19.0 H Monocytes % 11 (Manual) Eosinophils % 0.0 Basophils % 0.2 Metamyelocytes % 3 H (manual) Myelocytes % 1 H (Manual) Promyelocytes % 1 H (Manual) Nucleated Red 108 H Blood Cells % Immature 0.660 H Granulocytes # Neutrophils # 2.0 Neutrophils # 1.2 L (Manual) Band Neutrophils # 1.5 H Lymphocytes 0.8 (Manual) Lymphocytes # 0.8 Reactive 0.0 Lymphocytes # Monocytes # 0.8 Monocytes # 0.4 (Manual) Eosinophils # 0.0 Basophils # 0.0 Metamyelocytes # 0.1 H Myelocytes # 0.0 Promyelocytes # 0.0 Nucleated Red 1.7 H Blood Cells # Platelet Estimate SIG DECREASED Polychromasia 1+ Poikilocytosis 3+ Anisocytosis 3+ Macrocytosis 2+ Target Cells 1+ Sodium Level 138 Potassium Level 4.2 Chloride Level 94 L Carbon Dioxide 18 L Level Anion Gap 26 H Blood Urea 22 H Nitrogen Creatinine 1.61 H Est Glomerular 38 L Filtrat Rate mL/min Glucose Level 125 Calcium Level 7.6 L Phosphorus Level 2.6 Magnesium Level 1.8 Ammonia 28 Lipase 433 H Complement C3 < 40 L Complement C4 < 8 L Medications Medication Current Medications Lorazepam (Ativan) 0.5 mg Q6H PRN IV .ANXIETY; Start 07/22/18 at 10:30 Ondansetron HCl (Zofran Inj) 4 mg Q6H PRN IV NAUSEA/VOMITING; Start 07/22/18 at 10:30 Aspirin (Aspirin) 81 mg DAILY PO ; Start 07/23/18 at 09:00; Status Hold Vancomycin HCl (Vanco Iv Per Pharmacy) VANCOMYCIN PER PHARMACY PER PROTOCOL XX ; Start 07/22/18 at 10:30 Multivit/Ca Carb/ B Cmplx/FA/Prenat (Lalita-Abigail) 1 tab DAILY PO Last ad ministered on 07/26/18at 09:15; Admin Dose 1 TAB; Start 07/23/18 at 09:00 Phenylephrine HCl 250 ml @ 75 mls/hr TITRATE IV ; Start 07/22/18 at 12:00 Acetaminophen (Tylenol Supp) 650 mg Q4H PRN ND TEMP > 37C; Start 07/22/18 at 12:30 Acetaminophen (Tylenol Liquid) 650 mg Q4H PRN PO TEMP > 37C; Start 07/22/18 at 12:30 Meperidine HCl (Demerol) 12.5 mg Q4H PRN IV POST OPERATIVE SHIVERING; Start 07/22/18 at 12:30 Meperidine HCl (Demerol) 25 mg Q4H PRN IV POST OPERATIVE SHIVERING; Start 07/22/18 at 12:30 Eye Lubricant (Akwa Oint) 1 applic Q6 BOTH EYES Last administered on 07/27/18at 05:44; Admin Dose 1 APPLIC; Start 07/22/18 at 18:00 Eye Lubricant (Artificial Tears Oph) 2 drop Q6 BOTH EYES Last administered on 07/27/18at 05:44; Admin Dose 2 DROP; Start 07/22/18 at 18:00 Norepinephrine 250 ml @ 1.875 mls/ hr TITRATE IV Last administered on 07/23/18at 01:01; Admin Dose 22.5 MLS/HR; Start 07/22/18 at 13:00 Docusate Sodium (Colace Liquid Cup) 100 mg BID NGT Last administered on 07/26/18 21:19; Admin Dose 100 MG; Start 07/22/18 at 22:00 Midazolam HCl 50 ml @ 1 mls/hr TITRATE IV Last administered on 07/25/18 05:18; Admin Dose 3 MLS/HR; Start 07/23/18 at 02:00 Famotidine (Pepcid) 20 mg DAILY NGT Last administered on 5/25/19at 09:15; Admin Dose 20 MG; Start 07/23/18 at 12:00 Diagnostic Test (Pha) (Accu-Chek) 1 ea Q4 XX Last administered on 07/27/18at 04:04; Admin Dose 1 EA; Start 07/23/18 at 13:00 Albumin Human 100 ml @ 100 mls/hr WITH DIALYSIS PRN IV SBP <90 DURING DIALYSIS Last administered on 07/23/18 18:07; Admin Dose 100 MLS/HR; Start 07/23/18 at 18:00 Miscellaneous Information (* Miscellaneous Pharmacy Order) Treatment of Hypoglycemia: 1.BG 51... Per protocol XX ; Start 07/24/18 at 02:00 Miscellaneous Information 1 ea NOTE XX ; Start 07/24/18 at 02:30 Glucose (Glutose) 15 gm Q15M PRN PO DECREASED GLUCOSE; Start 07/24/18 at 02:30 Glucose (Glutose) 22.5 gm Q15M PRN PO DECREASED GLUCOSE; Start 07/24/18 at 02:30 Dextrose (D50w Syringe) 25 ml Q15M PRN IV DECREASED GLUCOSE Last administered on 07/25/18at 23:07; Admin Dose 25 ML; Start 07/24/18 at 02:30 Dextrose (D50w Syringe) 50 ml Q15M PRN IV DECREASED GLUCOSE; Start 07/24/18 at 02:30 Glucagon (Glucagen) 1 mg Q15M PRN IM DECREASED GLUCOSE; Start 07/24/18 at 02:30 Glucose (Glutose) 15 gm Q15M PRN BUCCAL DECREASED GLUCOSE; Start 07/24/18 at 02:30 Cefepime HCl 50 ml @ 100 mls/hr DAILY IVPB Last administered on 07/26/18at 11:44; Admin Dose 100 MLS/HR; Start 07/24/18 at 12:30 Metronidazole (Flagyl) 500 mg Q8 PO Last administered on 07/27/18at 05:44; Admin Dose 500 MG; Start 07/24/18 at 13:00 Total Parenteral Nutrition 1,000 ml @ 40 mls/hr Q24H IV ; Start 07/24/18 at 12:00; Status UNV Calcium Acetate (Phoslo) 1,334 mg TID NGT Last administered on 07/26/18at 21:19; Admin Dose 1,334 MG; Start 07/25/18 at 13:00 Dextrose/Sodium Chloride 1,000 ml @ 40 mls/hr Q24H IV Last administered on 07/27/18at 04:05; Admin Dose 40 MLS/HR; Start 07/25/18 at 23:30 Hydrocortisone (Solu-Cortef) 200 mg Q8 IV Last administered on 07/27/18at 05:44; Admin Dose 200 MG; Start 07/26/18 at 06:00 AYSE CAMARGO July 27, 2018 09:01
[2018-07-27] MEDS: CALCIUM ACETATE 667 MG CAP NGT SCH ×3 (09:56→20:59)
[2018-07-27] MEDS: CEFEPIME 1GM/50 ML (PMX) 50 ML IVPB SCH (09:56)
[2018-07-27] MEDS: FAMOTIDINE 20 MG TAB NGT SCH (09:56)
[2018-07-27] MEDS: DOCUSATE SODIUM 10 MG/ML (10ML CUP) NGT SCH ×2 (09:56→20:59)
[2018-07-27] MEDS: MULTIVIT/CA CARB/B CMPLX/FA TAB PO SCH (09:56)
--- NOTE | 2018-07-27 10:02 | CONS ---
Assessment/Plan Assessment/Plan Hospital Course (Demo Recall) Impression: PEA cardiac arrest Acute CVA, with cerebellar bilateral hemorrhages Cardiomyopathy with left ventricular ejection fraction 45% Pacemaker dependent End-stage renal disease on hemodialysis Respiratory failure status post intubation Recommendations: Low/normal bp, will continue to hold antihypertensives Antibiotics per ID No ASA due to brain bleed Vent management per pulmonary Dr. Woodard to return Saturday Consultation Date/Type/Reason Admit Date/Time July 22, 2018 at 09:09 Initial Consult Date 07/23/18 Type of Consult Cardiology Requesting Provider: TRINITY EELNA Date/Time of Note DATE: 07/27/18 TIME: 09:57 24 HR Interval Summary Free Text/Dictation No events, patient remains intubated, unresponsive Subjective hx not possible: pt non-verbal, pt critical status Exam/Review of Systems Vital Signs Vitals Vital Signs Date Temp Pulse Resp B/P (MAP) Pulse Ox O2 O2 Flow FiO2 Time Delivery Rate 07/27/18 82 12 105/82 99 Mechanical 06:00 (90) Ventilator 07/27/18 30 05:00 07/27/18 97.6 04:00 Intake and Output 07/26/18 07/26/18 07/27/18 1515:00 23:00 07:00 IntakeIntake Total 880 ml 1239 ml 470 ml OutputOutput Total 1700 ml BalanceBalance -820 ml 1239 ml 470 ml Exam Constitutional: frail Psych: other (unresponsive) Head: normocephalic, atraumatic Eyes: nl lids ENMT: nl external ears & nose, intubated, other (tongue swollen) Neck: No bruits Respiratory: clear to auscultation Cardiovascular: regular rate and rhythm; No murmurs/extra sounds Gastrointestinal: soft, nl liver, spleen, non-tender, distended Musculoskeletal: nl extremities to inspection Extremities: edema (2+ both legs) Neurological: unresponsive Skin: nl turgor Labs Result Diagram: 07/27/1844007/27/18440 Results 24hrs Laboratory Tests Test 07/26/18 13:02 07/26/18 17:13 07/26/18 19:54 07/26/18 21:16 Bedside Glucose 110 114 153 Potassium Level 3.3 L Test 07/27/18 00:09 07/27/18 04:02 07/27/18 04:41 Bedside Glucose 102 137 White Blood Count 4.3 #L Red Blood Count 3.12 L Hemoglobin 10.1 L Hematocrit 30.9 L Mean Corpuscular 99.0 Volume Mean Corpuscular 32.4 Hemoglobin Mean Corpuscular 32.7 Hemoglobin Concent Red Cell 26.6 H Distribution Width Platelet Count 29 #*L Mean Platelet 12.5 H Volume Immature 15.300 H Granulocytes % Neutrophils % 47.0 Segmented 27 L Neutrophils % (Manual) Band Neutrophils % 36 H (Manual) Lymphocytes % 18.5 Lymphocytes % 19 (Manual) Reactive 2 H Lymphocytes % (Manual) Monocytes % 19.0 H Monocytes % 11 (Manual) Eosinophils % 0.0 Basophils % 0.2 Metamyelocytes % 3 H (manual) Myelocytes % 1 H (Manual) Promyelocytes % 1 H (Manual) Nucleated Red 108 H Blood Cells % Immature 0.660 H Granulocytes # Neutrophils # 2.0 Neutrophils # 1.2 L (Manual) Band Neutrophils # 1.5 H Lymphocytes 0.8 (Manual) Lymphocytes # 0.8 Reactive 0.0 Lymphocytes # Monocytes # 0.8 Monocytes # 0.4 (Manual) Eosinophils # 0.0 Basophils # 0.0 Metamyelocytes # 0.1 H Myelocytes # 0.0 Promyelocytes # 0.0 Nucleated Red 1.7 H Blood Cells # Platelet Estimate SIG DECREASED Polychromasia 1+ Poikilocytosis 3+ Anisocytosis 3+ Macrocytosis 2+ Target Cells 1+ Sodium Level 138 Potassium Level 4.2 Chloride Level 94 L Carbon Dioxide 18 L Level Anion Gap 26 H Blood Urea 22 H Nitrogen Creatinine 1.61 H Est Glomerular 38 L Filtrat Rate mL/min Glucose Level 125 Calcium Level 7.6 L Phosphorus Level 2.6 Magnesium Level 1.8 Ammonia 28 Lipase 433 H Complement C3 < 40 L Complement C4 < 8 L Imaging Imaging Telemetry reviewed, she is paced Medications Medications Current Medications Lorazepam (Ativan) 0.5 mg Q6H PRN IV .ANXIETY; Start 07/22/18 at 10:30 Ondansetron HCl (Zofran Inj) 4 mg Q6H PRN IV NAUSEA/VOMITING; Start 07/22/18 at 10:30 Aspirin (Aspirin) 81 mg DAILY PO ; Start 07/23/18 at 09:00; Status Hold Vancomycin HCl (Vanco Iv Per Pharmacy) VANCOMYCIN PER PHARMACY PER PROTOCOL XX ; Start 07/22/18 at 10:30 Multivit/Ca Carb/ B Cmplx/FA/Prenat (Lalita-Abigail) 1 tab DAILY PO Last administered on 07/26/18at 09:15; Admin Dose 1 TAB; Start 07/23/18 at 09:00 Phenylephrine HCl 250 ml @ 75 mls/hr TITRATE IV ; Start 07/22/18 at 12:00 Acetaminophen (Tylenol Supp) 650 mg Q4H PRN NM TEMP > 37C; Start 07/22/18 at 12:30 Acetaminophen (Tylenol Liquid) 650 mg Q4H PRN PO TEMP > 37C; Start 07/22/18 at 12:30 Meperidine HCl (Demerol) 12.5 mg Q4H PRN IV POST OPERATIVE SHIVERING; Start 07/22/18 at 12:30 Meperidine HCl (Demerol) 25 mg Q4H PRN IV POST OPERATIVE SHIVERING; Start 07/22/18 at 12:30 Eye Lubricant (Akwa Oint) 1 applic Q6 BOTH EYES Last administered on 07/27/18at 05:44; Admin Dose 1 APPLIC; Start 07/22/18 at 18:00 Eye Lubricant (Artificial Tears Oph) 2 drop Q6 BOTH EYES Last administered on 07/27/18at 05:44; Admin Dose 2 DROP; Start 07/22/18 at 18:00 Norepinephrine 250 ml @ 1.875 mls/ hr TITRATE IV Last administered on 07/23/18at 01:01; Admin Dose 22.5 MLS/HR; Start 07/22/18 at 13:00 Docusate Sodium (Colace Liquid Cup) 100 mg BID NGT Last administered on 07/26/18 21:19; Admin Dose 100 MG; Start 07/22/18 at 22:00 Midazolam HCl 50 ml @ 1 mls/hr TITRATE IV Last administered on 07/25/18 05:18; Admin Dose 3 MLS/HR; Start 07/23/18 at 02:00 Famotidine (Pepcid) 20 mg DAILY NGT Last administered on 07/26/18 09:15; Admin Dose 20 MG; Start 07/23/18 at 12:00 Diagnostic Test (Pha) (Accu-Chek) 1 ea Q4 XX Last administered on 07/27/18at 04:04; Admin Dose 1 EA; Start 07/23/18 at 13:00 Albumin Human 100 ml @ 100 mls/hr WITH DIALYSIS PRN IV SBP <90 DURING DIALYSIS Last administered on 07/23/18at 18:07; Admin Dose 100 MLS/HR; Start 07/23/18 at 18:00 Miscellaneous Information (* Miscellaneous Pharmacy Order) Treatment of Hypoglycemia: 1.BG 51... Per protocol XX ; Start 07/24/18 at 02:00 Miscellaneous Information 1 ea NOTE XX ; Start 07/24/18 at 02:30 Glucose (Glutose) 15 gm Q15M PRN PO DECREASED GLUCOSE; Start 07/24/18 at 02:30 Glucose (Glutose) 22.5 gm Q15M PRN PO DECREASED GLUCOSE; Start 07/24/18 at 02:30 Dextrose (D50w Syringe) 25 ml Q15M PRN IV DECREASED GLUCOSE Last administered on 07/25/18at 23:07; Admin Dose 25 ML; Start 07/24/18 at 02:30 Dextrose (D50w Syringe) 50 ml Q15M PRN IV DECREASED GLUCOSE; Start 07/24/18 at 02:30 Glucagon (Glucagen) 1 mg Q15M PRN IM DECREASED GLUCOSE; Start 07/24/18 at 02:30 Glucose (Glutose) 15 gm Q15M PRN BUCCAL DECREASED GLUCOSE; Start 07/24/18 at 02:30 Cefepime HCl 50 ml @ 100 mls/hr DAILY IVPB Last administered on 07/26/18at 11:44; Admin Dose 100 MLS/HR; Start 07/24/18 at 12:30 Metronidazole (Flagyl) 500 mg Q8 PO Last administered on 07/27/18at 05:44; Admin Dose 500 MG; Start 07/24/18 at 13:00 Total Parenteral Nutrition 1,000 ml @ 40 mls/hr Q24H IV ; Start 07/24/18 at 12:00; Status UNV Calcium Acetate (Phoslo) 1,334 mg TID NGT Last administered on 07/26/18at 21:19; Admin Dose 1,334 MG; Start 07/25/18 at 13:00 Dextrose/Sodium Chloride 1,000 ml @ 40 mls/hr Q24H IV Last administered on 07/27/18at 04:05; Admin Dose 40 MLS/HR; Start 07/25/18 at 23:30 Hydrocortisone (Solu-Cortef) 200 mg Q8 IV Last administered on 07/27/18at 05:44; Admin Dose 200 MG; Start 07/26/18 at 06:00 AMINATA SOLIMAN July 27, 2018 10:01
--- NOTE | 2018-07-27 10:49 | CONS ---
Assessment/Plan Assessment/Plan Hospital Course (Demo Recall) ID PROGRESS NOTE CURRENT ABX: DAY #=> Vanco IV + Cefepime + Flagyl 07/27/18 0441 07/27/18 0441 Hx of Present Illness * 27-year-old woman with history of end-stage kidney disease hemodialysis dependent was brought in by EMS from home for confusion and altered mental status. Subsequently went into cardiac arrest with ROSC. History of pulmonary edema and heart failure with EF of 45%, end-stage kidney disease hemodialysis dependent, history of heart block with pacemaker, hypertension, anemia of chronic disease, blind, thrombocytopenia * History of Surgery: Yes (AVF PLACEMENT 2014, GRAFT 2014, PACEMAKER 2006 ) 24H INTERVAL SUMMARY * No changes -- unresponsive acute anoxic brain injurty -- Encephalopathic on the Vent - parents are present * Indwelling: Endotracheal tube, NG tube, right subclavian triple-lumen catheter, right upper extremity AV fistula, PPM IMAGING * 07/26/18 CXR: IMPRESSION:1. Cardiomegaly.2. Haziness in the perihilar and lower lung regions may all be due to pulmonary edema however rule out inflammatory infiltrates.3. Probable mild pulmonary vascular congestion.4. Tiny right pleural effusion. * 07/27/[address]: * CT of the brain again demonstrates hemorrhagic conversion of bilateral cerebellar infarcts, stable. No new bleeding is seen. * There is mild narrowing of the fourth ventricle secondary to cerebellar edema however no evidence of hydrocephalous is present. * Volume loss with microvascular changes are again seen within the cerebral hemispheres, stable. * Stable appearance of bilateral sphenoid sinusitis. MICRO/OTHER * 07/22/18 BCX (-); (-)MRSA nares PHYSICAL EXAMINATION: GENERAL: VSS, Critically ill on the VEnt HEENT: AT, NC, puffy eyes NECK: WNL CHEST: Coarse BS ABD: Soft, ND EXTREMITIES: Puffy edema, dry,cyanotic SKIN: No rash, no diaphoresis ID ASSESSMENT 27 yo F admit with: 1. Severe sepsis, status post shock 2. S/p PEA arrest 3. Acute CVA 4. Acute on chronic sinusitis 5. Colitis 6. S/p MSSA bacteremia per report from [facility] * Dx Endocarditis and placed on Rifampin + Ceftriaxone 7. ESRD 8. SZ do 9. CAD/Hx PPM 10. Anemia 11. Thrombocytopenia 12. DM 13. Increased lipase==> no evidence of pancreatitis on the CAT scan (-)MRSA Nares ABX ALLERGIES: QUINOLONES INVASIVES: PIV CURRENT ABX: DAY # => Vanco IV + Cefepime + Flagyl ID RECOMMENDATIONS/PLAN: 1. Continue current ABX and supportive care - parents given update -- no changes to ABX at this time 2. I will be covering for "[employer]" with Dr. Garcia over the 3-day weekend. . Consultation Date/Type/Reason Admit Date/Time July 22, 2018 at 09:09 Initial Consult Date 07/23/18 Requesting Provider: TRINITY ELENA Date/Time of Note DATE: 07/27/18 TIME: 10:42 Exam/Review of Systems Exam Vitals Vital Signs Date Temp Pulse Resp B/P (MAP) Pulse Ox O2 O2 Flow FiO2 Time Delivery Rate 07/27/18 82 12 105/82 99 Mechanical 06:00 (90) Ventilator 07/27/18 30 05:00 07/27/18 97.6 04:00 Intake and Output 07/26/18 07/26/18 07/27/18 1515:00 23:00 07:00 IntakeIntake Total 880 ml 1239 ml 470 ml OutputOutput Total 1700 ml BalanceBalance -820 ml 1239 ml 470 ml Results Result Diagram: 07/27/18 0441 07/27/18 0441 Results 24hrs Laboratory Tests Test 07/26/18 13:02 07/26/18 17:13 07/26/18 19:54 07/26/18 21:16 Bedside Glucose 110 114 153 Potassium Level 3.3 L Test 07/27/18 00:09 07/27/18 04:02 07/27/18 04:41 07/27/18 09:57 Bedside Glucose 102 137 119 White Blood Count 4.3 #L Red Blood Count 3.12 L Hemoglobin 10.1 L Hematocrit 30.9 L Mean Corpuscular 99.0 Volume Mean Corpuscular 32.4 Hemoglobin Mean Corpuscular 32.7 Hemoglobin Concent Red Cell 26.6 H Distribution Width Platelet Count 29 #*L Mean Platelet 12.5 H Volume Immature 15.300 H Granulocytes % Neutrophils % 47.0 Segmented 27 L Neutrophils % (Manual) Band Neutrophils % 36 H (Manual) Lymphocytes % 18.5 Lymphocytes % 19 (Manual) Reactive 2 H Lymphocytes % (Manual) Monocytes % 19.0 H Monocytes % 11 (Manual) Eosinophils % 0.0 Basophils % 0.2 Metamyelocytes % 3 H (manual) Myelocytes % 1 H (Manual) Promyelocytes % 1 H (Manual) Nucleated Red 108 H Blood Cells % Immature 0.660 H Granulocytes # Neutrophils # 2.0 Neutrophils # 1.2 L (Manual) Band Neutrophils # 1.5 H Lymphocytes 0.8 (Manual) Lymphocytes # 0.8 Reactive 0.0 Lymphocytes # Monocytes # 0.8 Monocytes # 0.4 (Manual) Eosinophils # 0.0 Basophils # 0.0 Metamyelocytes # 0.1 H Myelocytes # 0.0 Promyelocytes # 0.0 Nucleated Red 1.7 H Blood Cells # Platelet Estimate SIG DECREASED Polychromasia 1+ Poikilocytosis 3+ Anisocytosis 3+ Macrocytosis 2+ Target Cells 1+ Sodium Level 138 Potassium Level 4.2 Chloride Level 94 L Carbon Dioxide 18 L Level Anion Gap 26 H Blood Urea 22 H Nitrogen Creatinine 1.61 H Est Glomerular 38 L Filtrat Rate mL/min Glucose Level 125 Calcium Level 7.6 L Phosphorus Level 2.6 Magnesium Level 1.8 Ammonia 28 Lipase 433 H Complement C3 < 40 L Complement C4 < 8 L Medications Medication Current Medications Lorazepam (Ativan) 0.5 mg Q6H PRN IV .ANXIETY; Start 07/22/18 at 10:30 Ondansetron HCl (Zofran Inj) 4 mg Q6H PRN IV NAUSEA/VOMITING; Start 07/22/18 at 10:30 Aspirin (Aspirin) 81 mg DAILY PO ; Start 07/23/18 at 09:00; Status Hold Vancomycin HCl (Vanco Iv Per Pharmacy) VANCOMYCIN PER PHARMACY PER PROTOCOL XX ; Start 07/22/18 at 10:30 Multivit/Ca Carb/ B Cmplx/FA/Prenat (Lalita-Abigail) 1 tab DAILY PO Last administered on 07/27/18at 09:56; Admin Dose 1 TAB; Start 07/23/18 at 09:00 Phenylephrine HCl 250 ml @ 75 mls/hr TITRATE IV ; Start 07/22/18 at 12:00 Acetaminophen (Tylenol Supp) 650 mg Q4H PRN [place] TEMP > 37C; Start 07/22/18 at 12:30 Acetaminophen (Tylenol Liquid) 650 mg Q4H PRN PO TEMP > 37C; Start 07/22/18 at 12:30 Meperidine HCl (Demerol) 12.5 mg Q4H PRN IV POST OPERATIVE SHIVERING; Start 07/22/18 at 12:30 Meperidine HCl (Demerol) 25 mg Q4H PRN IV POST OPERATIVE SHIVERING; Start 07/22/18 at 12:30 Eye Lubricant (Akwa Oint) 1 applic Q6 BOTH EYES Last administered on 07/27/18 05:44; Admin Dose 1 APPLIC; Start 07/22/18 at 18:00 Eye Lubricant (Artificial Tears Oph) 2 drop Q6 BOTH EYES Last administered on 07/27/18 05:44; Admin Dose 2 DROP; Start 07/22/18 at 18:00 Norepinephrine 250 ml @ 1.875 mls/ hr TITRATE IV Last administered on 9at 01:01; Admin Dose 22.5 MLS/HR; Start 07/22/18 at 13:00 Docusate Sodium (Colace Liquid Cup) 100 mg BID NGT Last administered on 07/27/18 09:56; Admin Dose 100 MG; Start 07/22/18 at 22:00 Midazolam HCl 50 ml @ 1 mls/hr TITRATE IV Last administered on 07/25/18 05:18; Admin Dose 3 MLS/HR; Start 07/23/18 at 02:00 Famotidine (Pepcid) 20 mg DAILY NGT Last administered on 07/27/18 09:56; Admin Dose 20 MG; Start 07/23/18 at 12:00 Diagnostic Test (Pha) (Accu-Chek) 1 ea Q4 XX Last administered on 07/27/18 09:58; Admin Dose 1 EA; Start 07/23/18 at 13:00 Albumin Human 100 ml @ 100 mls/hr WITH DIALYSIS PRN IV SBP <90 DURING DIALYSIS Last administered on 07/23/18 18:07; Admin Dose 100 MLS/HR; Start 07/23/18 at 18:00 Miscellaneous Information (* Miscellaneous Pharmacy Order) Treatment of Hy poglycemia: 1.BG 51... Per protocol XX ; Start 07/24/18 at 02:00 Miscellaneous Information 1 ea NOTE XX ; Start 07/24/18 at 02:30 Glucose (Glutose) 15 gm Q15M PRN PO DECREASED GLUCOSE; Start 07/24/18 at 02:30 Glucose (Glutose) 22.5 gm Q15M PRN PO DECREASED GLUCOSE; Start 07/24/18 at 02:30 Dextrose (D50w Syringe) 25 ml Q15M PRN IV DECREASED GLUCOSE Last administered on 07/25/18at 23:07; Admin Dose 25 ML; Start 07/24/18 at 02:30 Dextrose (D50w Syringe) 50 ml Q15M PRN IV DECREASED GLUCOSE; Start 07/24/18 at 02:30 Glucagon (Glucagen) 1 mg Q15M PRN IM DECREASED GLUCOSE; Start 07/24/18 at 02:30 Glucose (Glutose) 15 gm Q15M PRN BUCCAL DECREASED GLUCOSE; Start 07/24/18 at 02:30 Cefepime HCl 50 ml @ 100 mls/hr DAILY IVPB Last administered on 07/27/18at 09:56; Admin Dose 100 MLS/HR; Start 07/24/18 at 12:30 Metronidazole (Flagyl) 500 mg Q8 PO Last administered on 07/27/18at 05:44; Admin Dose 500 MG; Start 07/24/18 at 13:00 Total Parenteral Nutrition 1,000 ml @ 40 mls/hr Q24H IV ; Start 07/24/18 at 12:00; Status UNV Calcium Acetate (Phoslo) 1,334 mg TID NGT Last administered on 07/27/18at 09:56; Admin Dose 1,334 MG; Start 07/25/18 at 13:00 Dextrose/Sodium Chloride 1,000 ml @ 40 mls/hr Q24H IV Last administered on 07/27/18at 04:05; Admin Dose 40 MLS/HR; Start 07/25/18 at 23:30 Hydrocortisone (Solu-Cortef) 200 mg Q8 IV Last administered on 07/27/18at 05:44; Admin Dose 200 MG; Start 07/26/18 at 06:00 GRICEL DAVE NP July 27, 2018 10:49
--- NOTE | 2018-07-27 11:10 | CONS ---
Assessment/Plan Assessment/Plan Hospital Course 27 yo F with multiple significant comorbidities who was admitted to ICU following a cardiac arrest. TTM was deferred d/t her improvement in neurologic status. CTH on 07/24 was notable for acute BL cerebellar infarcts... for which neurology is consulted. Her labs suggest DIC, which is certainly the underlying precipitant. Repeat CTH is stable. MRI brain is presently contraindicated d/t pacemaker Echo is unrevealing. LDL 20; haptoglobin <8 On 07/26, the pt was noted to have a worsening mental status. A STAT HCT was notable for hemorrhagic transformation of the cerebellar infarcts. Repeat HCT on 07/27 was stable. P: Hold all anticoagulation/antiplatelet therapy Maintain SBP < 160 CTA H/N to evaluate posterior circulation when medically able Consider complete hypercoagulability panel Cont medical management per primary Cont to hold sedating medications where possible PT/OT/ST when able Will follow clinically, to recommend neurologic studies, as necessary Consultation Date/Type/Reason Admit Date/Time July 22, 2018 at 09:09 Type of Consult Neurology Reason for Consultation acute CVA Requesting Provider: TRINITY ELENA Date/Time of Note DATE: 07/27/18 TIME: 11:10 24 HR Interval Summary Free Text/Dictation Continues critical care. S/p repeat HCT. Evaluated by neurosurgery who didn't think that a surgical intervention was necessary or safe at this time. Pt also had episode of VT overnight. Exam Vital Signs Vitals Vital Signs Date Temp Pulse Resp B/P (MAP) Pulse Ox O2 O2 Flow FiO2 Time Delivery Rate 07/27/18 82 12 105/82 99 Mechanical 06:00 (90) Ventilator 07/27/18 30 05:00 07/27/18 97.6 04:00 Intake and Output 07/26/18 07/26/18 07/27/18 1515:00 23:00 07:00 IntakeIntake Total 880 ml 1239 ml 470 ml OutputOutput Total 1700 ml BalanceBalance -820 ml 1239 ml 470 ml Exam PE: Gen Appearance: No Apparent Distress HEENT: Intubated Cardiovascular: Regular rate Abdomen: Soft Extremities: Dry NE: The patient was comatose. Cranial nerve examination was limited by mental status. Pupils were equal and sluggishly reactive to light. There was no afferent pupillary defect. Funduscopic examination was limited. Face was grossly symmetric, w/ present cor adria and cough reflexes. Tone was normal. Muscle bulk was normal. I did not see fasciculations. The patient did not withdraw her extremities to noxious stimuli. Coordination and gait testing was limited by mental status. Arm and leg reflexes were within normal limits and symmetric. Coe's sign was absent. Plantar responses were flexor. LUCIA CARRILLO NP July 27, 2018 11:10 SHELBY BLOCK July 28, 2018 05:19
--- NOTE | 2018-07-27 11:16 | CONS ---
Assessment/Plan Assessment/Plan Assessment/Plan (Daily) IMPRESSION: 1. Sepsis, multifocal pneumonia. 2. Vent dependent respiratory failure. 3. End-stage renal disease on dialysis. 4. Severe thrombocytopenia. 5. Increased lipase, but there is no evidence of pancreatitis on the CAT scan. Symptom analysis cannot be done regarding the abdominal pain. 6. Elevated troponin. 7. Paroxysmal atrial fibrillation. 8. Status post pacemaker AICD. 9. Anemia, megaloblastic. 10. Malnutrition. 11. History of methicillin-susceptible Staphylococcus aureus bacteremia. There was no evidence of any vegetation on ROSANNE and the patient's ejection fraction is 45%. 12. Coagulopathy. 13. Jaundice. 14. Thrombocytopenia improved Plan continue tube feed via NG tube Continue all supportive care Continue antibiotics as per the ID Monitor LFT and PT PTT lipase improving Above d/w with mother and daughter on phone Consultation Date/Type/Reason Admit Date/Time July 22, 2018 at 09:09 Initial Consult Date 07/23/18 Type of Consult GI Requesting Provider: TRINITY ELENA Date/Time of Note DATE: 07/27/18 TIME: 11:14 24 HR Interval Summary Subjective hx not possible: pt non-verbal, pt critical status Exam/Review of Systems Exam Vitals Vital Signs Date Temp Pulse Resp B/P (MAP) Pulse Ox O2 O2 Flow FiO2 Time Delivery Rate 07/27/18 82 12 105/82 99 Mechanical 06:00 (90) Ventilator 07/27/18 30 05:00 07/27/18 97.6 04:00 Intake and Output 07/26/18 07/26/18 07/27/18 1515:00 23:00 07:00 IntakeIntake Total 880 ml 1239 ml 470 ml OutputOutput Total 1700 ml BalanceBalance -820 ml 1239 ml 470 ml Constitutional: non-verbal Head: normocephalic, atraumatic Eyes: nl conjunctiva, nl lids ENMT: nl external ears & nose, nl lips & teeth, nl nasal mucosa & septum Neck: supple, non-tender Respiratory: clear to auscultation, normal air movement Cardiovascular: regular rate and rhythm, nl pulses Gastrointestinal: soft, non-tender, bowel sounds Results Result Diagram: 07/27/18 0441 07/27/181 Results 24hrs Laboratory Tests Test 07/26/18 13:02 07/26/18 17:13 07/26/18 19:54 07/26/18 21:16 Bedside Glucose 110 114 153 Potassium Level 3.3 L Test 07/27/18 00:09 07/27/18 04:02 07/27/18 04:41 07/27/18 09:57 Bedside Glucose 102 137 119 White Blood Count 4.3 #L Red Blood Count 3.12 L Hemoglobin 10.1 L Hematocrit 30.9 L Mean Corpuscular 99.0 Volume Mean Corpuscular 32.4 Hemoglobin Mean Corpuscular 32.7 Hemoglobin Concent Red Cell 26.6 H Distribution Width Platelet Count 29 #*L Mean Platelet 12.5 H Volume Immature 15.300 H Granulocytes % Neutrophils % 47.0 Segmented 27 L Neutrophils % (Manual) Band Neutrophils % 36 H (Manual) Lymphocytes % 18.5 Lymphocytes % 19 (Manual) Reactive 2 H Lymphocytes % (Manual) Monocytes % 19.0 H Monocytes % 11 (Manual) Eosinophils % 0.0 Basophils % 0.2 Metamyelocytes % 3 H (manual) Myelocytes % 1 H (Manual) Promyelocytes % 1 H (Manual) Nucleated Red 108 H Blood Cells % Immature 0.660 H Granulocytes # Neutrophils # 2.0 Neutrophils # 1.2 L (Manual) Band Neutrophils # 1.5 H Lymphocytes 0.8 (Manual) Lymphocytes # 0.8 Reactive 0.0 Lymphocytes # Monocytes # 0.8 Monocytes # 0.4 (Manual) Eosinophils # 0.0 Basophils # 0.0 Metamyelocytes # 0.1 H Myelocytes # 0.0 Promyelocytes # 0.0 Nucleated Red 1.7 H Blood Cells # Platelet Estimate SIG DECREASED Polychromasia 1+ Poikilocytosis 3+ Anisocytosis 3+ Macrocytosis 2+ Target Cells 1+ Sodium Level 138 Potassium Level 4.2 Chloride Level 94 L Carbon Dioxide 18 L Level Anion Gap 26 H Blood Urea 22 H Nitrogen Creatinine 1.61 H Est Glomerular 38 L Filtrat Rate mL/min Glucose Level 125 Calcium Level 7.6 L Phosphorus Level 2.6 Magnesium Level 1.8 Ammonia 28 Lipase 433 H Complement C3 < 40 L Complement C4 < 8 L Medications Medication Current Medications Lorazepam (Ativan) 0.5 mg Q6H PRN IV .ANXIETY; Start 07/22/18 at 10:30 Ondansetron HCl (Zofran Inj) 4 mg Q6H PRN IV NAUSEA/VOMITING; Start 07/22/18 at 10:30 Aspirin (Aspirin) 81 mg DAILY PO ; Start 07/23/18 at 09:00; Status Hold Vancomycin HCl (Vanco Iv Per Pharmacy) VANCOMYCIN PER PHARMACY PER PROTOCOL XX ; Start 07/22/18 at 10:30 Multivit/Ca Carb/ B Cmplx/FA/Prenat (Lalita-Abigail) 1 tab DAILY PO Last administered on 07/27/18 09:56; Admin Dose 1 TAB; Start 07/23/18 at 09:00 Phenylephrine HCl 250 ml @ 75 mls/hr TITRATE IV ; Start 07/22/18 at 12:00 Acetaminophen (Tylenol Supp) 650 mg Q4H PRN [place] TEMP > 37C; Start 07/22/18 at 12:30 Acetaminophen (Tylenol Liquid) 650 mg Q4H PRN PO TEMP > 37C; Start 07/22/18 at 12:30 Meperidine HCl (Demerol) 12.5 mg Q4H PRN IV POST OPERATIVE SHIVERING; Start 07/22/18 at 12:30 Meperidine HCl (Demerol) 25 mg Q4H PRN IV POST OPERATIVE SHIVERING; Start 07/22/18 at 12:30 Eye Lubricant (Akwa Oint) 1 applic Q6 BOTH EYES Last administered on 07/27/18at 05:44; Admin Dose 1 APPLIC; Start 07/22/18 at 18:00 Eye Lubricant (Artificial Tears Oph) 2 drop Q6 BOTH EYES Last administered on 07/27/18at 05:44; Admin Dose 2 DROP; Start 07/22/18 at 18:00 Norepinephrine 250 ml @ 1.875 mls/ hr TITRATE IV Last administered on 07/23/18at 01:01; Admin Dose 22.5 MLS/HR; Start 07/22/18 at 13:00 Docusate Sodium (Colace Liquid Cup) 100 mg BID NGT Last administered on 07/27/18 09:56; Admin Dose 100 MG; Start 07/22/18 at 22:00 Midazolam HCl 50 ml @ 1 mls/hr TITRATE IV Last administered on 07/25/18 05:18; Admin Dose 3 MLS/HR; Start 07/23/18 at 02:00 Famotidine (Pepcid) 20 mg DAILY NGT Last administered on 07/27/18 09:56; Admin Dose 20 MG; Start 07/23/18 at 12:00 Diagnostic Test (Pha) (Accu-Chek) 1 ea Q4 XX Last administered on 07/27/18 09:58; Admin Dose 1 EA; Start 07/23/18 at 13:00 Albumin Human 100 ml @ 100 mls/hr WITH DIALYSIS PRN IV SBP <90 DURING DIALYSIS Last administered on 07/23/18 18:07; Admin Dose 100 MLS/HR; Start 07/23/18 at 18:00 Miscellaneous Information (* Miscellaneous Pharmacy Order) Treatment of Hypoglycemia: 1.BG 51... Per protocol XX ; Start 07/24/18 at 02:00 Miscellaneous Information 1 ea NOTE XX ; Start 07/24/18 at 02:30 Glucose (Glutose) 15 gm Q15M PRN PO DECREASED GLUCOSE; Start 07/24/18 at 02:30 Glucose (Glutose) 22.5 gm Q15M PRN PO DECREASED GLUCOSE; Start 07/24/18 at 02:30 Dextrose (D50w Syringe) 25 ml Q15M PRN IV DECREASED GLUCOSE Last administered on 07/25/18 23:07; Admin Dose 25 ML; Start 07/24/18 at 02:30 Dextrose (D50w Syringe) 50 ml Q15M PRN IV DECREASED GLUCOSE; Start 07/24/18 at 02:30 Glucagon (Glucagen) 1 mg Q15M PRN IM DECREASED GLUCOSE; Start 07/24/18 at 02:30 Glucose (Glutose) 15 gm Q15M PRN BUCCAL DECREASED GLUCOSE; Start 07/24/18 at 02:30 Cefepime HCl 50 ml @ 100 mls/hr DAILY IVPB Last administered on 07/27/18 09:56; Admin Dose 100 MLS/HR; Start 07/24/18 at 12:30 Metronidazole (Flagyl) 500 mg Q8 PO Last administered on 07/27/18at 05:44; Admin Dose 500 MG; Start 07/24/18 at 13:00 Total Parenteral Nutrition 1,000 ml @ 40 mls/hr Q24H IV ; Start 07/24/18 at 12:00; Status UNV Calcium Acetate (Phoslo) 1,334 mg TID NGT Last administered on 5/26/19at 09:56; Admin Dose 1,334 MG; Start 07/25/18 at 13:00 Dextrose/Sodium Chloride 1,000 ml @ 40 mls/hr Q24H IV Last administered on 07/27/18at 04:05; Admin Dose 40 MLS/HR; Start 07/25/18 at 23:30 Hydrocortisone (Solu-Cortef) 200 mg Q8 IV Last administered on 07/27/18at 05:44; Admin Dose 200 MG; Start 07/26/18 at 06:00 SIMONE RICHARDS MD July 27, 2018 11:16
--- NOTE | 2018-07-27 12:34 | CONS ---
Assessment/Plan Assessment/Plan Hospital Course (Demo Recall) 1. Status post code blue, unresponsive, could be secondary to cardiac in origin/rule out embolic infarct to the brain/hypoglycemia/septic shock. 2. Septic shock with history of endocarditis, source questionable. This patient had a pacemaker in the chest and also has AV graft. bld cx pending so far, [facility] 3. Severe anion gap acidosis secondary to hypovolemia/ septic shock with lactic acidosis, resolved 4 Respiratory failure s/p intubation 4. End-stage renal disease on hemodialysis secondary to right kidney atrophy, chronic tubulointerstitial nephritis. 5. Elevated troponin, likely secondary to acute coronary syndrome. non STEMI 6. Chronic atrial fibrillation. 7. Cardiomyopathy, status post pacemaker. 8. Chronic thrombocytopenia. with acute plt drop 9. Chronic megaloblastic anemia. 10. Abnormal LFTs with elevated bilirubin level.? hemolysis 11. Leukocytosis. 12. Anemia, megaloblastic with acute drop r/o hemolysis 13. Hypokalemia 14. hx retinitis pigmentosa with blindness 15. Hypocalcemia Assessment/Plan (Daily) -c/w HD -air matrass. -avoid nephrotoxic drugs Consultation Date/Type/Reason Admit Date/Time July 22, 2018 at 09:09 Initial Consult Date 07/23/18 Type of Consult nephrology Requesting Provider: TRINITY ELENA Date/Time of Note DATE: 07/27/18 TIME: 12:31 24 HR Interval Summary Subjective hx not possible: pt non-verbal, pt critical status Exam/Review of Systems Exam Vitals Vital Signs Date Temp Pulse Resp B/P (MAP) Pulse Ox O2 O2 Flow FiO2 Time Delivery Rate 07/27/18 88 08:00 07/27/18 12 105/82 99 Mechanical 06:00 (90) Ventilator 07/27/18 30 05:00 07/27/18 97.6 04:00 Intake and Output 07/26/18 07/26/18 07/27/18 1515:00 23:00 07:00 IntakeIntake Total 880 ml 1239 ml 470 ml OutputOutput Total 1700 ml BalanceBalance -820 ml 1239 ml 470 ml Exam orally intubated, r arm av fistula Constitutional: non-verbal Head: normocephalic Neck: supple Respiratory: diminished breath sounds Cardiovascular: regular rate and rhythm Gastrointestinal: soft, distended, other (NG tube feeding) Extremities: edema (right side) Skin: other (buttock wound) Results Result Diagram: 07/27/18 0441 07/27/18 0441 Results 24hrs Laboratory Tests Test 07/26/18 13:02 07/26/18 17:13 07/26/18 19:54 07/26/18 21:16 Bedside Glucose 110 114 153 Potassium Level 3.3 L Test 07/27/18 00:09 07/27/18 04:02 07/27/18 04:41 07/27/18 09:57 Bedside Glucose 102 137 119 White Blood Count 4.3 #L Red Blood Count 3.12 L Hemoglobin 10.1 L Hematocrit 30.9 L Mean Corpuscular 99.0 Volume Mean Corpuscular 32.4 Hemoglobin Mean Corpuscular 32.7 Hemoglobin Concent Red Cell 26.6 H Distribution Width Platelet Count 29 #*L Mean Platelet 12.5 H Volume Immature 15.300 H Granulocytes % Neutrophils % 47.0 Segmented 27 L Neutrophils % (Manual) Band Neutrophils % 36 H (Manual) Lymphocytes % 18.5 Lymphocytes % 19 (Manual) Reactive 2 H Lymphocytes % (Manual) Monocytes % 19.0 H Monocytes % 11 (Manual) Eosinophils % 0.0 Basophils % 0.2 Metamyelocytes % 3 H (manual) Myelocytes % 1 H (Manual) Promyelocytes % 1 H (Manual) Nucleated Red 108 H Blood Cells % Immature 0.660 H Granulocytes # Neutrophils # 2.0 Neutrophils # 1.2 L (Manual) Band Neutrophils # 1.5 H Lymphocytes 0.8 (Manual) Lymphocytes # 0.8 Reactive 0.0 Lymphocytes # Monocytes # 0.8 Monocytes # 0.4 (Manual) Eosinophils # 0.0 Basophils # 0.0 Metamyelocytes # 0.1 H Myelocytes # 0.0 Promyelocytes # 0.0 Nucleated Red 1.7 H Blood Cells # Platelet Estimate SIG DECREASED Polychromasia 1+ Poikilocytosis 3+ Anisocytosis 3+ Macrocytosis 2+ Target Cells 1+ Sodium Level 138 Potassium Level 4.2 Chloride Level 94 L Carbon Dioxide 18 L Level Anion Gap 26 H Blood Urea 22 H Nitrogen Creatinine 1.61 H Est Glomerular 38 L Filtrat Rate mL/min Glucose Level 125 Calcium Level 7.6 L Phosphorus Level 2.6 Magnesium Level 1.8 Ammonia 28 Lipase 433 H Complement C3 < 40 L Complement C4 < 8 L Medications Medication Current Medications Lorazepam (Ativan) 0.5 mg Q6H PRN IV .ANXIETY; Start 07/22/18 at 10:30 Ondansetron HCl (Zofran Inj) 4 mg Q6H PRN IV NAUSEA/VOMITING; Start 07/22/18 at 10:30 Aspirin (Aspirin) 81 mg DAILY PO ; Start 07/23/18 at 09:00; Status Hold Vancomycin HCl (Vanco Iv Per Pharmacy) VANCOMYCIN PER PHARMACY PER PROTOCOL XX ; Start 07/22/18 at 10:30 Multivit/Ca Carb/ B Cmplx/FA/Prenat (Lalita-Abigail) 1 tab DAILY PO Last administered on 07/27/18at 09:56; Admin Dose 1 TAB; Start 07/23/18 at 09:00 Phenylephrine HCl 250 ml @ 75 mls/hr TITRATE IV ; Start 07/22/18 at 12:00 Acetaminophen (Tylenol Supp) 650 mg Q4H PRN [place] TEMP > 37C; Start 07/22/18 at 12:30 Acetaminophen (Tylenol Liquid) 650 mg Q4H PRN PO TEMP > 37C; Start 07/22/18 at 12:30 Meperidine HCl (Demerol) 12.5 mg Q4H PRN IV POST OPERATIVE SHIVERING; Start 07/22/18 at 12:30 Meperidine HCl (Demerol) 25 mg Q4H PRN IV POST OPERATIVE SHIVERING; Start 07/22/18 at 12:30 Eye Lubricant (Akwa Oint) 1 applic Q6 BOTH EYES Last administered on 07/27/18at 05:44; Admin Dose 1 APPLIC; Start 07/22/18 at 18:00 Eye Lubricant (Artificial Tears Oph) 2 drop Q6 BOTH EYES Last administered on 07/27/18at 05:44; Admin Dose 2 DROP; Start 07/22/18 at 18:00 Norepinephrine 250 ml @ 1.875 mls/ hr TITRATE IV Last administered on 07/23/18at 01:01; Admin Dose 22.5 MLS/HR; Start 07/22/18 at 13:00 Docusate Sodium (Colace Liquid Cup) 100 mg BID NGT Last administered on 07/27/18at 09:56; Admin Dose 100 MG; Start 07/22/18 at 22:00 Midazolam HCl 50 ml @ 1 mls/hr TITRATE IV Last administered on 07/25/18 05:18; Admin Dose 3 MLS/HR; Start 07/23/18 at 02:00 Famotidine (Pepcid) 20 mg DAILY NGT Last administered on 07/27/18 09:56; Admin Dose 20 MG; Start 07/23/18 at 12:00 Diagnostic Test (Pha) (Accu-Chek) 1 ea Q4 XX Last administered on 07/27/18 09:58; Admin Dose 1 EA; Start 07/23/18 at 13:00 Albumin Human 100 ml @ 100 mls/hr WITH DIALYSIS PRN IV SBP <90 DURING DIALYSIS Last administered on 07/23/18 18:07; Admin Dose 100 MLS/HR; Start 07/23/18 at 18:00 Miscellaneous Information (* Miscellaneous Pharmacy Order) Treatment of Hypoglycemia: 1.BG 51... Per protocol XX ; Start 07/24/18 at 02:00 Miscellaneous Information 1 ea NOTE XX ; Start 07/24/18 at 02:30 Glucose (Glutose) 15 gm Q15M PRN PO DECREASED GLUCOSE; Start 07/24/18 at 02:30 Glucose (Glutose) 22.5 gm Q15M PRN PO DECREASED GLUCOSE; Start 07/24/18 at 02:30 Dextrose (D50w Syringe) 25 ml Q15M PRN IV DECREASED GLUCOSE Last administered on 07/25/18 23:07; Admin Dose 25 ML; Start 07/24/18 at 02:30 Dextrose (D50w Syringe) 50 ml Q15M PRN IV DECREASED GLUCOSE; Start 07/24/18 at 02:30 Glucagon (Glucagen) 1 mg Q15M PRN IM DECREASED GLUCOSE; Start 07/24/18 at 02:30 Glucose (Glutose) 15 gm Q15M PRN BUCCAL DECREASED GLUCOSE; Start 07/24/18 at 02:30 Cefepime HCl 50 ml @ 100 mls/hr DAILY IVPB Last administered on 07/27/18 09:56; Admin Dose 100 MLS/HR; Start 07/24/18 at 12:30 Metronidazole (Flagyl) 500 mg Q8 PO Last administered on 07/27/18 05:44; Admin Dose 500 MG; Start 07/24/18 at 13:00 Total Parenteral Nutrition 1,000 ml @ 40 mls/hr Q24H IV ; Start 07/24/18 at 12:00; Status UNV Calcium Acetate (Phoslo) 1,334 mg TID NGT Last administered on 07/27/18at 09:56; Admin Dose 1,334 MG; Start 07/25/18 at 13:00 Dextrose/Sodium Chloride 1,000 ml @ 40 mls/hr Q24H IV Last administered on 07/27/18at 04:05; Admin Dose 40 MLS/HR; Start 07/25/18 at 23:30 Hydrocortisone (Solu-Cortef) 200 mg Q8 IV Last administered on 07/27/18at 05:44; Admin Dose 200 MG; Start 07/26/18 at 06:00 KIM INGRAM July 27, 2018 12:34
--- NOTE | 2018-07-27 15:36 | PN ---
Date/Time of Note Date/Time of Note DATE: 07/27/18 TIME: 15:34 Assessment/Plan VTE Prophylaxis Risk score (from [facility])>0 risk: 8 SCD applied (from [facility]): Yes Pharmacological prophylaxis: NA/contraindicated Pharm contraindication: thrombocytopenia Lines/Catheters IV Catheter Type (from [facility] Central Line Central line still needed: Yes Urinary Cath still in place: No Assessment/Plan Assessment/Plan Assessment/Plan 1. Thrombocytopenia, likely related to DIC, rule out autoimmune thrombocytopenia. 2. Coagulopathy due to vitamin K deficiency, partially corrected. 3. Renal failure. 4. 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 DISCUSSION: The patient's coagulation abnormalities has improved with vitamin K. The improvement in fibrinogen is likely due to the administration of 10 bags of cryoprecipitate. The patient, as mentioned, does have thrombocytopenia with large platelets sugge sting some peripheral destruction. This may be autoimmune in nature and also possibly associated with a consumptive coagulopathy. The patient does have some evidence of DIC associated with the marked hypotension. Platelets and plasma were administered for noted ICH on CT scan, but this morning's CT show stability and will hold. I will recheck coagulation examination in the morning Result Diagram: 07/27/18 0441 07/27/18 0441 Results 24hrs Laboratory Tests Test 07/26/18 17:13 07/26/18 19:54 07/26/18 21:16 07/27/18 00:09 Bedside Glucose 114 153 102 Potassium Level 3.3 L Test 07/27/18 04:02 07/27/18 04:41 07/27/18 09:57 07/27/18 12:58 Bedside Glucose 137 119 142 White Blood Count 4.3 #L Red Blood Count 3.12 L Hemoglobin 10.1 L Hematocrit 30.9 L Mean Corpuscular 99.0 Volume Mean Corpuscular 32.4 Hemoglobin Mean Corpuscular 32.7 Hemoglobin Concent Red Cell 26.6 H Distribution Width Platelet Count 29 #*L Mean Platelet 12.5 H Volume Immature 15.300 H Granulocytes % Neutrophils % 47.0 Segmented 27 L Neutrophils % (Manual) Band Neutrophils % 36 H (Manual) Lymphocytes % 18.5 Lymphocytes % 19 (Manual) Reactive 2 H Lymphocytes % (Manual) Monocytes % 19.0 H Monocytes % 11 (Manual) Eosinophils % 0.0 Basophils % 0.2 Metamyelocytes % 3 H (manual) Myelocytes % 1 H (Manual) Promyelocytes % 1 H (Manual) Nucleated Red 108 H Blood Cells % Immature 0.660 H Granulocytes # Neutrophils # 2.0 Neutrophils # 1.2 L (Manual) Band Neutrophils # 1.5 H Lymphocytes 0.8 (Manual) Lymphocytes # 0.8 Reactive 0.0 Lymphocytes # Monocytes # 0.8 Monocytes # 0.4 (Manual) Eosinophils # 0.0 Basophils # 0.0 Metamyelocytes # 0.1 H Myelocytes # 0.0 Promyelocytes # 0.0 Nucleated Red 1.7 H Blood Cells # Platelet Estimate SIG DECREASED Polychromasia 1+ Poikilocytosis 3+ Anisocytosis 3+ Macrocytosis 2+ Target Cells 1+ Sodium Level 138 Potassium Level 4.2 Chloride Level 94 L Carbon Dioxide 18 L Level Anion Gap 26 H Blood Urea 22 H Nitrogen Creatinine 1.61 H Est Glomerular 38 L Filtrat Rate mL/min Glucose Level 125 Calcium Level 7.6 L Phosphorus Level 2.6 Magnesium Level 1.8 Ammonia 28 Lipase 433 H Complement C3 < 40 L Complement C4 < 8 L Subjective 24 Hr Interval Summary Free Text/Dictation Patient comfortable Family at bedside Exam/Review of Systems Exam Vitals Vital Signs Date Temp Pulse Resp B/P (MAP) Pulse Ox O2 O2 Flow FiO2 Time Delivery Rate 07/27/18 97.5 84 20 99/81 (87) 100 12:00 07/27/18 Mechanical 09:00 Ventilator 07/27/18 30 08:00 Intake and Output 07/26/18 07/26/18 07/27/18 1515:00 23:00 07:00 IntakeIntake Total 880 ml 1239 ml 490 ml OutputOutput Total 1700 ml BalanceBalance -820 ml 1239 ml 490 ml Constitutional: non-verbal, frail ENMT: nl external ears & nose, nl lips & teeth Neck: supple, non-tender Respiratory: normal air movement, diminished breath sounds Cardiovascular: regular rate and rhythm, nl pulses Gastrointestinal: soft, non-tender Results Results 24hrs Laboratory Tests Test 07/26/18 17:13 07/26/18 19:54 07/26/18 21:16 07/27/18 00:09 Bedside Glucose 114 153 102 Potassium Level 3.3 L Test 5/26/19 04:02 07/27/18 04:41 07/27/18 09:57 07/27/18 12:58 Bedside Glucose 137 119 142 White Blood Count 4.3 #L Red Blood Count 3.12 L Hemoglobin 10.1 L Hematocrit 30.9 L Mean Corpuscular 99.0 Volume Mean Corpuscular 32.4 Hemoglobin Mean Corpuscular 32.7 Hemoglobin Concent Red Cell 26.6 H Distribution Width Platelet Count 29 #*L Mean Platelet 12.5 H Volume Immature 15.300 H Granulocytes % Neutrophils % 47.0 Segmented 27 L Neutrophils % (Manual) Band Neutrophils % 36 H (Manual) Lymphocytes % 18.5 Lymphocytes % 19 (Manual) Reactive 2 H Lymphocytes % (Manual) Monocytes % 19.0 H Monocytes % 11 (Manual) Eosinophils % 0.0 Basophils % 0.2 Metamyelocytes % 3 H (manual) Myelocytes % 1 H (Manual) Promyelocytes % 1 H (Manual) Nucleated Red 108 H Blood Cells % Immature 0.660 H Granulocytes # Neutrophils # 2.0 Neutrophils # 1.2 L (Manual) Band Neutrophils # 1.5 H Lymphocytes 0.8 (Manual) Lymphocytes # 0.8 Reactive 0.0 Lymphocytes # Monocytes # 0.8 Monocytes # 0.4 (Manual) Eosinophils # 0.0 Basophils # 0.0 Metamyelocytes # 0.1 H Myelocytes # 0.0 Promyelocytes # 0.0 Nucleated Red 1.7 H Blood Cells # Platelet Estimate SIG DECREASED Polychromasia 1+ Poikilocytosis 3+ Anisocytosis 3+ Macrocytosis 2+ Target Cells 1+ Sodium Level 138 Potassium Level 4.2 Chloride Level 94 L Carbon Dioxide 18 L Level Anion Gap 26 H Blood Urea 22 H Nitrogen Creatinine 1.61 H Est Glomerular 38 L Filtrat Rate mL/min Glucose Level 125 Calcium Level 7.6 L Phosphorus Level 2.6 Magnesium Level 1.8 Ammonia 28 Lipase 433 H Complement C3 < 40 L Complement C4 < 8 L Medications Medication Current Medications Lorazepam (Ativan) 0.5 mg Q6H PRN IV .ANXIETY; Start 07/22/18 at 10:30 Ondansetron HCl (Zofran Inj) 4 mg Q6H PRN IV NAUSEA/VOMITING; Start 07/22/18 at 10:30 Aspirin (Aspirin) 81 mg DAILY PO ; Start 07/23/18 at 09:00; Status Hold Vancomycin HCl (Vanco Iv Per Pharmacy) VANCOMYCIN PER PHARMACY PER PROTOCOL XX ; Start 07/22/18 at 10:30 Multivit/Ca Carb/ B Cmplx/FA/Prenat (Lalita-Abigail) 1 tab DAILY PO Last administered on 07/27/18 09:56; Admin Dose 1 TAB; Start 07/23/18 at 09:00 Phenylephrine HCl 250 ml @ 75 mls/hr TITRATE IV ; Start 07/22/18 at 12:00 Acetaminophen (Tylenol Supp) 650 mg Q4H PRN [place] TEMP > 37C; Start 07/22/18 at 12:30 Acetaminophen (Tylenol Liquid) 650 mg Q4H PRN PO TEMP > 37C; Start 07/22/18 at 12:30 Meperidine HCl (Demerol) 12.5 mg Q4H PRN IV POST OPERATIVE SHIVERING; Start 07/22/18 at 12:30 Meperidine HCl (Demerol) 25 mg Q4H PRN IV POST OPERATIVE SHIVERING; Start 07/22/18 at 12:30 Eye Lubricant (Akwa Oint) 1 applic Q6 BOTH EYES Last administered on 07/27/18 12:53; Admin Dose 1 APPLIC; Start 07/22/18 at 18:00 Eye Lubricant (Artificial Tears Oph) 2 drop Q6 BOTH EYES Last administered on 07/27/18 12:53; Admin Dose 2 DROP; Start 07/22/18 at 18:00 Norepinephrine 250 ml @ 1.875 mls/ hr TITRATE IV Last administered on 07/03 01:01; Admin Dose 22.5 MLS/HR; Start 07/22/18 at 13:00 Docusate Sodium (Colace Liquid Cup) 100 mg BID NGT Last administered on 07/27/18 09:56; Admin Dose 100 MG; Start 07/22/18 at 22:00 Midazolam HCl 50 ml @ 1 mls/hr TITRATE IV Last administered on 07/25/18 05:18; Admin Dose 3 MLS/HR; Start 07/23/18 at 02:00 Famotidine (Pepcid) 20 mg DAILY NGT Last administered on 07/27/18 09:56; Admin Dose 20 MG; Start 07/23/18 at 12:00 Diagnostic Test (Pha) (Accu-Chek) 1 ea Q4 XX Last administered on 07/27/18at 12:58; Admin Dose 1 EA; Start 07/23/18 at 13:00 Albumin Human 100 ml @ 100 mls/hr WITH DIALYSIS PRN IV SBP <90 DURING DIALYSIS Last administered on 07/23/18at 18:07; Admin Dose 100 MLS/HR; Start 07/23/18 at 18:00 Miscellaneous Information (* Miscellaneous Pharmacy Order) Treatment of Hypoglycemia: 1.BG 51... Per protocol XX ; Start 07/24/18 at 02:00 Miscellaneous Information 1 ea NOTE XX ; Start 07/24/18 at 02:30 Glucose (Glutose) 15 gm Q15M PRN PO DECREASED GLUCOSE; Start 07/24/18 at 02:30 Glucose (Glutose) 22.5 gm Q15M PRN PO DECREASED GLUCOSE; Start 07/24/18 at 02:30 Dextrose (D50w Syringe) 25 ml Q15M PRN IV DECREASED GLUCOSE Last administered on 07/25/18at 23:07; Admin Dose 25 ML; Start 07/24/18 at 02:30 Dextrose (D50w Syringe) 50 ml Q15M PRN IV DECREASED GLUCOSE; Start 07/24/18 at 02:30 Glucagon (Glucagen) 1 mg Q15M PRN IM DECREASED GLUCOSE; Start 07/24/18 at 02:30 Glucose (Glutose) 15 gm Q15M PRN BUCCAL DECREASED GLUCOSE; Start 07/24/18 at 02:30 Cefepime HCl 50 ml @ 100 mls/hr DAILY IVPB Last administered on 07/27/18at 09:56; Admin Dose 100 MLS/HR; Start 07/24/18 at 12:30 Metronidazole (Flagyl) 500 mg Q8 PO Last administered on 07/27/18at 14:54; Admin Dose 500 MG; Start 07/24/18 at 13:00 Total Parenteral Nutrition 1,000 ml @ 40 mls/hr Q24H IV ; Start 07/24/18 at 12:00; Status UNV Calcium Acetate (Phoslo) 1,334 mg TID NGT Last administered on 07/27/18at 12:58; Admin Dose 1,334 MG; Start 07/25/18 at 13:00 Dextrose/Sodium Chloride 1,000 ml @ 40 mls/hr Q24H IV Last administered on 07/27/18at 04:05; Admin Dose 40 MLS/HR; Start 07/25/18 at 23:30 Hydrocortisone (Solu-Cortef) 200 mg Q8 IV Last administered on 07/27/18at 14:55; Admin Dose 200 MG; Start 07/26/18 at 06:00 YOUNG GRAVES MD July 27, 2018 15:35
--- NOTE | 2018-07-27 17:39 | PN ---
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 She had been recently discharged from outside hospital after being managed for MSSA bacteremia, no clear source has been found. She was home for 3 days before she was brought here. She suffered cardiac arrest in the emergency room after she was treated for hypoglycemia , she is currently managed as follows: 1. Status post cardiac arrest with return of spontaneous circulation Likely secondary to metabolic causes from missed hemodialysis and/or sepsis 2. Acute respiratory failure: Remains ventilator dependent 3. Severe Sepsis with septic shock and severe lactic acidosis and now multiorgan failure -multifactorial, possible PNA / pancreatitis -Patient sister was told that there is no infection of the pacemaker leads at outside hospital -remains on minimal pressor support -ID is following, patient on vancomycin Flagyl and cefepime, blood cultures are negative to date 4. Acute encephalopathy -CT brain does show bilateral cerebral infarcts likely secondary to DIC with repeat CT yesterday showing hemorrhagic conversion -Repeat CT today shows stable hemorrhage, no hydrocephalus noted -Neurosurgery consultation appreciated, no indication for surgery at this time -Sepsis also contributing 5. Fluid overload secondary to end-stage renal disease and CHF -Echo does show an EF of 45% with diastolic heart failure -Continue HD 6. Acute Pancreatitis -Lipase now trending down 7. NSTEMI type II secondary to demand -Cardiology following 8. LLL pneumonia -recent hospitalization with reports of MSSA bacteremia, continue antibiotics 9. ESRD on HD with severe metabolic acidosis -According to patient's sister patient was started on dialysis 4 years ag o, etiology of renal failure is unclear -Follow-up on lupus work-up -HD per renal 10. Paroxysmal Afib : rate controlled 11. S/p Pacemaker / AICD -Family was told that pacer leads were not infected at outside hospital 12. DIC with CVA -CT brain now shows a stable hemorrhagic conversion, neurosurgery consultation appreciated, no plans for surgery at this time -Patient status post FFP, cryoprecipitate and platelets -Treat underlying cause, monitor -Hematology and neurology following 13. 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 s/p transfusion 15. Hx of Mssa bacteremia -ROSANNE was done without evidence of endocarditis -subsequent blood cultures have been negative -no concern for vegetations on TTE here 16. Jaundice with transaminitis -Patient with likely shock liver -GI following, no clear biliary disease on CT abdomen and ultrasound abdomen 17.. GI bleeding : gopal / hematochezia -GI following, monitor 18. Acute colitis -Noted on CT, continue antibiotic 19. Decubitus ulcers -Wound care Prophylaxis: SCDs Result Diagram: 07/27/1844007/27/181 Results 24hrs Laboratory Tests Test 07/26/18 19:54 07/26/18 21:16 07/27/18 00:09 07/27/18 04:02 Potassium Level 3.3 L Bedside Glucose 153 102 137 Test 07/27/18 04:41 07/27/18 09:57 07/27/18 12:58 White Blood Count 4.3 #L Red Blood Count 3.12 L Hemoglobin 10.1 L Hematocrit 30.9 L Mean Corpuscular 99.0 Volume Mean Corpuscular 32.4 Hemoglobin Mean Corpuscular 32.7 Hemoglobin Concent Red Cell 26.6 H Distribution Width Platelet Count 29 #*L Mean Platelet 12.5 H Volume Immature 15.300 H Granulocytes % Neutrophils % 47.0 Segmented 27 L Neutrophils % (Manual) Band Neutrophils % 36 H (Manual) Lymphocytes % 18.5 Lymphocytes % 19 (Manual) Reactive 2 H Lymphocytes % (Manual) Monocytes % 19.0 H Monocytes % 11 (Manual) Eosinophils % 0.0 Basophils % 0.2 Metamyelocytes % 3 H (manual) Myelocytes % 1 H (Manual) Promyelocytes % 1 H (Manual) Nucleated Red 108 H Blood Cells % Immature 0.660 H Granulocytes # Neutrophils # 2.0 Neutrophils # 1.2 L (Manual) Band Neutrophils # 1.5 H Lymphocytes 0.8 (Manual) Lymphocytes # 0.8 Reactive 0.0 Lymphocytes # Monocytes # 0.8 Monocytes # 0.4 (Manual) Eosinophils # 0.0 Basophils # 0.0 Metamyelocytes # 0.1 H Myelocytes # 0.0 Promyelocytes # 0.0 Nucleated Red 1.7 H Blood Cells # Platelet Estimate SIG DECREASED Polychromasia 1+ Poikilocytosis 3+ Anisocytosis 3+ Macrocytosis 2+ Target Cells 1+ Sodium Level 138 Potassium Level 4.2 Chloride Level 94 L Carbon Dioxide 18 L Level Anion Gap 26 H Blood Urea 22 H Nitrogen Creatinine 1.61 H Est Glomerular 38 L Filtrat Rate mL/min Glucose Level 125 Calcium Level 7.6 L Phosphorus Level 2.6 Magnesium Level 1.8 Ammonia 28 Lipase 433 H Complement C3 < 40 L Complement C4 < 8 L Bedside Glucose 119 142 Subjective 24 Hr Interval Summary Subjective hx not possible: pt non-verbal Exam/Review of Systems Exam Vitals Vital Signs Date Temp Pulse Resp B/P (MAP) Pulse Ox O2 O2 Flow FiO2 Time Delivery Rate 07/27/18 81 16:00 07/27/18 97.5 13 108/88 100 16:00 (95) 07/27/18 30 15:20 07/27/18 Mechanical 09:00 Ventilator Intake and Output 07/26/18 07/26/18 07/27/18 1515:00 23:00 07:00 IntakeIntake Total 880 ml 1239 ml 530 ml OutputOutput Total 1700 ml BalanceBalance -820 ml 1239 ml 530 ml Constitutional: non-verbal ENMT: intubated Respiratory: clear to auscultation Cardiovascular: regular rate and rhythm Gastrointestinal: soft; No distended Musculoskeletal: nl extremities to inspection Results Results 24hrs Laboratory Tests Test 07/26/18 19:54 07/26/18 21:16 07/27/18 00:09 07/27/18 04:02 Potassium Level 3.3 L Bedside Glucose 153 102 137 Test 07/27/18 04:41 07/27/18 09:57 07/27/18 12:58 White Blood Count 4.3 #L Red Blood Count 3.12 L Hemoglobin 10.1 L Hematocrit 30.9 L Mean Corpuscular 99.0 Volume Mean Corpuscular 32.4 Hemoglobin Mean Corpuscular 32.7 Hemoglobin Concent Red Cell 26.6 H Distribution Width Platelet Count 29 #*L Mean Platelet 12.5 H Volume Immature 15.300 H Granulocytes % Neutrophils % 47.0 Segmented 27 L Neutrophils % (Manual) Band Neutrophils % 36 H (Manual) Lymphocytes % 18.5 Lymphocytes % 19 (Manual) Reactive 2 H Lymphocytes % (Manual) Monocytes % 19.0 H Monocytes % 11 (Manual) Eosinophils % 0.0 Basophils % 0.2 Metamyelocytes % 3 H (manual) Myelocytes % 1 H (Manual) Promyelocytes % 1 H (Manual) Nucleated Red 108 H Blood Cells % Immature 0.660 H Granulocytes # Neutrophils # 2.0 Neutrophils # 1.2 L (Manual) Band Neutrophils # 1.5 H Lymphocytes 0.8 (Manual) Lymphocytes # 0.8 Reactive 0.0 Lymphocytes # Monocytes # 0.8 Monocytes # 0.4 (Manual) Eosinophils # 0.0 Basophils # 0.0 Metamyelocytes # 0.1 H Myelocytes # 0.0 Promyelocytes # 0.0 Nucleated Red 1.7 H Blood Cells # Platelet Estimate SIG DECREASED Polychromasia 1+ Poikilocytosis 3+ Anisocytosis 3+ Macrocytosis 2+ Target Cells 1+ Sodium Level 138 Potassium Level 4.2 Chloride Level 94 L Carbon Dioxide 18 L Level Anion Gap 26 H Blood Urea 22 H Nitrogen Creatinine 1.61 H Est Glomerular 38 L Filtrat Rate mL/min Glucose Level 125 Calcium Level 7.6 L Phosphorus Level 2.6 Magnesium Level 1.8 Ammonia 28 Lipase 433 H Complement C3 < 40 L Complement C4 < 8 L Bedside Glucose 119 142 Medications Medication Current Medications Lorazepam (Ativan) 0.5 mg Q6H PRN IV .ANXIETY; Start 07/22/18 at 10:30 Ondansetron HCl (Zofran Inj) 4 mg Q6H PRN IV NAUSEA/VOMITING; Start 07/22/18 at 10:30 Aspirin (Aspirin) 81 mg DAILY PO ; Start 07/23/18 at 09:00; Status Hold Vancomycin HCl (Vanco Iv Per Pharmacy) VANCOMYCIN PER PHARMACY PER PROTOCOL XX ; Start 07/22/18 at 10:30 Multivit/Ca Carb/ B Cmplx/FA/Prenat (Lalita-Abigail) 1 tab DAILY PO Last administe red on 07/27/18at 09:56; Admin Dose 1 TAB; Start 07/23/18 at 09:00 Phenylephrine HCl 250 ml @ 75 mls/hr TITRATE IV ; Start 07/22/18 at 12:00 Acetaminophen (Tylenol Supp) 650 mg Q4H PRN MS TEMP > 37C; Start 07/22/18 at 12:30 Acetaminophen (Tylenol Liquid) 650 mg Q4H PRN PO TEMP > 37C; Start 07/22/18 at 12:30 Meperidine HCl (Demerol) 12.5 mg Q4H PRN IV POST OPERATIVE SHIVERING; Start 07/22/18 at 12:30 Meperidine HCl (Demerol) 25 mg Q4H PRN IV POST OPERATIVE SHIVERING; Start 07/22/18 at 12:30 Eye Lubricant (Akwa Oint) 1 applic Q6 BOTH EYES Last administered on 07/27/18 12:53; Admin Dose 1 APPLIC; Start 07/22/18 at 18:00 Eye Lubricant (Artificial Tears Oph) 2 drop Q6 BOTH EYES Last administered on 07/27/18 12:53; Admin Dose 2 DROP; Start 07/22/18 at 18:00 Norepinephrine 250 ml @ 1.875 mls/ hr TITRATE IV Last administered on 07/23/18 01:01; Admin Dose 22.5 MLS/HR; Start 07/22/18 at 13:00 Docusate Sodium (Colace Liquid Cup) 100 mg BID NGT Last administered on 07/27/18 09:56; Admin Dose 100 MG; Start 07/22/18 at 22:00 Midazolam HCl 50 ml @ 1 mls/hr TITRATE IV Last administered on 07/25/18 05:18; Admin Dose 3 MLS/HR; Start 07/23/18 at 02:00 Famotidine (Pepcid) 20 mg DAILY NGT Last administered on 07/27/18 09:56; Admin Dose 20 MG; Start 07/23/18 at 12:00 Diagnostic Test (Pha) (Accu-Chek) 1 ea Q4 XX Last administered on 07/27/18 12:58; Admin Dose 1 EA; Start 07/23/18 at 13:00 Albumin Human 100 ml @ 100 mls/hr WITH DIALYSIS PRN IV SBP <90 DURING DIALYSIS Last administered on 07/23/18 18:07; Admin Dose 100 MLS/HR; Start 07/23/18 at 18:00 Miscellaneous Information (* Miscellaneous Pharmacy Order) Treatment of Hypoglycemia: 1.BG 51... Per protocol XX ; Start 07/24/18 at 02:00 Miscellaneous Information 1 ea NOTE XX ; Start 07/24/18 at 02:30 Glucose (Glutose) 15 gm Q15M PRN PO DECREASED GLUCOSE; Start 07/24/18 at 02:30 Glucose (Glutose) 22.5 gm Q15M PRN PO DECREASED GLUCOSE; Start 07/24/18 at 02:30 Dextrose (D50w Syringe) 25 ml Q15M PRN IV DECREASED GLUCOSE Last administered on 07/25/18at 23:07; Admin Dose 25 ML; Start 07/24/18 at 02:30 Dextrose (D50w Syringe) 50 ml Q15M PRN IV DECREASED GLUCOSE; Start 07/24/18 at 02:30 Glucagon (Glucagen) 1 mg Q15M PRN IM DECREASED GLUCOSE; Start 07/24/18 at 02:30 Glucose (Glutose) 15 gm Q15M PRN BUCCAL DECREASED GLUCOSE; Start 07/24/18 at 02:30 Cefepime HCl 50 ml @ 100 mls/hr DAILY IVPB Last administered on 07/27/18at 09:56; Admin Dose 100 MLS/HR; Start 07/24/18 at 12:30 Metronidazole (Flagyl) 500 mg Q8 PO Last administered on 07/27/18at 14:54; Admin Dose 500 MG; Start 07/24/18 at 13:00 Total Parenteral Nutrition 1,000 ml @ 40 mls/hr Q24H IV ; Start 07/24/18 at 12:00; Status UNV Calcium Acetate (Phoslo) 1,334 mg TID NGT Last administered on 07/27/18at 12:58; Admin Dose 1,334 MG; Start 07/25/18 at 13:00 Dextrose/Sodium Chloride 1,000 ml @ 40 mls/hr Q24H IV Last administered on 07/27/18at 04:05; Admin Dose 40 MLS/HR; Start 07/25/18 at 23:30 Hydrocortisone (Solu-Cortef) 200 mg Q8 IV Last administered on 07/27/18at 14:55; Admin Dose 200 MG; Start 07/26/18 at 06:00 EDY BASHIR July 27, 2018 17:39
[2018-07-27] MEDS: metroNIDAZOLE 500 MG TAB NGT SCH (21:30)
[2018-07-28] VITALS (35 sets, daily range): BP systolic 95–112; BP diastolic 73–95; PULSE 77–85; RESP 12–17
[2018-07-28] MEDS: ARTIFICIAL TEARS 15 ML OPH BOTH EYES SCH ×4 (00:21→18:25)
[2018-07-28] MEDS: ACCU-CHEK XX SCH ×4 (00:22→13:00)
[2018-07-28] MEDS: OCULAR LUBRICANT 3.5 GM OPH OINT BOTH EYES SCH ×4 (00:22→18:59)
[2018-07-28] MEDS ORDERED: ACETAMINOPHEN 650MG/20.3ML CUP NGT PRN (00:30)
[2018-07-28] MEDS: DEXTROSE 5%-0.45% NACL 1,000 ML IV SCH (04:16)
[2018-07-28] MEDS: metroNIDAZOLE 500 MG TAB NGT SCH (05:33)
[2018-07-28] MEDS: HYDROCORTISONE 100 MG INJ IV SCH ×3 (05:33→21:16)
[2018-07-28] MEDS ORDERED: ASPIRIN 81 MG TAB NGT SCH (09:00)
[2018-07-28] MEDS: DOCUSATE SODIUM 10 MG/ML (10ML CUP) NGT SCH ×3 (09:00→21:00)
[2018-07-28] MEDS ORDERED: MULTIVIT/CA CARB/B CMPLX/FA TAB NGT SCH (09:00)
--- NOTE | 2018-07-28 09:02 | CONS ---
Assessment/Plan Assessment/Plan Assessment/Plan (Daily) IMPRESSION: 1. Sepsis, multifocal pneumonia. 2. Vent dependent respiratory failure. 3. End-stage renal disease on dialysis. 4. Severe thrombocytopenia. 5. Increased lipase, but there is no evidence of pancreatitis on the CAT scan. Lipase improving. 6. Elevated troponin. 7. Paroxysmal atrial fibrillation. 8. Status post pacemaker AICD. 9. Anemia, megaloblastic. 10. Malnutrition. 11. History of methicillin-susceptible Staphylococcus aureus bacteremia. There was no evidence of any vegetation on ROSANNE and the patient's ejection fraction is 45%. 12. Coagulopathy. 13. Jaundice. 14. Thrombocytopenia improved Plan continue tube feed via NG tube Continue all supportive care Continue antibiotics as per the ID Monitor LFT and PT PTT lipase improving Dr. Herrera to resume GI care of this patient tomorrow Above d/w with mother and daughter on phone Consultation Date/Type/Reason Admit Date/Time July 22, 2018 at 09:09 Initial Consult Date 07/23/18 Type of Consult GI Requesting Provider: TRINITY ELENA Date/Time of Note DATE: 07/28/18 TIME: 08:56 24 HR Interval Summary Subjective hx not possible: pt non-verbal, pt critical status Exam/Review of Systems Exam Vitals Vital Signs Date Temp Pulse Resp B/P (MAP) Pulse Ox O2 O2 Flow FiO2 Time Delivery Rate 07/28/18 79 08:00 07/28/18 12 100 30 07:23 07/28/18 105/90 Mechanical 06:00 (95) Ventilator 07/28/18 98.4 04:00 Intake and Output 07/27/18 07/27/18 07/28/18 1515:00 23:00 07:00 IntakeIntake Total 620 ml 490 ml 420 ml BalanceBalance 620 ml 490 ml 420 ml Constitutional: alert, oriented, well developed Psych: no complaints, nl mood/affect Head: normocephalic, atraumatic Eyes: nl conjunctiva, EOMI, nl lids ENMT: nl external ears & nose, nl lips & teeth, nl nasal mucosa & septum Neck: supple, non-tender Respiratory: clear to auscultation, normal air movement Cardiovascular: regular rate and rhythm, nl pulses Gastrointestinal: soft, non-tender, bowel sounds Results Result Diagram: 5/27/19 0404 5/27/19 0404 Results 24hrs Laboratory Tests Test 07/27/18 09:57 07/27/18 12:58 07/27/18 17:50 07/27/18 20:57 Bedside Glucose 119 142 154 164 Test 07/28/18 00:18 07/28/18 04:04 07/28/18 04:07 07/28/18 05:09 Bedside Glucose 176 194 White Blood 5.0 Count Red Blood Count 3.18 L Hemoglobin 10.4 L Hematocrit 31.6 L Mean Corpuscular 99.4 Volume Mean Corpuscular 32.7 Hemoglobin Mean Corpuscular 32.9 Hemoglobin Isadora nt Red Cell 25.7 H Distribution Width Platelet Count 5 #*L Mean Platelet Volume Immature 1.800 H Granulocytes % Neutrophils % Segmented 59 Neutrophils % (Manual) Band Neutrophils 6 H % (Manual) Lymphocytes % Lymphocytes % 14 L (Manual) Monocytes % Monocytes % 18 H (Manual) Eosinophils % Basophils % Myelocytes % 1 H (Manual) Promyelocytes % 2 H (Manual) Nucleated Red 27 H Blood Cells % Immature 0.090 H Granulocytes # Neutrophils # Neutrophils # 3.0 (Manual) Band Neutrophils 0.3 # Lymphocytes 0.7 L (Manual) Lymphocytes # Monocytes # Monocytes # 0.9 (Manual) Eosinophils # Basophils # Myelocytes # 0.0 Promyelocytes # 0.1 H Nucleated Red Blood Cells # Platelet SIG DECREASED Estimate Giant Platelets 2 H Poikilocytosis 3+ Anisocytosis 3+ Macrocytosis 2+ Target Cells 1+ Prothrombin Time 35.7 H Prothrombin Time 2.8 Ratio INR 3.57 International Normalized Ratio Activated 41.6 H Partial Thrombop last Time Sodium Level 135 Potassium Level 3.9 Chloride Level 93 L Carbon Dioxide 20 L Level Anion Gap 22 H Blood Urea 39 #H Nitrogen Creatinine 2.16 H Est Glomerular 27 L Filtrat Rate mL/min Glucose Level 191 Calcium Level 7.2 L Phosphorus Level 2.5 Magnesium Level 2.0 Lipase 301 H Lab Scanned BLOOD TRANSFUSI Report ON Medications Medication Current Medications Lorazepam (Ativan) 0.5 mg Q6H PRN IV .ANXIETY; Start 07/22/18 at 10:30 Ondansetron HCl (Zofran Inj) 4 mg Q6H PRN IV NAUSEA/VOMITING; Start 07/22/18 at 10:30 Vancomycin HCl (Vanco Iv Per Pharmacy) VANCOMYCIN PER PHARMACY PER PROTOCOL XX ; Start 07/22/18 at 10:30 Phenylephrine HCl 250 ml @ 75 mls/hr TITRATE IV ; Start 07/22/18 at 12:00 Acetaminophen (Tylenol Supp) 650 mg Q4H PRN SC TEMP > 37C; Start 07/22/18 at 12:30 Meperidine HCl (Demerol) 12.5 mg Q4H PRN IV POST OPERATIVE SHIVERING; Start 07/22/18 at 12:30 Meperidine HCl (Demerol) 25 mg Q4H PRN IV POST OPERATIVE SHIVERING; Start 07/22/18 at 12:30 Eye Lubricant (Akwa Oint) 1 applic Q6 BOTH EYES Last administered on 07/28/18 05:34; Admin Dose 1 APPLIC; Start 07/22/18 at 18:00 Eye Lubricant (Artificial Tears Oph) 2 drop Q6 BOTH EYES Last administered on 05:34; Admin Dose 2 DROP; Start 07/22/18 at 18:00 Norepinephrine 250 ml @ 1.875 mls/ hr TITRATE IV Last administered on 07/23/18 01:01; Admin Dose 22.5 MLS/HR; Start 07/22/18 at 13:00 Docusate Sodium (Colace Liquid Cup) 100 mg BID NGT Last administered on 07/27/18 20:59; Admin Dose 100 MG; Start 07/22/18 at 22:00 Midazolam HCl 50 ml @ 1 mls/hr TITRATE IV Last administered on 07/25/18 05:18; Admin Dose 3 MLS/HR; Start 07/23/18 at 02:00 Famotidine (Pepcid) 20 mg DAILY NGT Last administered on 07/27/18 09:56; Admin Dose 20 MG; Start 07/23/18 at 12:00 Diagnostic Test (Pha) (Accu-Chek) 1 ea Q4 XX Last administered on 07/28/18 04:08; Admin Dose 1 EA; Start 07/23/18 at 13:00 Albumin Human 100 ml @ 100 mls/hr WITH DIALYSIS PRN IV SBP <90 DURING DIALYSIS Last administered on 07/23/18 18:07; Admin Dose 100 MLS/HR; Start 07/23/18 at 18:00 Miscellaneous Information (* Miscellaneous Pharmacy Order) Treatment of Hypoglycemia: 1.BG 51... Per protocol XX ; Start 07/24/18 at 02:00 Miscellaneous Information 1 ea NOTE XX ; Start 07/24/18 at 02:30 Glucose (Glutose) 15 gm Q15M PRN PO DECREASED GLUCOSE; Start 07/24/18 at 02:30 Glucose (Glutose) 22.5 gm Q15M PRN PO DECREASED GLUCOSE; Start 07/24/18 at 02:30 Dextrose (D50w Syringe) 25 ml Q15M PRN IV DECREASED GLUCOSE Last administered on 07/25/18at 23:07; Admin Dose 25 ML; Start 07/24/18 at 02:30 Dextrose (D50w Syringe) 50 ml Q15M PRN IV DECREASED GLUCOSE; Start 07/24/18 at 02:30 Glucagon (Glucagen) 1 mg Q15M PRN IM DECREASED GLUCOSE; Start 07/24/18 at 02:30 Glucose (Glutose) 15 gm Q15M PRN BUCCAL DECREASED GLUCOSE; Start 07/24/18 at 02:30 Cefepime HCl 50 ml @ 100 mls/hr DAILY IVPB Last administered on 07/27/18at 09: 56; Admin Dose 100 MLS/HR; Start 07/24/18 at 12:30 Total Parenteral Nutrition 1,000 ml @ 40 mls/hr Q24H IV ; Start 07/24/18 at 12:00; Status UNV Calcium Acetate (Phoslo) 1,334 mg TID NGT Last administered on 07/27/18at 20:59; Admin Dose 1,334 MG; Start 07/25/18 at 13:00 Dextrose/Sodium Chloride 1,000 ml @ 40 mls/hr Q24H IV Last administered on 07/28/18at 04:16; Admin Dose 40 MLS/HR; Start 07/25/18 at 23:30 Hydrocortisone (Solu-Cortef) 200 mg Q8 IV Last administered on 07/28/18at 05:33; Admin Dose 200 MG; Start 07/26/18 at 06:00 Metronidazole (Flagyl) 500 mg Q8 NGT Last administered on 07/28/18at 05:33; Admin Dose 500 MG; Start 07/27/18 at 22:00 Acetaminophen (Tylenol Liquid) 650 mg Q4H PRN NGT TEMP > 37C; Start 07/28/18 at 00:30 Aspirin (Aspirin) 81 mg DAILY NGT ; Start 07/28/18 at 09:00 Multivit/Ca Carb/ B Cmplx/FA/Prenat (Lalita-Abigail) 1 tab DAILY NGT ; Start 07/28/18 at 09:00 Miscellaneous Information (*Rx Drug Level Order Reminder*) VANCO RANDOM @ 0,500 0500 ONCE XX ; Start 07/29/18 at 05:00; Stop 07/29/18 at 05:01 SIMONE RICHARDS MD July 28, 2018 09:02
[2018-07-28] MEDS: CEFEPIME 1GM/50 ML (PMX) 50 ML IVPB SCH (09:26)
[2018-07-28] MEDS: FAMOTIDINE 20 MG TAB NGT SCH (09:26)
[2018-07-28] MEDS: CALCIUM ACETATE 667 MG CAP NGT SCH ×3 (09:27→21:16)
--- NOTE | 2018-07-28 09:30 | CONS ---
Consult Date/Type/Reason Admit Date/Time July 22, 2018 at 09:09 Initial Consult Date 07/23/18 Type of Consult Pulmonary Requesting Provider: TRINITY ELENA Date/Time of Note DATE: 07/28/18 TIME: 09:29 Subjective Unresponsive on mechanical ventilation. CT brain shows hemorrhagic conversion of cerebellar infarcts. Objective Vital Signs Date Temp Pulse Resp B/P (MAP) Pulse Ox O2 O2 Flow FiO2 Time Delivery Rate 07/28/18 94.8 79 14 107/89 100 Mechanical 08:00 (95) Ventilator 07/28/18 30 07:23 Intake and Output 07/27/18 07/27/18 07/28/18 1515:00 23:00 07:00 IntakeIntake Total 620 ml 490 ml 420 ml BalanceBalance 620 ml 490 ml 420 ml Exam GENERAL: Young lady orally intubated on mechanical ventilation unresponsive VITAL SIGNS: per chart NECK: Supple. No JVD or lymphadenopathy. CARDIAC EXAM: S1, S2. No added sounds or murmurs. CHEST: Diminished air entry bilaterally ABDOMEN: Soft, nontender. No guarding or rebound. EXTREMITIES: No cyanosis, clubbing or edema. NEUROLOGIC: Generalized weakness. . Vent Setting Ventilator Support Mode: AC Fraction of Inspired Oxygen pe: 30 Positive End Expiratory Pressu: 5.0 Results/Medications Result Diagram: 07/28/18 0404 07/28/18 0404 Results 24 hrs Laboratory Tests Test 07/27/18 09:57 07/27/18 12:58 07/27/18 17:50 07/27/18 20:57 Bedside Glucose 119 142 154 164 Test 07/28/18 00:18 07/28/18 04:04 07/28/18 04:07 07/28/18 05:09 Bedside Glucose 176 194 White Blood 5.0 Count Red Blood Count 3.18 L Hemoglobin 10.4 L Hematocrit 31.6 L Mean Corpuscular 99.4 Volume Mean Corpuscular 32.7 Hemoglobin Mean Corpuscular 32.9 Hemoglobin Isadora nt Red Cell 25.7 H Distribution Width Platelet Count 5 #*L Mean Platelet Volume Immature 1.800 H Granulocytes % Neutrophils % Segmented 59 Neutrophils % (Manual) Band Neutrophils 6 H % (Manual) Lymphocytes % Lymphocytes % 14 L (Manual) Monocytes % Monocytes % 18 H (Manual) Eosinophils % Basophils % Myelocytes % 1 H (Manual) Promyelocytes % 2 H (Manual) Nucleated Red 27 H Blood Cells % Immature 0.090 H Granulocytes # Neutrophils # Neutrophils # 3.0 (Manual) Band Neutrophils 0.3 # Lymphocytes 0.7 L (Manual) Lymphocytes # Monocytes # Monocytes # 0.9 (Manual) Eosinophils # Basophils # Myelocytes # 0.0 Promyelocytes # 0.1 H Nucleated Red Blood Cells # Platelet SIG DECREASED Estimate Giant Platelets 2 H Poikilocytosis 3+ Anisocytosis 3+ Macrocytosis 2+ Target Cells 1+ Prothrombin Time 35.7 H Prothrombin Time 2.8 Ratio INR 3.57 International Normalized Ratio Activated 41.6 H Partial Thrombop last Time Sodium Level 135 Potassium Level 3.9 Chloride Level 93 L Carbon Dioxide 20 L Level Anion Gap 22 H Blood Urea 39 #H Nitrogen Creatinine 2.16 H Est Glomerular 27 L Filtrat Rate mL/min Glucose Level 191 Calcium Level 7.2 L Phosphorus Level 2.5 Magnesium Level 2.0 Lipase 301 H Lab Scanned BLOOD TRANSFUSI Report ON Medications Current Medications Lorazepam (Ativan) 0.5 mg Q6H PRN IV .ANXIETY; Start 07/22/18 at 10:30 Ondansetron HCl (Zofran Inj) 4 mg Q6H PRN IV NAUSEA/VOMITING; Start 07/22/18 at 10:30 Vancomycin HCl (Vanco Iv Per Pharmacy) VANCOMYCIN PER PHARMACY PER PROTOCOL XX ; Start 07/22/18 at 10:30 Phenylephrine HCl 250 ml @ 75 mls/hr TITRATE IV ; Start 07/22/18 at 12:00 Acetaminophen (Tylenol Supp) 650 mg Q4H PRN CO TEMP > 37C; Start 07/22/18 at 12:30 Meperidine HCl (Demerol) 12.5 mg Q4H PRN IV POST OPERATIVE SHIVERING; Start 07/22/18 at 12:30 Meperidine HCl (Demerol) 25 mg Q4H PRN IV POST OPERATIVE SHIVERING; Start 07/22/18 at 12:30 Eye Lubricant (Akwa Oint) 1 applic Q6 BOTH EYES Last administered on 07/28/18at 05:34; Admin Dose 1 APPLIC; Start 07/22/18 at 18:00 Eye Lubricant (Artificial Tears Oph) 2 drop Q6 BOTH EYES Last administered on 07/28/18at 05:34; Admin Dose 2 DROP; Start 07/22/18 at 18:00 Norepinephrine 250 ml @ 1.875 mls/ hr TITRATE IV Last administered on 07/23/18at 01:01; Admin Dose 22.5 MLS/HR; Start 07/22/18 at 13:00 Docusate Sodium (Colace Liquid Cup) 100 mg BID NGT Last administered on at 09:27; Admin Dose 100 MG; Start 07/22/18 at 22:00 Midazolam HCl 50 ml @ 1 mls/hr TITRATE IV Last administered on 07/25/18at 05:18; Admin Dose 3 MLS/HR; Start 07/23/18 at 02:00 Famotidine (Pepcid) 20 mg DAILY NGT Last administered on 07/28/18at 09:26; Admin Dose 20 MG; Start 07/23/18 at 12:00 Diagnostic Test (Pha) (Accu-Chek) 1 ea Q4 XX Last administered on 07/28/18at 04:08; Admin Dose 1 EA; Start 07/23/18 at 13:00 Albumin Human 100 ml @ 100 mls/hr WITH DIALYSIS PRN IV SBP <90 DURING DIALYSIS Last administered on 07/23/18at 18:07; Admin Dose 100 MLS/HR; Start 07/23/18 at 18:00 Miscellaneous Information (* Miscellaneous Pharmacy Order) Treatment of Hypoglycemia: 1.BG 51... Per protocol XX ; Start 07/24/18 at 02:00 Miscellaneous Information 1 ea NOTE XX ; Start 07/24/18 at 02:30 Glucose (Glutose) 15 gm Q15M PRN PO DECREASED GLUCOSE; Start 07/24/18 at 02:30 Glucose (Glutose) 22.5 gm Q15M PRN PO DECREASED GLUCOSE; Start 07/24/18 at 02:30 Dextrose (D50w Syringe) 25 ml Q15M PRN IV DECREASED GLUCOSE Last administered on 07/25/18at 23:07; Admin Dose 25 ML; Start 07/24/18 at 02:30 Dextrose (D50w Syringe) 50 ml Q15M PRN IV DECREASED GLUCOSE; Start 07/24/18 at 02:30 Glucagon (Glucagen) 1 mg Q15M PRN IM DECREASED GLUCOSE; Start 07/24/18 at 02:30 Glucose (Glutose) 15 gm Q15M PRN BUCCAL DECREASED GLUCOSE; Start 07/24/18 at 02:30 Cefepime HCl 50 ml @ 100 mls/hr DAILY IVPB Last administered on 07/28/18 09:26; Admin Dose 100 MLS/HR; Start 07/24/18 at 12:30 Calcium Acetate (Phoslo) 1,334 mg TID NGT Last administered on 07/28/18 09:27; Admin Dose 1,334 MG; Start 07/25/18 at 13:00 Metronidazole (Flagyl) 500 mg Q8 NGT Last administered on 07/28/18at 05:33; Admin Dose 500 MG; Start 07/27/18 at 22:00 Acetaminophen (Tylenol Liquid) 650 mg Q4H PRN NGT TEMP > 37C; Start 07/28/18 at 00:30 Aspirin (Aspirin) 81 mg DAILY NGT Last administered on 07/28/18 09:28; Admin Dose 81 MG; Start 07/28/18 at 09:00 Multivit/Ca Carb/ B Cmplx/FA/Prenat (Lalita-Abigail) 1 tab DAILY NGT Last ad ministered on 07/28/18 09:26; Admin Dose 1 TAB; Start 07/28/18 at 09:00 Miscellaneous Information (*Rx Drug Level Order Reminder*) VANCO RANDOM @ 0,500 0500 ONCE XX ; Start 07/29/18 at 05:00; Stop 07/29/18 at 05:01 Hydrocortisone (Solu-Cortef) 100 mg Q8 IV ; Start 07/28/18 at 14:00 Assessment/Plan Hospital Course (Demo Recall) Assessment 1. Acute hypoxemic respiratory failure requiring mechanical ventilation 2. Severe thrombocytopenia 3. Renal insufficiency 4. Status post septic shock 5. Dysphasia secondary to above 6. History of cardiomyopathy 7. History of retinitis pigmentosa 7. Hemorrhagic conversion of cerebral infarcts with severe encephalopathy Plan 1. Continue mechanical ventilation low tidal volume as tolerated 2. Continue sedation and pain control 3. Neurosurgical recommendations 4. Palliative care recommendations as overall prognosis extremely poor Family conference regarding goals of care Critical care time 40 minutes CAREN WASSERMAN MD, [facility] July 28, 2018 09:30
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
--- NOTE | 2018-07-28 09:45 | CONS ---
Assessment/Plan Assessment/Plan Hospital Course 27 yo F with multiple significant comorbidities who was admitted to ICU following a cardiac arrest. TTM was deferred d/t her improvement in neurologic status. CTH on 07/24 was notable for acute BL cerebellar infarcts... for which neurology is consulted. Her labs suggest DIC, which is certainly the underlying precipitant. Repeat CTH is stable. MRI brain is presently contraindicated d/t pacemaker Echo is unrevealing. LDL 20; haptoglobin <8 On 07/26, the pt was noted to have a worsening mental status. A STAT HCT was notable for hemorrhagic transformation of the cerebellar infarcts. Repeat HCT on 07/27 was stable. P: Add EEG to evaluate for epileptiform activity Hold all anticoagulation/antiplatelet therapy Maintain SBP < 160 CTA H/N to evaluate posterior circulation when medically able Consider complete hypercoagulability panel Cont medical management per primary Cont to hold sedating medications where possible PT/OT/ST when able Will follow clinically, to recommend neurologic studies, as necessary Consultation Date/Type/Reason Admit Date/Time July 22, 2018 at 09:09 Type of Consult Neurology Reason for Consultation acute CVA Requesting Provider: TRINITY ELENA Date/Time of Note DATE: 07/28/18 TIME: 09:45 24 HR Interval Summary Free Text/Dictation Continues critical care. Pt remains unresponsive per report. S/p platelet transfusion. Exam Vital Signs Vitals Vital Signs Date Temp Pulse Resp B/P (MAP) Pulse Ox O2 O2 Flow FiO2 Time Delivery Rate 07/28/18 94.8 79 14 107/89 100 Mechanical 08:00 (95) Ventilator 07/28/18 30 07:23 Intake and Output 07/27/18 07/27/18 07/28/18 1515:00 23:00 07:00 IntakeIntake Total 620 ml 490 ml 420 ml BalanceBalance 620 ml 490 ml 420 ml Exam PE: Gen Appearance: No Apparent Distress HEENT: Intubated Cardiovascular: Regular rate Abdomen: Soft Extremities: Dry NE: The patient was comatose. Cranial nerve examination was limited by mental status. Pupils were equal and sluggishly reactive to light. There was no afferent pupillary defect. Funduscopic examination was limited. Face was grossly symmetric, w/ present corneal and cough reflexes. Tone was normal. Muscle bulk was normal. I did not see fasciculations. The kaushal ent did not withdraw her extremities to noxious stimuli. Coordination and gait testing was limited by mental status. Arm and leg reflexes were within normal limits and symmetric. Coe's sign was absent. Plantar responses were flexor. LUCIA CARRILLO NP July 28, 2018 09:45
--- NOTE | 2018-07-28 09:55 | CONS ---
Assessment/Plan Assessment/Plan Assessment/Plan (Daily) small hemorrhagic conversion of cerebellar strokes. Stable radiographically. Neurologically poor exam despite scan having been stable. MRI could be help assess extent of infarcts but reportedly not stable this. Unlikely to have progression of size of current hemorrhages though at risk for new bleeding given severe coagulopathy and thrombocytopenia. No current indication for surgery and could not perform any treatment given these issue. Transfusions recommended to keep platelets elevated to prevent further bleeding. Repeat imaging recommended if neurologically worsens though exam and prognosis very poor. Consultation Date/Type/Reason Admit Date/Time July 22, 2018 at 09:09 Initial Consult Date 07/23/18 Type of Consult Neurosurgery Reason for Consultation Patient unresponsive. Per family and nursing had not awakened or follow-commands since yesterday. Requesting Provider: TRINITY ELENA Date/Time of Note DATE: 07/28/18 TIME: 09:46 Exam/Review of Systems Exam Vitals Vital Signs Date Temp Pulse Resp B/P (MAP) Pulse Ox O2 O2 Flow FiO2 Time Delivery Rate 07/28/18 94.8 79 14 107/89 100 Mechanical 08:00 (95) Ventilator 07/28/18 30 07:23 Intake and Output 07/27/18 07/27/18 07/28/18 1515:00 23:00 07:00 IntakeIntake Total 620 ml 490 ml 420 ml BalanceBalance 620 ml 490 ml 420 ml Eyes: other (PERRL but sluggish) Neurological: other (eyes closed, unresponsive to noxious stimuli. No spontan eous movements of extremities, difficult to apply noxious stimuli due to severe thrombocytopenia. ) Results Result Diagram: 07/28/18 0404 07/28/18 0404 Results 24hrs Laboratory Tests Test 07/27/18 09:57 07/27/18 12:58 07/27/18 17:50 07/27/18 20:57 Bedside Glucose 119 142 154 164 Test 07/28/18 00:18 07/28/18 04:04 07/28/18 04:07 07/28/18 05:09 Bedside Glucose 176 194 White Blood 5.0 Count Red Blood Count 3.18 L Hemoglobin 10.4 L Hematocrit 31.6 L Mean Corpuscular 99.4 Volume Mean Corpuscular 32.7 Hemoglobin Mean Corpuscular 32.9 Hemoglobin Isadora nt Red Cell 25.7 H Distribution Width Platelet Count 5 #*L Mean Platelet Volume Immature 1.800 H Granulocytes % Neutrophils % Segmented 59 Neutrophils % (Manual) Band Neutrophils 6 H % (Manual) Lymphocytes % Lymphocytes % 14 L (Manual) Monocytes % Monocytes % 18 H (Manual) Eosinophils % Basophils % Myelocytes % 1 H (Manual) Promyelocytes % 2 H (Manual) Nucleated Red 27 H Blood Cells % Immature 0.090 H Granulocytes # Neutrophils # Neutrophils # 3.0 (Manual) Band Neutrophils 0.3 # Lymphocytes 0.7 L (Manual) Lymphocytes # Monocytes # Monocytes # 0.9 (Manual) Eosinophils # Basophils # Myelocytes # 0.0 Promyelocytes # 0.1 H Nucleated Red Blood Cells # Platelet SIG DECREASED Estimate Giant Platelets 2 H Poikilocytosis 3+ Anisocytosis 3+ Macrocytosis 2+ Target Cells 1+ Prothrombin Time 35.7 H Prothrombin Time 2.8 Ratio INR 3.57 International Normalized Ratio Activated 41.6 H Partial Thrombop last Time Sodium Level 135 Potassium Level 3.9 Chloride Level 93 L Carbon Dioxide 20 L Level Anion Gap 22 H Blood Urea 39 #H Nitrogen Creatinine 2.16 H Est Glomerular 27 L Filtrat Rate mL/min Glucose Level 191 Calcium Level 7.2 L Phosphorus Level 2.5 Magnesium Level 2.0 Lipase 301 H Lab Scanned BLOOD TRANSFUSI Report ON Test 07/28/18 09:32 Bedside Glucose [address] yesterday unchanged from day before. Medications Medication Current Medications Lorazepam (Ativan) 0.5 mg Q6H PRN IV .ANXIETY; Start 07/22/18 at 10:30 Ondansetron HCl (Zofran Inj) 4 mg Q6H PRN IV NAUSEA/VOMITING; Start 07/22/18 at 10:30 Vancomycin HCl (Vanco Iv Per Pharmacy) VANCOMYCIN PER PHARMACY PER PROTOCOL XX ; Start 07/22/18 at 10:30 Phenylephrine HCl 250 ml @ 75 mls/hr TITRATE IV ; Start 07/22/18 at 12:00 Acetaminophen (Tylenol Supp) 650 mg Q4H PRN ID TEMP > 37C; Start 07/22/18 at 12:30 Meperidine HCl (Demerol) 12.5 mg Q4H PRN IV POST OPERATIVE SHIVERING; Start 07/22/18 at 12:30 Meperidine HCl (Demerol) 25 mg Q4H PRN IV POST OPERATIVE SHIVERING; Start 07/22/18 at 12:30 Eye Lubricant (Akwa Oint) 1 applic Q6 BOTH EYES Last administered on 07/28/18 05:34; Admin Dose 1 APPLIC; Start 07/22/18 at 18:00 Eye Lubricant (Artificial Tears Oph) 2 drop Q6 BOTH EYES Last administered on 07/28/18 05:34; Admin Dose 2 DROP; Start 07/22/18 at 18:00 Norepinephrine 250 ml @ 1.875 mls/ hr TITRATE IV Last administered on 07/23/18 01:01; Admin Dose 22.5 MLS/HR; Start 07/22/18 at 13:00 Docusate Sodium (Colace Liquid Cup) 100 mg BID NGT Last administered on 07/28/18 09:27; Admin Dose 100 MG; Start 07/22/18 at 22:00 Midazolam HCl 50 ml @ 1 mls/hr TITRATE IV Last administered on 07/25/18 05:18; Admin Dose 3 MLS/HR; Start 07/23/18 at 02:00 Famotidine (Pepcid) 20 mg DAILY NGT Last administered on 07/28/18 09:26; Admin Dose 20 MG; Start 07/23/18 at 12:00 Diagnostic Test (Pha) (Accu-Chek) 1 ea Q4 XX Last administered on 07/28/18 09:36; Admin Dose 1 EA; Start 07/23/18 at 13:00 Albumin Human 100 ml @ 100 mls/hr WITH DIALYSIS PRN IV SBP <90 DURING DIALYSIS Last administered on 07/23/18 18:07; Admin Dose 100 MLS/HR; Start 07/23/18 at 18:00 Miscellaneous Information (* Miscellaneous Pharmacy Order) Treatment of Hypoglycemia: 1.BG 51... Per protocol XX ; Start 07/24/18 at 02:00 Miscellaneous Information 1 ea NOTE XX ; Start 07/24/18 at 02:30 Glucose (Glutose) 15 gm Q15M PRN PO DECREASED GLUCOSE; Start 07/24/18 at 02:30 Glucose (Glutose) 22.5 gm Q15M PRN PO DECREASED GLUCOSE; Start 07/24/18 at 02:30 Dextrose (D50w Syringe) 25 ml Q15M PRN IV DECREASED GLUCOSE Last administered on 5/24/19at 23:07; Admin Dose 25 ML; Start 07/24/18 at 02:30 Dextrose (D50w Syringe) 50 ml Q15M PRN IV DECREASED GLUCOSE; Start 07/24/18 at 02:30 Glucagon (Glucagen) 1 mg Q15M PRN IM DECREASED GLUCOSE; Start 07/24/18 at 02:30 Glucose (Glutose) 15 gm Q15M PRN BUCCAL DECREASED GLUCOSE; Start 07/24/18 at 02:30 Cefepime HCl 50 ml @ 100 mls/hr DAILY IVPB Last administered on 07/28/18at 09:26; Admin Dose 100 MLS/HR; Start 07/24/18 at 12:30 Calcium Acetate (Phoslo) 1,334 mg TID NGT Last administered on 07/28/18at 09:27; Admin Dose 1,334 MG; Start 07/25/18 at 13:00 Metronidazole (Flagyl) 500 mg Q8 NGT Last administered on 07/28/18at 05:33; Admin Dose 500 MG; Start 07/27/18 at 22:00 Acetaminophen (Tylenol Liquid) 650 mg Q4H PRN NGT TEMP > 37C; Start 07/28/18 at 00:30 Aspirin (Aspirin) 81 mg DAILY NGT Last administered on 07/28/18at 09:28; Admin D ose 81 MG; Start 07/28/18 at 09:00 Multivit/Ca Carb/ B Cmplx/FA/Prenat (Lalita-Abigail) 1 tab DAILY NGT Last administered on 07/28/18at 09:26; Admin Dose 1 TAB; Start 07/28/18 at 09:00 Miscellaneous Information (*Rx Drug Level Order Reminder*) VANCO RANDOM @ 0,500 0500 ONCE XX ; Start 07/29/18 at 05:00; Stop 07/29/18 at 05:01 Hydrocortisone (Solu-Cortef) 100 mg Q8 IV ; Start 07/28/18 at 14:00 Miscellaneous Information (* Miscellaneous Pharmacy Order) Discontinue current oral sulfonylur... ONCE ONCE XX ; Start 07/28/18 at 10:00; Stop 07/28/18 at 10:01 Diagnostic Test (Pha) (Accu-Chek) 1 ea 02 XX ; Start 07/29/18 at 02:00 Miscellaneous Information (* Miscellaneous Pharmacy Order) HYPOGLYCEMIA PROTOCOL w... ONCE ONCE XX ; Start 07/28/18 at 10:00; Stop 07/28/18 at 10:01 Insulin Aspart (Novolog Insulin Pen) NOVOLOG *MILD* ALGORITHM WITH MEALS BEDTIME SC ; Start 07/28/18 at 11:30 Miscellaneous Information (* Miscellaneous Pharmacy Order) Discontinue all previ... ONCE ONCE XX ; Start 07/28/18 at 10:00; Stop 07/28/18 at 10:01 ISAI WAYNE MD July 28, 2018 09:55
[2018-07-28] MEDS ORDERED: INSULIN ASPART [NOVOLOG] 3 ML PEN SC SCH (11:30)
--- NOTE | 2018-07-28 11:35 | CONS ---
Assessment/Plan Assessment/Plan Hospital Course (Demo Recall) 1. Status post code blue, unresponsive, could be secondary to cardiac in origin/rule out embolic infarct to the brain/hypoglycemia/septic shock. 2. Septic shock with history of endocarditis, source questionable. This patient had a pacemaker in the chest and also has AV graft. bld cx pending so far, [facility] 3. Severe anion gap acidosis secondary to hypovolemia/ septic shock with lactic acidosis, resolved 4 Respiratory failure s/p intubation 4. End-stage renal disease on hemodialysis secondary to right kidney atrophy, chronic tubulointerstitial nephritis. 5. Elevated troponin, likely secondary to acute coronary syndrome. non STEMI 6. Chronic atrial fibrillation. 7. Cardiomyopathy, status post pacemaker. 8. Chronic thrombocytopenia. with acute plt drop 9. Chronic megaloblastic anemia. 10. Abnormal LFTs with elevated bilirubin level.? hemolysis 11. Leukocytosis. 12. Anemia, megaloblastic with acute drop r/o hemolysis 13. Hypokalemia 14. hx retinitis pigmentosa with blindness 15. Hypocalcemia Assessment/Plan (Daily) -poor prognosis -pt is off sedation, not responsive --off pressors --c.w HD, one today -platelets will be transfused Consultation Date/Type/Reason Admit Date/Time July 22, 2018 at 09:09 Initial Consult Date 07/23/18 Type of Consult nephrology Requesting Provider: TRINITY ELENA Date/Time of Note DATE: 07/28/18 TIME: 11:29 24 HR Interval Summary Subjective hx not possible: pt non-verbal, pt critical status Exam/Review of Systems Exam Vitals Vital Signs Date Temp Pulse Resp B/P (MAP) Pulse Ox O2 O2 Flow FiO2 Time Delivery Rate 07/28/18 94.8 79 14 107/89 100 Mechanical 08:00 (95) Ventilator 07/28/18 30 07:23 Intake and Output 07/27/18 07/27/18 07/28/18 1515:00 23:00 07:00 IntakeIntake Total 620 ml 490 ml 420 ml BalanceBalance 620 ml 490 ml 420 ml Exam right arm AV fistula Constitutional: non-verbal Head: normocephalic Neck: supple Respiratory: diminished breath sounds Gastrointestinal: soft, distended, other (NG tube) Musculoskeletal: muscle weakness Skin: other (wounds on buttocks) Additional Comments anasarca, right side is more swollen than left Results Result Diagram: 07/28/18 0404 07/28/18 0404 Results 24hrs Laboratory Tests Test 07/27/18 12:58 07/27/18 17:50 07/27/18 20:57 07/28/18 00:18 Bedside Glucose 142 154 164 176 Test 07/28/18 04:04 07/28/18 04:07 07/28/18 05:09 07/28/18 09:32 White Blood 5.0 Count Red Blood Count 3.18 L Hemoglobin 10.4 L Hematocrit 31.6 L Mean Corpuscular 99.4 Volume Mean Corpuscular 32.7 Hemoglobin Mean Corpuscular 32.9 Hemoglobin Isadora nt Red Cell 25.7 H Distribution Width Platelet Count 5 #*L Mean Platelet Volume Immature 1.800 H Granulocytes % Neutrophils % Segmented 59 Neutrophils % (Manual) Band Neutrophils 6 H % (Manual) Lymphocytes % Lymphocytes % 14 L (Manual) Monocytes % Monocytes % 18 H (Manual) Eosinophils % Basophils % Myelocytes % 1 H (Manual) Promyelocytes % 2 H (Manual) Nucleated Red 27 H Blood Cells % Immature 0.090 H Granulocytes # Neutrophils # Neutrophils # 3.0 (Manual) Band Neutrophils 0.3 # Lymphocytes 0.7 L (Manual) Lymphocytes # Monocytes # Monocytes # 0.9 (Manual) Eosinophils # Basophils # Myelocytes # 0.0 Promyelocytes # 0.1 H Nucleated Red Blood Cells # Platelet SIG DECREASED Estimate Giant Platelets 2 H Poikilocytosis 3+ Anisocytosis 3+ Macrocytosis 2+ Target Cells 1+ Prothrombin Time 35.7 H Prothrombin Time 2.8 Ratio INR 3.57 International Normalized Ratio Activated 41.6 H Partial Thrombop last Time Sodium Level 135 Potassium Level 3.9 Chloride Level 93 L Carbon Dioxide 20 L Level Anion Gap 22 H Blood Urea 39 #H Nitrogen Creatinine 2.16 H Est Glomerular 27 L Filtrat Rate mL/min Glucose Level 191 Calcium Level 7.2 L Phosphorus Level 2.5 Magnesium Level 2.0 Lipase 301 H Bedside Glucose 194 193 Lab Scanned BLOOD TRANSFUSI Report ON Medications Medication Current Medications Lorazepam (Ativan) 0.5 mg Q6H PRN IV .ANXIETY; Start 07/22/18 at 10:30 Ondansetron HCl (Zofran Inj) 4 mg Q6H PRN IV NAUSEA/VOMITING; Start 07/22/18 at 10:30 Vancomycin HCl (Vanco Iv Per Pharmacy) VANCOMYCIN PER PHARMACY PER PROTOCOL XX ; Start 07/22/18 at 10:30 Phenylephrine HCl 250 ml @ 75 mls/hr TITRATE IV ; Start 07/22/18 at 12:00 Acetaminophen (Tylenol Supp) 650 mg Q4H PRN AR TEMP > 37C; Start 07/22/18 at 12:30 Meperidine HCl (Demerol) 12.5 mg Q4H PRN IV POST OPERATIVE SHIVERING; Start 07/22/18 at 12:30 Meperidine HCl (Demerol) 25 mg Q4H PRN IV POST OPERATIVE SHIVERING; Start 07/22/18 at 12:30 Eye Lubricant (Akwa Oint) 1 applic Q6 BOTH EYES Last administered on 07/28/18 05:34; Admin Dose 1 APPLIC; Start 07/22/18 at 18:00 Eye Lubricant (Artificial Tears Oph) 2 drop Q6 BOTH EYES Last administered on 07/28/18 05:34; Admin Dose 2 DROP; Start 07/22/18 at 18:00 Norepinephrine 250 ml @ 1.875 mls/ hr TITRATE IV Last administered on 07/23/18 01:01; Admin Dose 22.5 MLS/HR; Start 07/22/18 at 13:00 Docusate Sodium (Colace Liquid Cup) 100 mg BID NGT Last administered on 07/27/18 20:59; Admin Dose 100 MG; Start 07/22/18 at 22:00 Midazolam HCl 50 ml @ 1 mls/hr TITRATE IV Last administered on 07/25/18 05:18; Admin Dose 3 MLS/HR; Start 07/23/18 at 02:00 Famotidine (Pepcid) 20 mg DAILY NGT Last administered on 07/28/18 09:26; Admin Dose 20 MG; Start 07/23/18 at 12:00 Diagnostic Test (Pha) (Accu-Chek) 1 ea Q4 XX Last administered on 07/28/18 09 :36; Admin Dose 1 EA; Start 07/23/18 at 13:00 Albumin Human 100 ml @ 100 mls/hr WITH DIALYSIS PRN IV SBP <90 DURING DIALYSIS Last administered on 5/22/19at 18:07; Admin Dose 100 MLS/HR; Start 07/23/18 at 18:00 Miscellaneous Information (* Miscellaneous Pharmacy Order) Treatment of Hypoglycemia: 1.BG 51... Per protocol XX ; Start 07/24/18 at 02:00 Miscellaneous Information 1 ea NOTE XX ; Start 07/24/18 at 02:30 Glucose (Glutose) 15 gm Q15M PRN PO DECREASED GLUCOSE; Start 07/24/18 at 02:30 Glucose (Glutose) 22.5 gm Q15M PRN PO DECREASED GLUCOSE; Start 07/24/18 at 02:30 Dextrose (D50w Syringe) 25 ml Q15M PRN IV DECREASED GLUCOSE Last administered on 07/25/18at 23:07; Admin Dose 25 ML; Start 07/24/18 at 02:30 Dextrose (D50w Syringe) 50 ml Q15M PRN IV DECREASED GLUCOSE; Start 07/24/18 at 02:30 Glucagon (Glucagen) 1 mg Q15M PRN IM DECREASED GLUCOSE; Start 07/24/18 at 02:30 Glucose (Glutose) 15 gm Q15M PRN BUCCAL DECREASED GLUCOSE; Start 07/24/18 at 02:30 Cefepime HCl 50 ml @ 100 mls/hr DAILY IVPB Last administered on 07/28/18at 09:26; Admin Dose 100 MLS/HR; Start 07/24/18 at 12:30 Calcium Acetate (Phoslo) 1,334 mg TID NGT Last administered on 07/28/18at 09:27; Admin Dose 1,334 MG; Start 07/25/18 at 13:00 Metronidazole (Flagyl) 500 mg Q8 NGT Last administered on 07/28/18at 05:33; Admin Dose 500 MG; Start 07/27/18 at 22:00 Acetaminophen (Tylenol Liquid) 650 mg Q4H PRN NGT TEMP > 37C; Start 07/28/18 at 00:30 Aspirin (Aspirin) 81 mg DAILY NGT Last administered on 07/28/18at 09:28; Admin Dose 81 MG; Start 07/28/18 at 09:00 Multivit/Ca Carb/ B Cmplx/FA/Prenat (Lalita-Abigail) 1 tab DAILY NGT Last administered on 07/28/18at 09:26; Admin Dose 1 TAB; Start 07/28/18 at 09:00 Miscellaneous Information (*Rx Drug Level Order Reminder*) VANCO RANDOM @ 0,500 0500 ONCE XX ; Start 07/29/18 at 05:00; Stop 07/29/18 at 05:01 Hydrocortisone (Solu-Cortef) 100 mg Q8 IV ; Start 07/28/18 at 14:00 Diagnostic Test (Pha) (Accu-Chek) 1 ea 02 XX ; Start 07/29/18 at 02:00 Insulin Aspart (Novolog Insulin Pen) NOVOLOG *MILD* ALGORITHM WITH MEALS BEDTIME SC ; Start 07/28/18 at 11:30 KIM INGRAM July 28, 2018 11:35
--- NOTE | 2018-07-28 11:38 | CONS ---
Assessment/Plan Assessment/Plan Hospital Course (Demo Recall) ID PROGRESS NOTE CURRENT ABX: DAY #=> Vanco IV + Cefepime + Flagyl 07/27/18 0441 07/27/18 0441 Hx of Present Illness * 27-year-old woman with history of end-stage kidney disease hemodialysis dependent was brought in by EMS from home for confusion and altered mental status. Subsequently went into cardiac arrest with ROSC. History of pulmonary edema and heart failure with EF of 45%, end-stage kidney disease hemodialysis dependent, history of heart block with pacemaker, hypertension, anemia of chronic disease, blind, thrombocytopenia * History of Surgery: Yes (AVF PLACEMENT 2014, GRAFT 2014, PACEMAKER 2006 ) 24H INTERVAL SUMMARY * No changes -- unresponsive acute anoxic brain injurty -- Encephalopathic on the Vent - parents are present * Indwelling: Endotracheal tube, NG tube, right subclavian triple-lumen catheter, right upper extremity AV fistula, PPM IMAGING * 07/27/18 CXR:IMPRESSION: Lines and tubes are in place. There is likely inter stitial edema with a layering left pleural effusion. Cardiomegaly, stable * 07/26/18 CXR: IMPRESSION:1. Cardiomegaly.2. Haziness in the perihilar and lower lung regions may all be due to pulmonary edema however rule out inflammatory infiltrates.3. Probable mild pulmonary vascular congestion.4. Tiny right pleural effusion. * 07/27/[address]: * CT of the brain again demonstrates hemorrhagic conversion of bilateral cerebellar infarcts, stable. No new bleeding is seen. * There is mild narrowing of the fourth ventricle secondary to cerebellar edema however no evidence of hydrocephalous is present. * Volume loss with microvascular changes are again seen within the cerebral hemispheres, stable. * Stable appearance of bilateral sphenoid sinusitis. MICRO/OTHER * 07/22/18 BCX (-); (-)MRSA nares PHYSICAL EXAMINATION: GENERAL: VSS, Critically ill on the VEnt HEENT: AT, NC, puffy eyes NECK: WNL CHEST: Coarse BS ABD: Soft, ND EXTREMITIES: Puffy edema, dry,cyanotic SKIN: No rash, no diaphoresis ID ASSESSMENT 27 yo F admit with: 1. Severe sepsis, status post shock 2. S/p PEA arrest 3. Acute CVA 4. Acute on chronic sinusitis 5. Colitis 6. S/p MSSA bacteremia per report from [facility] * Dx Endocarditis and placed on Rifampin + Ceftriaxone 7. ESRD 8. SZ do 9. CAD/Hx PPM 10. Anemia 11. Thrombocytopenia 12. DM 13. Increased lipase==> no evidence of pancreatitis on the CAT scan (-)MRSA Nares ABX ALLERGIES: QUINOLONES INVASIVES: PIV CURRENT ABX: DAY # => Vanco IV + Cefepime + Flagyl ID RECOMMENDATIONS/PLAN: 1. Continue Vanco IV for MSSA bacteremia ?Endocarditis 2. DC Cefepime and Flagyl due to persistent severe thrombocytopenia 3. Add GENT empiric GNR for HCAP post HD = less likely to cause cytotoxic bone marrow suppression . Consultation Date/Type/Reason Admit Date/Time July 22, 2018 at 09:09 Initial Consult Date 07/23/18 Requesting Provider: TRINITY ELENA Date/Time of Note DATE: 07/28/18 TIME: 11:32 Exam/Review of Systems Exam Vitals Vital Signs Date Temp Pulse Resp B/P (MAP) Pulse Ox O2 O2 Flow FiO2 Time Delivery Rate 07/28/18 94.8 79 14 107/89 100 Mechanical 08:00 (95) Ventilator 07/28/18 30 07:23 Intake and Output 07/27/18 07/27/18 07/28/18 1515:00 23:00 07:00 IntakeIntake Total 620 ml 490 ml 420 ml BalanceBalance 620 ml 490 ml 420 ml Results Result Diagram: 07/28/18 0404 07/28/18 0404 Results 24hrs Laboratory Tests Test 07/27/18 12:58 07/27/18 17:50 07/27/18 20:57 07/28/18 00:18 Bedside Glucose 142 154 164 176 Test 07/28/18 04:04 07/28/18 04:07 07/28/18 05:09 07/28/18 09:32 White Blood 5.0 Count Red Blood Count 3.18 L Hemoglobin 10.4 L Hematocrit 31.6 L Mean Corpuscular 99.4 Volume Mean Corpuscular 32.7 Hemoglobin Mean Corpuscular 32.9 Hemoglobin Isadora nt Red Cell 25.7 H Distribution Width Platelet Count 5 #*L Mean Platelet Volume Immature 1.800 H Granulocytes % Neutrophils % Segmented 59 Neutrophils % (Manual) Band Neutrophils 6 H % (Manual) Lymphocytes % Lymphocytes % 14 L (Manual) Monocytes % Monocytes % 18 H (Manual) Eosinophils % Basophils % Myelocytes % 1 H (Manual) Promyelocytes % 2 H (Manual) Nucleated Red 27 H Blood Cells % Immature 0.090 H Granulocytes # Neutrophils # Neutrophils # 3.0 (Manual) Band Neutrophils 0.3 # Lymphocytes 0.7 L (Manual) Lymphocytes # Monocytes # Monocytes # 0.9 (Manual) Eosinophils # Basophils # Myelocytes # 0.0 Promyelocytes # 0.1 H Nucleated Red Blood Cells # Platelet SIG DECREASED Estimate Giant Platelets 2 H Poikilocytosis 3+ Anisocytosis 3+ Macrocytosis 2+ Target Cells 1+ Prothrombin Time 35.7 H Prothrombin Time 2.8 Ratio INR 3.57 International Normalized Ratio Activated 41.6 H Partial Thrombop last Time Sodium Level 135 Potassium Level 3.9 Chloride Level 93 L Carbon Dioxide 20 L Level Anion Gap 22 H Blood Urea 39 #H Nitrogen Creatinine 2.16 H Est Glomerular 27 L Filtrat Rate mL/min Glucose Level 191 Calcium Level 7.2 L Phosphorus Level 2.5 Magnesium Level 2.0 Lipase 301 H Bedside Glucose 194 193 Lab Scanned BLOOD TRANSFUSI Report ON Medications Medication Current Medications Lorazepam (Ativan) 0.5 mg Q6H PRN IV .ANXIETY; Start 07/22/18 at 10:30 Ondansetron HCl (Zofran Inj) 4 mg Q6H PRN IV NAUSEA/VOMITING; Start 07/22/18 at 10:30 Vancomycin HCl (Vanco Iv Per Pharmacy) VANCOMYCIN PER PHARMACY PER PROTOCOL XX ; Start 07/22/18 at 10:30 Phenylephrine HCl 250 ml @ 75 mls/hr TITRATE IV ; Start 07/22/18 at 12:00 Acetaminophen (Tylenol Supp) 650 mg Q4H PRN MD TEMP > 37C; Start 07/22/18 at 12:30 Meperidine HCl (Demerol) 12.5 mg Q4H PRN IV POST OPERATIVE SHIVERING; Start 07/22/18 at 12:30 Meperidine HCl (Demerol) 25 mg Q4H PRN IV POST OPERATIVE SHIVERING; Start 07/22/18 at 12:30 Eye Lubricant (Akwa Oint) 1 applic Q6 BOTH EYES Last administered on 07/28/18at 05:34; Admin Dose 1 APPLIC; Start 07/22/18 at 18:00 Eye Lubricant (Artificial Tears Oph) 2 drop Q6 BOTH EYES Last administered on 07/28/18 05:34; Admin Dose 2 DROP; Start 07/22/18 at 18:00 Norepinephrine 250 ml @ 1.875 mls/ hr TITRATE IV Last administered on 07/23/18at 01:01; Admin Dose 22.5 MLS/HR; Start 07/22/18 at 13:00 Docusate Sodium (Colace Liquid Cup) 100 mg BID NGT Last administered on at 20:59; Admin Dose 100 MG; Start 07/22/18 at 22:00 Midazolam HCl 50 ml @ 1 mls/hr TITRATE IV Last administered on 07/25/18 05:18; Admin Dose 3 MLS/HR; Start 07/23/18 at 02:00 Famotidine (Pepcid) 20 mg DAILY NGT Last administered on 07/28/18 09:26; Admin Dose 20 MG; Start 07/23/18 at 12:00 Diagnostic Test (Pha) (Accu-Chek) 1 ea Q4 XX Last administered on 07/28/18 09:36; Admin Dose 1 EA; Start 07/23/18 at 13:00 Albumin Human 100 ml @ 100 mls/hr WITH DIALYSIS PRN IV SBP <90 DURING DIALYSIS Last administered on 07/23/18 18:07; Admin Dose 100 MLS/HR; Start 07/23/18 at 18:00 Miscellaneous Information (* Miscellaneous Pharmacy Order) Treatment of Hypoglycemia: 1.BG 51... Per protocol XX ; Start 07/24/18 at 02:00 Miscellaneous Information 1 ea NOTE XX ; Start 07/24/18 at 02:30 Glucose (Glutose) 15 gm Q15M PRN PO DECREASED GLUCOSE; Start 07/24/18 at 02:30 Glucose (Glutose) 22.5 gm Q15M PRN PO DECREASED GLUCOSE; Start 07/24/18 at 02:30 Dextrose (D50w Syringe) 25 ml Q15M PRN IV DECREASED GLUCOSE Last administered on 07/25/18 23:07; Admin Dose 25 ML; Start 07/24/18 at 02:30 Dextrose (D50w Syringe) 50 ml Q15M PRN IV DECREASED GLUCOSE; Start 07/24/18 at 02:30 Glucagon (Glucagen) 1 mg Q15M PRN IM DECREASED GLUCOSE; Start 07/24/18 at 02:30 Glucose (Glutose) 15 gm Q15M PRN BUCCAL DECREASED GLUCOSE; Start 07/24/18 at 02:30 Cefepime HCl 50 ml @ 100 mls/hr DAILY IVPB Last administered on 07/28/18at 09:26; Admin Dose 100 MLS/HR; Start 07/24/18 at 12:30 Calcium Acetate (Phoslo) 1,334 mg TID NGT Last administered on 07/28/18at 09:27; Admin Dose 1,334 MG; Start 07/25/18 at 13:00 Metronidazole (Flagyl) 500 mg Q8 NGT Last administered on 07/28/18at 05:33; Admin Dose 500 MG; Start 07/27/18 at 22:00 Acetaminophen (Tylenol Liquid) 650 mg Q4H PRN NGT TEMP > 37C; Start 07/28/18 at 00:30 Aspirin (Aspirin) 81 mg DAILY NGT Last administered on 07/28/18at 09:28; Admin Dose 81 MG; Start 07/28/18 at 09:00 Multivit/Ca Carb/ B Cmplx/FA/Prenat (Lalita-Abigail) 1 tab DAILY NGT Last ad ministered on 07/28/18at 09:26; Admin Dose 1 TAB; Start 07/28/18 at 09:00 Miscellaneous Information (*Rx Drug Level Order Reminder*) VANCO RANDOM @ 0,500 0500 ONCE XX ; Start 07/29/18 at 05:00; Stop 07/29/18 at 05:01 Hydrocortisone (Solu-Cortef) 100 mg Q8 IV ; Start 07/28/18 at 14:00 Diagnostic Test (Pha) (Accu-Chek) 1 ea 02 XX ; Start 07/29/18 at 02:00 Insulin Aspart (Novolog Insulin Pen) NOVOLOG *MILD* ALGORITHM WITH MEALS BEDTIME SC ; Start 07/28/18 at 11:30 GRICEL DAVE NP July 28, 2018 11:38
[2018-07-28] MEDS ORDERED: GENTAMICIN 60 MG in SOD CHLORIDE 0.9% 50 ML IVPB SCH (12:00)
[2018-07-28] MEDS ORDERED: GENTAMICIN IV PER PHARMACY XX SCH (12:00)
--- NOTE | 2018-07-28 15:45 | PN ---
Date/Time of Note Date/Time of Note DATE: 07/28/18 TIME: 15:44 Assessment/Plan VTE Prophylaxis Risk score (from [facility])>0 risk: 9 SCD applied (from [facility]): Yes Pharmacological prophylaxis: NA/contraindicated Pharm contraindication: thrombocytopenia Lines/Catheters IV Catheter Type (from [facility]): Central Line Central line still needed: Yes Urinary Cath still in place: No Assessment/Plan Assessment/Plan 1. Thrombocytopenia, likely related to DIC, rule out autoimmune thrombocytopenia. 2. Coagulopathy due to vitamin K deficiency, partially corrected. 3. Renal failure. 4. 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 DISCUSSION: Patient administered platelets, FFP with minimal response. Patient's ICH has stabilized, but in further discussion with palliative care, family has opted for comfort measures This decision seems appropriate. Patient will be extubated this evening. Result Diagram: 07/28/18 0404 07/28/18 0404 Results 24hrs Laboratory Tests Test 07/27/18 17:50 07/27/18 20:57 07/28/18 00:18 07/28/18 04:04 Bedside Glucose 154 164 176 White Blood 5.0 Count Red Blood Count 3.18 L Hemoglobin 10.4 L Hematocrit 31.6 L Mean Corpuscular 99.4 Volume Mean Corpuscular 32.7 Hemoglobin Mean Corpuscular 32.9 Hemoglobin Isadora nt Red Cell 25.7 H Distribution Width Platelet Count 5 #*L Mean Platelet Volume Immature 1.800 H Granulocytes % Neutrophils % Segmented 59 Neutrophils % (Manual) Band Neutrophils 6 H % (Manual) Lymphocytes % Lymphocytes % 14 L (Manual) Monocytes % Monocytes % 18 H (Manual) Eosinophils % Basophils % Myelocytes % 1 H (Manual) Promyelocytes % 2 H (Manual) Nucleated Red 27 H Blood Cells % Immature 0.090 H Granulocytes # Neutrophils # Neutrophils # 3.0 (Manual) Band Neutrophils 0.3 # Lymphocytes 0.7 L (Manual) Lymphocytes # Monocytes # Monocytes # 0.9 (Manual) Eosinophils # Basophils # Myelocytes # 0.0 Promyelocytes # 0.1 H Nucleated Red Blood Cells # Platelet SIG DECREASED Estimate Giant Platelets 2 H Poikilocytosis 3+ Anisocytosis 3+ Macrocytosis 2+ Target Cells 1+ Prothrombin Time 35.7 H Prothrombin Time 2.8 Ratio INR 3.57 International Normalized Ratio Activated 41.6 H Partial Thrombop last Time Sodium Level 135 Potassium Level 3.9 Chloride Level 93 L Carbon Dioxide 20 L Level Anion Gap 22 H Blood Urea 39 #H Nitrogen Creatinine 2.16 H Est Glomerular 27 L Filtrat Rate mL/min Glucose Level 191 Calcium Level 7.2 L Phosphorus Level 2.5 Magnesium Level 2.0 Lipase 301 H Test 07/28/18 04:07 07/28/18 05:09 07/28/18 09:32 07/28/18 12:18 Bedside Glucose 194 193 176 Lab Scanned BLOOD TRANSFUSI Report ON Test 07/28/18 14:05 Bedside Glucose 178 Subjective 24 Hr Interval Summary Free Text/Dictation Patient intubated. Family does not note patient to be responsive Exam/Review of Systems Exam Vitals Vital Signs Date Temp Pulse Resp B/P (MAP) Pulse Ox O2 O2 Flow FiO2 Time Delivery Rate 07/28/18 83 12:00 07/28/18 14 99 30 11:31 07/28/18 94.8 107/89 Mechanical 08:00 (95) Ventilator Intake and Output 07/27/18 07/27/18 07/28/18 1515:00 23:00 07:00 IntakeIntake Total 620 ml 490 ml 420 ml BalanceBalance 620 ml 490 ml 420 ml Constitutional: non-verbal, frail Neck: supple, non-tender Respiratory: clear to auscultation, normal air movement Cardiovascular: regular rate and rhythm, nl pulses Gastrointestinal: soft, non-tender Extremities: normal pulses Results Results 24hrs Laboratory Tests Test 07/27/18 17:50 07/27/18 20:57 07/28/18 00:18 07/28/18 04:04 Bedside Glucose 154 164 176 White Blood 5.0 Count Red Blood Count 3.18 L Hemoglobin 10.4 L Hematocrit 31.6 L Mean Corpuscular 99.4 Volume Mean Corpuscular 32.7 Hemoglobin Mean Corpuscular 32.9 Hemoglobin Isadora nt Red Cell 25.7 H Distribution Width Platelet Count 5 #*L Mean Platelet Volume Immature 1.800 H Granulocytes % Neutrophils % Segmented 59 Neutrophils % (Manual) Band Neutrophils 6 H % (Manual) Lymphocytes % Lymphocytes % 14 L (Manual) Monocytes % Monocytes % 18 H (Manual) Eosinophils % Basophils % Myelocytes % 1 H (Manual) Promyelocytes % 2 H (Manual) Nucleated Red 27 H Blood Cells % Immature 0.090 H Granulocytes # Neutrophils # Neutrophils # 3.0 (Manual) Band Neutrophils 0.3 # Lymphocytes 0.7 L (Manual) Lymphocytes # Monocytes # Monocytes # 0.9 (Manual) Eosinophils # Basophils # Myelocytes # 0.0 Promyelocytes # 0.1 H Nucleated Red Blood Cells # Platelet SIG DECREASED Estimate Giant Platelets 2 H Poikilocytosis 3+ Anisocytosis 3+ Macrocytosis 2+ Target Cells 1+ Prothrombin Time 35.7 H Prothrombin Time 2.8 Ratio INR 3.57 International Normalized Ratio Activated 41.6 H Partial Thrombop last Time Sodium Level 135 Potassium Level 3.9 Chloride Level 93 L Carbon Dioxide 20 L Level Anion Gap 22 H Blood Urea 39 #H Nitrogen Creatinine 2.16 H Est Glomerular 27 L Filtrat Rate mL/min Glucose Level 191 Calcium Level 7.2 L Phosphorus Level 2.5 Magnesium Level 2.0 Lipase 301 H Test 07/28/18 04:07 07/28/18 05:09 07/28/18 09:32 07/28/18 12:18 Bedside Glucose 194 193 176 Lab Scanned BLOOD TRANSFUSI Report ON Test 07/28/18 14:05 Bedside Glucose 178 Medications Medication Current Medications Lorazepam (Ativan) 0.5 mg Q6H PRN IV .ANXIETY; Start 07/22/18 at 10:30 Ondansetron HCl (Zofran Inj) 4 mg Q6H PRN IV NAUSEA/VOMITING; Start 07/22/18 at 10:30 Vancomycin HCl (Vanco Iv Per Pharmacy) VANCOMYCIN PER PHARMACY PER PROTOCOL XX ; Start 07/22/18 at 10:30 Phenylephrine HCl 250 ml @ 75 mls/hr TITRATE IV ; Start 07/22/18 at 12:00 Acetaminophen (Tylenol Supp) 650 mg Q4H PRN [place] TEMP > 37C; Start 07/22/18 at 12:30 Meperidine HCl (Demerol) 12.5 mg Q4H PRN IV POST OPERATIVE SHIVERING; Start 07/22/18 at 12:30 Meperidine HCl (Demerol) 25 mg Q4H PRN IV POST OPERATIVE SHIVERING; Start 07/22/18 at 12:30 Eye Lubricant (Akwa Oint) 1 applic Q6 BOTH EYES Last administered on 07/28/18at 13:59; Admin Dose 1 APPLIC; Start 07/22/18 at 18:00 Eye Lubricant (Artificial Tears Oph) 2 drop Q6 BOTH EYES Last administered on 07/28/18 13:59; Admin Dose 2 DROP; Start 07/22/18 at 18:00 Norepinephrine 250 ml @ 1.875 mls/ hr TITRATE IV Last administered on 07/23/18 01:01; Admin Dose 22.5 MLS/HR; Start 07/22/18 at 13:00 Docusate Sodium (Colace Liquid Cup) 100 mg BID NGT Last administered on 07/27/18 20:59; Admin Dose 100 MG; Start 07/22/18 at 22:00 Midazolam HCl 50 ml @ 1 mls/hr TITRATE IV Last administered on 07/25/18 05:18; Admin Dose 3 MLS/HR; Start 07/23/18 at 02:00 Famotidine (Pepcid) 20 mg DAILY NGT Last administered on 07/28/18 09:26; Admin Dose 20 MG; Start 07/23/18 at 12:00 Diagnostic Test (Pha) (Accu-Chek) 1 ea Q4 XX Last administered on 07/28/18 13:00; Admin Dose 1 EA; Start 07/23/18 at 13:00 Albumin Human 100 ml @ 100 mls/hr WITH DIALYSIS PRN IV SBP <90 DURING DIALYSIS Last administered on 07/23/18 18:07; Admin Dose 100 MLS/HR; Start 07/23/18 at 18:00 Miscellaneous Information (* Miscellaneous Pharmacy Order) Treatment of Hypoglycemia: 1.BG 51... Per protocol XX ; Start 07/24/18 at 02:00 Miscellaneous Information 1 ea NOTE XX ; Start 07/24/18 at 02:30 Glucose (Glutose) 15 gm Q15M PRN PO DECREASED GLUCOSE; Start 07/24/18 at 02:30 Glucose (Glutose) 22.5 gm Q15M PRN PO DECREASED GLUCOSE; Start 07/24/18 at 02:30 Dextrose (D50w Syringe) 25 ml Q15M PRN IV DECREASED GLUCOSE Last administered on 07/25/18 23:07; Admin Dose 25 ML; Start 07/24/18 at 02:30 Dextrose (D50w Syringe) 50 ml Q15M PRN IV DECREASED GLUCOSE; Start 07/24/18 at 02:30 Glucagon (Glucagen) 1 mg Q15M PRN IM DECREASED GLUCOSE; Start 07/24/18 at 02:30 Glucose (Glutose) 15 gm Q15M PRN BUCCAL DECREASED GLUCOSE; Start 07/24/18 at 02:30 Calcium Acetate (Phoslo) 1,334 mg TID NGT Last administered on 07/28/18at 14:01; Admin Dose 1,334 MG; Start 07/25/18 at 13:00 Acetaminophen (Tylenol Liquid) 650 mg Q4H PRN NGT TEMP > 37C; Start 07/28/18 at 00:30 Aspirin (Aspirin) 81 mg DAILY NGT Last administered on 07/28/18at 09:28; Admin Dose 81 MG; Start 07/28/18 at 09:00 Multivit/Ca Carb/ B Cmplx/FA/Prenat (Lalita-Abigail) 1 tab DAILY NGT Last administered on 07/28/18at 09:26; Admin Dose 1 TAB; Start 07/28/18 at 09:00 Miscellaneous Information (*Rx Drug Level Order Reminder*) VANCO RANDOM @ 0,500 0500 ONCE XX ; Start 07/29/18 at 05:00; Stop 07/29/18 at 05:01 Hydrocortisone (Solu-Cortef) 100 mg Q8 IV Last administered on 07/28/18at 15:37; Admin Dose 100 MG; Start 07/28/18 at 14:00 Diagnostic Test (Pha) (Accu-Chek) 1 ea 02 XX ; Start 07/29/18 at 02:00 Insulin Aspart (Novolog Insulin Pen) NOVOLOG *MILD* ALGORITHM WITH MEALS BEDTIME SC Last administered on 07/28/18at 12:25; Admin Dose 1 UNIT; Start 07/28/18 at 11:30 Gentamicin Sulfate 60 mg/ Sodium Chloride 51.5 ml @ 103 mls/hr AFTER DIALYSIS IVPB ; Start 07/28/18 at 12:00 Gentamicin Sulfate (Gentamicin Iv Per Pharmacy) PER PHARMACY DOSING NOTE XX ; Start 07/28/18 at 12:00 YOUNG GRAVES MD July 28, 2018 15:45
--- NOTE | 2018-07-28 15:48 | CONS ---
Assessment/Plan Assessment/Plan Assessment/Plan (Daily) Late entry pt seen first July 26 and long conversations were done with family at that time.. Dictation service is down and I cannot document her extensive history beginning as a child. When service is up again extensive Palliative Care note will be completed At this time I have had an hour discussion with first degree family and given options for on-going level of care. They are devastated that pt has an extremely poor chance of complete recovery. Additionally there is much discord amongst family blaming one another for pts ultimate demise. They were told options and that patient should be allowed to a dignified , non painful end of life.. Family reconciled for the inevitable . Will change to comfort measures tonight and terminal extubation. Consultation Date/Type/Reason Admit Date/Time July 22, 2018 at 09:09 Date/Time of Note DATE: 07/28/18 TIME: 15:19 Past Medical History Home Meds Reported Medications Sevelamer Hcl* (Renagel*) 800 Mg Tablet, 800 MG PO WITH MEALS, TAB 07/22/18 Folic Acid/Vitamin B Comp W-C (Nephrocaps Capsule) 1 Mg Capsule, 1 MG PO DAILY, CAP 07/22/18 Folic Acid* (Folic Acid*) 1 Mg Tablet, 1 MG PO DAILY, TAB 07/22/18 Diltiazem Hcl* (Cardizem SR*) 60 Mg Capsr, 60 MG PO Q12, #60 CAP 07/22/18 Apixaban* (Eliquis*) 5 Mg Tablet, 5 MG PO BID, TAB 07/22/18 Discontinued Reported Medications Folic Acid/Vitamin B Comp W-C (Nephrocaps Capsule) 1 Mg Capsule, 1 TAB PO DAILY, CAP 11/06/16 Apixaban* (Eliquis*) 5 Mg Tablet, 2.5 MG PO BID, TAB 11/06/16 Carboxymethylcellulose Sodium* (Refresh Tears*) 15 Ml Drops, 1 DROP BOTH EYES TI D, #1 EA 11/06/16 Sevelamer Hcl* (Renagel*) 800 Mg Tablet, 800 MG PO WITH MEALS PRN for PRN, TAB 11/06/16 Diltiazem Hcl* (Cardizem SR*) 60 Mg Capsr, 60 MG PO Q12, #60 CAP 11/06/16 Folic Acid* (Folic Acid*) 1 Mg Tablet, 1 MG PO DAILY, TAB 09/17/13 Discontinued Scripts Ondansetron Hcl* (Zofran*) 4 Mg Tablet, 4 MG PO Q6H PRN for NAUSEA AND OR VOMITING, #30 TAB Prov:HARDIN,COTY V. CORD TIRE BUILDER 11/06/16 Famotidine* (Pepcid*) 20 Mg Tablet, 20 MG PO BID, #15 TAB Prov:HARDIN,COTY V. CORD TIRE BUILDER 11/06/16 Medications Current Medications Lorazepam (Ativan) 0.5 mg Q6H PRN IV .ANXIETY; Start 07/22/18 at 10:30 Ondansetron HCl (Zofran Inj) 4 mg Q6H PRN IV NAUSEA/VOMITING; Start 07/22/18 at 10:30 Vancomycin HCl (Vanco Iv Per Pharmacy) VANCOMYCIN PER PHARMACY PER PROTOCOL XX ; Start 07/22/18 at 10:30 Phenylephrine HCl 250 ml @ 75 mls/hr TITRATE IV ; Start 07/22/18 at 12:00 Acetaminophen (Tylenol Supp) 650 mg Q4H PRN [place] TEMP > 37C; Start 07/22/18 at 12:30 Meperidine HCl (Demerol) 12.5 mg Q4H PRN IV POST OPERATIVE SHIVERING; Start 07/22/18 at 12:30 Meperidine HCl (Demerol) 25 mg Q4H PRN IV POST OPERATIVE SHIVERING; Start 07/22/18 at 12:30 Eye Lubricant (Akwa Oint) 1 applic Q6 BOTH EYES Last administered on 07/28/18at 13:59; Admin Dose 1 APPLIC; Start 07/22/18 at 18:00 Eye Lubricant (Artificial Tears Oph) 2 drop Q6 BOTH EYES Last administered on 07/28/18at 13:59; Admin Dose 2 DROP; Start 07/22/18 at 18:00 Norepinephrine 250 ml @ 1.875 mls/ hr TITRATE IV Last administered on 07/23/18at 01:01; Admin Dose 22.5 MLS/HR; Start 07/22/18 at 13:00 Docusate Sodium (Colace Liquid Cup) 100 mg BID NGT Last administered on 07/27/18at 20:59; Admin Dose 100 MG; Start 07/22/18 at 22:00 Midazolam HCl 50 ml @ 1 mls/hr TITRATE IV Last administered on 07/25/18 05:18; Admin Dose 3 MLS/HR; Start 07/23/18 at 02:00 Famotidine (Pepcid) 20 mg DAILY NGT Last administered on 07/28/18 09:26; Admin Dose 20 MG; Start 07/23/18 at 12:00 Diagnostic Test (Pha) (Accu-Chek) 1 ea Q4 XX Last administered on 07/28/18at 13:00; Admin Dose 1 EA; Start 07/23/18 at 13:00 Albumin Human 100 ml @ 100 mls/hr WITH DIALYSIS PRN IV SBP <90 DURING DIALYSIS Last administered on 07/23/18at 18:07; Admin Dose 100 MLS/HR; Start 07/23/18 at 18:00 Miscellaneous Information (* Miscellaneous Pharmacy Order) Treatment of Hypoglycemia: 1.BG 51... Per protocol XX ; Start 07/24/18 at 02:00 Miscellaneous Information 1 ea NOTE XX ; Start 07/24/18 at 02:30 Glucose (Glutose) 15 gm Q15M PRN PO DECREASED GLUCOSE; Start 07/24/18 at 02:30 Glucose (Glutose) 22.5 gm Q15M PRN PO DECREASED GLUCOSE; Start 07/24/18 at 02:30 Dextrose (D50w Syringe) 25 ml Q15M PRN IV DECREASED GLUCOSE Last administered on 07/25/18at 23:07; Admin Dose 25 ML; Start 07/24/18 at 02:30 Dextrose (D50w Syringe) 50 ml Q15M PRN IV DECREASED GLUCOSE; Start 07/24/18 at 02:30 Glucagon (Glucagen) 1 mg Q15M PRN IM DECREASED GLUCOSE; Start 07/24/18 at 02:30 Glucose (Glutose) 15 gm Q15M PRN BUCCAL DECREASED GLUCOSE; Start 07/24/18 at 02:30 Calcium Acetate (Phoslo) 1,334 mg TID NGT Last administered on 07/28/18at 14:01; Admin Dose 1,334 MG; Start 07/25/18 at 13:00 Acetaminophen (Tylenol Liquid) 650 mg Q4H PRN NGT TEMP > 37C; Start 07/28/18 at 00:30 Aspirin (Aspirin) 81 mg DAILY NGT Last administered on 07/28/18at 09:28; Admin Dose 81 MG; Start 07/28/18 at 09:00 Multivit/Ca Carb/ B Cmplx/FA/Prenat (Lalita-Abigail) 1 tab DAILY NGT Last administered on 07/28/18at 09:26; Admin Dose 1 TAB; Start 07/28/18 at 09:00 Miscellaneous Information (*Rx Drug Level Order Reminder*) VANCO RANDOM @ 0,500 0500 ONCE XX ; Start 07/29/18 at 05:00; Stop 07/29/18 at 05:01 Hydrocortisone (Solu-Cortef) 100 mg Q8 IV ; Start 07/28/18 at 14:00 Diagnostic Test (Pha) (Accu-Chek) 1 ea XX ; Start 07/29/18 at 02:00 Insulin Aspart (Novolog Insulin Pen) NOVOLOG *MILD* ALGORITHM WITH MEALS BEDTIME SC Last administered on 07/28/18at 12:25; Admin Dose 1 UNIT; Start 07/28/18 at 11:30 Gentamicin Sulfate 60 mg/ Sodium Chloride 51.5 ml @ 103 mls/hr AFTER DIALYSIS IVPB ; Start 07/28/18 at 12:00 Gentamicin Sulfate (Gentamicin Iv Per Pharmacy) PER PHARMACY DOSING NOTE XX ; Start 07/28/18 at 12:00 Allergies: Coded Allergies: ciprofloxacin (Unverified Allergy, Severe, 07/22/18) heparin (Unverified Allergy, Severe, 07/22/18) levofloxacin (Unverified Allergy, Severe, 07/22/18) potassium (Unverified Allergy, Unknown, 07/22/18) Uncoded Allergies: TAPE (Allergy, Mild, 11/06/16) Past Surgical History Past Surgical Hx: other (Including but not limited to pacemaker, dialysis graft) Social History Alcohol Use: none Smoking Status: Never smoker Exam/Review of Systems Exam Vitals Vital Signs Date Temp Pulse Resp B/P (MAP) Pulse Ox O2 O2 Flow FiO2 Time Delivery Rate 07/28/18 83 12:00 07/28/18 14 99 30 11:31 07/28/18 94.8 107/89 Mechanical 08:00 (95) Ventilator Intake and Output 07/27/18 07/27/18 07/28/18 1515:00 23:00 07:00 IntakeIntake Total 620 ml 490 ml 420 ml BalanceBalance 620 ml 490 ml 420 ml Constitutional: other (non responsive to anything) Eyes: icteric, other (edematous face and neck face) ENMT: intubated Respiratory: congested cough, crackles/rales, diminished breath sounds, labored breathing Cardiovascular: irregular rhythm Gastrointestinal: bowel sounds (low active bowel sounds) Neurological: unresponsive (no response to anythhing sluggish occulocephalics no gag not overbreathing the ventilator.) Results Result Diagram: 07/28/18 0404 07/28/18 0404 Results 24hrs Laboratory Tests Test 07/27/18 17:50 07/27/18 20:57 07/28/18 00:18 07/28/18 04:04 Bedside Glucose 154 164 176 White Blood 5.0 Count Red Blood Count 3.18 L Hemoglobin 10.4 L Hematocrit 31.6 L Mean Corpuscular 99.4 Volume Mean Corpuscular 32.7 Hemoglobin Mean Corpuscular 32.9 Hemoglobin Isadora nt Red Cell 25.7 H Distribution Width Platelet Count 5 #*L Mean Platelet Volume Immature 1.800 H Granulocytes % Neutrophils % Segmented 59 Neutrophils % (Manual) Band Neutrophils 6 H % (Manual) Lymphocytes % Lymphocytes % 14 L (Manual) Monocytes % Monocytes % 18 H (Manual) Eosinophils % Basophils % Myelocytes % 1 H (Manual) Promyelocytes % 2 H (Manual) Nucleated Red 27 H Blood Cells % Immature 0.090 H Granulocytes # Neutrophils # Neutrophils # 3.0 (Manual) Band Neutrophils 0.3 # Lymphocytes 0.7 L (Manual) Lymphocytes # Monocytes # Monocytes # 0.9 (Manual) Eosinophils # Basophils # Myelocytes # 0.0 Promyelocytes # 0.1 H Nucleated Red Blood Cells # Platelet SIG DECREASED Estimate Giant Platelets 2 H Poikilocytosis 3+ Anisocytosis 3+ Macrocytosis 2+ Target Cells 1+ Prothrombin Time 35.7 H Prothrombin Time 2.8 Ratio INR 3.57 International Normalized Ratio Activated 41.6 H Partial Thrombop last Time Sodium Level 135 Potassium Level 3.9 Chloride Level 93 L Carbon Dioxide 20 L Level Anion Gap 22 H Blood Urea 39 #H Nitrogen Creatinine 2.16 H Est Glomerular 27 L Filtrat Rate mL/min Glucose Level 191 Calcium Level 7.2 L Phosphorus Level 2.5 Magnesium Level 2.0 Lipase 301 H Test 07/28/18 04:07 07/28/18 05:09 07/28/18 09:32 07/28/18 12:18 Bedside Glucose 194 193 176 Lab Scanned BLOOD TRANSFUSI Report ON Test 07/28/18 14:05 Bedside Glucose 178 Medications Medication Current Medications Lorazepam (Ativan) 0.5 mg Q6H PRN IV .ANXIETY; Start 07/22/18 at 10:30 Ondansetron HCl (Zofran Inj) 4 mg Q6H PRN IV NAUSEA/VOMITING; Start 07/22/18 at 10:30 Vancomycin HCl (Vanco Iv Per Pharmacy) VANCOMYCIN PER PHARMACY PER PROTOCOL XX ; Start 07/22/18 at 10:30 Phenylephrine HCl 250 ml @ 75 mls/hr TITRATE IV ; Start 07/22/18 at 12:00 Acetaminophen (Tylenol Supp) 650 mg Q4H PRN [place] TEMP > 37C; Start 07/22/18 at 12:30 Meperidine HCl (Demerol) 12.5 mg Q4H PRN IV POST OPERATIVE SHIVERING; Start 07/22/18 at 12:30 Meperidine HCl (Demerol) 25 mg Q4H PRN IV POST OPERATIVE SHIVERING; Start 07/22/18 at 12:30 Eye Lubricant (Akwa Oint) 1 applic Q6 BOTH EYES Last administered on 07/28/18at 13:59; Admin Dose 1 APPLIC; Start 07/22/18 at 18:00 Eye Lubricant (Artificial Tears Oph) 2 drop Q6 BOTH EYES Last administered on 07/28/18at 13:59; Admin Dose 2 DROP; Start 07/22/18 at 18:00 Norepinephrine 250 ml @ 1.875 mls/ hr TITRATE IV Last administered on 07/23/18at 01:01; Admin Dose 22.5 MLS/HR; Start 07/22/18 at 13:00 Docusate Sodium (Colace Liquid Cup) 100 mg BID NGT Last administered on 07/27/18at 20:59; Admin Dose 100 MG; Start 07/22/18 at 22:00 Midazolam HCl 50 ml @ 1 mls/hr TITRATE IV Last administered on 07/25/18 05:18; Admin Dose 3 MLS/HR; Start 07/23/18 at 02:00 Famotidine (Pepcid) 20 mg DAILY NGT Last administered on 07/28/18 09:26; Admin Dose 20 MG; Start 07/23/18 at 12:00 Diagnostic Test (Pha) (Accu-Chek) 1 ea Q4 XX Last administered on 07/28/18at 1 3:00; Admin Dose 1 EA; Start 07/23/18 at 13:00 Albumin Human 100 ml @ 100 mls/hr WITH DIALYSIS PRN IV SBP <90 DURING DIALYSIS Last administered on 07/23/18at 18:07; Admin Dose 100 MLS/HR; Start 07/23/18 at 18:00 Miscellaneous Information (* Miscellaneous Pharmacy Order) Treatment of Hypoglycemia: 1.BG 51... Per protocol XX ; Start 07/24/18 at 02:00 Miscellaneous Information 1 ea NOTE XX ; Start 07/24/18 at 02:30 Glucose (Glutose) 15 gm Q15M PRN PO DECREASED GLUCOSE; Start 07/24/18 at 02:30 Glucose (Glutose) 22.5 gm Q15M PRN PO DECREASED GLUCOSE; Start 07/24/18 at 02:30 Dextrose (D50w Syringe) 25 ml Q15M PRN IV DECREASED GLUCOSE Last administered on 07/25/18at 23:07; Admin Dose 25 ML; Start 07/24/18 at 02:30 Dextrose (D50w Syringe) 50 ml Q15M PRN IV DECREASED GLUCOSE; Start 07/24/18 at 02:30 Glucagon (Glucagen) 1 mg Q15M PRN IM DECREASED GLUCOSE; Start 07/24/18 at 02:30 Glucose (Glutose) 15 gm Q15M PRN BUCCAL DECREASED GLUCOSE; Start 07/24/18 at 02:30 Calcium Acetate (Phoslo) 1,334 mg TID NGT Last administered on 07/28/18at 14:01; Admin Dose 1,334 MG; Start 07/25/18 at 13:00 Acetaminophen (Tylenol Liquid) 650 mg Q4H PRN NGT TEMP > 37C; Start 07/28/18 at 00:30 Aspirin (Aspirin) 81 mg DAILY NGT Last administered on 07/28/18at 09:28; Admin Dose 81 MG; Start 07/28/18 at 09:00 Multivit/Ca Carb/ B Cmplx/FA/Prenat (Lalita-Abigail) 1 tab DAILY NGT Last administered on 5/27/19at 09:26; Admin Dose 1 TAB; Start 07/28/18 at 09:00 Miscellaneous Information (*Rx Drug Level Order Reminder*) VANCO RANDOM @ 0,500 0500 ONCE XX ; Start 07/29/18 at 05:00; Stop 07/29/18 at 05:01 Hydrocortisone (Solu-Cortef) 100 mg Q8 IV ; Start 07/28/18 at 14:00 Diagnostic Test (Pha) (Accu-Chek) 1 XX ; Start 07/29/18 at 02:00 Insulin Aspart (Novolog Insulin Pen) NOVOLOG *MILD* ALGORITHM WITH MEALS BEDTIME SC Last administered on 07/28/18at 12:25; Admin Dose 1 UNIT; Start 07/28/18 at 11:30 Gentamicin Sulfate 60 mg/ Sodium Chloride 51.5 ml @ 103 mls/hr AFTER DIALYSIS IVPB ; Start 07/28/18 at 12:00 Gentamicin Sulfate (Gentamicin Iv Per Pharmacy) PER PHARMACY DOSING NOTE XX ; Start 07/28/18 at 12:00 TONY COSTELLO July 28, 2018 15:35
[2018-07-28] MEDS ORDERED: LORAZEPAM 2 MG INJ IV PRN (16:30)
[2018-07-28] MEDS ORDERED: morphine (DRIP) 100 MG/100 ML 100 ML IV SCH (17:00)
[2018-07-28] MEDS ORDERED: GLUCAGON 1 MG INJ IM PRN (18:30)
[2018-07-28] MEDS ORDERED: GLUCOSE GEL 15 GRAM TUBE BUCCAL PRN (18:30)
[2018-07-28] MEDS ORDERED: DEXTROSE 50% 50 ML SYRINGE IV PRN ×2 (18:30)
[2018-07-28] MEDS ORDERED: GLUCOSE GEL 15 GRAM TUBE PO PRN ×2 (18:30)
[2018-07-28] MEDS: INSULIN ASPART [NOVOLOG] 3 ML PEN SC SCH (21:20)
[2018-07-29] VITALS (37 sets, daily range): BP systolic 89–110; BP diastolic 63–88; PULSE 0–84; RESP 0–14
[2018-07-29] MEDS: OCULAR LUBRICANT 3.5 GM OPH OINT BOTH EYES SCH ×2 (00:02→04:49)
[2018-07-29] MEDS: ARTIFICIAL TEARS 15 ML OPH BOTH EYES SCH ×2 (00:02→04:49)
[2018-07-29] MEDS: INSULIN ASPART [NOVOLOG] 3 ML PEN SC SCH ×2 (00:12→04:10)
[2018-07-29] MEDS ORDERED: ACCU-CHEK XX SCH ×2 (02:00)
[2018-07-29] MEDS: HYDROCORTISONE 100 MG INJ IV SCH (04:49)
--- NOTE | 2018-07-29 07:38 | CONS ---
Assessment/Plan Assessment/Plan Hospital Course (Demo Recall) 27 yo female presents to ICU in septic shock and elevated lipase and LFTs 1. Elevated lipase -pancreatitis vs ischemic liver -CT does not show pancreatitis 2. Abnormal LFTs likely due to ischemic liver 3. RT ischemic stroke converted to bilateral hemorrhagic stroke 3. Severe thrombocytopenia -plt 5 today 4. Sepsis secondary to pneumonia 5. ESRD 6. V-paced 7. history of methicillin-susceptible Staphylococcus aureus bacteremia. There was no evidence of any vegetation on ROSANNE and the patient's ejection fraction is 45%. 8. Elevated troponin. 9. Anemia, megaloblastic. 10. Malnutrition. 11. Mild hepatomegaly 12. Coagulopathy. 13. Jaundice. 14. Mild ascites 15. Diffuse wall thickening of colon 07/[address]: CT of the brain again demonstrates hemorrhagic conversion of bilateral cerebellar infarcts, stable. No new bleeding is seen. CT abd 07/25: 1. Diffuse wall thickening of the colon consistent with colitis. 2. Bibasilar ground-glass infiltrates or edema of the lungs with small right pleural effusion. 3. Cardiomegaly with cardiac pacer leads extending into the right heart chambers. 4. Mild hepatomegaly. 5. Severe atrophy of the bilateral kidneys. Consistent with end-stage renal disease. 6. Scattered mild ascites and mesenteric edema. 7. Anasarca. Plan Dr Gonzales spoke with family. Tentative plan to withdraw care/comfort care today per RN and Dr. Gonzales's notes. In the mean time keep SBP greater than 100, continue tube feed via NG tube, supportive ICU care, monitor LFTs, INR, and lipase. Pt examined and plan of care discussed with Dr. Herrera Consultation Date/Type/Reason Admit Date/Time July 22, 2018 at 09:09 Initial Consult Date 07/23/18 Requesting Provider: TRINITY ELENA Date/Time of Note DATE: 07/29/18 TIME: 07:14 24 HR Interval Summary Free Text/Dictation Platelets 5. Lipase trending down. Dr Sow spoke with family about comfort care and withdrawal of care. Per RN pt is having diarrhea, light brown, 3 during day shift, once last night. No evidence of GI bleeding. Pt has basic reflexes only. Jaundiced. Exam/Review of Systems Exam Vitals Vital Signs Date Temp Pulse Resp B/P (MAP) Pulse Ox O2 O2 Flow FiO2 Time Delivery Rate 5/28/19 80 12 97/77 (84) 99 Mechanical 06:00 Ventilator 07/29/18 30 04:32 07/29/18 97.5 00:00 Intake and Output 07/28/18 07/28/18 07/29/18 1515:00 23:00 07:00 IntakeIntake Total 390 ml 661 ml 140 ml BalanceBalance 390 ml 661 ml 140 ml Constitutional: non-verbal Head: normocephalic Eyes: other (jaundice, pupils equal non reactive) ENMT: intubated Respiratory: normal air movement, diminished breath sounds Cardiovascular: other (v paced) Gastrointestinal: other (edema, pos bowel sounds) Extremities: edema, pitting pedal edema Neurological: unresponsive Results Result Diagram: 07/28/18 0404 07/28/18 0404 Results 24hrs Laboratory Tests Test 07/28/18 09:32 07/28/18 12:18 07/28/18 14:05 07/28/18 18:17 Bedside Glucose 193 176 178 167 Test 07/28/18 21:18 07/29/18 00:04 07/29/18 04:06 07/29/18 04:39 Bedside Glucose 146 152 144 Lab Scanned BLOOD TRANSFUSIO Report N Medications Medication Current Medications Vancomycin HCl (Vanco Iv Per Pharmacy) VANCOMYCIN PER PHARMACY PER PROTOCOL XX ; Start 07/22/18 at 10:30 Acetaminophen (Tylenol Supp) [address] TEMP > 37C; Start 07/22/18 at 12:30 Eye Lubricant (Akwa Oint) 1 applic Q6 BOTH EYES Last administered on 07/29/18at 04:49; Admin Dose 1 APPLIC; Start 07/22/18 at 18:00 Eye Lubricant (Artificial Tears Oph) 2 drop Q6 BOTH EYES Last administered on 07/29/18at 04:49; Admin Dose 2 DROP; Start 07/22/18 at 18:00 Acetaminophen (Tylenol Liquid) 650 mg Q4H PRN NGT TEMP > 37C; Start 07/28/18 at 00:30 Gentamicin Sulfate 60 mg/ Sodium Chloride 51.5 ml @ 103 mls/hr AFTER DIALYSIS IVPB ; Start 07/28/18 at 12:00 Gentamicin Sulfate (Gentamicin Iv Per Pharmacy) PER PHARMACY DOSING NOTE XX ; Start 5/27/19 at 12:00 Lorazepam (Ativan) 2 mg Q2 PRN IV AGITATION; Start 07/28/18 at 16:30 Miscellaneous Information 1 ea NOTE XX ; Start 07/28/18 at 18:30 MARSHALL MORALES July 29, 2018 07:29
--- NOTE | 2018-07-29 09:21 | CONS ---
Assessment/Plan Assessment/Plan Assessment/Plan (Daily) Ventilator settings: AC of 12, tidal volume 400, PEEP of 5, 30% FiO2. Assessment recommendations; 1. Patient admitted with cardiac arrest due to apparent hypoglycemia requiring brief CPR with initial spontaneous recovery of mental status, patient did not meet criteria for hypothermia protocol, unfortunately patient later on developed bilateral cerebellar infarcts with conversion to hemorrhage. 2. Chronic renal failure, dialysis dependent. 3. Anemia and very severe thrombocytopenia. 4. History of cardiac arrhythmia, status post pacemaker placement in the past. 5. History of recent respiratory failure requiring intubation 2 weeks prior to presentation to [facility]. 6. Dependent state. According to patient's family, patient unable to do almost 90% of ADLs. Continue current supportive care. Patient's family has apparently agreed for terminal extubation. Prognosis is extremely poor. 35 minutes of critical care time was spent evaluating the patient. Consultation Date/Type/Reason Admit Date/Time July 22, 2018 at 09:09 Initial Consult Date 07/23/18 Type of Consult Pulmonary/critical care Pulmonary consult requested for evaluation of respiratory failure. Patient is a 27-year-old female who was brought into the hospital with confusion. Patient was found to be severely hypoglycemic but because of hemodynamic instability and poor mental status she was intubated by the ER physician. Patient also was in PEA and required CPR lasting 10 minutes. There was spontaneous recovery of mental status not requiring hypothermia protocol. Patient however has remained mildly hypotensive requiring low-dose Levophed. By the time I saw her, patient is orally intubated and sedated. History was obt ained from medical records as well as from patient's sister who was present in the room. According to the patient's sister patient also had similar episode about 2 weeks ago requiring intubation at another facility. Past medical history; 1. History of end-stage renal disease for the last 5 years. 2. History of retinal pigmentosa. 3. Patient had an episode of febrile seizure 2 weeks ago. Without any prior history of seizure activity. 4. Patient is heavily dependent on ADLs. 5. History of diabetes. 6. History of DVT. Patient however has been off anticoagulation per her radiology rn recommendations. Medications; reviewed. Patient is currently on Levophed 2 mics per minute, Versed 4 mg/h, insulin drip 1 2units/h. Other medications were reviewed as well. Allergies; as outlined above. Family history; she is single. She lives with her family at home. Occupational history; patient is on disability. Review of system; unable to be obtained. General exam; young female, appears quite emaciated. Orally intubated. Sedated. Currently in no distress. Requesting Provider: TRINITY ELENA Date/Time of Note DATE: 07/29/18 TIME: 09:18 24 HR Interval Summary Free Text/Dictation Patient's condition is extremely critical. Patient is completely unresponsive. General exam; young woman, orally intubated, unresponsive, currently no distress. Exam/Review of Systems Exam Vitals Vital Signs Date Temp Pulse Resp B/P (MAP) Pulse Ox O2 O2 Flow FiO2 Time Delivery Rate 07/29/18 97.6 83 14 105/86 100 Mechanical 08:00 (92) Ventilator 07/29/18 30 08:00 Intake and Output 07/28/18 07/28/18 07/29/18 1515:00 23:00 07:00 IntakeIntake Total 390 ml 661 ml 140 ml BalanceBalance 390 ml 661 ml 140 ml Exam H EENT exam; supple neck, positive JVD. There is mild facial edema. Patient has fair dentition. Orally intubated. Pupils are midsize and nonreactive. No neck masses. Chest exam; diminished but clear breath sounds. S1-S2 audible, no murmurs. Pacemaker in left chest wall. Abdomen exam; soft, no organomegaly. Bowel sounds are very sluggish. Extremity exam; 1+ anasarca. Patient does have patchy ecchymosis. LINE ORDERING CLINICIAN exam; patient is unresponsive. Results Result Diagram: 07/28/18 0404 07/28/18 0404 Results 24hrs Laboratory Tests Test 07/28/18 09:32 07/28/18 12:18 07/28/18 14:05 07/28/18 18:17 Bedside Glucose 193 176 178 167 Test 07/28/18 21:18 07/29/18 00:04 07/29/18 04:06 07/29/18 04:39 Bedside Glucose 146 152 144 Lab Scanned BLOOD TRANSFUSIO Report N Test 07/29/18 08:06 Random Vancomycin 20.1 Level Medications Medication Current Medications Vancomycin HCl (Vanco Iv Per Pharmacy) VANCOMYCIN PER PHARMACY PER PROTOCOL XX ; Start 07/22/18 at 10:30 Acetaminophen (Tylenol Supp) 650 mg Q4H PRN [place] TEMP > 37C; Start 07/22/18 at 12:30 Eye Lubricant (Akwa Oint) 1 applic Q6 BOTH EYES Last administered on 07/29/18at 04:49; Admin Dose 1 APPLIC; Start 07/22/18 at 18:00 Eye Lubricant (Artificial Tears Oph) 2 drop Q6 BOTH EYES Last administered on 07/29/18at 04:49; Admin Dose 2 DROP; Start 07/22/18 at 18:00 Acetaminophen (Tylenol Liquid) 650 mg Q4H PRN NGT TEMP > 37C; Start 07/28/18 at 00:30 Gentamicin Sulfate 60 mg/ Sodium Chloride 51.5 ml @ 103 mls/hr AFTER DIALYSIS IVPB ; Start 07/28/18 at 12:00 Gentamicin Sulfate (Gentamicin Iv Per Pharmacy) PER PHARMACY DOSING NOTE XX ; Start 07/28/18 at 12:00 Lorazepam (Ativan) 2 mg Q2 PRN IV AGITATION; Start 07/28/18 at 16:30 Miscellaneous Information 1 ea NOTE XX ; Start 07/28/18 at 18:30 AYSE CAMARGO July 29, 2018 09:21
--- NOTE | 2018-07-29 09:24 | CONS ---
Assessment/Plan Assessment/Plan Assessment/Plan (Daily) Addendum: TONY COSTELLO on 07/29/18 @ 09:21 Spoke with patient's daughter once again this morning they have decided on terminal extubation today after family members arrives. Addendum: TONY COSTELLO on 07/29/18 @ 06:48 Long conversation with patient's daughter. There was much discord last night when other family members get their opinions and cause more problems than good. In my opinion it is better to tell family's what is best to alleviate patient suffering them to propose multiple different options. With that I spoken to patient's daughter this morning and told her that we will start cutting back on nonessential medications labs x-rays EKGs any studies of any kind. Further daughter will need to take the initiative mother is in no emotional condition to make decisions to discontinue all care. I will begin to slowly stop all aggressive intervention treat patient more aggressively for pain and suffering. Later today with daughters agreement we will begin active comfort measures and if possible discontinue dialysis. Plan is agreed upon by patient's daughter. Entering the intensive care unit without their expressed permission. Assessment/Plan Assessment/Plan Assessment/Plan (Daily) Late entry pt seen first July 26 and long conversations were done with family at that time.. Dictation service is down and I cannot document her extensive history beginning as a child. When service is up again extensive Palliative Care note will be completed At this time I have had an hour discussion with first degree family and given options for on-going level of care. They are devastated that pt has an extremely poor chance of complete recovery. Additionally there is much discord amongst family blaming one another for pts ultimate demise. They were told options and that patient should be allowed to a dignified , non painful end of life.. Family reconciled for the inevitable . Will change to comfort measures tonight and terminal extubation. Consultation Date/Type/Reason Admit Date/Time July 22, 2018 at 09:09 Initial Consult Date 07/23/18 Requesting Provider: TRINITY ELENA Date/Time of Note DATE: 07/29/18 TIME: 09:23 Exam/Review of Systems Exam Vitals Vital Signs Date Temp Pulse Resp B/P (MAP) Pulse Ox O2 O2 Flow FiO2 Time Delivery Rate 07/29/18 97.6 83 14 105/86 100 Mechanical 08:00 (92) Ventilator 07/29/18 30 08:00 Intake and Output 07/28/18 07/28/18 07/29/18 1515:00 23:00 07:00 IntakeIntake Total 390 ml 661 ml 140 ml BalanceBalance 390 ml 661 ml 140 ml Results Result Diagram: 07/28/18 0404 07/28/18 0404 Results 24hrs Laboratory Tests Test 07/28/18 09:32 07/28/18 12:18 07/28/18 14:05 07/28/18 18:17 Bedside Glucose 193 176 178 167 Test 07/28/18 21:18 07/29/18 00:04 07/29/18 04:06 07/29/18 04:39 Bedside Glucose 146 152 144 Lab Scanned BLOOD TRANSFUSIO Report N Test 07/29/18 08:06 Random Vancomycin 20.1 Level Medications Medication Current Medications Vancomycin HCl (Vanco Iv Per Pharmacy) VANCOMYCIN PER PHARMACY PER PROTOCOL XX ; Start 07/22/18 at 10:30 Acetaminophen (Tylenol Supp) 650 mg Q4H PRN [place] TEMP > 37C; Start 07/22/18 at 12:30 Eye Lubricant (Akwa Oint) 1 applic Q6 BOTH EYES Last administered on 07/29/18at 04:49; Admin Dose 1 APPLIC; Start 07/22/18 at 18:00 Eye Lubricant (Artificial Tears Oph) 2 drop Q6 BOTH EYES Last administered on 07/29/18at 04:49; Admin Dose 2 DROP; Start 07/22/18 at 18:00 Acetaminophen (Tylenol Liquid) 650 mg Q4H PRN NGT TEMP > 37C; Start 07/28/18 at 00:30 Gentamicin Sulfate 60 mg/ Sodium Chloride 51.5 ml @ 103 mls/hr AFTER DIALYSIS IVPB ; Start 07/28/18 at 12:00 Gentamicin Sulfate (Gentamicin Iv Per Pharmacy) PER PHARMACY DOSING NOTE XX ; Start 07/28/18 at 12:00 Lorazepam (Ativan) 2 mg Q2 PRN IV AGITATION; Start 07/28/18 at 16:30 Miscellaneous Information 1 ea NOTE XX ; Start 07/28/18 at 18:30 TONY COSTELLO July 29, 2018 09:24
[2018-07-29] MEDS ORDERED: morphine 2 MG INJ IV PRN (09:30)
--- NOTE | 2018-07-29 09:33 | CONS ---
Assessment/Plan Assessment/Plan Assessment/Plan (Daily) Hospital Course (Demo Recall) 1. Status post code blue, unresponsive, could be secondary to cardiac in origin/rule out embolic infarct to the brain/hypoglycemia/septic shock. 2. Septic shock with history of endocarditis, source questionable. This patient had a pacemaker in the chest and also has AV graft. bld cx pending so far, hx MSSA in [facility] was hospitalized 3 acute stroke with the hemorrhagic conversion with Acute encephalopathy with bilateral cerebral infarcts 3. Severe anion gap acidosis secondary to hypovolemia/ septic shock with lactic acidosis, resolved 4 Respiratory failure s/p intubation 4. End-stage renal disease on hemodialysis secondary to right kidney atrophy, chronic tubulointerstitial nephritis. 5. Elevated troponin, likely secondary to acute coronary syndrome. non STEMI 6. Chronic atrial fibrillation. 7. Cardiomyopathy, status post pacemaker. 8. Chronic thrombocytopenia. with acute plt drop 9. Chronic megaloblastic anemia. 10. Abnormal LFTs with elevated bilirubin level.? hemolysis 11. Leukocytosis. 12. Anemia, megaloblastic with acute drop r/o hemolysis 13. Hypokalemia 14. hx retinitis pigmentosa with blindness 15. Hypocalcemia Assessment/Plan (Daily) -poor prognosis -Family decided for terminal extubation today so no hemodialysis Consultation Date/Type/Reason Admit Date/Time July 22, 2018 at 09:09 Initial Consult Date Requesting Provider: TRINITY ELENA Date/Time of Note DATE: 07/29/18 TIME: 09:33 24 HR Interval Summary Free Text/Dictation family decided to do comfort care and terminal extubation CT head shows bilateral hemorrhagic conversion of infarcts Anasarca. Exam/Review of Systems Exam Vitals Vital Signs Date Temp Pulse Resp B/P (MAP) Pulse Ox O2 O2 Flow FiO2 Time Delivery Rate 07/29/18 97.6 83 14 105/86 100 Mechanical 08:00 (92) Ventilator 07/29/18 30 08:00 Intake and Output 07/28/18 07/28/18 07/29/18 1515:00 23:00 07:00 IntakeIntake Total 390 ml 661 ml 140 ml BalanceBalance 390 ml 661 ml 140 ml Exam GENERAL: Intubated, obtunded, involuntary jerks?, diffuse anasarca HEENT: Intubated LUNGS: diffusely diminished HEART: S1, S2. No murmur, gallops or rubs. ABDOMEN: Soft, distended EXTREMITIES: RUE dialysis graft, dusky toes bilaterally NEUROLOGIC: obtunded, SKIN: diffuse ecchymosis with skin tears on buttocks Results Result Diagram: 07/28/18 0404 07/28/18 0404 Results 24hrs Laboratory Tests Test 07/28/18 12:18 07/28/18 14:05 07/28/18 18:17 07/28/18 21:18 Bedside Glucose 176 178 167 146 Test 07/29/18 00:04 07/29/18 04:06 07/29/18 04:39 07/29/18 08:06 Bedside Glucose 152 144 Lab Scanned BLOOD TRANSFUSIO Report N Random Vancomycin 20.1 Level Medications Medication Current Medications Vancomycin HCl (Vanco Iv Per Pharmacy) VANCOMYCIN PER PHARMACY PER PROTOCOL XX ; Start 07/22/18 at 10:30 Acetaminophen (Tylenol Supp) 650 mg Q4H PRN [place] TEMP > 37C; Start 07/22/18 at 12:30 Eye Lubricant (Akwa Oint) 1 applic Q6 BOTH EYES Last administered on 07/29/18at 04:49; Admin Dose 1 APPLIC; Start 07/22/18 at 18:00 Eye Lubricant (Artificial Tears Oph) 2 drop Q6 BOTH EYES Last administered on 07/29/18at 04:49; Admin Dose 2 DROP; Start 07/22/18 at 18:00 Acetaminophen (Tylenol Liquid) 650 mg Q4H PRN NGT TEMP > 37C; Start 07/28/18 at 00:30 Lorazepam (Ativan) 2 mg Q2 PRN IV AGITATION; Start 07/28/18 at 16:30 Miscellaneous Information 1 ea NOTE XX ; Start 07/28/18 at 18:30 Morphine Sulfate (morphine) 2 mg Q2H PRN IV SHORTNESS OF BREATH; Start 07/29/18 at 09:30 GIOVANNA TSANG MD July 29, 2018 09:33
--- NOTE | 2018-07-29 09:57 | PN ---
Date/Time of Note Date/Time of Note DATE: 07/29/18 TIME: 09:49 Assessment/Plan VTE Prophylaxis Risk score (from [facility])>0 risk: 8 SCD applied (from [facility]): Yes Pharmacological prophylaxis: NA/contraindicated Pharm contraindication: blood coag disorder Lines/Catheters IV Catheter Type (from [facility] Central Line Central line still needed: Yes Urinary Cath still in place: No Assessment/Plan Hospital Course subjective: obtunded, unresponsive Objective : GENERAL: Intubated, obtunded, minimal foot movement noted, involuntary jerks?, diffuse anasarca HEENT: Intubated, Vent settings noted, breathing over the vent, pupil now dilated to about 4mm, non reactive , chronically blind, conjuctival edema bilaterally, jaundiced LUNGS: diffusely diminished HEART: S1, S2. No murmur, gallops or rubs. 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 She had been recently discharged from outside hospital after being managed for MSSA bacteremia, no clear source has been found. She was home for 3 days before she was brought here. She suffered cardiac arrest in the emergency room after she was treated for hypoglycemia , she is currently managed as follows: 1. Status post cardiac arrest with return of spontaneous circulation Likely secondary to metabolic causes from missed hemodialysis and/or sepsis 2. Acute respiratory failure: Remains ventilator dependent 3. Severe Sepsis with septic shock and severe lactic acidosis and now multiorgan failure -multifactorial, possible PNA / pancreatitis -Patient sister was told that there is no infection of the pacemaker leads at outside hospital -remains on minimal pressor support -ID is following, patient on vancomycin Flagyl and cefepime, blood cultures are negative to date 4. Acute encephalopathy with bilateral cerebral infarcts and hemorrhagic conversion -CT brain does show bilateral cerebral infarcts likely secondary to DIC with repeat CT yesterday showing hemorrhagic conversion -Repeat CT after 24hrs shows stable hemorrhage, no hydrocephalus noted -Neurosurgery consultation appreciated, no indication for surgery at this time -Sepsis also contributing to encephalopathy -patient likely to have suffered significant neurologic injury, but unlikely to be brain at this time. Neurology following 5. Fluid overload secondary to end-stage renal disease and CHF -Echo does show an EF of 45% with diastolic heart failure -Continue HD 6. Acute Pancreatitis -Lipase now trending down: improving 7. NSTEMI type II secondary to demand -Cardiology following 8. LLL pneumonia -recent hospitalization with reports of MSSA bacteremia, continue antibiotics 9. ESRD on HD with severe metabolic acidosis -According to patient's sister patient was started on dialysis 4 years ago, etiology of renal failure is unclear -Follow-up on lupus work-up -HD per renal 10. Paroxysmal Afib : rate controlled 11. S/p Pacemaker / AICD -Family was told that pacer leads were not infected at outside hospital 12. Coagulopathy with DIC -CT brain now shows a stable hemorrhagic conversion, neurosurgery consultation appreciated, no plans for surgery at this time -Patient status post FFP, cryoprecipitate and platelets -hematology concerned for possible autoimmune basis -Treat underlying cause, monitor -Hematology and neurology following -platelets are 5000 today, transfuse 2 units 13. 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 s/p transfusion 15. Hx of Mssa bacteremia -ROSANNE was done without evidence of endocarditis -subsequent blood cultures have been negative -no concern for vegetations on TTE here 16. Jaundice with transaminitis -Patient with likely shock liver -GI following, no clear biliary disease on CT abdomen and ultrasound abdomen 17.. GI bleeding : gopal / hematochezia -No further episodes, likely related to DIC -GI following, monitor 18. Acute colitis -Noted on CT, continue antibiotic 19. Decubitus ulcers -Wound care 20. Cyanosis in the toes bilaterally -Lower extremity arterial Dopplers, vascular surgical consultation Dispo: -Appreciate palliative care input in the management of this patient. At this time the patient is a DO NOT RESUSCITATE. There is clinical evidence of probable brain at this time as well. The plan is family is awaiting a clergy man to evaluate the patient. After that, family has opted for terminal extubation. In the interim continue current care, Care time >40mins , spoke with family extensively Result Diagram: 07/28/18 0404 07/28/18 0404 Results 24hrs Laboratory Tests Test 07/28/18 12:18 07/28/18 14:05 07/28/18 18:17 07/28/18 21:18 Bedside Glucose 176 178 167 146 Test 07/29/18 00:04 07/29/18 04:06 07/29/18 04:39 07/29/18 08:06 Bedside Glucose 152 144 Lab Scanned BLOOD TRANSFUSIO Report N Random Vancomycin 20.1 Level Exam/Review of Systems Exam Vitals Vital Signs Date Temp Pulse Resp B/P (MAP) Pulse Ox O2 O2 Flow FiO2 Time Delivery Rate 07/29/18 97.6 83 14 105/86 100 Mechanical 08:00 (92) Ventilator 07/29/18 30 08:00 Intake and Output 07/28/18 07/28/18 07/29/18 1515:00 23:00 07:00 IntakeIntake Total 390 ml 661 ml 140 ml BalanceBalance 390 ml 661 ml 140 ml Results Results 24hrs Laboratory Tests Test 07/28/18 12:18 07/28/18 14:05 07/28/18 18:17 07/28/18 21:18 Bedside Glucose 176 178 167 146 Test 07/29/18 00:04 07/29/18 04:06 07/29/18 04:39 07/29/18 08:06 Bedside Glucose 152 144 Lab Scanned BLOOD TRANSFUSIO Report N Random Vancomycin 20.1 Level Medications Medication Current Medications Vancomycin HCl (Vanco Iv Per Pharmacy) VANCOMYCIN PER PHARMACY PER PROTOCOL XX ; Start 07/22/18 at 10:30 Acetaminophen (Tylenol Supp) 650 mg Q4H PRN [place] TEMP > 37C; Start 07/22/18 at 12:30 Acetaminophen (Tylenol Liquid) 650 mg Q4H PRN [place] TEMP > 37C; Start 07/28/18 at 00:30 Lorazepam (Ativan) 2 mg Q2 PRN IV AGITATION; Start 07/28/18 at 16:30 Miscellaneous Information 1 ea NOTE XX ; Start 07/28/18 at 18:30 Morphine Sulfate (morphine) 2 mg Q2H PRN IV SHORTNESS OF BREATH; Start 07/29/18 at 09:30 TRINITY ELENA July 29, 2018 09:56
--- NOTE | 2018-07-29 12:20 | CONS ---
Assessment/Plan Assessment/Plan Hospital Course 27 yo F with multiple significant comorbidities who was admitted to ICU following a cardiac arrest. TTM was deferred d/t her improvement in neurologic status. CTH on 07/24 was notable for acute BL cerebellar infarcts... for which neurology is consulted. Her labs suggest DIC, which is certainly the underlying precipitant. Repeat CTH is stable. MRI brain is presently contraindicated d/t pacemaker Echo is unrevealing. LDL 20; haptoglobin <8 On 07/26, the pt was noted to have a worsening mental status. A STAT HCT was notable for hemorrhagic transformation of the cerebellar infarcts. Repeat HCT on 07/27 was stable. P: Await EEG to evaluate for epileptiform activity Hold all anticoagulation/antiplatelet therapy Maintain SBP < 160 CTA H/N to evaluate posterior circulation when medically able Consider complete hypercoagulability panel Cont medical management per primary Cont to hold sedating medications where possible PT/OT/ST when able Will follow clinically, to recommend neurologic studies, as necessary Consultation Date/Type/Reason Admit Date/Time July 22, 2018 at 09:09 Type of Consult Neurology Reason for Consultation acute CVA Requesting Provider: TRINITY ELENA Date/Time of Note DATE: 07/29/18 TIME: 12:20 24 HR Interval Summary Free Text/Dictation Continues critical care. Family is discussing terminal extubation at this time. Subjective hx not possible: pt non-verbal, pt critical Exam Vital Signs Vitals Vital Signs Date Temp Pulse Resp B/P (MAP) Pulse Ox O2 O2 Flow FiO2 Time Delivery Rate 07/29/18 76 12:00 07/29/18 97.8 12 95/72 (80) 100 Mechanical 12:00 Ventilator 07/29/18 30 11:10 Intake and Output 07/28/18 07/28/18 07/29/18 1515:00 23:00 07:00 IntakeIntake Total 390 ml 661 ml 140 ml BalanceBalance 390 ml 661 ml 140 ml Exam PE: Gen Appearance: No Apparent Distress HEENT: Intubated Cardiovascular: Regular rate Abdomen: Soft Extremities: Dry NE: The patient was comatose. Cranial nerve examination was limited by mental status. Pupils were equal and sluggishly reactive to light. There was no afferent pupillary defect. Funduscopic examination was limited. Face was grossly symmetric, w/ present corneal and cough reflexes. Tone was normal. Muscle bulk was normal. I did not see fasciculations. The patient did not withdraw her extremities to noxious stimuli. Coordination and gait testing was limited by mental status. Arm and leg reflexes were within normal limits and symmetric. Coe's sign was absent. Plantar responses were flexor. LUCIA CARRILLO NP July 29, 2018 12:20
[2018-07-29] MEDS ORDERED: LORAZEPAM 2 MG INJ IV PRN (19:00)
[2018-07-29] MEDS ORDERED: morphine (DRIP) 100 MG/100 ML 100 ML IV SCH (20:00)
--- NOTE | 2018-07-31 10:22 | DES ---
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 She had been recently discharged from outside hospital after being managed for MSSA bacteremia, no clear source has been found. She was home for 3 days before she was brought here. She suffered cardiac arrest in the emergency room after she was treated for hypoglycemia , she is currently managed as follows: 1. Status post cardiac arrest with return of spontaneous circulation Likely secondary to metabolic causes from missed hemodialysis and/or sepsis 2. Acute respiratory failure: Remains ventilator dependent 3. Severe Sepsis with septic shock and severe lactic acidosis and now multiorgan failure -multifactorial, possible PNA / pancreatitis 4. Acute encephalopathy with bilateral cerebral infarcts and hemorrhagic conversion 5. Fluid overload secondary to end-stage renal disease and diastolic CHF 6. Acute Pancreatitis 7. NSTEMI type II secondary to demand 8. LLL pneumonia 9. ESRD on HD with severe metabolic acidosis 10. Paroxysmal Afib : rate controlled 11. S/p Pacemaker / AICD 12. Coagulopathy with DIC 13. 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 s/p transfusion 15. Hx of Mssa bacteremia -ROSANNE was done without evidence of endocarditis -subsequent blood cultures have been negative -no concern for vegetations on TTE here 16. Acute ischemic liver with Jaundice with transaminitis 17. GI bleeding : gopal / hematochezia 2/2 DIC 18. Acute colitis 19. Decubitus ulcers 20. Cyanosis in the toes bilaterally . Preliminary Cause of . Admit History 27 yo chronically ill female with a PMH of ESRD, ?cause who was BIBA from home via ambulance because of severe lethargy. Apparently she was found by ems to be hypoglycemic and even upon arriving in ER was still hypoglycemic. She was recently discharged from [facility] 3 days ago after a 12 day hospitalization when she was treated for bacteremia vs endocarditis. She was sent on home on abx including rifampin. Patient improved with glucose administration. Last HD was on saturday as per her Sat schedule. She had only been very lethargic since discharge. She was referred to the emergency room by the dialysis unit and did not receive hemodialysis today.Chest x-ray is showing pulmonary congestion and increased densities in the lung bases for which infiltrates cannot be ruled out. Her CBC is also consistent with leukocytosis and bandemia the patient also has elevated lactic acid levels on chemistry. She is being admitted for possible sepsis with possible pneumonia. There has been no fever, no chest pain, patient also did not report abdominal pain. Family has not noted any bleeding. Hospital Course Unfortunate young lady with end-stage renal disease on hemodialysis in addition to multiple comorbidities who had recently been discharged from another hospital where she was admitted and managed for bacteremia for which the cause was unclear. She had just been discharged home and was home for about 3 to 4 days b efore the family had to bring her back to the hospital here because of lethargy and unresponsiveness. Initially when she came in she was found to be severely hypoglycemic and she was treated for this and she recovered. Not too long after her recovery though the patient suffered a cardiac arrest in the emergency room and had to be resuscitated with return of spontaneous circulation. Post resuscitation, the patient remained in systemic shock, this was thought to be likely septic in origin as there was some chest x-ray concern for possible pneumonia. There was also evidence of fluid overload though and electrolyte abnormalities likely secondary to the fact that the patient had missed dialysis because she had to be divided to the emergency room. Unfortunately due to shock, she could not receive dialysis right away, she was admitted to the intensive care unit, started on aggressive pressor support, is also started on aggressive antibiotic therapy and never received systemic steroids and albumin therapy to support her circulation. Unfortunately patient developed multiorgan failure including NSTEMI, severe ischemic hepatic injury, and also was found by CAT scan to have suffered multiple lacunar infarcts. Patient also developed DIC and also developed hemorrhagic conversion of her infarcts. She unfortunately never regained consciousness and eventually on the day of her passing, there was concern for possible brain as her pupils had become dilated, though she they were never really reactive based on her history of retinitis pigmentosa, and essentially were dilated and did not react to light. She was never formally assess for brain however. Palliative care was following the patient throughout her hospitalization, and after multiple updates and review of her clinical state with her family, the family opted for terminal extubation and comfort measures. The patient passed not too long after. For details of pronouncement notes, please review the notes from the provider who pronounced the patient. . TRINITY ELENA July 31, 2018 10:22
== END 2018-07-29 23:19 | disposition expired | DRG 870 ==
LOC: E/R 08:00 → ICU 09:09 → CANRESERV 10:31 → EDBEDREQSVC 10:50 → EDBEDREQ 10:50
PROVIDERS: ADMIT Family Medicine; ATTEND Family Medicine
PROC: 5A1D70Z Performance of Urinary Filtration, Intermittent, Less than 6 Hours Per Day (ICD-10-PCS; principal; 2018-07-22)
PROC: 5A1955Z Respiratory Ventilation, Greater than 96 Consecutive Hours (ICD-10-PCS; 2018-07-22)
PROC: 0BH18EZ Insertion of Endotracheal Airway into Trachea, Via Natural or Artificial Opening Endoscopic (ICD-10-PCS; 2018-07-22)
PROC: 5A12012 Performance of Cardiac Output, Single, Manual (ICD-10-PCS; 2018-07-22)
PROC: 02HV33Z Insertion of Infusion Device into Superior Vena Cava, Percutaneous Approach (ICD-10-PCS; 2018-07-22)
PROC: 04HY32Z Insertion of Monitoring Device into Lower Artery, Percutaneous Approach (ICD-10-PCS; 2018-07-22)
PROC: 30243N0 Transfusion of Autologous Red Blood Cells into Central Vein, Percutaneous Approach (ICD-10-PCS; 2018-07-23)
PROC: 30243R1 Transfusion of Nonautologous Platelets into Central Vein, Percutaneous Approach (ICD-10-PCS; 2018-07-24)
PROC: 30233K1 Transfusion of Nonautologous Frozen Plasma into Peripheral Vein, Percutaneous Approach (ICD-10-PCS; 2018-07-24)
PROC: 30233M1 Transfusion of Nonautologous Plasma Cryoprecipitate into Peripheral Vein, Percutaneous Approach (ICD-10-PCS; 2018-07-24)
DX: A41.9 Sepsis, unspecified organism (principal); N18.6 End stage renal disease; R65.21 Severe sepsis with septic shock; K85.90 Acute pancreatitis without necrosis or infection, unspecified; G93.41 Metabolic encephalopathy; I63.9 Cerebral infarction, unspecified; J18.9 Pneumonia, unspecified organism; I21.A1 Myocardial infarction type 2; D65 Disseminated intravascular coagulation [defibrination syndrome]; K72.00 Acute and subacute hepatic failure without coma; I61.4 Nontraumatic intracerebral hemorrhage in cerebellum; J96.01 Acute respiratory failure with hypoxia; G93.49 Other encephalopathy; E87.2 Acidosis; E46 Unspecified protein-calorie malnutrition; I42.9 Cardiomyopathy, unspecified; K92.1 Melena; Z68.1 Body mass index [BMI] 19.9 or less, adult; I46.8 Cardiac arrest due to other underlying condition; E16.2 Hypoglycemia, unspecified; H35.52 Pigmentary retinal dystrophy; I48.0 Paroxysmal atrial fibrillation; D53.1 Other megaloblastic anemias, not elsewhere classified; K52.9 Noninfective gastroenteritis and colitis, unspecified; L89.90 Pressure ulcer of unspecified site, unspecified stage; E87.70 Fluid overload, unspecified; E87.6 Hypokalemia; D69.6 Thrombocytopenia, unspecified; H54.8 Legal blindness, as defined in USA; E83.51 Hypocalcemia; J01.90 Acute sinusitis, unspecified; Z99.2 Dependence on renal dialysis; Z95.810 Presence of automatic (implantable) cardiac defibrillator
CPT/HCPCS: 31500; 36415; 36430; 36600; 70450; 71045; 74018; 74176; 76705; 80048; 80053; 80061; 80076; 80202; 82140; 82150; 82390; 82525; 82550; 82553; 82607; 82746; 82784; 82803; 82962; 83010; 83540; 83605; 83615; 83690; 83735; 84100; 84132; 84145; 84484; 85025; 85049; 85335; 85362; 85378; 85384; 85610; 85613; 85670; 85730; 86022; 86038; 86147; 86160; 86255; 86320; 86376; 86644; 86706; 86803; 86850; 86880; 86900; 86901; 86920; 86945; 87081; 87340; 90935; 92950; 93005; 93306; 94002; 94003; 94770; 96365; 96375; J0171; J0456; J0610; J0692; J0696; J1265; J1580; J1720; J1815; J2001; J2250; J2270; J2370; J2405; J3010; J3370; J3475; J3480; J7030; J7040; J7042; J7050; J7070; P9016; P9035; P9047; P9059